=== PATIENT | male | born 1950 | race Caucasian/White ===

== ENCOUNTER → 2020-07-14 13:08 | Outpatient (BNVA) | payer MEDICARE, MEDICAID, SELFPAY | PROVIDERS: PCP Internal Medicine Medical Oncology; Referring Provider Internal Medicine Medical Oncology; Visit Provider Hospitalist | DX: J44.9 Chronic obstructive pulmonary disease, unspecified (principal); R06.00 Dyspnea, unspecified | CPT/HCPCS: 99202 ==

== ENCOUNTER → 2020-07-25 13:51 | Outpatient (BNVA) | payer MEDICARE, MEDICAID, SELFPAY | PROVIDERS: PCP Internal Medicine Medical Oncology; Referring Provider Internal Medicine Medical Oncology; Visit Provider Physician Assistant Medical | DX: Z76.89 Persons encountering health services in other specified circumstances (principal) ==

== ENCOUNTER 2020-08-04 15:15 | Outpatient (REF) | payer MEDICARE, MEDICAID, SELFPAY ==
--- NOTE | 2020-08-04 15:17 | CT_ITS ---
EXAMINATION: CT CHEST SCREENING CLINICAL INFORMATION: History of nicotine dependence. COMPARISON: Chest x-ray 04/09/2020. TECHNIQUE: Multidetector volumetric CT imaging of the chest is performed without contrast using low dose technique. Additional 2D coronal and sagittal reformatted images and axial 3D maximum intensity projection (MIP) images are generated on the CT workstation. This CT examination was performed using dose optimization techniques as appropriate, variously including the following: *Automated exposure control *Adjustment of mA and/or kV according to patient size (this includes techniques or standardized protocols for targeted exams where dose is matched to indication/reason for exam; i.e. extremities or head) *Use of iterative reconstruction technique DLP: 83 mGy-cm FINDINGS: LUNGS: There is mild centrilobular emphysema with bilateral apical cysts. There is a 7 mm nodule superior segment left major fissure likely intrafissural lymph node. No additional pulmonary nodule seen. Minimal reticular interstitial changes in left lung base lateral segment likely scarring or atelectasis. MEDIASTINUM: The mediastinum is normal. PLEURA: There is no pleural effusion. No pleural mass or thickening. AXILLA: No lymphadenopathy. UPPER ABDOMEN: Visualized liver, spleen, pancreas and bilateral adrenal glands are unremarkable. There are punctate radiopaque calculi upper poles of both kidneys. OSSEOUS STRUCTURES: No lytic or sclerotic process seen. There is a small bone island left 7th posterior rib. Mild degenerative vacuum disc phenomena and ventral spondylosis seen in mid and lower dorsal spine. CT/CT lung screening IMPRESSION: Emphysema without acute process. 7 mm nodule likely intrafissural lymph node. No pulmonary nodule or abnormal mediastinal or axillary lymphadenopathy seen. ASSESSMENT: Lung-RADS category 2: Benign. RECOMMENDATION: Low dose annual CT chest
== END 2020-08-04 15:16 | disposition home or self-care (01) ==
LOC: HO.CT 15:15
PROVIDERS: PCP Internal Medicine Medical Oncology; Visit Provider Physician Assistant Medical
DX: Z12.2 Encounter for screening for malignant neoplasm of respiratory organs (principal); Z87.891 Personal history of nicotine dependence
CPT/HCPCS: 71250

== ENCOUNTER → 2020-09-22 15:05 | Outpatient (BNVA) | payer MEDICARE, MEDICAID, SELFPAY | PROVIDERS: PCP Internal Medicine Medical Oncology; Visit Provider Hospitalist | DX: J41.8 Mixed simple and mucopurulent chronic bronchitis (principal); R06.00 Dyspnea, unspecified; R91.1 Solitary pulmonary nodule | CPT/HCPCS: 99212 ==

== ENCOUNTER 2021-01-15 10:26 | Outpatient (REF) | payer MEDICARE, MEDICAID, SELFPAY ==
[2021-01-15 11:26] LABS: MANUAL DIFF FLAG NO
[2021-01-15 11:36] LABS: Basophils Absolute Auto 0.1 X10*3/uL (0.0-0.2); Basophils Percent Auto 0.7 % (0-2); Eosinophils Absolute Auto 0.1 X10*3/uL (0.0-0.4); Eosinophils Percent Auto 0.8 % (0-4); Hematocrit 46.6 % (42-52); Hemoglobin 15.1 g/dl (14.0-18.0); Imm Gran Abs Auto 0.02 X10*3/uL (0.00-0.03); Imm Gran Pct Auto 0.2 % (0.0-0.4); Lymphocytes Absolute Auto 1.2 X10*3/uL (1.2-4.9); Mean Corpuscular HGB Conc 32.4 g/dl (31.0-36.0); Mean Corpuscular Volume 92.6 fL (80-98); Monocytes Absolute Auto 1.1 X10*3/uL (0.1-1.2); Monocytes Percent Auto 12.2 % (2-11); Neutrophils Absolute Auto 6.6 X10*3/uL (2.0-8.3); Neutrophils Percent Auto 73.1 % (45-73); Platelet Count 309 X10*3/uL (160-400); Red Blood Count 5.03 X10*6/uL (4.60-5.80); Red Cell Distribution Width 13.7 % (11.0-16.0); White Blood Count 9.1 X10*3/uL (4.8-10.8)
[2021-01-15 12:02] LABS: Alanine Aminotransferase 28 U/L (0-40); Albumin Level 4.3 g/dL (3.5-5.0); Alkaline Phosphatase 114 U/L (39-117); Anion Gap 13 (12-20); Aspartate Amino Transferase 25 U/L (5-37); Bilirubin Total 0.8 mg/dL (0.0-1.0); Blood Urea Nitrogen 17 mg/dL (9-16); Calcium 9.3 mg/dL (8.4-10.2); Carbon Dioxide 24 mmol/L (22-29); Chloride 105 mmol/L (96-108); Cholesterol 189 mg/dL; Estimated Glomerular Filt Rate > 60; Glucose Fasting 100 mg/dL (60-99); HDL Cholesterol 39 mg/dL; LDL Cholesterol Calculated 121 mg/dl; Potassium 4.9 mmol/L (3.3-5.1); Sodium 137 mmol/L (135-145); Total Protein 7.1 g/dL (6.5-8.0); Triglycerides 149 mg/dL
[2021-01-15 12:10] LABS: Prostate Specific Antigen 4.07 ng/mL (<0.05-4.0)
== END 2021-01-15 10:27 | disposition home or self-care (01) ==
LOC: HO.LAB 10:26
PROVIDERS: PCP Internal Medicine Medical Oncology; Visit Provider Internal Medicine Medical Oncology
DX: Z12.5 Encounter for screening for malignant neoplasm of prostate (principal); J44.9 Chronic obstructive pulmonary disease, unspecified; E66.9 Obesity, unspecified; N40.0 Benign prostatic hyperplasia without lower urinary tract symptoms
CPT/HCPCS: 36415; 80053; 80061; 84153; 85025

== ENCOUNTER → 2021-03-16 14:49 | Outpatient (BNVA) | payer MEDICARE, MEDICAID, SELFPAY | PROVIDERS: PCP Internal Medicine Medical Oncology; Visit Provider Hospitalist | DX: J44.9 Chronic obstructive pulmonary disease, unspecified (principal); R06.00 Dyspnea, unspecified; R91.1 Solitary pulmonary nodule; Z87.891 Personal history of nicotine dependence; Z79.899 Other long term (current) drug therapy | CPT/HCPCS: 99212 ==

== ENCOUNTER → 2021-09-21 15:02 | Outpatient (BNVA) | payer MEDICARE, MEDICAID, SELFPAY | PROVIDERS: PCP Internal Medicine Medical Oncology; Visit Provider Hospitalist | DX: J44.1 Chronic obstructive pulmonary disease with (acute) exacerbation (principal); R91.1 Solitary pulmonary nodule; R97.20 Elevated prostate specific antigen [PSA]; Z79.899 Other long term (current) drug therapy | CPT/HCPCS: 99212 ==

== ENCOUNTER 2021-10-27 14:18 | Outpatient (REF) | payer MEDICARE, MEDICAID, SELFPAY ==
--- NOTE | ~2021-10-27 | CT_ITS ---
EXAMINATION: CT CHEST SCREENING CLINICAL INFORMATION: Smoker COMPARISON: Previous chest CT July 2020 TECHNIQUE: Multidetector volumetric CT imaging of the chest is performed without contrast using low dose technique. Additional 2D coronal and sagittal reformatted images and axial 3D maximum intensity projection (MIP) images are generated on the CT workstation. This CT examination was performed using dose optimization techniques as appropriate, variously including the following: *Automated exposure control *Adjustment of mA and/or kV according to patient size (this includes techniques or standardized protocols for targeted exams where dose is matched to indication/reason for exam; i.e. extremities or head) *Use of iterative reconstruction technique DLP: 81 mGy-cm FINDINGS: LUNGS: Her is evidence of emphysema. There is a 6 mm peripheral or subpleural left lower lobe nodule adjacent to the fissure axial image 245 series 5 that is stable. The lungs are otherwise clear. No endobronchial or endotracheal lesion is seen.. MEDIASTINUM: The mediastinum is normal. PLEURA: There is no pleural effusion. No pleural mass or thickening. AXILLA: No lymphadenopathy. UPPER ABDOMEN: There are small stones in the upper pole of the left kidney. There is question of a lobulated contour to the medial segment of the left lobe of the liver for example axial image 63 that is stable. The stomach is not optimally distended. There is question of wall thickening of the proximal stomach and small posterior diverticulum. OSSEOUS STRUCTURES: There are degenerative changes of the spine. CT/CT lung screening IMPRESSION: Emphysema. Stable left lower lobe nodule probably representing a subpleural nodule. ASSESSMENT: Lung-RADS category 2: Benign S for abdominal findings of left renal stones, lobulated contour of the medial segment the left lobe of the liver and question of gastric wall thickening. There is diverticulosis. RECOMMENDATION: Annual low-dose chest CT follow-up recommended.
== END 2021-10-27 14:19 | disposition home or self-care (01) ==
LOC: HO.CT 14:18
PROVIDERS: PCP Internal Medicine Medical Oncology; Visit Provider Physician Assistant Medical
DX: Z12.2 Encounter for screening for malignant neoplasm of respiratory organs (principal); F17.200 Nicotine dependence, unspecified, uncomplicated
CPT/HCPCS: 71271

== ENCOUNTER → 2021-11-16 14:54 | Outpatient (BNVA) | payer MEDICARE, MEDICAID, SELFPAY | PROVIDERS: PCP Internal Medicine Medical Oncology; Visit Provider Hospitalist | DX: J44.1 Chronic obstructive pulmonary disease with (acute) exacerbation (principal); R91.1 Solitary pulmonary nodule; R06.00 Dyspnea, unspecified; R97.20 Elevated prostate specific antigen [PSA]; Z87.891 Personal history of nicotine dependence | CPT/HCPCS: 99212 ==

== ENCOUNTER → 2022-02-22 14:57 | Outpatient (BNVA) | payer MEDICARE, MEDICAID, SELFPAY | PROVIDERS: PCP Internal Medicine Medical Oncology; Visit Provider Hospitalist | DX: J44.1 Chronic obstructive pulmonary disease with (acute) exacerbation (principal); R91.1 Solitary pulmonary nodule; R06.00 Dyspnea, unspecified; Z79.899 Other long term (current) drug therapy | CPT/HCPCS: 99212 ==

== ENCOUNTER 2022-06-16 14:27 | Outpatient (REF) | payer MEDICARE, MEDICAID, SELFPAY ==
[2022-06-16 16:47] LABS: MANUAL DIFF FLAG NO
[2022-06-16 16:53] LABS: Basophils Absolute Auto 0.1 X10*3/uL (0.0-0.2); Basophils Percent Auto 0.7 % (0-2); Eosinophils Absolute Auto 0.1 X10*3/uL (0.0-0.4); Eosinophils Percent Auto 0.7 % (0-4); Hematocrit 46.5 % (42.0-52.0); Hemoglobin 15.7 g/dl (14.0-18.0); Imm Gran Abs Auto 0.02 X10*3/uL (0.00-0.03); Imm Gran Pct Auto 0.2 % (0.0-0.4); Lymphocytes Absolute Auto 1.5 X10*3/uL (1.2-4.9); Lymphocytes Percent Auto 16.1 % (20-40); Mean Corpuscular HGB Conc 33.8 g/dl (31.0-36.0); Mean Corpuscular Hemoglobin 30.5 pg (27.0-33.0); Mean Corpuscular Volume 90.3 fL (80.0-98.0); Mean Platelet Volume 9.1 fL (9.4-12.4); Monocytes Absolute Auto 1.1 X10*3/uL (0.1-1.2); Monocytes Percent Auto 11.7 % (2-11); Neutrophils Absolute Auto 6.6 x10*3/uL (2.0-8.3); Neutrophils Percent Auto 70.6 % (45-73); Platelet Count 343 X10*3/uL (160-400); Red Blood Count 5.15 X10*6/uL (4.60-5.80); Red Cell Distribution Width 14.2 % (11.0-16.0); White Blood Count 9.4 X10*3/uL (4.8-10.8)
[2022-06-16 17:06] LABS: Alanine Aminotransferase 29 U/L (0-40); Albumin Level 4.4 g/dL (3.5-5.0); Alkaline Phosphatase 111 U/L (39-117); Anion Gap 16 (12-20); Aspartate Amino Transferase 28 U/L (5-37); Bilirubin Total 0.7 mg/dL (0.0-1.0); Blood Urea Nitrogen 25 mg/dL (9-16); Calcium 9.6 mg/dL (8.4-10.2); Carbon Dioxide 23 mmol/L (22-29); Chloride 103 mmol/L (96-108); Cholesterol 217 mg/dL; Estimated Glomerular Filt Rate 58; Glucose Fasting 89 mg/dL (60-99); HDL Cholesterol 44 mg/dL; LDL Cholesterol Calculated 141 mg/dl; Potassium 4.9 mmol/L (3.3-5.1); Sodium 137 mmol/L (135-145); Total Protein 7.5 g/dL (6.5-8.0); Triglycerides 162 mg/dL
[2022-06-16 17:28] LABS: Prostate Specific Antigen 3.97 ng/mL (<0.05-4.0)
== END 2022-06-16 14:28 | disposition home or self-care (01) ==
LOC: HO.HMGCLDS 14:27
PROVIDERS: PCP Internal Medicine Medical Oncology; Visit Provider Internal Medicine Medical Oncology
DX: N40.0 Benign prostatic hyperplasia without lower urinary tract symptoms (principal); E66.9 Obesity, unspecified; Z12.5 Encounter for screening for malignant neoplasm of prostate
CPT/HCPCS: 36415; 80053; 80061; 84153; 85025

== ENCOUNTER → 2022-12-13 14:19 | Outpatient (BNVA) | payer MEDICARE, MEDICAID, SELFPAY | PROVIDERS: PCP Internal Medicine Medical Oncology; Visit Provider Hospitalist | DX: J44.1 Chronic obstructive pulmonary disease with (acute) exacerbation (principal); R91.1 Solitary pulmonary nodule; R06.00 Dyspnea, unspecified; Z79.899 Other long term (current) drug therapy | CPT/HCPCS: 99212 ==

== ENCOUNTER 2023-01-17 16:06 | Outpatient (REF) | payer MEDICARE, MEDICAID, SELFPAY ==
--- NOTE | ~2023-01-17 | CT_ITS ---
EXAMINATION: CT CHEST SCREENING CLINICAL INFORMATION: Former smoker. Quit 15 years ago. 59 pack year history. COMPARISON: Previous CT scans most recent October 2021 TECHNIQUE: Multidetector volumetric CT imaging of the chest is performed without contrast using low dose technique. Additional 2D coronal and sagittal reformatted images and axial 3D maximum intensity projection (MIP) images are generated on the CT workstation. This CT examination was performed using dose optimization techniques as appropriate, variously including the following: *Automated exposure control *Adjustment of mA and/or kV according to patient size (this includes techniques or standardized protocols for targeted exams where dose is matched to indication/reason for exam; i.e. extremities or head) *Use of iterative reconstruction technique DLP: 80 mGy-cm FINDINGS: LUNGS: There is evidence of emphysema. There is a peripheral or subpleural left lower lobe nodule adjacent to the fissure measuring 2 x 6 mm axial image 287 series 5 that is stable. There is mild subsegmental atelectasis in the left lower lobe. There are increased peripheral reticular markings seen question and mild traction bronchiolectasis questionable for mild interstitial lung disease. No endobronchial or endotracheal lesion MEDIASTINUM: Question right 1 cm thyroid nodule versus paratracheal mediastinal lymph node axial image 13 series 3. This is stable and no imaging follow-up recommended.. The mediastinum is otherwise normal. CORONARY ARTERY CALCIFICATION: None visualized on this study. PLEURA: There is no pleural effusion. No pleural mass or thickening. AXILLA: No lymphadenopathy. UPPER ABDOMEN: Small left renal stones. OSSEOUS STRUCTURES: Degenerative changes of the spine. CT/CT lung screening IMPRESSION: Emphysema. Stable 6 mm left lower lobe nodule. Question mild interstitial lung disease. ASSESSMENT: Lung-RADS category 2: Benign RECOMMENDATION: Annual low-dose chest CT follow-up recommended.
== END 2023-01-17 16:07 | disposition home or self-care (01) ==
LOC: HO.CT 16:06
PROVIDERS: PCP Internal Medicine Medical Oncology; Visit Provider Physician Assistant Medical
DX: Z12.2 Encounter for screening for malignant neoplasm of respiratory organs (principal); Z87.891 Personal history of nicotine dependence
CPT/HCPCS: 71271

== ENCOUNTER 2023-02-02 13:32 | Outpatient (REF) | payer MEDICARE, MEDICAID, SELFPAY ==
[2023-02-02 16:29] LABS: MANUAL DIFF FLAG NO
[2023-02-02 16:38] LABS: Basophils Absolute Auto 0.1 X10*3/uL (0.0-0.2); Basophils Percent Auto 0.8 % (0-2); Eosinophils Absolute Auto 0.1 X10*3/uL (0.0-0.4); Eosinophils Percent Auto 1.5 % (0-4); Hematocrit 47.3 % (42.0-52.0); Hemoglobin 15.6 g/dl (14.0-18.0); Imm Gran Abs Auto 0.03 X10*3/uL (0.00-0.03); Imm Gran Pct Auto 0.3 % (0.0-0.4); Lymphocytes Absolute Auto 1.6 X10*3/uL (1.2-4.9); Mean Corpuscular Hemoglobin 30.6 pg (27.0-33.0); Mean Corpuscular Volume 92.9 fL (80.0-98.0); Mean Platelet Volume 9.6 fL (9.4-12.4); Monocytes Absolute Auto 1.2 X10*3/uL (0.1-1.2); Monocytes Percent Auto 12.2 % (2-11); Neutrophils Absolute Auto 6.6 x10*3/uL (2.0-8.3); Neutrophils Percent Auto 68.2 % (45-73); Platelet Count 330 X10*3/uL (160-400); Red Blood Count 5.09 X10*6/uL (4.60-5.80); Red Cell Distribution Width 13.3 % (11.0-16.0); White Blood Count 9.7 X10*3/uL (4.8-10.8)
[2023-02-02 16:56] LABS: Alanine Aminotransferase 43 U/L (0-40); Albumin Level 4.3 g/dL (3.5-5.0); Alkaline Phosphatase 102 U/L (39-117); Anion Gap 14 (12-20); Aspartate Amino Transferase 27 U/L (5-37); Bilirubin Total 0.8 mg/dL (0.0-1.0); Blood Urea Nitrogen 20 mg/dL (9-16); Calcium 10.5 mg/dL (8.4-10.2); Carbon Dioxide 25 mmol/L (22-29); Chloride 104 mmol/L (96-108); Cholesterol 207 mg/dL; Estimated Glomerular Filt Rate 53; Glucose Fasting 96 mg/dL (60-99); HDL Cholesterol 41 mg/dL; LDL Cholesterol Calculated 131 mg/dl; Sodium 138 mmol/L (135-145); Total Protein 7.3 g/dL (6.5-8.0); Triglycerides 175 mg/dL
[2023-02-02 17:06] LABS: Prostate Specific Antigen 5.04 ng/mL (<0.05-4.0)
== END 2023-02-02 13:33 | disposition home or self-care (01) ==
LOC: HO.HMGCLDS 13:32
PROVIDERS: Visit Provider Internal Medicine Medical Oncology
DX: Z12.5 Encounter for screening for malignant neoplasm of prostate (principal); N40.0 Benign prostatic hyperplasia without lower urinary tract symptoms; K21.9 Gastro-esophageal reflux disease without esophagitis; E66.9 Obesity, unspecified
CPT/HCPCS: 36415; 80053; 80061; 84153; 85025

== ENCOUNTER 2023-07-27 14:16 | Outpatient (REF) | payer MEDICARE, MEDICAID, SELFPAY ==
[2023-07-27 15:56] LABS: MANUAL DIFF FLAG NO
[2023-07-27 15:59] LABS: Basophils Absolute Auto 0.1 X10*3/uL (0.0-0.2); Basophils Percent Auto 0.8 % (0-2); Eosinophils Absolute Auto 0.2 X10*3/uL (0.0-0.4); Hematocrit 47.2 % (42.0-52.0); Hemoglobin 15.6 g/dl (14.0-18.0); Imm Gran Abs Auto 0.03 X10*3/uL (0.00-0.03); Imm Gran Pct Auto 0.3 % (0.0-0.4); Lymphocytes Absolute Auto 1.5 X10*3/uL (1.2-4.9); Lymphocytes Percent Auto 15.2 % (20-40); Mean Corpuscular HGB Conc 33.1 g/dl (31.0-36.0); Mean Corpuscular Hemoglobin 30.4 pg (27.0-33.0); Mean Platelet Volume 9.1 fL (9.4-12.4); Monocytes Absolute Auto 1.2 X10*3/uL (0.1-1.2); Monocytes Percent Auto 12.2 % (2-11); Neutrophils Absolute Auto 6.6 x10*3/uL (2.0-8.3); Neutrophils Percent Auto 69.5 % (45-73); Platelet Count 313 X10*3/uL (160-400); Red Blood Count 5.13 X10*6/uL (4.60-5.80); Red Cell Distribution Width 13.2 % (11.0-16.0); White Blood Count 9.5 X10*3/uL (4.8-10.8)
[2023-07-27 16:13] LABS: Alanine Aminotransferase 34 U/L (0-40); Albumin Level 4.4 g/dL (3.5-5.0); Alkaline Phosphatase 98 U/L (39-117); Anion Gap 11 (12-20); Aspartate Amino Transferase 26 U/L (5-37); Bilirubin Total 0.4 mg/dL (0.0-1.0); Blood Urea Nitrogen 19 mg/dL (9-16); Calcium 9.9 mg/dL (8.4-10.2); Carbon Dioxide 26 mmol/L (22-29); Chloride 107 mmol/L (96-108); Cholesterol 212 mg/dL (<200); Estimated Glomerular Filt Rate 59; Glucose Fasting 110 mg/dL (60-99); HDL Cholesterol 42 mg/dL (>40); LDL Cholesterol Calculated 142 mg/dL (<100); Potassium 5.1 mmol/L (3.3-5.1); Sodium 139 mmol/L (135-145); Total Protein 7.8 g/dL (6.5-8.0); Triglycerides 141 mg/dL (<150)
[2023-07-29 11:18] LABS: Percent Free Prostate Spec Ag 20 % (calc) (>25); Prostate Specific Ag Total 4.9 ng/mL (< OR = 4.0)
== END 2023-07-27 14:17 | disposition home or self-care (01) ==
LOC: HO.HMGCLDS 14:16
PROVIDERS: PCP Internal Medicine Medical Oncology; Visit Provider Internal Medicine Medical Oncology
DX: Z12.5 Encounter for screening for malignant neoplasm of prostate (principal); N40.0 Benign prostatic hyperplasia without lower urinary tract symptoms; E66.3 Overweight
CPT/HCPCS: 36415; 80053; 80061; 84154; 85025

== ENCOUNTER 2023-11-14 15:07 | Outpatient (REF) | payer MEDICARE, MEDICAID, SELFPAY ==
[2023-11-14 09:06] VITALS: PULSE 92; RESP 14; O2SAT 96
--- NOTE | 2023-11-14 16:09 | PFT_ITS ---
Indication: COPD Spirometry [FEV1 to FVC 45%; FEV1 1.84 L; FVC 4.05 L. there was a significant response to bronchodilators noted. Maximum voluntary ventilation 50% predicted.] Lung Volumes Could not be measured after multiple attempts. Diffusion Capacity [DLCO 51% predicted] Comparisons [none] Interpretation [There has an obstructive ventilatory defect consistent with COPD, moderate to severe. There was a significant response to bronchodilators noted. This is a moderate decrease the maximum voluntary ventilation. Lung volumes could not be measured. The patient has a moderate diffusion impairment likely secondary to emphysematous changes and or other parenchymal lung conditions should be considered.] MTDD
== END 2023-11-14 15:08 | disposition home or self-care (01) ==
LOC: HO.RESP 15:07
PROVIDERS: PCP Internal Medicine Medical Oncology; Visit Provider Hospitalist
DX: J44.9 Chronic obstructive pulmonary disease, unspecified (principal)
CPT/HCPCS: 94010; 94640; 94727; 94729

== ENCOUNTER → 2023-11-14 16:09 | Outpatient (BNV) | payer MEDICARE, MEDICAID, SELFPAY | PROVIDERS: PCP Internal Medicine Medical Oncology; Visit Provider Hospitalist | DX: J44.9 Chronic obstructive pulmonary disease, unspecified (principal) | CPT/HCPCS: 94060; 94729 ==

== ENCOUNTER 2023-12-14 11:04 | Outpatient (AMB) | payer MEDICARE, MEDICAID, SELFPAY ==
[2023-12-14 11:12] VITALS: PULSE 89; O2SAT 93; BMI 28.9
--- NOTE | 2023-12-14 11:12 | A.OFFVIS_ITS ---
Intake Vital Signs 12/14/23 11:12 Height 6 ft 2 in Weight 225 lb BMI 28.9 Pulse 89 Pulse Source Pulse Oximeter Pulse Oximetry (%) 93 Oxygen Delivery Method Room Air Intake Visit Reasons: PFT Results/COPD Performance Reporter Required: No Allergies No Known Allergies Allergy (Verified 12/14/23 11:14) HPI HPI Comments History of Present Illness Details The patient is a 73 year-old gentleman known history of tobacco dependency complaining of worsening shortness of breath. Apparently patient was a lifelong smoker although he quit about 9 years ago. He quit back down after developing a COPD exacerbation due to a viral syndrome. He has not smoking recess. He has been complaining of worsening dyspnea on exertion moderate severity. 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 He is also having hard time going up a flight of stairs. Therefore he underwent a chest x-ray demonstrating hyperinflated lungs consistent with COPD. He also underwent pulmonary function studies demonstrating severe obstructive ventilatory defect consistent with severe COPD. Also has a moderate diffusion impairment. 09/22/2020 the patient is here for pulmonary follow-up visit. The patient overall feels little better with the medication. He has been using the Breo at nighttime in addition to using the rescue inhaler. He got a prescription for the albuterol generic in he does not feel like it works just as good as the ventilator. She rather have the ventilator HFA. I will requested if he can get it if not he knows that he will have to try the read 1. in the meantime he has been taking the Breo at nighttime he is going to change due to daytime and can make sure a rinses mouth well. He complains of chest congestion and difficulty to expectorating. This consistent with his chronic bronchitis. At this point will try to minimize prednisone. He will be a great candidate for Daliresp. Therefore he is going to started he will started 3 times a week and then increases slowly as he is tolerating the GI symptoms subside. If the symptoms do not subside he is to call and also on the lower dose. Patient is to continue using his respiratory therapy. We did review his lung cancer screening CT scan back in July 2020 which demonstrated a 7 mm pulmonary nodule that will need follow-up. He was read as a rads 2 due to the fact that appears to be trying gland shape and more consistent with a lymph node. 03/16/2021 the patient is here for pulmonary follow-up visit. Overall the patient has been doing better on scarring respiratory regimen. The Breo inhaler has been helpful although he does complaint of throat irritation he has been tolerating the Daliresp. Still complaining of getting winded specially with activity. [id number] severity. Does get better with rest. On examination he still wheezy. Therefore will go ahead and had Spiriva to his regimen hoping to maximize his respiratory therapy. In the meantime the patient has not had any additional imaging since back in July. He is scheduled to undergo a repeat CT scan in July 2021. We initially spoken about doing earlier but at this point which is wait to done. Will going to continue with the lung cancer screening program. If the patient develops in other significant symptoms he is call the office and we can always reassess the earlier time. In the meantime will follow up after his CT scan. 09/21/2021 the patient is here for pulmonary follow-up visit. He is complaining of worsening cough typically the morning. He also has shortness of breath and chest tightness. He has been using his inhalers regularly which include Breo and Spiriva. He also has a short-acting beta agonist. She was prescribed Daliresp but does not appear to using regularly. On examination today has a lot of wheezing. The patient was given a DuoNeb treatment with partial improvement of his symptoms. I will treat him for COPD exacerbation. The patient will benefit from nebulizer at home. O providing 1 through her local [employer] company. The patient has not had his low-dose CT scan his to be scheduled for the 2021. I did reach out to the lung cancer screening program in order for him to be scheduled. 11/16/2021 the patient is here for a pulmonary follow-up visit. His breathing still an issue. Still having significant wheezing. We placed him on DuoNeb but now complaining of a dry mouth. Therefore he has been able to do them as often. I will switch him over to regular albuterol in order for him to have less adverse effects. In addition to that will switch his Breo to Trelegy with hopeful maximizing her respiratory therapy. He continues to tolerate the Daliresp. He did have a CT scan of the chest that was personally by me demonstrating stable pulmonary nodules which is reassuring. It appears however that she does have some kidney stones that her basically asymptomatic at this time. The patient will follow up with his primary care provider regarding this issue. He is concerned because his grandmother had complications from kidney stones. 02/22/2022 the patient is here for pulmonary follow-up visit. Overall the patient has been doing well. He is responding well to the Trelegy. He continues on the Daliresp. Continues to have some shortness breath with activity. We also switched amount of the DuoNeb because of the dry mouth issue. he is still participating in the lung cancer screening program. His next CT scan is going to be October 2022. he continues to have some reflux symptoms. He responds well to the omeprazole. We did talk about the importance of the reflux diet. Otherwise patient is without any other complaints. 12/13/2022 the patient is here for pulmon princess follow-up visit. Overall he is doing well. Seems to have episodes of wheezing still. Seems like he is overmedicated as he is taking Breo Spiriva and Trelegy. We did talk about all the medications and the need for him to simplify his regimen and not to over medicate himself. I did give him a diagram picture of all the inhalers and the once he should be taking which should be only the Trelegy and Ventolin for rescue. He was also taking Daliresp but he decided to stop using it since he was not helpful. He was supposed to have a CT scan of the chest in October 2022 as part of the lung cancer screening program but he has not had 1 as of yet. He also was supposed to have pulmonary function studies but he did not hav e yet. Therefore, I did send a message out to the lung cancer program in order for him to be rescheduled for CT scan and then will reschedule him for PFTs next year with follow-up. If the patient has any problems prior to that he is to call for the office for an appointment. In the meantime undecided prescription for Singulair in order to have him with potential allergy related wheezing that is may be the case right now. [facility] Medical History (Updated 09/21/21 @ 19:45 by Gokul Narayanan MD) Elevated PSA measurement Pulmonary nodule Personal history of nicotine dependence Dyspnea COPD (chronic obstructive pulmonary disease) Social History (Updated 09/21/21 @ 15:13 by SARINA Sheikh) Patient Tobacco Use Status: Former Tobacco user Tobacco use type: Cigarette Years Smoked: Since 12 years old Review of Systems Const Denies night sweats ENT Denies change in voice, Denies lip swelling, Denies mouth pain, Reports nasal congestion, Reports nasal discharge and Denies tongue swelling Card Denies chest pain and Reports dyspnea on exertion Resp Reports cough, Reports dyspnea on exertion and Reports wheezing GI Denies abdominal pain Musc Denies no additional complaints Neuro Denies Neuro-related abnormal movements Psych Denies no additional complaints Anand/Lymph Denies easy bleeding and Denies lymphadenopathy Aller/Immun Denies lip swelling, Denies tongue swelling and Reports wheezing Physical Exam Vital Signs: Last Vital Signs Pulse 89 12/14/23 11:12 Pulse Ox 93 12/14/23 11:12 Oxygen Delivery Method Room Air 12/14/23 11:12 BMI result Body Mass Index 28.9 Const General: alert Neck Neck: Yes normal visual inspection, Yes full ROM and Yes no lymphadenopathy Chest Chest palpation & inspection: normal inspection of the chest Resp Effort & Inspection: prolonged expiratory phase Auscultation: wheezes and diminished lung sounds Cardio Rate: regular rate Rhythm: regular rhythm Heart sounds: S1 normal heart sound present and S2 normal heart sound present GI Palpation (GI): Soft to palpation and nontender Auscultation: normal bowel sounds Skin General skin exam: rashes and/or lesions noted Assessment & Plan Assessment & Plan (1) Pulmonary nodule: Code(s): R91.1 - Solitary pulmonary nodule (2) COPD (chronic obstructive pulmonary disease): Code(s): J44.9 - Chronic obstructive pulmonary disease, unspecified Qualifiers: COPD type: COPD with acute exacerbation Qualified Code(s): J44.1 - Chronic obstructive pulmonary disease with (acute) exacerbation (3) Dyspnea: Comment: Primarily due to airway obstruction Code(s): R06.00 - Dyspnea, unspecified Qualifiers: Dyspnea type: dyspnea on exertion Qualified Code(s): R06.00 - Dyspnea, unspecified Plan continue Trelegy short-acting beta agonist as needed continue Singulair Stopped Daliresp continue albuterol twice a day CT scan of the chest lung cancer screening program spring 2023 reflux diet PPI Azithromycin MWF x 4 weeks consider pulmonary rehab F/U 8-12 Medications: New azithromycin Take 1 tablet on Tuesday/Tuesday/Tuesday 250 mg PO 3XW 12 tabs 0RF 28 days K21.9 - Gastro-esophageal reflux disease without esophagitis Coding Level of Care Code Est Pt Level 4 (79980) Diagnoses Pulmonary nodule R91.1 Chronic obstructive pulmonary disease with acute exacerbation J44.1 COPD type: COPD with acute exacerbation Dyspnea on exertion R06.00 Dyspnea type: dyspnea on exertion Time Spent (min) 17
== END 2023-12-14 11:30 | disposition home or self-care (01) ==
PROVIDERS: PCP Internal Medicine Medical Oncology; Visit Provider Hospitalist
DX: R91.1 Solitary pulmonary nodule (principal); J44.1 Chronic obstructive pulmonary disease with (acute) exacerbation; R06.00 Dyspnea, unspecified
CPT/HCPCS: 99214

== ENCOUNTER → 2023-12-14 11:04 | Outpatient (BNVA) | payer MEDICARE, MEDICAID, SELFPAY | PROVIDERS: Visit Provider Hospitalist | DX: J44.1 Chronic obstructive pulmonary disease with (acute) exacerbation (principal); R91.1 Solitary pulmonary nodule; R06.00 Dyspnea, unspecified | CPT/HCPCS: 99212 ==

== ENCOUNTER 2024-02-01 12:49 | Outpatient (REF) | payer MEDICARE, MEDICAID, SELFPAY ==
[2024-02-01 16:36] LABS: MANUAL DIFF FLAG NO
[2024-02-01 16:53] LABS: Basophils Absolute Auto 0.1 X10*3/uL (0.0-0.2); Basophils Percent Auto 0.8 % (0-2); Eosinophils Absolute Auto 0.2 X10*3/uL (0.0-0.4); Eosinophils Percent Auto 1.8 % (0-4); Hematocrit 47.3 % (42.0-52.0); Hemoglobin 15.8 g/dl (14.0-18.0); Imm Gran Abs Auto 0.04 X10*3/uL (0.00-0.03); Imm Gran Pct Auto 0.4 % (0.0-0.4); Lymphocytes Absolute Auto 1.5 X10*3/uL (1.2-4.9); Lymphocytes Percent Auto 14.3 % (20-40); Mean Corpuscular HGB Conc 33.4 g/dl (31.0-36.0); Mean Corpuscular Hemoglobin 31.1 pg (27.0-33.0); Mean Corpuscular Volume 93.1 fL (80.0-98.0); Monocytes Absolute Auto 1.1 X10*3/uL (0.1-1.2); Neutrophils Absolute Auto 7.4 x10*3/uL (2.0-8.3); Neutrophils Percent Auto 71.7 % (45-73); Platelet Count 308 X10*3/uL (160-400); Red Blood Count 5.08 X10*6/uL (4.60-5.80); Red Cell Distribution Width 13.5 % (11.0-16.0); White Blood Count 10.4 X10*3/uL (4.8-10.8)
[2024-02-01 17:04] LABS: Alanine Aminotransferase 40 U/L (0-40); Albumin Level 4.3 g/dL (3.5-5.0); Alkaline Phosphatase 96 U/L (39-117); Anion Gap 14 (12-20); Aspartate Amino Transferase 31 U/L (5-37); Bilirubin Total 0.5 mg/dL (0.0-1.0); Blood Urea Nitrogen 23 mg/dL (9-16); Calcium 9.7 mg/dL (8.4-10.2); Carbon Dioxide 23 mmol/L (22-29); Chloride 108 mmol/L (96-108); Cholesterol 210 mg/dL (<200); Estimated Glomerular Filt Rate 59; Glucose Fasting 104 mg/dL (60-99); HDL Cholesterol 43 mg/dL (>40); LDL Cholesterol Calculated 126 mg/dL (<100); Potassium 5.5 mmol/L (3.3-5.1); Sodium 139 mmol/L (135-145); Total Protein 7.5 g/dL (6.5-8.0); Triglycerides 205 mg/dL (<150)
[2024-02-01 17:21] LABS: Prostate Specific Antigen 3.48 ng/mL (<0.05-4.0)
== END 2024-02-01 12:50 | disposition home or self-care (01) ==
LOC: HO.HMGCLDS 12:49
PROVIDERS: PCP Internal Medicine Medical Oncology; Visit Provider Internal Medicine Medical Oncology
DX: N40.0 Benign prostatic hyperplasia without lower urinary tract symptoms (principal); E66.9 Obesity, unspecified; Z12.5 Encounter for screening for malignant neoplasm of prostate
CPT/HCPCS: 36415; 80053; 80061; 84153; 85025

== ENCOUNTER → 2024-02-08 13:59 | Outpatient (BNVA) | payer MEDICARE, MEDICAID, SELFPAY | PROVIDERS: PCP Internal Medicine Medical Oncology; Referring Provider Internal Medicine Medical Oncology; Visit Provider Nurse Practitioner Family ==

== ENCOUNTER 2024-07-10 08:23 | Day surgery (SDC) | payer MEDICARE, MEDICAID, SELFPAY ==
[2024-07-06 12:29] VITALS: BMI 30.8
--- NOTE | 2024-07-09 12:08 | HO.ANESPROP2 ---
Documented by User: Sindy Cuenca NP 07/09/24 12:08 HPI - Anesthesia Eval Consult details Narrative: 73yo M for Colonoscopy PMFSH Active Problems Active Problems: All Active Problems Elevated PSA measurement (Acute) Pulmonary nodule (Acute) Personal history of nicotine dependence (Acute) Dyspnea (Acute) COPD (chronic obstructive pulmonary disease) (Acute) Past Medical History Medical History Elevated PSA measurement Pulmonary nodule Personal history of nicotine dependence Dyspnea COPD (chronic obstructive pulmonary disease) Surgical History Surgical History Hx of appendectomy Social History Social History Patient Tobacco Use Status: Former Tobacco user Tobacco use type: Cigarette Years Smoked: Since 12 years old Meds Allergies Allergy/AdvReac Type Severity Reaction Status Date / Time No Known Allergies Allergy Verified 02/08/24 14:14 Home Medications ?Medication ?Instructions ?Recorded ?Confirmed ?Last Taken ?Type omeprazole 20 mg capsule,delayed 20 mg PO DAILY 07/14/20 03/16/21 Unknown History release nebulizers 12/13/22 Unknown History Exam Height,Weight and Vital Signs: Height 6 ft 2 in Weight 108.862 kg Assessment and Plan Assessment Anesthesia Assessment: Chart Reviewed Documented by User: Asael Johnson MD 07/10/24 14:10 PMFSH Past Medical History Medical History Elevated PSA measurement Pulmonary nodule Personal history of nicotine dependence Dyspnea COPD (chronic obstructive pulmonary disease) Family History Family history of problems with anesthesia: No Surgical History Surgical History Hx of appendectomy History of Problems with Anesthesia: No Social History Social History Patient Tobacco Use Status: Former Tobacco user Tobacco use type: Cigarette Years Smoked: Since 12 years old Meds Allergies Allergy/AdvReac Type Severity Reaction Status Date / Time No Known Allergies Allergy Verified 02/08/24 14:14 Home Medications ?Medication ?Instructions ?Recorded ?Confirmed ?Last Taken ?Type omeprazole 20 mg capsule,delayed 20 mg PO DAILY 07/14/20 03/16/21 Unknown History release nebulizers 12/13/22 Unknown History Exam Airway Mallampati Class: II TM Dist: >3cm Neck ROM: Full Loose/Missing/Broken Teeth: Yes Assessment and Plan Assessment Anesthesia Assessment: Anesthesia Plan Discussed Final Anesthetic Review Family History of Problems with Anesthesia: No History of Problems with Anesthesia: No NPO: Yes ASA Class: III Final Preanesthetic Review: No Changes in Pt Med Stat, Meds/Allgs Chart Reviewed, Consent Obtained/Reviewed and Anes Risks/Benef Reviewed Patient Risk: Intermediate Procedure Risk: Low Anesthetic Plan Anesthetic Plan: MAC: Disposition: Standard PACU
[2024-07-10 08:34] VITALS: BP 126/80; PULSE 90; RESP 16; TEMP 36.7; O2SAT 91; BMI 29.8
[2024-07-10] MEDS: Lactated Ringers 1,000 ML 100 ML IVCONT (08:43)
[2024-07-10] MEDS: Albuterol Sulfate (0.083%) 2.5 MG/3 ML VIAL.NEB INHALE (08:56)
[2024-07-10 08:58] VITALS: PULSE 86; RESP 16; O2SAT 93
--- NOTE | 2024-07-10 09:02 | MHC.SHP ---
Pre-Procedural Eval Section A - 24 Hr Update-Section A only Date of Service: 07/10/24 Section B - Complete if H&P > 30 days Chief Complaint: Encounter for screening for malignant neoplasm of Relevant Family History (Specify if Yes): No Relevant Social History: None Present Medications: see Short Stay Collaborative assessment Medical History: Significant History (Elevated PSA measurement Pulmonary nodule Personal history of nicotine dependence Dyspnea COPD (chronic obstructive pulmonary disease)) History of Previous Operations: Relevant previous surgery/procedure and date(s) (Hx of appendectomy) Allergies: Allergies Allergy/AdvReac Type Severity Reaction Status Date / Time No Known Allergies Allergy Verified 02/08/24 14:14 Review of Systems Sugical H&P ROS: Negative: Constitution, Cardiovascular, Respiratory, Neurological, Psychiatric, Hem-Onc, Allergic/Immunologic, Gastrointestinal, Genitourinary, Musculoskeletal, Integumentary, Endocrine and Eyes/Ears/Nose/Throat Exam Surgical H&P Exam: Normal: HEENT, Normal: Heart, Normal: Lungs, Normal: Extremities, Normal: Abdomen, Normal: Skin and Normal: Neurological Plan Diagnosis/Plan: Unchanged I have reviewed the history and physical and performed a pertinent physical examination on my patient. No changes have occurred unless specified. Time Spent With Patient Time: Total time managing care of this patient today ____ minutes.
--- NOTE | 2024-07-10 09:46 | P.OP_ITS ---
Operative Note Operative Note Date of Service: 07/10/24 Narrative: Operative Information Procedure Description: Colonoscopy Indication: screening Anesthesia: MAC COLONOSCOPY Instrument: Olympus variable stiffness pediatric scope 190L Colonoscopy Monitoring: Vital signs and clinical assessment, continuous EKG monitoring, Pulse oximetry, Carbon Dioxide monitoring and blood pressure monitoring were done throughout the procedure. Colon withdrawal time was 17 minutes. Procedure: The patient was placed in the left lateral decubitis position and pre-procedure medications were administered. After a digital rectal examination of the ano-rectum, the video colonoscope was inserted into the rectum and advanced through the colon to the cecum/TI. The colonoscope was slowly withdrawn in a retrograde panoramic fashion and the colon mucosa was carefully examined including a retroflexed view of the rectum. Findings and interventions are described below. Procedure Difficulty: moderate Findings: Terminal Ileum-not intubated Cecum:normal Right sided retroflexion- normal Ascending Colon: normal Transverse Colon -normal Descending Colon:normal Sigmoid Colon: diverticulosis, 9-10 mm sessile polyp removed with cold snare Rectum: Retroflexion with small internal hemorrhoids seen, grade I, 4-7 mm sessile polyp removed with cold forceps, 10-12 mm sessile polyp injected and lifted with eleview and then removed with cold snare Anorectum - normal Intervention: eleview injection and EMR, cold snare, cold forceps Colon preparation: [place] Bowel Preparation Scale Right colon; 2 Transverse colon: 2 Left colon; 2 (0 = Unprepared colon segment with mucosa not seen due to solid stool that cannot be cleared. 1 = Portion of mucosa of the colon segment seen, but other areas of the colon segment not well seen due to staining, residual stool and/or opaque liquid. 2 = Minor amount of residual staining, small fragments of stool and/or opaque liquid, but mucosa of colon segment seen well. 3 = Entire mucosa of colon segment seen well with no residual staining, small fragments of stool or opaque liquid) Impression and Post Procedure Diagnosis: diverticulosis colon polyps internal hemorrhoids Plan: High fiber diet leaflet Avoid straining at stool, epsom salts and sitz bath, anusol supps or cream Repeat Colonoscopy in 3-4 years due to polyps or earlier if clinically indicated Above findings were reviewed with the patient and relevant handouts were provided if indicated.
[2024-07-10 09:56] VITALS: BP 102/47; PULSE 76; RESP 16; TEMP 36.7; O2SAT 93
[2024-07-10 10:13] VITALS: BP 102/53; PULSE 84; RESP 16; TEMP 36.6; O2SAT 93
== END 2024-07-10 10:42 | disposition home or self-care (01) ==
PROVIDERS: PCP Internal Medicine Medical Oncology; Visit Provider Internal Medicine Gastroenterology
PROC: 0DJD8ZZ Inspection of Lower Intestinal Tract, Via Natural or Artificial Opening Endoscopic (ICD-10-PCS; CPT 45378; principal; 2024-07-10 10:00)
DX: Z12.11 Encounter for screening for malignant neoplasm of colon (principal); D12.5 Benign neoplasm of sigmoid colon; D12.8 Benign neoplasm of rectum; K57.30 Diverticulosis of large intestine without perforation or abscess without bleeding; K64.8 Other hemorrhoids; J44.9 Chronic obstructive pulmonary disease, unspecified; K21.9 Gastro-esophageal reflux disease without esophagitis; Z87.891 Personal history of nicotine dependence
CPT/HCPCS: 45385; 45381; 45380; 88305; 94640; J2003; J2250; J2704

== ENCOUNTER → 2024-07-10 08:23 | Outpatient (BNV) | payer MEDICARE, MEDICAID, SELFPAY | PROVIDERS: PCP Internal Medicine Medical Oncology; Visit Provider Internal Medicine Gastroenterology | DX: Z12.11 Encounter for screening for malignant neoplasm of colon (principal); D12.5 Benign neoplasm of sigmoid colon; D12.8 Benign neoplasm of rectum; K57.30 Diverticulosis of large intestine without perforation or abscess without bleeding; K64.0 First degree hemorrhoids | CPT/HCPCS: 45380; 45381; 45385 ==

== ENCOUNTER 2024-08-10 13:02 | Outpatient (REF) | payer MEDICARE, MEDICAID, SELFPAY ==
[2024-08-10 16:02] LABS: MANUAL DIFF FLAG NO
[2024-08-10 16:08] LABS: Basophils Absolute Auto 0.1 X10*3/uL (0.0-0.2); Basophils Percent Auto 0.8 % (0-2); Eosinophils Absolute Auto 0.1 X10*3/uL (0.0-0.4); Eosinophils Percent Auto 0.6 % (0-4); Hematocrit 46.2 % (42.0-52.0); Hemoglobin 15.3 g/dl (14.0-18.0); Imm Gran Abs Auto 0.03 X10*3/uL (0.00-0.03); Imm Gran Pct Auto 0.3 % (0.0-0.4); Lymphocytes Absolute Auto 1.5 X10*3/uL (1.2-4.9); Lymphocytes Percent Auto 15.7 % (20-40); Mean Corpuscular HGB Conc 33.1 g/dl (31.0-36.0); Mean Corpuscular Hemoglobin 30.5 pg (27.0-33.0); Mean Platelet Volume 9.4 fL (9.4-12.4); Monocytes Percent Auto 10.4 % (2-11); Neutrophils Absolute Auto 6.9 x10*3/uL (2.0-8.3); Neutrophils Percent Auto 72.2 % (45-73); Platelet Count 298 X10*3/uL (160-400); Red Blood Count 5.02 X10*6/uL (4.60-5.80); Red Cell Distribution Width 13.5 % (11.0-16.0); White Blood Count 9.6 X10*3/uL (4.8-10.8)
[2024-08-10 16:32] LABS: Alanine Aminotransferase 31 U/L (0-40); Albumin Level 4.3 g/dL (3.5-5.0); Alkaline Phosphatase 92 U/L (39-117); Anion Gap 10 (12-20); Aspartate Amino Transferase 33 U/L (5-37); Bilirubin Total 0.6 mg/dL (0.0-1.0); Blood Urea Nitrogen 26 mg/dL (9-16); Carbon Dioxide 26 mmol/L (22-29); Chloride 108 mmol/L (96-108); Estimated Glomerular Filt Rate > 60; Glucose Random 104 mg/dL (60-115); Sodium 139 mmol/L (135-145); Total Protein 7.6 g/dL (6.5-8.0)
--- OUTSIDE RECORDS SUMMARY | 2024-08-15 09:26 | XMS_ITS ---
Author Organization Thaddeus Oreilly III, MD Address [address] [place] [address] [place] [address] Care Team Providers Care Traffic Court Referee Name Role Phone Thaddeus Oreilly Primary Care Provider Allergies Allergen (clinical drug ingredient) Drug/Non Drug Allergy documented on EMR Reaction Allergy Type Onset Date Status No Known Drug Allergy Unknown Drug Allergy Active REASON FOR VISIT GERD, COPD, Benign prostatic hypertrophy, Obesity Medications Medication SIG (Take, Route, Frequency, Duration) Notes Start Date End Date Status Omeprazole 20 MG 1 capsule 30 minutes before morning meal Orally Once a day Active Ventolin HFA 108 (90 Base) MCG/ACT INHALE 2 PUFFS INTO THE LUNGS EVERY 6 HOURS Active Roflumilast 500 MCG 1 tablet Orally Once a day Active Montelukast Sodium 10 MG TAKE 1 TABLET B Y MOUTH AT BEDTIME Diagnosis Unavailable Oral Active Social History Tobacco Use: Social History Observation Description Date Details (start date - stop date) Former Smoker NA - NA Sex Assigned At : Social History Observation Description Sex Assigned At Male Tobacco Use/Smoking Question Answer Notes Patient is a former smoker How long has it been since you last smoked? > 10 years Additional Findings: Tobacco Non-User Ex-cigaret te smoker Vital Signs Blood pressure systolic 139 mm Hg 02/01/20 24 Blood pressure diastolic 67 mm Hg 024 Heart Rate 99 /min 02/01/2024 Height 74 in 02/01/2024 Weight 243 lbs 02/01/2024 BMI 31.2 kg/m2 02/01/2024 Encounters Encounter Location Date Provider Diagnosis Thaddeus Oreilly III, MD [address] [place] [address] [place] [address] 02/01/2024 Thaddeus Oreilly Benign prostatic hypertrophy N40.0 ; Obesity (BMI 30.0-34.9) E66.9 ; Gastroesophageal reflux disease without esophagitis K21.9 ; Chronic obstructive pulmonary disease, unspecified COPD type J44.9 and Former smoker Z87.891 Assessments Encounter Date Diagnosis (ICD Code) Assessment Notes Treat ment Notes Treatment Clinical Notes 02/01/2024 Benign prostatic hypertrophy (ICD-10 - N40.0) He rises from sleep once a night to urinate. We discussed lifestyle modification as a way to reduce nocturia. 02/01/2024 Obesity (BMI 30.0-34.9) (ICD-10 - E66.9) His body mass index is 31 with 243 pounds. We have reviewed his weight loss strategy. We have discussed diet and nutrition. I recommended he lose weight at a rate of one half up of a pound to a diet restricted in fat calories and sodium combined with regular exercise. 02/01/2024 Gastroesophageal reflux disease without esophagitis (ICD-10 - K21.9) His symptoms are well-controlled with current regimen. No change was necessary today. 02/01/2024 Chronic obstructive pulmonary disease, unspecified COPD type (ICD-10 - J44.9) He will continue to see the shirt ironer regularly. The 6 mm pulmonary nodule will be followed carefully. He will refrain from smoking. He will exercise regularly. He will continue to use his nebulizer and his new inhaler. 02/01/2024 Former smoker (ICD-1 0 - Z87.891) He is highly motivated not to smoke. We discussed a plan to prevent relapse in times of stress and illness. Plan Of Treatment Medication Medication Name Sig Start Date Stop Date Notes Omeprazole 20 MG 1 capsule 30 minutes before morning meal Orally Once a day Ventolin HFA 108 (90 Base) MCG/ACT INHALE 2 PUFFS INTO THE LUNGS EVERY 6 HOURS Roflumilast 500 MCG 1 tablet Orally Once a day Montelukast Sodium 10 MG TAKE 1 TABLET B Y MOUTH AT BEDTIME Diagnosis Unavailable Oral Next Appt Details Follow Up: 3 Months, Reason: OV Provider Name:Thaddeus Oreilly, 11/05/2024 03:00:00 PM, [address] [place] [address] DARLIN CARVER, [place], [phone], Progress Notes * CURT WOODSDOB:1950 (73 yo M)Acc No.[id number]:02/01/2024 Progress Notes Patient:?CURT WOODS Provider:?Thaddeus Oreilly MD :1950???Age:73 Y???Sex:Male Thomas e:02/01/2024 Address:[address] [place], [place] [id number] Subjective: * Chief Complaints: * ???GERDCOPDBenign prostatic hypertrophyObesity * HPI: ???COVID-19 Screening:? He returns to the office for a scheduled visit to manage several medical issues. He is scheduled to have a colonoscopy on Tuesday, February 08, 2024 at 2 PM. His weight is stable at 243 and his blood pressure is 139O/67. His esophageal reflux as well controlled. He is not smoking. He has had no recent exacerbations of his COPD. ?Questions?Have you experienced fever, chills, cough, sore throat, shortness of breath, difficulty breathing, muscle aches, loss of taste or smell??No ?Have you been exposed to the virus within the last 10 days??No ?Have you travelled internationally in the last 10 days??No ?Have you been exposed to COVID-19 in the past??No * ROS:?General/Constitutional:?pain?only normal aches and pains.?Chills?denies.?Fatigue?admits.?Fever?denies.?ENT:?Decreased hearing?denies.?Respiratory:?Cough?denies.?Cardiovascular:?Chest pain with exertion?denies.?Dyspnea on exertion?with moderate activity.?Shortness of breath?that is mild.?Gastrointestinal:?Constipation?occasional.?Decreased appetite?denies.?Diarrhea?denies.?Heartburn?denies.?Nausea?denies.?Rectal bleeding?denies.?Vomiting?denies.?Hematology:?bruising?denies.?petechiae?denies.?Swollen glands?none have been noted.?Genitourinary:?Frequent urination?once a night.?Musculoskeletal:?Muscle aches?denies.?Painful joints?denies.?Sciatica?denies.?Weakness?denies.?Skin:?Itching?denies.?Rash?denies.?Skin lesion(s)?denies.?Neurologic:?Difficulty speaking?denies.?Dizziness?denies.?Headache?denies.?Low back pain?denies.?Psychiatric:?Depressed mood?denies.? * Medical History:? * Surgical History:?appendecto my age 7 * Hospitalization/Major Diagno stic Procedure:?Denies Past Hospitalization * Family History:?Father: dece ased 60 yrs, Head and neck cancer, diagnosed with Cancer.?Mother: 60 yrs, rheumatic heard disease, arthritis, diabetes mellitus, diagnosed with DM.?Siblings: alive, kidney problems, diagnosed with DM.?3 brother(s) , 2 sister(s) . .? His brothers all had renal disorders and have . One sister, Jane, donated a kidney to her brother. He has no children. He is not aware of any family history of addiction other than smoking. He is not aware of any family history of substance abuse or mental illness. * Social History:?Tobacco Use:?Tobacco Use/Smoking?Patient is a?former smoker ?How long has it been since you last smoked??> 10 years ?Additional Findings: Tobacco Non-User?Ex-cigarette smoker ???He was born and raised in [facility]. 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 His father was a box worker. * Medications:?TakingVentolin HFA 108 (90 Base) MCG/ACT Aerosol Solution INHALE 2 PUFFS INTO THE LUNGS EVERY 6 HOURS Roflumilast 500 MCG Tablet 1 tablet Orally Once a dayMontelukast Sodium 10 MG Tablet TAKE 1 TABLET BY MOUTH AT BEDTIME Diagnosis Unavailable Oral Omeprazole 20 MG Capsule Delayed Release 1 capsule 30 minutes before morning meal Orally Once a dayMedication List reviewed and reconciled with the patientTaking Ventolin HFA 108 (90 Base) MCG/ACT Aerosol Solution INHALE 2 PUFFS INTO THE LUNGS EVERY 6 HOURS Taking Roflumilast 500 MCG Tablet 1 tablet Orally Once a dayTaking Montelukast Sodium 10 MG Tablet TAKE 1 TABLET BY MOUTH AT BEDTIME Diagnosis Unavailable Oral Taking Omeprazole 20 MG Capsule Delayed Release 1 capsule 30 minutes before morning meal Orally Once a dayMedication List reviewed and reconciled with the patient * Allergies:?No Known Drug All ergyno[Allergies Verified] Objective: * Vitals:?Ht: 74, Wt:243, BMI: 31.2, BP:139/67, HR:99, Wt-k.22. * ???Past Orders: Lab:Complete Blood Count Aut o Diff * Order Date 02/01/2024 07/27/2023 02/02/2023 White Blood Count 10.4 (Ref Range: 4.8-10.8 X10*3/uL) 9.5 (Ref Range: 4.8-10.8 X10*3/uL) 9.7 (Ref Range: 4.8-10.8 X10*3/uL) Red Blood Count 5.08 (Ref Range: 4.60-5.80 X10*6/uL) 5.13 (Ref Range: 4.60-5.80 X10*6/uL) 5.09 (Ref Range: 4.60-5.80 X10*6/uL) Hemoglobin 15.8 (Ref Range: 14.0-18.0 g/dl) 15.6 (Ref Range: 14.0-18.0 g/dl) 15.6 (Ref Range: 14.0-18.0 g/dl) Hematocrit 47.3 (Ref Range: 42.0-52.0 %) 47.2 (Ref Range: 42.0-52.0 %) 47.3 (Ref Range: 42.0-52.0 %) Mean Corpuscular Volume 93.1 (Ref Range: 80.0-98.0 fL) 92.0 (Ref Range: 80.0-98.0 fL) 92.9 (Ref Range: 80.0-98.0 fL) Mean Corpuscular Hemoglobin 31.1 (Ref Range: 27.0-33.0 pg) 30.4 (Ref Range: 27.0-33.0 pg) 30.6 (Ref Range: 27.0-33.0 pg) Mean Corpuscular HGB Conc 33.4 (Ref Range: 31.0-36.0 g/dl) 33.1 (Ref Range: 31.0-36.0 g/dl) 33.0 (Ref Range: 31.0-36.0 g/dl) Red Cell Distribution Width 13.5 (Ref Range: 11.0-16.0 %) 13.2 (Ref Range: 11.0-16.0 %) 13.3 (Ref Range: 11.0-16.0 %) Platelet Count 308 (Ref Range: 160-400 X10*3/uL) 313 (Ref Range: 160-400 X10*3/uL) 330 (Ref Range: 160-400 X10*3/uL) Mean Platelet Volume 9.0?L (Ref Range: 9.4-12.4 fL) 9.1?L (Ref Range: 9.4-12.4 fL) 9.6 (Ref Range: 9.4-12.4 fL) Neutrophils Percent Auto 71.7 (Ref Range: 45-73 %) 69.5 (Ref Range: 45-73 %) 68.2 (Ref Range: 45-73 %) Imm Gran Pct Auto 0.4 (Ref Range: 0.0-0.4 %) 0.3 (Ref Range: 0.0-0.4 %) 0.3 (Ref Range: 0.0-0.4 %) Lymphocytes Percent Auto 14.3?L (Ref Range: 20-40 %) 15.2?L (Ref Range: 20-40 %) 17.0?L (Ref Range: 20-40 %) Monocytes Percent Auto 11.0 (Ref Range: 2-11 %) 12.2?H (Ref Range: 2-11 %) 12.2?H (Ref Range: 2-11 %) Eosinophils Percent Auto 1.8 (Ref Range: 0-4 %) 2.0 (Ref Range: 0-4 %) 1.5 (Ref Range: 0-4 %) Basophils Percent Auto 0.8 (Ref Range: 0-2 %) 0.8 (Ref Range: 0-2 %) 0.8 (Ref Range: 0-2 %) NRBC Pct Auto 0.0 (Ref Range: 0.0-0.2 /100WBC) 0.0 (Ref Range: 0.0-0.2 /100WBC) 0.0 (Ref Range: 0.0-0.2 /100WBC) Neutrophils Absolute Auto 7.4 (Ref Range: 2.0-8.3 x10*3/uL) 6.6 (Ref Range: 2.0-8.3 x10*3/uL) 6.6 (Ref Range: 2.0-8.3 x10*3/uL) Imm Gran Abs Auto 0.04?H (Ref Range: 0.00-0.03 X10*3/uL) 0.03 (Ref Range: 0.00-0.03 X10*3/uL) 0.03 (Ref Range: 0.00-0.03 X10*3/uL) Lymphocytes Absolute Auto 1.5 (Ref Range: 1.2-4.9 X10*3/uL) 1.5 (Ref Range: 1.2-4.9 X10*3/uL) 1.6 (Ref Range: 1.2-4.9 X10*3/uL) Monocytes Absolute Auto 1.1 (Ref Range: 0.1-1.2 X10*3/uL) 1.2 (Ref Range: 0.1-1.2 X10*3/uL) 1.2 (Ref Range: 0.1-1.2 X10*3/uL) Eosinophils Absolute Auto 0.2 (Ref Range: 0.0-0.4 X10*3/uL) 0.2 (Ref Range: 0.0-0.4 X10*3/uL) 0.1 (Ref Range: 0.0-0.4 X10*3/uL) Basophils Absolute Auto 0.1 (Ref Range: 0.0-0.2 X10*3/uL) 0.1 (Ref Range: 0.0-0.2 X10*3/uL) 0.1 (Ref Range: 0.0-0.2 X10*3/uL) NRBC Abs Auto 0.000 (Ref Range: 0.0-0.012 X10*3/uL) 0.000 (Ref Range: 0.0-0.012 X10*3/uL) 0.000 (Ref Range: 0.0-0.012 X10*3/uL) * Lab:Prostate Specific Antige n * Order Date 02/01/2024 02/02/2023 06/16/2022 Prostate Specific Antigen 3.48 (Ref Range: <0.05-4.0 ng/mL) 5.04?H (Ref Range: <0.05-4.0 ng/mL) 3.97 (Ref Range: <0.05-4.0 ng/mL) * Lab:Lipid Panel * Order Date 02/01/2024 07/27/2023 02/02/2023 Triglycerides 205?H (Ref Range: <150 mg/dL) 141 (Ref Range: <150 mg/dL) 175 (Ref Range: mg/dL) Cholesterol 210?H (Ref Range: <200 mg/dL) 212?H (Ref Range: <200 mg/dL) 207 (Ref Range: mg/dL) LDL Cholesterol Calculated 126?H (Ref Range: <100 mg/dL) 142?H (Ref Range: <100 mg/dL) 131 (Ref Range: mg/dl) HDL Cholesterol 43 (Ref Range: >40 mg/dL) 42 (Ref Range: >40 mg/dL) 41 (Ref Range: mg/dL) * Lab:Comprehensive Sims. Pane l Fast * Order Date 02/01/2024 07/27/2023 02/02/2023 Sodium 139 (Ref Range: 135-145 mmol/L) 139 (Ref Range: 135-145 mmol/L) 138 (Ref Range: 135-145 mmol/L) Bilirubin Total 0.5 (Ref Range: 0.0-1.0 mg/dL) 0.4 (Ref Range: 0.0-1.0 mg/dL) 0.8 (Ref Range: 0.0-1.0 mg/dL) Aspartate Amino Transferase 31 (Ref Range: 5-37 U/L) 26 (Ref Range: 5-37 U/L) 27 (Ref Range: 5-37 U/L) Alanine Aminotransferase 40 (Ref Range: 0-40 U/L) 34 (Ref Range: 0-40 U/L) 43?H (Ref Range: 0-40 U/L) Total Protein 7.5 (Ref Range: 6.5-8.0 g/dL) 7.8 (Ref Range: 6.5-8.0 g/dL) 7.3 (Ref Range: 6.5-8.0 g/dL) Albumin Level 4.3 (Ref Range: 3.5-5.0 g/dL) 4.4 (Ref Range: 3.5-5.0 g/dL) 4.3 (Ref Range: 3.5-5.0 g/dL) Alkaline Phosphatase 96 (Ref Range: 39-117 U/L) 98 (Ref Range: 39-117 U/L) 102 (Ref Range: 39-117 U/L) Potassium 5.5?H (Ref Range: 3.3-5.1 mmol/L) 5.1 (Ref Range: 3.3-5.1 mmol/L) 5.0 (Ref Range: 3.3-5.1 mmol/L) Chloride 108 (Ref Range: 96-108 mmol/L) 107 (Ref Range: 96-108 mmol/L) 104 (Ref Range: 96-108 mmol/L) Carbon Dioxide 23 (Ref Range: 22-29 mmol/L) 26 (Ref Range: 22-29 mmol/L) 25 (Ref Range: 22-29 mmol/L) Anion Gap 14 (Ref Range: 12-20) 11?L (Ref Range: 12-20) 14 (Ref Range: 12-20) Blood Urea Nitrogen 23?H (Ref Range: 9-16 mg/dL) 19?H (Ref Range: 9-16 mg/dL) 20?H (Ref Range: 9-16 mg/dL) Creatinine 1.20 (Ref Range: 0.5-1.4 mg/dL) 1.20 (Ref Range: 0.5-1.4 mg/dL) 1.31 (Ref Range: 0.5-1.4 mg/dL) Estimated Glomerular Filt Rate 59 59 53 Glucose Fasting 104?H (Ref Range: 60-99 mg/dL) 110?H (Ref Range: 60-99 mg/dL) 96 (Ref Range: 60-99 mg/dL) Calcium 9.7 (Ref Range: 8.4-10.2 mg/dL) 9.9 (Ref Range: 8.4-10.2 mg/dL) 10.5?H (Ref Range: 8.4-10.2 mg/dL) * Examination: ???General Examination: ?GENERAL APPEARANCE:?pleasant, well nourished, well developed, in no acute distress, calm and relaxed , obese , man.?HEAD:?atraumatic, normocephalic.?EYES:?eomi, perrla, anicteric, conjugate.?EARS:?normal.?NOSE:?septum intact.?ORAL CAVITY:?normal, unremarkable.?NECK/THYROID:?no jugular venous distention, no carotid bruit, thyroid normal.?LYMPH NODES:?no enlarged lymph nodes,spleen normal.?SKIN:?no suspicious lesions, anicteric.?HEART:?no clicks, gallops, murmurs, or rubs, regular rhythm, S1, S2 normal, no s3, or vascular bruits.?LUNGS:?, diminished breath sounds throughout , no wheezes, rales, rhonchi , good air movement.?BREASTS:??no masses palpable bilaterally.?ABDOMEN:?bowel sounds normal, no ascites, no organomegaly, no mass , centripital obesity.?RECTAL EXAM:?not examined.?MUSCULOSKELETAL:?extremities unremarkable, no clubbing, cyanosis or edema.?PERIPHERAL PULSES:?normal.?NEUROLOGIC:?alert and oriented, cranial nerves 2-12 grossly intact, deep tendon reflexes 2+ symmetrical, motor strength normal upper and lower extremities, sensory exam intact.?PSYCH:?alert, oriented.? Assessment: * Assessment: 1.?Benign prostatic hypertro phy - N40.0, He rises from sleep once a night to urinate. We discussed lifestyle modification as a way to reduce nocturia.?2.?Obesity (BMI 30.0-34.9) - E66.9, His body mass index is 31 with 243 pounds. We have reviewed his weight loss strategy. We have discussed diet and nutrition. I recommended he lose weight at a rate of one half up of a pound to a diet restricted in fat calories and sodium combined with regular exercise.?3.?Gastroesophageal reflux disease without esophagitis - K21.9, His symptoms are well-controlled with current regimen. No change was necessary today.?4.?Chronic obstructive pulmonary disease, unspecified COPD type - J44.9, He will continue to see the shirt ironer regularly. The 6 mm pulmonary nodule will be followed carefully. He will refrain from smoking. He will exercise regularly. He will continue to use his nebulizer and his new inhaler.?5.?Former smoker - Z87.891, He is highly motivated not to smoke. We discussed a plan to prevent relapse in times of stress and illness.? Plan: * Treatment: 2.?Obesity (BMI 30.0-34.9)?LAB: PROFILE, RANDOM (COMPREHENSIVE METABOLIC) ?LAB: PSA, TOTAL ?LAB: CBC WITH AUTO DIFF 3.?Others? Continue Ventolin HFA Aerosol Solution, 108 (90 Base) MCG/ACT, INHALE 2 PUFFS INTO THE LUNGS EVERY 6 HOURS;?Continue Roflumilast Tablet, 500 MCG, 1 tablet, Orally, Once a day;?Continue Montelukast Sodium Tablet, 10 MG, TAKE 1 TABLET BY MOUTH AT BEDTIME Diagnosis Unavailable, Oral;?Continue Omeprazole Capsule Delayed Release, 20 MG, 1 capsule 30 minutes before morning meal, Orally, Once a day.?? * Procedure Codes:? * Preventive Medicine:? ??Counseling:?Care goal follow-up plan:?Counseling for abnormal BMI given?Yes ?Above Normal BMI Follow-up?Dietary management education, guidance, and counseling, Dietary needs education, Exercise promotion: strength training, Exercise promotion: stretching, Feeding regime, Giving encouragement to exercise, Lifestyle education regarding diet, Nutrition / feeding management, Nutrition therapy, Prescribed activity/exercise education, Prescribed diet education, Prescribed dietary intake, Special diet education, Weight monitoring , Intervention, Order not done: Medical or Other reason not done ?Smoking/Tobacco Use?Patient counseled on the dangers of tobacco use and urged to quit.?02/29/2024 ??COPD Care Plan:?Patient Lifestyle Goals?Be able to be more active with friends and family, Reduce number of ED and hospitalizations, Relieve symptoms and improve quality of life.?Treatment Goals?Quit Smoking, Exercise to help whole body, including lungs, Eat a nutritious diet and increase water consumption to 6-8 glasses a day.?Barriers?no barriers.?Self-Managment Goals?Get an air purifier for the rooms you are in the most, Eat a healthy diet, Exercise at least 3xs per week for at least 30 mins.? * Follow Up:?3 Months (Reason: OV) * Images: * Sign off status: Completed true * Provider:?Thaddeus Oreilly MD Date:?01/04 Generated for Hayden wiley/Shawn/Brice on:?08/15/2024 09:26 AM EST History and Physical Notes * HPI (History of Present Illness) Category Sub-Category Detail Notes COVID-19 Screening Questions Have you expe rienced fever, chills, cough, sore throat, shortness of breath, difficulty breathing, muscle aches, loss of taste or smell?: No Have you been exposed to the virus withi n the last 10 days?: No Have you travelled internationally in [facility] last 10 days?: No Have you been exposed to COVID-19 in the past?: No Examination Category Sub-Category Detail Notes General Examination GENERAL APPEARANCE: pleasant , well nourished, well developed, in no acute distress, calm and relaxed , obese , man HEAD: atraumatic, normocep halic EYES: eomi, perrla, anicte dinorah, conjugate EARS: normal NOSE: septum intact NECK/THYROID: no jugular venous di stention, no carotid bruit, thyroid normal HEART: no clicks, gallops, murmurs, or rubs, regular rhythm, S1, S2 normal, no s3, or vascular bruits LUNGS: , diminished breath sounds throughout , no wheezes, rales, rhonchi , good air movement ABDOMEN: bowel sounds normal, no ascites, no organomegaly, no mass , centripital obesity NEUROLOGIC: alert and oriented, cranial nerves 2-12 grossly intact, deep tendon reflexes 2+ symmetrical, motor strength normal upper and lower extremities, sensory exam intact SKIN: no suspicious lesion s, anicteric PERIPHERAL PULSES: normal BREASTS: no masses palpable b ilaterally MUSCULOSKELETAL: extremities unremark able, no clubbing, cyanosis or edema LYMPH NODES: no enlarged lymph no niecy,spleen normal RECTAL EXAM: not examined PSYCH: alert, oriented ORAL CAVITY: normal, unremarkable
--- OUTSIDE RECORDS SUMMARY | 2024-08-15 09:26 | XMS_ITS ---
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 Name Role Phone Thaddeus Oreilly Primary Care Provider [phone] Allergies Allergen (clinical drug ingredient) Drug/Non Drug Allergy documented on EMR Reaction Allergy Type Onset Date Status No Known Drug Allergy Unknown Drug Allergy Active REASON FOR VISIT Gerd, COPD, Benign prostatic hypertrophy, Obesity Medications Medication SIG (Take, Route, Frequency, Duration) Notes Start Date End Date Status Roflumilast 500 MCG 1 tablet Orally Once a day Active Montelukast Sodium 10 MG TAKE 1 TABLET B Y MOUTH AT BEDTIME Diagnosis Unavailable Oral Active Omeprazole 20 MG 1 capsule 30 minutes before morning meal Orally Once a day Active Ventolin HFA 108 (90 Base) MCG/ACT INHALE 2 PUFFS INTO THE LUNGS EVERY 6 HOURS Active Social History Tobacco Use: Social History [...] Tobacco Non-User Ex-cigaret te smoker Vital Signs Temperature 97.9 degrees Fahrenheit 05/14/20 24 Blood pressure systolic 130 mm Hg 05/14/20 24 Blood pressure diastolic 64 mm Hg 024 Heart Rate 90 /min 05/14/2024 Height 74 in 05/14/2024 Weight 235 lbs 05/14/2024 BMI 30.17 kg/m2 05/14/2024 Encounters Encounter Location Date Provider Diagnosis Thaddeus Oreilly III, MD [address] [place] [address] [place] [id number] 05/14/2024 Thaddeus Oreilly Gastroesophageal ref lux disease without esophagitis K21.9 ; Chronic obstructive pulmonary disease, unspecified COPD type J44.9 ; Former smoker Z87.891 ; Pulmonary nodule less than 6 mm determined by computed tomography of lung R91.1 and Benign prostatic hypertrophy N40.0 Assessments Encounter Date Diagnosis (ICD Code) Assessment Notes Treat ment Notes Treatment Clinical Notes 05/14/2024 Gastroesophageal reflux disease without esophagitis (ICD-10 - K21.9) His symptoms are well-controlled with current regimen. No change was necessary today. 05/14/2024 Chronic obstructive pulmonary disease, unspecified COPD type (ICD-10 - J44.9) He will continue to see the exhibition organiser regularly. The 6 mm pulmonary nodule will be followed carefully. He will refrain from smoking. He will exercise regularly. He will continue to use his nebulizer and his new inhaler. 05/14/2024 Former smoker (ICD-1 0 - Z87.891) He is highly motivated not to smoke. We discussed a plan to prevent relapse in times of stress and illness. 05/14/2024 Pulmonary nodule les s than 6 mm determined by computed tomography of lung (ICD-10 - R91.1) The 6 mm left lower lobe nodule is stable on a CT scan done in January of this year. He will have an annual CT scan. 05/14/2024 Benign prostatic hypertrophy (ICD-10 - N40.0) He rises from sleep once a night to urinate. We discussed lifestyle modification as a way to reduce nocturia. Plan Of Treatment Medication Medication Name Sig Start Date Stop Date Notes Roflumilast 500 MCG 1 tablet Orally Once a day Montelukast Sodium 10 MG TAKE 1 TABLET B Y MOUTH AT BEDTIME Diagnosis Unavailable Oral Omeprazole 20 MG 1 capsule 30 minutes before morning meal Orally Once a day Ventolin HFA 108 (90 Base) MCG/ACT INHALE 2 PUFFS INTO THE LUNGS EVERY 6 HOURS Next Appt Details Follow Up: 3 Months, Reason: ov no tests Provider Name:Thaddeus Oreilly, 11/05/2024 03:00:00 PM, [address] [place] [address] DARLIN CARVER, [place], [phone], Progress Notes * REGAN WOODS:1950 (73 yo M)Acc No.[id number]:05/14/2024 Progress Notes Patient:?CURT WOODS Provider:?Thaddeus Oreilly MD :1950???Age:73 Y???Sex:Male Thomas e:05/14/2024 Address:[address] [place], [place] [id number] Subjective: * Chief Complaints: * ???GerdCOPDBenign prostatic hypertrophyObesity * HPI: ???COVID-19 Screening:? He returns to the office for medical management. He is going to have a colonoscopy next June. This will be done by GI at [facility]. He has lost 8 pounds. He admits to nocturia once a night. We have discussed lifestyle modification as a way to reduce nocturia. He is taking no new medications. ?Questions?Have you experienced fever, chills, cough, sore throat, shortness of breath, difficulty breathing, muscle aches, loss of taste or smell??No ?Have you been exposed to the virus within the last 10 days??No ?Have you travelled internationally in the last 10 days??No ?Have you been exposed to COVID-19 in the past??No * ROS:?General/Constitutional:?pain?only normal aches and pains.?Chills?denies.?Fatigue?admits.?Fever?denies.?ENT:?Decreased hearing?mild.?Respiratory:?Cough?denies.?Cardiovascular:?Chest pain with exertion?denies.?Dyspnea on exertion?denies.?Shortness of breath?denies.?Gastrointestinal:?Constipation?occasional.?Decreased appetite?denies.?Diarrhea?denies.?Heartburn?denies.?Nausea?denies.?Rectal bleeding?denies.?Vomiting?denies.?Hematology:?bruising?denies.?petechiae?denies.?Swollen glands?none have been noted.?Genitourinary:?Frequent urination?twice a night.?Musculoskeletal:?Muscle aches?denies.?Painful joints?denies.?Sciatica?denies.?Weakness?denies.?Skin:?Itching?denies.?Rash?denies.?Skin lesion(s)?denies.?Neurologic:?Difficulty speaking?denies.?Dizziness?denies.?Headache?denies.?Low back [...] smoker ???He was born and raised in [facility]. 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 His father was a motor equipment sergeant. * Medications:?TakingVentolin HFA 108 (90 Base) MCG/ACT [...] All ergyno[Allergies Verified] Objective: * Vitals:?Ht: 74, Wt:235, BMI: 30.17, BP:130/64, HR:90, Temp:97.9, Wt-k.59. * Examination: ???General Examination: ?GENERAL APPEARANCE:?pleasant, well nourished, well developed, in no acute distress, calm and relaxed , obese , man.?HEAD:?atraumatic, normocephalic.?EYES:?eomi, perrla, anicteric, conjugate.?EARS:?normal.?NOSE:?septum intact.?ORAL CAVITY:?normal, unremarkable.?NECK/THYROID:?no jugular venous distention, no carotid bruit, thyroid normal.?LYMPH NODES:?no enlarged lymph nodes,spleen normal.?SKIN:?no suspicious lesions, anicteric.?HEART:?no clicks, gallops, murmurs, or rubs, regular rhythm, S1, S2 normal, no s3, or vascular bruits.?LUNGS:?diminished breath sounds throughout , scattered inspiratory wheezes , good air movement.?BREASTS:??no masses palpable bilaterally.?ABDOMEN:?bowel sounds normal, no ascites, no organomegaly, no mass , centripital obesity.?RECTAL EXAM:?not examined.?MUSCULOSKELETAL:?extremities unremarkable, no clubbing, cyanosis or edema.?PERIPHERAL PULSES:?normal.?NEUROLOGIC:?alert and oriented, cranial nerves 2-12 grossly intact, deep tendon reflexes 2+ symmetrical, motor strength normal upper and lower extremities, sensory exam intact.?PSYCH:?alert, oriented.? Assessment: * Assessment: 1.?Gastroesophageal reflux d isease without esophagitis - K21.9 (Primary), His symptoms are well-controlled with current regimen. No change was necessary today.?2.?Chronic obstructive pulmonary disease, unspecified COPD type - J44.9, He will continue to see the exhibition organiser regularly. The 6 mm pulmonary nodule will be followed carefully. He will refrain from smoking. He will exercise regularly. He will continue to use his nebulizer and his new inhaler.?3.?Former smoker - Z87.891, He is highly motivated not to smoke. We discussed a plan to prevent relapse in times of stress and illness.?4.?Pulmonary nodule less than 6 mm determined by computed tomography of lung - R91.1, The 6 mm left lower lobe nodule is stable on a CT scan done in January of this year. He will have an annual CT scan.?5.?Benign prostatic hypertrophy - N40.0, He rises from sleep once a night to urinate. We discussed lifestyle modification as a way to reduce nocturia.? Plan: * Treatment: * Procedure Codes:? * Preventive Medicine:? ??Counseling:?Care [...] dangers of tobacco use and urged to quit.?05/14/2024 * Follow Up:?3 Months (Reason: ov no tests ) * Images: * Sign off status: Completed true * Provider:?Thaddeus Oreilly MD Date:?05/2024 Generated for Hayden wiley/Shawn/eTransmitting on:?08/15/2024 09:26 AM EST History and Physical Notes * HPI (History of Present Illness) Category Sub-Category Detail Notes COVID-19 Screening Questions Have you expe rienced fever, chills, cough, sore throat, shortness of breath, difficulty breathing, muscle aches, loss of taste or smell?: No Have you been exposed to the virus withi n the last 10 days?: No Have you travelled internationally in [facility] last 10 days?: No Have you been [...] normal, no s3, or vascular bruits LUNGS: diminished breath so unds throughout , scattered inspiratory wheezes , good air movement ABDOMEN: bowel sounds [...]
--- OUTSIDE RECORDS SUMMARY | 2024-08-15 09:26 | XMS_ITS ---
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 Name Role Phone Thaddeus Oreilly Primary Care Provider Allergies Allergen (clinical drug ingredient) Drug/Non Drug Allergy documented on EMR Reaction Allergy Type Onset Date Status No Known Drug Allergy Unknown Drug Allergy Active REASON FOR VISIT GERD, COPD, Benign prostatic hypertrophy Medications Medication SIG (Take, Route, Frequency, Duration) Notes Start Date End Date Status Ventolin HFA 108 (90 Base) MCG/ACT INHALE 2 PUFFS INTO THE LUNGS EVERY 6 HOURS Active Omeprazole 20 MG TAKE 1 CAPSULE BY [facility] EVERY DAY 30 MINUTES BEFORE BREAKFAST Active Roflumilast 500 MCG 1 tablet Orally [...] Non-User Ex-cigaret te smoker Vital Signs Temperature 97.7 degrees Fahrenheit 08/13/20 24 Blood pressure systolic 132 mm Hg 08/13/20 24 Blood pressure diastolic 84 mm Hg 024 Heart Rate 95 /min 08/13/2024 Height 74 in 08/13/2024 Weight 233 lbs 08/13/2024 BMI 29.91 kg/m2 08/13/2024 Encounters Encounter Location Date Provider Diagnosis Thaddeus Oreilly III, MD [address] [place] [address] DR RIVERA, JONATHAN [id number] 08/13/2024 Thaddeus Oreilly Benign prostatic hypertrophy N40.0 ; Chronic obstructive pulmonary disease, unspecified COPD type J44.9 ; Former smoker Z87.891 ; Gastroesophageal reflux disease without esophagitis K21.9 and Overweight (BMI 25.0-29.9) E66.3 Assessments Encounter Date Diagnosis (ICD Code) Assessment Notes Treat ment Notes Treatment Clinical Notes 08/13/2024 Benign prostatic hypertrophy (ICD-10 - N40.0) He has been rising from sleep once a night to urinate. We discussed lifestyle modifications he could make to reduce this nocturia. 08/13/2024 Chronic obstructive pulmonary disease, unspecified COPD type (ICD-10 - J44.9) He will continue to see the cloud services architect regularly. The 6 mm pulmonary nodule will be followed carefully. He will refrain from smoking. He will exercise regularly. He will continue to use his nebulizer and his new inhaler. 08/13/2024 Former smoker (ICD-1 0 - Z87.891) He is highly motivated not to smoke. We discussed a plan to prevent relapse in times of stress and illness. 08/13/2024 Gastroesophageal reflux disease without esophagitis (ICD-10 - K21.9) His symptoms are well-controlled with current regimen. No change was necessary today. 08/13/2024 Overweight (BMI 25.0-29.9) (ICD-10 - E66.3) He has lost 2 pounds and is now overweight with a body mass index of 29. We discussed his weight loss strategy and I reinforced continued weight loss through diet restricted in fat calories and sodium. Plan Of Treatment Medication Medication Name Sig Start Date Stop Date Notes Ventolin HFA 108 (90 Base) MCG/ACT INHALE 2 PUFFS INTO THE LUNGS EVERY 6 HOURS Omeprazole 20 MG TAKE 1 CAPSULE BY [facility] EVERY DAY 30 MINUTES BEFORE BREAKFAST Roflumilast 500 MCG 1 tablet Orally Once a day Montelukast Sodium 10 MG TAKE 1 TABLET B Y MOUTH AT BEDTIME Diagnosis Unavailable Oral Pending Test Test Name Order Date PROFILE, FASTING (COMPREHENSIVE METABOLI C) 08/13/2024 PSA, TOTAL 08/13/2024 CBC WITH AUTO DIFF 08/13/2024 Lipid Panel 08/13/2024 Next Appt Details Follow Up: As Scheduled, [facility] visit on November 05, Reason: OV, Annual Checkup Provider Name:Thaddeus Oreilly, 11/05/2024 03:00:00 PM, [address] [place] [address] DARLIN CARVER, [place], [id number], Progress Notes * CURT WOODSDOB:1950 (73 yo M)Acc No.[id number]:08/13/2024 Progress Notes Patient:?CURT WOODS Provider:?Thaddeus Oreilly MD :1950???Age:73 Y???Sex:Male Thomas e:08/13/2024 Address:[address] [place] [address] RAMUHelen ESTELALukas [id number] Subjective: * Chief Complaints: * ???GERDCOPDBenign prostatic hypertrophy * HPI: ???COVID-19 Screening:?Questions?Have you experienced fever, chills, cough, sore throat, shortness of breath, difficulty breathing, muscle aches, loss of taste or smell??No ?Have you been exposed to the virus within the last 10 days??No ?Have you travelled internationally in the last 10 days??No ?Have you been exposed to COVID-19 in the past??No ???:? The patient, a 73-year-old male, reported having a colonoscopy about a week ago, during which a couple of polyps were found. He also mentioned experiencing occasional wheezing. He reported having a flu shot about a month ago and still having a little sore on his shoulder. He also mentioned having a postnasal drip. The patient reported losing a few pounds recently. Blood Sugar Level is 104. * ROS:?General/Constitutional:?pain?only normal aches and pains.?Chills?denies.?Fatigue?admits.?Fever?denies.?ENT:?Decreased hearing?mild.?Respiratory:?Cough?denies.?Cardiovascular:?Chest pain with exertion?denies.?Dyspnea on exertion?with mild activity.?Shortness of breath?with exertion.?Gastrointestinal:?Constipation?occasional.?Decreased appetite?denies.?Diarrhea?denies.?Heartburn?denies.?Nausea?denies.?Rectal bleeding?denies.?Vomiting?denies.?Hematology:?bruising?denies.?petechiae?denies.?Swollen glands?none have been noted.?Genitourinary:?Frequent urination?once a night.?Musculoskeletal:?Muscle aches?denies.?Painful joints?denies.?Sciatica?denies.?Weakness?denies.?Skin:?Itching?denies.?Rash?denies.?Skin lesion(s)?denies.?Neurologic:?Difficulty speaking?denies.?Dizziness?denies.?Headache?denies.?Low back pain?denies.?Psychiatric:?Depressed mood?denies.?Cancer Self-Management:?Admits?Colonoscopy.? * Medical History:? * Surgical History:?appendecto my age 7No history * Hospitalization/Major Diagno stic Procedure:?No history * Family History:?Father: dece ased 60 yrs, [...] smoker ???He was born and raised in [facility]. 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 * Medications:?TakingVentolin HFA 108 (90 Base) MCG/ACT Aerosol Solution INHALE 2 PUFFS INTO THE LUNGS EVERY 6 HOURS Roflumilast 500 MCG Tablet 1 tablet Orally Once a day Montelukast Sodium 10 MG Tablet TAKE 1 TABLET BY MOUTH AT BEDTIME Diagnosis Unavailable Oral Omeprazole 20 MG Capsule Delayed Release TAKE 1 CAPSULE BY MOUTH EVERY DAY 30 MINUTES BEFORE BREAKFAST Medication List reviewed and reconciled with the patientTaking Ventolin HFA 108 (90 Base) MCG/ACT Aerosol Solution INHALE 2 PUFFS INTO THE LUNGS EVERY 6 HOURS Taking Roflumilast 500 MCG Tablet 1 tablet Orally Once a day Taking Montelukast Sodium 10 MG Tablet TAKE 1 TABLET BY MOUTH AT BEDTIME Diagnosis Unavailable Oral Taking Omeprazole 20 MG Capsule Delayed Release TAKE 1 CAPSULE BY MOUTH EVERY DAY 30 MINUTES BEFORE BREAKFAST Medication List reviewed and reconciled with the patient * Allergies:?No Known Drug All ergyno[Allergies Verified] Objective: * Vitals:?Ht: 74, Wt:233, BMI: 29.91, BP:132/84, HR:95, Temp:97.7, Wt-k.69. * ???Past Orders: Lab:Complete Blood Count Aut o Diff * Collection Date 08/10/2024 02/01/2024 07/27/2023 Collection Time 01:10 PM 12:57 PM 02:20 PM Order Date 08/10/2024 02/01/2024 07/27/2023 White Blood Count 9.6 (Ref Range: 4.8-10.8 X10*3/uL) 10.4 (Ref Range: 4.8-10.8 X10*3/uL) 9.5 (Ref Range: 4.8-10.8 X10*3/uL) Red Blood Count 5.02 (Ref Range: 4.60-5.80 X10*6/uL) 5.08 (Ref Range: 4.60-5.80 X10*6/uL) 5.13 (Ref Range: 4.60-5.80 X10*6/uL) Hemoglobin 15.3 (Ref Range: 14.0-18.0 g/dl) 15.8 (Ref Range: 14.0-18.0 g/dl) 15.6 (Ref Range: 14.0-18.0 g/dl) Hematocrit 46.2 (Ref Range: 42.0-52.0 %) 47.3 (Ref Range: 42.0-52.0 %) 47.2 (Ref Range: 42.0-52.0 %) Mean Corpuscular Volume 92.0 (Ref Range: 80.0-98.0 fL) 93.1 (Ref Range: 80.0-98.0 fL) 92.0 (Ref Range: 80.0-98.0 fL) Mean Corpuscular Hemoglobin 30.5 (Ref Range: 27.0-33.0 pg) 31.1 (Ref Range: 27.0-33.0 pg) 30.4 (Ref Range: 27.0-33.0 pg) Mean Corpuscular HGB Conc 33.1 (Ref Range: 31.0-36.0 g/dl) 33.4 (Ref Range: 31.0-36.0 g/dl) 33.1 (Ref Range: 31.0-36.0 g/dl) Red Cell Distribution Width 13.5 (Ref Range: 11.0-16.0 %) 13.5 (Ref Range: 11.0-16.0 %) 13.2 (Ref Range: 11.0-16.0 %) Platelet Count 298 (Ref Range: 160-400 X10*3/uL) 308 (Ref Range: 160-400 X10*3/uL) 313 (Ref Range: 160-400 X10*3/uL) Mean Platelet Volume 9.4 (Ref Range: 9.4-12.4 fL) 9.0?L (Ref Range: 9.4-12.4 fL) 9.1?L (Ref Range: 9.4-12.4 fL) Neutrophils Percent Auto 72.2 (Ref Range: 45-73 %) 71.7 (Ref Range: 45-73 %) 69.5 (Ref Range: 45-73 %) Imm Gran Pct Auto 0.3 (Ref Range: 0.0-0.4 %) 0.4 (Ref Range: 0.0-0.4 %) 0.3 (Ref Range: 0.0-0.4 %) Lymphocytes Percent Auto 15.7?L (Ref Range: 20-40 %) 14.3?L (Ref Range: 20-40 %) 15.2?L (Ref Range: 20-40 %) Monocytes Percent Auto 10.4 (Ref Range: 2-11 %) 11.0 (Ref Range: 2-11 %) 12.2?H (Ref Range: 2-11 %) Eosinophils Percent Auto 0.6 (Ref Range: 0-4 %) 1.8 (Ref Range: 0-4 %) 2.0 (Ref Range: 0-4 %) Basophils Percent Auto 0.8 (Ref Range: 0-2 %) 0.8 (Ref Range: 0-2 %) 0.8 (Ref Range: 0-2 %) NRBC Pct Auto 0.0 (Ref Range: 0.0-0.2 /100WBC) 0.0 (Ref Range: 0.0-0.2 /100WBC) 0.0 (Ref Range: 0.0-0.2 /100WBC) Neutrophils Absolute Auto 6.9 (Ref Range: 2.0-8.3 x10*3/uL) 7.4 (Ref Range: 2.0-8.3 x10*3/uL) 6.6 (Ref Range: 2.0-8.3 x10*3/uL) Imm Gran Abs Auto 0.03 (Ref Range: 0.00-0.03 X10*3/uL) 0.04?H (Ref Range: 0.00-0.03 X10*3/uL) 0.03 (Ref Range: 0.00-0.03 X10*3/uL) Lymphocytes Absolute Auto 1.5 (Ref Range: 1.2-4.9 X10*3/uL) 1.5 (Ref Range: 1.2-4.9 X10*3/uL) 1.5 (Ref Range: 1.2-4.9 X10*3/uL) Monocytes Absolute Auto 1.0 (Ref Range: 0.1-1.2 X10*3/uL) 1.1 (Ref Range: 0.1-1.2 X10*3/uL) 1.2 (Ref Range: 0.1-1.2 X10*3/uL) Eosinophils Absolute Auto 0.1 (Ref Range: 0.0-0.4 X10*3/uL) 0.2 (Ref Range: 0.0-0.4 X10*3/uL) 0.2 (Ref Range: 0.0-0.4 X10*3/uL) Basophils Absolute Auto 0.1 (Ref Range: 0.0-0.2 X10*3/uL) 0.1 (Ref Range: 0.0-0.2 X10*3/uL) 0.1 (Ref Range: 0.0-0.2 X10*3/uL) NRBC Abs Auto 0.000 (Ref Range: 0.0-0.012 X10*3/uL) 0.000 (Ref Range: 0.0-0.012 X10*3/uL) 0.000 (Ref Range: 0.0-0.012 X10*3/uL) * Lab:Prostate Specific Antige n * Collection Date 08/10/2024 02/01/2024 02/02/2023 Collection Time 01:10 PM 12:57 PM 01:40 PM Order Date 08/10/2024 02/01/2024 02/02/2023 Prostate Specific Antigen 4.00 (Ref Range: <0.05-4.0 ng/mL) 3.48 (Ref Range: <0.05-4.0 ng/mL) 5.04?H (Ref Range: <0.05-4.0 ng/mL) ???Lab:Comprehensive Met. Panel (Order Date - 08/10/2024) (Collection Date & Time - 08/10/2024 01:10 PM)?ValueReference Range?[id number] - mmol/L?Bilirubin Total0.60.0-1.0 - mg/dL?Aspartate Amino Azqylbdrqle787-98 - U/L?Alanine Pnegmyowjmtampzw219-83 - U/L?Total Protein7.66.5-8.0 - g/dL?Albumin Level4.33.5-5.0 - g/dL?Alkaline Tshazgllutq8223-541 - U/L?Potassium5.03.3-5.1 - mmol/L?Pgjjgblo150 96-108 - mmol/L?Carbon Ylutacv7292-10 - mmol/L?Anion Fkq53S88-33 - ?Blood Urea Ubtpycrv15L3-79 - mg/dL?Creatinine1.150.5-1.4 - mg/dL ?Estimated Glomerular Filt Rate> 60-?Glucose Fuzhve06891-333 - mg/dL?Gnqvewz84.08.4-10.2 - mg/dL * Examination: ???General Examination: ?GENERAL APPEARANCE:?pleasant, well nourished, well developed, in no acute distress, calm and relaxed, overweight, man.?HEAD:?atraumatic, normocephalic.?EYES:?eomi, perrla, anicteric, conjugate.?EARS:?normal.?NOSE:?septum intact.?ORAL CAVITY:?normal, unremarkable.?NECK/THYROID:?no jugular venous distention, no carotid bruit, thyroid normal.?LYMPH NODES:?no enlarged lymph nodes,spleen normal.?SKIN:?no suspicious lesions, anicteric.?HEART:?no clicks, gallops, murmurs, or rubs, regular rhythm, S1, S2 normal, no s3, or vascular bruits.?LUNGS:?diminished breath sounds throughout, no wheezes, rales, rhonchi.?BREASTS:??no masses palpable bilaterally.?ABDOMEN:?bowel sounds normal, no ascites, no organomegaly, no mass, overweight.?RECTAL EXAM:?not examined.?MUSCULOSKELETAL:?extremities unremarkable, no clubbing, cyanosis or edema.?PERIPHERAL PULSES:?normal.?NEUROLOGIC:?alert and oriented, cranial nerves 2-12 grossly intact, deep tendon reflexes 2+ symmetrical, motor strength normal upper and lower extremities, sensory exam intact.?PSYCH:?alert, oriented.? Assessment: * Assessment: 1.?Chronic obstructive pulmo nary disease, unspecified COPD type - J44.9 (Primary)???Notes :He will continue to see the cloud services architect regularly. The 6 mm pulmonary nodule will be followed carefully. He will refrain from smoking. He will exercise regularly. He will continue to use his nebulizer and his new inhaler.???2.?Benign prostatic hypertrophy - N40.0???Notes :He has been rising from sleep once a night to urinate.? We discussed lifestyle modifications he could make to reduce this nocturia.???3.?Former smoker - Z87.891???Notes :He is highly motivated not to smoke. We discussed a plan to prevent relapse in times of stress and illness.???4.?Gastroesophageal reflux disease without esophagitis - K21.9???Notes :His symptoms are well-controlled with current regimen. No change was necessary today.???5.?Overweight (BMI 25.0-29.9) - E66.3???Notes :He has lost 2 pounds and is now overweight with a body mass index of 29. We discussed his weight loss strategy and I reinforced continued weight loss through diet restricted in fat calories and sodium.??? Plan: * Treatment: 2.?Others? Continue Omeprazole Capsule Delayed Release, 20 MG, TAKE 1 CAPSULE BY MOUTH EVERY DAY 30 MINUTES BEFORE BREAKFAST;?Continue Ventolin HFA Aerosol Solution, 108 (90 Base) MCG/ACT, INHALE 2 PUFFS INTO THE LUNGS EVERY 6 HOURS;?Continue Roflumilast Tablet, 500 MCG, 1 tablet, Orally, Once a day;?Continue Montelukast Sodium Tablet, 10 MG, TAKE 1 TABLET BY MOUTH AT BEDTIME Diagnosis Unavailable, Oral.?? * Procedure Codes:? * Preventive Medicine:? ??Counseling:?Care goal follow-up plan:?Counseling for abnormal BMI given?Yes ?Above Normal BMI Follow-up?Dietary management education, guidance, and counseling ??COPD Care Plan:?Patient Lifestyle Goals?Be able to be more active with friends and family, Reduce number of ED and hospitalizations, Relieve symptoms and improve quality of life.?Treatment Goals?Exercise to help whole body, including lungs, Eat a nutritious diet and increase water consumption to 6-8 glasses a day, Eat 4-5 small meals throughout the day.?Barriers?no barriers.?Self-Managment Goals?Eat a healthy diet, Get an air purifier for the rooms you are in the most.? * Follow Up:?As Scheduled, [facility] visit on November 05 (Reason: OV, Annual Checkup) * Images: * Sign off status: Completed true * Provider:?Thaddeus Oreilly MD Date:?05/2024 Generated for Kobii saurabh/Shawn/Deshawnitting on:?08/15/2024 09:26 AM EST History and Physical Notes * HPI (History of Present Illness) Category Sub-Category Detail Notes COVID-19 Screening Questions Have you expe rienced fever, chills, cough, sore throat, shortness of breath, difficulty breathing, muscle aches, loss of taste or smell?: No Have you been exposed to the virus withi n the last 10 days?: No Have you travelled internationally in e last 10 days?: No Have you been exposed to COVID-19 in the past?: No Examination Category Sub-Category Detail Notes General Examination GENERAL APPEARANCE: pleasant , well nourished, well developed, in no acute distress, calm and relaxed, overweight, man HEAD: atraumatic, normocep halic EYES: eomi, perrla, anicte dinorah, conjugate EARS: normal NOSE: septum intact NECK/THYROID: no jugular venous di stention, no carotid bruit, thyroid normal HEART: no clicks, gallops, murmurs, or rubs, regular rhythm, S1, S2 normal, no s3, or vascular bruits LUNGS: diminished breath so unds throughout, no wheezes, rales, rhonchi ABDOMEN: bowel sounds normal, no ascites, no organomegaly, no mass, overweight NEUROLOGIC: alert and oriented, cranial nerves 2-12 [...]
--- OUTSIDE RECORDS SUMMARY | 2024-08-15 09:27 | XMS_ITS | Patient Health Record ---
Author Organization Thaddeus Oreilly III, MD Address [address] [place] [address] Care Team Providers Care Military Logistics Specialist Name Role Phone Thaddeus Oreilly Primary Care Provider [phone] Allergies Allergen (clinical drug ingredient) Drug/Non Drug Allergy documented on EMR Reaction Allergy Type Onset Date Status No Known Drug Allergy Unknown Drug Allergy Active Results Component Value Reference Range Notes URINE DIP STICK Reviewed date:11/02/2023 04:20:39 PM Interpretation: Performing Lab: Notes/Report: SG 1.020 1.005 - 1.025 pH 6.0 5.0 - 9.0 JOE Negative Negative - NIT Negative Negative - PRO 15 Negative - Trace GLU Negative Negative - KET Negative Negative - UBG 0.2 0.1 - 1.8 PITO Negative 0.2 - 1.3 BLD Negative Negative - Complete Blood Count Auto Di ff Reviewed date:02/04/2024 08:30:51 AM Interpretation: Performing Lab:[facility], [address] [place] [phone] Notes/Report: White Blood Count 10.4 4.8-10.8 X10*3/uL Red Blood Count 5.08 4.60-5.80 X10*6/uL Hemoglobin 15.8 14.0-18.0 g/dl Hematocrit 47.3 42.0-52.0 % Mean Corpuscular Volume 93.1 80.0-98.0 fL Mean Corpuscular Hemoglobin 31.1 27.0-33.0 pg Mean Corpuscular HGB Conc 33.4 31.0-36.0 g/dl Red Cell Distribution Width 13.5 11.0-16.0 % Platelet Count 308 160-400 X10*3/uL Mean Platelet Volume 9.0 9.4-12.4 fL Neutrophils Percent Auto 71.7 45-73 % Imm Gran Pct Auto 0.4 0.0-0.4 % Lymphocytes Percent Auto 14.3 20-40 % Monocytes Percent Auto 11.0 2-11 % Eosinophils Percent Auto 1.8 0-4 % Basophils Percent Auto 0.8 0-2 % NRBC Pct Auto 0.0 0.0-0.2 /100WBC Neutrophils Absolute Auto 7.4 2.0-8.3 x10*3/u L Imm Gran Abs Auto 0.04 0.00-0.03 X10*3/uL Lymphocytes Absolute Auto 1.5 1.2-4.9 X10*3/u L Monocytes Absolute Auto 1.1 0.1-1.2 X10*3/uL Eosinophils Absolute Auto 0.2 0.0-0.4 X10*3/u L Basophils Absolute Auto 0.1 0.0-0.2 X10*3/uL NRBC Abs Auto 0.000 0.0-0.012 X10*3/uL Comprehensive [place]. Panel Fa st Reviewed date:02/04/2024 08:30:51 AM Interpretation: Performing Lab:[facility], [address] [place] [phone] Notes/Report: Sodium 139 135-145 mmol/L Potassium 5.5 3.3-5.1 mmol/L Chloride 108 96-108 mmol/L Carbon Dioxide 23 22-29 mmol/L Anion Gap 14 12-20 Blood Urea Nitrogen 23 9-16 mg/dL Creatinine 1.20 0.5-1.4 mg/dL Estimated Glomerular Filt Rate 59 NOTE: For -Dominican individuals, multiply the result by 1.210. Chronic Kidney Disease: Estimated GFR < 60 mL/min/1.73m2 Severe Kidney Disease: Estimated GFR < 15 mL/min/1.73m2 Glucose Fasting 104 60-99 mg/dL A fasting glucose from 100-125 mg/dl is considered impaired (pre-diabetes). Calcium 9.7 8.4-10.2 mg/dL Bilirubin Total 0.5 0.0-1.0 mg/dL Aspartate Amino Transferase 31 5-37 U/L Alanine Aminotransferase 40 0-40 U/L Total Protein 7.5 6.5-8.0 g/dL Albumin Level 4.3 3.5-5.0 g/dL Alkaline Phosphatase 96 39-117 U/L Lipid Panel Reviewed date:02/04/2024 08:30:51 AM Interpretation: Performing Lab:[address] [phone] Notes/Report: Triglycerides 205 <150 mg/dL Desirable Triglyceride: less than 150 mg/dL Borderline High Triglyceride 150-199 mg/dL High Triglyceride: 200-499 mg/dL Very High Triglyceride: greater than or equal to 5OO mg/dL Cholesterol 210 <200 mg/dL Desirable Cholesterol: less than 200 mg/dL Borderline High Cholesterol: 200-239 mg/dL High Cholesterol: greater than 239 mg/dL LDL Cholesterol Calculated 126 <100 mg/dL Desirable LDL: less than 100 mg/dL Near Optimal/Above Optimal LDL: 110-129 mg/dL Borderline High LDL: 130-159 mg/dL High LDL: 160-189 mg/dL Very High LDL: greater than or equal to 190 mg/dL HDL Cholesterol 43 >40 mg/dL Desirable HDL: greater than 40 mg/dL Note: This HDL assay may give artificially low results in patients with liver disease. Prostate Specific Antigen Reviewed date:02/04/2024 08:30:51 AM Interpretation: Performing Lab:[facility], [address] [place] [phone] Notes/Report: Prostate Specific Antigen 3.48 <0.05-4.0 ng/mL PSA methodology: [place] Alinity i Chemiluminescent Microparticle Immunoassay (CMIA) Complete Blood Count Auto Di ff Reviewed date:08/13/2024 04:55:29 AM Interpretation: Performing Lab:[address] [phone] Notes/Report: White Blood Count 9.6 4.8-10.8 X10*3/uL Red Blood Count 5.02 4.60-5.80 X10*6/uL Hemoglobin 15.3 14.0-18.0 g/dl Hematocrit 46.2 42.0-52.0 % Mean Corpuscular Volume 92.0 80.0-98.0 fL Mean Corpuscular Hemoglobin 30.5 27.0-33.0 pg Mean Corpuscular HGB Conc 33.1 31.0-36.0 g/dl Red Cell Distribution Width 13.5 11.0-16.0 % Platelet Count 298 160-400 X10*3/uL Mean Platelet Volume 9.4 9.4-12.4 fL Neutrophils Percent Auto 72.2 45-73 % Imm Gran Pct Auto 0.3 0.0-0.4 % Lymphocytes Percent Auto 15.7 20-40 % Monocytes Percent Auto 10.4 2-11 % Eosinophils Percent Auto 0.6 0-4 % Basophils Percent Auto 0.8 0-2 % NRBC Pct Auto 0.0 0.0-0.2 /100WBC Neutrophils Absolute Auto 6.9 2.0-8.3 x10*3/u L Imm Gran Abs Auto 0.03 0.00-0.03 X10*3/uL Lymphocytes Absolute Auto 1.5 1.2-4.9 X10*3/u L Monocytes Absolute Auto 1.0 0.1-1.2 X10*3/uL Eosinophils Absolute Auto 0.1 0.0-0.4 X10*3/u L Basophils Absolute Auto 0.1 0.0-0.2 X10*3/uL NRBC Abs Auto 0.000 0.0-0.012 X10*3/uL Comprehensive Met. Panel Reviewed date:08/13/2024 04:55:29 AM Interpretation: Performing Lab:[facility], [address] [place] [phone] Notes/Report: Sodium 139 135-145 mmol/L Potassium 5.0 3.3-5.1 mmol/L Chloride 108 96-108 mmol/L Carbon Dioxide 26 22-29 mmol/L Anion Gap 10 12-20 Blood Urea Nitrogen 26 9-16 mg/dL Creatinine 1.15 0.5-1.4 mg/dL Estimated Glomerular Filt Rate > 60 Chronic Kidney Disease: Estimated GFR < 60 mL/min/1.73m2 Severe Kidney Disease: Estimated GFR < 15 mL/min/1.73m2 Glucose Random 104 60-115 mg/dL Calcium 10.0 8.4-10.2 mg/dL Bilirubin Total 0.6 0.0-1.0 mg/dL Aspartate Amino Transferase 33 5-37 U/L Alanine Aminotransferase 31 0-40 U/L Total Protein 7.6 6.5-8.0 g/dL Albumin Level 4.3 3.5-5.0 g/dL Alkaline Phosphatase 92 39-117 U/L Prostate Specific Antigen Reviewed date:08/13/2024 04:55:29 AM Interpretation: Performing Lab:[facility], [address] [place] [phone] Notes/Report: Prostate Specific Antigen 4.00 <0.05-4.0 ng/mL PSA methodology: [place] Alinity i Chemiluminescent Microparticle Immunoassay (CMIA) Reason For Referral Reason Screening Colonoscop y Diagnosis 1 Colon cancer screeni ng (Z12.11) Referral Organization Thaddeus Oreilly III, MD Referring Provider First Name Thaddeus Referring Provider Last Name Denilson Referring Provider Speciality Internal M edicine Referred Organization [employer] [facility] Referred Provider [facility] er, Gastroenterology Referred Address [address] [place] [address],[place], [place],[id number], Referred Provider Specialty Gastroentero logy General Notes Harini Rodriguez 2023 03:40:44 PM EDT > Patient is unable to go to [facility] no showed to appointments last year. Referral being sent to [facility], Harini Rodriguez 12/06/2023 03:41:33 PM EDT > Referral Sent to [facility] with progress note Referral Priority Routine Referral Appointment Date 02/08/2024 Medications Medication SIG (Take, Route, Frequency, Duration) Notes Start Date End Date Status Ventolin HFA 108 (90 Base) MCG/ACT INHALE 2 PUFFS INTO THE LUNGS EVERY 6 HOURS Active Omeprazole 20 MG TAKE 1 CAPSULE BY [facility] EVERY DAY 30 MINUTES BEFORE BREAKFAST Active Roflumilast 500 MCG 1 tablet Orally Once a day Active Montelukast Sodium 10 MG TAKE 1 TABLET B Y MOUTH AT BEDTIME Diagnosis Unavailable Oral Active Immunizations Vaccine Route Administration Date Status Comme nts Influenza Unknown 2012 Administered Influenza Unknown 06/11/2015 Administered Tdap Unknown 11/18/2014 Administered Influenza no Preserv 3 and > Unknown 07/14/2020 Adminis tered COVID- 19 Vaccine Unknown 01/05/2021 Administered 1st P zifer COVID- 19 Vaccine Unknown 01/26/2021 Administered 2nd P fizer Influenza no Preserv 3 and > Unknown 06/02/2011 Adminis tered RSV Adjuvant Unknown 08/22/2023 Administered PCV13 Unknown 05/26/2017 Administered PPV 23 Unknown 07/06/2018 Administered COVID-19 Comirnaty Pfizer-BioNTech Unknown 08/22/2023 Administered COVID Pfizer Bivalent Unknown 08/22/2023 Administered Social History Tobacco Use: Social History Observation Description Date Details (start date - stop date) Former Smoker NA - NA Sex Assigned At : Social History Observation Description Sex Assigned At Male Tobacco Use/Smoking Question Answer Notes Patient is a former smoker How long has it been since you last smoked? > 10 years Additional Findings: Tobacco Non-User Ex-cigaret te smoker Alcohol Screen Question Answer Notes Did you have a drink containing alcohol in the p ast year? No Points 0 Interpretation Negative Problems Problem Type SNOMED Code ICD Code Onset Dates Problem Status W/U Status Risk Notes Problem 4086739 Former smoker (Z87.891) Active confirmed He is highly motivated not to smoke. We discussed a plan to prevent relapse in times of stress and illness. Problem Obesity (316588270) Obesity (BMI 30.0-34.9) (E66.9) Active confirmed His body mass index is 31 with 243 pounds. We have reviewed his weight loss strategy. We have discussed diet and nutrition. I recommended he lose weight at a rate of one half up of a pound to a diet restricted in fat calories and sodium combined with regular exercise. Problem 63007706 Skin lesion (L98.9) Active confirmed He will call me in 3 weeks. If the lesion does not resolve he will be seen by a special needs tutor. Problem 40237657 Simple chronic bronchitis (J41.0) Active confirmed Problem 98750508 Chronic obstructive pulmonary disease, unspecified COPD type (J44.9) Active confirmed He will continu e to see the application software engineer regularly. The 6 mm pulmonary nodule will be followed carefully. He will refrain from smoking. He will exercise regularly. He will continue to use his nebulizer and his new inhaler. Problem Benign prostatic hypertrophy (003592022) Benign prostatic hypertrophy (N40.0) Active confirmed He has been rising from sleep once a night to urinate. We discussed lifestyle modifications he could make to reduce this nocturia. Problem 910298879 Gastroesophageal reflux disease without esophagitis (K21.9) Active confirmed His symptoms ar e well-controlled with current regimen. No change was necessary today. Problem 641714861 History of appendectomy (Z90.49) Active confirmed This was done a t the age of 7. 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 Problem 599090652 Pulmonary nodule less than 6 mm determined by computed tomography of lung (R91.1) Active confirmed The 6 mm left lower lobe nodule is stable on a CT scan done in January of this year. He will have an annual CT scan. Vital Signs Heart Rate 95 /min 08/13/2024 Temperature 97.7 degrees Fahrenheit 08/13/2024 Blood pressure diastolic 84 mm Hg 08/13/2024 Height 74 in 08/13/2024 Blood pressure systolic 132 mm Hg 08/13/2024 Weight 233 lbs 08/13/2024 BMI 29.91 kg/m2 08/13/2024 Encounters Encounter Location Date Provider Diagnosis Thaddeus Oreilly III, MD [address] [place] [address] [place] [address] 11/02/2023 Thaddeus Oreilly Benign prostatic hypertrophy N40.0 ; Obesity (BMI 30.0-34.9) E66.9 ; Former smoker Z87.891 ; Chronic obstructive pulmonary disease, unspecified COPD type J44.9 ; Gastroesophageal reflux disease without esophagitis K21.9 and Pulmonary nodule less than 6 mm determined by computed tomography of lung R91.1 Thaddeus Oreilly III, MD [address] [place] [address] [place] [address] 02/01/2024 Thaddeus Oreilly Benign prostatic hypertrophy N40.0 ; Obesity (BMI 30.0-34.9) E66.9 ; Gastroesophageal reflux disease without esophagitis K21.9 ; Chronic obstructive pulmonary disease, unspecified COPD type J44.9 and Former smoker Z87.891 Thaddeus Oreilly III, MD [address] [place] [address] [place] [address] 05/14/2024 Thaddeus Oreilly Gastroesophageal ref lux disease without esophagitis K21.9 ; Chronic obstructive pulmonary disease, unspecified COPD type J44.9 ; Former smoker Z87.891 ; Pulmonary nodule less than 6 mm determined by computed tomography of lung R91.1 and Benign prostatic hypertrophy N40.0 Thaddeus Oreilly III, MD [address] [place] [address] [place] [address] 08/13/2024 Thaddeus Oreilly Benign prostatic hypertrophy N40.0 ; Chronic obstructive pulmonary disease, unspecified COPD type J44.9 ; Former smoker Z87.891 ; Gastroesophageal reflux disease without esophagitis K21.9 and Overweight (BMI 25.0-29.9) E66.3 Assessments Encounter Date Diagnosis (ICD Code) Assessment Notes Treat ment Notes Treatment Clinical Notes 11/02/2023 Obesity (BMI 30.0-34.9) (ICD-10 - E66.9) His body mass index is 31.2 and he weighs 241 pounds. We discussed his diet and nutrition. We made a plan to lose weight A to 1/2 pound per week through a diet restricted in fat calories and sodium combined with regular physical activity. 11/02/2023 Benign prostatic hypertrophy (ICD-10 - N40.0) He rises from sleep once or twice a night depending upon fluid intake. We discussed lifestyle modification as a way [...] and sodium combined with regular exercise. 02/01/2024 Benign prostatic hypertrophy (ICD-10 - N40.0) He rises from sleep once a night to urinate. We discussed lifestyle modification as a way to reduce nocturia. 05/14/2024 Chronic obstructive pulmonary disease, unspecified COPD type (ICD-10 - J44.9) He will continue to see the application software engineer regularly. The 6 mm pulmonary nodule will be followed carefully. He will refrain from smoking. He will exercise regularly. He will continue to use his nebulizer and his new inhaler. 05/14/2024 Gastroesophageal reflux disease without esophagitis (ICD-10 - K21.9) His symptoms are well-controlled with current regimen. No change was necessary today. 08/13/2024 Chronic obstructive pulmonary disease, unspecified COPD type (ICD-10 - J44.9) He will continue to see the application software engineer regularly. The 6 mm pulmonary nodule will be followed carefully. He will refrain from smoking. He will exercise regularly. He will continue to use his nebulizer and his new inhaler. 08/13/2024 Benign prostatic hypertrophy (ICD-10 - N40.0) He has been rising from sleep once a night to urinate. We discussed lifestyle modifications he could make to reduce this nocturia. 11/02/2023 Former smoker (ICD-1 0 - Z87.891) He is highly motivated not to smoke. We discussed a plan to prevent relapse in times of stress and illness. 02/01/2024 Gastroesophageal reflux disease without esophagitis (ICD-10 - K21.9) His symptoms are well-controlled with current regimen. No change was necessary today. 05/14/2024 Former smoker (ICD-1 0 - Z87.891) He is highly motivated not to smoke. We discussed a plan to prevent relapse in times of stress and illness. 08/13/2024 Former smoker (ICD-1 0 - Z87.891) He is highly motivated not to smoke. We discussed a plan to prevent relapse in times of stress and illness. 11/02/2023 Chronic obstructive pulmonary disease, unspecified COPD type (ICD-10 - J44.9) He will continue to see the application software engineer regularly. The 6 mm pulmonary nodule will be followed carefully. He will refrain from smoking. He will exercise regularly. He will continue to use his nebulizer and his new inhaler. 02/01/2024 Chronic obstructive pulmonary disease, unspecified COPD type (ICD-10 - J44.9) He will continue to see the application software engineer regularly. The 6 mm pulmonary nodule will be followed carefully. He will refrain from smoking. He will exercise regularly. He will continue to use his nebulizer and his new inhaler. 05/14/2024 Pulmonary nodule les s than 6 mm determined by computed tomography of lung (ICD-10 - R91.1) The 6 mm left lower lobe nodule is stable on a CT scan done in January of this year. He will have an annual CT scan. 08/13/2024 Gastroesophageal reflux disease without esophagitis (ICD-10 - K21.9) His symptoms are well-controlled with current regimen. No change was necessary today. 11/02/2023 Gastroesophageal reflux disease without esophagitis (ICD-10 - K21.9) His symptoms are well-controlled with current regimen. No change was necessary today. 02/01/2024 Former smoker (ICD-1 0 - Z87.891) He is highly motivated not to smoke. We discussed a plan to prevent relapse in times of stress and illness. 05/14/2024 Benign prostatic hypertrophy (ICD-10 - N40.0) He rises from sleep once a night to urinate. We discussed lifestyle modification as a way to reduce nocturia. 08/13/2024 Overweight (BMI 25.0-29.9) (ICD-10 - E66.3) He has lost 2 pounds and is now overweight with a body mass index of 29. We discussed his weight loss strategy and I reinforced continued weight loss through diet restricted in fat calories and sodium. 11/02/2023 Pulmonary nodule les s than 6 mm determined by computed tomography of lung (ICD-10 - R91.1) The 6 mm left lower lobe nodule is stable on a CT scan done in January of this year. He will have an annual CT scan. Plan Of Treatment Pending Test Test Name Order Date PROFILE, FASTING (COMPREHENSIVE METABOLI C) 03/31/2022 PROFILE, FASTING (COMPREHENSIVE METABOLI C) 12/02/2021 PROFILE, FASTING (COMPREHENSIVE METABOLI C) 08/13/2024 PROFILE, FASTING (COMPREHENSIVE METABOLI C) 10/15/2020 PROFILE, RANDOM (COMPREHENSIVE METABOLIC ) 09/02/2021 LIPID PANEL 10/15/2020 LIPID PANEL 12/02/2021 LIPID PANEL 09/02/2021 PSA, TOTAL 09/02/2021 PSA, TOTAL 08/13/2024 PSA, TOTAL 10/15/2020 PSA, TOTAL 03/31/2022 PSA, TOTAL 12/02/2021 CBC w DIFF 12/02/2021 CBC w DIFF 09/02/2021 CBC w DIFF 10/15/2020 CBC w DIFF 03/31/2022 XR CHEST 2 VIEW PA & LAT 05/22/2018 XR CHEST 2 VIEW PA & LAT 03/12/2020 Echocardiogram 05/22/2018 PFT with DLCO 04/04/2020 CBC WITH AUTO DIFF 08/13/2024 Lipid Panel 08/13/2024 Lipid Panel 03/31/2022 Next Appt Details Provider Name:Thaddeus Oreilly, 11/05/2024 03:00:00 PM, [address] [place] [address] [address], [place], [address], Insurance Providers Payer Name Payer Address Payer Phone Subscriber Number Group Number Insured Name Patient Relationship to Insured Coverage Start Date Coverage End Date MEDICARE NGS [address] [place] [address] [id number] CURT WOODS Self - patient is the insured MEDICAID [address] JONATHAN LAWSON [id number] CURT WOODS Self - patient is the insured Medical (General) History Medical History History ICD Code COPD Emphysema Diffusion defect 6 mm pulmonary nodule November 2021 Obesity Benign prostatic hypertrophy Glaucoma Former smoker GERD Surgical History Surgery Date(Month/Year) appendectomy age 7 No history Hospitalization History Reason Date(Month/Year) No history
== END 2024-08-10 13:03 | disposition home or self-care (01) ==
LOC: HO.HMGCLDS 13:02
PROVIDERS: PCP Internal Medicine Medical Oncology; Visit Provider Internal Medicine Medical Oncology
DX: N40.0 Benign prostatic hyperplasia without lower urinary tract symptoms (principal); E66.9 Obesity, unspecified; Z12.5 Encounter for screening for malignant neoplasm of prostate
CPT/HCPCS: 36415; 80053; 84153; 85025

== ENCOUNTER 2024-10-31 11:00 | Outpatient (REF) | payer MEDICARE, MEDICAID, SELFPAY ==
[2024-10-31 13:39] LABS: MANUAL DIFF FLAG NO
--- OUTSIDE RECORDS SUMMARY | 2024-10-31 13:46 | XMS_ITS ---
Author Organization Thaddeus Oreilly III, MD Address [address] [place] [address] [place] [address] Care Team Providers Care Open Hearth Worker Name Role Phone Thaddeus Oreilly Primary Care [...] Date Provider Diagnosis Thaddeus Oreilly III, MD [address] [place] [address] [place] [address] 02/01/2024 Thaddeus Oreilly Benign prostatic hypertrophy N40.0 [...] J44.9) He will continue to see the institutional research coordinator regularly. The 6 mm pulmonary nodule will [...] OV Provider Name:Thaddeus Oreilly, 11/05/2024 03:00:00 PM, [address] [place] [address] [address], [place], [address], Progress Notes * CURT WOODSDOB:1950 (73 yo M)Acc No.[id number]:02/01/2024 Progress Notes Patient:?CURT WOODS Provider:?Thaddeus Oreilly MD :1950???Age:73 Y???Sex:Male Thomas e:02/01/2024 Address:[address] [place], [place] [id number] Subjective: * Chief Complaints: * ???GERDCOPDBenign prostatic [...] smoker ???He was born and raised in [facility]. 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 * Medications:?TakingVentolin HFA 108 (90 Base) MCG/ACT [...] mg/dL) 41 (Ref Range: mg/dL) * Lab:[facility] [place]. Pane l Fast * Order Date 02/01/2024 [...] J44.9, He will continue to see the institutional research coordinator regularly. The 6 mm pulmonary nodule will [...] Oreilly MD Date:?01/04 Generated for Hayden wiley/Shawn/Brice on:?10/31/2024 01:46 PM EST History and Physical Notes * HPI (History of Present Illness) Category Sub-Category Detail Notes COVID-19 Screening Questions Have you had any new onset fever, chills, cough, congestion, sore throat, shortness of breath, muscle aches?: No Have you been exposed to the virus withi n the last 10 days?: No Have you travelled internationally in [facility] last 10 days?: No Have you been [...]
--- OUTSIDE RECORDS SUMMARY | 2024-10-31 13:46 | XMS_ITS ---
Author Organization Thaddeus Oreilly III, MD Address [address] [place] [address] [place] [address] Care Team Providers Care Ramp Supervisor Name Role Phone Thaddeus Oreilly Primary Care [...] Omeprazole 20 MG TAKE 1 CAPSULE BY [facility] EVERY DAY 30 MINUTES BEFORE BREAKFAST Active [...] Date Provider Diagnosis Thaddeus Oreilly III, MD [address] [place] [address] DR RIVERA, JONATHAN [address] 08/13/2024 Thaddeus Oreilly Benign prostatic hypertrophy N40.0 [...] J44.9) He will continue to see the supervisor gas meter repair regularly. The 6 mm pulmonary nodule will [...] Omeprazole 20 MG TAKE 1 CAPSULE BY [facility] EVERY DAY 30 MINUTES BEFORE BREAKFAST Roflumilast 500 MCG 1 tablet Orally Once a day Montelukast Sodium 10 MG TAKE 1 TABLET B Y MOUTH AT BEDTIME Diagnosis Unavailable Oral Pending Test Test Name Order Date PROFILE, FASTING (COMPREHENSIVE METABOLI C) 08/13/2024 PSA, TOTAL 08/13/2024 CBC WITH AUTO DIFF 08/13/2024 Lipid Panel 08/13/2024 Next Appt Details Follow Up: As Scheduled, [facility] visit on November 05, Reason: OV, Annual Checkup Provider Name:Thaddeus Oreilly, 11/05/2024 03:00:00 PM, [address] [place] [address] DARLIN CARVER, [place], [phone], Progress Notes * CURT WOODSDOB:1950 (73 yo M)Acc No.[id number]:08/13/2024 Progress Notes Patient:?CURT WOODS Provider:?Thaddeus Oreilly MD :1950???Age:73 Y???Sex:Male Thomas e:08/13/2024 Address:[address] [place] [address] RAMUHelen ESTELALukas [id number] Subjective: * Chief Complaints: * ???GERDCOPDBenign prostatic [...] smoker ???He was born and raised in [facility]. 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 * Medications:?TakingVentolin HFA 108 (90 Base) MCG/ACT [...] Date & Time - 08/10/2024 01:10 PM)?ValueReference Range?Cokunb003212-340 - mmol/L?Bilirubin Total0.60.0-1.0 - mg/dL?Aspartate Amino Wcgknuxrgii725-34 - U/L?Alanine Edxsiworpusdolpd598-93 - U/L?Total Protein7.66.5-8.0 - g/dL?Albumin Level4.33.5-5.0 - g/dL?Alkaline Olhirdntrxg1804-798 - U/L?Potassium5.03.3-5.1 - mmol/L?Lsjxtrol640 96-108 - mmol/L?Carbon Lyylxiq1154-78 - mmol/L?Anion Ceu92P14-30 - ?Blood Urea Wmbnbelo00F7-38 - mg/dL?Creatinine1.150.5-1.4 - mg/dL ?Estimated Glomerular Filt Rate> 60-?Glucose Zooazh83718-663 - mg/dL?Odagpux90.08.4-10.2 - mg/dL * Examination: ???General Examination: ?GENERAL [...] (Primary)???Notes :He will continue to see the supervisor gas meter repair regularly. The 6 mm pulmonary nodule will [...] the most.? * Follow Up:?As Scheduled, [facility] visit on November 05 (Reason: OV, Annual Checkup) * Images: * Sign off status: Completed true * Provider:?Thaddeus Oreilly MD Date:?05/2024 Generated for Hayden wiley/Shawn/Deshawnitting on:?10/31/2024 01:46 PM EST History and Physical Notes * HPI (History of Present Illness) Category Sub-Category Detail Notes COVID-19 Screening Questions Have you had any new onset fever, chills, cough, congestion, sore throat, shortness of breath, muscle aches?: No Have you been exposed to the virus withi n the last 10 days?: No Have you travelled internationally in last 10 days?: No Have you been [...]
--- OUTSIDE RECORDS SUMMARY | 2024-10-31 13:46 | XMS_ITS | Patient Health Record ---
Author Organization Thaddeus Oreilly III, MD Address [address] [place] [address] Care Team Providers Care Clinic Licensed Practical Nurse Name Role Phone Thaddeus Oreilly Primary Care [...] ff Reviewed date:02/04/2024 08:30:51 AM Interpretation: Performing Lab:[facility], [address] [place] [phone] Notes/Report: White Blood Count 10.4 4.8-10.8 X10*3/uL [...] NRBC Abs Auto 0.000 0.0-0.012 X10*3/uL Comprehensive [place]. Panel Fa st Reviewed date:02/04/2024 08:30:51 AM Interpretation: Performing Lab:[facility], [address] [place] [phone] Notes/Report: Sodium 139 135-145 mmol/L Potassium 5.5 3.3-5.1 mmol/L Chloride 108 96-108 mmol/L Carbon Dioxide 23 22-29 mmol/L Anion Gap 14 12-20 Blood Urea Nitrogen 23 9-16 mg/dL Creatinine 1.20 0.5-1.4 mg/dL Estimated Glomerular Filt Rate 59 NOTE: For -[place]icarag[place] individuals, multiply the result by 1.210. Chronic [...] Panel Reviewed date:02/04/2024 08:30:51 AM Interpretation: Performing Lab:[address] [phone] Notes/Report: Triglycerides 205 <150 mg/dL Desirable Triglyceride: [...] Antigen Reviewed date:02/04/2024 08:30:51 AM Interpretation: Performing Lab:[facility], [address] [place] [phone] Notes/Report: Prostate Specific Antigen 3.48 <0.05-4.0 ng/mL PSA methodology: Whatley Alinity i Chemiluminescent Microparticle Immunoassay (CMIA) Complete Blood Count Auto Di ff Reviewed date:08/13/2024 04:55:29 AM Interpretation: Performing Lab:[address] [phone] Notes/Report: White Blood Count 9.6 4.8-10.8 X10*3/uL [...] Panel Reviewed date:08/13/2024 04:55:29 AM Interpretation: Performing Lab:[facility], [address] [place] [phone] Notes/Report: Sodium 139 135-145 mmol/L Potassium 5.0 [...] Antigen Reviewed date:08/13/2024 04:55:29 AM Interpretation: Performing Lab:[facility], [address] [place] [phone] Notes/Report: Prostate Specific Antigen 4.00 <0.05-4.0 ng/mL PSA methodology: Whatley Alinity i Chemiluminescent Microparticle Immunoassay (CMIA) Reason For Referral Reason Screening Colonoscop y Diagnosis 1 Colon cancer screeni ng (Z12.11) Referral Organization Thaddeus Oreilly III, MD Referring Provider First Name Thaddeus Referring Provider Last Name Denilson Referring Provider Speciality Internal M edicine Referred Organization [facility] nter Referred Provider [facility] er, Gastroenterology Referred Address [address] [place] [address],[place], [id number], Referred Provider Specialty Gastroentero logy General Notes Harini Rodriguez 2023 03:40:44 PM EDT > Patient is unable to go to [facility] no showed to appointments last year. Referral being sent to [facility], Harini Rodriguez 12/06/2023 03:41:33 PM EDT > Referral Sent to [facility] with progress note Referral Priority Routine Referral Appointment Date 02/08/2024 Medications Medication SIG (Take, Route, Frequency, Duration) Notes Start Date End Date Status Omeprazole 20 MG TAKE 1 CAPSULE BY [facility] EVERY DAY 30 MINUTES BEFORE BREAKFAST Active Roflumilast 500 MCG 1 tablet Orally Once a day Active Montelukast Sodium 10 MG TAKE 1 TABLET B Y MOUTH AT BEDTIME Diagnosis Unavailable Oral Active Ventolin HFA 108 (90 Base) MCG/ACT INHALE 2 PUFFS INTO THE LUNGS EVERY 6 HOURS for 25 Activ e Immunizations Vaccine Route Administration Date Status Comme [...] Problem Status W/U Status Risk Notes Problem 2204972 Former smoker (Z87.891) Active confirmed He is highly motivated not to smoke. We discussed a plan to prevent relapse in times of stress and illness. Problem Obesity (366795883) Obesity (BMI 30.0-34.9) (E66.9) Active confirmed His body mass index is 31 with 243 pounds. We have reviewed his weight loss strategy. We have discussed diet and nutrition. I recommended he lose weight at a rate of one half up of a pound to a diet restricted in fat calories and sodium combined with regular exercise. Problem 75356053 Skin lesion (L98.9) Active confirmed He will call me in 3 weeks. If the lesion does not resolve he will be seen by a hand sample maker. Problem 17828833 Simple chronic bronchitis (J41.0) Active confirmed Problem 77411935 Chronic obstructive pulmonary disease, unspecified COPD type (J44.9) Active confirmed He will continu e to see the telephone information clerk regularly. The 6 mm pulmonary nodule will be followed carefully. He will refrain from smoking. He will exercise regularly. He will continue to use his nebulizer and his new inhaler. Problem Benign prostatic hypertrophy (170222858) Benign prostatic hypertrophy (N40.0) Active confirmed He has been rising from sleep once a night to urinate. We discussed lifestyle modifications he could make to reduce this nocturia. Problem 910998698 Gastroesophageal reflux disease without esophagitis (K21.9) Active confirmed His symptoms ar e well-controlled with current regimen. No change was necessary today. Problem 655942016 History of appendectomy (Z90.49) Active confirmed This was done a t the age of 7. 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 Problem 586083976 Pulmonary nodule less than 6 mm determined [...] Date Provider Diagnosis Thaddeus Oreilly III, MD [address] [place] [address] [place] [address] 11/02/2023 Thaddeus Oreilly Benign prostatic hypertrophy N40.0 ; Obesity (BMI 30.0-34.9) E66.9 ; Former smoker Z87.891 ; Chronic obstructive pulmonary disease, unspecified COPD type J44.9 ; Gastroesophageal reflux disease without esophagitis K21.9 and Pulmonary nodule less than 6 mm determined by computed tomography of lung R91.1 Thaddeus Oreilly III, MD [address] [place] [address] [place] [address] 02/01/2024 Thaddeus Oreilly Benign prostatic hypertrophy N40.0 ; Obesity (BMI 30.0-34.9) E66.9 ; Gastroesophageal reflux disease without esophagitis K21.9 ; Chronic obstructive pulmonary disease, unspecified COPD type J44.9 and Former smoker Z87.891 Thaddeus Oreilly III, MD [address] [place] [address] [place] [address] 05/14/2024 Thaddeus Oreilly Gastroesophageal ref lux disease without esophagitis K21.9 ; Chronic obstructive pulmonary disease, unspecified COPD type J44.9 ; Former smoker Z87.891 ; Pulmonary nodule less than 6 mm determined by computed tomography of lung R91.1 and Benign prostatic hypertrophy N40.0 Thaddeus Oreilly III, MD [address] [place] [address] [place] [address] 08/13/2024 Thaddeus Oreilly Benign prostatic hypertrophy N40.0 [...] J44.9) He will continue to see the telephone information clerk regularly. The 6 mm pulmonary nodule will [...] J44.9) He will continue to see the telephone information clerk regularly. The 6 mm pulmonary nodule will [...] J44.9) He will continue to see the telephone information clerk regularly. The 6 mm pulmonary nodule will be followed carefully. He will refrain from smoking. He will exercise regularly. He will continue to use his nebulizer and his new inhaler. 02/01/2024 Chronic obstructive pulmonary disease, unspecified COPD type (ICD-10 - J44.9) He will continue to see the telephone information clerk regularly. The 6 mm pulmonary nodule will [...] Details Provider Name:Thaddeus Oreilly, 11/05/2024 03:00:00 PM, [address], [place], [phone], Insurance Providers Payer Name Payer Address Payer Phone Subscriber Number Group Number Insured Name Patient Relationship to Insured Coverage Start Date Coverage End Date MEDICARE NGS [address] [place] [address] [id number] CURT WOODS Self - patient is the insured MEDICAID [address] JONATHAN LAWSON [id number] CURT WOODS Self - patient is the insured Medical (General) History Medical History History ICD Code COPD Emphysema Diffusion defect 6 mm pulmonary nodule November 2021 Obesity Benign prostatic hypertrophy Glaucoma Former smoker GERD Surgical History Surgery Date(Month/Year) appendectomy age 7 No history Hospitalization History Reason Date(Month/Year) No history
--- OUTSIDE RECORDS SUMMARY | 2024-10-31 13:46 | XMS_ITS ---
Author Organization Thaddeus Oreilly III, MD Address [address] [place] [address] DR SAEED Yakelin [place] [address] Care Team Providers Care Strain Technician Name Role Phone Thaddeus Oreilly Primary Care [...] Date Provider Diagnosis Thaddeus Oreilly III, MD [address] [place] [address] [place] [address] 05/14/2024 Thaddeus Oreilly Gastroesophageal ref lux disease [...] J44.9) He will continue to see the planning aide regularly. The 6 mm pulmonary nodule will [...] tests Provider Name:Thaddeus Oreilly, 11/05/2024 03:00:00 PM, [address] [place] [address] DARLIN CARVER, [place], [phone], Progress Notes * REGAN WOODS:1950 (73 yo M)Acc No.[id number]:05/14/2024 Progress Notes Patient:?CURT WOODS Provider:?Thaddeus Oreilly MD :1950???Age:73 Y???Sex:Male Thomas e:05/14/2024 Address:[address] [place], [place] [phone] Subjective: * Chief Complaints: * ???GerdCOPDBenign prostatic hypertrophyObesity * HPI: ???COVID-19 Screening:? He returns to the office for medical management. He is going to have a colonoscopy next June. This will be done by GI at [facility]. He has lost 8 pounds. [...] smoker ???He was born and raised in [facility]. 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 His father was a sunday school missionary. * Medications:?TakingVentolin HFA 108 (90 Base) MCG/ACT [...] J44.9, He will continue to see the planning aide regularly. The 6 mm pulmonary nodule will [...] Oreilly MD Date:?05/2024 Generated for Hayden wiley/Shawn/eTransmitting on:?10/31/2024 01:46 PM EST History and Physical Notes * HPI (History of Present Illness) Category Sub-Category Detail Notes COVID-19 Screening Questions Have you had any new onset fever, chills, cough, congestion, sore throat, shortness of breath, muscle aches?: No Have you been exposed to the virus withi n the last 10 days?: No Have you travelled internationally in [facility] last 10 days?: No Have [...]
[2024-10-31 13:57] LABS: Basophils Absolute Auto 0.1 X10*3/uL (0.0-0.2); Basophils Percent Auto 0.8 % (0-2); Eosinophils Absolute Auto 0.1 X10*3/uL (0.0-0.4); Hematocrit 48.1 % (42.0-52.0); Imm Gran Abs Auto 0.02 X10*3/uL (0.00-0.03); Imm Gran Pct Auto 0.3 % (0.0-0.4); Lymphocytes Absolute Auto 1.1 X10*3/uL (1.2-4.9); Lymphocytes Percent Auto 14.2 % (20-40); Mean Corpuscular HGB Conc 33.3 g/dl (31.0-36.0); Mean Corpuscular Hemoglobin 30.4 pg (27.0-33.0); Mean Corpuscular Volume 91.4 fL (80.0-98.0); Monocytes Absolute Auto 0.9 X10*3/uL (0.1-1.2); Monocytes Percent Auto 11.5 % (2-11); Neutrophils Absolute Auto 5.7 x10*3/uL (2.0-8.3); Neutrophils Percent Auto 72.2 % (45-73); Platelet Count 283 X10*3/uL (160-400); Red Blood Count 5.26 X10*6/uL (4.60-5.80); Red Cell Distribution Width 13.5 % (11.0-16.0); White Blood Count 7.8 X10*3/uL (4.8-10.8)
[2024-10-31 14:26] LABS: Alanine Aminotransferase 35 U/L (0-40); Albumin Level 4.2 g/dL (3.5-5.0); Alkaline Phosphatase 96 U/L (39-117); Anion Gap 12 (12-20); Aspartate Amino Transferase 31 U/L (5-37); Bilirubin Total 0.8 mg/dL (0.0-1.0); Blood Urea Nitrogen 20 mg/dL (9-16); Calcium 9.6 mg/dL (8.4-10.2); Carbon Dioxide 25 mmol/L (22-29); Chloride 106 mmol/L (96-108); Cholesterol 197 mg/dL (<200); Estimated Glomerular Filt Rate > 60; Glucose Fasting 93 mg/dL (60-99); HDL Cholesterol 36 mg/dL (>40); LDL Cholesterol Calculated 122 mg/dL (<100); Potassium 4.4 mmol/L (3.3-5.1); Sodium 139 mmol/L (135-145); Total Protein 7.6 g/dL (6.5-8.0); Triglycerides 197 mg/dL (<150)
[2024-10-31 14:36] LABS: Prostate Specific Antigen 3.92 ng/mL (<0.05-4.0)
== END 2024-10-31 11:01 | disposition home or self-care (01) ==
LOC: HO.HMGCLDS 11:00
PROVIDERS: PCP Internal Medicine Medical Oncology; Visit Provider Internal Medicine Medical Oncology
DX: E66.9 Obesity, unspecified (principal); N40.0 Benign prostatic hyperplasia without lower urinary tract symptoms
CPT/HCPCS: 36415; 80053; 80061; 84153; 85025

== ENCOUNTER 2024-11-26 15:28 | Outpatient (AMB) | payer MEDICARE, MEDICAID, SELFPAY ==
[2024-11-26 15:38] VITALS: BP 120/62; PULSE 97; O2SAT 94; BMI 29.2
--- NOTE | 2024-11-26 15:38 | MHC.OFFVIS ---
Vital Signs 11/26/24 15:38 Height 6 ft 2 in Weight 227 lb 1.218 oz BMI 29.2 BP 120/62 Blood Pressure Location Rt brachial Position Sitting Pulse 97 Pulse Source Pulse Oximeter Pulse Oximetry (%) 94 Oxygen Delivery Method Room Air Intake Visit Reasons: COPD Allergies No Known Allergies Allergy (Verified 11/26/24 15:41) HPI Comments Details: The patient is a 74 year-old gentleman known history of tobacco dependency complaining of worsening shortness of breath. Apparently patient was a lifelong smoker although he quit about 9 years ago. He quit back down after developing a COPD exacerbation due to a viral syndrome. He has not smoking recess. He has been complaining of worsening dyspnea on exertion moderate severity. 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 He is also having hard time going up a flight of stairs. Therefore he underwent a chest x-ray demonstrating hyperinflated lungs consistent with COPD. He also underwent pulmonary function studies demonstrating severe obstructive ventilatory defect consistent with severe COPD. Also has a moderate diffusion impairment. 09/22/2020 the patient is here for pulmonary follow-up visit. The patient overall feels little better with the medication. He has been using the Breo at nighttime in addition to using the rescue inhaler. He got a prescription for the albuterol generic in he does not feel like it works just as good as the ventilator. She rather have the ventilator HFA. I will requested if he can get it if not he knows that he will have to try the read 1. in the meantime he has been taking the Breo at nighttime he is going to change due to daytime and can make sure a rinses mouth well. He complains of chest congestion and difficulty to expectorating. This consistent with his chronic bronchitis. At this point will try to minimize prednisone. He will be a great candidate for Daliresp. Therefore he is going to started he will started 3 times a week and then increases slowly as he is tolerating the GI symptoms subside. If the symptoms do not subside he is to call and also on the lower dose. Patient is to continue using his respiratory therapy. We did review his lung cancer screening CT scan back in July 2020 which demonstrated a 7 mm pulmonary nodule that will need follow-up. He was read as a rads 2 due to the fact that appears to be trying gland shape and more consistent with a lymph node. 03/16/2021 the patient is here for pulmonary follow-up visit. Overall the patient has been doing better on scarring respiratory regimen. The Breo inhaler has been helpful although he does complaint of throat irritation he has been tolerating the Daliresp. Still complaining of getting winded specially with activity. Hvvi-sv-aapnimaq severity. Does get better with rest. On examination he still wheezy. Therefore will go ahead and had Spiriva to his regimen hoping to maximize his respiratory therapy. In the meantime the patient has not had any additional imaging since back in July. He is scheduled to undergo a repeat CT scan in July 2021. We initially spoken about doing earlier but at this point which is wait to done. Will going to continue with the lung cancer screening program. If the patient develops in other significant symptoms he is call the office and we can always reassess the earlier time. In the meantime will follow up after his CT scan. 09/21/2021 the patient is here for pulmonary follow-up visit. He is complaining of worsening cough typically the morning. He also has shortness of breath and chest tightness. He has been using his inhalers regularly which include Breo and Spiriva. He also has a short-acting beta agonist. She was prescribed Daliresp but does not appear to using regularly. On examination today has a lot of wheezing. The patient was given a DuoNeb treatment with partial improvement of his symptoms. I will treat him for COPD exacerbation. The patient will benefit from nebulizer at home. O providing 1 through her local [employer] company. The patient has not had his low-dose CT scan his to be scheduled for the 2021. I did reach out to the lung cancer screening program in order for him to be scheduled. 11/16/2021 the patient is here for a pulmonary follow-up visit. His breathing still an issue. Still having significant wheezing. We placed him on DuoNeb but now complaining of a dry mouth. Therefore he has been able to do them as often. I will switch him over to regular albuterol in order for him to have less adverse effects. In addition to that will switch his Breo to Trelegy with hopeful maximizing her respiratory therapy. He continues to tolerate the Daliresp. He did have a CT scan of the chest that was personally by me demonstrating stable pulmonary nodules which is reassuring. It appears however that she does have some kidney stones that her basically asymptomatic at this time. The patient will follow up with his primary care provider regarding this issue. He is concerned because his grandmother had complications from kidney stones. 11/26/2024 the patient is here for pulmonary follow-up visit. Overall the patient has been doing well. Has been using his MICHELLE neb and HFA regularly through out the day. No longer using a maintenace inhaler. Seems to prefer the nebulizer. He continues on the Daliresp. Continues to have some shortness breath with activity. Has not had his lung cancer screening sinse 2022. But now smoking free >15 yrs so he aged out of the program. He continues to have some reflux symptoms. He responds well to the omeprazole. We did talk about the importance of the reflux diet. Otherwise patient is without any other complaints. [facility] Medical History Elevated PSA measurement Pulmonary nodule Personal history of nicotine dependence Dyspnea COPD (chronic obstructive pulmonary disease) Surgical History Hx of appendectomy Social History Patient Tobacco Use Status: Former Tobacco user Tobacco use type: Cigarette Years Smoked: Since 12 years old Review of Systems Const Denies night sweats ENT Denies change in voice, Denies lip swelling, Denies mouth pain, Reports nasal congestion, Reports nasal discharge and Denies tongue swelling Card Denies chest pain and Reports dyspnea on exertion Resp Reports cough, Reports dyspnea on exertion and Reports wheezing GI Denies abdominal pain Musc Denies no additional complaints Neuro Denies Neuro-related abnormal movements Psych Denies no additional complaints Anand/Lymph Denies easy bleeding and Denies lymphadenopathy Aller/Immun Denies lip swelling, Denies tongue swelling and Reports wheezing Physical Exam Vital Signs: Last Vital Signs Pulse 97 11/26/24 15:38 BP 120/62 11/26/24 15:38 Pulse Ox 94 11/26/24 15:38 Oxygen Delivery Method Room Air 11/26/24 15:38 BMI result Body Mass Index 29.2 Const General: alert Neck Neck: Yes normal visual inspection, Yes full ROM and Yes no lymphadenopathy Chest Chest palpation & inspection: normal inspection of the chest Resp Effort & Inspection: prolonged expiratory phase Auscultation: wheezes and diminished lung sounds Cardio Rate: regular rate Rhythm: regular rhythm Heart sounds: S1 normal heart sound present and S2 normal heart sound present GI Palpation (GI): Soft to palpation and nontender Auscultation: normal bowel sounds Skin General skin exam: rashes and/or lesions noted Assessment & Plan Assessment & Plan (1) Pulmonary nodule: Code(s): R91.1 - Solitary pulmonary nodule Category: Medical (2) COPD (chronic obstructive pulmonary disease): Code(s): J44.9 - Chronic obstructive pulmonary disease, unspecified Category: Medical Qualifiers: COPD type: COPD with acute exacerbation Qualified Code(s): J44.1 - Chronic obstructive pulmonary disease with (acute) exacerbation (3) Dyspnea: Comment: Primarily due to airway obstruction Code(s): R06.00 - Dyspnea, unspecified Category: Medical Qualifiers: Dyspnea type: dyspnea on exertion Qualified Code(s): R06.00 - Dyspnea, unspecified Plan stopped Trelegy start Budesonide BID start Duoneb BID, may need to switch back to albuterol if too much dry mouth short-acting beta agonist as needed continue Singulair Stopped Daliresp continue albuterol twice a day reflux diet PPI consider pulmonary rehab F/U 4-6 Medications: New budesonide 0.5 mg (2 mL) inhalation BID 30 days 120 mL 11RF J44.9 - Chronic obstructive pulmonary disease, unspecified ipratropium-albuterol 0.5 mg-3 mg(2.5 mg base)/3 mL 3 mL inhalation BID 30 days 180 mL 11RF J44.9 - Chronic obstructive pulmonary disease, unspecified Refilled montelukast (Singulair) 10 mg PO BEDTIME 30 days 30 tabs 11RF J45.909 - Unspecified asthma, uncomplicated Ventolin HFA 90 mcg/actuation (albuterol sulfate) 2 puffs inhalation QID 30 days 18 grams 11RF shortness of breath or wheezing NS Discontinued Trelegy Ellipta 200-62.5-25 mcg (wqvscfmeuvj-galheflej-syiquuce) Discontinued Reason: Doctor's Order 1 ea PO DAILY 60 ea 0RF NS albuterol sulfate Discontinued Reason: Doctor's Order 2.5 mg (3 mL) inhalation BID 180 mL 0RF J44.9 - Chronic obstructive pulmonary disease, unspecified Coding Level of Care Code Est Pt Level 4 (35133) Diagnoses Pulmonary nodule R91.1 Chronic obstructive pulmonary disease with acute exacerbation J44.1 COPD type: COPD with acute exacerbation Dyspnea on exertion R06.00 Dyspnea type: dyspnea on exertion Time Spent (min) 17
--- OUTSIDE RECORDS SUMMARY | 2024-11-26 18:19 | XMS_ITS ---
Author Organization Thaddeus Oreilly III, MD Address [address] [place] [address] DR SAEED [place] [address] Care Team Providers Care Fitter Mechanic Name Role Phone Thaddeus Oreilly Primary Care [...] Date Provider Diagnosis Thaddeus Oreilly III, MD [address] [place] [address] [place] [address] 05/14/2024 Thaddeus Denilson Gastroesophageal ref lux disease without esophagitis K21.9 [...] J44.9) He will continue to see the crew supervisor regularly. The 6 mm pulmonary nodule will [...] Reason: ov no tests Provider Name:Thaddeus Oreilly, 03/13/2025 03:00:00 PM, [address] [place] [address] [address], [place], [address], Provider Name:Thaddeus Oreilly, 11/06/2025 03:00:00 PM, [address] [place] [address] [address], [place], [address], Progress Notes * CURT WOODSDOB:1950 (73 yo M)Acc No.[id number]:05/14/2024 Progress Notes Patient:?CURT WOODS Provider:?Thaddeus Oreilly MD :1950???Age:73 Y???Sex:Male Thomas e:05/14/2024 Address:[address] [place], [place] [address]Helen [phone] Subjective: * Chief Complaints: * ???GerdCOPDBenign prostatic hypertrophyObesity * HPI: ???COVID-19 Screening:? He returns to the office for medical management. He is going to have a colonoscopy next June. This will be done by GI at [facility]. He has lost 8 pounds. 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 * Medications:?TakingVentolin HFA 108 (90 Base) MCG/ACT [...] J44.9, He will continue to see the crew supervisor regularly. The 6 mm pulmonary nodule will [...] * Provider:?Thaddeus Oreilly MD Date:?05/2024 Generated for Printi ng/Faedenilsong/eTransmitting on:?11/26/2024 06:19 PM EDT History and Physical Notes * HPI (History [...]
--- OUTSIDE RECORDS SUMMARY | 2024-11-26 18:20 | XMS_ITS | Patient Health Record ---
Author Organization Thaddeus Oreilly III, MD Address [address] [place] [address] [place] [address] Care Team Providers Care Net Developer With Wcf Name Role Phone Thaddeus Oreilly Primary Care Provider Allergies Allergen (clinical drug ingredient) Drug/Non Drug Allergy documented on EMR Reaction Allergy Type Onset Date Status No Known Drug Allergy Unknown Drug Allergy Active Results Component Value Reference Range Notes Complete Blood Count Auto Di ff Reviewed date:02/04/2024 08:30:51 AM Interpretation: Performing Lab:[facility], [address] [place] [phone] Notes/Report: White Blood Count 10.4 4.8-10.8 X10*3/uL [...] NRBC Abs Auto 0.000 0.0-0.012 X10*3/uL Comprehensive [place]. Panel Fa Reviewed date:02/04/2024 08:30:51 AM Interpretation: Performing Lab:[facility], [address] [place] [phone] Notes/Report: Sodium 139 135-145 mmol/L Potassium 5.5 3.3-5.1 mmol/L Chloride 108 96-108 mmol/L Carbon Dioxide 23 22-29 mmol/L Anion Gap 14 12-20 Blood Urea Nitrogen 23 9-16 mg/dL Creatinine 1.20 0.5-1.4 mg/dL Estimated Glomerular Filt Rate 59 NOTE: For -Ugand[place] individuals, multiply the result by 1.210. Chronic [...] Panel Reviewed date:02/04/2024 08:30:51 AM Interpretation: Performing Lab:[facility], [address] [place] [phone] Notes/Report: Triglycerides 205 <150 mg/dL Desirable Triglyceride: [...] Antigen Reviewed date:02/04/2024 08:30:51 AM Interpretation: Performing Lab:[facility], [address] [place] [phone] Notes/Report: Prostate Specific Antigen 3.48 <0.05-4.0 ng/mL PSA methodology: [employer] Alinity i Chemiluminescent Microparticle Immunoassay (CMIA) Complete Blood Count Auto Di ff Reviewed date:08/13/2024 04:55:29 AM Interpretation: Performing Lab:[facility], [address] [place] [phone] Notes/Report: White Blood Count 9.6 4.8-10.8 X10*3/uL [...] Panel Reviewed date:08/13/2024 04:55:29 AM Interpretation: Performing Lab:[address] [address] Notes/Report: Sodium 139 135-145 mmol/L Potassium 5.0 [...] Antigen Reviewed date:08/13/2024 04:55:29 AM Interpretation: Performing Lab:[address] [phone] Notes/Report: Prostate Specific Antigen 4.00 <0.05-4.0 ng/mL PSA methodology: [employer] Alinity i Chemiluminescent Microparticle Immunoassay (CMIA) Complete Blood Count Auto Di ff Reviewed date:11/05/2024 03:32:23 PM Interpretation: Performing Lab:[facility], [address] [place] [phone] Notes/Report: White Blood Count 7.8 4.8-10.8 X10*3/uL Red Blood Count 5.26 4.60-5.80 X10*6/uL Hemoglobin 16.0 14.0-18.0 g/dl Hematocrit 48.1 42.0-52.0 % Mean Corpuscular Volume 91.4 80.0-98.0 fL Mean Corpuscular Hemoglobin 30.4 27.0-33.0 pg Mean Corpuscular HGB Conc 33.3 31.0-36.0 g/dl Red Cell Distribution Width 13.5 11.0-16.0 % Platelet Count 283 160-400 X10*3/uL Mean Platelet Volume 9.0 9.4-12.4 fL Neutrophils Percent Auto 72.2 45-73 % Imm Gran Pct Auto 0.3 0.0-0.4 % Lymphocytes Percent Auto 14.2 20-40 % Monocytes Percent Auto 11.5 2-11 % Eosinophils Percent Auto 1.0 0-4 % Basophils Percent Auto 0.8 0-2 % NRBC Pct Auto 0.0 0.0-0.2 /100WBC Neutrophils Absolute Auto 5.7 2.0-8.3 x10*3/u L Imm Gran Abs Auto 0.02 0.00-0.03 X10*3/uL Lymphocytes Absolute Auto 1.1 1.2-4.9 X10*3/u L Monocytes Absolute Auto 0.9 0.1-1.2 X10*3/uL Eosinophils Absolute Auto 0.1 0.0-0.4 X10*3/u L Basophils Absolute Auto 0.1 0.0-0.2 X10*3/uL NRBC Abs Auto 0.000 0.0-0.012 X10*3/uL Comprehensive [place]. Panel Fa st Reviewed date:11/05/2024 03:32:23 PM Interpretation: Performing Lab:[facility], [address] [place] [phone] Notes/Report: Sodium 139 135-145 mmol/L Potassium 4.4 3.3-5.1 mmol/L Chloride 106 96-108 mmol/L Carbon Dioxide 25 22-29 mmol/L Anion Gap 12 12-20 Blood Urea Nitrogen 20 9-16 mg/dL Creatinine 0.97 0.5-1.4 mg/dL Estimated Glomerular Filt Rate > 60 Chronic Kidney Disease: Estimated GFR < 60 mL/min/1.73m2 Severe Kidney Disease: Estimated GFR < 15 mL/min/1.73m2 Glucose Fasting 93 60-99 mg/dL Calcium 9.6 8.4-10.2 mg/dL Bilirubin Total 0.8 0.0-1.0 mg/dL Aspartate Amino Transferase 31 5-37 U/L Alanine Aminotransferase 35 0-40 U/L Total Protein 7.6 6.5-8.0 g/dL Albumin Level 4.2 3.5-5.0 g/dL Alkaline Phosphatase 96 39-117 U/L Lipid Panel Reviewed date:11/05/2024 03:32:23 PM Interpretation: Performing Lab:[facility], [address] [place] [phone] Notes/Report: Triglycerides 197 <150 mg/dL Desirable Triglyceride: less than 150 mg/dL Borderline High Triglyceride 150-199 mg/dL High Triglyceride: 200-499 mg/dL Very High Triglyceride: greater than or equal to 5OO mg/dL Cholesterol 197 <200 mg/dL Desirable Cholesterol: less than 200 mg/dL Borderline High Cholesterol: 200-239 mg/dL High Cholesterol: greater than 239 mg/dL LDL Cholesterol Calculated 122 <100 mg/dL Desirable LDL: less than 100 mg/dL Near Optimal/Above Optimal LDL: 110-129 mg/dL Borderline High LDL: 130-159 mg/dL High LDL: 160-189 mg/dL Very High LDL: greater than or equal to 190 mg/dL HDL Cholesterol 36 >40 mg/dL Desirable HDL: greater than 40 mg/dL Note: This HDL assay may give artificially low results in patients with liver disease. Prostate Specific Antigen Reviewed date:11/05/2024 03:32:23 PM Interpretation: Performing Lab:[facility], [address] [place] [phone] Notes/Report: Prostate Specific Antigen 3.92 <0.05-4.0 ng/mL PSA methodology: [employer] Alinity i Chemiluminescent Microparticle Immunoassay (CMIA) Reason For Referral No Information Medications Medication SIG (Take, Route, Frequency, Duration) Notes Start Date End Date Status Roflumilast 500 MCG 1 tablet Orally Once a day Active Omeprazole 20 MG TAKE 1 CAPSULE BY [facility] EVERY DAY 30 MINUTES BEFORE BREAKFAST Active Montelukast Sodium 10 MG TAKE 1 TABLET B Y MOUTH AT BEDTIME Diagnosis Unavailable Oral Active Albuterol Sulfate (2.5 MG/3ML) 0.083% INHALE 3 ML TWICE DAILY WITH NEBULIZER Inhalation Active Ventolin HFA 108 (90 Base) MCG/ACT INHALE 2 PUFFS INTO THE LUNGS EVERY 6 HOURS Active Immunizations Vaccine Route Administration Date Status [...] Administered COVID Pfizer Bivalent Unknown 08/22/2023 Administered Flu-IIv3 Unknown 07/07/2016 Administered Comirnaty Pfizer COVID-19 12+ Unknown 08/22/2023 Admini stered Fluzone High-Dose (HD-IIV3) Unknown 07/13/2024 Administ ered Fluzone High-Dose (HD-IIV3) Unknown 06/11/2015 Administ ered Flu-IIv3 Unknown 05/26/2017 Administered Influenza-iiv4 p-free high dose Unknown 06/29/2022 Admi nistered Flu-IIv3 Unknown 07/06/2018 Administered COVID PFIZER Unknown 08/06/2021 Administered Influenza-iiv4 p-free high dose Unknown 07/14/2020 Admi nistered Fluzone High-Dose (HD-IIV3) Unknown 06/14/2019 Administ ered COVID Pfizer Bivalent Unknown 06/29/2022 Administered Social History Tobacco Use: Social History Observation Description Date Details (start date - stop date) Former Smoker NA - NA Sex Assigned At : Social History Observation Description Sex Assigned At Male Tobacco Control (Standard) Question Answer Notes Tobacco use: Former smoker How long has it been since you last smoked? Grea ter than 10 years Additional Findings: Tobacco non-user Ex-cigaret te smoker AUDIT-C (Standard) Question Answer Notes Did you have a drink containing alcohol in the p ast year? No Points 0 Interpretation Negative Problems Problem Type SNOMED Code ICD Code Onset Dates Problem Status W/U Status Risk Notes Problem 5551537 Former smoker (Z87.891) Active confirmed He is highly motivated not to smoke. We discussed a plan to prevent relapse in times of stress and illness. Problem 700370146 Overweight (BMI 25.0-29.9) (E66.3) Active confirmed He has lo st 5 pounds and is now overweight with a body mass index of 29. We discussed his weight loss strategy and I reinforced continued weight loss through diet restricted in fat calories and sodium. Problem Obesity (887181600) Obesity (BMI 30.0-34.9) (E66.9) Active confirmed His body mass index is 31 with 243 pounds. We have reviewed his weight loss strategy. We have discussed diet and nutrition. I recommended he lose weight at a rate of one half up of a pound to a diet restricted in fat calories and sodium combined with regular exercise. Problem 29998430 Skin lesion (L98.9) Active confirmed He will call me in 3 weeks. If the lesion does not resolve he will be seen by a grinder set up operator centerless. Problem 59026397 Simple chronic bronchitis (J41.0) Active confirmed Problem 95118878 Chronic obstructive pulmonary disease, unspecified COPD type (J44.9) Active confirmed He will continu e to see the armored vehicle officer regularly. The 6 mm pulmonary nodule will be followed carefully. He will refrain from smoking. He will exercise regularly. He will continue to use his nebulizer and his new inhaler. Problem Benign prostatic hypertrophy (068215488) Benign prostatic hypertrophy (N40.0) Active confirmed He has been rising from sleep once a night to urinate. We discussed lifestyle modifications he could make to reduce this nocturia. Problem 048042997 Gastroesophageal reflux disease without esophagitis (K21.9) Active confirmed His symptoms ar e well-controlled with current regimen. No change was necessary today. Problem 032815470 History of appendectomy (Z90.49) Active confirmed This was done a t the age of 7. 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 Problem 349166037 Pulmonary nodule less than 6 mm determined by computed tomography of lung (R91.1) Active confirmed The 6 mm left lower lobe nodule is stable on a CT scan done in January of this year. He will have an annual CT scan. Vital Signs Heart Rate 51 /min 11/05/2024 Temperature 98.4 degrees Fahrenheit 11/05/2024 Blood pressure diastolic 73 mm Hg 11/05/2024 Height 74 in 11/05/2024 Blood pressure systolic 135 mm Hg 11/05/2024 Weight 228 lbs 11/05/2024 BMI 29.27 kg/m2 11/05/2024 Encounters Encounter Location Date Provider Diagnosis Thaddeus Oreilly III, MD [address] [place] [address] [place] [address] 02/01/2024 Thaddeus Oreilly Benign prostatic hypertrophy N40.0 ; Obesity (BMI 30.0-34.9) E66.9 ; Gastroesophageal reflux disease without esophagitis K21.9 ; Chronic obstructive pulmonary disease, unspecified COPD type J44.9 and Former smoker Z87.891 Thaddeus Oreilly III, MD [address] [place] [address] [place] [address] 05/14/2024 Thaddeus Oreilly Gastroesophageal ref lux disease without esophagitis K21.9 ; Chronic obstructive pulmonary disease, unspecified COPD type J44.9 ; Former smoker Z87.891 ; Pulmonary nodule less than 6 mm determined by computed tomography of lung R91.1 and Benign prostatic hypertrophy N40.0 Thaddeus Oreilly III, MD [address] [place] [address] [place] [address] 08/13/2024 Thaddeus Oreilly Benign prostatic hypertrophy N40.0 ; Chronic obstructive pulmonary disease, unspecified COPD type J44.9 ; Former smoker Z87.891 ; Gastroesophageal reflux disease without esophagitis K21.9 and Overweight (BMI 25.0-29.9) E66.3 Thaddeus Oreilly III, MD [address] [place] [address] DR RIVERA, [place]ONATHAN [address] 11/05/2024 Thaddeus Oreilly History of appendect lyndsey Z90.49 ; Chronic obstructive pulmonary disease, unspecified COPD type J44.9 ; Former smoker Z87.891 ; Gastroesophageal reflux disease without esophagitis K21.9 ; Benign prostatic hypertrophy N40.0 and Overweight (BMI 25.0-29.9) E66.3 Assessments Encounter Date Diagnosis (ICD Code) Assessment Notes Treat ment Notes Treatment Clinical Notes 02/01/2024 Obesity (BMI 30.0-34.9) (ICD-10 - E66.9) [...] J44.9) He will continue to see the armored vehicle officer regularly. The 6 mm pulmonary nodule will [...] J44.9) He will continue to see the armored vehicle officer regularly. The 6 mm pulmonary nodule will be followed carefully. He will refrain from smoking. He will exercise regularly. He will continue to use his nebulizer and his new inhaler. 08/13/2024 Benign prostatic hypertrophy (ICD-10 - N40.0) He has been rising from sleep once a night to urinate. We discussed lifestyle modifications he could make to reduce this nocturia. 11/05/2024 Chronic obstructive pulmonary disease, unspecified COPD type (ICD-10 - J44.9) He will continue to see the armored vehicle officer regularly. The 6 mm pulmonary nodule will be followed carefully. He will refrain from smoking. He will exercise regularly. He will continue to use his nebulizer and his new inhaler. 11/05/2024 History of appendectomy (ICD-10 - Z90.49) This was done at the age of 7. 02/01/2024 Gastroesophageal reflux disease without esophagitis (ICD-10 [...] relapse in times of stress and illness. 11/05/2024 Former smoker (ICD-1 0 - Z87.891) He is highly motivated not to smoke. We discussed a plan to prevent relapse in times of stress and illness. 02/01/2024 Chronic obstructive pulmonary disease, unspecified COPD type (ICD-10 - J44.9) He will continue to see the armored vehicle officer regularly. The 6 mm pulmonary nodule will [...] current regimen. No change was necessary today. 11/05/2024 Gastroesophageal reflux disease without esophagitis (ICD-10 - [...] diet restricted in fat calories and sodium. 11/05/2024 Benign prostatic hypertrophy (ICD-10 - N40.0) He has been rising from sleep once a night to urinate. We discussed lifestyle modifications he could make to reduce this nocturia. 11/05/2024 Overweight (BMI 25.0-29.9) (ICD-10 - E66.3) He has lost 5 pounds and is now overweight with a body mass index of 29. We discussed his weight loss strategy and I reinforced continued weight loss through diet restricted in fat calories and sodium. Plan Of Treatment Pending Test Test Name Order Date PROFILE, FASTING (COMPREHENSIVE METABOLI C) 03/31/2022 PROFILE, FASTING (COMPREHENSIVE METABOLI C) 12/02/2021 PROFILE, FASTING (COMPREHENSIVE METABOLI C) 11/05/2024 PROFILE, FASTING (COMPREHENSIVE METABOLI C) 10/15/2020 PROFILE, FASTING (COMPREHENSIVE METABOLI C) 08/13/2024 PROFILE, RANDOM (COMPREHENSIVE METABOLIC ) 09/02/2021 LIPID PANEL 12/02/2021 LIPID PANEL 09/02/2021 LIPID PANEL 10/15/2020 PSA, TOTAL 10/15/2020 PSA, TOTAL 03/31/2022 PSA, TOTAL 12/02/2021 PSA, TOTAL 11/05/2024 PSA, TOTAL 09/02/2021 PSA, TOTAL 08/13/2024 CBC w DIFF 09/02/2021 CBC w DIFF 10/15/2020 CBC w DIFF 03/31/2022 CBC w DIFF 12/02/2021 CBC w DIFF 11/05/2024 XR CHEST 2 VIEW PA & LAT 05/22/2018 XR CHEST 2 VIEW PA & LAT 03/12/2020 Echocardiogram 05/22/2018 PFT with DLCO 04/04/2020 CBC WITH AUTO DIFF 08/13/2024 Lipid Panel 11/05/2024 Lipid Panel 08/13/2024 Lipid Panel 03/31/2022 Next Appt Details Provider Name:Thaddeus Oreilly, 03/13/2025 03:00:00 PM, [address] [facility] [address], [place], [address], Provider Name:Thaddeus Oreilly, 11/06/2025 03:00:00 PM, [address] [facility] [address], [place], [address], Insurance Providers Payer Name Payer Address Payer Phone Subscriber Number Group Number Insured Name Patient Relationship to Insured Coverage Start Date Coverage End Date MEDICARE NGS [address] [place] [address] [id number] CURT WOODS Self - patient is the insured MEDICA[place] [address] [facility] [id number] [phone] [id number] CURT WOODS Self - patient is the insured Medical (General) History Medical History History ICD Code COPD Emphysema Diffusion defect 6 mm pulmonary nodule November 2021 Obesity Benign prostatic hypertrophy Glaucoma Former smoker GERD Surgical History Surgery Date(Month/Year) appendectomy age 7 No history Hospitalization History Reason Date(Month/Year) No history
--- OUTSIDE RECORDS SUMMARY | 2024-11-26 18:20 | XMS_ITS ---
Author Organization Thaddeus Oreilly III, MD Address [address] [place] [address] [place] [address] Care Team Providers Care Medicine Aide Name Role Phone Thaddeus Oreilly Primary Care Provider [phone] Allergies Allergen (clinical drug ingredient) Drug/Non Drug [...] Omeprazole 20 MG TAKE 1 CAPSULE [facility] DAY 30 MINUTES BEFORE BREAKFAST Active [...] Date Provider Diagnosis Thaddeus Oreilly III, MD [address] [place] [address] DR RIVERA, [place]ON[place] [address] 08/13/2024 Thaddeus Oreilly Benign prostatic hypertrophy N40.0 [...] J44.9) He will continue to see the hand upper and bottom lacer regularly. The 6 mm pulmonary nodule will [...] Omeprazole 20 MG TAKE 1 CAPSULE BY [facility] EVERY DAY 30 MINUTES BEFORE BREAKFAST Roflumilast 500 MCG 1 tablet Orally Once a day Montelukast Sodium 10 MG TAKE 1 TABLET B Y MOUTH AT BEDTIME Diagnosis Unavailable Oral Pending Test Test Name Order Date PROFILE, FASTING (COMPREHENSIVE METABOLI C) 08/13/2024 PSA, TOTAL 08/13/2024 CBC WITH AUTO DIFF 08/13/2024 Lipid Panel 08/13/2024 Next Appt Details Follow Up: As Scheduled, [facility] visit on November 05, Reason: OV, Annual Checkup Provider Name:Thaddeus Oreilly, 03/13/2025 03:00:00 PM, [address] [place] [address] [address], [place], [address], Provider Name:Thaddeus Langstonrne, 11/06/2025 03:00:00 PM, [address] [place] [address] [address], [place], [address], Progress Notes * WOODSCURTDOB:1950 (73 yo M)Acc No.[id number]:08/13/2024 Progress Notes Patient:?WOODSCURT Provider:?Thaddeus Oreilly MD :1950???Age:73 Y???Sex:Male Thomas e:08/13/2024 Address:[address] [place], [place] [phone] Subjective: * Chief Complaints: * ???GERDCOPDBenign prostatic [...] smoker ???He was born and raised in [facility]. 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 His father was a digital account manager. * Medications:?TakingVentolin HFA 108 (90 Base) [...] Date & Time - 08/10/2024 01:10 PM)?ValueReference Range?Eskqsl118015-604 - mmol/L?Bilirubin Total0.60.0-1.0 - mg/dL?Aspartate Amino Ctaaoauqbnf088-61 - U/L?Alanine Usewhapkzfekjcxy323-59 - U/L?Total Protein7.66.5-8.0 - g/dL?Albumin Level4.33.5-5.0 - g/dL?Alkaline Ejmqzlrfhoj0053-751 - U/L?Potassium5.03.3-5.1 - mmol/L?Xbgahmue235 96-108 - mmol/L?Carbon Uhxhggd3866-27 - mmol/L?Anion Oas33W85-38 - ?Blood Urea Fjlexvjc67U0-32 - mg/dL?Creatinine1.150.5-1.4 - mg/dL ?Estimated Glomerular Filt Rate> 60-?Glucose Wnyjcj07503-452 - mg/dL?Gxplimc17.08.4-10.2 - mg/dL * Examination: ???General Examination: ?GENERAL [...] (Primary)???Notes :He will continue to see the hand upper and bottom lacer regularly. The 6 mm pulmonary nodule will [...] the most.? * Follow Up:?As Scheduled, [facility] visit on November 05 (Reason: OV, Annual Checkup) * Images: * Sign off status: Completed true * Provider:?Thaddeus Oreilly MD Date:?05/2024 Generated for Hayden wiley/Shawn/Deshawnitting on:?11/26/2024 06:19 PM EDT History and Physical Notes * HPI (History of Present Illness) Category Sub-Category Detail Notes COVID-19 Screening Questions Have you had any new onset fever, chills, cough, congestion, sore throat, shortness of breath, muscle aches?: No Have you been exposed to the virus withi n the last 10 days?: No Have you travelled internationally in [facility] last 10 days?: No Have you [...]
--- OUTSIDE RECORDS SUMMARY | 2024-11-26 18:20 | XMS_ITS ---
Author Organization Thaddeus Oreilly III, MD Address [address] [place] [id number] Care Team Providers Care Patient Accounts Clerk Name Role Phone Thaddeus Oreilly Primary Care Provider Allergies Allergen (clinical drug ingredient) Drug/Non Drug Allergy documented on EMR Reaction Allergy Type Onset Date Status No Known Drug Allergy Unknown Drug Allergy Active REASON FOR VISIT annual exam Medications Medication SIG (Take, Route, Frequency, Duration) Notes Start Date End Date Status Roflumilast 500 MCG 1 tablet Orally Once a day Active Omeprazole 20 MG TAKE 1 CAPSULE BY [facility] EVERY DAY 30 MINUTES BEFORE BREAKFAST Active Montelukast Sodium 10 MG TAKE 1 TABLET B Y MOUTH AT BEDTIME Diagnosis Unavailable Oral Active Ventolin HFA 108 (90 Base) MCG/ACT INHALE 2 PUFFS INTO THE LUNGS EVERY 6 HOURS Active Albuterol Sulfate (2.5 MG/3ML) 0.083% INHALE 3 ML TWICE DAILY WITH NEBULIZER Inhalation Active Social History Tobacco Use: Social History [...] Problem Status W/U Status Risk Notes Problem [id number] Overweight (BMI 25.0-29.9) (E66.3) Active confirmed He has lost 5 pounds and is now overweight with a body mass index of 29. We discussed his weight loss strategy and I reinforced continued weight loss through diet restricted in fat calories and sodium. Vital Signs Temperature 98.4 degrees Fahrenheit 11/06/19 25 Blood pressure systolic 135 mm Hg 11/06/19 25 Blood pressure diastolic 73 mm Hg 025 Heart Rate 51 /min 11/05/2024 Height 74 in 11/05/2024 Weight 228 lbs 11/05/2024 BMI 29.27 kg/m2 11/05/2024 Encounters Encounter Location Date Provider Diagnosis Thaddeus Oreilly III, MD [address] [place] [address] [address] [place], [place] [id number] 11/05/2024 Thaddeus Oreilly History of appendect lyndsey Z90.49 ; Chronic obstructive pulmonary disease, unspecified COPD type J44.9 ; Former smoker Z87.891 ; Gastroesophageal reflux disease without esophagitis K21.9 ; Benign prostatic hypertrophy N40.0 and Overweight (BMI 25.0-29.9) E66.3 Assessments Encounter Date Diagnosis (ICD Code) Assessment Notes Treat ment Notes Treatment Clinical Notes 11/05/2024 History of appendectomy (ICD-10 - Z90.49) This was done at the age of 7. 11/05/2024 Chronic obstructive pulmonary disease, unspecified COPD type (ICD-10 - J44.9) He will continue to see the medical appointment scheduler regularly. The 6 mm pulmonary nodule will be followed carefully. He will refrain from smoking. He will exercise regularly. He will continue to use his nebulizer and his new inhaler. 11/05/2024 Former smoker (ICD-1 0 - Z87.891) He is highly motivated not to smoke. We discussed a plan to prevent relapse in times of stress and illness. 11/05/2024 Gastroesophageal reflux disease without esophagitis (ICD-10 - K21.9) His symptoms are well-controlled with current regimen. No change was necessary today. 11/05/2024 Benign prostatic hypertrophy (ICD-10 - N40.0) [...] MCG 1 tablet Orally Once a day Omeprazole 20 MG TAKE 1 CAPSULE BY [facility] EVERY DAY 30 MINUTES BEFORE BREAKFAST Montelukast Sodium 10 MG TAKE 1 TABLET B Y MOUTH AT BEDTIME Diagnosis Unavailable Oral Ventolin HFA 108 (90 Base) MCG/ACT INHALE 2 PUFFS INTO THE LUNGS EVERY 6 HOURS Albuterol Sulfate (2.5 MG/3ML) 0.083% INHALE 3 ML TWICE DAILY WITH NEBULIZER Inhalation Pending Test Test Name Order Date PROFILE, FASTING (COMPREHENSIVE METABOLI C) 11/05/2024 PSA, TOTAL 11/05/2024 CBC w DIFF 11/05/2024 Lipid Panel 11/05/2024 Next Appt Details Follow Up: 4 Months, Not spe cified, Reason: OV, Provider Name:Thaddeus Oreilly, 03/13/2025 03:00:00 PM, [address] [place] [address] [address], [place], [phone], Provider Name:Thaddeus Oreilly, 11/06/2025 03:00:00 PM, [address] [place] [address] [address], [place], [phone], Progress Notes * CURT WOODSDOB:1950 (74 yo M)Acc No.[id number]:11/05/2024 Progress Notes Patient:?CURT WOODS Provider:?Thaddeus Oreilly MD :1950???Age:74 Y???Sex:Male Thomas e:11/05/2024 Address:[address] [place] [address] RAMUHelen EST[place]as [id number] Subjective: * Chief Complaints: * ???Annual exam * HPI: ???Depression Screening:?copd good some days, gerd cpntrp;;[place] 2[place] [facility] [place] ?PHQ-9?Little interest or pleasure in doing things?Not at all ?Feeling down, depressed, or hopeless?Several days ?Trouble falling or staying asleep, or sleeping too much?More than half the days ?Feeling tired or having little energy?Several days ?Poor appetite or overeating?Not at all ?Feeling bad about yourself or that you are a failure, or have let yourself or your family down?Not at all ?Trouble concentrating on things, such as reading the newspaper or watching television?Several days ?Moving or speaking so slowly that other people could have noticed; or the opposite, being so fidgety or restless that you have been moving around a lot more than usual?Several days ?Thoughts that you would be better off or of hurting yourself in some way?Not at all ?Total Score?6 ?Interpretation?Mild Depression ???COVID-19 Screening:?Questions?Have you had any new onset fever, chills, cough, congestion, sore throat, shortness of breath, muscle aches??No ???Fall Risk Screening:?Fall History?Have you had any falls with injury in the past year??No ?Have you had two or more falls in the past year??No ?Fall Risk Assessment:?No falls in the past year ???SDOH Questions:?SDOH Questions?In the past year have you been worried about losing your housing??No ?In the past year have you or any family members you live with been unable to get any of the following when it was really needed? Check all that apply:?None ???:? The 74-year-old male patient reports that he is generally doing well, taking each day as it comes. He has a history of COPD, for which he uses an inhaler and occasionally a nebulizer. He also experiences heartburn, which he manages with daily medication. He has been taken off a salt pill recently. The patient reports waking up two to three times a night to urinate, which is consistent with his usual pattern. He has not noticed any worsening of his symptoms. The patient also mentions a weight loss of 5 lbs since his last visit in August. He had some blood work done recently, the results of which were discussed during the visit. * ROS:?General/Constitutional:?pain?only normal aches and pains.?Chills?denies.?Fatigue?admits.?Fever?denies.?ENT:?Decreased hearing?mild.?Respiratory:?Cough?denies.?Cardiovascular:?Chest pain with exertion?denies.?Dyspnea on exertion?denies.?Shortness of breath?denies.?Gastrointestinal:?Constipation?occasional.?Decreased appetite?denies.?Diarrhea?denies.?Heartburn?occasional.?Nausea?denies.?Rectal bleeding?denies.?Vomiting?denies.?Hematology:?bruising?denies.?petechiae?denies.?Swollen glands?none have been noted.?Genitourinary:?Frequent urination?once a [...] or mental illness. * Social History:?Tobacco Use:?Tobacco Control (Standard)?Tobacco use:?Former smoker ?How long has it been since you last smoked??Greater than 10 years ?Additional Findings: Tobacco non-user?Ex-cigarette smoker ???Drugs/Alcohol:?Drugs?Have you used drugs other than those for medical reasons in the past 12 months??No ???Drug/Alcohol:?AUDIT-C (Standard)?Did you have a drink containing alcohol in the past year??No ?Points?0 ?Interpretation?Negative ???He was born and raised in [place]. 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 His father was a aerosol line operator. * Medications:?TakingOmeprazol e 20 MG Capsule Delayed Release TAKE 1 CAPSULE BY MOUTH EVERY DAY 30 MINUTES BEFORE BREAKFAST Montelukast Sodium 10 MG Tablet TAKE 1 TABLET BY MOUTH AT BEDTIME Diagnosis Unavailable Oral Ventolin HFA 108 (90 Base) MCG/ACT Aerosol Solution INHALE 2 PUFFS INTO THE LUNGS EVERY 6 HOURS Albuterol Sulfate (2.5 MG/3ML) 0.083% Nebulization Solution INHALE 3 ML TWICE DAILY WITH NEBULIZER Inhalation Taking Omeprazole 20 MG Capsule Delayed Release TAKE 1 CAPSULE BY MOUTH EVERY DAY 30 MINUTES BEFORE BREAKFAST Taking Montelukast Sodium 10 MG Tablet TAKE 1 TABLET BY MOUTH AT BEDTIME Diagnosis Unavailable Oral Taking Ventolin HFA 108 (90 Base) MCG/ACT Aerosol Solution INHALE 2 PUFFS INTO THE LUNGS EVERY 6 HOURS Taking Albuterol Sulfate (2.5 MG/3ML) 0.083% Nebulization Solution INHALE 3 ML TWICE DAILY WITH NEBULIZER Inhalation DiscontinuedRoflumilast 500 MCG Tablet 1 tablet Orally Once a day Medication List reviewed and reconciled with the patientDiscontinued Roflumilast 500 MCG Tablet 1 tablet Orally Once a day Medication List reviewed and reconciled with the patient * Allergies:?No Known Drug All ergyno[Allergies Verified] Objective: * Vitals:?Ht: 74, Wt:228, BMI: 29.27, BP:135/73, HR:51, Temp:98.4, Wt-k.42. * ???Past Orders: Lab:Prostate Specific Antige n * Collection Date 10/31/2024 08/10/2024 02/01/2024 Collection Time 11:34 AM 01:10 PM 12:57 PM 01:40 PM Order Date 10/31/2024 08/10/2024 02/01/2024 02/02/2023 Prostate Specific Antigen 3.92 (Ref Range: <0.05-4.0 ng/mL) 4.00 (Ref Range: <0.05-4.0 ng/mL) 3.48 (Ref Range: <0.05-4.0 ng/mL) 5.04?H (Ref Range: <0.05-4.0 ng/mL) ???Lab:Comprehensive Met. Panel (Order Date - 08/10/2024) (Collection Date & Time - 08/10/2024 01:10 PM)?ValueReference Range?Zvuvgs684589-202 - mmol/L?Bilirubin Total0.60.0-1.0 - mg/dL?Aspartate Amino Tucxfjzrjaz396-83 - U/L?Alanine Jqmprmuqrxxedfwg647-19 - U/L?Total Protein7.66.5-8.0 - g/dL?Albumin Level4.33.5-5.0 - g/dL?Alkaline Havimqizsgx0929-130 - U/L?Potassium5.03.3-5.1 - mmol/L?Fwnrungf572 96-108 - mmol/L?Carbon Esxipgm1533-73 - mmol/L?Anion Nsk49V10-69 - ?Blood Urea Giroflse95N2-66 - mg/dL?Creatinine1.150.5-1.4 - mg/dL ?Estimated Glomerular Filt Rate> 60-?Glucose Xdffwt47397-832 - mg/dL?Qumochm57.08.4-10.2 - mg/dL * Lab:Complete Blood Count Aut o Diff * Collection Date 10/31/2024 08/10/2024 02/01/2024 Collection Time 11:34 AM 01:10 PM 12:57 PM 02:20 PM Order Date 10/31/2024 08/10/2024 02/01/2024 07/27/2023 White Blood Count 7.8 (Ref Range: 4.8-10.8 X10*3/uL) 9.6 (Ref Range: 4.8-10.8 X10*3/uL) 10.4 (Ref Range: 4.8-10.8 X10*3/uL) 9.5 (Ref Range: 4.8-10.8 X10*3/uL) Red Blood Count 5.26 (Ref Range: 4.60-5.80 X10*6/uL) 5.02 (Ref Range: 4.60-5.80 X10*6/uL) 5.08 (Ref Range: 4.60-5.80 X10*6/uL) 5.13 (Ref Range: 4.60-5.80 X10*6/uL) Hemoglobin 16.0 (Ref Range: 14.0-18.0 g/dl) 15.3 (Ref Range: 14.0-18.0 g/dl) 15.8 (Ref Range: 14.0-18.0 g/dl) 15.6 (Ref Range: 14.0-18.0 g/dl) Hematocrit 48.1 (Ref Range: 42.0-52.0 %) 46.2 (Ref Range: 42.0-52.0 %) 47.3 (Ref Range: 42.0-52.0 %) 47.2 (Ref Range: 42.0-52.0 %) Mean Corpuscular Volume 91.4 (Ref Range: 80.0-98.0 fL) 92.0 (Ref Range: 80.0-98.0 fL) 93.1 (Ref Range: 80.0-98.0 fL) 92.0 (Ref Range: 80.0-98.0 fL) Mean Corpuscular Hemoglobin 30.4 (Ref Range: 27.0-33.0 pg) 30.5 (Ref Range: 27.0-33.0 pg) 31.1 (Ref Range: 27.0-33.0 pg) 30.4 (Ref Range: 27.0-33.0 pg) Mean Corpuscular HGB Conc 33.3 (Ref Range: 31.0-36.0 g/dl) 33.1 (Ref Range: 31.0-36.0 g/dl) 33.4 (Ref Range: 31.0-36.0 g/dl) 33.1 (Ref Range: 31.0-36.0 g/dl) Red Cell Distribution Width 13.5 (Ref Range: 11.0-16.0 %) 13.5 (Ref Range: 11.0-16.0 %) 13.5 (Ref Range: 11.0-16.0 %) 13.2 (Ref Range: 11.0-16.0 %) Platelet Count 283 (Ref Range: 160-400 X10*3/uL) 298 (Ref Range: 160-400 X10*3/uL) 308 (Ref Range: 160-400 X10*3/uL) 313 (Ref Range: 160-400 X10*3/uL) Mean Platelet Volume 9.0?L (Ref Range: 9.4-12.4 fL) 9.4 (Ref Range: 9.4-12.4 fL) 9.0?L (Ref Range: 9.4-12.4 fL) 9.1?L (Ref Range: 9.4-12.4 fL) Neutrophils Percent Auto 72.2 (Ref Range: 45-73 %) 72.2 (Ref Range: 45-73 %) 71.7 (Ref Range: 45-73 %) 69.5 (Ref Range: 45-73 %) Imm Gran Pct Auto 0.3 (Ref Range: 0.0-0.4 %) 0.3 (Ref Range: 0.0-0.4 %) 0.4 (Ref Range: 0.0-0.4 %) 0.3 (Ref Range: 0.0-0.4 %) Lymphocytes Percent Auto 14.2?L (Ref Range: 20-40 %) 15.7?L (Ref Range: 20-40 %) 14.3?L (Ref Range: 20-40 %) 15.2?L (Ref Range: 20-40 %) Monocytes Percent Auto 11.5?H (Ref Range: 2-11 %) 10.4 (Ref Range: 2-11 %) 11.0 (Ref Range: 2-11 %) 12.2?H (Ref Range: 2-11 %) Eosinophils Percent Auto 1.0 (Ref Range: 0-4 %) 0.6 (Ref Range: 0-4 %) 1.8 (Ref [...] (Ref Range: 0.0-0.2 /100WBC) Neutrophils Absolute Auto 5.7 (Ref Range: 2.0-8.3 x10*3/uL) 6.9 (Ref Range: 2.0-8.3 x10*3/uL) 7.4 (Ref Range: 2.0-8.3 x10*3/uL) 6.6 (Ref Range: 2.0-8.3 x10*3/uL) Imm Gran Abs Auto 0.02 (Ref Range: 0.00-0.03 X10*3/uL) 0.03 (Ref Range: 0.00-0.03 X10*3/uL) 0.04?H (Ref Range: 0.00-0.03 X10*3/uL) 0.03 (Ref Range: 0.00-0.03 X10*3/uL) Lymphocytes Absolute Auto 1.1?L (Ref Range: 1.2-4.9 X10*3/uL) 1.5 (Ref Range: 1.2-4.9 X10*3/uL) 1.5 (Ref Range: 1.2-4.9 X10*3/uL) 1.5 (Ref Range: 1.2-4.9 X10*3/uL) Monocytes Absolute Auto 0.9 (Ref Range: 0.1-1.2 X10*3/uL) 1.0 (Ref Range: 0.1-1.2 X10*3/uL) 1.1 (Ref Range: 0.1-1.2 X10*3/uL) 1.2 (Ref Range: 0.1-1.2 X10*3/uL) Eosinophils Absolute Auto 0.1 (Ref Range: 0.0-0.4 X10*3/uL) 0.1 (Ref Range: 0.0-0.4 X10*3/uL) 0.2 (Ref Range: 0.0-0.4 X10*3/uL) 0.2 (Ref Range: 0.0-0.4 X10*3/uL) Basophils Absolute Auto 0.1 (Ref Range: 0.0-0.2 X10*3/uL) 0.1 (Ref Range: 0.0-0.2 X10*3/uL) 0.1 (Ref Range: 0.0-0.2 X10*3/uL) 0.1 (Ref Range: 0.0-0.2 X10*3/uL) NRBC Abs Auto 0.000 (Ref Range: 0.0-0.012 X10*3/uL) 0.000 (Ref Range: 0.0-0.012 X10*3/uL) 0.000 (Ref Range: 0.0-0.012 X10*3/uL) 0.000 (Ref Range: 0.0-0.012 X10*3/uL) * Lab:Yen sousa Fast * Collection Date 10/31/2024 02/01/2024 07/27/2023 Collection Time 11:34 AM 12:59 PM 02:20 PM Order Date 10/31/2024 02/01/2024 07/27/2023 Sodium 139 (Ref Range: 135-145 mmol/L) 139 (Ref Range: 135-145 mmol/L) 139 (Ref Range: 135-145 mmol/L) Bilirubin Total 0.8 (Ref Range: 0.0-1.0 mg/dL) 0.5 (Ref Range: 0.0-1.0 mg/dL) 0.4 (Ref Range: 0.0-1.0 mg/dL) Aspartate Amino Transferase 31 (Ref Range: 5-37 U/L) 31 (Ref Range: 5-37 U/L) 26 (Ref Range: 5-37 U/L) Alanine Aminotransferase 35 (Ref Range: 0-40 U/L) 40 (Ref Range: 0-40 U/L) 34 (Ref Range: 0-40 U/L) Total Protein 7.6 (Ref Range: 6.5-8.0 g/dL) 7.5 (Ref Range: 6.5-8.0 g/dL) 7.8 (Ref Range: 6.5-8.0 g/dL) Albumin Level 4.2 (Ref Range: 3.5-5.0 g/dL) 4.3 (Ref Range: 3.5-5.0 g/dL) 4.4 (Ref Range: 3.5-5.0 g/dL) Alkaline Phosphatase 96 (Ref Range: 39-117 U/L) 96 (Ref Range: 39-117 U/L) 98 (Ref Range: 39-117 U/L) Potassium 4.4 (Ref Range: 3.3-5.1 mmol/L) 5.5?H (Ref Range: 3.3-5.1 mmol/L) 5.1 (Ref Range: 3.3-5.1 mmol/L) Chloride 106 (Ref Range: 96-108 mmol/L) 108 (Ref Range: 96-108 mmol/L) 107 (Ref Range: 96-108 mmol/L) Carbon Dioxide 25 (Ref Range: 22-29 mmol/L) 23 (Ref Range: 22-29 mmol/L) 26 (Ref Range: 22-29 mmol/L) Anion Gap 12 (Ref Range: 12-20) 14 (Ref Range: 12-20) 11?L (Ref Range: 12-20) Blood Urea Nitrogen 20?H (Ref Range: 9-16 mg/dL) 23?H (Ref Range: 9-16 mg/dL) 19?H (Ref Range: 9-16 mg/dL) Creatinine 0.97 (Ref Range: 0.5-1.4 mg/dL) 1.20 (Ref Range: 0.5-1.4 mg/dL) 1.20 (Ref Range: 0.5-1.4 mg/dL) Estimated Glomerular Filt Rate > 60 59 59 Glucose Fasting 93 (Ref Range: 60-99 mg/dL) 104?H (Ref Range: 60-99 mg/dL) 110?H (Ref Range: 60-99 mg/dL) Calcium 9.6 (Ref Range: 8.4-10.2 mg/dL) 9.7 (Ref Range: 8.4-10.2 mg/dL) 9.9 (Ref Range: 8.4-10.2 mg/dL) * Lab:Lipid Panel * Collection Date 10/31/2024 02/01/2024 07/27/2023 Collection Time 11:34 AM 12:59 PM 02:20 PM Order Date 10/31/2024 02/01/2024 07/27/2023 Triglycerides 197?H (Ref Range: <150 mg/dL) 205?H (Ref Range: <150 mg/dL) 141 (Ref Range: <150 mg/dL) Cholesterol 197 (Ref Range: <200 mg/dL) 210?H (Ref Range: <200 mg/dL) 212?H (Ref Range: <200 mg/dL) LDL Cholesterol Calculated 122?H (Ref Range: <100 mg/dL) 126?H (Ref Range: <100 mg/dL) 142?H (Ref Range: <100 mg/dL) HDL Cholesterol 36?L (Ref Range: >40 mg/dL) 43 (Ref Range: >40 mg/dL) 42 (Ref Range: >40 mg/dL) * Examination: ???General Examination: ?GENERAL APPEARANCE:?pleasant, well nourished, well developed, in no acute distress, calm and relaxed, overweight, man.?HEAD:?atraumatic, normocephalic.?EYES:?eomi, perrla, anicteric, conjugate.?EARS:?normal.?NOSE:?septum intact.?ORAL CAVITY:?normal, unremarkable.?NECK/THYROID:?no jugular venous distention, no carotid bruit, thyroid normal.?LYMPH NODES:?no enlarged lymph nodes,spleen normal.?SKIN:?no suspicious lesions, anicteric.?HEART:?no clicks, gallops, murmurs, or rubs, regular rhythm, S1, S2 normal, no s3, or vascular bruits.?LUNGS:?, diminished breath sounds throughout, no wheezes, rales, rhonchi, good air movement.?BREASTS:??no masses palpable bilaterally.?ABDOMEN:?bowel sounds [...] (Primary)???Notes :He will continue to see the medical appointment scheduler regularly. The 6 mm pulmonary nodule will be followed carefully. He will refrain from smoking. He will exercise regularly. He will continue to use his nebulizer and his new inhaler.???2.?History of appendectomy - Z90.49???Notes :This was done at the age of 7.???3.?Former smoker - Z87.891???Notes :He is highly motivated not to smoke. We discussed a plan to prevent relapse in times of stress and illness.???4.?Gastroesophageal reflux disease without esophagitis - K21.9???Notes :His symptoms are well-controlled with current regimen. No change was necessary today.???5.?Benign prostatic hypertrophy - N40.0???Notes :He has been rising from sleep once a night to urinate. We discussed lifestyle modifications he could make to reduce this nocturia.???6.?Overweight (BMI 25.0-29.9) - E66.3???Notes :He has lost 5 pounds and is now overweight with a body mass index of 29. We discussed his weight loss strategy and I reinforced continued weight loss through diet restricted in fat calories and sodium.??? Plan: * Treatment: 2.?Benign prostatic hypertro phy?LAB: PROFILE, FASTING (COMPREHENSIVE METABOLIC) ?LAB: PSA, TOTAL ?LAB: CBC w DIFF ?LAB: Lipid Panel 3.?Others? Continue Ventolin HFA Aerosol Solution, 108 (90 Base) MCG/ACT, INHALE 2 PUFFS INTO THE LUNGS EVERY 6 HOURS;?Continue Omeprazole Capsule Delayed Release, 20 MG, TAKE 1 CAPSULE BY MOUTH EVERY DAY 30 MINUTES BEFORE BREAKFAST;?Continue Roflumilast Tablet, 500 MCG, 1 tablet, Orally, Once a day;?Continue Montelukast Sodium Tablet, 10 MG, TAKE 1 TABLET BY MOUTH AT BEDTIME Diagnosis Unavailable, Oral.?? * Procedure Codes:? * Preventive Medicine:? ??Counseling:?Care goal follow-up plan:?Counseling for abnormal BMI given?Yes ?Above Normal BMI Follow-up?Dietary management education, guidance, and counseling, Dietary needs education ?Smoking/Tobacco Use?Patient counseled on the dangers of tobacco use and urged to quit.?11/05/2024 ??COPD Care Plan:?Patient Lifestyle Goals?Relieve symptoms and improve quality of life, Reduce number of ED and hospitalizations, Be able to be more active with friends and family.?Treatment Goals?Eat a nutritious diet and increase water consumption to 6-8 glasses a day, Exercise to help whole body, including lungs.?Barriers?no barriers.?Self-Managment Goals?Get an air purifier for the rooms you are in the most, Eat a healthy diet, Exercise at least 3xs per week for at least 30 mins.? * Follow Up:?4 Months, Not spe cified (Reason: OV, ) * Images: * Sign off status: Completed true * Provider:?Thaddeus Oreilly MD Date:?11/2024 Generated for Hayden wiley/Shawn/Deshawnitting on:?11/26/2024 06:19 PM EDT History and Physical Notes * HPI (History of Present Illness) Category Sub-Category Detail Notes Depression Screening PHQ-9 Little inte rest or pleasure in doing things: Not at all Feeling down, depressed, or hopeless: Se veral days Trouble falling or staying a sleep, or sleeping too much: More than half the days Feeling tired or having little energy: S everal days Poor appetite or overeating: Not at all Feeling bad about yourself o r that you are a failure, or have let yourself or your family down: Not at all Trouble concentrating on thi ngs, such as reading the newspaper or watching television: Several days Moving or speaking so slowly that other people could have noticed; or the opposite, being so fidgety or restless that you have been moving around a lot more than usual: Several days Thoughts that you would be b artie off or of hurting yourself in some way: Not at all Total Score: 6 Interpretation: Mild Depression Fall Risk Screening Fall History Have you had any falls with injury in the past year?: No Have you had two or more falls in the year?: No Fall Risk Assessment:: No falls in the year COVID-19 Screening Questions Have you had any new onset fever, chills, cough, congestion, sore throat, shortness of breath, muscle aches?: No SDOH Questions SDOH Questions In the past year have you been worried about losing your housing?: No In the past year have you or any family members you live with been unable to get any of the following when it was really needed? Check all that apply:: None Examination Category Sub-Category Detail Notes General Examination [...] vascular bruits LUNGS: , diminished breath sounds throughout, no wheezes, rales, rhonchi, good air movement ABDOMEN: bowel sounds normal, [...]
== END 2024-11-26 16:08 | disposition home or self-care (01) ==
LOC: HO.HPS 15:29
PROVIDERS: PCP Internal Medicine Medical Oncology; Visit Provider Hospitalist
DX: R91.1 Solitary pulmonary nodule (principal); J44.1 Chronic obstructive pulmonary disease with (acute) exacerbation; R06.00 Dyspnea, unspecified
CPT/HCPCS: 99214

== ENCOUNTER → 2024-11-26 15:28 | Outpatient (BNVA) | payer MEDICARE, MEDICAID, SELFPAY | PROVIDERS: PCP Internal Medicine Medical Oncology; Visit Provider Hospitalist | DX: J44.1 Chronic obstructive pulmonary disease with (acute) exacerbation (principal); R91.1 Solitary pulmonary nodule; R06.00 Dyspnea, unspecified; Z87.891 Personal history of nicotine dependence | CPT/HCPCS: 99212 ==

== ENCOUNTER 2025-02-22 17:02 | Inpatient (IN) | payer MEDICARE, MEDICAID, SELFPAY ==
--- NOTE | ~2025-02-22 | CT_ITS ---
CLINICAL HISTORY: Urinary retention, elevated BUN Cr --- Additional Notes or Special Instructions: R O ureteral obstruction, enlarged prostate, hydronephrosis CT abdomen and pelvis without contrast Comparison: None provided Findings: Atelectasis. Thickening of the bilateral adrenal glands. 1.9 cm right adrenal gland nodule measuring 11 Hounsfield unit. Although this may reflect an adrenal adenoma, this may be further evaluated with biochemical assay and adrenal protocol imaging. Bilateral perinephric stranding, nonspecific. Mild bilateral hydroureteronephrosis with subcentimeter renal calculi, left more than right measuring no more than 5 mm. Fluid-filled colon with diffuse mural thickening, colitis not excluded. No bowel obstruction. Fat containing inguinal hernias. Scattered colonic diverticulosis without diverticulitis. Mojica catheter in the bladder, decompressed with scattered air anteriorly. Osteopenia with diffuse multilevel spondylosis. Diffuse atheromatous plaque disease throughout the aorta and branch vessels, without aneurysmal dilatation. IMPRESSION: 1. Mild bilateral hydroureteronephrosis with subcentimeter renal calculi, left more than right measuring no more than 5 mm. 2. Possible mildly diffuse colitis. This document has been electronically signed by: Cedric Taylor MD on 02/22/2025 22:32:33
--- NOTE | 2025-02-22 17:18 | ED_ITS ---
HPI - Male Genitourinary General Chief complaint: Urogenital-Male Stated complaint: Dr Quinonez sent over for cathater Time Seen by Provider: 02/22/25 17:45 Source: patient and other (Patient's PCP, Dr. Oreilly) Mode of arrival: ambulatory Limitations: no limitations History of Present Illness ED Provider: Dr. Francisco Blanton HPI Narrative: 74-year-old male with a history of COPD, obesity, benign prostatic hypertrophy, glaucoma, GERD who presents emergency department for evaluation of difficulty urinating for proximally 1 week. The patient states that he has been urinating frequently in small amounts. He states that he became incontinent of urine and was having lower abdominal pain therefore he contacted his PCP. Dr. Oreilly evaluated the patient in his office and felt that the patient had an enlarged bladder consistent with urinary retention so he brought the patient over to the emergency department for evaluation. Bedside ultrasound done by me revealed a large, distended bladder with estimated volume of 2.15 L of urine in his bladder. The patient denied fever, chills, nausea, vomiting. He states that he was feeling weak and fatigued. Related Data Home Medications ?Medication ?Instructions ?Recorded ?Confirmed omeprazole 20 mg capsule,delayed 20 mg PO DAILY@0630 1 09/13/19 02/22/25 release nebulizers 12/13/22 acetaminophen 325 mg tablet 650 mg PO Q6H PRN Pain 02/22/25 albuterol sulfate 90 mcg/actuation 2 puff inhalation Q ID PRN 02/22/25 02/22/25 aerosol inhaler (Ventolin HFA) shortness of breath or wheezing Previous Rx's ?Medication ?Instructions ?Recorded budesonide 0.5 mg/2 mL suspension 0.5 mg (2 mL) inhala tion BID 30 11/26/24 for nebulization days #120 mL ipratropium 0.5 mg-albuterol 3 mg 3 ml inhalation BID 30 days #180 mL 11/26/24 (2.5 mg base)/3 mL nebulization soln montelukast 10 mg tablet 10 mg PO BEDTIME 30 days #30 tabs 11/26/24 (Singulair) Allergies Allergy/AdvReac Type Severity Reaction Status Date / Time No Known Allergies Allergy Verified 02/22/25 17:23 Review of Systems 2 Review of Systems: Yes all other systems are reviewed and are negative [facility] Past Medical History Medical History Elevated PSA measurement Pulmonary nodule Personal history of nicotine dependence Dyspnea COPD (chronic obstructive pulmonary disease) Surgical History Hx of appendectomy Social History Social History Household Members: None Housing: House Patient Tobacco Use Status: Former Tobacco user Tobacco use type: Cigarette and Cigar Years Smoked: Since 12 years old Smoked in Last 30 Days: No Patient Interested in Nicotine Replacement: No Patient Given Instructions on How to Stop Smoking: No Second Hand Smoke Exposure: No Use of substances other than those prescribed or required for medical reasons: No Currently Displaying Signs/Symptoms of Drug Intoxication Withdrawal: No Have you been hit, kicked, punched, or otherwise hurt by someone within the past year? If so, by whom?: No Do you feel safe in your current relationship?: No Current Relationship Is there a partner from a previous relationship who is making you feel unsafe now?: No Are you made to feel afraid or neglected: No Advance Directives: No Advance Directives Information Provided: Yes (Info re:HCP) Advance Directives on File: No Do you have a plan to hurt others: No Plan Recently lost weight without trying: No Eating poorly because of decreased appetite: No Nutrition Risks: No Nutritional Risk Poor oral hygiene: No service: No Physical Exam 2 Vital Signs: Vital Signs: Last Vital Signs Temp 97.6 F 02/24/25 07:11 Pulse 89 02/24/25 08:13 Resp 18 02/24/25 08:13 BP 136/62 02/24/25 07:11 Pulse Ox 93 02/24/25 07:11 O2 Del Method Room Air 02/24/25 07:11 BMI result Body Mass Index 27.7 Vital signs revealed an elevated blood pressure of 143/45 otherwise unremarkable Exam: General: Awake, alert in no distress Head: Normocephalic, atraumatic EENT: PERRL, Lids normal, sclera normal, conjunctiva normal, nose normal , ears normal, throat without erythema or exudates Neck: Supple, no adenopathy Lung: breath sounds symmetric, no wheezing, rales or rhonchi Chest: symmetric movement, nontender Heart: regular rate and rhythm, normal S1, S2 no murmurs or rubs Abdomen: soft, markedly distended bladder with suprapubic tenderness, no rebound, no voluntary or involuntary guarding, normoactive bowel sounds Back: no vertebral tenderness, no CVAT Extremities: no deformities, moves all extremities symmetrically Neuro: Awake, alert, oriented, normal speech, cranial nerves intact, moves all extremities symmetrically Psych: Pleasant, cooperative Medications Administered Generic Name Dose Route Start Last Admin Trade Name Freq PRN Reason Stop Dose Admin Albuterol/Ipratropium 3 ml 02/23/25 20:00 02/24/25 08:11 Albuterol/Iprat 2.5/0.5mg 3 Ml Ampul.Neb INHALE 3 ml RBID LAWSON Administration Budesonide 0.5 mg 02/23/25 20:00 02/24/25 08:12 Budesonide 0.5 Mg/2 Ml Ampul.Neb INHALE 0.5 mg RBID LAWSON Administration Ceftriaxone Sodium 1 gm 02/23/25 21:00 02/23/25 21:05 Ceftriaxone Sodium 1 Gm Vial IVPUSH 1 gm Q24H LAWSON Administration Melatonin 6 mg 02/22/25 20:10 02/23/25 21:07 Melatonin 3 Mg Tablet PO 6 mg BEDTIME PRN Administration Insomnia Montelukast Sodium 10 mg 02/23/25 21:00 02/23/25 21:05 Montelukast Sodium 10 Mg Tablet PO 10 mg BEDTIME LAWSON Administration Omeprazole 20 mg 02/23/25 08:35 02/24/25 06:32 Omeprazole 20 Mg Capsule.Dr PO 20 mg DAILY@0630 LAWSON Administration Sodium Chloride 3 ml 02/23/25 00:00 02/23/25 21:05 0.9 % Sodium Chloride Flush 3 Ml Syringe IVFLUSH 3 ml QSHIFT LAWSON Administration Tamsulosin HCl 0.4 mg 02/23/25 09:00 02/23/25 08:58 Tamsulosin Hcl 0.4 Mg Capsule PO 0.4 mg DAILY LAWSON Administration Discontinued Medications Generic Name Dose Route Start Last Admin Trade Name Freq PRN Reason Stop Dose Admin Ceftriaxone Sodium 1 gm 02/22/25 19:39 02/22/25 20:11 Ceftriaxone Sodium 1 Gm Vial IVPUSH 02/22/25 19:40 1 gm ONCE ONE Administration Sodium Chloride 1,000 mls @ 999 mls/hr 02/22/25 19:40 02/22/25 21:20 Ns IV 02/22/25 20:40 Infused .Q1H1M STA Infusion Lactated Ringer's 1,000 mls @ 100 mls/hr 02/23/25 08:30 02/23/25 19:30 Lr IVCONT 02/23/25 18:29 Infused .Q10H LAWSON Infusion Ondansetron HCl 4 mg 02/23/25 22:58 02/24/25 04:53 Ondansetron Hcl 4 Mg/2 Ml Vial IVPUSH 02/23/25 22:59 Not Given ONCE ONE Tamsulosin HCl 0.4 mg 02/22/25 19:39 02/22/25 20:11 Tamsulosin Hcl 0.4 Mg Capsule PO 02/22/25 19:40 0.4 mg ONCE ONE Administration Medical Decision Making Medical Decision Making MDM Narrative: 74-year-old male with a history of COPD, obesity, benign prostatic hypertrophy, glaucoma, GERD who presents emergency department for evaluation of difficulty urinating for proximally 1 week. The patient states that he has been urinating frequently in small amounts. He states that he became incontinent of urine and was having lower abdominal pain therefore he contacted his PCP. Dr. Oreilly evaluated the patient in his office and felt that the patient had an enlarged bladder consistent with urinary retention so he brought the patient over to the emergency department for evaluation. Bedside ultrasound done by me revealed a large, distended bladder with estimated volume of 2.15 L of urine in his bladder. The patient denied fever, chills, nausea, vomiting. He states that he was feeling weak and fatigued. Vital signs revealed an elevated blood pressure otherwise unremarkable. Physical examination did reveal a distended bladder with suprapubic tenderness. Bedside ultrasound revealed an extended bladder with an estimated volume of 2.15 L of urine. Differential diagnosis: ?Includes but is not limited to urinary retention, prostatitis, urinary tract infection, obstructive process, acute kidney injury, anemia, electrolyte abnormalities Course: 20:00 My independent interpretation patient's laboratory evaluation is as follows: WBC elevated 15,300. Chloride elevated 109. Bicarb low 20. BUN and creatinine elevated 73 and 2.89. This has a significant change compared to a baseline on 10/31/2024 of BUN was 20 in creatinine and creatinine 0.97 suggested the patient has had acute injury. LFTs were normal. Lactic acid was normal 1.0. Urinalysis positive blood, positive leukocyte esterase. Microscopic revealed 6- 10 RBCs, 11-20 WBCs, 0 2 squamous cells, no bacteria. A 16 [place] Mojica catheter was placed by the patient's nurse and the patient drained a proximally 2.5 L of urine from his bladder. On my bedside ultrasound, the patient did have a markedly distended bladder with over 2 L of fluid as well as mild to moderate bilateral hydronephrosis, therefore I ordered a CT scan of the abdomen pelvis without IV contrast to further evaluate the patient's kidneys. Patient's urine did reveal a significant number of red blood cells and white blood cells but no bacteria. It is possible the patient may have a urinary tract infection or prostatitis. I did order ceftriaxone 1 g IV, normal saline IV x1 L and tamsulosin 0.4 mg orally. given the patient's elevated BUN and creatinine (most likely caused by urinary obstruction and volume depletion secondary to poor oral intake), I did discuss admission with the covering hospitalist and the patient will be admitted for further treatment. 23:45 CT scan of the abdomen pelvis revealed mild bilateral hydronephrosis and mild colitis. Admission/Observation Consideration of admission/observation: Escalation of care including admission/observation considered (Yes) Consult Healthcare Provider Management of the patient was discussed with: Primary Care Provider (Dr. Oreilly) Lab Data MDM Lab Attestation statement: I reviewed the patient's lab results. 02/23/25 06:25 02/24/25 08:23 Labs: Lab Results 02/22/25 02/22/25 Range/Units 18:32 18:33 WBC 15.3 H (4.8-10.8) X10*3/uL RBC 4.91 (4.60-5.80) X10*6/uL Hgb 15.1 (14.0-18.0) g/dl Hct 43.8 (42.0-52.0) % MCV 89.2 (80.0-98.0) fL MCH 30.8 (27.0-33.0) pg MCHC 34.5 (31.0-36.0) g/dl RDW 13.7 (11.0-16.0) % Plt Count 226 (160-400) X10*3/uL MPV 9.0 L (9.4-12.4) fL Immature Gran % (Auto) 0.5 H (0.0-0.4) % Neut % (Auto) 84.7 H (45-73) % Lymph % (Auto) 5.2 L (20-40) % [place] % (Auto) 8.8 (2-11) % Eos % (Auto) 0.3 (0-4) % Baso % (Auto) 0.5 (0-2) % Lymph # (Auto) 0.8 L (1.2-4.9) X10*3/uL [place] # (Auto) 1.4 H (0.1-1.2) X10*3/uL Eos # (Auto) 0.0 (0.0-0.4) X10*3/uL Baso # (Auto) 0.1 (0.0-0.2) X10*3/uL Abs Immat Gran (auto) 0.07 H (0.00-0.03) X10*3/uL Absolute Neuts (auto) 13.0 H (2.0-8.3) x10*3/uL Absolute Nucleated RBC 0.000 (0.0-0.012) X10*3/uL Nucleated RBC % (auto) 0.0 (0.0-0.2) /100WBC Sodium 142 (135-145) mmol/L Potassium 4.5 (3.3-5.1) mmol/L Chloride 109 H (96-108) mmol/L Carbon Dioxide 20 L (22-29) mmol/L Anion Gap 18 (12-20) BUN 73 H (9-16) mg/dL Creatinine 2.89 H (0.5-1.4) mg/dL Estim Creat Clear Calc 25.2 Estimated GFR 21 Random Glucose 91 (60-115) mg/dL Lactic Acid 1.0 (0.5-2.0) mmol/L Calcium 9.9 (8.4-10.2) mg/dL Magnesium 2.3 (1.6-2.6) mg/dL Total Bilirubin 0.6 (0.0-1.0) mg/dL Direct Bilirubin 0.3 (0.0-0.5) mg/dL AST 22 (5-37) U/L ALT 21 (0-40) U/L Alkaline Phosphatase 91 (39-117) U/L Total Protein 7.4 (6.5-8.0) g/dL Albumin 4.3 (3.5-5.0) g/dL Urine Color Yellow Urine Appearance Clear Urine pH 5.0 (5.0-9.0) Ur Specific [place] 1.020 (1.005-1.025) Urine Protein Negative (Neg-Trace) mg/dL Urine Glucose (UA) Negative (Negative) mg/dL Urine Ketones Trace (Negative) mg/dL Urine Blood Small (1+) H (Negative) Urine Nitrite Negative (Negative) Ur Leukocyte Esterase Moderate (2+) H (Negative) Urine RBC 6-10 H (0-2) /HPF Urine WBC 11-20 H (0-5) /HPF Ur Squamous Epith Cells 0-2 (0-2) /HPF Urine Bacteria None Seen (None Seen) Hyaline Casts 0-2 (0-2) /LPF Radiology Impression Discussion of test interpretation with radiology: I have reviewed the radiologist's reading. Radiologist Impression: CT abdomen and pelvis without contrast Comparison: None provided Findings: Atelectasis. Thickening of the bilateral adrenal glands. 1.9 cm right adrenal gland nodule measuring 11 Hounsfield unit. Although this may reflect an adrenal adenoma, this may be further evaluated with biochemical assay and adrenal protocol imaging. Bilateral perinephric stranding, nonspecific. Mild bilateral hydroureteronephrosis with subcentimeter renal calculi, left more than right measuring no more than 5 mm. Fluid-filled colon with diffuse mural thickening, colitis not excluded. No bowel obstruction. Fat containing inguinal hernias. Scattered colonic diverticulosis without diverticulitis. Mojica catheter in the bladder, decompressed with scattered air anteriorly. Osteopenia with diffuse multilevel spondylosis. Diffuse atheromatous plaque disease throughout the aorta and branch vessels, without aneurysmal dilatation. IMPRESSION: 1. Mild bilateral hydroureteronephrosis with subcentimeter renal calculi, left more than right measuring no more than 5 mm. 2. Possible mildly diffuse colitis. This document has been electronically signed by: Cedric Taylor MD on 02/22/2025 22:32:33 External Record Review External record reviewed: Office record Chronic Conditions Patient?s care impacted by: Other (COPD) Discharge Plan Discharge Clinical Impression: Acute urinary retention, Acute kidney injury, Urinary tract infection Patient Disposition: Admitted As Inpatient Interventions: Admission Worksheet (ED) Last Done: 02/22/25 21:41 Discharge Date/Time: 02/22/25 22:40
[2025-02-22 17:21] VITALS: BP 100/68; PULSE 113; RESP 20; TEMP 36.1; O2SAT 93; BMI 27.7
[2025-02-22 18:39] LABS: MANUAL DIFF FLAG NO
[2025-02-22 18:43] LABS: Appearance Urine Clear; Color Urine Yellow; Glucose Urine UA Negative (Negative); Leukocyte Esterase Urine Moderate (2+) (Negative); Nitrite Urine Negative (Negative); UMIC TRIGGER UACC YES; Urine Blood Small (1+) (Negative); Urine Ketones Trace mg/dL (Negative); Urine Protein Negative (Neg-Trace)
[2025-02-22 18:45] LABS: Basophils Absolute Auto 0.1 X10*3/uL (0.0-0.2); Basophils Percent Auto 0.5 % (0-2); Eosinophils Percent Auto 0.3 % (0-4); Hematocrit 43.8 % (42.0-52.0); Hemoglobin 15.1 g/dl (14.0-18.0); Imm Gran Abs Auto 0.07 X10*3/uL (0.00-0.03); Imm Gran Pct Auto 0.5 % (0.0-0.4); Lymphocytes Absolute Auto 0.8 X10*3/uL (1.2-4.9); Lymphocytes Percent Auto 5.2 % (20-40); Mean Corpuscular HGB Conc 34.5 g/dl (31.0-36.0); Mean Corpuscular Hemoglobin 30.8 pg (27.0-33.0); Mean Corpuscular Volume 89.2 fL (80.0-98.0); Monocytes Absolute Auto 1.4 X10*3/uL (0.1-1.2); Monocytes Percent Auto 8.8 % (2-11); Neutrophils Percent Auto 84.7 % (45-73); Platelet Count 226 X10*3/uL (160-400); Red Blood Count 4.91 X10*6/uL (4.60-5.80); Red Cell Distribution Width 13.7 % (11.0-16.0); White Blood Count 15.3 X10*3/uL (4.8-10.8)
[2025-02-22 18:47] LABS: Bacteria Urine None Seen (None Seen); Hyaline Casts Urine 0-2 /LPF (0-2); Squamous Epithelial Cell Urine 0-2 /HPF (0-2); UACC Culture Trigger YES
[2025-02-22 18:55] LABS: Alanine Aminotransferase 21 U/L (0-40); Albumin Level 4.3 g/dL (3.5-5.0); Alkaline Phosphatase 91 U/L (39-117); Anion Gap 18 (12-20); Aspartate Amino Transferase 22 U/L (5-37); Bilirubin Direct 0.3 mg/dL (0.0-0.5); Bilirubin Total 0.6 mg/dL (0.0-1.0); Blood Urea Nitrogen 73 mg/dL (9-16); Calcium 9.9 mg/dL (8.4-10.2); Carbon Dioxide 20 mmol/L (22-29); Chloride 109 mmol/L (96-108); Creatinine Clr Calc Pharmacy 25.2; Estimated Glomerular Filt Rate 21; Glucose Random 91 mg/dL (60-115); Magnesium 2.3 mg/dL (1.6-2.6); Potassium 4.5 mmol/L (3.3-5.1); Sodium 142 mmol/L (135-145); Total Protein 7.4 g/dL (6.5-8.0)
--- NOTE | 2025-02-22 19:00 | PC.NURSE ---
assumed care of pt at this time, ennis has >2500mL urine and bag had burst leaking to the floor. urine cleaned up bag changed. awaiting further orders by .
[2025-02-22 19:22] VITALS: BP 143/45; PULSE 88; RESP 18; TEMP 36.8; O2SAT 95
[2025-02-22] MEDS: cefTRIAXone sodium 1 GM VIAL IVPUSH (20:11)
[2025-02-22] MEDS: Tamsulosin HCL 0.4 MG CAPSULE PO (20:11)
[2025-02-22] MEDS: 0.9 % Sodium Chloride 1,000 ML 999 ML IV (20:11)
--- NOTE | 2025-02-22 20:12 | P.HPHOSP_ITS ---
History of Present Illness Date of Service: 02/22/25 Chief Complaint: abd pain 74-year-old male with a past medical history of COPD, BPH, pulmonary nodule presented to the hospital with a chief complaint of abdominal pain for about a week. Patient mentions that he has been having difficulty urinating for about a week intermittently and has been having gradual swelling in his abdomen. Pain is located more so in the lower abdomen. Went to see his PCP this morning and asked him to go to the ER for further evaluation. Patient denies any chest pain or palpitations. Denies any fevers. Denies any nausea vomiting or diarrhea. Review of all other systems is negative except mentioned above ER course: Per ER physician, patient noted to have lower abdominal distension; tender on palpation; bladder scan showed 2.1 L of urine; Mojica catheter was placed. Urinalysis abnormal consistent with UTI. Given antibiotics. Also noted to have NAGELA. [facility] Medical History Elevated PSA measurement Pulmonary nodule Personal history of nicotine dependence Dyspnea COPD (chronic obstructive pulmonary disease) Surgical History Hx of appendectomy Social History Patient Tobacco Use Status: Former Tobacco user Tobacco use type: Cigarette Years Smoked: Since 12 years old Smoked in Last 30 Days: No Use of substances other than those prescribed or required for medical reasons: No Advance Directives: No Advance Directives Information Provided: No Meds Allergies Allergy/AdvReac Type Severity Reaction Status Date / Time No Known Allergies Allergy Verified 02/22/25 17:23 Active Medications: Current Medications Sodium Chloride (Ns) 1,000 mls @ 999 mls/hr IV .Q1H1M STA Stop: 02/22/25 20:40 Last Admin: 02/22/25 20:11 Dose: 999 mls/hr Home Medications ?Medication ?Instructions ?Recorded ?Confirmed ?Last Taken ?Type omeprazole 20 mg capsule,delayed 20 mg PO DAILY 03/16/21 Unknown History release nebulizers 12/13/22 Unknown History Physical Exam 2 Vital Signs and Narrative: Vital Signs: Last Vital Signs Temp 98.2 F 02/22/25 19:22 Pulse 88 06/20/25 19:22 Resp 18 02/22/25 19:22 BP 143/45 H 02/22/25 19:22 Pulse Ox 95 02/22/25 19:22 O2 Del Method Room Air 02/22/25 19:22 BMI result Body Mass Index 27.7 Gen: Appears be in no acute distress HEENT: NCAT, Moist mucosa. Pulmonary: Vesicular breath sounds, fair air entry CVS: Normal S1-S2 Abdomen: BS+, Soft, Nontender Extremities: Warm well perfused Neuro: Alert and awake. Results Labs 02/22/25 18:32 02/22/25 18:32 Labs: Laboratory Results - last 24 hr 02/22/25 02/22/25 18:32 18:33 MCV 89.2 MCH 30.8 MCHC 34.5 RDW 13.7 Plt Count 226 MPV 9.0 L Immature Gran % (Auto) 0.5 H Neut % (Auto) 84.7 H Lymph % (Auto) 5.2 L [place] % (Auto) 8.8 Eos % (Auto) 0.3 Baso % (Auto) 0.5 Lymph # (Auto) 0.8 L [place] # (Auto) 1.4 H Eos # (Auto) 0.0 Baso # (Auto) 0.1 Abs Immat Gran (auto) 0.07 H Absolute Neuts (auto) 13.0 H Absolute Nucleated RBC 0.000 Nucleated RBC % (auto) 0.0 Anion Gap 18 Estim Creat Clear Calc 25.2 Estimated GFR 21 Random Glucose 91 Lactic Acid 1.0 Calcium 9.9 Magnesium 2.3 Total Bilirubin 0.6 Direct Bilirubin 0.3 AST 22 ALT 21 Alkaline Phosphatase 91 Total Protein 7.4 Albumin 4.3 Urine Color Yellow Urine Appearance Clear Urine pH 5.0 Ur Specific [place] 1.020 Urine Protein Negative Urine Glucose (UA) Negative Urine Ketones Trace Urine Blood Small (1+) H Urine Nitrite Negative Ur Leukocyte Esterase Moderate (2+) H Urine RBC 6-10 H Urine WBC 11-20 H Ur Squamous Epith Cells 0-2 Urine Bacteria None Seen Hyaline Casts 0-2 Assessment and Plan (1) Acute kidney injury: Status: Acute Plan 74-year-old male with a past medical history of COPD, BPH, pulmonary nodule presented to the hospital with a chief complaint of abdominal pain for about a week. Admitted for following UTI: Urinary retention: Patient was retaining up to 2.15 L. Status post Mojica catheter placement in the ER. Continue ceftriaxone Follow-up cultures Urology consult CT abdomen pelvis-pending ANGELA: Postrenal. Urine retention nose relieved. Currently has Mojica Avoid nephrotoxins Follow-up repeat creatinine in a.m., if not improving to consider nephrology consult. COPD: Stable. BPH: Continue Flomax. DVT prophylaxis: SubQ heparin Code status: Full code Quality Stroke Does the patient have a stroke diagnosis?: No VTE Prior VTE?: No VTE Risk Level:: Medical - moderate - high VTE Device Contraindication: Treatment Not Indicated VTE Drug Contraindication: N/A - Med Ordered
--- NOTE | 2025-02-22 20:58 | PHA.MEDREC ---
Pharmacy Consult ? Medication Reconciliation Pharmacy has completed the medication reconciliation, spoke to patient at bedside who confirmed medications - said he sometimes misses nebulizer doses.
[2025-02-22 21:53] VITALS: BP 105/49; PULSE 95; RESP 20; TEMP 36.7; O2SAT 97
[2025-02-22 22:33] VITALS: BMI 26.4
[2025-02-22 22:42] VITALS: BP 140/61; PULSE 94; RESP 18; TEMP 36.2; O2SAT 95
[2025-02-22 23:48] VITALS: BP 120/63; PULSE 88; RESP 16; TEMP 36.5; O2SAT 93
[2025-02-23] VITALS (7 sets, daily range): BP systolic 98–131; BP diastolic 47–65; PULSE 85–98; RESP 16–20; TEMP 36.4–37; O2SAT 90–95
[2025-02-23] MEDS: 0.9 % Sodium Chloride Flush 3 ML SYRINGE IVFLUSH ×3 (01:00→21:05)
[2025-02-23 07:21] LABS: MANUAL DIFF FLAG NO
[2025-02-23 07:24] LABS: Basophils Absolute Auto 0.1 X10*3/uL (0.0-0.2); Basophils Percent Auto 0.6 % (0-2); Eosinophils Absolute Auto 0.3 X10*3/uL (0.0-0.4); Eosinophils Percent Auto 2.3 % (0-4); Hematocrit 38.6 % (42.0-52.0); Hemoglobin 13.1 g/dl (14.0-18.0); Imm Gran Abs Auto 0.04 X10*3/uL (0.00-0.03); Imm Gran Pct Auto 0.3 % (0.0-0.4); Lymphocytes Absolute Auto 0.9 X10*3/uL (1.2-4.9); Mean Corpuscular HGB Conc 33.9 g/dl (31.0-36.0); Mean Corpuscular Hemoglobin 30.5 pg (27.0-33.0); Mean Platelet Volume 9.4 fL (9.4-12.4); Monocytes Absolute Auto 1.3 X10*3/uL (0.1-1.2); Monocytes Percent Auto 11.2 % (2-11); Neutrophils Absolute Auto 9.1 x10*3/uL (2.0-8.3); Neutrophils Percent Auto 77.6 % (45-73); Platelet Count 203 X10*3/uL (160-400); Red Blood Count 4.29 X10*6/uL (4.60-5.80); Red Cell Distribution Width 13.7 % (11.0-16.0); White Blood Count 11.8 X10*3/uL (4.8-10.8)
[2025-02-23 07:40] LABS: Alanine Aminotransferase 18 U/L (0-40); Albumin Level 3.5 g/dL (3.5-5.0); Alkaline Phosphatase 70 U/L (39-117); Anion Gap 11 (12-20); Aspartate Amino Transferase 19 U/L (5-37); Bilirubin Total 0.6 mg/dL (0.0-1.0); Blood Urea Nitrogen 50 mg/dL (9-16); Calcium 8.5 mg/dL (8.4-10.2); Carbon Dioxide 23 mmol/L (22-29); Chloride 113 mmol/L (96-108); Estimated Glomerular Filt Rate 47; Glucose Random 87 mg/dL (60-115); Sodium 143 mmol/L (135-145); Total Protein 6.2 g/dL (6.5-8.0)
[2025-02-23] MEDS: Omeprazole 20 MG CAPSULE.DR PO (08:58)
[2025-02-23] MEDS: Tamsulosin HCL 0.4 MG CAPSULE PO (08:58)
[2025-02-23] MEDS: Lactated Ringers 1,000 ML 100 ML IVCONT (08:59)
--- NOTE | 2025-02-23 10:21 | MHC.CM.PN ---
IMM 02/23/25, Pt lives alone, he does not have home health services, PCP confirmed: Thaddeus Oreilly. He said that his HCP is his sisters. For DME: nebulizer. Transport home at [place] is his sister, DCP: home, self care, CM to follow for DC needs.
--- NOTE | 2025-02-23 16:08 | HO.PM.IMPN ---
Subjective Subjective Date of Service: 02/23/25 Interval History: Pt reports feels much better than at time of presentation Resolution of abdominal pain Denies nausea or vomiting Able to tolerate p.o. intake Review of Systems Review of Systems: Yes all other systems are reviewed and are negative Physical Exam Vital Signs: Vital Signs: Last Vital Signs Temp 97.7 F 02/23/25 15:25 Pulse 93 02/23/25 15:25 Resp 20 02/23/25 15:25 BP 101/50 L 02/23/25 15:25 Pulse Ox 93 02/23/25 15:25 O2 Del Method Room Air 02/23/25 15:25 BMI result Body Mass Index 26.4 General: AOx3, no acute distress Resp: CTA bilaterally CVS: S1, S2, RRR GI: +BS, NT, no distention Skin: Warm, dry Neuro: Cranial nerves II-XII grossly intact bilaterally. Motor grossly intact bilaterally : Mojica in place draining clear urine Extremities: No edema Psych: Appropriate affect Objective Data Active Medications Acetaminophen (Acetaminophen 325 Mg Tablet) 650 mg PO Q6H PRN PRN Reason: Pain, Mild 1-3,fever,headache Albuterol Sulfate (Albuterol Sulfate 90 Mcg 8 Gm Inhaler) 2 puff INHALE QID PRN PRN Reason: shortness of breath or wheezing Albuterol/Ipratropium (Albuterol/Iprat 2.5/0.5mg 3 Ml Ampul.Neb) 3 ml INHALE RBID [facility] Budesonide (Budesonide 0.5 Mg/2 Ml Ampul.Neb) 0.5 mg INHALE RBID [facility] Calcium Carbonate (Calcium Carbonate 750 Mg Tab.Chew) 750 mg PO Q4H PRN PRN Reason: Heartburn Ceftriaxone Sodium (Ceftriaxone Sodium 1 Gm Vial) 1 gm IVPUSH Q24H [facility] Hydromorphone HCl (Hydromorphone Hcl 0.5 Mg/0.5 Ml Syringe) 0.5 mg IVPUSH Q4H PRN; Protocol PRN Reason: Pain, Severe (Pain Scale 7-10) Lactated Ringer's (Lr) 1,000 mls @ 100 mls/hr IVCONT .Q10H [facility] Stop: 02/23/25 18:29 Last Admin: 02/23/25 08:59 Dose: 100 mls/hr Documented By: RUFUS Magnesium Hydroxide (Milk Of Magnesia 30 Ml Oral.Susp) 30 ml PO DAILY PRN PRN Reason: Constipation Melatonin (Melatonin 3 Mg Tablet) 6 mg PO BEDTIME PRN PRN Reason: Insomnia Montelukast Sodium (Montelukast Sodium 10 Mg Tablet) 10 mg PO BEDTIME [facility] Omeprazole (Omeprazole 20 Mg Capsule.Dr) 20 mg PO DAILY@0630 [facility] Last Admin: 02/23/25 08:58 Dose: 20 mg Documented By: RUFUS Sodium Chloride (0.9 % Sodium Chloride Flush 3 Ml Syringe) 3 ml IVFLUSH QSHIFT [facility] Last Admin: 02/23/25 09:01 Dose: 3 ml Documented By: RUFUS Tamsulosin HCl (Tamsulosin Hcl 0.4 Mg Capsule) 0.4 mg PO DAILY [facility] Last Admin: 02/23/25 08:58 Dose: 0.4 mg Documented By: RUFUS Labs 02/23/25 06:25 02/23/25 06:25 Labs: Laboratory Results - last 24 hr 02/22/25 02/22/25 02/23/25 18:32 18:33 06:25 MCV 89.2 90.0 MCH 30.8 30.5 MCHC 34.5 33.9 RDW 13.7 13.7 Plt Count 226 203 MPV 9.0 L 9.4 Immature Gran % (Auto) 0.5 H 0.3 Neut % (Auto) 84.7 H 77.6 H Lymph % (Auto) 5.2 L 8.0 L Gillespie % (Auto) 8.8 11.2 H Eos % (Auto) 0.3 2.3 Baso % (Auto) 0.5 0.6 Lymph # (Auto) 0.8 L 0.9 L [place] # (Auto) 1.4 H 1.3 H Eos # (Auto) 0.0 0.3 Baso # (Auto) 0.1 0.1 Abs Immat Gran (auto) 0.07 H 0.04 H Absolute Neuts (auto) 13.0 H 9.1 H Absolute Nucleated RBC 0.000 0.000 Nucleated RBC % (auto) 0.0 0.0 Anion Gap 18 11 L Estim Creat Clear Calc 25.2 50.0 Estimated GFR 21 47 Random Glucose 91 87 Lactic Acid 1.0 Calcium 9.9 8.5 D Magnesium 2.3 Total Bilirubin 0.6 0.6 Direct Bilirubin 0.3 AST 22 19 ALT 21 18 Alkaline Phosphatase 91 70 Total Protein 7.4 6.2 L Albumin 4.3 3.5 Urine Color Yellow Urine Appearance Clear Urine pH 5.0 Ur Specific [place] 1.020 Urine Protein Negative Urine Glucose (UA) Negative Urine Ketones Trace Urine Blood Small (1+) H Urine Nitrite Negative Ur Leukocyte Esterase Moderate (2+) H Urine RBC 6-10 H Urine WBC 11-20 H Ur Squamous Epith Cells 0-2 Urine Bacteria None Seen Hyaline Casts 0-2 Microbiology Microbiology Results: Microbiology 02/22/25 19:52 Urine Culture - Preliminary Urine clean catch - Clean Catch Midstream No growth to date. Assessment and Plan (1) Acute kidney injury: Status: Acute (2) Acute urinary retention: Status: Acute Plan 74-year-old male with a past medical history of COPD, BPH, pulmonary nodule presented to the hospital with a chief complaint of abdominal pain for about a week. Admitted for following UTI w/ urinary retention and meeting sepsis criteria Patient was retaining up to 2.15 L. Status post Mojica catheter placement in the ER Has not been urinating much x2 weeks CT showing mild bilateral hydroureteronephrosis Met sepsis criteria with tachycardia and leukocytosis; lactic acid WNL Pt given IVF and started on broad-spectrum antibiotics in the ED Will treat with ceftriaxone, day 2 Follow-up cultures Urology consult Will start Flomax Post renal ANGELA Creatinine 2.89 at time of presentation, elevated from previous of 0.97 Secondary to urinary retention and reduced p.o. intake Currently improving at 1.46 Pt received IVF bolus and fluids Avoid nephrotoxins Follow creatinine COPD Not in acute exacerbation Continue home inhalers GERD Continue PPI DVT prophylaxis: SubQ heparin Code status: Full code Pt will require continued hospitalization due to continued ANGELA and need to monitor renal function. Quality Stroke Does the patient have a stroke diagnosis?: No VTE Prior VTE?: No VTE Risk Level:: Medical - moderate - high VTE Device Contraindication: Treatment Not Indicated VTE Drug Contraindication: N/A - Med Ordered
[2025-02-23] MEDS: Budesonide 0.5 MG/2 ML AMPUL.NEB INHALE (19:04)
[2025-02-23] MEDS: Albuterol/Iprat 2.5/0.5MG 3 ML AMPUL.NEB INHALE (19:04)
[2025-02-23] MEDS: cefTRIAXone sodium 1 GM VIAL IVPUSH (21:05)
[2025-02-23] MEDS: Montelukast Sodium 10 MG TABLET PO (21:05)
[2025-02-23] MEDS: Melatonin 3 MG TABLET 6 MG PO (21:07)
[2025-02-24] VITALS (9 sets, daily range): BP systolic 90–156; BP diastolic 46–74; PULSE 78–98; RESP 16–18; TEMP 36.4–37.7; O2SAT 90–98
[2025-02-24] MEDS: Omeprazole 20 MG CAPSULE.DR PO (06:32)
[2025-02-24] MEDS: Albuterol/Iprat 2.5/0.5MG 3 ML AMPUL.NEB INHALE ×2 (08:11→19:05)
[2025-02-24] MEDS: Budesonide 0.5 MG/2 ML AMPUL.NEB INHALE ×2 (08:12→19:05)
[2025-02-24 08:51] LABS: Anion Gap 14 (12-20); Blood Urea Nitrogen 21 mg/dL (9-16); Calcium 7.7 mg/dL (8.4-10.2); Carbon Dioxide 25 mmol/L (22-29); Chloride 107 mmol/L (96-108); Estimated Glomerular Filt Rate > 60; Glucose Random 137 mg/dL (60-115); Potassium 3.4 mmol/L (3.3-5.1); Sodium 143 mmol/L (135-145)
[2025-02-24] MEDS: 0.9 % Sodium Chloride Flush 3 ML SYRINGE IVFLUSH ×3 (09:27→20:21)
[2025-02-24] MEDS: Tamsulosin HCL 0.4 MG CAPSULE PO (09:27)
--- NOTE | 2025-02-24 10:30 | PM.UROCN ---
History of Present Illness Consult details Consult date: 02/24/25 Narrative: CC: urinary retention 74-year-old male Significant past medical history COPD with BPH Present through emergency room with persistent abdominal pain for approximately one-week Described difficulty with urinating and small frequent void and gradual swelling of abdomen PCP referred to emergency room Bladder scan showed greater than 2 L of urine Mojica catheter placed UTI detected on UA, culture negative Noted acute on chronic renal insult Creatinine 2.9 on admission currently 1.0 Recommend Mojica catheter remain for 4 weeks Outpatient voiding trial with Urology Should be placed on alpha-jorge and finasteride Catheter should have blue catheter cap and patient taught how to empty bag every 4-6 hours Sent home with 2 L Mojica catheter bag to use overnight Review of Systems Constitutional: Constitutional: Reports as per HPI and Reports no additional constitutional complaints Cardiovascular: Cardiovascular: Reports as per HPI and Reports no additional cardiovascular complaints Respiratory: Respiratory: Reports as per HPI and Reports no additional respiratory complaints Gastrointestinal: Gastrointestinal: Reports as per HPI and Reports no additional gastrointestinal complaints Genitourinary: Genitourinary: Reports as per HPI Musculoskeletal: Musculoskeletal: Reports no additional musculoskeletal complaints and Reports as per HPI Neurologic: Reports system reviewed and no additional complaints, except as documented and Reports as per HPI PMFSH Past Medical History Medical History Elevated PSA measurement Pulmonary nodule Personal history of nicotine dependence Dyspnea COPD (chronic obstructive pulmonary disease) Surgical History Surgical History Hx of appendectomy Social History Social History Household Members: None Housing: House Patient Tobacco Use Status: Former Tobacco user Tobacco use type: Cigarette and Cigar Years Smoked: Since 12 years old Smoked in Last 30 Days: No Patient Interested in Nicotine Replacement: No Patient Given Instructions on How to Stop Smoking: No Second Hand Smoke Exposure: No Use of substances other than those prescribed or required for medical reasons: No Currently Displaying Signs/Symptoms of Drug Intoxication Withdrawal: No Have you been hit, kicked, punched, or otherwise hurt by someone within the past year? If so, by whom?: No Do you feel safe in your current relationship?: No Current Relationship Is there a partner from a previous relationship who is making you feel unsafe now?: No Are you made to feel afraid or neglected: No Advance Directives: No Advance Directives Information Provided: Yes (Info re:HCP) Advance Directives on File: No Do you have a plan to hurt others: No Plan Recently lost weight without trying: No Eating poorly because of decreased appetite: No Nutrition Risks: No Nutritional Risk Poor oral hygiene: No service: No Meds Allergies Allergy/AdvReac Type Severity Reaction Status Date / Time No Known Allergies Allergy Verified 02/22/25 17:23 Active Medications: Current Medications Acetaminophen (Acetaminophen 325 Mg Tablet) 650 mg PO Q6H PRN PRN Reason: Pain, Mild 1-3,fever,headache Albuterol Sulfate (Albuterol Sulfate 90 Mcg 8 Gm Inhaler) 2 puff INHALE QID PRN PRN Reason: shortness of breath or wheezing Albuterol/Ipratropium (Albuterol/Iprat 2.5/0.5mg 3 Ml Ampul.Neb) 3 ml INHALE RBID [facility] Last Admin: 02/24/25 08:11 Dose: 3 ml Budesonide (Budesonide 0.5 Mg/2 Ml Ampul.Neb) 0.5 mg INHALE RBID [facility] Last Admin: 02/24/25 08:12 Dose: 0.5 mg Calcium Carbonate (Calcium Carbonate 750 Mg Tab.Chew) 750 mg PO Q4H PRN PRN Reason: Heartburn Ceftriaxone Sodium (Ceftriaxone Sodium 1 Gm Vial) 1 gm IVPUSH Q24H [facility] Last Admin: 02/23/25 21:05 Dose: 1 gm Hydromorphone HCl (Hydromorphone Hcl 0.5 Mg/0.5 Ml Syringe) 0.5 mg IVPUSH Q4H PRN; Protocol PRN Reason: Pain, Severe (Pain Scale 7-10) Magnesium Hydroxide (Milk Of Magnesia 30 Ml Oral.Susp) 30 ml PO DAILY PRN PRN Reason: Constipation Melatonin (Melatonin 3 Mg Tablet) 6 mg PO BEDTIME PRN PRN Reason: Insomnia Last Admin: 02/23/25 21:07 Dose: 6 mg Montelukast Sodium (Montelukast Sodium 10 Mg Tablet) 10 mg PO BEDTIME [facility] Last Admin: 02/23/25 21:05 Dose: 10 mg Omeprazole (Omeprazole 20 Mg Capsule.Dr) 20 mg PO DAILY@0630 [facility] Last Admin: 02/24/25 06:32 Dose: 20 mg Sodium Chloride (0.9 % Sodium Chloride Flush 3 Ml Syringe) 3 ml IVFLUSH QSHIFT [facility] Last Admin: 02/24/25 09:27 Dose: 3 ml Tamsulosin HCl (Tamsulosin Hcl 0.4 Mg Capsule) 0.4 mg PO DAILY [facility] Last Admin: 02/24/25 09:27 Dose: 0.4 mg Home Medications ?Medication ?Instructions ?Recorded ?Confirmed ?Last Taken ?Type omeprazole 20 mg capsule,delayed 20 mg PO DAILY@0630 07/14/20 02/22/25 02/22/25 History release nebulizers 12/13/22 Unknown History acetaminophen 325 mg tablet 650 mg PO Q6H PRN Pain 02/22/25 02/22/25 Unknown History albuterol sulfate 90 mcg/actuation 2 puff inhalation QID PRN 02/22/25 02/22/25 Unknown History aerosol inhaler (Ventolin HFA) shortness of breath or wheezing Physical Exam Vital Signs: Vital Signs: Last Vital Signs Temp 97.6 F 02/24/25 07:11 Pulse 89 02/24/25 08:13 Resp 18 02/24/25 08:13 BP 136/62 02/24/25 07:11 Pulse Ox 93 02/24/25 07:11 O2 Del Method Room Air 02/24/25 07:11 BMI result Body Mass Index 26.4 Const: General: cooperative, healthy appearing, comfortable and no acute distress Orientation/consciousness: patient oriented x3 HEENT: Face and sinus: Yes normal facial exam Mouth: moist mucous membranes Neck: Neck: Yes normal visual inspection, Yes full ROM and Yes trachea midline Chest: Chest palpation & inspection: normal inspection of the chest Resp: Effort & Inspection: normal respiratory effort, able to speak in complete sentences and no respiratory distress GI: Inspection: Yes normal to inspection Back/Spine/Pelvis: Cervical Spine: normal cervical lordosis Thoracic/Lumbar Spine: thoracic and lumbar spine normal to inspection Skin: General skin exam: no rashes or lesions noted Neuro: General: patient oriented x3, tone normal and moves all extremities Extrem: General: Yes normal to inspection and Yes capillary refill normal Results Labs 02/23/25 06:25 02/24/25 08:23 Labs: Abnormal lab results 02/24/25 Range/Units 08:23 BUN 21 H (9-16) mg/dL Random Glucose 137 H (60-115) mg/dL Calcium 7.7 L D (8.4-10.2) mg/dL BMP 02/24/25 08:23 Sodium 143 Potassium 3.4 Chloride 107 Carbon Dioxide 25 BUN 21 H Creatinine 1.00 Calcium 7.7 L D Urine 02/22/25 Range/Units 18:33 Urine Color Yellow Urine Appearance Clear Urine pH 5.0 (5.0-9.0) Ur Specific [place] 1.020 (1.005-1.025) Urine Protein Negative (Neg-Trace) mg/dL Urine Glucose (UA) Negative (Negative) mg/dL All other labs normal. Assessment and Plan (1) Acute urinary retention: Status: Acute (2) Acute kidney injury: Status: Acute Plan Mojica to remain 4 weeks Outpatient voiding trial Alpha jorge and finasteride on discharge Procedures Date of Service Date of Service: 02/24/25
[2025-02-24 11:40] LABS: Phosphorus 2.2 mg/dL (2.7-4.5)
[2025-02-24] MEDS: Lactated Ringers 500 ML 999 ML IV (11:47)
[2025-02-24 11:55] LABS: Magnesium 1.2 mg/dL (1.6-2.6)
[2025-02-24] MEDS: Magnesium Sulfate/H2O 2 GM/50 ML PIGGYBACK IV ×2 (12:35→14:29)
[2025-02-24] MEDS: Potassium Phosphate/NS 15 MMOL/250 ML PLAST..BAG 62.5 MMOL IV (12:39)
--- NOTE | 2025-02-24 16:05 | HO.PM.IMPN ---
Subjective Subjective Date of Service: 02/24/25 Interval History: Reports some right sided abdominal pain that reminds him of acid reflux Denies any nausea, vomiting, or diarrhea Reports had normal bowel movement yesterday Denies chest pain/pressure, palpitations No fever or chills Notified by nursing that pt was experiencing frequent PVCs Lab work was significant for hypokalemia of 1.2 and hypophosphatemia of 2.2 Review of Systems Review of Systems: Yes all other systems are reviewed and are negative Physical Exam Vital Signs: Vital Signs: Last Vital Signs Temp 97.6 F 02/24/25 14:59 Pulse 88 02/24/25 14:59 Resp 16 02/24/25 14:59 BP 117/67 02/24/25 14:59 Pulse Ox 96 02/24/25 14:59 O2 Del Method Room Air 02/24/25 14:59 BMI result Body Mass Index 26.4 General: AOx3, no acute distress Resp: CTA bilaterally CVS: S1, S2, RRR GI: +BS, NT, no distention Skin: Warm, dry Neuro: Cranial nerves II-XII grossly intact bilaterally. Motor grossly intact bilaterally : Mojica in place draining clear urine Extremities: No edema Psych: Appropriate affect Objective Data Active Medications Acetaminophen (Acetaminophen 325 Mg Tablet) 650 mg PO Q6H PRN PRN Reason: Pain, Mild 1-3,fever,headache Albuterol Sulfate (Albuterol Sulfate 90 Mcg 8 Gm Inhaler) 2 puff INHALE QID PRN PRN Reason: shortness of breath or wheezing Albuterol/Ipratropium (Albuterol/Iprat 2.5/0.5mg 3 Ml Ampul.Neb) 3 ml INHALE RBID COUNTS INCLUDE 234 BEDS AT THE [facility] Last Admin: 02/24/25 08:11 Dose: 3 ml Documented By: JORY Budesonide (Budesonide 0.5 Mg/2 Ml Ampul.Neb) 0.5 mg INHALE RBID COUNTS INCLUDE 234 BEDS AT THE [facility] Last Admin: 02/24/25 08:12 Dose: 0.5 mg Documented By: JORY Calcium Carbonate (Calcium Carbonate 750 Mg Tab.Chew) 750 mg PO Q4H PRN PRN Reason: Heartburn Ceftriaxone Sodium (Ceftriaxone Sodium 1 Gm Vial) 1 gm IVPUSH Q24H COUNTS INCLUDE 234 BEDS AT THE [facility] Last Admin: 02/23/25 21:05 Dose: 1 gm Documented By: VASILE Hydromorphone HCl (Hydromorphone Hcl 0.5 Mg/0.5 Ml Syringe) 0.5 mg IVPUSH Q4H PRN; Protocol PRN Reason: Pain, Severe (Pain Scale 7-10) Magnesium Hydroxide (Milk Of Magnesia 30 Ml Oral.Susp) 30 ml PO DAILY PRN PRN Reason: Constipation Melatonin (Melatonin 3 Mg Tablet) 6 mg PO BEDTIME PRN PRN Reason: Insomnia Last Admin: 02/23/25 21:07 Dose: 6 mg Documented By: VASILE Comments: requested for sleep Montelukast Sodium (Montelukast Sodium 10 Mg Tablet) 10 mg PO BEDTIME COUNTS [facility]CLUDE 234 BEDS AT [facility] Last Admin: 02/23/25 21:05 Dose: 10 mg Documented By: VASILE Omeprazole (Omeprazole 20 Mg Capsule.Dr) 20 mg PO DAILY@0630 [facility]S [facility] 234 BEDS AT [facility] Last Admin: 02/24/25 06:32 Dose: 20 mg Documented By: SAURAV Sodium Chloride (0.9 % Sodium Chloride Flush 3 Ml Syringe) 3 ml IVFLUSH QSHIFT COUNTS INCLUDE 234 BEDS AT [facility] Last Admin: 02/24/25 14:31 Dose: 3 ml Documented By: RUFUS Tamsulosin HCl (Tamsulosin Hcl 0.4 Mg Capsule) 0.4 mg PO DAILY COUNTS [facility]CLUDE 234 BEDS AT [facility] Last Admin: 02/24/25 09:27 Dose: 0.4 mg Documented By: RUFUS Labs 02/23/25 06:25 02/24/25 08:23 Labs: Laboratory Results - last 24 hr 02/24/25 08:23 Anion Gap 14 Estim Creat Clear Calc 73.0 Estimated GFR > 60 Random Glucose 137 H Calcium 7.7 L D Phosphorus 2.2 L Magnesium 1.2 L* Microbiology Microbiology Results: Microbiology 02/22/25 19:52 Urine Culture - Final Urine clean catch - Clean Catch Midstream No growth. 02/22/25 18:32 Blood Culture - Preliminary Blood - Venous No growth after 24 hours. 02/22/25 18:32 Blood Culture - Preliminary Blood - Venous No growth after 24 hours. Assessment and Plan (1) Acute kidney injury: Status: Acute (2) Acute urinary retention: Status: Acute Plan 74-year-old male with a past medical history of COPD, BPH, pulmonary nodule presented to the hospital with a chief complaint of abdominal pain for about a week. Admitted for following UTI w/ urinary retention and meeting sepsis criteria Patient was retaining up to 2.15 L. Status post Mojica catheter placement in the ER Has not been urinating much x2 weeks CT showing mild bilateral hydroureteronephrosis Met sepsis criteria with tachycardia and leukocytosis; lactic acid WNL Pt given IVF and started on broad-spectrum antibiotics in the ED Urine cultures negative for growth Was treated with ceftriaxione x4 doses, will stop after 5 days Urology consulted, recommend keeping Mojica in place for 4 weeks Continue Flomax, finasteride Outpatient follow up with urology in 4 weeks for voiding trial Hypomagnesmia, hypophostotemia Likely secondary to ANGELA in the setting of urinary retention Pt's mag 1.2, phosphorus 2.2 Replenished with Mag 2g IV x2, KPhos Follow labs Post renal ANGELA Creatinine 2.89 at time of presentation, elevated from previous of 0.97 Secondary to urinary retention and reduced p.o. intake Currently resovled at 1.00 after IVF and catheter placement COPD Not in acute exacerbation Continue home inhalers GERD Continue PPI DVT prophylaxis: SubQ heparin Code status: Full code Pt will require continued hospitalization due to continued ANGELA and need to monitor renal function. Quality Stroke Does the patient have a stroke diagnosis?: No VTE Prior VTE?: No VTE Risk Level:: Medical - moderate - high VTE Device Contraindication: Treatment Not Indicated VTE Drug Contraindication: N/A - Med Ordered
[2025-02-24] MEDS: cefTRIAXone sodium 1 GM VIAL IVPUSH (20:21)
[2025-02-24] MEDS: Montelukast Sodium 10 MG TABLET PO (20:21)
[2025-02-25] VITALS (11 sets, daily range): BP systolic 84–137; BP diastolic 52–75; PULSE 82–98; RESP 16–17; TEMP 36.8–37.5; O2SAT 92–98
[2025-02-25] MEDS: Omeprazole 20 MG CAPSULE.DR PO (04:38)
[2025-02-25] MEDS: Albuterol/Iprat 2.5/0.5MG 3 ML AMPUL.NEB INHALE ×2 (07:28→19:56)
[2025-02-25] MEDS: Budesonide 0.5 MG/2 ML AMPUL.NEB INHALE ×2 (07:31→19:56)
[2025-02-25] MEDS: Tamsulosin HCL 0.4 MG CAPSULE PO (07:59)
[2025-02-25] MEDS: Finasteride 5 MG TABLET PO (07:59)
[2025-02-25] MEDS: 0.9 % Sodium Chloride Flush 3 ML SYRINGE IVFLUSH ×2 (08:00→20:38)
[2025-02-25] MEDS: Milk of Magnesia 30 ML ORAL.SUSP PO (08:02)
--- NOTE | 2025-02-25 09:43 | CA_ITS ---
Transthoracic Echocardiogram Patient (Last, First, Middle): Sergo Woods, Gender: Male Date of : 1950 Age: 74 Procedure Date: 02/25/2025 Procedure Type: Transthoracic Echocardiogram Location: [facility] [place] Height: 187.96 cm Weight: 99.79 kg BSA: 2.26 m2 Heart Rate: 90 bpm BP: 129 / 69 mmHg Installer Inspector Final: Referring MD: Lena AGUIRRE Symptoms: Freqent PVCs on cardiac monitoring Study Quality: Technically Difficult ECG Rhythm: Sinus Conclusions: - The left ventricular systolic function is normal. The visually estimated ejection fraction is between 55-60%. - No obvious valvular pathology seen on this study. Findings Left Ventricle Normal left ventricular cavity size. There is mildly increased left ventricular wall thickness. The left ventricular systolic function is normal. The visually estimated ejection fraction is between 55-60%. There is no evidence of regional wall motion abnormalities. Diastolic function is normal for age. Right Ventricle Mildly increased right ventricular cavity size. There is normal right ventricular systolic function. Aortic Valve There is a normal trileaflet aortic valve. There is no aortic valve stenosis. There is no aortic valve regurgitation. Mitral Valve The mitral valve appears normal. There is no mitral valve regurgitation. There is no mitral valve stenosis. Pulmonic Valve The pulmonic valve is likely normal. Tricuspid Valve There is trace tricuspid valve regurgitation. There is no evidence of pulmonary hypertension. Great Vessels The asc aorta is normal in size. Venous The inferior vena cava is normal in size and collapses greater than 50% with inspiration. Pericardium/Pleural There is no evidence of pericardial effusion. Prior Study Comparison No significant change compared to prior study dated: 07/24/2018. Recommendations, Care & Conclusions No obvious valvular pathology seen on this study. Measurements 2D Linear Measurements IVSd: 1.12 0.6-0.9/0.6-1.0 cm LVIDd: 5.00 3.9-5.3/4.2-5.9 cm LVIDd Index: 2.21 2.4-3.2/2.2-3.1 cm/m2 LVIDs: 3.44 2.0-3.6 cm LVPWd: 1.09 0.7-1.1 cm LA Diam: 3.40 2.7-3.8/3.0-4.0 cm LAIDs Index: 1.50 1.5-2.3 cm/m2 LV Mass: 259.80 67-162/88-224 g LV Mass Index: 114.95 43-95/49-115 g/m2 LVOT Diam: 2.10 3.0+(-)1.3 cm 2D Systolic Function EF 4C: 59.30 >55% Mitral Valve MV Pk E: 0.65 MV PK A: 0.81 MV Decel Time: 166.00 E/A: 0.80 E'Lateral: 14.90 E'Medial: 9.68 E/E' Med: 6.70 E/E' Lat: 4.40 PHT: 49.00 MVA PHT: 4.49 Decel [place]: 3.91 Aortic Valve AoV Pk Dc: 1.18 AoV Mn Dc: 0.77 AoV VTI: 0.22 AoV Pk Grad: 6.00 Aov Mn Grad: 3.00 SETH Cont.VTI: 2.54 LVOT LVOT Pk Dc: 0.69 LVOT Mn Cd: 0.44 LVOT VTI: 0.16 LVOT Pk Grad: 2.00 LVOT Mn Grad: 1.00 LVOT Diam: 2.10 LVOT Area: 3.46 Diastolic Function MV Pk E: 0.65 MV Pk A: 0.81 E/A: 0.80 E'Medial: 9.68 E/E' Med: 6.70 E' Laterial: 14.90 E/E' Lat: 4.40 Right Ventricle TAPSE (mm): 31.30 Tricuspid Valve TR Pk Dc: 2.54 TR Pk Grad: 26.00 RA Press: 8.00 RVSP: 34.00 Great Vessels Aorta Sinus of Valsalva: 3.40 2.0-3.5 cm Ao Asc: 3.40 2.1-3.4 cm Pulmonary Valve PV Pk Dc: 1.05 Peak PV Grad: 4.00 Updated in Other Vendor System with Status of Final Brannon Alvarez MD electronically signed on 02/25/2025 3:51:15 PM with status of Final
[2025-02-25 09:56] LABS: Anion Gap 14 (12-20); Blood Urea Nitrogen 9 mg/dL (9-16); Calcium 7.8 mg/dL (8.4-10.2); Carbon Dioxide 23 mmol/L (22-29); Chloride 105 mmol/L (96-108); Creatinine Clr Calc Pharmacy 70.9; Estimated Glomerular Filt Rate > 60; Glucose Random 151 mg/dL (60-115); Magnesium 1.4 mg/dL (1.6-2.6); Phosphorus 1.4 mg/dL (2.7-4.5); Sodium 139 mmol/L (135-145)
[2025-02-25] MEDS: Magnesium Sulfate/H2O 2 GM/50 ML PIGGYBACK IV (10:35)
[2025-02-25] MEDS: Lactated Ringers 1,000 ML 100 ML IVCONT ×2 (11:33→22:25)
[2025-02-25] MEDS: Lactated Ringers 1,000 ML 999 ML IV (11:50)
[2025-02-25] MEDS: Potassium Phosphate/NS 15 MMOL/250 ML PLAST..BAG 62.5 MMOL IV ×3 (13:02→20:34)
[2025-02-25 16:09] LABS: Blood Urea Nitrogen 13 mg/dL (9-16); Calcium 7.9 mg/dL (8.4-10.2); Creatinine Clr Calc Pharmacy 68.9; Estimated Glomerular Filt Rate > 60; Glucose Random 122 mg/dL (60-115); Magnesium 1.7 mg/dL (1.6-2.6); Phosphorus 2.4 mg/dL (2.7-4.5)
[2025-02-25 16:26] LABS: Anion Gap 14 (12-20); Carbon Dioxide 25 mmol/L (22-29); Chloride 104 mmol/L (96-108); Potassium 4.1 mmol/L (3.3-5.1); Sodium 139 mmol/L (135-145)
--- NOTE | 2025-02-25 18:40 | HO.PM.IMPN ---
Subjective Subjective Date of Service: 02/25/25 Interval History: Labs continue to show electrolyte abnormalities: Potassium 3.0 phosphorus 1.4, Mag 1.4 Likely secondary to hypovolemia in the setting of significant and prolonged urinary retention Cardiac monitoring continues to show occasional to frequent PVCs Pt continues to be asymptomatic without acute complaint No lightheadedness or dizziness Denies chest pain/pressure, or palpitations No SOB or difficulty breathing Denies abdominal pain, nausea, or vomiting Review of Systems Review of Systems: Yes all other systems are reviewed and are negative Physical Exam Vital Signs: Vital Signs: Last Vital Signs Temp 98.4 F 02/25/25 15:23 Pulse 90 02/25/25 15:23 Resp 16 02/25/25 15:23 BP 102/58 L 02/25/25 15:23 Pulse Ox 92 02/25/25 15:23 O2 Del Method Room Air 02/25/25 15:23 BMI result Body Mass Index 26.4 General: AOx3, no acute distress Resp: CTA bilaterally CVS: S1, S2, RRR GI: +BS, NT, no distention Skin: Warm, dry Neuro: Cranial nerves II-XII grossly intact bilaterally. Motor grossly intact bilaterally : Mojica in place draining clear urine Extremities: No edema Psych: Appropriate affect Objective Data Active Medications Acetaminophen (Acetaminophen 325 Mg Tablet) 650 mg PO Q6H PRN PRN Reason: Pain, Mild 1-3,fever,headache Albuterol Sulfate (Albuterol Sulfate 90 Mcg 8 Gm Inhaler) 2 puff INHALE QID PRN PRN Reason: shortness of breath or wheezing Albuterol/Ipratropium (Albuterol/Iprat 2.5/0.5mg 3 Ml Ampul.Neb) 3 ml INHALE RBID [facility] Last Admin: 02/25/25 07:28 Dose: 3 ml Documented By: MEEK Budesonide (Budesonide 0.5 Mg/2 Ml Ampul.Neb) 0.5 mg INHALE ID [facility] Last Admin: 02/25/25 07:31 Dose: 0.5 mg Documented By: MEEK Calcium Carbonate (Calcium Carbonate 750 Mg Tab.Chew) 750 mg PO Q4H PRN PRN Reason: Heartburn Ceftriaxone Sodium (Ceftriaxone Sodium 1 Gm Vial) 1 gm IVPUSH Q24H [facility] Last Admin: 02/24/25 20:21 Dose: 1 gm Documented By: HAVEN Finasteride (Finasteride 5 Mg Tablet) 5 mg PO DAILY [facility] Last Admin: 02/25/25 07:59 Dose: 5 mg Documented By: RUFUS Hydromorphone HCl (Hydromorphone Hcl 0.5 Mg/0.5 Ml Syringe) 0.5 mg IVPUSH Q4H PRN; Protocol PRN Reason: Pain, Severe (Pain Scale 7-10) Lactated Ringer's (Lr) 1,000 mls @ 100 mls/hr IVCONT .Q10H [facility] Last Infusion: 02/25/25 13:09 Dose: 100 mls/hr Documented By: SOCO Magnesium Hydroxide (Milk Of Magnesia 30 Ml Oral.Susp) 30 ml PO DAILY PRN PRN Reason: Constipation Last Admin: 02/25/25 08:02 Dose: 30 ml Documented By: RUFUS Melatonin (Melatonin 3 Mg Tablet) 6 mg PO BEDTIME PRN PRN Reason: Insomnia Last Admin: 02/23/25 21:07 Dose: 6 mg Documented By: VASILE Comments: requested for sleep Montelukast Sodium (Montelukast Sodium 10 Mg Tablet) 10 mg PO BEDTIME [facility] Last Admin: 02/24/25 20:21 Dose: 10 mg Documented By: HAVEN Omeprazole (Omeprazole 20 Mg Capsule.) 20 mg PO DAILY@0630 [facility] Last Admin: 02/25/25 04:38 Dose: 20 mg Documented By: HAVEN Sodium Chloride (0.9 % Sodium Chloride Flush 3 Ml Syringe) 3 ml IVFLUSH QSHIFT [facility] Last Admin: 02/25/25 16:08 Dose: Not Given Documented By: SOCO Non-Admin Reason: IV Running Tamsulosin HCl (Tamsulosin Hcl 0.4 Mg Capsule) 0.4 mg PO DAILY [facility] Last Admin: 02/25/25 07:59 Dose: 0.4 mg Documented By: RUFUS Labs 02/23/25 06:25 02/25/25 15:47 Labs: Laboratory Results - last 24 hr 02/25/25 02/25/25 08:44 15:47 Anion Gap 14 14 Estim Creat Clear Calc 70.9 68.9 Estimated GFR > 60 > 60 Random Glucose 151 H 122 H Calcium 7.8 L 7.9 L Phosphorus 1.4 L 2.4 L Magnesium 1.4 L* 1.7 Microbiology Microbiology Results: Microbiology 02/22/25 18:32 Blood Culture - Preliminary Blood - Venous No growth after 48 hours. 02/22/25 18:32 Blood Culture - Preliminary Blood - Venous No growth after 48 hours. Assessment and Plan (1) Acute kidney injury: Status: Acute (2) Acute urinary retention: Status: Acute Plan 74-year-old male with a past medical history of COPD, BPH, pulmonary nodule presented to the hospital with a chief complaint of abdominal pain for about a week. Admitted for following UTI w/ urinary retention and meeting sepsis criteria Patient was retaining up to 2.15 L. Status post Mojica catheter placement in the ER Has not been urinating much x2 weeks CT showing mild bilateral hydroureteronephrosis Met sepsis criteria with tachycardia and leukocytosis; lactic acid WNL Pt given IVF and started on broad-spectrum antibiotics in the ED Urine cultures negative for growth Was treated with ceftriaxione x4 doses, will stop after 5 days Urology consulted, recommend keeping Mojica in place for 4 weeks Continue Flomax, finasteride Outpatient follow up with urology in 4 weeks for voiding trial Hypomagnesmia, hypophostotemia, hypokalemia Likely secondary to ANGELA in the setting of urinary retention Pt's mag 1.4, phosphorus 1.4, potassium 3.0 Replenished with Mag 2g IV, KPhos x2 Repeat labs in the evening, replenish as necessary Consider nephrology consult if abnormalities persist Post renal ANGELA Creatinine 2.89 at time of presentation, elevated from previous of 0.97 Secondary to urinary retention and reduced p.o. intake Currently resolved after IVF and catheter placement Generalized weakness PT consult for services for catheter care COPD Not in acute exacerbation Continue home inhalers GERD Continue PPI DVT prophylaxis: SubQ heparin Code status: Full code Pt will require continued hospitalization due to continued ANGELA and need to monitor renal function. Quality Stroke Does the patient have a stroke diagnosis?: No VTE Prior VTE?: No VTE Risk Level:: Medical - moderate - high VTE Device Contraindication: Treatment Not Indicated VTE Drug Contraindication: N/A - Med Ordered
[2025-02-25] MEDS: Melatonin 3 MG TABLET 6 MG PO (20:30)
[2025-02-25] MEDS: Montelukast Sodium 10 MG TABLET PO (20:30)
[2025-02-25] MEDS: cefTRIAXone sodium 1 GM VIAL IVPUSH (20:38)
[2025-02-26] VITALS (8 sets, daily range): BP systolic 88–141; BP diastolic 50–76; PULSE 72–91; RESP 15–18; TEMP 36.6–37.1; O2SAT 92–96
[2025-02-26] MEDS: Omeprazole 20 MG CAPSULE.DR PO (05:40)
[2025-02-26 06:34] LABS: Anion Gap 13 (12-20); Blood Urea Nitrogen 10 mg/dL (9-16); Calcium 8.1 mg/dL (8.4-10.2); Carbon Dioxide 26 mmol/L (22-29); Chloride 107 mmol/L (96-108); Creatinine Clr Calc Pharmacy 84.9; Estimated Glomerular Filt Rate > 60; Glucose Random 145 mg/dL (60-115); Magnesium 1.4 mg/dL (1.6-2.6); Potassium 3.6 mmol/L (3.3-5.1); Sodium 142 mmol/L (135-145)
[2025-02-26] MEDS: Magnesium Sulfate/H2O 2 GM/50 ML PIGGYBACK IV ×2 (06:52→08:50)
[2025-02-26] MEDS: Albuterol/Iprat 2.5/0.5MG 3 ML AMPUL.NEB INHALE ×2 (08:04→20:13)
[2025-02-26] MEDS: Budesonide 0.5 MG/2 ML AMPUL.NEB INHALE ×2 (08:04→20:13)
[2025-02-26] MEDS: Finasteride 5 MG TABLET PO (08:15)
[2025-02-26] MEDS: Tamsulosin HCL 0.4 MG CAPSULE PO (08:16)
[2025-02-26] MEDS: Lactated Ringers 1,000 ML 100 ML IVCONT ×2 (08:23→19:45)
--- NOTE | 2025-02-26 08:25 | P.PNIM_ITS ---
Subjective Subjective Date of Service: 02/26/25 Interval History: uti,electrolytic abnormalities Review of Systems no new c/o no fevers Review of Systems: Yes all other systems are reviewed and are negative Physical Exam 2 Vital Signs: Vital Signs: Last Vital Signs Temp 98.5 F 02/26/25 07:16 Pulse 72 02/26/25 08:06 Resp 18 02/26/25 08:06 BP 121/61 02/26/25 07:16 Pulse Ox 93 02/26/25 07:16 O2 Del Method Room Air 02/26/25 07:16 BMI result Body Mass Index 26.4 General: AOx3, no acute distress Resp: CTA bilaterally CVS: S1, S2, RRR GI: +BS, NT, no distention Skin: Warm, dry Neuro: moves all ext. : Mojica in place draining clear urine Extremities: No edema Psych: Appropriate affect Objective Data Active Medications Acetaminophen (Acetaminophen 325 Mg Tablet) 650 mg PO Q6H PRN PRN Reason: Pain, Mild 1-3,fever,headache Albuterol Sulfate (Albuterol Sulfate 90 Mcg 8 Gm Inhaler) 2 puff INHALE QID PRN PRN Reason: shortness of breath or wheezing Albuterol/Ipratropium (Albuterol/Iprat 2.5/0.5mg 3 Ml Ampul.Neb) 3 ml INHALE RBID REPLACED [facility] Last Admin: 02/26/25 08:04 Dose: 3 ml Documented By: JORY Budesonide (Budesonide 0.5 Mg/2 Ml Ampul.Neb) 0.5 mg INHALE RBID REPLACED [facility] Last Admin: 02/26/25 08:04 Dose: 0.5 mg Documented By: JORY Calcium Carbonate (Calcium Carbonate 750 Mg Tab.Chew) 750 mg PO Q4H PRN PRN Reason: Heartburn Ceftriaxone Sodium (Ceftriaxone Sodium 1 Gm Vial) 1 gm IVPUSH Q24H [facility]PLACED [facility] Stop: 02/26/25 21:01 Last Admin: 02/25/25 20:38 Dose: 1 gm Documented By: NGOZI Finasteride (Finasteride 5 Mg Tablet) 5 mg PO DAILY [facility]PLAC[facility] Last Admin: 02/26/25 08:15 Dose: 5 mg Documented By: RUDOLPH Hydromorphone HCl (Hydromorphone Hcl 0.5 Mg/0.5 Ml Syringe) 0.5 mg IVPUSH Q4H PRN; Protocol PRN Reason: Pain, Severe (Pain Scale 7-10) Lactated Ringer's (Lr) 1,000 mls @ 100 mls/hr IVCONT .Q10H [facility]PLACED [facility] Last Admin: 02/26/25 08:23 Dose: 100 mls/hr Documented By: RUDOLPH Magnesium Sulfate (Magnesium Sulfate/H2o) 2 gm in 50 mls @ 25 mls/hr IV ONCE ONE Stop: 02/26/25 08:31 Last Admin: 02/26/25 06:52 Dose: 25 mls/hr Documented By: NGOZI Magnesium Hydroxide (Milk Of Magnesia 30 Ml Oral.Susp) 30 ml PO DAILY PRN PRN Reason: Constipation Last Admin: 02/25/25 08:02 Dose: 30 ml Documented By: RUFUS Melatonin (Melatonin 3 Mg Tablet) 6 mg PO BEDTIME PRN PRN Reason: Insomnia Last Admin: 02/25/25 20:30 Dose: 6 mg Documented By: NGOZI Montelukast Sodium (Montelukast Sodium 10 Mg Tablet) 10 mg PO BEDTIME REPLACED BY [facility] Last Admin: 02/25/25 20:30 Dose: 10 mg Documented By: NGOZI Omeprazole (Omeprazole 20 Mg Capsule.) 20 mg PO DAILY@0630 REPLACED [facility] Last Admin: 02/26/25 05:40 Dose: 20 mg Documented By: NGOZI Sodium Chloride (0.9 % Sodium Chloride Flush 3 Ml Syringe) 3 ml IVFLUSH QSHIFT REPLACED BY [facility] Last Admin: 02/26/25 08:16 Dose: Not Given Documented By: RUDOLPH Non-Admin Reason: IV Running Tamsulosin HCl (Tamsulosin Hcl 0.4 Mg Capsule) 0.4 mg PO DAILY REPLACED [facility] Last Admin: 02/26/25 08:16 Dose: 0.4 mg Documented By: RUDOLPH Labs 02/23/25 06:25 02/26/25 05:56 Labs: Laboratory Results - last 24 hr 02/25/25 02/25/25 02/26/25 08:44 15:47 05:56 Anion Gap 14 14 13 Estim Creat Clear Calc 70.9 68.9 84.9 Estimated GFR > 60 > 60 > 60 Random Glucose 151 H 122 H 145 H Calcium 7.8 L 7.9 L 8.1 L Phosphorus 1.4 L 2.4 L 2.0 L Magnesium 1.4 L* 1.7 1.4 L* Assessment and Plan (1) Acute kidney injury: Status: Acute (2) Acute urinary retention: Status: Acute Plan 74-year-old male with a past medical history of COPD, BPH, pulmonary nodule presented to the hospital with a chief complaint of abdominal pain for about a week. Admitted for following UTI w/ urinary retention and meeting sepsis criteria Patient was retaining up to 2.15 L. Status post Mojica catheter placement in the ER Has not been urinating much x2 weeks CT showing mild bilateral hydroureteronephrosis Met sepsis criteria with tachycardia and leukocytosis; lactic acid WNL Pt given IVF and started on broad-spectrum antibiotics in the ED Urine cultures negative for growth Was treated with ceftriaxione x4 doses, will stop after 5 days Urology consulted, recommend keeping Mojica in place for 4 weeks Continue Flomax, finasteride Outpatient follow up with urology in 4 weeks for voiding trial Hypomagnesmia, hypophostotemia, hypokalemia Likely secondary to ANGELA in the setting of urinary retention Pt's mag 1.4, phosphorus 2.0, potassium 3.6. Replenished with Mag 2g IV, KPhos x2 Repeat labs in the evening, replenish as necessary Consider nephrology consult if abnormalities persist Post renal ANGELA Creatinine 2.89 at time of presentation, elevated from previous of 0.97 Secondary to urinary retention and reduced p.o. intake Currently resolved after IVF and catheter placement Generalized weakness PT consult for services for catheter care COPD Not in acute exacerbation Continue home inhalers GERD Continue PPI DVT prophylaxis: SubQ heparin Code status: Full code Pt will require continued hospitalization due to continued ANGELA and need to monitor renal function. Quality Stroke Does the patient have a stroke diagnosis?: No VTE Prior VTE?: No VTE Risk Level:: Medical - moderate - high VTE Device Contraindication: Treatment Not Indicated VTE Drug Contraindication: N/A - Med Ordered
[2025-02-26] MEDS: Magnesium Oxide 400 MG TABLET PO ×2 (08:50→17:57)
[2025-02-26] MEDS: Sodium,Potassium Phosphates POWD.PACK 1 PACKET PO ×4 (08:51→19:48)
[2025-02-26] MEDS: Montelukast Sodium 10 MG TABLET PO (19:48)
[2025-02-26] MEDS: cefTRIAXone sodium 1 GM VIAL IVPUSH (19:48)
[2025-02-26] MEDS: 0.9 % Sodium Chloride Flush 3 ML SYRINGE IVFLUSH (19:50)
[2025-02-26] MEDS: Milk of Magnesia 30 ML ORAL.SUSP PO (19:56)
[2025-02-27] VITALS (8 sets, daily range): BP systolic 130–147; BP diastolic 60–80; PULSE 77–100; RESP 16–20; TEMP 36.3–37; O2SAT 92–96
[2025-02-27] MEDS: Lactated Ringers 1,000 ML 100 ML IVCONT (05:29)
[2025-02-27] MEDS: Omeprazole 20 MG CAPSULE.DR PO (05:32)
[2025-02-27 07:39] LABS: Anion Gap 13 (12-20); Blood Urea Nitrogen 10 mg/dL (9-16); Calcium 8.5 mg/dL (8.4-10.2); Carbon Dioxide 27 mmol/L (22-29); Chloride 106 mmol/L (96-108); Estimated Glomerular Filt Rate > 60; Glucose Random 105 mg/dL (60-115); Magnesium 1.9 mg/dL (1.6-2.6); Potassium 4.1 mmol/L (3.3-5.1); Sodium 142 mmol/L (135-145)
[2025-02-27] MEDS: Albuterol/Iprat 2.5/0.5MG 3 ML AMPUL.NEB INHALE ×2 (08:04→19:53)
[2025-02-27] MEDS: Budesonide 0.5 MG/2 ML AMPUL.NEB INHALE ×2 (08:04→19:53)
[2025-02-27] MEDS: Tamsulosin HCL 0.4 MG CAPSULE PO (08:11)
[2025-02-27] MEDS: Sodium,Potassium Phosphates POWD.PACK 1 PACKET PO ×4 (08:11→19:46)
[2025-02-27] MEDS: Finasteride 5 MG TABLET PO (08:11)
[2025-02-27] MEDS: Magnesium Oxide 400 MG TABLET PO ×2 (08:11→16:07)
[2025-02-27] MEDS: 0.9 % Sodium Chloride Flush 3 ML SYRINGE IVFLUSH (08:14)
--- NOTE | 2025-02-27 12:04 | MHC.CM.PN ---
Addendum entered by Kenna Otto RN 02/27/25 16:25: CM MET W/PT'S SISTER ABHI AND PITO AT BEDSIDE, ABHI IS IN WC AND HAS DIFFICULTY WALKING/GETTING AROUND AND UNABLE TO ASSIST PT AT HOME. PITO ALSO REPORTS HE IS UNABLE TO ASSIST AT LEAST TWICE A DAY THAT WOULD BE NEEDED. Addendum entered by Kenna Otto RN 02/27/25 15:52: PT DC CANCELLED, PT UNABLE TO MANAGE WALLACE CATH INDEPENDENTLY, WILL NEED STR/DETENTION STAY AT SNF, REF PLACED, CM ATTEMPTED TO CONTACT PT'S SISTER AT NUMBER ON FILE TO SEE IF PT'S SISTER/PITO WOULD BE ABLE TO AND WILLING TO ASSIST W/CATHETER, NO ANSWER AND DETAILED MESSAGE LEFT.CM AWAITING CALL BACK. Original Note: IMM 02/27/25 DELIVERED TO BEDSIDE, PT TO BE MEDICALLY CLEARED FOR DC HOME W/NEW COMFORT PLUS FOR SN/PT, PT WILL CONTACT FAMILY FOR TRANSPORT
--- NOTE | 2025-02-27 14:53 | P.DS_ITS ---
DS: Providers Provider Date of Service: 02/28/25 Date of admission: 02/22/25 20:10 Date of discharge: 02/28/25 Primary care physician: Thaddeus Oreilly MD Consults: 02/22/25 20:10 Consult to Urology Routine Consulting Provider: [facility] Reason for consultation: urine retention Attending physician on discharge: Arthur Chris Discharging clinician: Arthur Chris DS: Diagnosis Discharge Diagnosis (1) Acute kidney injury: Status: Acute (2) Acute urinary retention: Status: Acute DS: Summary Hospital Course Hospital Course: hpi:74-year-old male with a past medical history of COPD, BPH, pulmonary nodule presented to the hospital with a chief complaint of abdominal pain for about a week. Patient mentions that he has been having difficulty urinating for about a week intermittently and has been having gradual swelling in his abdomen. Pain is located more so in the lower abdomen. Went to see his PCP this morning and asked him to go to the ER for further evaluation. Patient denies any chest pain or palpitations. Denies any fevers. Denies any nausea vomiting or diarrhea. Review of all other systems is negative except mentioned above ER course: Per ER physician, patient noted to have lower abdominal distension; tender on palpation; bladder scan showed 2.1 L of urine; Mojica catheter was placed. Urinalysis abnormal consistent with UTI. Given antibiotics. Also noted to have ANGELA. Hospital course: Patient was admitted for ANGELA, urinary retention,suspected UTI -patient had tachycardia and leucocytosis( sepsis less likely -tachycardia likely due discomfort due to urinary retention ):patient was given Mojica, started on Flomax, Proscar, urine and blood cultures sent as well as received IV antibiotic in addition seen by Urology, ct abd:Mild bilateral hydroureteronephrosis with subcentimeter renal calculi, left more than right measuring no more than 5 mm.: Recommended to continue Flomax and Proscar, completed antibiotics, patient is to follow up with Urology out patiently in 3-4 weeks for voiding trial. Multiple electrolytic abnormalities in the setting of ANGELA and urinary retention: Patient electrolyte was repleted improved significantly. We will give limited phosphorus supplements as well as magnesium for home, monitor electrolytes outpatient with PCP. Discussed with the Urology no further need of antibiotics- since blood culture negative, urine culture negative as well as UA shows no bacteriuria.patient received 5 days of iv antibiotics. ANGELA resolved. Encouraged for hydration and p.o. intake. patient going rehab-unable to manage Mojica as well as his sister is also not able to help currently. plan: Continue Flomax, Proscar Voiding trial in 4 weeks, follow up with Urology Monitor BMP outpatient as well as electrolytes If any new symptoms patient was told to go to nearest emergency room for further evaluation. Above management discussed with the patient detail length he understand and in agreement with the above plan, time spent 40 minute, all question answered, staff was present during conversation. Time Attestation Total time managing care of this patient today: 40 mintues. Discharge Coordination Time (in mins): 40 min Quality: Safe Use of Opioids Does Pt have an Active Cancer Diagnosis on the Problem List?: No Quality: Stroke Does the patient have a stroke diagnosis?: No Physical Exam Vital Signs: Vital Signs: Last Vital Signs Temp 97.4 F 02/27/25 11:04 Pulse 77 02/27/25 11:04 Resp 18 02/27/25 11:04 BP 131/60 02/27/25 11:04 Pulse Ox 92 02/27/25 11:04 O2 Del Method Room Air 02/27/25 11:04 BMI result Body Mass Index 26.4 General: AOx3, no acute distress Resp: CTA bilaterally CVS: S1, S2, RRR GI: +BS, NT, no distention Skin: Warm, dry Neuro: moves all ext. : Mojica in place draining clear urine Extremities: No edema Psych: Appropriate affect DS: Data Data Completed and Pending Labs on day of discharge: Laboratory Results - last 24 hr 02/27/25 07:00 Hold Purple Top SEE NOTE Sodium 142 Potassium 4.1 Chloride 106 Carbon Dioxide 27 Anion Gap 13 BUN 10 Creatinine 0.83 Estim Creat Clear Calc 88.0 Estimated GFR > 60 Random Glucose 105 Calcium 8.5 Phosphorus 2.0 L Magnesium 1.9 Preliminary micro results at discharge 02/22/25 18:32 Blood Culture - Preliminary Blood - Venous No growth after 48 hours. 02/22/25 18:32 Blood Culture - Preliminary Blood - Venous No growth after 48 hours. Imaging Chest x-ray: My impression: ct abd: 1. Mild bilateral hydroureteronephrosis with subcentimeter renal calculi, left more than right measuring no more than 5 mm. 2. Possible mildly diffuse colitis. Discharge Plan Discharge Anticipated Discharge Date/Time: 02/27/25 11:54 Patient Disposition: Xfer SNF Discharge Diagnosis: uti ,angela, urinary retention Referrals: [facility] [Outside] - 1 Day Referral Note: [facility] TER[facility] [Outside] - 1 Month Referral Note: FOLLOWING FOR HOME SERVICES Rui Lindsey MD [Physician, Urology] - 1 Week Thaddeus Oreilly MD [Primary Care Provider, Internal Medicine] - 1 Week Discharge Medications: New tamsulosin 0.4 mg Capsule 0.4 mg PO BEDTIME 90 Days Qty: 90 0RF finasteride 5 mg tablet 5 mg PO DAILY 90 Days Qty: 90 0RF Rx Instructions: Daily tablet magnesium oxide 400 mg (241.3 mg magnesium) Tablet 400 mg PO BIDPC Qty: 14 0RF potassium, sodium phosphates [Phos-NaK] 280-160-250 mg Powder In Packet 1 packet PO QID Qty: 12 0RF Continued albuterol sulfate [Ventolin HFA] 90 mcg/actuation HFA aerosol inhaler 2 puff inhalation QID PRN (Reason: shortness of breath or wheezing) acetaminophen 325 mg Tablet 650 mg PO Q6H PRN (Reason: Pain) omeprazole 20 mg capsule,delayed release(DR/EC) 20 mg PO DAILY@0630 (DME) nebulizers Misc See Rx Instructions .ROUTE Rx Instructions: As directed montelukast [Singulair] 10 mg tablet 10 mg PO BEDTIME 30 Days Qty: 30 11RF budesonide 0.5 mg/2 mL suspension for nebulization 0.5 mg inhalation BID 30 Days Qty: 120 11RF ipratropium-albuterol 0.5 mg-3 mg(2.5 mg base)/3 mL solution for nebulization 3 ml inhalation BID 30 Days Qty: 180 11RF Discharge Orders: Discharge Order (Routine); Ordered 02/28/25 Ordered By: Arthur Chris Diet: Advance to usual diet Activity on Discharge: As tolerated Stand Alone Forms: Patient Portal Discharge page Print Language: Telugu Other Ambulatory Orders: Basic Metabolic Panel (Routine) Timeframe: 1 Week Facility: [facility] - Location: Laboratory Ordered By: Arthur Chris Magnesium (Routine) Timeframe: 1 Week Facility: [facility] - Location: Laboratory Ordered By: Arthur Chris Phosphorus (Routine) Timeframe: 1 Week Facility: [facility] - Location: Laboratory Ordered By: Arthur Chris Care Plan Goals: As below Health Concerns: As below Plan of Treatment: Continue Flomax 0.4 mg daily Proscar 5 mg daily Added limited supply for magnesium and Neutra-Phos. Monitor BMP and magnesium level as well as phosphorus outpatient with PCP. Continue Mojica-voiding trial outpatient with Urology. Follow-up with PCP outpatient Assessment: As above . Patient Instructions: Mojica Catheter Care, Acute Kidney Injury (DC), Urinary Retention in Men (ED), Urinary Tract Infection in Men (DC), Mojica Catheter Placement and Care (DC), Mojica Catheter Placement and Care (GEN), Urinary Leg Bag (GEN)
--- NOTE | 2025-02-27 15:20 | P.CDIM_ITS ---
PROVIDER RESPONSE TEXT: To clarify, the appropriate diagnosis supported by the clinical indicators: Other (explain): no sepsis ,tachycardia likely due discomfort due to urinary retention QUERY TEXT: PHYSICIAN'S DOCUMENTATION REQUEST Date of Query: 02/26/2025 11:59 AM EDT Patient Name: Sergo Woods Admit Date: 02/23/2025 Dear Arthur Chris MD, A review of the medical record indicates additional documentation may be needed. Please review below and update the documentation accordingly. Clinical indicators: Progress note 02/26/25 - UTI w/retention and meeting sepsis criteria. Met Sepsis criteria with tachycardia and leukocytosis; lactic acid WNL. Pt given IVF and started on broad spectrum antibiotics in the Ed. WBC 15.3 Temp 97 HR 113 RR 20 Sepsis Systemic manifestations of infection, with 2 or more SIRS criteria which include: Fever > 100.4?F or hypothermia < 96.8?F Leukocytosis - WBC > 12,000 or leukopenia, WBC < 4,000, or > 10% bands Tachycardia- > 90 beats/minute Tachypnea- RR > 20 breaths/minute or PaCO2 < 32mmHg Based on the above information and the recognized standard for sepsis, could you please clarify if this diagnoses is still accurate and reflective of the patient's condition to ensure quality of the medical record Sepsis confirmed, resolved, suspected, possible, probable, cannot rule out etc. Other specified Other (explain) Clinically unable to determine (explain) Thank you, Neva Cifuentes, CCS, CDIS Use of terms such as suspected, likely, concern for, or probable (associated with a specific diagnosis that is being evaluated, monitored, or treated as if it exists) are acceptable and can be coded in the inpatient setting, when documented at the time of discharge. Please use your independent medical judgment in providing your response. THIS QUERY IS PART OF THE PERMANENT MEDICAL RECORD
--- NOTE | 2025-02-27 15:24 | W.MHC.F2F ---
Service Date Service Date: 02/27/25 Encounter Date of encounter: 02/27/25 Encounter: urinary retention Reasons for Services Signs and symptoms assessed: Any new abdominal pain or fever or urinary complaints Reason for custodial: medication management, medication treatment and teach disease management Reason for physical therapy: home safety and mobility, therapeutic exercises, restore joint function, gait/transfer training, assess need for DME, ADL training, energy conservation and other MD Overseeing Care: Thaddeus Oreilly Homebound: Leaving the home is medically contraindicated at this time without the asist of a device and/or another person due th the listed conditions above and below. Reason homebound: weakness related to hospital stay Homebound supporting statement: Patient is generalised weak post hospitlisation and need help with going to appointments and labs draws as well as PT. Certification: Based on the above findings, I certify that this patient is confined to the home and needs intermittent custodial care, physical therapy and/or speech therapy, or continues to need occupational therapy. The patient is under my care, and I have initiated the establishment of the plan of care. The patient will be followed by a physician who will periodically review the plan of care. Time Spent With Patient Time: Total time managing care of this patient today ____ minutes.
--- NOTE | 2025-02-27 17:00 | HO.PM.IMPN ---
Subjective Subjective Date of Service: 02/28/25 Interval History: urinary retention Review of Systems Denies any new complaint No abdominal pain nausea vomiting Physical Exam Vital Signs: Vital Signs: Last Vital Signs Temp 98.1 F 02/27/25 16:00 Pulse 89 02/27/25 16:00 Resp 18 02/27/25 16:00 BP 130/67 02/27/25 16:00 Pulse Ox 94 02/27/25 16:00 O2 Del Method Room Air 02/27/25 16:00 BMI result Body Mass Index 26.4 General: AOx3, no acute distress Resp: CTA bilaterally CVS: S1, S2, RRR GI: +BS, NT, no distention Skin: Warm, dry Neuro: moves all ext. : Ennis in place draining clear urine Extremities: No edema Psych: Appropriate affect Objective Data Active Medications Acetaminophen (Acetaminophen 325 Mg Tablet) 650 mg PO Q6H PRN PRN Reason: Pain, Mild 1-3,fever,headache Albuterol Sulfate (Albuterol Sulfate 90 Mcg 8 Gm Inhaler) 2 puff INHALE QID PRN PRN Reason: shortness of breath or wheezing Albuterol/Ipratropium (Albuterol/Iprat 2.5/0.5mg 3 Ml Ampul.Neb) 3 ml INHALE RBID [facility] Last Admin: 02/27/25 08:04 Dose: 3 ml Documented By: RISHI Budesonide (Budesonide 0.5 Mg/2 Ml Ampul.Neb) 0.5 mg INHALE RBID [facility] Last Admin: 02/27/25 08:04 Dose: 0.5 mg Documented By: RISHI Calcium Carbonate (Calcium Carbonate 750 Mg Tab.Chew) 750 mg PO Q4H PRN PRN Reason: Heartburn Finasteride (Finasteride 5 Mg Tablet) 5 mg PO DAILY [facility] Last Admin: 02/27/25 08:11 Dose: 5 mg Documented By: YIN Magnesium Hydroxide (Milk Of Magnesia 30 Ml Oral.Susp) 30 ml PO DAILY PRN PRN Reason: Constipation Last Admin: 02/26/25 19:56 Dose: 30 ml Documented By: ADINA Magnesium Oxide (Magnesium Oxide 400 Mg Tablet) 400 mg PO BIDPC [facility] Last Admin: 02/27/25 16:07 Dose: 400 mg Documented By: YIN Melatonin (Melatonin 3 Mg Tablet) 6 mg PO BEDTIME PRN PRN Reason: Insomnia Last Admin: 02/25/25 20:30 Dose: 6 mg Documented By: NGOZI Montelukast Sodium (Montelukast Sodium 10 Mg Tablet) 10 mg PO BEDTIME [facility] Last Admin: 02/26/25 19:48 Dose: 10 mg Documented By: ADINA Omeprazole (Omeprazole 20 Mg Capsule.Dr) 20 mg PO DAILY@0630 [facility] Last Admin: 02/27/25 05:32 Dose: 20 mg Documented By: ADINA Potassium Phos/Sodium Phos (Sodium,Potassium Phosphates Powd.Pack) 1 packet PO QID [facility] Last Admin: 02/27/25 16:06 Dose: 1 packet Documented By: YIN Sodium Chloride (0.9 % Sodium Chloride Flush 3 Ml Syringe) 3 ml IVFLUSH QSHIFT [facility] Last Admin: 02/27/25 08:14 Dose: 3 ml Documented By: YIN Tamsulosin HCl (Tamsulosin Hcl 0.4 Mg Capsule) 0.4 mg PO DAILY [facility] Last Admin: 02/27/25 08:11 Dose: 0.4 mg Documented By: YIN Labs 02/23/25 06:25 02/27/25 07:00 Labs: Laboratory Results - last 24 hr 02/27/25 07:00 Hold Purple Top SEE NOTE Anion Gap 13 Estim Creat Clear Calc 88.0 Estimated GFR > 60 Random Glucose 105 Calcium 8.5 Phosphorus 2.0 L Magnesium 1.9 Assessment and Plan (1) Acute kidney injury: Status: Acute (2) Acute urinary retention: Status: Acute Plan 74-year-old male with a past medical history of COPD, BPH, pulmonary nodule presented to the hospital with a chief complaint of abdominal pain for about a week. Admitted for following UTI w/ urinary retention not septic Patient was retaining up to 2.15 L. Status post Ennis catheter placement in the ER Has not been urinating much x2 weeks CT showing mild bilateral hydroureteronephrosis Met sepsis criteria with tachycardia and leukocytosis; lactic acid WNL Pt given IVF and started on broad-spectrum antibiotics in the ED Urine cultures negative for growth Was treated with ceftriaxione x4 doses, will stop after 5 days Urology consulted, recommend keeping Ennis in place for 4 weeks Continue Flomax, finasteride Outpatient follow up with urology in 4 weeks for voiding trial Hypomagnesmia, hypophostotemia, hypokalemia Likely secondary to ANGELA in the setting of urinary retention Pt's mag 1.4, phosphorus 2.0, potassium 3.6. Replenished with Mag 2g IV, KPhos x2 Repeat labs in the evening, replenish as necessary Consider nephrology consult if abnormalities persist Post renal ANGELA Creatinine 2.89 at time of presentation, elevated from previous of 0.97 Secondary to urinary retention and reduced p.o. intake Currently resolved after IVF and catheter placement Generalized weakness PT consult for services for catheter care COPD Not in acute exacerbation Continue home inhalers GERD Continue PPI DVT prophylaxis: SubQ heparin Code status: Full code Pt will require continued hospitalization -patient unable to learn ennis use /sister is unavailable. Quality Stroke Does the patient have a stroke diagnosis?: No VTE Prior VTE?: No VTE Risk Level:: Medical - moderate - high VTE Device Contraindication: Treatment Not Indicated VTE Drug Contraindication: N/A - Med Ordered
[2025-02-27] MEDS: Montelukast Sodium 10 MG TABLET PO (19:46)
[2025-02-28 03:15] VITALS: BP 149/71; PULSE 87; RESP 18; TEMP 37.7; O2SAT 93
[2025-02-28] MEDS: Omeprazole 20 MG CAPSULE.DR PO (05:56)
[2025-02-28 07:34] VITALS: BP 147/65; PULSE 85; RESP 20; TEMP 36.4; O2SAT 93
[2025-02-28] MEDS: Budesonide 0.5 MG/2 ML AMPUL.NEB INHALE (07:56)
[2025-02-28] MEDS: Albuterol/Iprat 2.5/0.5MG 3 ML AMPUL.NEB INHALE (07:56)
[2025-02-28 07:58] VITALS: PULSE 85; RESP 20
[2025-02-28] MEDS: Finasteride 5 MG TABLET PO (08:35)
[2025-02-28] MEDS: Sodium,Potassium Phosphates POWD.PACK 1 PACKET PO ×2 (08:35→14:01)
[2025-02-28] MEDS: Magnesium Oxide 400 MG TABLET PO (08:36)
[2025-02-28] MEDS: Tamsulosin HCL 0.4 MG CAPSULE PO (08:36)
[2025-02-28] MEDS: 0.9 % Sodium Chloride Flush 3 ML SYRINGE IVFLUSH (08:36)
--- NOTE | 2025-02-28 10:56 | MHC.CM.PN ---
[facility] OFFERING A BED, PT'S SISTER ABHI UPDATED AT [phone] FOR S TRANSPORT.
[2025-02-28 12:00] VITALS: BP 111/56; PULSE 84; RESP 20; TEMP 36.4; O2SAT 93
[2025-02-28 15:51] VITALS: BP 123/57; PULSE 89; RESP 18; TEMP 36.7; O2SAT 94
== END 2025-02-28 16:45 | disposition skilled nursing facility (03) | DRG 690 ==
LOC: HO.ED 20:09 → HO.EDOVER 20:29 → HO.IMC 21:12
PROVIDERS: Physician Assistant; Student in an Organized Health Care Education/Training Program; Admitting Provider Hospitalist; Emergency Provider Emergency Medicine Emergency Medical Services; PCP Internal Medicine Medical Oncology; Visit Provider Internal Medicine
DX: N13.6 Pyonephrosis (principal); N17.9 Acute kidney failure, unspecified; N40.1 Benign prostatic hyperplasia with lower urinary tract symptoms; E83.39 Other disorders of phosphorus metabolism; E83.42 Hypomagnesemia; I49.3 Ventricular premature depolarization; K21.9 Gastro-esophageal reflux disease without esophagitis; J44.9 Chronic obstructive pulmonary disease, unspecified; R33.8 Other retention of urine; Z87.891 Personal history of nicotine dependence; Z79.899 Other long term (current) drug therapy
CPT/HCPCS: 36415; 74176; 80048; 80053; 80076; 81001; 83605; 83735; 84100; 85025; 87040; 87086; 93306; 94640; 97161; 99285; J0696; J3475; J7120; Q9957

== ENCOUNTER → 2025-02-22 19:48 | Outpatient (BNV) | payer MEDICARE, MEDICAID, SELFPAY | PROVIDERS: Admitting Provider Hospitalist; Emergency Provider Emergency Medicine Emergency Medical Services; PCP Internal Medicine Medical Oncology; Visit Provider Radiology Diagnostic Radiology | DX: N13.2 Hydronephrosis with renal and ureteral calculous obstruction (principal) | CPT/HCPCS: 74176 ==

== ENCOUNTER 2025-02-22 20:10 | Outpatient (BNV) | payer MEDICARE, MEDICAID, SELFPAY | END 2025-02-25 09:43 | PROVIDERS: Admitting Provider Hospitalist; Emergency Provider Emergency Medicine Emergency Medical Services; PCP Internal Medicine Medical Oncology; Visit Provider Internal Medicine | DX: R94.31 Abnormal electrocardiogram [ECG] [EKG] (principal) | CPT/HCPCS: 93306 ==

== ENCOUNTER → 2025-02-22 20:10 | Outpatient (BNV) | payer MEDICARE, MEDICAID, SELFPAY | PROVIDERS: Admitting Provider Hospitalist; Emergency Provider Emergency Medicine Emergency Medical Services; PCP Internal Medicine Medical Oncology; Visit Provider Urology | DX: R33.8 Other retention of urine (principal); N17.9 Acute kidney failure, unspecified | CPT/HCPCS: 99222 ==

== ENCOUNTER → 2025-02-22 20:10 | Outpatient (BNV) | payer MEDICARE, MEDICAID, SELFPAY | PROVIDERS: Admitting Provider Hospitalist; Emergency Provider Emergency Medicine Emergency Medical Services; PCP Internal Medicine Medical Oncology; Visit Provider Student in an Organized Health Care Education/Training Program | DX: N17.9 Acute kidney failure, unspecified (principal); R33.8 Other retention of urine | CPT/HCPCS: 99223; 99232; 99233 ==

== ENCOUNTER 2025-05-23 09:38 | Outpatient (AMB) | payer MEDICARE, MEDICAID, SELFPAY ==
--- OUTSIDE RECORDS SUMMARY | 2025-04-26 10:30 | XMS_ITS ---
Author Organization Thaddeus Oreilly III, MD Address [address] [place] [address] [address] [place] [address] Care Team Providers Care Rebeamer Name Role Phone Thaddeus Oreilly Primary Care [...] Omeprazole 20 MG TAKE 1 CAPSULE BY [facility] EVERY DAY 30 MINUTES BEFORE BREAKFAST Active Social History Tobacco Use: Social History Observation Description Date Details (start date - stop date) Former Smoker NA - NA Sex Assigned At : Social History Observation Description Sex Assigned At Male Tobacco Control (Standard) Question Answer Notes Tobacco use: Former smoker How long has it been since you last smoked? Manjit ter than 10 years Additional Findings: Tobacco non-user Ex-cigaret te smoker Vital Signs Temperature 97.2 degrees Fahrenheit 04/26/20 25 Blood pressure systolic 107 mm Hg 04/26/20 25 Blood pressure diastolic 63 mm Hg 025 Heart Rate 99 /min 04/26/2025 Height 74 in 04/26/2025 Weight 200 lbs 04/26/2025 BMI 25.68 kg/m2 04/26/2025 Encounters Encounter Location Date Provider Diagnosis Thaddeus Oreilly III, MD [address] [place] [address] [place] [address] 04/26/2025 Thaddeus Oreilly Chronic obstructive pulmonary disease, unspecified COPD type J44.9 ; Urine retention R33.9 ; Former smoker Z87.891 ; Overweight (BMI 25.0-29.9) E66.3 and Benign prostatic hypertrophy N40.0 Assessments Encounter Date Diagnosis (ICD Code) Assessment Notes Treatment Notes Treatment Clinical Notes 04/26/2025 Chronic obstructive pulmonary disease, unspecified COPD type (ICD-10 - J44.9) He will continue to see the cellar supervisor regularly. The 6 mm pulmonary nodule will be followed carefully. He is no longer smoking. He will exercise regularly. He will continue to use his nebulizer and his new inhaler. 04/26/2025 Urine retention (ICD-10 - R33.9) He was acutely ill and was taken to the emergency room at [facility] across the street from my office [...] Omeprazole 20 MG TAKE 1 CAPSULE BY [facility] EVERY DAY 30 MINUTES BEFORE BREAKFAST Next Appt Details Follow Up: 3 Weeks, Reason: ov Provider Name:Thaddeus Langstonrne, 06/10/2025 03:15:00 PM, [address] [place] [address] [address], [place], [address], Provider Name:Thaddeus Denilson, 11/06/2025 03:00:00 PM, [address] [place] [address] [address], [place], [address], Progress Notes * CURT WOODSDOB:1950 (74 yo M)Acc No.[id number]:04/26/2025 Patient: CURT BERRY Provider: Roddy Oreilly MD :1950 A ge:74 Y S ex:Male Date:04/26/2025 Address:[address] [place] [phone] Subjective: * Chief Complaints: * B enign prostatic hypertrophyHospitalization February 22, 2025 for urine retentionGERDCOPD * HPI: C OVID-19 Screening: Taina zaavla was admitted to [facility] from February 22 [place] February 28, 2025 [...] dditional Findings: Tobacco non-user E x-cigarette smoker H lucas was born and raised in [facility]. 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 * Medications: T akingVentolin HFA 108 (90 [...] Blood Small (1+) A Negative - Specific [place] - Urine 1.020 1.005-1.025 - Urine Protein [...] 1.0 - mg/dL?Bilirubin Direct0.30.0-0.5 - mg/dL?Aspartate Amino Gyrbdopobvx943-32 - U/L?Alanine Uippbwwmqtcdbxqc184-51 - U/L?Total Protein7.46.5-8.0 - g/dL?Albumin Level4.33.5-5.0 - g/dL?Alkaline Hsherdtkeya5911-135 - U/L ???Lab:Blood Culture (First) (Order Date [...] was taken to the emergency room at [facility] across the street from my office [...] otes :He will continue to see the cellar supervisor regularly. The 6 mm pulmonary nodule [...] 0 04/26/2025 Generated for Hayden wiley/Shawn/Deshawnitting on: 0 05/23/2025 11:17 AM EDT History and Physical Notes * HPI [...]
--- OUTSIDE RECORDS SUMMARY | 2025-04-30 11:40 | XMS_ITS ---
Author Organization Thaddeus Oreilly III, MD Address [address] [place] [address] [address] [place] [address] Care Team Providers Care News Agent Name Role Phone Thaddeus Oreilly Primary Care Provider REASON FOR VISIT Refills [...] Omeprazole 20 MG TAKE 1 CAPSULE BY [facility] EVERY DAY 30 MINUTES BEFORE BREAKFAST [...] Provider Diagnosis Thaddeus Oreilly III, MD [address] [place] [address] [address] [place] [phone] 04/30/2025 Thaddeus Oreilly Plan Of Treatment Next Appt Details Provider Name:Thaddeus Oreilly, 06/10/2025 03:15:00 PM, [address] [place] [address] [address], [place], [address], Provider Name:Thaddeus Oreilly, 11/06/2025 03:00:00 PM, [address] [place] [address] [address], [place], [address], Progress Notes * CURT WOODSDOB:1950 (74 yo M)Acc No.[id number]:04/30/2025 Patient: CURT BERRY :1950 A ge:74 Y S ex:Male Address:[address] [place] [address] [place], [address] Subjective: * Chief Complaints: * R efills [...] * true * Date: Generated for Hayden wiley/Shawn/Brice on: 0 05/23/2025 11:17 AM EDT
--- OUTSIDE RECORDS SUMMARY | 2025-05-01 12:48 | XMS_ITS ---
Author Organization Thaddeus Oreilly III, MD Address [address] [place] [address] [place] [address] Care Team Providers Care Instructor Dancing Name Role Phone Tahddeus Oreilly Primary Care Provider [phone] Medications Medication SIG (Take, Route, Frequency, Duration) [...] Date Provider Diagnosis Thaddeus Oreilly III, MD [address] [place] [address] [place] [address] 05/01/2025 Thaddeus Oreilly Plan Of Treatment Medication Medication Name Sig Start Date Stop Date Notes Alfuzosin HCl ER 10 MG 1 tablet Orally O nce a day for 30 days 05/01/2025 04/26/2026 Finasteride 5 MG 1 tablet Orally Once a day for 30 days 05/01/2025 04/26/2026 Next Appt Details Provider Name:Thaddeus Oreilly, 06/10/2025 03:15:00 PM, [address] [place] [address] [place], [address], Provider Name:Thaddeus Oreilly, 11/06/2025 03:00:00 PM, [address] [place] [address] [place], [address], Progress Notes * CURT WOODSDOB:1950 (74 yo M)Acc No.[id number]:05/01/2025 Patient: CURT BERRY :1950 A ge:74 Y S ex:Male Address:[address] [place] [address], [address] * Refills Start Finasteride Tablet, 5 MG, Orally, 30 Tablet, 1 tablet, Once a day, 30 days, Refills=11 Start Alfuzosin HCl ER Tablet Extended Release 24 Hour, 10 MG, Orally, 30 Tablet, 1 tablet, Once a day, 30 days, Refills=11 * true * Date: Generated for Hayden wiley/Shawn/Deshawnitting on: 0 05/23/2025 11:16 AM EDT
--- OUTSIDE RECORDS SUMMARY | 2025-05-13 13:00 | XMS_ITS ---
Author Organization Thaddeus Oreilly III, MD Address [address] [place] [address] [address] Yakelin [place] [phone] Care Team Providers Care Research Editor Name Role Phone Thaddeus Oreilly Primary Care [...] Omeprazole 20 MG TAKE 1 CAPSULE BY [facility] EVERY DAY 30 MINUTES BEFORE BREAKFAST Active [...] Date Provider Diagnosis Thaddeus Oreilly III, MD [address] [place] [address] [place] [phone] 05/13/2025 Thaddeus Oreilly Chronic obstructive pulmonary disease, [...] Omeprazole 20 MG TAKE 1 CAPSULE BY [facility] EVERY DAY 30 MINUTES BEFORE BREAKFAST Roflumilast [...] DAYS Inhalation Next Appt Details Provider Name:Thaddeus Oreilly, 06/10/2025 03:15:00 PM, [address] [place] [address] [address], [place], [phone], Provider Name:Thaddeus Oreilly, 11/06/2025 03:00:00 PM, [address] [place] [address] [address], [place], [phone], Progress Notes * REGAN WOODS:1950 (74 yo M)Acc No.[id number]:05/13/2025 Progress Notes Patient: CURT BERRY Provider: Roddy Oreilly MD :1950 A ge:74 Y S ex:Male Date:05/13/2025 Address:[address] [place] [address], [id number] Subjective: * Chief Complaints: * 1 . [...] H e was born and raised in [facility]. 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 * Medications: T aking Tylenol 325 MG [...] MD Date: 0 05/13/2025 Generated for Hayden wiley/Shawn/Deshawnitting on: 05/23/2025 11:17 AM EDT History and Physical [...]
--- OUTSIDE RECORDS SUMMARY | 2025-05-21 11:00 | XMS_ITS ---
Author Organization Thaddeus Oreilly III, MD Address [address] [place] [address] [address] [place] [address] Care Team Providers Care Technical Education Teacher Name Role Phone Thaddeus Oreilly Primary Care [...] Omeprazole 20 MG TAKE 1 CAPSULE BY [facility] EVERY DAY 30 MINUTES BEFORE BREAKFAST Active [...] Date Provider Diagnosis Thaddeus Oreilly III, MD [address] [place] [address] [place] [address] 05/21/2025 Thaddeus Oreilly Benign prostatic hypertrophy N40.0 [...] was taken to the emergency room at [facility] across the street from my office [...] J44.9) He will continue to see the potato sorter regularly. The 6 mm pulmonary nodule will [...] Omeprazole 20 MG TAKE 1 CAPSULE BY [facility] EVERY DAY 30 MINUTES BEFORE BREAKFAST Ventolin [...] Up: 3 Weeks, Reason: OV Provider Name:Thaddeus Oreilly, 06/10/2025 03:15:00 PM, [address] [place] [address] [address], [place], [address], Provider Name:Thaddeus Oreilly, 11/06/2025 03:00:00 PM, [address] [place] [address] [address], [place], [address], Progress Notes * CURT WOODSDOB:1950 (74 yo M)Acc No.[id number]:05/21/2025 Progress Notes Patient: CURT BERRY Provider: Roddy Oreilly MD :1950 A ge:74 Y S ex:Male Date:05/21/2025 Address:[address] [place] [id number] Subjective: * Chief Complaints: * G erdCopdBenign prostatic hypertrophyOverweightUrine retention, Mojica catheter in place * HPI: C OVID-19 Screening: He returns to the office for medical management.In February of 2025 he presented to the office with severe urinary retention and was admitted to the hospital. He was discharged at the end of February of this matter and has been in rrehabilitation in [place]. He has been home for 2 weeks. He is receiving home services from [facility]. He continues to have an indwelling Mojica [...] Taina zavala was born and raised in [place]. 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 * Medications: T akingFinasteride 5 MG Tablet [...] 1.0 - mg/dL?Bilirubin Direct0.30.0-0.5 - mg/dL?Aspartate Amino Shhfjipnxuq805-78 - U/L?Alanine Parqxfhffsxghnux310-71 - U/L?Total Protein7.46.5-8.0 - g/dL?Albumin Level4.33.5-5.0 - g/dL?Alkaline Ttqwhcxpgyq5070-189 - U/L ???Lab:Blood Culture (Second) (Order Date [...] UANegativeNegative - mg/dL?Urine BloodSmall (1+)ANegative - ?Specific [place] - Urine1.0201.005-1.025 -?Urine ProteinNegative Neg-Trace - mg/dL?Urine KetonesTraceNegative - mg/dL?Nitrite Urine NegativeNegative -?Leukocyte Esterase UrineModerate (2+)ANegative - ?RBC Pjbqa3-38G3-7 - /HPF?WBC Hmwpa61-83S6-5 - /HPF ?Squamous Epithelial Cell Urine0-20-2 - [...] was taken to the emergency room at [facility] across the street from my office [...] otes :He will continue to see the potato sorter regularly. The 6 mm pulmonary nodule will [...] true * Provider: Roddy Oreilly MD Date: 05/21/2025 Generated for Hayden wiley/Shawn/Deshawnitting on: 05/23/2025 11:16 AM EDT History and Physical Notes * [...]
--- NOTE | 2025-05-23 09:56 | A.OFFVIS_ITS ---
Intake Visit Reasons: Voiding Trial Intake Note: New patient presents today for initial visit for a voiding trial Urology Medication:Finasteride,Potassium,Tamsulosin Blood Thinner:None Antibiotic Allergies:None PVR: Allergies No Known Allergies Allergy (Verified 05/23/25 09:57) Medication List - Last Reconciled 05/23/25 by Sachin Joyce MD acetaminophen 650 mg PO Q6H PRN albuterol sulfate 90 mcg/actuation (Ventolin HFA) 2 puffs inhalation QID PRN budesonide 0.5 mg (2 mL) inhalation BID 30 days finasteride 5 mg PO DAILY 90 days finasteride (Proscar) 5 mg PO DAILY ipratropium-albuterol 0.5 mg-3 mg(2.5 mg base)/3 mL 3 mL inhalation BID 30 days magnesium oxide 400 mg PO BIDPC montelukast (Singulair) 10 mg PO BEDTIME 30 days nebulizers As directed omeprazole 20 mg PO DAILY@0630 potassium, sodium phosphates 280-160-250 mg (Phos-NaK) 1 packet PO QID tamsulosin 0.4 mg PO BEDTIME 90 days HPI Comments Details: 05/23/25-- Cystoscopy findings: prostatic urethra trilobar enlargement, bulbous urethra WNL, no suspicious bladder lesions visualized History of Present Illness The patient is a 74-year-old male presenting with urinary retention and prostate issues. In February, the patient was hospitalized for urinary retention, leading to the placement of a Mojica catheter. He experienced multiple catheter insertions and was in a nursing facility for about two and a half months. Medication adherence was poor due to insufficient caregiver support. Attempts to remove the catheter were unsuccessful, as the patient was unable to urinate independently, resulting in prolonged catheter use. He is currently not on any prostate medications. Cystoscopic findings included bladder thickening and an enlarged prostate, contributing to the urinary retention. Plan 1. Urinary Retention - failed voiding trial 16 Honduran catheter placed 2. Enlarged Prostate - Examination revealed an enlarged prostate contributing to urinary retention. - Consideration for prostate management and medication adherence discussed, - schedule GreenLight with suprapubic tube, resume Proscar 5 mg daily and tamsulosin. [facility] Medical History Elevated PSA measurement Pulmonary nodule Personal history of nicotine dependence Dyspnea COPD (chronic obstructive pulmonary disease) Surgical History Hx of appendectomy Social History Household Members: None Housing: House Patient Tobacco Use Status: Former Tobacco user Tobacco use type: Cigarette and Cigar Years Smoked: Since 12 years old Second Hand Smoke Exposure: No service: No Review of Systems Const All systems reviewed & are unremarkable except as noted in HPI and below Reports no additional complaints Eyes Reports no additional complaints ENT Reports no additional complaints Card Reports no additional complaints Resp Reports no additional complaints GI Reports no additional complaints Reports as per HPI Musc Reports no additional complaints Skin/Breast Reports system reviewed and no additional complaints, except as documented Neuro Reports no additional complaints Psych Reports no additional complaints Endo Reports no additional complaints Anand/Lymph Reports no additional complaints Aller/Immun Reports no additional complaints Office Procedures Bladder/Catheter Procedure Details: Patient unable to void. Per Dr. Gonzalez insert 16Fr coude catheter with flip valve and night bag and patient o return in 4 weeks for catheter change. Plan for Greenlight procedure in the future. New 16Fr coude catheter with 10mls and flip valve inserted. Educated patient on using the valve and emptying bladder every 3-4 hours. Patient able to demonstrate proper technique. Educated patient to attach night bag only at night time for drainage. Provided patient with new night bag. Wrote down instructions for patient on emptying the bladder and when to use the night bag. Patient did have some swelling at the tip of penis. Dr. Gonzalez aware. Patient denies any pain. Advised him to monitor and if it worsens to let us know. Patient to scheduled 4 week cath change with nursing. [id number] Temporary Bladder Catheter Procedure code (CPT) selection complete Cystoscopy Consent Discussed risk and benefit or proposed procedure with the patient. Information consent for procedure given to the patient. Discussed technical aspects, risks, benefits and alternatives in full. Addressed all of the patient's questions and concerns regarding the procedure. The patient demonstrated knowledge and understanding. They wish to proceed with this procedure. Preparation The patient was prepped in the usual manner. A pointing machine operator was present and in the room. Genitalia was prepped with betadine solution in a sterile manner. Lidocaine Jelly 2% was placed into the urethra and 16Fr flexible Olympus cystoscope was inserted into the meatus after adequate lubrication. Procedure Time out per protocol performed. The flexible cystoscope is passed transurethrally: The bladder was inspected in its entirety with utilization retroflexion displaying: Tumor(s): no suspicious bladder lesions visualized Trabeculation: Moderate with cellule changes, and diverticuli Mucosal Erthema: Mild Orifices: normal shape and position Urethra: normal Cystoscopy findings: prostatic urethra trilobar enlargement, bulbous urethraWNL, no suspicious bladder lesions visualized [id number] DISPOSABLE SCOPE URO-G FLEXIBLE SCOPE Procedure code (CPT) selection complete Office Meds lidocaine HCl 2 % mucosal jelly in applicator Performing Provider: Sachin Joyce MD Performing Location: [facility] Administered by: Angélica Ugalde RN on 05/23/25 10:44 Dose Route Admin Location Dispensed Lot Number Expiration Date NDC Glass Lined Tank Repairer 10 mL intra-urethral 20 mL ciprofloxacin HCl 500 mg tablet Performing Provider: Sachin Joyce MD Performing Location: [facility] Administered by: Angélica Ugalde RN on 05/23/25 10:44 Dose Route Admin Location Dispensed Lot Number Expiration Date NDC Glass Lined Tank Repairer 500 mg PO 1 tab phenazopyridine 200 mg tablet Performing Provider: Sachin Joyce MD Performing Location: [facility] Administered by: Angélica Ugalde RN on 05/23/25 10:44 Dose Route Admin Location Dispensed Lot Number Expiration Date NDC Glass Lined Tank Repairer 200 mg PO 1 tab Results AMB Urinalysis, Automated UA Leukoctes 70 Morgan/uL Last Edit by Liz Felder on 05/23/25 15:22 UA Nitrite Negative Last Edit by Liz Felder on 05/23/25 15:22 UA Urobilinogen 3.5 mg/dL Last Edit by Liz Felder on 05/23/25 15:22 UA Protein 15 mg/dL Last Edit by Liz Felder on 05/23/25 15:22 UA pH 6.0 Last Edit by Liz Felder on 05/23/25 15:22 UA Blood 200 Jose/uL Last Edit by Liz Felder on 05/23/25 15:22 UA Specific [place] 1.015 Last Edit by Liz Felder on 05/23/25 15:22 UA Ketone Negative Last Edit by Liz Felder on 05/23/25 15:22 UA Bilirubin 0 mg/dL Last Edit by Liz Felder on 05/23/25 15:22 UA Glucose 0 mg/dL Last Edit by Liz Felder on 05/23/25 15:22 Results Reviewed Results Reviewed: Laboratory Last Values Urine pH (Auto) 6.0 05/23/25 14:32 Specific [place] (Auto) 1.015 05/23/25 14:32 Urine Protein (Auto) 15 mg/dL 05/23/25 14:32 Glucose (UA)(Auto) 0 mg/dL 05/23/25 14:32 Urine Ketones (Auto) Negative 05/23/25 14:32 Urine Blood (Auto) 200 Jose/uL 05/23/25 14:32 Urine Nitrite (Auto) Negative 05/23/25 14:32 Urine Bilirubin (Auto) 0 mg/dL 05/23/25 14:32 Urine Urobilinogen (Auto) 3.5 mg/dL 05/23/25 14:32 Leukocyte Esterase (Auto) 70 Morgan/uL 05/23/25 14:32 Assessment & Plan Assessment & Plan (1) BPH loc w urin obs/LUTS: Code(s): N40.1 - Benign prostatic hyperplasia with lower urinary tract symptoms Category: Medical Plan Plan 1. Urinary Retention - failed voiding trial 16 Honduran catheter placed 2. Enlarged Prostate - Examination revealed an enlarged prostate contributing to urinary retention. - Consideration for prostate management and medication adherence discussed, - schedule GreenLight with suprapubic tube, resume Proscar 5 mg daily and tamsulosin. Needs pulmonary clearance Orders: Orders AMB Cystoscopy Today N39.0 - Urinary tract infection, site not specified, R33.8 - Other retention of urine AMB Bladder/Catheter Procedure Today R33.8 - Other retention of urine AMB Urinalysis Automated Today N39.0 - Urinary tract infection, site not specified, N40.1 - Benign prostatic hyperplasia with lower urinary tract symptoms Urine Culture Today N39.0 - Urinary tract infection, site not specified, N40.1 - Benign prostatic hyperplasia with lower urinary tract symptoms Medications: New finasteride (Proscar) 5 mg PO DAILY 90 tabs 3RF N40.1 - Benign prostatic hyperplasia with lower urinary tract symptoms Refilled tamsulosin 0.4 mg PO BEDTIME 90 caps 3RF Help with urinary flow 90 days Patient Instructions: The patient had an opportunity to ask questions regarding treatment plan. The patient expressed understanding and agreement with the above treatment plan. The patient is aware they should contact our office by phone for worsening of their current condition or the appearance of new symptoms. Compliance is encouraged with any medications and followup testing that is ordered. It is a privilege to be allowed the opportunity to participate in the urologic care of your patient. If you have any questions or concerns regarding treatment for the above conditions please do not hesitate to contact me. The office telephone contact is [phone]. This note is constructed in part using voice recognition software. While every effort has been made to ensure accuracy microsoft net developer errors may have been included. Yours sincerely, Sachin Joyce MD Scribe Plan - Not visible on output: Patient was informed and verbally consented to the use of an ambient scribe for clinic note documentation during this visit. Coding Level of Care Code Est Pt Level 4 (23307) Complex EM visit Add On G2211 Diagnoses BPH loc w urin obs/LUTS N40.1 CPT Codes Bladder/Catheter Procedure - CPT: 06648-Iwvtop Temporary Bladder Catheter ([id number]) Cystoscopy - CPT: 13756-Haqeofvkzz ([id number])
--- OUTSIDE RECORDS SUMMARY | 2025-05-23 11:17 | XMS_ITS | Encounter Summary ---
Author Organization [facility] Address [address] [place] [address] Care Team Providers Care Nutritionalist Name Role Phone Tyler Castillo MD Primary Care Provider [phone] Encounter Details Date Type Department Care Team (Late st Contact Info) Description 04/07/2025 Lab Requisition [facility] - Main Lab [address] [facility] [place] [address] Scott Starr MD [address] [place], [place] [phone] Painful micturition, unspecified; Frequency of micturition; Hematuria, unspecified Social History Tobacco Use Types Packs/Day Years Used Date Smoking Tobacco: Former Cigarettes Q uit: 02/03/2016 Smokeless Tobacco: Never Alcohol Use Standard Drinks/Week Comments No 0 (1 standard drink = 0.6 oz pur e alcohol) Sex and Gender Information Value Date Recorded Sex Assigned at Not on file Legal Sex Male 4:07 PM EST Gender Identity Not on file Sexual Orientation Not on file documented as of this encounter Plan of Treatment Not on file documented as of this encounter Procedures Procedure Name Priority Date/Time Associated Diagnosis Comments URINALYSIS WITH REFLEX MICROSCOPIC AND CULTURE Routine 04/07/2025 12:00 AM EDT Painful micturition, unspecified Frequency of micturition Hematuria, unspecified MONTALVO URINE CULTURE TUBE Routine 04/07/2025 12:00 AM EDT Painful micturition, unspecified Frequency of micturition Hematuria, unspecified URINALYSIS WITH REFLEX MICROSCOPIC AND CULTURE Routine 04/07/2025 12:00 AM EDT Painful micturition, unspecified Frequency of micturition Hematuria, unspecified CULTURE URINE Routine 04/07/2025 12:00 AM EDT Painful micturition, unspecified Frequency of micturition Hematuria, unspecified documented in this encounter Results * (ABNORMAL) Culture urine (04/07/2025 12:00 AM EDT) Culture, Urine >=100,000 CFU/mL Pseudomonas aeruginosa(A) MIRIAM 04/10/2025 7:34 AM EDT [facility] Comment: This is an edited result. Previous organism was Gram negative bacilli on 04/08/2025 at 0830 EDT. Culture, Urine 10,000-49,000 CFU/mL Citrobacter freundii(A) MIRIAM 04/10/2025 7:34 AM EDT [facility] Comment: The organism value for this result has been updated. These results have been appended to the previously preliminary verified report. This is an edited result. Previous organism was Gram negative bacilli on 04/09/2025 at 0938 EDT. Culture, Urine 10,000-49,000 CFU/mL Enterococcus faecalis(A) MIRIAM 04/10/2025 7:34 AM EDT [facility] Comment: The organism value for this result has been updated. These results have been appended to the previously preliminary verified report. Edited result: Previously reported as Enterococcus species on 04/09/2025 at 1014 EDT. Urine Urine specimen obtained by clean catch procedure / Unknown 04/07/2025 04/07/2025 10:07 AM EDT Narrative Organism Antibiotic Method Susceptibility Pseudomonas aeruginosa Piperacillin/Tazobactam MIRIAM 8 ug/ml: Susceptible Pseudomonas aeruginosa Ceftazidime MIRIAM 2 ug/ml: Susceptible Pseudomonas aeruginosa Cefepime MIRIAM 2 ug/ml: Susceptible Pseudomonas aeruginosa Meropenem MIRIAM 0.5 ug/ml: Susceptible Pseudomonas aeruginosa Amikacin MIRIAM 4 ug/ml: Susceptible Pseudomonas aeruginosa Ciprofloxacin MIRIAM 0.5 ug/ml: Susceptible Pseudomonas aeruginosa Levofloxacin MIRIAM 1 ug/ml: Susceptible Citrobacter freundii Amoxicillin/Clavulanate MIRIAM >=32 ug/ml: Resistant Citrobacter freundii Cefoxitin MIRIAM >=64 ug/ml: Resistant Citrobacter freundii Ceftazidime MIRIAM >=32 ug/ml: Resistant Citrobacter freundii Ceftriaxone MIRIAM >=64 ug/ml: Resistant Citrobacter freundii Cefepime MIRIAM 0.5 ug/ml: Susceptible Citrobacter freundii Meropenem MIRIAM <=0.25 ug/ml: Susceptible Citrobacter freundii Amikacin MIRIAM <=1 ug/ml: Susceptible Citrobacter freundii Gentamicin MIRIAM <=1 ug/ml: Susceptible Citrobacter freundii Ciprofloxacin MIRIAM <=0.06 ug/ml: Susceptible Citrobacter freundii Levofloxacin MIRIAM <=0.12 ug/ml: Susceptible Citrobacter freundii Nitrofurantoin MIRIAM 32 ug/ml: Susceptible Citrobacter freundii Trimethoprim/Sulfamethoxazole MIRIAM <=20 ug/ml: Susceptible Enterococcus faecalis Benzylpenicillin MIRIAM 2 ug/ml: Susceptible Enterococcus faecalis Ampicillin MIRIAM <=2 ug/ml: Susceptible Enterococcus faecalis Ciprofloxacin MIRIAM <=0.5 ug/ml: Susceptible Enterococcus faecalis Levofloxacin MIRIAM 1 ug/ml: Susceptible Enterococcus faecalis Linezolid MIRIAM 2 ug/ml: Susceptible Enterococcus faecalis Vancomycin MIRIAM 1 ug/ml: Susceptible Enterococcus faecalis Tetracycline MIRIAM >=16 ug/ml: Resistant Enterococcus faecalis Nitrofurantoin MIRIAM <=16 ug/ml: Susceptible us Scott Starr MD LAB MICROBIOLOGY - GENERAL ORDERABLES Final Result [facility] [address] [place] [address], * (ABNORMAL) Urinalysis with reflex microscopic and culture (04/07/2025 12:00 AM EDT) Specific [place] Urine 1.015 1.003 - 1.030 LAB URINALYSIS - AUTOMATED METHOD 04/07/2025 10:07 AM EDT [facility] pH, Urine 6.0 5.0 - 8.0 pH LAB URINALYSIS - AUTOMATED METHOD 04/07/2025 10:07 AM EDT [facility] Leukocytes, Urine Large(A) Negative LAB URINALYSIS - AUTOMATED METHOD 04/07/2025 10:07 AM EDT [facility] Nitrite, Urine Negative Negative LAB URINALYSIS - AUTOMATED METHOD 04/07/2025 10:07 AM [facility] Protein, Urine 300(A) <=Trace mg/dL LAB URINALYSIS - AUTOMATED METHOD 04/07/2025 10:07 AM [facility] Glucose, Urine Negative Negative mg/dL LAB URINALYSIS - AUTOMATED METHOD 04/07/2025 10:07 AM [facility] Ketones, Urine Negative Negative mg/dL LAB URINALYSIS - AUTOMATED METHOD 04/07/2025 10:07 AM [facility] Urobilinogen , Urine 0.2 0.2 - 1.0 mg/dL LAB URINALYSIS - AUTOMATED METHOD 04/07/2025 10:07 AM [facility] Bilirubin, Urine Negative Negative LAB URINALYSIS - AUTOMATED METHOD 04/07/2025 10:07 AM [facility] Blood, Urine Large(A) Negative LAB URINALYSIS - AUTOMATED METHOD 04/07/2025 10:07 AM [facility] RBC, Urine 508.8(H) 0 - 4 /HPF LAB URINALYSIS - AUTOMATED METHOD 04/07/2025 10:07 AM [facility] WBC, Urine >4,000(H) 0 - 4 /HPF LAB URINALYSIS - AUTOMATED METHOD 04/07/2025 10:07 AM [facility] Squamous Epithelial, Urine 20 0 - 60 /LPF LAB URINALYSIS - AUTOMATED METHOD 04/07/2025 10:07 AM [facility] Bacteria, Urine Many(A) Negative /HPF LAB URINALYSIS - AUTOMATED METHOD 04/07/2025 10:07 AM [facility] Hyaline Casts, Urine 0.2 0 - 3 /LPF LAB URINALYSIS - AUTOMATED METHOD 04/07/2025 10:07 AM [facility] Urine Urine specimen obtained by clean catch procedure / Unknown 04/07/2025 04/07/2025 9:02 AM EDT us Scott Starr MD LAB URINE ORDERABLES Final Result Performing Organization Address [facility]/ZIP Co de Phone Number [facility] [address] [place] [address], [place] [phone] * [place]vo urine culture tube (04/07/2025 12:00 AM EDT) Extra Tube Hold for add-ons. 04/07/2025 11:01 AM EDT [facility] Comment:Auto resulted. Urine Urine specimen obtained by clean catch procedure / Unknown 04/07/2025 04/07/2025 9:02 AM EDT us Scott Starr MD LAB URINE ORDERABLES Final Result Performing Organization Address [facility] de Phone Number [facility] [address] [place] [address], [place] [phone] documented in this encounter Visit Diagnoses Diagnosis Painful micturition, unspecified Frequency of micturition Urinary frequency Hematuria, unspecified documented in this encounter Care Teams Nutritionalist Relationship Specialty Start Date End Date Tyler Castillo MD [address] [place] [address] PCP - General Internal Medicine 10/20/15 documented as of this encounter
--- OUTSIDE RECORDS SUMMARY | 2025-05-23 11:17 | XMS_ITS | Encounter Summary ---
Author Organization [facility] Address [address] [place] [address] Care Team Providers Care Parimutuel Clerk Name Role Phone Tyler Castillo MD Primary Care Provider [phone] Encounter Details Date Type Department Care Team (Late st Contact Info) Description 04/23/2025 Lab Requisition [facility] - Main Lab [address] [facility] [place] [address] Scott Starr MD [address] [place], [place] [phone] Anemia, unspecified; Acute kidney failure, unspecified (CMS/HCC V24) Social History Tobacco Use Types Packs/Day Years [...] Procedure Name Priority Date/Time Associated Diagnosis Comments COMPLETE BLOOD COUNT Routine 04/23/2025 7:12 AM EDT Anemia, unspecified Acute kidney failure, unspecified (CMS/HCC V24) BASIC METABOLIC PANEL Routine 04/23/2025 7:12 AM EDT Anemia, unspecified Acute kidney failure, unspecified (CMS/HCC V24) documented in this encounter Results * Basic metabolic panel (04/23/2025 7:12 AM EDT) Sodium 139 133 - 145 mmol/L LAB CHEMISTRY METHOD 04/23/2025 10:03 AM [facility] Potassium 4.4 3.5 - 5.5 mmol/L LAB CHEMISTRY METHOD 04/23/2025 10:03 AM [facility] Chloride 107 96 - 110 mmol/L LAB CHEMISTRY METHOD 04/23/2025 10:03 AM [facility] CO2 28 21 - 32 mmol/L LAB CHEMISTRY METHOD 04/23/2025 10:03 AM [facility] Anion Gap 4 3 - 11 LAB CHEMISTRY METHOD 04/23/2025 10:03 AM [facility] Glucose 74 70 - 100 mg/dL LAB CHEMISTRY METHOD 04/23/2025 10:03 AM [facility] BUN 18 5 - 25 mg/dL LAB CHEMISTRY METHOD 04/23/2025 10:03 AM [facility] Creatinine 1.09 0.70 - 1.30 mg/dL LAB CHEMISTRY METHOD 04/23/2025 10:03 AM [facility] eGFR 70 >=60 mL/min/1. 73m2 LAB CHEMISTRY METHOD 04/23/2025 10:03 AM [facility] Comment:Calculation based on the Chronic Kidney Disease Epidemiology Collaboration (CKD-EPI) equation refit without adjustment for race. BUN/Creatinine Ratio 16.5 LAB CHEMISTRY METHOD 04/23/2025 10:03 AM [facility] Calcium 9.1 8.5 - 10.5 mg/dL LAB CHEMISTRY METHOD 04/23/2025 10:03 AM [facility] Blood Venous blood specimen / Unknown Venipuncture / Unknown 04/23/2025 7:12 AM EDT 04/23/2025 9:11 AM EDT us Scott Starr MD LAB BLOOD ORDERABLES Final Result [facility] [address] [place] [address], [place] [phone] * (ABNORMAL) Complete blood count (04/23/2025 7:12 AM EDT) [facility] WBC 8.9 4.8 - 10.8 K/mcL LAB HEMETOLOGY [facility] RBC 4.10(L) 4.50 - 5.50 M/mcL LAB HEMETOLOGY METHOD 04/23/2025 9:[address] [facility] Hemoglobin 12.0(L) 13.5 - 17.5 g/dL LAB HEMETOLOGY METHOD 04/23/2025 9:[address] [facility] Hematocrit 37.6(L) 42.0 - 54.0 % LAB HEMETOLOGY METHOD 04/23/2025 9:48 AM [facility] MCV 91.0 79.0 - 98.0 FL LAB HEMETOLOGY METHOD 04/23[facility]2025 9[facility] MCH 29.1 27.0 - 32.0 pcg LAB HEMETOLOGY METHOD 04/23/2025 9:48 AM [facility] MCHC 31.9(L) 32.0 - 37.0 g/dL LAB HEMETOLOGY METHOD 04/23/2025 9:48 AM [facility] RDW 14.4 11.0 - 15.0 % LAB HEMETOLOGY METHOD 04/23/2025 9[facility] Platelets 437(H) 130 - 400 K/mcL LAB HEMETOLOGY METHOD 04/23/2025 9:[address] [facility] MPV 8.8 7.0 - 11.0 FL LAB HEMETOLOGY METHOD 04/23/2025 9[facility] NRBC 0.0 <1.0 % LAB HEMETOLOGY METHOD 04/23/2025 9:[address] [facility] NRBC Absolute 0.00 <0.10 K/mcL LAB HEMETOLOGY METHOD 04/23/2025 9:[address] [facility] Blood Venous blood specimen / Unknown Venipuncture / Unknown 04/23/2025 7:12 AM EDT 04/23/2025 9:11 AM EDT us Scott Starr MD LAB BLOOD ORDERABLES Final Result [facility] [address] [place] [address], documented in this encounter Visit Diagnoses Diagnosis Anemia, unspecified Acute kidney failure, unspecified (CMS/HCC V24) Acute kidney failure, unspecified documented in this encounter Care Teams Parimutuel Clerk Relationship Specialty Start Date End Date Tyler Castillo MD [address] [place] [address] PCP - General Internal Medicine 10/20/15 documented as of this encounter
--- OUTSIDE RECORDS SUMMARY | 2025-05-23 11:17 | XMS_ITS | Encounter Summary ---
Author Organization [facility] Address [address] [place] [address] Care Team Providers Care Shirt Hemmer Name Role Phone Tyler Castillo MD Primary Care Provider [phone] Encounter Details Date Type Department Care Team (Late st Contact Info) Description 04/04/2025 Lab Requisition [facility] - Main Lab [address] [facility] [place] [address] Scott Starr MD [address] [place] [phone] Diarrhea, unspecified Social History Tobacco Use Types Packs/Day [...] on file documented as of this encounter Visit Diagnoses Diagnosis Diarrhea, unspecified documented in this encounter Additional Health Concerns Infection Onset Date Last Indicated Resolved Time C. difficile Rule-Out 04/04/2025 04/04/20252024 12:46 PM EDT documented as of this encounter Care Teams Shirt Hemmer Relationship Specialty Start Date End Date Tyler Castillo MD [address] [place] [id number] PCP - General Internal Medicine 10/20/15 documented as of this encounter
--- OUTSIDE RECORDS SUMMARY | 2025-05-23 11:17 | XMS_ITS | Patient Health Record ---
Author Organization Thaddeus Oreilly III, MD Address [address] [place] [address] [place] [address] Care Team Providers Care [employer] Process Worker Name Role Phone Thaddeus Oreilly Primary Care Provider Allergies Allergen (clinical drug ingredient) Drug/Non Drug Allergy documented on EMR Reaction Allergy Type Onset Date Status No Known Drug Allergy Unknown Drug Allergy Active Results Component Value Reference Range Notes Complete Blood Count Auto Di ff Reviewed date:08/13/2024 04:55:29 AM Interpretation: Performing Lab:[facility], [address] [place] [phone] Notes/Report: White Blood Count 9.6 4.8-10.8 X10*3/uL [...] 0.0 0.0-0.2 /100WBC Neutrophils Absolute Auto 6.9 2.0-8. 3 x10*3/uL Imm Gran Abs Auto 0.03 0.00-0.03 X10*3/uL Lymphocytes Absolute Auto 1.5 1.2-4. 9 X10*3/uL Monocytes Absolute Auto 1.0 0.1-1.2 X10*3/uL Eosinophils Absolute Auto 0.1 0.0-0. 4 X10*3/uL Basophils Absolute Auto 0.1 0.0-0.2 X10*3/uL NRBC Abs Auto 0.000 0.0-0.012 X10*3/uL Comprehensive Met. Panel Reviewed date:08/13/2024 04:55:29 AM Interpretation: Performing Lab:[address] [address] Notes/Report: Sodium 139 135-145 mmol/L Potassium 5.0 [...] Antigen Reviewed date:08/13/2024 04:55:29 AM Interpretation: Performing Lab:[address] [address] Notes/Report: Prostate Specific Antigen 4.00 <0.05- 4.0 ng/mL PSA methodology: Whatley Alinity i Chemiluminescent Microparticle Immunoassay (CMIA) Complete Blood Count Auto Di ff Reviewed date:11/05/2024 03:32:23 PM Interpretation: Performing Lab:[facility], [address] [place] [phone] Notes/Report: White Blood Count 7.8 4.8-10.8 X10*3/uL [...] 0.0 0.0-0.2 /100WBC Neutrophils Absolute Auto 5.7 2.0-8. 3 x10*3/uL Imm Gran Abs Auto 0.02 0.00-0.03 X10*3/uL Lymphocytes Absolute Auto 1.1 1.2-4. 9 X10*3/uL Monocytes Absolute Auto 0.9 0.1-1.2 X10*3/uL Eosinophils Absolute Auto 0.1 0.0-0. 4 X10*3/uL Basophils Absolute Auto 0.1 0.0-0.2 X10*3/uL NRBC Abs Auto 0.000 0.0-0.012 X10*3/uL Comprehensive Independence. Panel Fa st Reviewed date:11/05/2024 03:32:23 PM Interpretation: Performing Lab:[facility], [address] [place] [address] Notes/Report: Sodium 139 135-145 mmol/L Potassium 4.4 [...] Panel Reviewed date:11/05/2024 03:32:23 PM Interpretation: Performing Lab:[facility], [address] [place] [phone] Notes/Report: Triglycerides 197 <150 mg/dL Desirable Triglyceride: [...] Antigen Reviewed date:11/05/2024 03:32:23 PM Interpretation: Performing Lab:[facility], [address] [place] [address] Notes/Report: Prostate Specific Antigen 3.92 <0.05- 4.0 ng/mL PSA methodology: Whatley Alinity i Chemiluminescent Microparticle Immunoassay (CMIA) Complete Blood Count Auto Di ff Reviewed date:02/24/2025 01:37:52 PM Interpretation: Performing Lab:[facility], [address] [place] [phone] Notes/Report: White Blood Count 15.3 4.8-10.8 X10*3/uL Red Blood Count 4.91 4.60-5.80 X10*6/uL Hemoglobin 15.1 14.0-18.0 g/dl Hematocrit 43.8 42.0-52.0 % Mean Corpuscular Volume 89.2 80.0-98.0 fL Mean Corpuscular Hemoglobin 30.8 27.0-33.0 pg Mean Corpuscular HGB Conc 34.5 31.0-36.0 g/dl Red Cell Distribution Width 13.7 11.0-16.0 % Platelet Count 226 160-400 X10*3/uL Mean Platelet Volume 9.0 9.4-12.4 fL Neutrophils Percent Auto 84.7 45-73 % Imm Gran Pct Auto 0.5 0.0-0.4 % Lymphocytes Percent Auto 5.2 20-40 % Monocytes Percent Auto 8.8 2-11 % Eosinophils Percent Auto 0.3 0-4 % Basophils Percent Auto 0.5 0-2 % NRBC Pct Auto 0.0 0.0-0.2 /100WBC Neutrophils Absolute Auto 13.0 2.0-8. 3 x10*3/uL Imm Gran Abs Auto 0.07 0.00-0.03 X10*3/uL Lymphocytes Absolute Auto 0.8 1.2-4. 9 X10*3/uL Monocytes Absolute Auto 1.4 0.1-1.2 X10*3/uL Eosinophils Absolute Auto 0.0 0.0-0. 4 X10*3/uL Basophils Absolute Auto 0.1 0.0-0.2 X10*3/uL NRBC Abs Auto 0.000 0.0-0.012 X10*3/uL Liver Panel Reviewed date:02/24/2025 01:37:52 PM Interpretation: Performing Lab:[facility], [address] [place] [phone] Notes/Report: Bilirubin Total 0.6 0.0-1.0 mg/dL Bilirubin Direct 0.3 0.0-0.5 mg/dL Aspartate Amino Transferase 22 5-37 U/L Alanine Aminotransferase 21 0-40 U/L Total Protein 7.4 6.5-8.0 g/dL Albumin Level 4.3 3.5-5.0 g/dL Alkaline Phosphatase 91 39-117 U/L Basic Metabolic Panel Reviewed date:02/24/2025 01:37:52 PM Interpretation: Performing Lab:[facility], [address] [place] [phone] Notes/Report: Sodium 142 135-145 mmol/L Potassium 4.5 3.3-5.1 mmol/L Chloride 109 96-108 mmol/L Carbon Dioxide 20 22-29 mmol/L Anion Gap 18 12-20 Blood Urea Nitrogen 73 9-16 mg/dL Creatinine 2.89 0.5-1.4 mg/dL Creatinine Clr Calc Pharmacy 25.2 eGFR (calculated from the MDRD study equation) and eCrCl (calculated from the Cockcroft-Gault equation) are based on different parameters and may not yield comparable results. If eCrCl result is absurd, please check patient's height/weight. Estimated Glomerular Filt Rate 21 Chronic Kidney Disease: Estimated GFR < 60 mL/min/1.73m2 Severe Kidney Disease: Estimated GFR < 15 mL/min/1.73m2 Glucose Random 91 60-115 mg/dL Calcium 9.9 8.4-10.2 mg/dL Lactic Acid Reviewed date:02/24/2025 01:37:52 PM Interpretation: Performing Lab:[facility], [address] [place] [phone] Notes/Report: Lactic Acid 1.0 0.5-2.0 mmol/L Magnesium Reviewed date:02/24/2025 01:37:52 PM Interpretation: Performing Lab:[facility], [address] [place] [phone] Notes/Report: Magnesium 2.3 1.6-2.6 mg/dL Urine Culture Reviewed date:02/24/2025 01:37:52 PM Interpretation: Performing Lab:[address] [address] Notes/Report: Urine Culture No growth. Blood Culture (First) Reviewed date:02/28/2025 04:32:50 AM Interpretation: Performing Lab:[address] [address] Notes/Report: Blood Culture (First) No growth after 5 days. Blood Culture (Second) Reviewed date:02/28/2025 04:32:50 AM Interpretation: Performing Lab:[address] [address] Notes/Report: Blood Culture (Second) No growth after 5 days. UA ClnCatch+Micro w/rflx Cul t Reviewed date:02/24/2025 01:37:52 PM Interpretation: Performing Lab:[address] [address] Notes/Report: [id number] Urine, Catheterized Color Urine Yellow Appearance Urine Clear PH 5.0 5.0-9.0 Glucose Urine UA Negative Negative mg/dL Urine Blood Small (1+) Negative Specific Elk - Urine 1.020 1.005-1.025 Urine Protein Negative Neg-Trace mg/dL Urine Ketones Trace Negative mg/dL Nitrite Urine Negative Negative Leukocyte Esterase Urine Moderate (2+) Negative RBC Urine 6-10 0-2 /HPF WBC Urine 11-20 0-5 /HPF Squamous Epithelial Cell Urine 0-2 0-2 /HPF Bacteria Urine None Seen None Seen Hyaline Casts Urine 0-2 0-2 /LPF CT abdomen pelvis wo con Reviewed date:02/24/2025 01:37:52 PM Interpretation: Performing Lab: Notes/Report: [address] [address] [address] Scan Report Signed Patient: Curt Woods MR#: [id number] : 1950 Acct:[id number] Age/Sex: 74 / M ADM Date: 02/22/25 Loc: [facility] 468-[address]: Anupam Tate MD Ordering Physician: Francisco Blanton MD Date of Service: 02/22/25 Procedure(s): CT abdomen pelvis wo IV con Accession Number(s): [id number] cc: Thaddeus Oreilly MD; Francisco Blanton MD Report Number: [id number]: Total DLP = 711.00 mGy-cm CLINICAL HISTORY: Urinary retention, elevated BUN Cr --- Additional Notes or Special Instructions: R O ureteral obstruction, enlarged prostate, hydronephrosis CT abdomen and pelvis without contrast Comparison: None provided Findings: Atelectasis. Thickening of the bilateral adrenal glands. 1.9 cm right adrenal gland nodule measuring 11 Hounsfield unit. Although this may reflect an adrenal adenoma, this may be further evaluated with biochemical assay and adrenal protocol imaging. Bilateral perinephric stranding, nonspecific. Mild bilateral hydroureteronephrosis with subcentimeter renal calculi, left more than right measuring no more than 5 mm. Fluid-filled colon with diffuse mural thickening, colitis not excluded. No bowel obstruction. Fat containing inguinal hernias. Scattered colonic diverticulosis without diverticulitis. Mojica catheter in the bladder, decompressed with scattered air anteriorly. Osteopenia with diffuse multilevel spondylosis. Diffuse atheromatous plaque disease throughout the aorta and branch vessels, without aneurysmal dilatation. IMPRESSION: 1. Mild bilateral hydroureteronephrosis with subcentimeter renal calculi, left more than right measuring no more than 5 mm. 2. Possible mildly diffuse colitis. 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: [place] [address] CT Scan Report Signed Patient: Mikhail Woods MR#: [id number] : 1950 Acct:[id number] Age/Sex: 74 / M ADM Date: 02/22/25 Loc: [facility] 468-[address]: Rich Tate MD Ordering Physician: Francisco Blanton MD Date of Service: 02/22/25 Procedure(s): CT abd omen pelvis wo IV con Accession Number(s): [id number] cc: Thaddeus Oreilly MD; Francisco Blanton MD Report Number: [id number]: Total DLP = 711.00 mGy-cm CLINICAL HISTORY: Ur inary retention, elevated BUN Cr --- Additional Notes or Special Instructions: R O ureteral obstructi on, enlarged prostate, hydronephrosis CT abdomen and pelvi s without contrast Comparison: None provided Findings: Atelectasis. Thickening of the bi lateral adrenal glands. 1.9 cm right adrenal gland nodule measuring 11 Hounsfield unit. Although this may reflect an adrenal adenoma, this may be further evaluated with biochemical assay and adrenal protocol imaging. Bilateral perinephri c stranding, nonspecific. Mild bilateral hydroureteronephrosis with subcentimeter renal calculi, left more than right measuring no more than 5 mm. Fluid-filled colon w ith diffuse mural thickening, colitis not excluded. No bowel obstruction. Fat containing ingui nal hernias. Scattered colonic diverticulosis without diverticulitis. Mojica catheter in th e bladder, decompressed with scattered air anteriorly. Osteopenia with diff use multilevel spondylosis. Diffuse atheromatous plaque disease throughout the aorta and branch vessels, without ane urysmal dilatation. IMPRESSION: 1. Mild bilateral hydroureteronephrosis with subcentimeter renal calculi, left more than right measuring no more than 5 mm. 2. Possible mildly d iffuse colitis. This document has be en electronically signed by: Cedric Taylor MD on 02/22/2025 22:32:33 Dictated By: Cedric Valdivia MD Signed By: <Electron ically signed by Cedric Taylor MD in [place]> 02/22/252233 DD/ 31 TD/TT: 02/22/252231 Rail Car Welder: Complete Blood Count Auto Di ff Reviewed date:02/24/2025 01:37:52 PM Interpretation: Performing Lab:[facility], [address] [place] [phone] Notes/Report: White Blood Count 11.8 4.8-10.8 X10*3/uL Red Blood Count 4.29 4.60-5.80 X10*6/uL Hemoglobin 13.1 14.0-18.0 g/dl Hematocrit 38.6 42.0-52.0 % Mean Corpuscular Volume 90.0 80.0-98.0 fL Mean Corpuscular Hemoglobin 30.5 27.0-33.0 pg Mean Corpuscular HGB Conc 33.9 31.0-36.0 g/dl Red Cell Distribution Width 13.7 11.0-16.0 % Platelet Count 203 160-400 X10*3/uL Mean Platelet Volume 9.4 9.4-12.4 fL Neutrophils Percent Auto 77.6 45-73 % Imm Gran Pct Auto 0.3 0.0-0.4 % Lymphocytes Percent Auto 8.0 20-40 % Monocytes Percent Auto 11.2 2-11 % Eosinophils Percent Auto 2.3 0-4 % Basophils Percent Auto 0.6 0-2 % NRBC Pct Auto 0.0 0.0-0.2 /100WBC Neutrophils Absolute Auto 9.1 2.0-8. 3 x10*3/uL Imm Gran Abs Auto 0.04 0.00-0.03 X10*3/uL Lymphocytes Absolute Auto 0.9 1.2-4. 9 X10*3/uL Monocytes Absolute Auto 1.3 0.1-1.2 X10*3/uL Eosinophils Absolute Auto 0.3 0.0-0. 4 X10*3/uL Basophils Absolute Auto 0.1 0.0-0.2 X10*3/uL NRBC Abs Auto 0.000 0.0-0.012 X10*3/uL Comprehensive Met. Panel Reviewed date:02/24/2025 01:37:52 PM Interpretation: Performing Lab:[facility], [address] [place] [phone] Notes/Report: Sodium 143 135-145 mmol/L Potassium 4.0 3.3-5.1 mmol/L Chloride 113 96-108 mmol/L Carbon Dioxide 23 22-29 mmol/L Anion Gap 11 12-20 Blood Urea Nitrogen 50 9-16 mg/dL Creatinine 1.46 0.5-1.4 mg/dL Creatinine Clr Calc Pharmacy 50.0 eGFR (calculated from the MDRD study equation) and eCrCl (calculated from the Cockcroft-Gault equation) are based on different parameters and may not yield comparable results. If eCrCl result is absurd, please check patient's height/weight. Estimated Glomerular Filt Rate 47 Chronic Kidney Disease: Estimated GFR < 60 mL/min/1.73m2 Severe Kidney Disease: Estimated GFR < 15 mL/min/1.73m2 Glucose Random 87 60-115 mg/dL Calcium 8.5 8.4-10.2 mg/dL Bilirubin Total 0.6 0.0-1.0 mg/dL Aspartate Amino Transferase 19 5-37 U/L Alanine Aminotransferase 18 0-40 U/L Total Protein 6.2 6.5-8.0 g/dL Albumin Level 3.5 3.5-5.0 g/dL Alkaline Phosphatase 70 39-117 U/L Basic Metabolic Panel Reviewed date:02/24/2025 01:37:52 PM Interpretation: Performing Lab:[address] [address] Notes/Report: Sodium 143 135-145 mmol/L Potassium 3.4 3.3-5.1 mmol/L Chloride 107 96-108 mmol/L Carbon Dioxide 25 22-29 mmol/L Anion Gap 14 12-20 Blood Urea Nitrogen 21 9-16 mg/dL Creatinine 1.00 0.5-1.4 mg/dL Creatinine Clr Calc Pharmacy 73.0 eGFR (calculated from the MDRD study equation) and eCrCl (calculated from the Cockcroft-Gault equation) are based on different parameters and may not yield comparable results. If eCrCl result is absurd, please check patient's height/weight. Estimated Glomerular Filt Rate > 60 Chronic Kidney Disease: Estimated GFR < 60 mL/min/1.73m2 Severe Kidney Disease: Estimated GFR < 15 mL/min/1.73m2 Glucose Random 137 60-115 mg/dL Calcium 7.7 8.4-10.2 mg/dL Phosphorus Reviewed date:02/24/2025 01:37:52 PM Interpretation: Performing Lab:[address] [address] Notes/Report: Phosphorus 2.2 2.7-4.5 mg/dL Magnesium Reviewed date:02/24/2025 01:37:52 PM Interpretation: Performing Lab:[address] [address] Notes/Report: Magnesium 1.2 1.6-2.6 mg/dL Critical [Magnesium] sent by a secure message and confirmed by (SHONA, 02/24/25 1154) Tech: ROSEMARY Basic Metabolic Panel Reviewed date:02/27/2025 05:39:52 AM Interpretation: Performing Lab:[address] [address] Notes/Report: Sodium 139 135-145 mmol/L Potassium 3.0 3.3-5.1 mmol/L Chloride 105 96-108 mmol/L Carbon Dioxide 23 22-29 mmol/L Anion Gap 14 12-20 Blood Urea Nitrogen 9 9-16 mg/dL Creatinine 1.03 0.5-1.4 mg/dL Creatinine Clr Calc Pharmacy 70.9 eGFR (calculated from the MDRD study equation) and eCrCl (calculated from the Cockcroft-Gault equation) are based on different parameters and may not yield comparable results. If eCrCl result is absurd, please check patient's height/weight. Estimated Glomerular Filt Rate > 60 Chronic Kidney Disease: Estimated GFR < 60 mL/min/1.73m2 Severe Kidney Disease: Estimated GFR < 15 mL/min/1.73m2 Glucose Random 151 60-115 mg/dL Calcium 7.8 8.4-10.2 mg/dL Phosphorus Reviewed date:02/27/2025 05:39:52 AM Interpretation: Performing Lab:[facility], [address] [place] [phone] Notes/Report: Phosphorus 1.4 2.7-4.5 mg/dL Magnesium Reviewed date:02/27/2025 05:39:52 AM Interpretation: Performing Lab:[facility], [address] [place] [phone] Notes/Report: Magnesium 1.4 1.6-2.6 mg/dL Critical mags sent by a secure message and confirmed by katelin Smart 02/25/25 0956 Tech: [email or web address] Basic Metabolic Panel Reviewed date:02/27/2025 05:39:52 AM Interpretation: Performing Lab:[address] [address] Notes/Report: Sodium 139 135-145 mmol/L Test was veri fied by repeat analysis. Potassium 4.1 3.3-5.1 mmol/L Test was veri fied by repeat analysis. Chloride 104 96-108 mmol/L Test was verif ied by repeat analysis. Carbon Dioxide 25 22-29 mmol/L Test was veri fied by repeat analysis. Anion Gap 14 12-20 Test was verifi ed by repeat analysis. Blood Urea Nitrogen 13 9-16 mg/dL Creatinine 1.06 0.5-1.4 mg/dL Creatinine Clr Calc Pharmacy 68.9 eGFR (calculated from the MDRD study equation) and eCrCl (calculated from the Cockcroft-Gault equation) are based on different parameters and may not yield comparable results. If eCrCl result is absurd, please check patient's height/weight. Estimated Glomerular Filt Rate > 60 Chronic Kidney Disease: Estimated GFR < 60 mL/min/1.73m2 Severe Kidney Disease: Estimated GFR < 15 mL/min/1.73m2 Glucose Random 122 60-115 mg/dL Calcium 7.9 8.4-10.2 mg/dL Phosphorus Reviewed date:02/27/2025 05:39:52 AM Interpretation: Performing Lab:[facility], [address] [place] [phone] Notes/Report: Phosphorus 2.4 2.7-4.5 mg/dL Magnesium Reviewed date:02/27/2025 05:39:52 AM Interpretation: Performing Lab:[facility], [address] [place] [phone] Notes/Report: Magnesium 1.7 1.6-2.6 mg/dL Basic Metabolic Panel Reviewed date:02/27/2025 05:39:52 AM Interpretation: Performing Lab:[facility], [address] [place] [phone] Notes/Report: Sodium 142 135-145 mmol/L Potassium 3.6 3.3-5.1 mmol/L Chloride 107 96-108 mmol/L Carbon Dioxide 26 22-29 mmol/L Anion Gap 13 12-20 Blood Urea Nitrogen 10 9-16 mg/dL Creatinine 0.86 0.5-1.4 mg/dL Creatinine Clr Calc Pharmacy 84.9 eGFR (calculated from the MDRD study equation) and eCrCl (calculated from the Cockcroft-Gault equation) are based on different parameters and may not yield comparable results. If eCrCl result is absurd, please check patient's height/weight. Estimated Glomerular Filt Rate > 60 Chronic Kidney Disease: Estimated GFR < 60 mL/min/1.73m2 Severe Kidney Disease: Estimated GFR < 15 mL/min/1.73m2 Glucose Random 145 60-115 mg/dL Calcium 8.1 8.4-10.2 mg/dL Phosphorus Reviewed date:02/27/2025 05:39:52 AM Interpretation: Performing Lab:[facility], [address] [place] [phone] Notes/Report: Phosphorus 2.0 2.7-4.5 mg/dL Magnesium Reviewed date:02/27/2025 05:39:52 AM Interpretation: Performing Lab:[facility], [address] [place] [phone] Notes/Report: Magnesium 1.4 1.6-2.6 mg/dL Critical [MAGS] sent by a secure message and confirmed by ( [place] [id number] @0631) Tech:TIFF Hold Lav - Possible Hematolo gy Reviewed date:02/27/2025 03:19:41 PM Interpretation: Performing Lab:[facility], [address] [place] [phone] Notes/Report: Hold Lav - Possible Hematology SEE NOTE Specimen will be held untested for 8 hours. Call Hematology if testing is desired. Basic Metabolic Panel Reviewed date:02/27/2025 03:19:41 PM Interpretation: Performing Lab:[facility], [address] [place] [phone] Notes/Report: Sodium 142 135-145 mmol/L Potassium 4.1 3.3-5.1 mmol/L Chloride 106 96-108 mmol/L Carbon Dioxide 27 22-29 mmol/L Anion Gap 13 12-20 Blood Urea Nitrogen 10 9-16 mg/dL Creatinine 0.83 0.5-1.4 mg/dL Creatinine Clr Calc Pharmacy 88.0 eGFR (calculated from the MDRD study equation) and eCrCl (calculated from the Cockcroft-Gault equation) are based on different parameters and may not yield comparable results. If eCrCl result is absurd, please check patient's height/weight. Estimated Glomerular Filt Rate > 60 Chronic Kidney Disease: Estimated GFR < 60 mL/min/1.73m2 Severe Kidney Disease: Estimated GFR < 15 mL/min/1.73m2 Glucose Random 105 60-115 mg/dL Calcium 8.5 8.4-10.2 mg/dL Phosphorus Reviewed date:02/27/2025 03:19:41 PM Interpretation: Performing Lab:[facility], [address] [place] [address] Notes/Report: Phosphorus 2.0 2.7-4.5 mg/dL Magnesium Reviewed date:02/27/2025 03:19:41 PM Interpretation: Performing Lab:[facility], [address] [place] [address] Notes/Report: Magnesium 1.9 1.6-2.6 mg/dL Reason For Referral No Information Medications Medication SIG (Take, Route, Frequency, Duration) Notes Start Date End Date Status Budesonide 0.5 MG/2ML INHALE 2 ML BY NEBULIZATION TWICE DAILY FOR 30 DAYS Inhalation Active Alfuzosin HCl ER 10 MG 1 tablet after me al Orally at bed time Active Montelukast Sodium 10 MG TAKE 1 TABLET B Y MOUTH AT BEDTIME Diagnosis Unavailable Oral Active Roflumilast 500 MCG 1 tablet Orally Once a day Active Omeprazole 20 MG TAKE 1 CAPSULE BY [facility] EVERY DAY 30 MINUTES BEFORE BREAKFAST Active Ventolin HFA 108 (90 Base) MCG/ACT INHALE 2 PUFFS INTO THE LUNGS EVERY 6 HOURS Active DuoNeb 0.5-2.5 (3) MG/3ML 3 mL as needed Inhalation twice a day Active Tylenol 325 MG 1 tablet as needed Orally every 6 hrs As needed Active Alfuzosin HCl ER 10 MG 1 tablet Orally Once a day 05/01/2025 Active Finasteride 5 MG 1 tablet Orally Once a day 2024 Active Albuterol Sulfate (2.5 MG/3ML) 0.083% INHALE 3 ML TWICE DAILY WITH NEBULIZER Inhalation Active Finasteride 5 MG 1 tablet Orally at b ed time Active Immunizations Vaccine Route Administration Date Status [...] Problem Status W/U Status Risk Notes Problem 3865819 Former smoker (Z87.891) Active confirmed He is highly motivated not to smoke. We discussed a plan to prevent relapse in times of stress and illness. Problem 488380075 Overweight (BMI 25.0-29.9) (E66.3) Active confirmed He is now overweight with a body mass index of 25.68. We discussed his weight loss strategy and I reinforced continued weight loss through diet restricted in fat calories and sodium. Problem Obese class I (finding) (934823740923 107) Obesity (BMI 30.0-34.9) (E66.9) Active confirmed His body mass index is 31 with 243 pounds. We have reviewed his weight loss strategy. We have discussed diet and nutrition. I recommended he lose weight at a rate of one half up of a pound to a diet restricted in fat calories and sodium combined with regular exercise. Problem 87186066 Skin lesion (L98.9) Active confirmed He will call me in 3 weeks. If the lesion does not resolve he will be seen by a housing counselor. Problem 10247992 Simple chronic bronchitis (J41.0) Active confirmed Problem 88415810 Chronic obstructive pulmonary disease, unspecified COPD type (J44.9) Active confirmed He will continu e to see the geography faculty member regularly. The 6 mm pulmonary nodule will be followed carefully. He is no longer smoking. He will exercise regularly. He will continue to use his nebulizer and his new inhaler. Problem Benign prostatic hypertrophy (513120541) Benign prostatic hypertrophy (N40.0) Active confirmed He recently became unable to sleep and has overflow incontinence with a massively distended bladder. He has been hospitalized. Problem [id number] Gastroesophageal reflux disease without esophagitis (K21.9) Active confirmed His symptoms ar e well-controlled with current regimen. No change was necessary today. Problem 709732620 Urine retention (R33.9) Active confirmed He was acutely ill and was taken [...] next week for an outpatient voiding trial. Problem 270524966 History of appendectomy (Z90.49) Active confirmed This was done a t the age of 7. 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 Problem 930159751 Pulmonary nodule less than 6 mm determined by computed tomography of lung (R91.1) Active confirmed The 6 mm left lower lobe nodule is stable on a CT scan done in January of this year. He will have an annual CT scan. Vital Signs Heart Rate 90 /min 05/21/2025 Temperature 97.9 degrees Fahrenheit 05/21/2025 Blood pressure diastolic 43 mm Hg 05/21/2025 Height 74 in 05/21/2025 Blood pressure systolic 99 mm Hg 05/21/2025 Weight 197 lbs 05/21/2025 BMI 25.29 kg/m2 05/21/2025 Encounters Encounter Location Date Provider Diagnosis Thaddeus Oreilly III, MD [address] [place] [address] [place] [address] 08/13/2024 Thaddeus Oreilly Benign prostatic hypertrophy N40.0 ; Chronic obstructive pulmonary disease, unspecified COPD type J44.9 ; Former smoker Z87.891 ; Gastroesophageal reflux disease without esophagitis K21.9 and Overweight (BMI 25.0-29.9) E66.3 Thaddeus Oreilly III, MD [address] [place] [address] [place] [address] 11/05/2024 Thaddeus Oreilly History of appendect lyndsey Z90.49 ; Chronic obstructive pulmonary disease, unspecified COPD type J44.9 ; Former smoker Z87.891 ; Gastroesophageal reflux disease without esophagitis K21.9 ; Benign prostatic hypertrophy N40.0 and Overweight (BMI 25.0-29.9) E66.3 Thaddeus Oreilly III, MD [address] [place] [address] [place] [address] 02/22/2025 Thaddeus Oreilly Urine retention R33. 9 ; Chronic obstructive pulmonary disease, unspecified COPD type J44.9 ; Gastroesophageal reflux disease without esophagitis K21.9 ; Former smoker Z87.891 ; Overweight (BMI 25.0-29.9) E66.3 and Benign prostatic hypertrophy N40.0 Thaddeus Oreilly III, MD [address] [place] [address] [place] [address] 04/26/2025 Thaddeus Oreilly Chronic obstructive pulmonary disease, unspecified COPD type J44.9 ; Urine retention R33.9 ; Former smoker Z87.891 ; Overweight (BMI 25.0-29.9) E66.3 and Benign prostatic hypertrophy N40.0 Thaddeus Oreilly III, MD [address] [place] [address] [place] [address] 05/21/2025 Thaddeus Oreilly Benign prostatic hypertrophy N40.0 ; Urine retention R33.9 ; Overweight (BMI 25.0-29.9) E66.3 ; Former smoker Z87.891 ; Gastroesophageal reflux disease without esophagitis K21.9 ; Pulmonary nodule less than 6 mm determined by computed tomography of lung R91.1 and Chronic obstructive pulmonary disease, unspecified COPD type J44.9 Thaddeus Oreilly III, MD [address] [place] [address] [place] [address] 03/13/2025 Thaddeus Oreilly III, MD [address] [place] [address] [place] [address] 04/22/2025 Thaddeus Oreilly III, MD [address] [place] [address] [place] [address] 04/24/2025 Thaddeus Oreilly III, MD [address] [place] [address] [place] [address] 04/30/2025 Thaddeus Oreilly III, MD [address] [place] [address] [place] [address] 05/01/2025 Thaddeus Oreilly Assessments Encounter Date Diagnosis (ICD Code) Assessment Notes T reatment Notes Treatment Clinical Notes 08/13/2024 Chronic obstructive pulmonary disease, unspecified COPD type (ICD-10 - J44.9) He will continue to see the geography faculty member regularly. The 6 mm pulmonary nodule will [...] J44.9) He will continue to see the geography faculty member regularly. The 6 mm pulmonary nodule will be followed carefully. He will refrain from smoking. He will exercise regularly. He will continue to use his nebulizer and his new inhaler. 11/05/2024 History of appendectomy (ICD-10 - Z90.49) This was done at the age of 7. 02/22/2025 Urine retention (ICD-10 - R33.9) He was acutely ill and was taken to the emergency room at [facility] across the street from my office he was evaluated and subsequently admitted to the hospital. 04/26/2025 Chronic obstructive pulmonary disease, unspecified COPD type (ICD-10 - J44.9) He will continue to see the geography faculty member regularly. The 6 mm pulmonary nodule will [...] week for an outpatient voiding trial. 05/21/2025 Benign prostatic hypertrophy (ICD-10 - N40.0) 05/21/2025 Urine retention (ICD-10 - R33.9) He was acutely ill and was taken to the emergency room at [facility] [place] the [place] my office he was evaluated and subsequently admitted to the hospital.He was discharged after 6 days and spent 2 months in rehabilitation and is now living at home alone with nursing support. He has an indwelling Mojica catheter in place. He will see urology next week for an outpatient voiding trial. 08/13/2024 Former smoker (ICD-1 0 - Z87.891) He is highly motivated not to smoke. We discussed a plan to prevent relapse in times of stress and illness. 11/05/2024 Former smoker (ICD-1 0 - Z87.891) He is highly motivated not to smoke. We discussed a plan to prevent relapse in times of stress and illness. 02/22/2025 Chronic obstructive pulmonary disease, unspecified COPD type (ICD-10 - J44.9) He will continue to see the geography faculty member regularly. The 6 mm pulmonary nodule will be followed carefully. He will refrain from smoking. He will exercise regularly. He will continue to use his nebulizer and his new inhaler. 02/22/2025 Gastroesophageal reflux disease without esophagitis (ICD-10 - K21.9) His symptoms are well-controlled with current regimen. No change was necessary today. 04/26/2025 Former smoker (ICD-1 0 - Z87.891) He is highly motivated not to smoke. We discussed a plan to prevent relapse in times of stress and illness. 05/21/2025 Overweight (BMI 25.0-29.9) (ICD-10 - E66.3) He is now overweight with a body mass index of 25.68. We discussed his weight loss strategy and I reinforced continued weight loss through diet restricted in fat calories and sodium. 08/13/2024 Gastroesophageal reflux disease without esophagitis (ICD-10 - K21.9) His symptoms are well-controlled with current regimen. No change was necessary today. 11/05/2024 Gastroesophageal reflux disease without esophagitis (ICD-10 - K21.9) His symptoms are well-controlled with current regimen. No change was necessary today. 02/22/2025 Former smoker (ICD-1 0 - Z87.891) He [...] in times of stress and illness. 08/13/2024 Overweight (BMI 25.0-29.9) (ICD-10 - E66.3) [...] he could make to reduce this nocturia. 02/22/2025 Overweight (BMI 25.0-29.9) (ICD-10 - E66.3) He [...] massively distended bladder. He has been hospitalized. 05/21/2025 Gastroesophageal reflux disease without esophagitis (ICD-10 - K21.9) His symptoms are well-controlled with current regimen. No change was necessary today. 11/05/2024 Overweight (BMI 25.0-29.9) (ICD-10 - E66.3) He has lost 5 pounds and is now overweight with a body mass index of 29. We discussed his weight loss strategy and I reinforced continued weight loss through diet restricted in fat calories and sodium. 02/22/2025 Benign prostatic hypertrophy (ICD-10 - N40.0) He recently became unable to sleep and has overflow incontinence with a massively distended bladder. He has been hospitalized. 05/21/2025 Pulmonary nodule les s than 6 mm determined by computed tomography of lung (ICD-10 - R91.1) The 6 mm left lower lobe nodule is stable on a CT scan done in January of this year. He will have an annual CT scan. 05/21/2025 Chronic obstructive pulmonary disease, unspecified COPD type (ICD-10 - J44.9) He will continue to see the geography faculty member regularly. The 6 mm pulmonary nodule will be followed carefully. He is no longer smoking. He will exercise regularly. He will continue to use his nebulizer and his new inhaler. Plan Of Treatment Pending Test Test Name Order Date PROFILE, FASTING (COMPREHENSIVE METABOLI C) 03/31/2022 PROFILE, FASTING (COMPREHENSIVE METABOLI C) 12/02/2021 PROFILE, FASTING (COMPREHENSIVE METABOLI C) 05/21/2025 PROFILE, FASTING (COMPREHENSIVE METABOLI C) 11/05/2024 PROFILE, FASTING (COMPREHENSIVE METABOLI C) 10/15/2020 PROFILE, FASTING (COMPREHENSIVE METABOLI C) 08/13/2024 PROFILE, RANDOM (COMPREHENSIVE METABOLIC ) 09/02/2021 LIPID PANEL 10/15/2020 LIPID PANEL 12/02/2021 LIPID PANEL 09/02/2021 PSA, TOTAL 09/02/2021 PSA, TOTAL 08/13/2024 PSA, TOTAL 10/15/2020 PSA, TOTAL 03/31/2022 PSA, TOTAL 05/21/2025 PSA, TOTAL 12/02/2021 PSA, TOTAL 11/05/2024 CBC w DIFF 11/05/2024 CBC w DIFF 09/02/2021 CBC w DIFF 10/15/2020 CBC w DIFF 03/31/2022 CBC w DIFF 05/21/2025 CBC w DIFF 12/02/2021 XR CHEST 2 VIEW PA & LAT 05/22/2018 XR CHEST 2 VIEW PA & LAT 03/12/2020 Echocardiogram 05/22/2018 PFT with DLCO 04/04/2020 CBC WITH AUTO DIFF 08/13/2024 Lipid Panel 11/05/2024 Lipid Panel 08/13/2024 Lipid Panel 03/31/2022 Lipid Panel 05/21/2025 Next Appt Details Provider Name:Thaddeus Oreilly, 06/10/2025 03:15:00 PM, [address] [place] [address] [address], [place], [address], Provider Name:Thaddeus Oreilly, 11/06/2025 03:00:00 PM, [address] [place] [address] [address], [place], [address], Insurance Providers Payer Name Payer Address Payer Phone Subscriber Number Group Number Insured Name Patient Relationship to Insured Coverage Start Date Coverage End Date MEDICARE NGS [address] [place] [address] [id number] CURT WOODS Self - patient is the insured MEDICAID [place] [address] [place] [id number] CURT WOODS Self - patient is the insured Medical (General) History Medical History History ICD Code COPD Emphysema Diffusion defect 6 mm pulmonary nodule November 2021 Obesity Benign prostatic hypertrophy Glaucoma Former smoker GERD Surgical History Surgery Date(Month/Year) No history appendectomy age 7 Hospitalization History Reason Date(Month/Year) No history
--- OUTSIDE RECORDS SUMMARY | 2025-05-23 11:17 | XMS_ITS | Encounter Summary ---
Author Organization [facility] Address [address] [place] [address] Care Team Providers Care Global Recruiter Name Role Phone Tyler Castillo MD Primary Care Provider [phone] Encounter Details Date Type Department Care Team (Late st Contact Info) Description 03/05/2025 Lab Requisition [facility] - Main Lab [address] [facility] [place] [address] Scott Starr MD [address] [place], [place] [phone] Anemia, unspecified Social History Tobacco Use Types Packs/Day [...] Associated Diagnosis Comments COMPLETE BLOOD COUNT Routine 03/05/2025 7:35 AM EDT Anemia, unspecified PHOSPHORUS Routine 03/05/2025 7:35 AM EDT Anemia, unspecified MAGNESIUM Routine 03/05/2025 7:35 AM EDT Anemia, unspecified COMPREHENSIVE METABOLIC PANEL Routine 03/05/2025 7:35 AM EDT Anemia, unspecified documented in this encounter Results * Phosphorus (03/05/2025 7:35 AM EDT) Phosphorus 3.0 2.5 - 4.5 mg/dL LAB CHEMISTRY METHOD 03/05/2025 11:44 AM EDT [facility] Blood Venous blood specimen / Unknown Venipuncture / Unknown 03/05/2025 7:35 AM EDT 03/05/2025 9:55 AM EDT us Scott Starr MD LAB BLOOD ORDERABLES Final Result [facility] [address] [place] [address], [place] [phone] * Magnesium (03/05/2025 7:35 AM EDT) Pathologist [facility] Magnesium 2.3 1.9 - 2.6 mg/dL LAB CHEMISTRY METHOD 03/05/2025 11:44 AM EDT [facility] Blood Venous blood specimen / Unknown Venipuncture / Unknown 03/05/2025 7:35 AM EDT 03/05/2025 9:55 AM EDT us Scott Starr MD LAB BLOOD ORDERABLES Final Result [facility] [address] [place] [address], [place] [phone] * (ABNORMAL) Comprehensive metabolic panel (03/05/2025 7:35 AM EDT) Sodium 139 133 - 145 mmol/L LAB CHEMISTRY METHOD 03/05/2025 12:05 PM EDT [facility] Potassium 4.1 3.5 - 5.5 mmol/L LAB CHEMISTRY METHOD 03/05/2025 12:05 PM EDT [facility] Chloride 105 96 - 110 mmol/L LAB CHEMISTRY METHOD 03/05/2025 12:05 PM EDT [facility] CO2 24 21 - 32 mmol/L LAB CHEMISTRY METHOD 03/05/2025 12:05 PM EDT [facility] Anion Gap 10 3 - 11 LAB CHEMISTRY METHOD 03/05/2025 12:05 PM [facility] Glucose 77 70 - 100 mg/dL LAB CHEMISTRY METHOD 03/05/2025 12:05 PM [facility] BUN 21 5 - 25 mg/dL LAB CHEMISTRY METHOD 03/05/2025 12:05 PM [facility] Creatinine 1.04 0.70 - 1.30 mg/dL LAB CHEMISTRY METHOD 03/05/2025 12:05 PM [facility] eGFR 74 >=60 mL/min/1. 73m2 LAB CHEMISTRY METHOD 03/05/2025 12:05 PM [facility] Comment:Calculation based on the Chronic Kidney Disease Epidemiology Collaboration (CKD-EPI) equation refit without adjustment for race. BUN/Creatinine Ratio 20.2 LAB CHEMISTRY METHOD 03/05/2025 12:05 PM [facility] Calcium 9.0 8.5 - 10.5 mg/dL LAB CHEMISTRY METHOD 03/05/2025 12:05 PM [facility] AST (SGOT) 15 10 - 42 unit/L LAB CHEMISTRY METHOD 03/05/2025 12:05 PM [facility] ALT (SGPT) 27 10 - 60 unit/L LAB CHEMISTRY METHOD 03/05/2025 12:05 PM [facility] Alkaline Phosphatase 89 42 - 121 unit/L LAB CHEMISTRY METHOD 03/05/2025 12:05 PM [facility] Total Protein 6.6 6.0 - 8.0 g/dL LAB CHEMISTRY METHOD 03/05/2025 12:05 PM [facility] Albumin 3.1(L) 3.2 - 5.0 g/dL LAB CHEMISTRY METHOD 03/05/2025 12:05 PM [facility] Total Bilirubin 0.4 0.0 - 1.4 mg/dL LAB CHEMISTRY METHOD 03/05/2025 12:05 PM EDT [facility] Blood Venous blood specimen / Unknown Venipuncture / Unknown 03/05/2025 7:35 AM EDT 03/05/2025 9:55 AM EDT Scott Starr MD LAB BLOOD ORDERABLES Final Result [facility] [address] [place] [address], * Complete blood count (03/05/2025 7:35 AM EDT) WBC 8.7 4.8 - 10.8 K/mcL LAB HEMETOLOGY METHOD 03/05/2025 11:06 AM [facility] RBC 4.70 4.50 - 5.50 M/mcL LAB HEMETOLOGY METHOD 03/05/2025 11:06 AM [facility] Hemoglobin 14.0 13.5 - 17.5 g/dL LAB HEMETOLOGY METHOD 03/05/2025 11:06 AM [facility] Hematocrit 42.8 42.0 - 54.0 % LAB HEMETOLOGY METHOD 03/05/2025 11:06 AM [facility] MCV 90.7 79.0 - 98.0 FL LAB HEMETOLOGY METHOD 03/05/2025 11:06 AM [facility] MCH 29.7 27.0 - 32.0 pcg LAB HEMETOLOGY METHOD 03/05/2025 11:06 AM [facility] MCHC 32.7 32.0 - 37.0 g/dL LAB HEMETOLOGY METHOD 03/05/2025 11:06 AM [facility] RDW 12.9 11.0 - 15.0 % LAB HEMETOLOGY METHOD 03/05/2025 11:06 AM [facility] Platelets 383 130 - 400 K/mcL LAB HEMETOLOGY METHOD 03/05/2025 11:06 AM EDT [facility] MPV 9.0 7.0 - 11.0 FL LAB HEMETOLOGY METHOD 03/05/2025 11:06 AM EDT [facility] NRBC 0.0 <1.0 % LAB HEMETOLOGY METHOD 03/05/2025 11:06 AM EDT [facility] NRBC Absolute 0.00 <0.10 K/mcL LAB HEMETOLOGY METHOD 03/05/2025 11:06 AM EDT [facility] Blood Venous blood specimen / Unknown Venipuncture / Unknown 03/05/2025 7:35 AM EDT 03/05/2025 9:55 AM EDT Scott Starr MD LAB BLOOD ORDERABLES Final Result [facility] [address] [place] [address], documented in this encounter Visit Diagnoses Diagnosis Anemia, unspecified documented in this encounter Additional Health Concerns Infection Onset Date Last Indicated Resolved Time C. difficile Rule-Out 04/04/2025 04/04/20252024 12:46 PM EDT documented as of this encounter Care Teams Global Recruiter Relationship Specialty Start Date End Date Tyler Castillo MD [address] [place] [address] PCP - General Internal Medicine 10/20/15 documented as of this encounter
--- OUTSIDE RECORDS SUMMARY | 2025-05-23 11:17 | XMS_ITS | Encounter Summary ---
Author Organization [facility] Address [address] [place] [address] Care Team Providers Care Lab Director Name Role Phone Tyler Castillo MD Primary Care Provider [phone] Encounter Details Date Type Department Care Team (Late st Contact Info) Description 03/18/[address] [facility] - Main Lab [address] [facility] [place] [address] Scott Starr MD [address] [place], [place] [phone] Anemia, unspecified Social History Tobacco Use Types [...] Procedure Name Priority Date/Time Associated Diagnosis Comments SST - GOLD Routine 03/19/2025 8:12 AM EDT Anemia, unspecified RED - PLAIN Routine 03/19/2025 8:12 AM EDT Anemia, unspecified COMPLETE BLOOD COUNT Routine 03/19/2025 8:12 AM EDT Anemia, unspecified THYROID STIMULATING HORMONE Routine 03/19/2025 8:12 AM EDT Anemia, unspecified CORTISOL Routine 03/19/2025 8:12 AM EDT Anemia, unspecified BASIC METABOLIC PANEL Routine 03/19/2025 8:12 AM EDT Anemia, unspecified documented in this encounter Results * Red tube (03/19/2025 8:12 AM EDT) Extra Tube Hold for add-ons. 03/19/2025 11:01 AM EDT [facility] Comment:Auto resulted. Blood Venous blood specimen / Unknown Venipuncture / Unknown 03/19/2025 8:12 AM EDT 03/19/2025 9:04 AM EDT us Scott Starr MD LAB BLOOD ORDERABLES Final Result [facility] [address] [place] [address], [place] [phone] * SST tube (03/19/2025 8:12 AM EDT) Extra Tube Hold for add-ons. 03/19/2025 11:01 AM EDT [facility] Comment:Auto resulted. Blood Venous blood specimen / Unknown Venipuncture / Unknown 03/19/2025 8:12 AM EDT 03/19/2025 9:04 AM EDT us Scott Starr MD LAB BLOOD ORDERABLES Final Result [facility] [address] [place] [address], [place] [phone] * Cortisol (03/19/2025 8:12 AM EDT) Cortisol 35.1 mcg/dL LAB CHEMISTRY METHOD 03/19/2025 11:51 AM EDT [facility] Blood Venous blood specimen / Unknown Venipuncture / Unknown 03/19/2025 8:12 AM EDT 03/19/2025 9:04 AM EDT Narrative [facility] - 03/19/2025 11:51 AM EDT CORTISOL REFERENCE RANGE 8 AM SPEC: 5.0-23.0 mcg/dL 4 PM SPEC: 3.0-16.0 mcg/dL 8 PM SPEC: <5.0 mcg/dL us Scott Starr MD LAB BLOOD ORDERABLES Final Result Performing Organization Address [facility]/ZIP Co de Phone Number [facility] [address] [place] [address], [place] [phone] * Thyroid stimulating hormone (03/19/2025 8:12 AM EDT) Pathologist [facility] TSH 0.86 0.40 - 4.00 mcIU/mL LAB CHEMISTRY METHOD 03/19/2025 11:51 AM EDT [facility] Blood Venous blood specimen / Unknown Venipuncture / Unknown 03/19/2025 8:12 AM EDT 03/19/2025 9:04 AM EDT us Scott Starr MD LAB BLOOD ORDERABLES Final Result Performing Organization Address [facility] Co de Phone Number [facility] [address] [place] [address], [place] [phone] * Basic metabolic panel (03/19/2025 8:12 AM EDT) Pathologist [facility] Sodium 137 133 - 145 mmol/L LAB CHEMISTRY METHOD 03/19/2025 10:43 AM EDT [facility] Potassium 4.5 3.5 - 5.5 mmol/L LAB CHEMISTRY METHOD 03/19/2025 10:43 AM EDT [facility] Chloride 105 96 - 110 mmol/L LAB CHEMISTRY METHOD 03/19/2025 10:43 AM EDT [facility] CO2 23 21 - 32 mmol/L LAB CHEMISTRY METHOD 03/19/2025 10:43 AM EDT [facility] Anion Gap 9 3 - 11 LAB CHEMISTRY METHOD 03/19/2025 10:43 AM T [facility] Glucose 94 70 - 100 mg/dL LAB CHEMISTRY METHOD 03/19/2025 10:43 AM [facility] BUN 18 5 - 25 mg/dL LAB CHEMISTRY METHOD 03/19/2025 10:43 AM [facility] Creatinine 1.10 0.70 - 1.30 mg/dL LAB CHEMISTRY METHOD 03/19/2025 10:43 AM T [facility] eGFR 70 >=60 mL/min/1. 73m2 LAB CHEMISTRY METHOD 03/19/2025 10:43 AM [facility] Comment:Calculation based on the Chronic Kidney Disease Epidemiology Collaboration (CKD-EPI) equation refit without adjustment for race. BUN/Creatinine Ratio 16.4 LAB CHEMISTRY METHOD 03/19/2025 10:43 AM [facility] Calcium 9.5 8.5 - 10.5 mg/dL LAB CHEMISTRY METHOD 03/19/2025 10:43 AM [facility] Blood Venous blood specimen / Unknown Venipuncture / Unknown 03/19/2025 8:12 AM EDT 03/19/2025 9:04 AM EDT Scott Starr MD LAB BLOOD ORDERABLES Final Result [facility] [address] [place] [address], * Complete blood count (03/19/2025 8:12 AM EDT) WBC 10.7 4.8 - 10.8 K/mcL LAB HEMETOLOGY METHOD 03/19/2025 9:33 AM EDT [facility] RBC 5.10 4.50 - 5.50 M/mcL LAB HEMETOLOGY METHOD 03/19/2025 9:33 AM EDT [facility] Hemoglobin 15.1 13.5 - 17.5 g/dL LAB HEMETOLOGY METHOD 03/19/2025 9:33 AM EDT [facility] Hematocrit 46.1 42.0 - 54.0 % LAB HEMETOLOGY METHOD 03/19/2025 9:33 AM EDT [facility] MCV 91.3 79.0 - 98.0 FL LAB HEMETOLOGY METHOD 03/19/2025 9:33 AM EDT [facility] MCH 29.9 27.0 - 32.0 pcg LAB HEMETOLOGY METHOD 03/19/2025 9:33 AM EDT [facility] MCHC 32.8 32.0 - 37.0 g/dL LAB HEMETOLOGY METHOD 03/19/2025 9:33 AM EDT [facility] RDW 13.4 11.0 - 15.0 % LAB HEMETOLOGY METHOD 03/19/2025 9:33 AM EDT [facility] Platelets 400 130 - 400 K/mcL LAB HEMETOLOGY METHOD 03/19/2025 9:33 AM EDT [facility] MPV 9.1 7.0 - 11.0 FL LAB HEMETOLOGY [facility] NRBC 0.0 <1.0 % LAB HEMETOLOGY METHOD 03/19/2025 9:33 AM EDT [facility] NRBC Absolute 0.00 <0.10 K/mcL LAB HEMETOLOGY METHOD 03/19/2025 9:33 AM EDT [facility] Blood Venous blood specimen / Unknown Venipuncture / Unknown 03/19/2025 8:12 AM EDT 03/19/2025 9:04 AM EDT us Scott Starr MD LAB BLOOD ORDERABLES Final Result [facility] [address] [place] [address], documented in this encounter Visit Diagnoses Diagnosis Anemia, unspecified documented in this encounter Additional Health Concerns Infection Onset Date Last Indicated Resolved Time C. difficile Rule-Out 04/04/2025 04/04/20252024 12:46 PM EDT documented as of this encounter Care Teams Lab Director Relationship Specialty Start Date End Date Tyler Castillo MD [address] [place] [address] PCP - General Internal Medicine 10/20/15 documented as of this encounter
--- OUTSIDE RECORDS SUMMARY | 2025-05-23 11:17 | XMS_ITS | Encounter Summary ---
Author Organization [facility] Address [address] [place] [address] Care Team Providers Care Backwinder Name Role Phone Tyler Castillo MD Primary Care Provider [phone] Encounter Details Date Type Department Care Team (Late st Contact Info) Description 04/11/2025 Lab Requisition [facility] - Main Lab [address] [place] [address] Scott Starr MD [address] [place], [place] [id number] Anemia, unspecified; Other malaise Social History Tobacco Use Types Packs/Day Years [...] Associated Diagnosis Comments COMPLETE BLOOD COUNT Routine 04/11/2025 4:58 AM EDT Anemia, unspecified Other malaise BASIC METABOLIC PANEL Routine 04/11/2025 4:58 AM EDT Anemia, unspecified Other malaise documented in this encounter Results * (ABNORMAL) Basic metabolic panel (04/11/2025 4:58 AM EDT) Sodium 136 133 - 145 mmol/L LAB CHEMISTRY METHOD 04/11/2025 10:12 AM EDT [facility] ([facility] Potassium 3.8 3.5 - 5.5 mmol/L LAB CHEMISTRY METHOD 04/11/2025 10:12 AM [facility] LAB Chloride 103 96 - 110 mmol/L LAB CHEMISTRY METHOD 04/11/2025 10:12 AM [facility] LAB CO2 25 21 - 32 mmol/L LAB CHEMISTRY METHOD 04/11/2025 10:12 AM [facility] LAB Anion Gap 8 3 - 11 LAB CHEMISTRY METHOD 04/11/2025 10:12 AM [facility] LAB Glucose 78 70 - 100 mg/dL LAB CHEMISTRY METHOD 04/11/2025 10:12 AM [facility] BUN 33(H) 5 - 25 mg/dL LAB CHEMISTRY METHOD 04/11/2025 10:12 AM [facility] LAB Creatinine 1.35(H) 0.70 - 1.30 mg/dL LAB CHEMISTRY METHOD 04/11/2025 10:12 AM [facility] LAB eGFR 54(L) >=60 mL/min/1. 73m2 LAB CHEMISTRY METHOD 04/11/2025 10:12 AM [facility] LAB Comment:Calculation based on the Chronic Kidney Disease Epidemiology Collaboration (CKD-EPI) equation refit without adjustment for race. BUN/Creatinine Ratio 24.4 LAB CHEMISTRY METHOD 04/11/2025 10:12 AM [facility] LAB Calcium 8.3(L) 8.5 - 10.5 mg/dL LAB CHEMISTRY METHOD 04/11/2025 10:12 AM [facility] LAB Blood Venous blood specimen / Unknown Venipuncture / Unknown 04/11/2025 4:58 AM EDT 04/11/2025 9:25 AM EDT us Scott Starr MD LAB BLOOD ORDERABLES Final Result [facility] [address] [place] [address], * (ABNORMAL) Complete blood count (04/11/2025 4:58 AM EDT) [facility] Signature WBC 18.4(H) 4.8 - 10.8 K/mcL LAB HEMETOLOGY METHOD 04/11/2025 9:41 AM [facility] RBC 3.90(L) 4.50 - 5.50 M/mcL LAB HEMETOLOGY METHOD 04/11/2025 9:41 AM [facility] Hemoglobin 11.5(L) 13.5 - 17.5 g/dL LAB HEMETOLOGY METHOD 04/11/2025 9:41 AM [facility] LAB Hematocrit 34.7(L) 42.0 - 54.0 % LAB HEMETOLOGY METHOD 04/11/2025 9:41 AM [facility] LAB MCV 89.9 79.0 - 98.0 FL LAB HEMETOLOGY METHOD 04/11/2025 9:41 AM [facility] LAB MCH 29.8 27.0 - 32.0 pcg LAB HEMETOLOGY METHOD 04/11/2025 9:41 AM [facility] LAB MCHC 33.1 32.0 - 37.0 g/dL LAB HEMETOLOGY METHOD 04/11/2025 9:41 AM [facility] RDW 13.9 11.0 - 15.0 % LAB HEMETOLOGY METHOD 04/11/2025 9:41 AM [facility] LAB Platelets 326 130 - 400 K/mcL LAB HEMETOLOGY METHOD 04/11/2025 9:41 AM [facility] LAB MPV 9.1 7.0 - 11.0 FL LAB HEMETOLOGY METHOD 04/11/2025 9:41 AM [facility] NRBC 0.0 <1.0 % LAB HEMETOLOGY METHOD 04/11/2025 9:41 AM EDT [facility] NRBC Absolute 0.00 <0.10 K/mcL LAB HEMETOLOGY METHOD 04/11/2025 9:41 AM EDT [facility] ([facility]) [facility] Blood Venous blood specimen / Unknown Venipuncture / Unknown 04/11/2025 4:58 AM EDT 04/11/2025 9:25 AM EDT us Scott Starr MD LAB BLOOD ORDERABLES Final Result [facility] [address] [place] [address], documented in this encounter Visit Diagnoses Diagnosis Anemia, unspecified Other malaise documented in this encounter Care Teams Backwinder Relationship Specialty Start Date End Date Tyler Castillo MD [address] [place] [address] PCP - General Internal Medicine 10/20/15 documented as of this encounter
--- OUTSIDE RECORDS SUMMARY | 2025-05-23 11:17 | XMS_ITS | Encounter Summary ---
Author Organization [facility] Address [address] [place] [address] Care Team Providers Care Family Law Attorney Name Role Phone Tyler Castillo MD Primary Care Provider [phone] Encounter Details Date Type Department Care Team (Late st Contact Info) Description 03/25/2025 Lab Requisition [facility] - Main Lab [address] [place] [address] Scott Starr MD [address] [place], [place] [id number] Anemia, unspecified Social History Tobacco Use Types [...] Associated Diagnosis Comments COMPLETE BLOOD COUNT Routine 03/26/2025 8:08 AM EDT Anemia, unspecified BASIC METABOLIC PANEL Routine 03/26/2025 8:08 AM EDT Anemia, unspecified documented in this encounter Results * Basic metabolic panel (03/26/2025 8:08 AM EDT) Sodium 138 133 - 145 mmol/L LAB CHEMISTRY METHOD 03/26/2025 11:14 AM EDT [facility]) [facility] LAB Potassium 5.0 3.5 - 5.5 mmol/L LAB CHEMISTRY METHOD 03/26/2025 11:14 AM [facility] LAB Chloride 105 96 - 110 mmol/L LAB CHEMISTRY METHOD 03/26/2025 11:14 AM [facility] LAB CO2 26 21 - 32 mmol/L LAB CHEMISTRY METHOD 03/26/2025 11:14 AM [facility] LAB Anion Gap 7 3 - 11 LAB CHEMISTRY METHOD 03/26/2025 11:14 AM [facility] LAB Glucose 85 70 - 100 mg/dL LAB CHEMISTRY METHOD 03/26/2025 11:14 AM [facility] LAB BUN 18 5 - 25 mg/dL LAB CHEMISTRY METHOD 03/26/2025 11:14 AM [facility] LAB Creatinine 1.06 0.70 - 1.30 mg/dL LAB CHEMISTRY METHOD 03/26/2025 11:14 AM [facility] LAB eGFR 73 >=60 mL/min/1. 73m2 LAB CHEMISTRY METHOD 03/26/2025 11:14 AM [facility] LAB Comment:Calculation based on the Chronic Kidney Disease Epidemiology Collaboration (CKD-EPI) equation refit without adjustment for race. BUN/Creatinine Ratio 17.0 LAB CHEMISTRY METHOD 03/26/2025 11:14 AM [facility] LAB Calcium 9.5 8.5 - 10.5 mg/dL LAB CHEMISTRY METHOD 03/26/2025 11:14 AM [facility] LAB Blood Venous blood specimen / Unknown Venipuncture / Unknown 03/26/2025 8:08 AM EDT 03/26/2025 10:22 AM EDT us Scott Starr MD LAB BLOOD ORDERABLES Final Result [facility] [address] [place] [address], * Complete blood count (03/26/2025 8:08 AM EDT) WBC 9.5 4.8 - 10.8 K/[facility] LAB HEMETOLOGY METHOD 03/26/2025 10:51 AM [facility] LAB RBC 4.70 4.50 - 5.50 M/[facility] LAB HEMETOLOGY METHOD 03/26/2025 10:51 AM [facility] LAB Hemoglobin 13.9 13.5 - 17.5 g/dL LAB HEMETOLOGY METHOD 03/26/2025 10:51 AM [facility] LAB Hematocrit 43.4 42.0 - 54.0 % LAB HEMETOLOGY METHOD 03/26/2025 10:51 AM [facility] LAB MCV 91.6 79.0 - 98.0 FL LAB HEMETOLOGY METHOD 03/26/2025 10:51 AM [facility] LAB MCH 29.3 27.0 - 32.0 pcg LAB HEMETOLOGY METHOD 03/26/2025 10:51 AM [facility] LAB MCHC 32.0 32.0 - 37.0 g/dL LAB HEMETOLOGY METHOD 03/26/2025 10:51 AM [facility] LAB RDW 14.1 11.0 - 15.0 % LAB HEMETOLOGY METHOD 03/26/2025 10:51 AM [facility] LAB Platelets 378 130 - 400 K/[facility] LAB HEMETOLOGY METHOD 03/26/2025 10:51 AM [facility] LAB MPV 9.5 7.0 - 11.0 FL LAB HEMETOLOGY METHOD 03/26/2025 10:51 AM [facility] LAB NRBC 0.0 <1.0 % LAB HEMETOLOGY METHOD 03/26/2025 10:51 AM [facility] LAB NRBC Absolute 0.00 <0.10 K/[facility] LAB HEMETOLOGY METHOD 03/26/2025 10:51 AM [facility] LAB Blood Venous blood specimen / Unknown Venipuncture / Unknown 03/26/2025 8:08 AM EDT 03/26/2025 10:22 AM EDT Scott Starr MD LAB BLOOD ORDERABLES Final Result [facility] ([facility]) [facility] [address] [place] [address], documented in this encounter Visit Diagnoses Diagnosis Anemia, unspecified documented in this encounter Additional Health Concerns Infection Onset Date Last Indicated Resolved Time C. difficile Rule-Out 04/04/2025 04/04/20252024 12:46 PM EDT documented as of this encounter Care Teams Family Law Attorney Relationship Specialty Start Date End Date Tyler Castillo MD [address] [place] [address] PCP - General Internal Medicine 10/20/15 documented as of this encounter
--- OUTSIDE RECORDS SUMMARY | 2025-05-23 11:17 | XMS_ITS | Clinical Summary ---
Author Organization [address] Address [address] [place] [address] Phone Care Team Providers Care Supervisor [employer] Name Role Phone Tyler Castillo MD Primary Care Provider Allergies No known active allergies Medications polyethylene glycol (COLYTE) 240-22.72-6.72 -5.84 gram solution Drink 8 oz every 15 mins over 2 sittings as directed. Finish the entire jug. 04/20/2016 Active Active Problems Problem Noted Date Diagnosed Date GERD (gastroesophageal reflux disease) 5 Glaucoma 2012 Encounters Date Type Department Care Team Description 04/23/2025 Lab Requisition [facility] Lab [address] [place] [phone] Scott Starr MD Anemia, unspecified; Acute kidney failure, unspecified (CMS/FORMERLY [facility] V24) 04/15/2025 Lab Requisition [facility] Lab [address] [place] [phone] Scott Starr MD Benign prostatic hyperplasia without lower urinary tract symptoms; Urinary tract infection, site not specified 04/11/2025 Lab Requisition [facility] Lab [address] [place] [phone] Scott Starr MD Anemia, unspecified; Other malaise 04/07/2025 Lab Requisition [facility] Lab [address] [place] [phone] Scott Starr MD Painful micturition, unspecified; Frequency of micturition; Hematuria, unspecified 04/04/2025 Lab Requisition [facility] Lab [address] [place] [phone] Scott Starr MD Diarrhea, unspecified 03/25/2025 Lab Requisition [facility] Lab [address] [place] [phone] Scott Starr MD Anemia, unspecified 03/18/2025 Lab Requisition [facility] Lab [address] [place] [phone] Scott Starr MD Anemia, unspecified 03/11/2025 Lab Requisition [facility] [address] [place] [phone] Scott Starr MD Anemia, unspecified 03/05/2025 Lab Requisition [facility] [address] [place] [phone] Scott Starr MD Anemia, unspecified from Last 3 Months Immunizations Name Administration Dates Next Due Influenza trivalent, with preservative (Fluzone; Afluria) 6mo and older 2012 Influenza, Unspecified 07/06/2018,2016,07/07/2016,2014 Pneumococcal conjugate 13 va lent (Prevnar 13, PCV13) 2mo and older 05/26/2017 Pneumococcal, Unspecified 07/06/2018 Tdap Tetanus diptheria acell ular pertussis (Boostrix; Adacel) 7yo and older 11/18/2014 Surgical History Surgery Date Site/Laterality Comments APPENDECTOMY PROCEDURE: HISTORICAL APPENDECTOMY Medical History Medical History Date Comments Glaucoma 2012 DX:Glaucoma Family History Medical History Relation Name Comments Other: dialysis Brother 1 Other: liver cancer Brother 2 Throat cancer Father's side 1 Other: rheumatic heart disease Mother diabetes Relation Name Status Comments Brother 1 Brother 2 Brother 3 Father's side 1 Father's side 2 Mother Social History Tobacco Use Types Packs/Day Years [...] on file Sexual Orientation Not on file Obstetrics History Plan of Treatment Health Maintenance Due Date Last Done Comments Zoster Vaccines (1 of 2) 1998 Pneumococcal Vaccine: 50+ Years (2 of 2 - PPSV23) 05/26/2018 07/06/2018, 05/26/2017 RSV Immunization Adult Patients (1 - 1-dose 75+ series) 2023 Cholesterol Screening (Lipid Panel) 08/24/2024 03/05/2016 Falls Risk Assessment 08/24/2024 Hepatitis C Screening 08/24/2024 Medicare Annual Wellness Visit 08/24/2024 Social Influencers of Health Screening 08/24/2024 Depression Screening 09/05/2024 DTaP,Tdap,and Td Vaccines (2 - Td or Tdap) 11/18/2024 11/18/2014 COVID-19 Vaccine ( season) 2025 Influenza Vaccine (#1) 2025 8, 05/26/2017, 07/07/2016, Additional history exists HIB Vaccines Aged Out No longer eligi ble based on patient's age to complete this topic HPV Vaccines Aged Out No longer eligi ble based on patient's age to complete this topic Hepatitis A Vaccines Aged Out No long er eligible based on patient's age to complete this topic Hepatitis B Vaccines Aged Out No long er eligible based on patient's age to complete this topic IPV Vaccines Aged Out No longer eligi ble based on patient's age to complete this topic MMR Vaccines Aged Out No longer eligi ble based on patient's age to complete this topic Meningococcal ACWY Vaccine Aged Out N o longer eligible based on patient's age to complete this topic Meningococcal B Vaccine Aged Out No l onger eligible based on patient's age to complete this topic RSV Immunization Patients Under 20 months Aged Out No longer eligible based on patient's age to complete this topic Varicella Vaccines Aged Out No longer eligible based on patient's age to complete this topic Procedures Procedure Name Priority Date/Time Associated Diagnosis Comments BASIC METABOLIC PANEL Routine 04/23/2025 7:12 AM EDT Anemia, unspecified Acute kidney failure, unspecified (CMS/HCC V24) COMPLETE BLOOD COUNT Routine 04/23/2025 7:12 AM EDT Anemia, unspecified Acute kidney failure, unspecified (CMS/[facility] V24) COMPREHENSIVE METABOLIC PANEL Routine 04/16/2025 7:09 AM EDT Benign prostatic hyperplasia without lower urinary tract symptoms Urinary tract infection, site not specified COMPLETE BLOOD COUNT Routine 04/16/2025 7:09 AM EDT Benign prostatic hyperplasia without lower urinary tract symptoms Urinary tract infection, site not specified BASIC METABOLIC PANEL Routine 04/11/2025 4:58 AM EDT Anemia, unspecified Other malaise COMPLETE BLOOD COUNT Routine 04/11/2025 4:58 AM EDT Anemia, unspecified Other malaise URINALYSIS WITH REFLEX MICROSCOPIC AND CULTURE Routine [...] micturition, unspecified Frequency of micturition Hematuria, unspecified BASIC METABOLIC PANEL Routine 03/26/2025 8:08 AM EDT Anemia, unspecified COMPLETE BLOOD COUNT Routine 03/26/2025 8:08 AM EDT Anemia, unspecified RED - PLAIN Routine 03/19/2025 8:12 AM EDT Anemia, unspecified SST - GOLD Routine 03/19/2025 8:12 AM EDT Anemia, unspecified CORTISOL Routine 03/19/2025 8:12 AM EDT Anemia, unspecified THYROID STIMULATING HORMONE Routine 03/19/2025 8:12 AM EDT Anemia, unspecified BASIC METABOLIC PANEL Routine 03/19/2025 8:12 AM EDT Anemia, unspecified COMPLETE BLOOD COUNT Routine 03/19/2025 8:12 AM EDT Anemia, unspecified PHOSPHORUS Routine 03/12/2025 7:13 AM EDT Anemia, unspecified MAGNESIUM Routine 03/12/2025 7:13 AM EDT Anemia, unspecified BASIC METABOLIC PANEL Routine 03/12/2025 7:13 AM EDT Anemia, unspecified COMPLETE BLOOD COUNT Routine 03/12/2025 7:13 AM EDT Anemia, unspecified PHOSPHORUS Routine 03/05/2025 7:35 AM EDT Anemia, unspecified MAGNESIUM Routine 03/05/2025 7:35 AM EDT Anemia, unspecified COMPREHENSIVE METABOLIC PANEL Routine 03/05/2025 7:35 AM EDT Anemia, unspecified COMPLETE BLOOD COUNT Routine 03/05/2025 7:35 AM EDT Anemia, unspecified LIPID PANEL Routine 03/05/2016 from Last 3 Months or Most Recently Relevant to Health Maintenance Results * (ABNORMAL) Complete blood count (04/23/2025 7:12 AM EDT) Only the most recent of7 resultswithin the time period is included. WBC 8.9 4.8 - 10.8 K/[facility] LAB HEMETOLOGY METHOD 04/23/2025 9:[address] [facility] RBC 4.10(L) 4.50 - 5.50 M/mcL LAB HEMETOLOGY METHOD 04/23/2025 9:[address] [facility] Hemoglobin 12.0(L) 13.5 - 17.5 g/dL LAB HEMETOLOGY METHOD 04/23/2025 9:[address] [facility] Hematocrit 37.6(L) 42.0 - 54.0 % LAB HEMETOLOGY METHOD 04/23/2025 9:[address] [facility] MCV 91.0 79.0 - 98.0 FL LAB HEMETOLOGY METHOD 04/23/2025 9:[address] [facility] MCH 29.1 27.0 - 32.0 pcg LAB HEMETOLOGY METHOD 04/23/2025 9:[address] [facility] MCHC 31.9(L) 32.0 - 37.0 g/dL LAB HEMETOLOGY METHOD 04/23/2025 9:[address] [facility] RDW 14.4 11.0 - 15.0 % LAB HEMETOLOGY METHOD 04/23/2025 9:[address] [facility] Platelets 437(H) 130 - 400 K/mcL LAB HEMETOLOGY METHOD 04/23/2025 9:[address] [facility] MPV 8.8 7.0 - 11.0 FL LAB HEMETOLOGY METHOD 04/23/2025 9:[address] [facility] NRBC 0.0 <1.0 % LAB HEMETOLOGY METHOD 04/23/2025 9:[address] [facility] NRBC Absolute 0.00 <0.10 K/mcL LAB HEMETOLOGY METHOD 04/23/2025 9:[address] [facility] Blood Venous blood specimen / Unknown Venipuncture / Unknown 04/23/2025 7:12 AM EDT 04/23/2025 9:11 AM EDT us Scott Starr MD LAB BLOOD ORDERABLES Final Result [facility] [address] [place] [address], [place] [phone] * Basic metabolic panel (04/23/2025 7:12 AM EDT) Only the most recent of5 resultswithin the time period is included. Sodium 139 133 - 145 mmol/L LAB CHEMISTRY METHOD 04/23/2025 10:[address] [facility] Potassium 4.4 3.5 - 5.5 mmol/L LAB CHEMISTRY METHOD 04/23/2025 10:[address] [facility] Chloride 107 96 - 110 mmol/L LAB CHEMISTRY METHOD 04/23/2025 10:[address] [facility] CO2 28 21 - 32 mmol/L LAB CHEMISTRY METHOD 04/23/2025 10:[address] [facility] Anion Gap 4 3 - 11 LAB CHEMISTRY METHOD 04/23/2025 10:[address] [facility] Glucose 74 70 - 100 mg/dL LAB CHEMISTRY METHOD 04/23/2025 10:[address] [facility] BUN 18 5 - 25 mg/dL LAB CHEMISTRY METHOD 04/23/2025 10:[address] [facility] Creatinine 1.09 0.70 - 1.30 mg/dL LAB CHEMISTRY METHOD 04/23/2025 10:[address] [facility] eGFR 70 >=60 mL/min/1. 73m2 LAB CHEMISTRY METHOD 04/23/2025 10:[address] [facility] Comment:Calculation based on the Chronic Kidney Disease Epidemiology Collaboration (CKD-EPI) equation refit without adjustment for race. BUN/Creatinine Ratio 16.5 LAB CHEMISTRY METHOD 04/23/2025 10:[address] [facility] Calcium 9.1 8.5 - 10.5 mg/dL LAB CHEMISTRY METHOD 04/23/2025 10:[address] [facility] Blood Venous blood specimen / Unknown Venipuncture / Unknown 04/23/2025 7:12 AM EDT 04/23/2025 9:11 AM EDT Scott Starr MD LAB BLOOD ORDERABLES Final Result [facility] [address] [place] [address], * (ABNORMAL) Comprehensive metabolic panel (04/16/2025 7:09 AM EDT) Only the most recent of2 resultswithin the time period is included. Sodium 139 133 - 145 mmol/L LAB CHEMISTRY METHOD 04/16/2025 12:[address] [facility] Potassium 4.4 3.5 - 5.5 mmol/L LAB CHEMISTRY METHOD 04/16/2025 12:[address] [facility] Chloride 105 96 - 110 mmol/L LAB CHEMISTRY METHOD 04/16/2025 12:[address] [facility] CO2 29 21 - 32 mmol/L LAB CHEMISTRY METHOD 04/16/2025 12:[address] [facility] Anion Gap 5 3 - 11 LAB CHEMISTRY METHOD 04/16/2025 12:[address] [facility] Glucose 85 70 - 100 mg/dL LAB CHEMISTRY METHOD 04/16/2025 12:[address] [facility] BUN 21 5 - 25 mg/dL LAB CHEMISTRY METHOD 04/16/2025 12:[address] [facility] Creatinine 1.10 0.70 - 1.30 mg/dL LAB CHEMISTRY METHOD 04/16/2025 12:[address] [facility] eGFR 70 >=60 mL/min/1. 73m2 LAB CHEMISTRY METHOD 04/16/2025 12:[address] [facility] Comment:Calculation based on the Chronic Kidney Disease Epidemiology Collaboration (CKD-EPI) equation refit without adjustment for race. BUN/Creatinine Ratio 19.1 LAB CHEMISTRY METHOD 04/16/2025 12:[address] [facility] Calcium 8.5 8.5 - 10.5 mg/dL LAB CHEMISTRY METHOD 04/16/2025 12:[address] [facility] AST (SGOT) 19 10 - 42 unit/L LAB CHEMISTRY METHOD 04/16/2025 12:[address] [facility] ALT (SGPT) 29 10 - 60 unit/L LAB CHEMISTRY METHOD 04/16/2025 12:[address] [facility] Alkaline Phosphatase 78 42 - 121 unit/L LAB CHEMISTRY METHOD 04/16/2025 12:[address] [facility] Total Protein 6.6 6.0 - 8.0 g/dL LAB CHEMISTRY METHOD 04/16/2025 12:[address] [facility] Albumin 2.5(L) 3.2 - 5.0 g/dL LAB CHEMISTRY METHOD 04/16/2025 12:[address] [facility] Total Bilirubin 0.3 0.0 - 1.4 mg/dL LAB CHEMISTRY METHOD 04/16/2025 12:[address] [facility] Blood Venous blood specimen / Unknown Venipuncture / Unknown 04/16/2025 7:09 AM EDT 04/16/2025 8:53 AM EDT us Scott Starr MD LAB BLOOD ORDERABLES Final Result [facility] [address] [place] [address], * (ABNORMAL) Urinalysis with reflex microscopic and culture (04/07/2025 12:00 AM ED) Specific [place] Urine 1.015 1.003 - 1.030 LAB URINALYSIS - AUTOMATED METHOD 04/07/2025 10:[address] [facility] pH, Urine 6.0 5.0 - 8.0 pH LAB URINALYSIS - AUTOMATED METHOD 04/07/2025 10:[address] [facility] Leukocytes, Urine Large(A) Negative LAB URINALYSIS - AUTOMATED METHOD 04/07/2025 10:[address] [facility] Nitrite, Urine Negative Negative LAB URINALYSIS - AUTOMATED METHOD 04/07/2025 10:[address] [facility] Protein, Urine 300(A) <=Trace mg/dL LAB URINALYSIS - AUTOMATED METHOD 04/07/2025 10:[address] [facility] Glucose, Urine Negative Negative mg/dL LAB URINALYSIS - AUTOMATED METHOD 04/07/2025 10:[address] [facility] Ketones, Urine Negative Negative mg/dL LAB URINALYSIS - AUTOMATED METHOD 04/07/2025 10:[address] [facility] Urobilinogen , Urine 0.2 0.2 - 1.0 mg/dL LAB URINALYSIS - AUTOMATED METHOD 04/07/2025 10:[address] [facility] Bilirubin, Urine Negative Negative LAB URINALYSIS - AUTOMATED METHOD 04/07/2025 10:[address] [facility] Blood, Urine Large(A) Negative LAB URINALYSIS - AUTOMATED METHOD 04/07/2025 10:[address] [facility] RBC, Urine 508.8(H) 0 - 4 /HPF LAB URINALYSIS - AUTOMATED METHOD 04/07/2025 10:[address] [facility] WBC, Urine >4,000(H) 0 - 4 /HPF LAB URINALYSIS - AUTOMATED METHOD 04/07/2025 10:07 AM EDT [facility] Squamous Epithelial, Urine 20 0 - 60 /LPF LAB URINALYSIS - AUTOMATED METHOD 04/07/2025 10:07 AM EDT [facility] Bacteria, Urine Many(A) Negative /HPF LAB URINALYSIS - AUTOMATED METHOD 04/07/2025 10:07 AM EDT [facility] Hyaline Casts, Urine 0.2 0 - 3 /LPF LAB URINALYSIS - AUTOMATED METHOD 04/07/2025 10:07 AM EDT [facility] Urine Urine specimen obtained by clean catch procedure / Unknown 04/07/2025 04/07/2025 9:02 AM EDT us Scott Starr MD LAB URINE ORDERABLES Final Result Performing Organization Address [facility]/ZIP Co de Phone Number [facility] [address] [place] [address], [place] [phone] * [place] urine culture tube (04/07/2025 12:00 AM EDT) Extra Tube Hold for add-ons. 04/07/2025 11:01 AM EDT [facility] Comment:Auto resulted. Urine Urine specimen obtained by clean catch procedure / Unknown 04/07/2025 04/07/2025 9:02 AM EDT us Scott Starr MD LAB URINE ORDERABLES Final Result Performing Organization Address [facility]/ZIP Co de Phone Number [facility] [address] [place] [address], [place] [phone] * (ABNORMAL) Culture urine (04/07/2025 12:00 AM EDT) Culture, Urine >=100,000 CFU/mL Pseudomonas aeruginosa(A) MIRIAM 04/10/2025 7:34 AM EDT [facility] Comment: This is an edited result. Previous organism was Gram negative bacilli on 04/08/2025 at 0830 EDT. Culture, Urine 10,000-49,000 CFU/mL Citrobacter freundii(A) MIRIAM 04/10/2025 7:34 AM EDT [facility] Comment: The organism value for this result has been updated. These results have been appended to the previously preliminary verified report. This is an edited result. Previous organism was Gram negative bacilli on 04/09/2025 at 0938 EDT. Culture, Urine 10,000-49,000 CFU/mL Enterococcus faecalis(A) MIRIAM 04/10/2025 7:34 AM EDT [facility] Comment: The organism value for this [...] LAB MICROBIOLOGY - GENERAL ORDERABLES Final Result [facility] [address] [place] [address], [place] [phone] * SST tube (03/19/2025 8:12 AM EDT) Extra Tube Hold for add-ons. 03/19/2025 11:01 AM EDT [facility] Comment:Auto resulted. Blood Venous blood specimen / Unknown Venipuncture / Unknown 03/19/2025 8:12 AM EDT 03/19/2025 9:04 AM EDT us Scott Starr MD LAB BLOOD ORDERABLES Final Result [facility] [address] [place] [address], [place] [phone] * Red tube (03/19/2025 8:12 AM EDT) Extra Tube Hold for add-ons. 03/19/2025 11:01 AM EDT [facility] Comment:Auto resulted. Blood Venous blood specimen / Unknown Venipuncture / Unknown 03/19/2025 8:12 AM EDT 03/19/2025 9:04 AM EDT us Scott Starr MD LAB BLOOD ORDERABLES Final Result Performing Organization Address City/[facility]/ZIP Co de Phone Number [facility] [address] [place] [address], [place] [phone] * Thyroid stimulating hormone (03/19/2025 8:12 AM EDT) TSH 0.86 0.40 - 4.00 mcIU/mL LAB CHEMISTRY METHOD 03/19/2025 11:51 AM EDT [facility] Blood Venous blood specimen / Unknown Venipuncture / Unknown 03/19/2025 8:12 AM EDT 03/19/2025 9:04 AM EDT us Scott Starr MD LAB BLOOD ORDERABLES Final Result Performing Organization Address [facility]/ZIP Co de Phone Number [facility] [address] [place] [address], [place] [phone] * Cortisol (03/19/2025 8:12 AM EDT) Cortisol 35.1 mcg/dL LAB CHEMISTRY METHOD 03/19/2025 11:51 AM EDT [facility] Blood Venous blood specimen / Unknown Venipuncture / Unknown 03/19/2025 8:12 AM EDT 03/19/2025 9:04 AM EDT Narrative [facility] - 03/19/2025 11:51 AM EDT CORTISOL REFERENCE RANGE 8 AM SPEC: 5.0-23.0 mcg/dL 4 PM SPEC: 3.0-16.0 mcg/dL 8 PM SPEC: <5.0 mcg/dL us Scott Starr MD LAB BLOOD ORDERABLES Final Result Performing Organization Address City/[facility]/ZIP Co de Phone Number [facility] [address] [place] [address], [place] [phone] * Phosphorus (03/12/2025 7:13 AM EDT) Only the most recent of2 resultswithin the time period is included. Phosphorus 3.4 2.5 - 4.5 mg/dL LAB CHEMISTRY METHOD 03/12/2025 11:29 AM EDT [facility] Blood Venous blood specimen / Unknown Venipuncture / Unknown 03/12/2025 7:13 AM EDT 03/12/2025 10:31 AM EDT us Scott Starr MD LAB BLOOD ORDERABLES Final Result Performing Organization Address City/[facility]/ZIP Co de Phone Number [facility] [address] [place] [address], * Magnesium (03/12/2025 7:13 AM EDT) Only the most recent of2 resultswithin the time period is included. [facility] Magnesium 2.3 1.9 - 2.6 mg/dL LAB CHEMISTRY METHOD 03/12/2025 11:29 AM EDT [facility] Comment:Hemolysis present Blood Venous blood specimen / Unknown Venipuncture / Unknown 03/12/2025 7:13 AM EDT 03/12/2025 10:31 AM EDT us Scott Starr MD LAB BLOOD ORDERABLES Final Result [facility] [address] [place] [address], [place] [phone] * (ABNORMAL) Lipid panel (03/05/2016) [facility] LDL/HDL Ratio 4 0 - 4 Triglycerides 140 0 - 150 mg/dL Cholesterol 188 0 - 200 mg/dL HDL 43 >=40 mg/dL LDL Cholesterol 117(A) 0 - 100 mg/dL Blood Venous blood specimen / Unknown us Usha Nicole MD LAB BLOOD ORDERABLES Marilou l Result from Last 3 Months or Most Recently Relevant to Health Maintenance Insurance MEDICAID - [place] MEDICARE Care Teams Supervisor [employer] Relationship Specialty Start Date End Date Tyler Castillo MD [address] [place] [phone] PCP - General Internal Medicine 10/20/15
--- OUTSIDE RECORDS SUMMARY | 2025-05-23 11:18 | XMS_ITS | Encounter Summary ---
Author Organization [facility] Address [address] [place] [address] Care Team Providers Care Barge Pilot Name Role Phone Tyler Castillo MD Primary Care Provider [phone] Encounter Details Date Type Department Care Team (Late st Contact Info) Description 04/15/2025 Lab Requisition [facility] - Main Lab [address] [facility] [place] [address] Scott Starr MD [address], [place] [phone] Benign prostatic hyperplasia without lower urinary tract symptoms; Urinary tract infection, site not specified Social History Tobacco Use Types Packs/Day Years [...] Associated Diagnosis Comments COMPLETE BLOOD COUNT Routine 04/16/2025 7:09 AM EDT Benign prostatic hyperplasia without lower urinary tract symptoms Urinary tract infection, site not specified COMPREHENSIVE METABOLIC PANEL Routine 04/16/2025 7:09 AM EDT Benign prostatic hyperplasia without lower urinary tract symptoms Urinary tract infection, site not specified documented in this encounter Results * (ABNORMAL) Comprehensive metabolic panel (04/16/2025 7:09 AM EDT) Sodium 139 133 - 145 mmol/L LAB CHEMISTRY METHOD 04/16/2025 12:49 PM EDT [facility] Potassium 4.4 3.5 - 5.5 mmol/L LAB CHEMISTRY METHOD 04/16/2025 12:49 PM [facility] Chloride 105 96 - 110 mmol/L LAB CHEMISTRY METHOD 04/16/2025 12:49 PM [facility] CO2 29 21 - 32 mmol/L LAB CHEMISTRY METHOD 04/16/2025 12:49 PM [facility] Anion Gap 5 3 - 11 LAB CHEMISTRY METHOD 04/16/2025 12:49 PM [facility] Glucose 85 70 - 100 mg/dL LAB CHEMISTRY METHOD 04/16/2025 12:49 PM [facility] BUN 21 5 - 25 mg/dL LAB CHEMISTRY METHOD 04/16/2025 12:49 PM [facility] Creatinine 1.10 0.70 - 1.30 mg/dL LAB CHEMISTRY METHOD 04/16/2025 12:49 PM [facility] eGFR 70 >=60 mL/min/1. 73m2 LAB CHEMISTRY METHOD 04/16/2025 12:49 PM [facility] Comment:Calculation based on the Chronic Kidney Disease Epidemiology Collaboration (CKD-EPI) equation refit without adjustment for race. BUN/Creatinine Ratio 19.1 LAB CHEMISTRY METHOD 04/16/2025 12:49 PM [facility] Calcium 8.5 8.5 - 10.5 mg/dL LAB CHEMISTRY METHOD 04/16/2025 12:49 PM [facility] AST (SGOT) 19 10 - 42 unit/L LAB CHEMISTRY METHOD 04/16/2025 12:49 PM [facility] ALT (SGPT) 29 10 - 60 unit/L LAB CHEMISTRY METHOD 04/16/2025 12:49 PM [facility] Alkaline Phosphatase 78 42 - 121 unit/L LAB CHEMISTRY METHOD 04/16/2025 12:49 PM [facility] Total Protein 6.6 6.0 - 8.0 g/dL LAB CHEMISTRY METHOD 04/16/2025 12:49 PM EDT [facility] Albumin 2.5(L) 3.2 - 5.0 g/dL LAB CHEMISTRY METHOD 04/16/2025 12:49 PM EDT [facility] Total Bilirubin 0.3 0.0 - 1.4 mg/dL LAB CHEMISTRY METHOD 04/16/2025 12:49 PM EDT [facility] Blood Venous blood specimen / Unknown Venipuncture / Unknown 04/16/2025 7:09 AM EDT 04/16/2025 8:53 AM EDT Scott Starr MD LAB BLOOD ORDERABLES Final Result [facility] [address] [place] [address], * (ABNORMAL) Complete blood count (04/16/2025 7:09 AM EDT) WBC 13.3(H) 4.8 - 10.8 K/mcL LAB HEMETOLOGY METHOD 04/16/2025 9:35 AM [facility] RBC 4.10(L) 4.50 - 5.50 M/mcL LAB HEMETOLOGY METHOD 04/16/2025 9:35 AM EDT [facility] Hemoglobin 12.0(L) 13.5 - 17.5 g/dL LAB HEMETOLOGY METHOD 04/16/2025 9:35 AM T [facility] Hematocrit 38.2(L) 42.0 - 54.0 % LAB HEMETOLOGY METHOD 04/16/2025 9:35 AM [facility] MCV 92.5 79.0 - 98.0 FL LAB HEMETOLOGY METHOD 04/16/2025 9:35 AM EDT [facility] MCH 29.1 27.0 - 32.0 pcg LAB HEMETOLOGY METHOD 04/16/2025 9:35 AM EDT [facility] MCHC 31.4(L) 32.0 - 37.0 g/dL LAB HEMETOLOGY METHOD 04/16/2025 9:35 AM EDT [facility] RDW 14.0 11.0 - 15.0 % LAB HEMETOLOGY METHOD 04/16/2025 9:35 AM EDT [facility] Platelets 488(H) 130 - 400 K/mcL LAB HEMETOLOGY METHOD 04/16/2025 9:35 AM EDT [facility] MPV 8.7 7.0 - 11.0 FL LAB HEMETOLOGY METHOD 04/16/2025 9:35 AM EDT [facility] NRBC 0.0 <1.0 % LAB HEMETOLOGY METHOD 04/16/2025 9:35 AM EDT [facility] NRBC Absolute 0.00 <0.10 K/mcL LAB HEMETOLOGY METHOD 04/16/2025 9:35 AM EDT [facility] Blood Venous blood specimen / Unknown Venipuncture / Unknown 04/16/2025 7:09 AM EDT 04/16/2025 8:53 AM EDT Scott Starr MD LAB BLOOD ORDERABLES Final Result [facility] [address] [place] [address], documented in this encounter Visit Diagnoses Diagnosis Benign prostatic hyperplasia without lower urinary tract symptoms Urinary tract infection, site not specified documented in this encounter Care Teams Barge Pilot Relationship Specialty Start Date End Date Tyler Castillo MD [address] [place] [id number] PCP - General Internal Medicine 10/20/15 documented as of this encounter
--- OUTSIDE RECORDS SUMMARY | 2025-05-23 11:18 | XMS_ITS | Encounter Summary ---
Author Organization [facility] Address [address] [place] [address] Care Team Providers Care [employer] Open Stack Administrator Name Role Phone Tyler Castillo MD Primary Care Provider [phone] Encounter Details Date Type Department Care Team (Late st Contact Info) Description 03/11/2025 Lab Requisition [facility] - Main Lab [address] [facility] [place] [address] Scott Starr MD [address] [place], [place] [phone] Anemia, unspecified Social History Tobacco Use Types [...] Associated Diagnosis Comments COMPLETE BLOOD COUNT Routine 03/12/2025 7:13 AM EDT Anemia, unspecified PHOSPHORUS Routine 03/12/2025 7:13 AM EDT Anemia, unspecified MAGNESIUM Routine 03/12/2025 7:13 AM EDT Anemia, unspecified BASIC METABOLIC PANEL Routine 03/12/2025 7:13 AM EDT Anemia, unspecified documented in this encounter Results * Phosphorus (03/12/2025 7:13 AM EDT) Phosphorus 3.4 2.5 - 4.5 mg/dL LAB CHEMISTRY METHOD 03/12/2025 11:29 AM EDT [facility] Blood Venous blood specimen / Unknown Venipuncture / Unknown 03/12/2025 7:13 AM EDT 03/12/2025 10:31 AM EDT us Scott Starr MD LAB BLOOD ORDERABLES Final Result Performing Organization Address [facility]/ZIP Co de Phone Number [facility] [address] [place] [address], [place] [phone] * Magnesium (03/12/2025 7:13 AM EDT) Pathologist [facility] Magnesium 2.3 1.9 - 2.6 mg/dL LAB CHEMISTRY METHOD 03/12/2025 11:29 AM EDT [facility] Comment:Hemolysis present Blood Venous blood specimen / Unknown Venipuncture / Unknown 03/12/2025 7:13 AM EDT 03/12/2025 10:31 AM EDT us Scott Starr MD LAB BLOOD ORDERABLES Final Result Performing Organization Address [facility] de Phone Number [facility] [address] [place] [address], [place] [phone] * Basic metabolic panel (03/12/2025 7:13 AM EDT) Sodium 136 133 - 145 mmol/L LAB CHEMISTRY METHOD 03/12/2025 11:29 AM EDT [facility] Potassium 4.7 3.5 - 5.5 mmol/L LAB CHEMISTRY METHOD 03/12/2025 11:29 AM EDT [facility] Comment:Hemolysis present Chloride 104 96 - 110 mmol/L LAB CHEMISTRY METHOD 03/12/2025 11:29 AM EDT [facility] CO2 26 21 - 32 mmol/L LAB CHEMISTRY METHOD 03/12/2025 11:29 AM EDT [facility] Anion Gap 6 3 - 11 LAB CHEMISTRY METHOD 03/12/2025 11:29 AM [facility] Glucose 72 70 - 100 mg/dL LAB CHEMISTRY METHOD 03/12/2025 11:29 AM [facility] BUN 19 5 - 25 mg/dL LAB CHEMISTRY METHOD 03/12/2025 11:29 AM [facility] Creatinine 1.02 0.70 - 1.30 mg/dL LAB CHEMISTRY METHOD 03/12/2025 11:29 AM [facility] eGFR 76 >=60 mL/min/1. 73m2 LAB CHEMISTRY METHOD 03/12/2025 11:29 AM [facility] Comment:Calculation based on the Chronic Kidney Disease Epidemiology Collaboration (CKD-EPI) equation refit without adjustment for race. BUN/Creatinine Ratio 18.6 LAB CHEMISTRY METHOD 03/12/2025 11:29 AM [facility] Calcium 8.9 8.5 - 10.5 mg/dL LAB CHEMISTRY METHOD 03/12/2025 11:29 AM [facility] Blood Venous blood specimen / Unknown Venipuncture / Unknown 03/12/2025 7:13 AM EDT 03/12/2025 10:31 AM EDT Scott Starr MD LAB BLOOD ORDERABLES Final Result [facility] [address] [place] [address], * Complete blood count (03/12/2025 7:13 AM EDT) WBC 9.0 4.8 - 10.8 K/mcL LAB HEMETOLOGY METHOD 03/12/2025 11:08 AM EDT [facility] RBC 4.70 4.50 - 5.50 M/mcL LAB HEMETOLOGY METHOD 03/12/2025 11:08 AM [facility] Hemoglobin 14.1 13.5 - 17.5 g/dL LAB HEMETOLOGY METHOD 03/12/2025 11:08 AM [facility] Hematocrit 43.1 42.0 - 54.0 % LAB HEMETOLOGY METHOD 03/12/2025 11:08 AM [facility] MCV 92.3 79.0 - 98.0 FL LAB HEMETOLOGY METHOD 03/12/2025 11:08 AM [facility] MCH 30.2 27.0 - 32.0 pcg LAB HEMETOLOGY METHOD 03/12/2025 11:08 AM [facility] MCHC 32.7 32.0 - 37.0 g/dL LAB HEMETOLOGY METHOD 03/12/2025 11:08 AM [facility] RDW 13.4 11.0 - 15.0 % LAB HEMETOLOGY METHOD 03/12/2025 11:08 AM [facility] Platelets 339 130 - 400 K/mcL LAB HEMETOLOGY METHOD 03/12/2025 11:08 AM [facility] MPV 9.2 7.0 - 11.0 FL LAB HEMETOLOGY METHOD 03/12/2025 11:08 AM [facility] NRBC 0.0 <1.0 % LAB HEMETOLOGY METHOD 03/12/2025 11:08 AM [facility] NRBC Absolute 0.00 <0.10 K/mcL LAB HEMETOLOGY METHOD 03/12/2025 11:08 AM [facility] Blood Venous blood specimen / Unknown Venipuncture / Unknown 03/12/2025 7:13 AM EDT 03/12/2025 10:31 AM EDT Scott Starr MD LAB BLOOD ORDERABLES Final Result [facility] [address] [place] [address], documented in this encounter Visit Diagnoses Diagnosis Anemia, unspecified documented in this encounter Additional Health Concerns Infection Onset Date Last Indicated Resolved Time C. difficile Rule-Out 04/04/2025 04/04/20252024 12:46 PM EDT documented as of this encounter Care Teams [employer] Open [employer] Administrator Relationship Specialty Start Date End Date Tyler Castillo MD [address] [place] [address] PCP - General Internal Medicine 10/20/15 documented as of this encounter
== END 2025-05-23 11:40 | disposition home or self-care (01) ==
LOC: HO.HUSH 09:39
PROVIDERS: PCP Internal Medicine Medical Oncology; Visit Provider Urology
DX: N40.1 Benign prostatic hyperplasia with lower urinary tract symptoms (principal); R33.8 Other retention of urine; N39.0 Urinary tract infection, site not specified
CPT/HCPCS: 52000; 99214

== ENCOUNTER 2025-05-23 09:38 | Outpatient (REF) | payer MEDICARE, MEDICAID, SELFPAY | END 2025-05-23 09:39 | disposition home or self-care (01) | LOC: HO.LNP 09:38 | PROVIDERS: PCP Internal Medicine Medical Oncology; Visit Provider Urology | DX: N40.1 Benign prostatic hyperplasia with lower urinary tract symptoms (principal); N39.0 Urinary tract infection, site not specified; R33.8 Other retention of urine | CPT/HCPCS: 52000; 81003; 87086; 87088; 87186; 99212 ==

== ENCOUNTER 2025-06-03 15:37 | Outpatient (AMB) | payer MEDICARE, MEDICAID, SELFPAY ==
--- OUTSIDE RECORDS SUMMARY | 2025-04-26 10:30 | XMS_ITS ---
Author Organization Thaddeus Oreilly III, MD Address [address] [place] [address] [place] [address] Care Team Providers Care Wood Pole Treater Name Role Phone Dr. Thaddeus Oreilly III Primary Care Provider [phone] Allergies Allergen (clinical drug ingredient) Drug/Non Drug [...] Date Provider Diagnosis Thaddeus Oreilly III, MD [address] [place] [address] [place] [address] 04/26/2025 Thaddeus Oreilly Chronic obstructive pulmonary disease, unspecified COPD type J44.9 ; Urine retention R33.9 ; Former smoker Z87.891 ; Overweight (BMI 25.0-29.9) E66.3 and Benign prostatic hypertrophy N40.0 Assessments Encounter Date Diagnosis (ICD Code) Assessment Notes Treatment Notes Treatment Clinical Notes 04/26/2025 Chronic obstructive pulmonary disease, unspecified COPD type (ICD-10 - J44.9) He will continue to see the transplant coordinator regularly. The 6 mm pulmonary nodule will be followed carefully. He is no longer smoking. He will exercise regularly. He will continue to use his nebulizer and his new inhaler. 04/26/2025 Urine retention (ICD-10 - R33.9) He was acutely ill and was taken to the emergency room at [facility] across the street from my office [...] CENTER EVERY DAY 30 MINUTES BEFORE BREAKFAST Next Appt Details Follow Up: 3 Weeks, Reason: ov Provider Name:Thaddeus Ortizne , 06/10/2025 03:15:00 PM, [address] [place] [address] [address], [place], [address], Provider Name:Thaddeus Zavala Denilson , 11/06/2025 03:00:00 PM, [address] [place] [address] [address], [place], [address], Progress Notes * CURT WOODSDOB:1950 (74 yo M)Acc No.[id number]:04/26/2025 Patient: Asa BÁRBARACURT Provider: Roddy Oreilly MD :1950 A ge:74 Y S ex:Male Date:04/26/2025 Address:[address] [place] [phone] Subjective: * Chief Complaints: * B enign prostatic hypertrophyHospitalization February 22, 2025 for urine retentionGERDCOPD * HPI: C OVID-19 Screening: Taina zavala was admitted to [facility] from February 22 [place] February 28, 2025 [...] Findings: Tobacco non-user E x-cigarette smoker H e was born and raised in [facility]. 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 * Medications: T akingVentolin HFA 108 (90 [...] Blood Small (1+) A Negative - Specific [place] - Urine 1.020 1.005-1.025 - Urine Protein [...] 1.0 - mg/dL?Bilirubin Direct0.30.0-0.5 - mg/dL?Aspartate Amino Sbtlbxinnjc660-97 - U/L?Alanine Khirpspqukjkxyxs676-11 - U/L?Total Protein7.46.5-8.0 - g/dL?Albumin Level4.33.5-5.0 - g/dL?Alkaline Lmudulfnszy9690-331 - U/L ???Lab:Blood Culture (First) (Order Date [...] was taken to the emergency room at [facility] across the street from my office [...] otes :He will continue to see the transplant coordinator regularly. The 6 mm pulmonary nodule [...] true * Provider: Roddy Oreilly MD Date: 04/26/2025 Generated for Hayden wiley/Shawn/Deshawnitting on: 0 06/03/2025 05:41 PM EDT History and Physical Notes * [...]
--- OUTSIDE RECORDS SUMMARY | 2025-04-30 11:40 | XMS_ITS ---
Author Organization Thaddeus Oreilly III, MD Address [address] [place] [address] [address] [place] [address] Care Team Providers Care Electric Organ Checker Name Role Phone Dr. Thaddeus Oreilly III [...] Omeprazole 20 MG TAKE 1 CAPSULE BY [facility] EVERY DAY 30 MINUTES [...] Date Provider Diagnosis Thaddeus Oreilly III, MD [address] [place] [address] [address] [place] [address] 04/30/2025 Thaddeus Oreilly Plan Of Treatment Next Appt Details Provider Name:Thaddeus Oreilly , 06/10/2025 03:15:00 PM, [address] [place] [address] [address], [place], [address], Provider Name:Thaddeus Oreilly , 11/06/2025 03:00:00 PM, [address] [place] [address] [address], [place], [address], Progress Notes * CURT WOODSDOB:1950 (74 yo M)Acc No.[id number]:04/30/2025 Patient: CURT BERRY :1950 A ge:74 Y S ex:Male Address:[address] [place] [address] [place], [address] Subjective: * Chief Complaints: * R efills [...] Date: Generated for Hayden wiley/Shawn/Brice on: 0 06/03/2025 05:40 PM EDT
--- OUTSIDE RECORDS SUMMARY | 2025-05-01 12:48 | XMS_ITS ---
Author Organization Thaddeus Oreilly III, MD Address [address] [place] [address] [place] [address] Care Team Providers Care Street Light Servicer Helper Name Role Phone Dr. Thaddeus Oreilly III Primary Care Provider [phone] Medications Medication SIG (Take, Route, Frequency, Duration) [...] Provider Diagnosis Thaddeus Oreilly III, MD [address] [place] [address] [place] [address] 05/01/2025 Thaddeus Oreilly Plan Of Treatment Medication Medication Name Sig Start Date Stop Date Notes Alfuzosin HCl ER 10 MG 1 tablet Orally O nce a day for 30 days 05/01/2025 04/26/2026 Finasteride 5 MG 1 tablet Orally Once a day for 30 days 05/01/2025 04/26/2026 Next Appt Details Provider Name:Thaddeus Oreilly , 06/10/2025 03:15:00 PM, [address] [place] [address] [place], [address], Provider Name:Thaddeus Oreilly , 11/06/2025 03:00:00 PM, [address] [place] [address] [place], [address], Progress Notes * CURT WOODSDOB:1950 (74 yo M)Acc No.[id number]:05/01/2025 Patient: CURT BERRY :1950 A ge:74 Y S ex:Male Address:[address] [place] [address], [phone] * Refills Start Finasteride Tablet, 5 MG, Orally, 30 Tablet, 1 tablet, Once a day, 30 days, Refills=11 Start Alfuzosin HCl ER Tablet Extended Release 24 Hour, 10 MG, Orally, 30 Tablet, 1 tablet, Once a day, 30 days, Refills=11 * true * Date: Generated for Hayden wiley/Shawn/Deshawnitting on: 0 06/03/2025 05:40 PM EDT
--- OUTSIDE RECORDS SUMMARY | 2025-05-13 13:00 | XMS_ITS ---
Author Organization Thaddeus Oreilly III, MD Address [address] [place] [address] [address] Yakelin [place] [phone] Care Team Providers Care Vice President Of Procurement Name Role Phone Dr. Thaddeus Oreilly III Primary Care Provider [phone] Allergies Allergen (clinical drug ingredient) Drug/Non Drug [...] Omeprazole 20 MG TAKE 1 CAPSULE BY [facility] EVERY DAY 30 MINUTES BEFORE BREAKFAST Active [...] Date Provider Diagnosis Thaddeus Oreilly III, MD [address] [place] [address] [place] [phone] 05/13/2025 Thaddeus Oreilly Chronic obstructive pulmonary disease, [...] Omeprazole 20 MG TAKE 1 CAPSULE BY [facility] EVERY DAY 30 MINUTES BEFORE BREAKFAST Roflumilast [...] Provider Name:Thaddeus Oreilly , 06/10/2025 03:15:00 PM, [address] [place] [address] [address], [place], [phone], Provider Name:Thaddeus Oreilly , 11/06/2025 03:00:00 PM, [address] [place] [address] [address], [place], [phone], Progress Notes * CURT WOODSDOB:1950 (74 yo M)Acc No.[id number]:05/13/2025 Progress Notes Patient: CURT BERRY Provider: Roddy Oreilly MD :1950 A ge:74 Y S ex:Male Date:05/13/2025 Address:[address] [place], [place] [phone] Subjective: * Chief Complaints: * 1 . [...] H e was born and raised in [facility]. 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 * Medications: T aking Tylenol 325 MG [...] Examination: G eneral Examination: GENERAL APPEARANCE: p arlene, well nourished, well developed, in no acute [...] Pending * Provider: Roddy Oreilly MD Date: 05/13/2025 Generated for Hayden wiley/Shawn/Deshawnitting on: 06/03/2025 05:41 PM EDT History and Physical [...]
--- OUTSIDE RECORDS SUMMARY | 2025-05-21 11:00 | XMS_ITS ---
Author Organization Thaddeus Oreilly III, MD Address [address] [place] [address] [place] [address] Care Team Providers Care Driveway Attendant Name Role Phone Dr. Thaddeus Oreilly III [...] 20 MG TAKE 1 CAPSULE BY [facility] EVERY DAY 30 MINUTES BEFORE BREAKFAST [...] Date Provider Diagnosis Thaddeus Oreilly III, MD [address] [place] [address] [place] [address] 05/21/2025 Thaddeus Oreilly Benign prostatic hypertrophy N40.0 [...] was taken to the emergency room at [facility] across the street from my office [...] J44.9) He will continue to see the auto mechanic regularly. The 6 mm pulmonary nodule will [...] 20 MG TAKE 1 CAPSULE BY [facility] EVERY DAY 30 MINUTES BEFORE BREAKFAST Ventolin [...] Weeks, Reason: OV Provider Name:Thaddeus Oreilly , 06/10/2025 03:15:00 PM, [address] [place] [address] [address], [place], [address], Provider Name:Thaddeus Oreilly , 11/06/2025 03:00:00 PM, [address] [place] [address] [address], [place], [address], Progress Notes * CURT WOODSDOB:1950 (74 yo M)Acc No.[id number]:05/21/2025 Progress Notes Patient: CURT BERRY Provider: Roddy Oreilly MD :1950 A ge:74 Y S ex:Male Date:05/21/2025 Address:[address] [place], [place] [id number] Subjective: * Chief Complaints: * G erdCopdBenign prostatic hypertrophyOverweightUrine retention, Mojica catheter in place * HPI: C OVID-19 Screening: He returns to the office for medical management.In February of 2025 he presented to the office with severe urinary retention and was admitted to the hospital. He was discharged at the end of February of this matter and has been in rrehabilitation in [place]. He has been home for 2 weeks. He is receiving home services from [facility]. He continues to have an indwelling [...] Taina zavala was born and raised in [facility]. 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 * Medications: T akingFinasteride 5 MG Tablet [...] 1.0 - mg/dL?Bilirubin Direct0.30.0-0.5 - mg/dL?Aspartate Amino Wdecfkirjtz316-88 - U/L?Alanine Gckifgkfnyxxqlar843-30 - U/L?Total Protein7.46.5-8.0 - g/dL?Albumin Level4.33.5-5.0 - g/dL?Alkaline Jceccjrchxt5856-320 - U/L ???Lab:Blood Culture (Second) (Order Date [...] UANegativeNegative - mg/dL?Urine BloodSmall (1+)ANegative - ?Specific [place] - Urine1.0201.005-1.025 -?Urine ProteinNegative Neg-Trace - mg/dL?Urine KetonesTraceNegative - mg/dL?Nitrite Urine NegativeNegative -?Leukocyte Esterase UrineModerate (2+)ANegative - ?RBC [place]1-39H4-9 - /HPF?WBC Mczhc05-47E9-6 - /HPF ?Squamous Epithelial Cell Urine0-20-2 - [...] was taken to the emergency room at [facility] across the street from my office [...] otes :He will continue to see the auto mechanic regularly. The 6 mm pulmonary nodule will [...] Date: 05/21/2025 Generated for Hayden wiley/Shawn/Deshawnitting on: 06/03/2025 05:40 PM EDT History and Physical Notes * [...]
[2025-06-03 15:40] VITALS: BP 128/74; PULSE 96; O2SAT 96; BMI 25.2
--- NOTE | 2025-06-03 15:40 | A.OFFVIS_ITS ---
Vital Signs 06/03/25 15:40 Height 6 ft 2 in Weight 196 lb 3.382 oz BMI 25.2 BP 128/74 Blood Pressure Location Lt brachial Position Sitting Pulse 96 Pulse Source Pulse Oximeter Pulse Oximetry (%) 96 Oxygen Delivery Method Room Air Intake Visit Reasons: copd Smoking Pipes Cleaner Required: No Accompanied by: Self / Same As Patient Allergies No Known Allergies Allergy (Verified 06/03/25 15:42) HPI Comments Details: The patient is a 74 year-old gentleman known history of tobacco dependency complaining of worsening shortness of breath. Apparently patient was a lifelong smoker although he quit about 9 years ago. He quit back down after developing a COPD exacerbation due to a viral syndrome. He has not smoking recess. He has been complaining of worsening dyspnea on exertion moderate severity. 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 He is also having hard time going up a flight of stairs. Therefore he underwent a chest x-ray demonstrating hyperinflated lungs consistent with COPD. He also underwent pulmonary function studies demonstrating severe obstructive ventilatory defect consistent with severe COPD. Also has a moderate diffusion impairment. 09/22/2020 the patient is here for pulmonary follow-up visit. The patient overall feels little better with the medication. He has been using the Breo at nighttime in addition to using the rescue inhaler. He got a prescription for the albuterol generic in he does not feel like it works just as good as the ventilator. She rather have the ventilator HFA. I will requested if he can get it if not he knows that he will have to try the read 1. in the meantime he has been taking the Breo at nighttime he is going to change due to daytime and can make sure a rinses mouth well. He complains of chest congestion and difficulty to expectorating. This consistent with his chronic bronchitis. At this point will try to minimize prednisone. He will be a great candidate for Daliresp. Therefore he is going to started he will started 3 times a week and then increases slowly as he is tolerating the GI symptoms subside. If the symptoms do not subside he is to call and also on the lower dose. Patient is to continue using his respiratory therapy. We did review his lung cancer screening CT scan back in July 2020 which demonstrated a 7 mm pulmonary nodule that will need follow-up. He was read as a rads 2 due to the fact that appears to be trying gland shape and more consistent with a lymph node. 03/16/2021 the patient is here for pulmonary follow-up visit. Overall the patient has been doing better on scarring respiratory regimen. The Breo inhaler has been helpful although he does complaint of throat irritation he has been tolerating the Daliresp. Still complaining of getting winded specially with activity. [id number] severity. Does get better with rest. On examination he still wheezy. Therefore will go ahead and had Spiriva to his regimen hoping to maximize his respiratory therapy. In the meantime the patient has not had any additional imaging since back in July. He is scheduled to undergo a repeat CT scan in July 2021. We initially spoken about doing earlier but at this point which is wait to done. Will going to continue with the lung cancer screening program. If the patient develops in other significant symptoms he is call the office and we can always reassess the earlier time. In the meantime will follow up after his CT scan. 09/21/2021 the patient is here for pulmonary follow-up visit. He is complaining of worsening cough typically the morning. He also has shortness of breath and chest tightness. He has been using his inhalers regularly which include Breo and Spiriva. He also has a short-acting beta agonist. She was prescribed Daliresp but does not appear to using regularly. On examination today has a lot of wheezing. The patient was given a DuoNeb treatment with partial improvement of his symptoms. I will treat him for COPD exacerbation. The patient will benefit from nebulizer at home. O providing 1 through her local [employer] company. The patient has not had his low-dose CT scan his to be scheduled for the 2021. I did reach out to the lung cancer screening program in order for him to be scheduled. 11/16/2021 the patient is here for a pulmonary follow-up visit. His breathing still an issue. Still having significant wheezing. We placed him on DuoNeb but now complaining of a dry mouth. Therefore he has been able to do them as often. I will switch him over to regular albuterol in order for him to have less adverse effects. In addition to that will switch his Breo to Trelegy with hopeful maximizing her respiratory therapy. He continues to tolerate the Daliresp. He did have a CT scan of the chest that was personally by me demonstrating stable pulmonary nodules which is reassuring. It appears however that she does have some kidney stones that her basically asymptomatic at this time. The patient will follow up with his primary care provider regarding this issue. He is concerned because his grandmother had complications from kidney stones. 11/26/2024 the patient is here for pulmonary follow-up visit. Overall the patient has been doing well. Has been using his MICHELLE neb and HFA regularly through out the day. No longer using a maintenace inhaler. Seems to prefer the nebulizer. He continues on the Daliresp. Continues to have some shortness breath with activity. Has not had his lung cancer screening sinse 2022. But now smoking free >15 yrs so he aged out of the program. He continues to have some reflux symptoms. He responds well to the omeprazole. We did talk about the importance of the reflux diet. Otherwise patient is without any other complaints. 06/03/2025 the patient is here for pulmonary follow-up visit. Overall he is doing better. He was hospitalized and subsequently went to rehab for about 2 months. She finally recovered he is still performing physical therapy at home. He is getting stronger and back on his feet. He had issues with his prostate. Respiratory ny the patient has been doing okay. He has been using the nebulizer. But it seems like the problem is mainly urinary retention and he has a Mojica catheter in place. Therefore explained to him that we have to stop the ipratropium and his nebulizers that potentially could be contributing to the urinary retention in addition to his other issues. Therefore, will go ahead and stop the nebulizer treatments and start him on inhalers. He can always use albuterol via the nebulizer if needed as long as it does not have any long- acting or short-acting muscarinic antagonist. While in the hospital he did have a CT scan of the abdomen demonstrating some minimal atelectasis at the lung bases. [facility] Medical History Elevated PSA measurement Pulmonary nodule Personal history of nicotine dependence Dyspnea COPD (chronic obstructive pulmonary disease) Surgical History Hx of appendectomy Social History Household Members: None Housing: House Patient Tobacco Use Status: Former Tobacco user Tobacco use type: Cigarette and Cigar Years Smoked: Since 12 years old Second Hand Smoke Exposure: No service: No Review of Systems Const Denies night sweats ENT Denies change in voice, Denies lip swelling, Denies mouth pain, Reports nasal congestion, Reports nasal discharge and Denies tongue swelling Card Denies chest pain and Reports dyspnea on exertion Resp Reports cough, Reports dyspnea on exertion and Reports wheezing GI Denies abdominal pain Reports as per HPI, Reports oliguria and Reports difficulty urinating Musc Denies no additional complaints Neuro Denies Neuro-related abnormal movements Psych Denies no additional complaints Anand/Lymph Denies easy bleeding and Denies lymphadenopathy Aller/Immun Denies lip swelling, Denies tongue swelling and Reports wheezing Physical Exam Vital Signs: Last Vital Signs Pulse 96 06/03/25 15:40 BP 128/74 06/03/25 15:40 Pulse Ox 96 06/03/25 15:40 Oxygen Delivery Method Room Air 06/03/25 15:40 BMI result Body Mass Index 25.2 Const General: alert Neck Neck: Yes normal visual inspection, Yes full ROM and Yes no lymphadenopathy Chest Chest palpation & inspection: normal inspection of the chest Resp Effort & Inspection: prolonged expiratory phase Auscultation: wheezes and diminished lung sounds Cardio Rate: regular rate Rhythm: regular rhythm Heart sounds: S1 normal heart sound present and S2 normal heart sound present GI Palpation (GI): Soft to palpation and nontender Auscultation: normal bowel sounds Skin General skin exam: rashes and/or lesions noted Assessment & Plan Assessment & Plan (1) Pulmonary nodule: Code(s): R91.1 - Solitary pulmonary nodule Category: Medical (2) COPD (chronic obstructive pulmonary disease): Code(s): J44.9 - Chronic obstructive pulmonary disease, unspecified Category: Medical Qualifiers: COPD type: COPD with acute exacerbation Qualified Code(s): J44.1 - Chronic obstructive pulmonary disease with (acute) exacerbation (3) Dyspnea: Comment: Primarily due to airway obstruction Code(s): R06.00 - Dyspnea, unspecified Category: Medical Qualifiers: Dyspnea type: dyspnea on exertion Qualified Code(s): R06.00 - Dyspnea, unspecified Plan stop Budesonide BID stop Duoneb BID start Wixela short-acting beta agonist as needed via nebulizer continue Singulair Stopped Daliresp continue albuterol twice a day reflux diet PPI consider pulmonary rehab once better F/U 4-6 Medications: New fluticasone propion-salmeterol 250-50 mcg/dose (Wixela Inhub) 1 inh inhalation Q12H 60 ea 11RF 30 days albuterol sulfate 2.5 mg (3 mL) inhalation Q4H PRN 360 mL 11RF shortness of breath or wheezing 30 days Discontinued budesonide Discontinued Reason: Duplicate 0.5 mg (2 mL) inhalation BID 30 days 120 mL 11RF J44.9 - Chronic obstructive pulmonary disease, unspecified ipratropium-albuterol 0.5 mg-3 mg(2.5 mg base)/3 mL Discontinued Reason: Doctor's Order 3 mL inhalation BID 30 days 180 mL 11RF J44.9 - Chronic obstructive pulmonary disease, unspecified Coding Level of Care Code Est Pt Level 4 (37355) Complex EM visit Add On G2211 Diagnoses Pulmonary nodule R91.1 Chronic obstructive pulmonary disease with acute exacerbation J44.1 COPD type: COPD with acute exacerbation Dyspnea on exertion R06.00 Dyspnea type: dyspnea on exertion
--- OUTSIDE RECORDS SUMMARY | 2025-06-03 17:40 | XMS_ITS | Encounter Summary ---
Author Organization [facility] Address [address] [place] [address] Care Team Providers Care Water Use Inspector Name Role Phone Tyler Castillo MD Primary Care Provider [phone] Encounter Details Date Type Department Care Team (Late st Contact Info) Description 03/18/2025 Lab Requisition [facility] - Main Lab [address] [facility] [place] [address] Scott Starr MD [address] [employer], [place] [id number] Anemia, unspecified Social History Tobacco Use Types [...] Hold for add-ons. 03/19/2025 11:01 AM EDT [facility] Comment:Auto resulted. Blood Venous blood specimen / Unknown Venipuncture / Unknown 03/19/2025 8:12 AM EDT 03/19/2025 9:04 AM EDT us Scott Starr MD LAB BLOOD ORDERABLES Final Result [facility] [address] [place] [address], [place] [phone] * SST tube (03/19/2025 8:12 AM EDT) Extra Tube Hold for add-ons. 03/19/2025 11:01 AM EDT [facility] Comment:Auto resulted. Blood Venous blood specimen / Unknown Venipuncture / Unknown 03/19/2025 8:12 AM EDT 03/19/2025 9:04 AM EDT us Scott Starr MD LAB BLOOD ORDERABLES Final Result [facility] [address] [place] [address], [place] [phone] * Cortisol (03/19/2025 8:12 AM EDT) Cortisol 35.1 mcg/dL LAB CHEMISTRY METHOD 03/19/2025 11:51 AM EDT [facility] Blood Venous blood specimen / Unknown Venipuncture / Unknown 03/19/2025 8:12 AM EDT 03/19/2025 9:04 AM EDT Narrative [facility] - 03/19/2025 11:51 AM EDT CORTISOL REFERENCE RANGE 8 AM SPEC: 5.0-23.0 mcg/dL 4 PM SPEC: 3.0-16.0 mcg/dL 8 PM SPEC: <5.0 mcg/dL us Scott Starr MD LAB BLOOD ORDERABLES Final Result Performing Organization Address [facility]/ZIP Co de Phone Number [facility] [address] [place] [address], [place] [phone] * Thyroid stimulating hormone (03/19/2025 8:12 AM EDT) Pathologist [facility] TSH 0.86 0.40 - 4.00 mcIU/mL LAB CHEMISTRY METHOD 03/19/2025 11:51 AM EDT [facility] Blood Venous blood specimen / Unknown Venipuncture / Unknown 03/19/2025 8:12 AM EDT 03/19/2025 9:04 AM EDT us Scott Starr MD LAB BLOOD ORDERABLES Final Result Performing Organization Address [facility] Co de Phone Number [facility] [address] [place] [address], [place] [phone] * Basic metabolic panel (03/19/2025 8:12 AM EDT) Pathologist [facility] Sodium 137 133 - 145 mmol/L LAB CHEMISTRY METHOD 03/19/2025 10:43 AM EDT [facility] Potassium 4.5 3.5 - 5.5 mmol/L LAB CHEMISTRY METHOD 03/19/2025 10:43 AM EDT [facility] Chloride 105 96 - 110 mmol/L LAB CHEMISTRY METHOD 03/19/2025 10:43 AM EDT [facility] CO2 23 21 - 32 mmol/L LAB CHEMISTRY METHOD 03/19/2025 10:43 AM EDT [facility] Anion Gap 9 3 - 11 LAB CHEMISTRY METHOD 03/19/2025 10:43 AM T [facility] Glucose 94 70 - 100 mg/dL LAB CHEMISTRY METHOD 03/19/2025 10:43 AM [facility] BUN 18 5 - 25 mg/dL LAB CHEMISTRY METHOD 03/19/2025 10:43 AM [facility] Creatinine 1.10 0.70 - 1.30 mg/dL LAB CHEMISTRY METHOD 03/19/2025 10:43 AM T [facility] eGFR 70 >=60 mL/min/1. 73m2 [...] Starr MD LAB BLOOD ORDERABLES Final Result [facility] [address] [place] [address], * Complete blood count (03/19/2025 8:12 AM EDT) WBC 10.7 4.8 - 10.8 K/mcL LAB HEMETOLOGY METHOD 03/19/2025 9:33 AM EDT [facility] RBC 5.10 4.50 - 5.50 M/mcL LAB HEMETOLOGY METHOD 03/19/2025 9:33 AM EDT [facility] Hemoglobin 15.1 13.5 - 17.5 g/dL LAB HEMETOLOGY METHOD 03/19/2025 9:33 AM EDT [facility] Hematocrit 46.1 42.0 - 54.0 % LAB HEMETOLOGY METHOD 03/19/2025 9:33 AM EDT [facility] MCV 91.3 79.0 - 98.0 FL LAB HEMETOLOGY METHOD 03/19/2025 9:33 AM EDT [facility] MCH 29.9 27.0 - 32.0 pcg LAB HEMETOLOGY METHOD 03/19/2025 9:33 AM EDT [facility] MCHC 32.8 32.0 - 37.0 g/dL LAB HEMETOLOGY METHOD 03/19/2025 9:33 AM EDT [facility] RDW 13.4 11.0 - 15.0 % LAB HEMETOLOGY METHOD 03/19/2025 9:33 AM EDT [facility] Platelets 400 130 - 400 K/mcL LAB HEMETOLOGY METHOD 03/19/2025 9:33 AM EDT [facility] MPV 9.1 7.0 - 11.0 FL LAB HEMETOLOGY METHOD 03/19/2025 9:[facility] NRBC 0.0 <1.0 % LAB HEMETOLOGY METHOD 03/19/2025 9:33 AM EDT [facility] NRBC Absolute 0.00 <0.10 K/mcL LAB HEMETOLOGY METHOD 03/19/2025 9:33 AM EDT [facility] Blood Venous blood specimen / Unknown Venipuncture / Unknown 03/19/2025 8:12 AM EDT 03/19/2025 9:04 AM EDT us Scott Starr MD LAB BLOOD ORDERABLES Final Result [facility] [address] [place] [address], documented in this encounter Visit Diagnoses Diagnosis Anemia, unspecified documented in this encounter Additional Health Concerns Infection Onset Date Last Indicated Resolved Time C. difficile Rule-Out 04/04/2025 04/04/20252024 12:46 PM EDT documented as of this encounter Care Teams Water Use Inspector Relationship Specialty Start Date End Date Tyler Castillo MD [address] [place] [address] PCP - General Internal Medicine 10/20/15 documented as of this encounter
--- OUTSIDE RECORDS SUMMARY | 2025-06-03 17:40 | XMS_ITS | Clinical Summary ---
Author Organization [address] Address [address] [place] [address] Phone Care Team Providers Care Curriculum Coordinator Name Role Phone Tyler Castillo MD Primary Care Provider [phone] Allergies No known active allergies Medications polyethylene glycol (COLYTE) 240-22.72-6.72 -5.84 gram solution Drink 8 oz every 15 mins over 2 sittings as directed. Finish the entire jug. 04/20/2016 Active Active Problems Problem Noted Date Diagnosed Date GERD (gastroesophageal reflux disease) 5 Glaucoma 2012 Encounters Date Type Department Care Team Description 04/23/2025 Lab Requisition [facility] [address] [place] [phone] Scott Starr MD Anemia, unspecified; Acute kidney failure, unspecified (CMS/[facility] V24) 04/15/2025 Lab Requisition [facility] [address] [place] [phone] Scott Starr MD Benign prostatic hyperplasia without lower urinary tract symptoms; Urinary tract infection, site not specified 04/11/2025 Lab Requisition [facility] [address] [place] [phone] Scott Starr MD Anemia, unspecified; Other malaise 04/07/2025 Lab Requisition [facility] [address] [place] [phone] Scott Starr MD Painful micturition, unspecified; Frequency of micturition; Hematuria, unspecified 04/04/2025 Lab Requisition [facility] [address] [place] [phone] Scott Starr MD Diarrhea, unspecified 03/25/2025 Lab Requisition [facility] [address] [place] [phone] Scott Starr MD Anemia, unspecified 03/18/2025 Lab Requisition [facility] [address] [place] [phone] Scott Starr MD Anemia, unspecified 03/11/2025 Lab Requisition [facility] [address] [place] [phone] Scott Starr MD Anemia, unspecified 03/05/2025 Lab Requisition [facility] [address] [place] [phone] Scott Starr MD Anemia, unspecified from Last 3 Months Immunizations Immunization Administration Dates Next Due Influenza trivalent, with [...] EDT Anemia, unspecified Acute kidney failure, unspecified (CMS/[facility] V24) COMPREHENSIVE METABOLIC PANEL Routine 04/16/2025 7:09 [...] is included. WBC 8.9 4.8 - 10.8 K/[facility] LAB HEMETOLOGY METHOD 04/23/2025 9:48 AM [facility] RBC 4.10(L) 4.50 - 5.50 M/mcL LAB HEMETOLOGY METHOD 04/23/2025 9:48 AM [facility] Hemoglobin 12.0(L) 13.5 - 17.5 g/dL LAB HEMETOLOGY METHOD 04/23/2025 9:48 AM [facility] Hematocrit 37.6(L) 42.0 - 54.0 % LAB HEMETOLOGY METHOD 04/23/2025 9:48 AM [facility] MCV 91.0 79.0 - 98.0 FL LAB HEMETOLOGY METHOD 04/23/2025 9:48 AM [facility] MCH 29.1 27.0 - 32.0 pcg LAB HEMETOLOGY METHOD 04/23/2025 9:48 AM [facility] MCHC 31.9(L) 32.0 - 37.0 g/dL LAB HEMETOLOGY METHOD 04/23/2025 9:48 AM [facility] RDW 14.4 11.0 - 15.0 % LAB HEMETOLOGY METHOD 04/23/2025 9:48 AM [facility] Platelets 437(H) 130 - 400 K/mcL LAB HEMETOLOGY METHOD 04/23/2025 9:48 AM [facility] MPV 8.8 7.0 - 11.0 FL LAB HEMETOLOGY METHOD 04/23/2025 9:48 AM [facility] NRBC 0.0 <1.0 % LAB HEMETOLOGY METHOD 04/23/2025 9:48 AM [facility] NRBC Absolute 0.00 <0.10 K/mcL LAB HEMETOLOGY METHOD 04/23/2025 9:48 AM [facility] Blood Venous blood specimen / Unknown Venipuncture / Unknown 04/23/2025 7:12 AM EDT 04/23/2025 9:11 AM EDT us Scott Starr MD LAB BLOOD ORDERABLES Final Result [facility] [address] [place] [address], [place] [phone] * Basic metabolic panel (04/23/2025 7:12 AM EDT) Only the most recent of5 resultswithin the time period is included. Sodium 139 133 - 145 mmol/L LAB CHEMISTRY METHOD 04/23/2025 10:03 AM [facility] Potassium 4.4 3.5 - 5.5 mmol/L LAB CHEMISTRY METHOD 04/23/2025 10:03 AM [facility] Chloride 107 96 - 110 mmol/L LAB CHEMISTRY METHOD 04/23/2025 10:03 AM [facility] CO2 28 21 - 32 mmol/L LAB CHEMISTRY METHOD 04/23/2025 10:03 AM [facility] Anion Gap 4 3 - 11 LAB CHEMISTRY METHOD 04/23/2025 10:03 AM [facility] Glucose 74 70 - 100 mg/dL LAB CHEMISTRY METHOD 04/23/2025 10:03 AM [facility] BUN 18 5 - 25 mg/dL LAB CHEMISTRY METHOD 04/23/2025 10:03 AM [facility] Creatinine 1.09 0.70 - 1.30 mg/dL LAB CHEMISTRY METHOD 04/23/2025 10:03 AM [facility] eGFR 70 >=60 mL/min/1. 73m2 LAB CHEMISTRY METHOD 04/23/2025 10:03 AM [facility] Comment:Calculation based on the Chronic Kidney Disease Epidemiology Collaboration (CKD-EPI) equation refit without adjustment for race. BUN/Creatinine Ratio 16.5 LAB CHEMISTRY METHOD 04/23/2025 10:03 AM [facility] Calcium 9.1 8.5 - 10.5 mg/dL LAB CHEMISTRY METHOD 04/23/2025 10:03 AM [facility] Blood Venous blood specimen / Unknown Venipuncture / Unknown 04/23/2025 7:12 AM EDT 04/23/2025 9:11 AM EDT Scott Starr MD LAB BLOOD ORDERABLES Final Result [facility] [address] [place] [address], * (ABNORMAL) Comprehensive metabolic panel (04/16/2025 7:09 AM EDT) Only the most recent of2 resultswithin the time period is included. Sodium 139 133 - 145 mmol/L LAB CHEMISTRY METHOD 04/16/2025 12:49 PM [facility] Potassium 4.4 3.5 - 5.5 mmol/L LAB CHEMISTRY METHOD 04/16/2025 12:49 PM [facility] Chloride 105 96 - 110 mmol/L LAB CHEMISTRY METHOD 04/16/2025 12:49 PM [facility] CO2 29 21 - 32 mmol/L LAB CHEMISTRY METHOD 04/16/2025 12:49 PM [facility] Anion Gap 5 3 - 11 LAB CHEMISTRY METHOD 04/16/2025 12:49 PM [facility] Glucose 85 70 - 100 mg/dL LAB CHEMISTRY METHOD 04/16/2025 12:49 PM [facility] BUN 21 5 - 25 mg/dL LAB CHEMISTRY METHOD 04/16/2025 12:49 PM [facility] Creatinine 1.10 0.70 - 1.30 mg/dL LAB CHEMISTRY METHOD 04/16/2025 12:49 PM [facility] eGFR 70 >=60 mL/min/1. 73m2 LAB CHEMISTRY METHOD 04/16/2025 12:49 PM [facility] Comment:Calculation based on the Chronic Kidney Disease Epidemiology Collaboration (CKD-EPI) equation refit without adjustment for race. BUN/Creatinine Ratio 19.1 LAB CHEMISTRY METHOD 04/16/2025 12:49 PM [facility] Calcium 8.5 8.5 - 10.5 mg/dL LAB CHEMISTRY METHOD 04/16/2025 12:49 PM [facility] AST (SGOT) 19 10 - 42 unit/L LAB CHEMISTRY METHOD 04/16/2025 12:49 PM [facility] ALT (SGPT) 29 10 - 60 unit/L LAB CHEMISTRY METHOD 04/16/2025 12:49 PM [facility] Alkaline Phosphatase 78 42 - 121 unit/L LAB CHEMISTRY METHOD 04/16/2025 12:49 PM [facility] Total Protein 6.6 6.0 - 8.0 g/dL LAB CHEMISTRY METHOD 04/16/2025 12:49 PM [facility] Albumin 2.5(L) 3.2 - 5.0 g/dL LAB CHEMISTRY METHOD 04/16/2025 12:49 PM [facility] Total Bilirubin 0.3 0.0 - 1.4 mg/dL LAB CHEMISTRY METHOD 04/16/2025 12:49 PM [facility] Blood Venous blood specimen / Unknown Venipuncture / Unknown 04/16/2025 7:09 AM EDT 04/16/2025 8:53 AM EDT us Scott Starr MD LAB BLOOD ORDERABLES Final Result [facility] [address] [place] [address], * (ABNORMAL) Urinalysis with reflex microscopic and culture (04/07/2025 12:00 AM ED) Specific [place] Urine 1.015 1.003 - 1.030 LAB URINALYSIS - AUTOMATED METHOD 04/07/2025 10:07 AM [facility] pH, Urine 6.0 5.0 - 8.0 pH LAB URINALYSIS - AUTOMATED METHOD 04/07/2025 10:07 AM [facility] Leukocytes, Urine Large(A) Negative LAB URINALYSIS - AUTOMATED METHOD 04/07/2025 10:07 AM [facility] Nitrite, Urine Negative Negative LAB URINALYSIS - AUTOMATED METHOD 04/07/2025 10:07 AM [facility] Protein, Urine 300(A) <=Trace mg/dL LAB URINALYSIS - AUTOMATED METHOD 04/07/2025 10:07 AM [facility] Glucose, Urine Negative Negative mg/dL LAB URINALYSIS - AUTOMATED METHOD 04/07/2025 10:07 AM [facility] Ketones, Urine Negative Negative mg/dL LAB URINALYSIS - AUTOMATED METHOD 04/07/2025 10:07 AM [facility] Urobilinogen , Urine 0.2 0.2 - 1.0 mg/dL LAB URINALYSIS - AUTOMATED METHOD 04/07/2025 10:07 AM [facility] Bilirubin, Urine Negative Negative LAB URINALYSIS - AUTOMATED METHOD 04/07/2025 10:07 AM [facility] Blood, Urine Large(A) Negative LAB URINALYSIS - AUTOMATED METHOD 04/07/2025 10:07 AM [facility] RBC, Urine 508.8(H) 0 - 4 /HPF LAB URINALYSIS - AUTOMATED METHOD 04/07/2025 10:07 AM [facility] WBC, Urine >4,000(H) 0 - 4 /HPF LAB URINALYSIS - AUTOMATED METHOD 04/07/2025 10:07 AM EDT [facility] Squamous Epithelial, Urine 20 0 - 60 /LPF LAB URINALYSIS - AUTOMATED METHOD 04/07/2025 10:07 AM EDT [facility] Bacteria, Urine Many(A) Negative /HPF LAB URINALYSIS - AUTOMATED METHOD 04/07/2025 10:07 AM EDT [facility] Hyaline Casts, Urine 0.2 0 - 3 /LPF LAB URINALYSIS - AUTOMATED METHOD 04/07/2025 10:07 AM EDT [facility] Urine Urine specimen obtained by clean catch procedure / Unknown 04/07/2025 04/07/2025 9:02 AM EDT us Scott Starr MD LAB URINE ORDERABLES Final Result Performing Organization Address [facility]/ZIP Co de Phone Number [facility] [address] [place] [address], [place] [phone] * [place] urine culture tube (04/07/2025 12:00 AM EDT) Extra Tube Hold for add-ons. 04/07/2025 11:01 AM EDT [facility] Comment:Auto resulted. Urine Urine specimen obtained by clean catch procedure / Unknown 04/07/2025 04/07/2025 9:02 AM EDT us Scott Starr MD LAB URINE ORDERABLES Final Result Performing Organization Address [facility]/ZIP Co de Phone Number [facility] [address] [place] [address], [place] [phone] * (ABNORMAL) Culture urine (04/07/2025 12:00 AM EDT) Culture, Urine >=100,000 CFU/mL Pseudomonas aeruginosa(A) MIRIAM 04/10/2025 7:34 AM EDT [facility] Comment: This is an edited result. Previous organism was Gram negative bacilli on 04/08/2025 at 0830 EDT. Culture, Urine 10,000-49,000 CFU/mL Citrobacter freundii(A) MIRIAM 04/10/2025 7:34 AM EDT [facility] Comment: The organism value for this result has been updated. These results have been appended to the previously preliminary verified report. This is an edited result. Previous organism was Gram negative bacilli on 04/09/2025 at 0938 EDT. Culture, Urine 10,000-49,000 CFU/mL Enterococcus faecalis(A) MIRIAM 04/10/2025 7:34 AM EDT [facility] Comment: The organism value for [...] LAB MICROBIOLOGY - GENERAL ORDERABLES Final Result [facility] [address] [place] [address], [place] [phone] * SST tube (03/19/2025 8:12 AM EDT) Extra Tube Hold for add-ons. 03/19/2025 11:01 AM EDT [facility] Comment:Auto resulted. Blood Venous blood specimen / Unknown Venipuncture / Unknown 03/19/2025 8:12 AM EDT 03/19/2025 9:04 AM EDT us Scott Starr MD LAB BLOOD ORDERABLES Final Result [facility] [address] [place] [address], [place] [phone] * Red tube (03/19/2025 8:12 AM EDT) Extra Tube Hold for add-ons. 03/19/2025 11:01 AM EDT [facility] Comment:Auto resulted. Blood Venous blood specimen / Unknown Venipuncture / Unknown 03/19/2025 8:12 AM EDT 03/19/2025 9:04 AM EDT us Scott Starr MD LAB BLOOD ORDERABLES Final Result Performing Organization Address City/[facility]/ZIP Co de Phone Number [facility] [address] [place] [address], [place] [phone] * Thyroid stimulating hormone (03/19/2025 8:12 AM EDT) TSH 0.86 0.40 - 4.00 mcIU/mL LAB CHEMISTRY METHOD 03/19/2025 11:51 AM EDT [facility] Blood Venous blood specimen / Unknown Venipuncture / Unknown 03/19/2025 8:12 AM EDT 03/19/2025 9:04 AM EDT us Scott Starr MD LAB BLOOD ORDERABLES Final Result Performing Organization Address [facility]/ZIP Co de Phone Number [facility] [address] [place] [address], [place] [phone] * Cortisol (03/19/2025 8:12 AM EDT) Cortisol 35.1 mcg/dL LAB CHEMISTRY METHOD 03/19/2025 11:51 AM EDT [facility] Blood Venous blood specimen / Unknown Venipuncture / Unknown 03/19/2025 8:12 AM EDT 03/19/2025 9:04 AM EDT Narrative [facility] - 03/19/2025 11:51 AM EDT CORTISOL REFERENCE RANGE 8 AM SPEC: 5.0-23.0 mcg/dL 4 PM SPEC: 3.0-16.0 mcg/dL 8 PM SPEC: <5.0 mcg/dL us Scott Starr MD LAB BLOOD ORDERABLES Final Result Performing Organization Address City/[facility]/ZIP Co de Phone Number [facility] [address] [place] [address], [place] [phone] * Phosphorus (03/12/2025 7:13 AM EDT) Only the most recent of2 resultswithin the time period is included. Phosphorus 3.4 2.5 - 4.5 mg/dL LAB CHEMISTRY METHOD 03/12/2025 11:29 AM EDT [facility] Blood Venous blood specimen / Unknown Venipuncture / Unknown 03/12/2025 7:13 AM EDT 03/12/2025 10:31 AM EDT us Scott Starr MD LAB BLOOD ORDERABLES Final Result Performing Organization Address City/[facility]/ZIP Co de Phone Number [facility] [address] [place] [address], * Magnesium (03/12/2025 7:13 AM EDT) Only the most recent of2 resultswithin the time period is included. [facility] Magnesium 2.3 1.9 - 2.6 mg/dL LAB CHEMISTRY METHOD 03/12/2025 11:29 AM EDT [facility] Comment:Hemolysis present Blood Venous blood specimen / Unknown Venipuncture / Unknown 03/12/2025 7:13 AM EDT 03/12/2025 10:31 AM EDT us Scott Starr MD LAB BLOOD ORDERABLES Final Result [facility] [address] [place] [address], [place] [phone] * (ABNORMAL) Lipid panel (03/05/2016) [facility] LDL/HDL Ratio 4 0 - 4 Triglycerides 140 0 - 150 mg/dL Cholesterol 188 0 - 200 mg/dL HDL 43 >=40 mg/dL LDL Cholesterol 117(A) 0 - 100 mg/dL Blood Venous blood specimen / Unknown us Usha Nicole MD LAB BLOOD ORDERABLES Marilou l Result from Last 3 Months or Most Recently Relevant to Health Maintenance Insurance MEDICAID - [place] MEDICARE Care Teams Curriculum Coordinator Relationship Specialty Start Date End Date Tyler Castillo MD [address] [place] [id number] PCP - General Internal Medicine 10/20/15
--- OUTSIDE RECORDS SUMMARY | 2025-06-03 17:40 | XMS_ITS | Encounter Summary ---
Author Organization [facility] Address [address] [place] [address] Care Team Providers Care Webbing Supervisor Name Role Phone Tyler Castillo MD Primary Care Provider [phone] Encounter Details Date Type Department Care Team (Late st Contact Info) Description 04/04/2025 Lab Requisition [facility] - Main Lab [address] [facility] [place] [address] Scott Starr MD [address] [place] [phone] Diarrhea, unspecified Social History Tobacco Use Types [...] documented as of this encounter Care Teams Webbing Supervisor Relationship Specialty Start Date End Date Tyler Castillo MD [address] [place] [phone] PCP - General Internal Medicine 10/20/15 documented as of this encounter
--- OUTSIDE RECORDS SUMMARY | 2025-06-03 17:41 | XMS_ITS | Encounter Summary ---
Author Organization [facility] Address [address] [place] [address] Care Team Providers Care Logistics Coordinator Name Role Phone Tyler Castillo MD Primary Care Provider [phone] Encounter Details Date Type Department Care Team (Late st Contact Info) Description 04/07/2025 Lab Requisition [facility] - Main Lab [address] [facility] [place] [address] Scott Starr MD [address] [place], [place] [phone] Painful micturition, unspecified; Frequency of micturition; Hematuria, [...] Pseudomonas aeruginosa(A) MIRIAM 04/10/2025 7:34 AM EDT [facility] Comment: This is an edited result. Previous organism was Gram negative bacilli on 04/08/2025 at 0830 EDT. Culture, Urine 10,000-49,000 CFU/mL Citrobacter freundii(A) MIRIAM 04/10/2025 7:34 AM EDT [facility] Comment: The organism value for this result has been updated. These results have been appended to the previously preliminary verified report. This is an edited result. Previous organism was Gram negative bacilli on 04/09/2025 at 0938 EDT. Culture, Urine 10,000-49,000 CFU/mL Enterococcus faecalis(A) MIRIAM 04/10/2025 7:34 AM EDT [facility] Comment: The organism value for [...] LAB MICROBIOLOGY - GENERAL ORDERABLES Final Result [facility] [address] [place] [address], * (ABNORMAL) Urinalysis with reflex microscopic and culture (04/07/2025 12:00 AM EDT) Specific [place] Urine 1.015 1.003 - 1.030 LAB URINALYSIS - AUTOMATED METHOD 04/07/2025 10:07 AM EDT [facility] pH, Urine 6.0 5.0 - 8.0 pH LAB URINALYSIS - AUTOMATED METHOD 04/07/2025 10:07 AM EDT [facility] Leukocytes, Urine Large(A) Negative LAB URINALYSIS - AUTOMATED METHOD 04/07/2025 10:07 AM EDT [facility] Nitrite, Urine Negative Negative LAB URINALYSIS - AUTOMATED METHOD 04/07/2025 10:07 AM [facility] Protein, Urine 300(A) <=Trace mg/dL LAB URINALYSIS - AUTOMATED METHOD 04/07/2025 10:07 AM [facility] Glucose, Urine Negative Negative mg/dL LAB URINALYSIS - AUTOMATED METHOD 04/07/2025 10:07 AM [facility] Ketones, Urine Negative Negative mg/dL LAB URINALYSIS - AUTOMATED METHOD 04/07/2025 10:07 AM [facility] Urobilinogen , Urine 0.2 0.2 - 1.0 mg/dL LAB URINALYSIS - AUTOMATED METHOD 04/07/2025 10:07 AM [facility] Bilirubin, Urine Negative Negative LAB URINALYSIS - AUTOMATED METHOD 04/07/2025 10:07 AM [facility] Blood, Urine Large(A) Negative LAB URINALYSIS - AUTOMATED METHOD 04/07/2025 10:07 AM [facility] RBC, Urine 508.8(H) 0 - 4 /HPF LAB URINALYSIS - AUTOMATED METHOD 04/07/2025 10:07 AM [facility] WBC, Urine >4,000(H) 0 - 4 /HPF LAB URINALYSIS - AUTOMATED METHOD 04/07/2025 10:07 AM [facility] Squamous Epithelial, Urine 20 0 - 60 /LPF LAB URINALYSIS - AUTOMATED METHOD 04/07/2025 10:07 AM [facility] Bacteria, Urine Many(A) Negative /HPF LAB URINALYSIS - AUTOMATED METHOD 04/07/2025 10:07 AM [facility] Hyaline Casts, Urine 0.2 0 - 3 /LPF LAB URINALYSIS - AUTOMATED METHOD 04/07/2025 10:07 AM [facility] Urine Urine specimen obtained by clean catch procedure / Unknown 04/07/2025 04/07/2025 9:02 AM EDT us Scott Starr MD LAB URINE ORDERABLES Final Result Performing Organization Address [facility]/ZIP Co de Phone Number [facility] [address] [place] [address], [place] [phone] * [place] urine culture tube (04/07/2025 12:00 AM EDT) Extra Tube Hold for add-ons. 04/07/2025 11:01 AM EDT [facility] Comment:Auto resulted. Urine Urine specimen obtained by clean catch procedure / Unknown 04/07/2025 04/07/2025 9:02 AM EDT us Scott Starr MD LAB URINE ORDERABLES Final Result Performing Organization Address [facility] de Phone Number [facility] [address] [place] [address], [place] [phone] documented in this encounter Visit Diagnoses Diagnosis Painful micturition, unspecified Frequency of micturition Urinary frequency Hematuria, unspecified documented in this encounter Care Teams Logistics Coordinator Relationship Specialty Start Date End Date Tyler Castillo MD [address] [place] [address] PCP - General Internal Medicine 10/20/15 documented as of this encounter
--- OUTSIDE RECORDS SUMMARY | 2025-06-03 17:41 | XMS_ITS | Encounter Summary ---
Author Organization [facility] Address [address] [place] [address] Care Team Providers Care Sheet Metal Production Worker Name Role Phone Tyler Castillo MD Primary Care Provider [phone] Encounter Details Date Type Department Care Team (Late st Contact Info) Description 03/25/2025 Lab Requisition [facility] - Main Lab [address] [place] [address] Scott Starr MD [address] [place], [place] [phone] Anemia, unspecified Social History Tobacco Use Types [...] LAB CHEMISTRY METHOD 03/26/2025 11:14 AM EDT [facility] Potassium 5.0 3.5 - 5.5 mmol/L LAB CHEMISTRY METHOD 03/26/2025 11:14 AM [facility] Chloride 105 96 - 110 mmol/L LAB CHEMISTRY METHOD 03/26/2025 11:14 AM [facility] CO2 26 21 - 32 mmol/L LAB CHEMISTRY METHOD 03/26/2025 11:14 AM [facility] Anion Gap 7 3 - 11 LAB CHEMISTRY METHOD 03/26/2025 11:14 AM [facility] Glucose 85 70 - 100 mg/dL LAB CHEMISTRY METHOD 03/26/2025 11:14 AM [facility] BUN 18 5 - 25 mg/dL LAB CHEMISTRY METHOD 03/26/2025 11:14 AM [facility] Creatinine 1.06 0.70 - 1.30 mg/dL LAB CHEMISTRY METHOD 03/26/2025 11:14 AM [facility] eGFR 73 >=60 mL/min/1. 73m2 LAB CHEMISTRY METHOD 03/26/2025 11:14 AM [facility] Comment:Calculation based on the Chronic Kidney Disease Epidemiology Collaboration (CKD-EPI) equation refit without adjustment for race. BUN/Creatinine Ratio 17.0 LAB CHEMISTRY METHOD 03/26/2025 11:14 AM [facility] Calcium 9.5 8.5 - 10.5 mg/dL LAB CHEMISTRY METHOD 03/26/2025 11:14 AM [facility] Blood Venous blood specimen / Unknown Venipuncture / Unknown 03/26/2025 8:08 AM EDT 03/26/2025 10:22 AM EDT us Scott Starr MD LAB BLOOD ORDERABLES Final Result [facility] [address] [place] [address], * Complete blood count (03/26/2025 8:08 AM EDT) WBC 9.5 4.8 - 10.8 K/[facility] HEMETOLOGY METHOD 03/26/2025 10:51 AM [facility] RBC 4.70 4.50 - 5.50 M/[facility] LAB HEMETOLOGY METHOD 03/26/2025 10:51 AM [facility] Hemoglobin 13.9 13.5 - 17.5 g/dL LAB HEMETOLOGY METHOD 03/26/2025 10:51 AM [facility] Hematocrit 43.4 42.0 - 54.0 % LAB HEMETOLOGY METHOD 03/26/2025 10:51 AM [facility] MCV 91.6 79.0 - 98.0 FL LAB HEMETOLOGY METHOD 03/26/2025 10:51 AM [facility] MCH 29.3 27.0 - 32.0 pcg LAB HEMETOLOGY METHOD 03/26/2025 10:51 AM [facility] MCHC 32.0 32.0 - 37.0 g/dL LAB HEMETOLOGY METHOD 03/26/2025 10:51 AM [facility] RDW 14.1 11.0 - 15.0 % LAB HEMETOLOGY METHOD 03/26/2025 10:51 AM [facility] Platelets 378 130 - 400 K/[facility] HEMETOLOGY METHOD 03/26/2025 10:51 AM [facility] MPV 9.5 7.0 - 11.0 FL LAB HEMETOLOGY METHOD 03/26/2025 10:51 AM [facility] NRBC 0.0 <1.0 % LAB HEMETOLOGY METHOD 03/26/2025 10:51 AM [facility] NRBC Absolute 0.00 <0.10 K/[facility] HEMETOLOGY METHOD 03/26/2025 10:51 AM [facility] Blood Venous blood specimen / Unknown Venipuncture / Unknown 03/26/2025 8:08 AM EDT 03/26/2025 10:22 AM EDT Scott Starr MD LAB BLOOD ORDERABLES Final Result [facility] [address] [place] [address], documented in this encounter Visit Diagnoses Diagnosis Anemia, unspecified documented in this encounter Additional Health Concerns Infection Onset Date Last Indicated Resolved Time C. difficile Rule-Out 04/04/2025 04/04/20252024 12:46 PM EDT documented as of this encounter Care Teams Sheet Metal Production Worker Relationship Specialty Start Date End Date Tyler Castillo MD [address] [place] [address] PCP - General Internal Medicine 10/20/15 documented as of this encounter
--- OUTSIDE RECORDS SUMMARY | 2025-06-03 17:41 | XMS_ITS | Patient Health Record ---
Author Organization Thaddeus Oreilly III, MD Address [address] [place] [address] [place] [address] Care Team Providers Care Dedicated Driver Name Role Phone Dr. Thaddeus Oreilly III Primary Care Provider [phone] Allergies Allergen (clinical drug ingredient) Drug/Non Drug Allergy documented on EMR Reaction Allergy Type Onset Date Status No Known Drug Allergy Unknown Drug Allergy Active Results Component Value Reference Range Notes Complete Blood Count Auto Di ff Reviewed date:08/13/2024 04:55:29 AM Interpretation: Performing Lab:[facility], [address] [place] [phone] Notes/Report: White Blood Count 9.6 4.8-10.8 X10*3/uL [...] Panel Reviewed date:08/13/2024 04:55:29 AM Interpretation: Performing Lab:[address] [address] Notes/Report: Sodium 139 135-145 mmol/L Potassium 5.0 [...] Antigen Reviewed date:08/13/2024 04:55:29 AM Interpretation: Performing Lab:[address] [address] Notes/Report: Prostate Specific Antigen 4.00 <0.05- 4.0 ng/mL PSA methodology: Whatley Alinity i Chemiluminescent Microparticle Immunoassay (CMIA) Complete Blood Count Auto Di ff Reviewed date:11/05/2024 03:32:23 PM Interpretation: Performing Lab:[facility], [address] [place] [phone] Notes/Report: White Blood Count 7.8 4.8-10.8 X10*3/uL [...] NRBC Abs Auto 0.000 0.0-0.012 X10*3/uL Comprehensive Swisher. Panel Fa st Reviewed date:11/05/2024 03:32:23 PM Interpretation: Performing Lab:[facility], [address] [place] [address] Notes/Report: Sodium 139 135-145 mmol/L Potassium 4.4 [...] Panel Reviewed date:11/05/2024 03:32:23 PM Interpretation: Performing Lab:[address] [address] Notes/Report: Triglycerides 197 <150 mg/dL Desirable Triglyceride: [...] Antigen Reviewed date:11/05/2024 03:32:23 PM Interpretation: Performing Lab:[facility], [address] [place] [phone] Notes/Report: Prostate Specific Antigen 3.92 <0.05- 4.0 ng/mL PSA methodology: Whatley Alinity i Chemiluminescent Microparticle Immunoassay (CMIA) Complete Blood Count Auto Di ff Reviewed date:02/24/2025 01:37:52 PM Interpretation: Performing Lab:[facility], [address] [place] [phone] Notes/Report: White Blood Count 15.3 4.8-10.8 X10*3/uL [...] Panel Reviewed date:02/24/2025 01:37:52 PM Interpretation: Performing Lab:[facility], [address] [place] [phone] Notes/Report: Bilirubin Total 0.6 0.0-1.0 mg/dL Bilirubin Direct 0.3 0.0-0.5 mg/dL Aspartate Amino Transferase 22 5-37 U/L Alanine Aminotransferase 21 0-40 U/L Total Protein 7.4 6.5-8.0 g/dL Albumin Level 4.3 3.5-5.0 g/dL Alkaline Phosphatase 91 39-117 U/L Basic Metabolic Panel Reviewed date:02/24/2025 01:37:52 PM Interpretation: Performing Lab:[facility], [address] [place] [phone] Notes/Report: Sodium 142 135-145 mmol/L Potassium 4.5 [...] Acid Reviewed date:02/24/2025 01:37:52 PM Interpretation: Performing Lab:[facility], [address] [place] [phone] Notes/Report: Lactic Acid 1.0 0.5-2.0 mmol/L Magnesium Reviewed date:02/24/2025 01:37:52 PM Interpretation: Performing Lab:[facility], [address] [place] [phone] Notes/Report: Magnesium 2.3 1.6-2.6 mg/dL Urine Culture Reviewed date:02/24/2025 01:37:52 PM Interpretation: Performing Lab:[address] [address] Notes/Report: Urine Culture No growth. Blood Culture (First) Reviewed date:02/28/2025 04:32:50 AM Interpretation: Performing Lab:[facility], [address] [place] [phone] Notes/Report: Blood Culture (First) No growth after 5 days. Blood Culture (Second) Reviewed date:02/28/2025 04:32:50 AM Interpretation: Performing Lab:[address] [address] Notes/Report: Blood Culture (Second) No growth after 5 days. UA ClnCatch+Micro w/rflx Cul t Reviewed date:02/24/2025 01:37:52 PM Interpretation: Performing Lab:[facility], [address] [place] [phone] Notes/Report: [id number] Urine, Catheterized Color Urine Yellow Appearance Urine Clear PH 5.0 5.0-9.0 Glucose Urine UA Negative Negative mg/dL Urine Blood Small (1+) Negative Specific Stuart - Urine 1.020 1.005-1.025 Urine Protein Negative [...] date:02/24/2025 01:37:52 PM Interpretation: Performing Lab: Notes/Report: [address] [address] [address] Scan Report Signed Patient: Curt Woods MR#: [id number] : 1950 Acct:[id number] Age/Sex: 74 / M ADM Date: 02/22/25 Loc: [facility] 468-[address]: Anupam Tate MD Ordering Physician: Francisco Blanton MD Date of Service: 02/22/25 Procedure(s): CT abdomen pelvis wo IV con Accession Number(s): [id number] cc: Thaddeus Oreilly MD; Francisco Blanton MD Report Number: [id number]: Total DLP = 711.00 mGy-cm CLINICAL HISTORY: [...] in OV> 02/22/252233 DD/ 31 TD/TT: 02/22/252231 Police Detention Attendant: [place] [address] CT Scan Report Signed Patient: Mikhail Woods MR#: [id number] : 1950 Acct:[id number] Age/Sex: 74 / M ADM Date: 02/22/25 Loc: [facility] 468-[address]: Rich Tate MD Ordering Physician: Francisco Blanton MD Date of Service: 02/22/25 Procedure(s): CT abd omen pelvis wo IV con Accession Number(s): [id number] cc: Thaddeus Oreilly MD; Francisco Blanton MD [...] in OV> 02/22/252233 DD/ 31 TD/TT: 02/22/252231 Police Detention Attendant: Complete Blood Count Auto Di ff Reviewed date:02/24/2025 01:37:52 PM Interpretation: Performing Lab:[facility], [address] [place] [phone] Notes/Report: White Blood Count 11.8 4.8-10.8 X10*3/uL [...] Panel Reviewed date:02/24/2025 01:37:52 PM Interpretation: Performing Lab:[facility], [address] [place] [phone] Notes/Report: Sodium 143 135-145 mmol/L Potassium 4.0 [...] Panel Reviewed date:02/24/2025 01:37:52 PM Interpretation: Performing Lab:[address] [address] Notes/Report: Sodium 143 135-145 mmol/L Potassium 3.4 [...] Phosphorus Reviewed date:02/24/2025 01:37:52 PM Interpretation: Performing Lab:[facility], [address] [place] [phone] Notes/Report: Phosphorus 2.2 2.7-4.5 mg/dL Magnesium Reviewed date:02/24/2025 01:37:52 PM Interpretation: Performing Lab:[address] [address] Notes/Report: Magnesium 1.2 1.6-2.6 mg/dL Critical [Magnesium] sent by a secure message and confirmed by (SHONA, 02/24/25 1154) Tech: ROSEMARY Basic Metabolic Panel Reviewed date:02/27/2025 05:39:52 AM Interpretation: Performing Lab:[facility], [address] [place] [phone] Notes/Report: Sodium 139 135-145 mmol/L Potassium 3.0 [...] Phosphorus Reviewed date:02/27/2025 05:39:52 AM Interpretation: Performing Lab:[facility], [address] [place] [phone] Notes/Report: Phosphorus 1.4 2.7-4.5 mg/dL Magnesium Reviewed date:02/27/2025 05:39:52 AM Interpretation: Performing Lab:[facility], [address] [place] [phone] Notes/Report: Magnesium 1.4 1.6-2.6 mg/dL Critical mags sent by a secure message and confirmed by katelin Smart 02/25/25 0956 Tech: [email or web address] Basic Metabolic Panel Reviewed date:02/27/2025 05:39:52 AM Interpretation: Performing Lab:[facility], [address] [place] [phone] Notes/Report: Sodium 139 135-145 mmol/L Test was [...] Phosphorus Reviewed date:02/27/2025 05:39:52 AM Interpretation: Performing Lab:[facility], [address] [place] [phone] Notes/Report: Phosphorus 2.4 2.7-4.5 mg/dL Magnesium Reviewed date:02/27/2025 05:39:52 AM Interpretation: Performing Lab:[facility], [address] [place] [phone] Notes/Report: Magnesium 1.7 1.6-2.6 mg/dL Basic Metabolic Panel Reviewed date:02/27/2025 05:39:52 AM Interpretation: Performing Lab:[facility], [address] [place] [phone] Notes/Report: Sodium 142 135-145 mmol/L Potassium 3.6 [...] Phosphorus Reviewed date:02/27/2025 05:39:52 AM Interpretation: Performing Lab:[facility], [address] [place] [phone] Notes/Report: Phosphorus 2.0 2.7-4.5 mg/dL Magnesium Reviewed date:02/27/2025 05:39:52 AM Interpretation: Performing Lab:[facility], [address] [place] [phone] Notes/Report: Magnesium 1.4 1.6-2.6 mg/dL Critical [MAGS] sent by a secure message and confirmed by ( [place] [id number] @0631) Tech:TIFF Hold Lav - Possible Hematolo gy Reviewed date:02/27/2025 03:19:41 PM Interpretation: Performing Lab:[facility], [address] [place] [phone] Notes/Report: Hold Lav - Possible Hematology SEE NOTE Specimen will be held untested for 8 hours. Call Hematology if testing is desired. Basic Metabolic Panel Reviewed date:02/27/2025 03:19:41 PM Interpretation: Performing Lab:[facility], [address] [place] [phone] Notes/Report: Sodium 142 135-145 mmol/L Potassium 4.1 [...] Phosphorus Reviewed date:02/27/2025 03:19:41 PM Interpretation: Performing Lab:[facility], [address] [place] [phone] Notes/Report: Phosphorus 2.0 2.7-4.5 mg/dL Magnesium Reviewed date:02/27/2025 03:19:41 PM Interpretation: Performing Lab:[address] [address] Notes/Report: Magnesium 1.9 1.6-2.6 mg/dL Urine Culture (Not yet revie wed by provider) Interpretation: Performing Lab:[address] [address] Notes/Report: O:ENTFAC Enterococcus faecalis Urine Culture Quant Urine Culture > 100,000 cfu/mL Ampicillin <=2 Levofloxacin 0.5 Nitrofurantoin <=16 Tetracycline >=16 Vancomycin 1 Complete Blood Count Auto Di ff (Not yet reviewed by provider) Interpretation: Performing Lab:[facility], [address] [place] [phone] Notes/Report: White Blood Count 13.1 4.8-10.8 X10*3/uL Red Blood Count 4.44 4.60-5.80 X10*6/uL Hemoglobin 13.2 14.0-18.0 g/dl Hematocrit 40.3 42.0-52.0 % Mean Corpuscular Volume 90.8 80.0-98.0 fL Mean Corpuscular Hemoglobin 29.7 27.0-33.0 pg Mean Corpuscular HGB Conc 32.8 31.0-36.0 g/dl Red Cell Distribution Width 15.0 11.0-16.0 % Platelet Count 366 160-400 X10*3/uL Mean Platelet Volume 8.6 9.4-12.4 fL Neutrophils Percent Auto 79.0 45-73 % Imm Gran Pct Auto 0.4 0.0-0.4 % Lymphocytes Percent Auto 11.2 20-40 % Monocytes Percent Auto 7.2 2-11 % Eosinophils Percent Auto 1.3 0-4 % Basophils Percent Auto 0.9 0-2 % NRBC Pct Auto 0.0 0.0-0.2 /100WBC Neutrophils Absolute Auto 10.3 2.0-8. 3 x10*3/uL Imm Gran Abs Auto 0.05 0.00-0.03 X10*3/uL Lymphocytes Absolute Auto 1.5 1.2-4. 9 X10*3/uL Monocytes Absolute Auto 0.9 0.1-1.2 X10*3/uL Eosinophils Absolute Auto 0.2 0.0-0. 4 X10*3/uL Basophils Absolute Auto 0.1 0.0-0.2 X10*3/uL NRBC Abs Auto 0.000 0.0-0.012 X10*3/uL Reason For Referral No Information Medications Medication [...] TAKE 1 CAPSULE BY [facility] EVERY DAY 30 MINUTES BEFORE BREAKFAST Active [...] Problem Status W/U Status Risk Notes Problem 5526900 Former smoker (Z87.891) Active confirmed He is highly motivated not to smoke. We discussed a plan to prevent relapse in times of stress and illness. Problem 350382209 Overweight (BMI 25.0-29.9) (E66.3) Active confirmed He is now overweight with a body mass index of 25.68. We discussed his weight loss strategy and I reinforced continued weight loss through diet restricted in fat calories and sodium. Problem Obese class I (finding) (504591715480 107) Obesity (BMI 30.0-34.9) (E66.9) Active confirmed His body mass index is 31 with 243 pounds. We have reviewed his weight loss strategy. We have discussed diet and nutrition. I recommended he lose weight at a rate of one half up of a pound to a diet restricted in fat calories and sodium combined with regular exercise. Problem 80242549 Skin lesion (L98.9) Active confirmed He will call me in 3 weeks. If the lesion does not resolve he will be seen by a hoop machine operator. Problem 43810192 Simple chronic bronchitis (J41.0) Active confirmed Problem 50985777 Chronic obstructive pulmonary disease, unspecified COPD type (J44.9) Active confirmed He will continu e to see the hide house supervisor regularly. The 6 mm pulmonary nodule will be followed carefully. He is no longer smoking. He will exercise regularly. He will continue to use his nebulizer and his new inhaler. Problem Benign prostatic hypertrophy (068408741) Benign prostatic hypertrophy (N40.0) Active confirmed He recently became unable to sleep and has overflow incontinence with a massively distended bladder. He has been hospitalized. Problem 760107253 Gastroesophageal reflux disease without esophagitis (K21.9) Active confirmed His symptoms ar e well-controlled with current regimen. No change was necessary today. Problem 850602595 Urine retention (R33.9) Active confirmed He was acutely ill and was taken to the emergency room at [facility] across the street from my office he was evaluated and subsequently admitted to the hospital.He was discharged after 6 days and spent 2 months in rehabilitation and is now living at home alone with nursing support. He has an indwelling Mojica catheter in place. He will see urology next week for an outpatient voiding trial. Problem 598121272 History of appendectomy (Z90.49) Active confirmed This was done a t the age of 7. 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 Problem 048656560 Pulmonary nodule less than 6 mm determined [...] Date Provider Diagnosis Thaddeus Oreilly III, MD [address] [place] [address] [place] [phone] 08/13/2024 Thaddeus Oreilly Benign prostatic hypertrophy N40.0 ; Chronic obstructive pulmonary disease, unspecified COPD type J44.9 ; Former smoker Z87.891 ; Gastroesophageal reflux disease without esophagitis K21.9 and Overweight (BMI 25.0-29.9) E66.3 Thaddeus Oreilly III, MD [address] [place] [address] [place] [phone] 11/05/2024 Thaddeus Oreilly History of appendect lyndsey Z90.49 ; Chronic obstructive pulmonary disease, unspecified COPD type J44.9 ; Former smoker Z87.891 ; Gastroesophageal reflux disease without esophagitis K21.9 ; Benign prostatic hypertrophy N40.0 and Overweight (BMI 25.0-29.9) E66.3 Thaddeus Oreilly III, MD [address] [place] [address] [place] [phone] 02/22/2025 Thaddeus Oreilly Urine retention R33. 9 ; Chronic obstructive pulmonary disease, unspecified COPD type J44.9 ; Gastroesophageal reflux disease without esophagitis K21.9 ; Former smoker Z87.891 ; Overweight (BMI 25.0-29.9) E66.3 and Benign prostatic hypertrophy N40.0 Thaddeus Oreilly III, MD [address] [place] [address] [place] [phone] 04/26/2025 Thaddeus Oreilly Chronic obstructive pulmonary disease, unspecified COPD type J44.9 ; Urine retention R33.9 ; Former smoker Z87.891 ; Overweight (BMI 25.0-29.9) E66.3 and Benign prostatic hypertrophy N40.0 Thaddeus Oreilly III, MD [address] [place] [address] [place] [address] 05/21/2025 Thaddeus Oreilly Benign prostatic hypertrophy N40.0 ; Urine retention R33.9 ; Overweight (BMI 25.0-29.9) E66.3 ; Former smoker Z87.891 ; Gastroesophageal reflux disease without esophagitis K21.9 ; Pulmonary nodule less than 6 mm determined by computed tomography of lung R91.1 and Chronic obstructive pulmonary disease, unspecified COPD type J44.9 Thaddeus Oreilly III, MD [address] [place] [address] [place] [address] 03/13/2025 Thaddeus Oreilly III, MD [address] [place] [address] [place] [phone] 04/22/2025 Thaddeus Oreilly III, MD [address] [place] [address] [place] [address] 04/24/2025 Thaddeus Oreilly III, MD [address] [place] [address] [place] [address] 04/30/2025 Thaddeus Oreilly III, MD [address] [place] [address] [place] [address] 05/01/2025 Thaddeus Oreilly Assessments Encounter Date Diagnosis (ICD Code) Assessment Notes T reatment Notes Treatment Clinical Notes 08/13/2024 Chronic obstructive pulmonary disease, unspecified COPD type (ICD-10 - J44.9) He will continue to see the hide house supervisor regularly. The 6 mm pulmonary nodule [...] J44.9) He will continue to see the hide house supervisor regularly. The 6 mm pulmonary nodule [...] to the emergency room at [facility] across the street from my office he was evaluated and subsequently admitted to the hospital. 04/26/2025 Chronic obstructive pulmonary disease, unspecified COPD type (ICD-10 - J44.9) He will continue to see the hide house supervisor regularly. The 6 mm pulmonary nodule will be followed carefully. He is no longer smoking. He will exercise regularly. He will continue to use his nebulizer and his new inhaler. 04/26/2025 Urine retention (ICD-10 - R33.9) He was acutely ill and was taken to the emergency room at [facility] [place] office he was evaluated and [...] was taken to the emergency room at [facility] [place] office he was evaluated and [...] J44.9) He will continue to see the hide house supervisor regularly. The 6 mm pulmonary nodule [...] J44.9) He will continue to see the hide house supervisor regularly. The 6 mm pulmonary nodule will be followed carefully. He is no longer smoking. He will exercise regularly. He will continue to use his nebulizer and his new inhaler. Plan Of Treatment Pending Test Test Name Order Date PROFILE, FASTING (COMPREHENSIVE METABOLI C) 03/31/2022 PROFILE, FASTING (COMPREHENSIVE METABOLI C) 05/21/2025 PROFILE, FASTING (COMPREHENSIVE METABOLI C) 12/02/2021 PROFILE, FASTING (COMPREHENSIVE METABOLI C) 11/05/2024 PROFILE, FASTING (COMPREHENSIVE METABOLI C) 10/15/2020 PROFILE, FASTING (COMPREHENSIVE METABOLI C) 08/13/2024 PROFILE, RANDOM (COMPREHENSIVE METABOLIC ) 09/02/2021 LIPID PANEL 10/15/2020 LIPID PANEL 12/02/2021 LIPID PANEL 09/02/2021 PSA, TOTAL 08/13/2024 PSA, TOTAL 10/15/2020 PSA, TOTAL 03/31/2022 PSA, TOTAL 05/21/2025 PSA, TOTAL 12/02/2021 PSA, TOTAL 11/05/2024 PSA, TOTAL 09/02/2021 CBC w DIFF 09/02/2021 CBC w DIFF 10/15/2020 CBC w DIFF 03/31/2022 CBC w DIFF 05/21/2025 CBC w DIFF 12/02/2021 CBC w DIFF 11/05/2024 XR CHEST 2 VIEW PA & LAT 05/22/2018 XR CHEST 2 VIEW PA & LAT 03/12/2020 Echocardiogram 05/22/2018 PFT with DLCO 04/04/2020 CBC WITH AUTO DIFF 08/13/2024 Complete Blood Count Auto Diff Lipid Panel 11/05/2024 Lipid Panel 08/13/2024 Lipid Panel 03/31/2022 Lipid Panel 05/21/2025 Urine Culture 05/23/2025 Next Appt Details Provider Name:Thaddeus Oreilly , 06/10/2025 03:15:00 PM, [address] [place] [address] [address], [place], [address], Provider Name:Thaddeus Oreilly , 11/06/2025 03:00:00 PM, [address] [place] [address] [address], [place], [phone], Insurance Providers Payer Name Payer Address Payer Phone Subscriber Number Group Number Insured Name Patient Relationship to Insured Coverage Start Date Coverage End Date MEDICARE NGS [address] [place] [address] [id number] CURT WOODS Self - patient is the insured MEDICA[place] [address] [place] [id number] CURT WOODS Self - patient is the insured Medical (General) History Medical History History ICD Code COPD Emphysema Diffusion defect 6 mm pulmonary nodule November 2021 Obesity Benign prostatic hypertrophy Glaucoma Former smoker GERD Surgical History Surgery Date(Month/Year) No history appendectomy age 7 Hospitalization History Reason Date(Month/Year) No history
--- OUTSIDE RECORDS SUMMARY | 2025-06-03 17:41 | XMS_ITS | Encounter Summary ---
Author Organization [facility] [place] [facility] Address [address] [place] [address] Care Team Providers Care Income Tax Analyst Name Role Phone Tyler Castillo MD Primary Care Provider [phone] Encounter Details Date Type Department Care Team (Late st Contact Info) Description 04/15/2025 Lab Requisition [facility] - Main Lab [address] [place] [address] Scott Starr MD [address] [place], [place] [id number] Benign prostatic hyperplasia without lower urinary tract [...] LAB CHEMISTRY METHOD 04/16/2025 12:49 PM EDT [facility] Potassium 4.4 3.5 - 5.5 mmol/L LAB CHEMISTRY METHOD 04/16/2025 12:49 PM [facility] Chloride 105 96 - 110 mmol/L LAB CHEMISTRY METHOD 04/16/2025 12:49 PM [facility] CO2 29 21 - 32 mmol/L LAB CHEMISTRY METHOD 04/16/2025 12:49 PM [facility] Anion Gap 5 3 - 11 LAB CHEMISTRY METHOD 04/16/2025 12:49 PM [facility] Glucose 85 70 - 100 mg/dL LAB CHEMISTRY METHOD 04/16/2025 12:49 PM [facility] BUN 21 5 - 25 mg/dL LAB CHEMISTRY METHOD 04/16/2025 12:49 PM [facility] Creatinine 1.10 0.70 - 1.30 mg/dL LAB CHEMISTRY METHOD 04/16/2025 12:49 PM [facility] eGFR 70 >=60 mL/min/1. 73m2 LAB CHEMISTRY METHOD 04/16/2025 12:49 PM [facility] Comment:Calculation based on the Chronic Kidney Disease Epidemiology Collaboration (CKD-EPI) equation refit without adjustment for race. BUN/Creatinine Ratio 19.1 LAB CHEMISTRY METHOD 04/16/2025 12:49 PM [facility] Calcium 8.5 8.5 - 10.5 mg/dL LAB CHEMISTRY METHOD 04/16/2025 12:49 PM [facility] AST (SGOT) 19 10 - 42 unit/L LAB CHEMISTRY METHOD 04/16/2025 12:49 PM [facility] ALT (SGPT) 29 10 - 60 unit/L LAB CHEMISTRY METHOD 04/16/2025 12:49 PM [facility] Alkaline Phosphatase 78 42 - 121 unit/L LAB CHEMISTRY METHOD 04/16/2025 12:49 PM [facility] Total Protein 6.6 6.0 - 8.0 g/dL LAB CHEMISTRY METHOD 04/16/2025 12:49 PM EDT [facility] Albumin 2.5(L) 3.2 - 5.0 g/dL LAB CHEMISTRY METHOD 04/16/2025 12:49 PM EDT [facility] Total Bilirubin 0.3 0.0 - 1.4 mg/dL LAB CHEMISTRY METHOD 04/16/2025 12:49 PM EDT [facility] Blood Venous blood specimen / Unknown Venipuncture / Unknown 04/16/2025 7:09 AM EDT 04/16/2025 8:53 AM EDT Scott Starr MD LAB BLOOD ORDERABLES Final Result [facility] [address] [place] [address], * (ABNORMAL) Complete blood count (04/16/2025 7:09 AM EDT) WBC 13.3(H) 4.8 - 10.8 K/mcL LAB HEMETOLOGY METHOD 04/16/2025 9:35 AM [facility] RBC 4.10(L) 4.50 - 5.50 M/mcL LAB HEMETOLOGY METHOD 04/16/2025 9:35 AM EDT [facility] Hemoglobin 12.0(L) 13.5 - 17.5 g/dL LAB HEMETOLOGY METHOD 04/16/2025 9:35 AM T [facility] Hematocrit 38.2(L) 42.0 - 54.0 % LAB HEMETOLOGY METHOD 04/16/2025 9:35 AM [facility] MCV 92.5 79.0 - 98.0 FL LAB HEMETOLOGY METHOD 04/16/2025 9:35 AM EDT [facility] MCH 29.1 27.0 - 32.0 pcg LAB HEMETOLOGY METHOD 04/16/2025 9:35 AM EDT [facility] MCHC 31.4(L) 32.0 - 37.0 g/dL LAB HEMETOLOGY METHOD 04/16/2025 9:35 AM EDT [facility] RDW 14.0 11.0 - 15.0 % LAB HEMETOLOGY METHOD 04/16/2025 9:35 AM EDT [facility] Platelets 488(H) 130 - 400 K/mcL LAB HEMETOLOGY METHOD 04/16/2025 9:35 AM EDT [facility] MPV 8.7 7.0 - 11.0 FL LAB HEMETOLOGY METHOD 04/16/2025 9:35 AM EDT [facility] NRBC 0.0 <1.0 % LAB HEMETOLOGY METHOD 04/16/2025 9:35 AM EDT [facility] NRBC Absolute 0.00 <0.10 K/mcL LAB HEMETOLOGY METHOD 04/16/2025 9:35 AM EDT [facility] Blood Venous blood specimen / Unknown Venipuncture / Unknown 04/16/2025 7:09 AM EDT 04/16/2025 8:53 AM EDT Scott Starr MD LAB BLOOD ORDERABLES Final Result [facility] [address] [place] [address], documented in this encounter Visit Diagnoses Diagnosis Benign prostatic hyperplasia without lower urinary tract symptoms Urinary tract infection, site not specified documented in this encounter Care Teams Income Tax Analyst Relationship Specialty Start Date End Date Tyler Castillo MD [address] [place] [id number] PCP - General Internal Medicine 10/20/15 documented as of this encounter
--- OUTSIDE RECORDS SUMMARY | 2025-06-03 17:41 | XMS_ITS | Encounter Summary ---
Author Organization [facility] Address [address] [place] [address] Care Team Providers Care Plant Security Guard Name Role Phone Tyler Castillo MD Primary Care Provider [phone] Encounter Details Date Type Department Care Team (Late st Contact Info) Description 03/05/2025 Lab Requisition [facility] - Main Lab [address] [facility] [place] [address] Scott Starr MD 9 [place], [place] [phone] Anemia, unspecified Social History Tobacco Use Types [...] LAB CHEMISTRY METHOD 03/05/2025 11:44 AM EDT [facility] Blood Venous blood specimen / Unknown Venipuncture / Unknown 03/05/2025 7:35 AM EDT 03/05/2025 9:55 AM EDT us Scott Starr MD LAB BLOOD ORDERABLES Final Result [facility] [address] [place] [address], [place] [phone] * Magnesium (03/05/2025 7:35 AM EDT) Pathologist [facility] Magnesium 2.3 1.9 - 2.6 mg/dL LAB CHEMISTRY METHOD 03/05/2025 11:44 AM EDT [facility] Blood Venous blood specimen / Unknown Venipuncture / Unknown 03/05/2025 7:35 AM EDT 03/05/2025 9:55 AM EDT us Scott Starr MD LAB BLOOD ORDERABLES Final Result [facility] [address] [place] [address], [place] [phone] * (ABNORMAL) Comprehensive metabolic panel (03/05/2025 7:35 AM EDT) Sodium 139 133 - 145 mmol/L LAB CHEMISTRY METHOD 03/05/2025 12:05 PM EDT [facility] Potassium 4.1 3.5 - 5.5 mmol/L LAB CHEMISTRY METHOD 03/05/2025 12:05 PM EDT [facility] Chloride 105 96 - 110 mmol/L LAB CHEMISTRY METHOD 03/05/2025 12:05 PM EDT [facility] CO2 24 21 - 32 mmol/L LAB CHEMISTRY METHOD 03/05/2025 12:05 PM EDT [facility] Anion Gap 10 3 - 11 LAB CHEMISTRY METHOD 03/05/2025 12:05 PM [facility] Glucose 77 70 - 100 mg/dL LAB CHEMISTRY METHOD 03/05/2025 12:05 PM [facility] BUN 21 5 - 25 mg/dL LAB CHEMISTRY METHOD 03/05/2025 12:05 PM [facility] Creatinine 1.04 0.70 - 1.30 mg/dL LAB CHEMISTRY METHOD 03/05/2025 12:05 PM [facility] eGFR 74 >=60 mL/min/1. 73m2 LAB CHEMISTRY METHOD 03/05/2025 12:05 PM [facility] Comment:Calculation based on the Chronic Kidney Disease Epidemiology Collaboration (CKD-EPI) equation refit without adjustment for race. BUN/Creatinine Ratio 20.2 LAB CHEMISTRY METHOD 03/05/2025 12:05 PM [facility] Calcium 9.0 8.5 - 10.5 mg/dL LAB CHEMISTRY METHOD 03/05/2025 12:05 PM [facility] AST (SGOT) 15 10 - 42 unit/L LAB CHEMISTRY METHOD 03/05/2025 12:05 PM [facility] ALT (SGPT) 27 10 - 60 unit/L LAB CHEMISTRY METHOD 03/05/2025 12:05 PM [facility] Alkaline Phosphatase 89 42 - 121 unit/L LAB CHEMISTRY METHOD 03/05/2025 12:05 PM [facility] Total Protein 6.6 6.0 - 8.0 g/dL LAB CHEMISTRY METHOD 03/05/2025 12:05 PM [facility] Albumin 3.1(L) 3.2 - 5.0 g/dL LAB CHEMISTRY METHOD 03/05/2025 12:05 PM [facility] Total Bilirubin 0.4 0.0 - 1.4 mg/dL LAB CHEMISTRY METHOD 03/05/2025 12:05 PM EDT [facility] Blood Venous blood specimen / Unknown Venipuncture / Unknown 03/05/2025 7:35 AM EDT 03/05/2025 9:55 AM EDT Scott Starr MD LAB BLOOD ORDERABLES Final Result [facility] [address] [place] [address], * Complete blood count (03/05/2025 7:35 AM EDT) WBC 8.7 4.8 - 10.8 K/mcL LAB HEMETOLOGY METHOD 03/05/2025 11:06 AM [facility] RBC 4.70 4.50 - 5.50 M/mcL LAB HEMETOLOGY METHOD 03/05/2025 11:06 AM [facility] Hemoglobin 14.0 13.5 - 17.5 g/dL LAB HEMETOLOGY METHOD 03/05/2025 11:06 AM [facility] Hematocrit 42.8 42.0 - 54.0 % LAB HEMETOLOGY METHOD 03/05/2025 11:06 AM [facility] MCV 90.7 79.0 - 98.0 FL LAB HEMETOLOGY METHOD 03/05/2025 11:06 AM [facility] MCH 29.7 27.0 - 32.0 pcg LAB HEMETOLOGY METHOD 03/05/2025 11:06 AM [facility] MCHC 32.7 32.0 - 37.0 g/dL LAB HEMETOLOGY METHOD 03/05/2025 11:06 AM [facility] RDW 12.9 11.0 - 15.0 % LAB HEMETOLOGY METHOD 03/05/2025 11:06 AM [facility] Platelets 383 130 - 400 K/mcL LAB HEMETOLOGY METHOD 03/05/2025 11:06 AM EDT [facility] MPV 9.0 7.0 - 11.0 FL LAB HEMETOLOGY METHOD 03/05/2025 11:06 AM EDT [facility] NRBC 0.0 <1.0 % LAB HEMETOLOGY METHOD 03/05/2025 11:06 AM EDT [facility] NRBC Absolute 0.00 <0.10 K/mcL LAB HEMETOLOGY METHOD 03/05/2025 11:06 AM EDT [facility] Blood Venous blood specimen / Unknown Venipuncture / Unknown 03/05/2025 7:35 AM EDT 03/05/2025 9:55 AM EDT Scott Starr MD LAB BLOOD ORDERABLES Final Result [facility] [address] [place] [address], documented in this encounter Visit Diagnoses Diagnosis Anemia, unspecified documented in this encounter Additional Health Concerns Infection Onset Date Last Indicated Resolved Time C. difficile Rule-Out 04/04/2025 04/04/20252024 12:46 PM EDT documented as of this encounter Care Teams Plant Security Guard Relationship Specialty Start Date End Date Tyler Castillo MD [address] [place] [address] PCP - General Internal Medicine 10/20/15 documented as of this encounter
--- OUTSIDE RECORDS SUMMARY | 2025-06-03 17:41 | XMS_ITS | Encounter Summary ---
Author Organization [facility] Address [address] [place] [address] Care Team Providers Care Senior Manufacturing Test Engineer Name Role Phone Tyler Castillo MD Primary Care Provider [phone] Encounter Details Date Type Department Care Team (Late st Contact Info) Description 04/23/2025 Lab Requisition [facility] - Main Lab [address] [facility] [email or web address] [address] Scott Starr MD 9 [place], [place] [phone] Anemia, unspecified; Acute kidney failure, unspecified (CMS/HCC [...] mmol/L LAB CHEMISTRY METHOD 04/23/2025 10:03 AM [facility] Potassium 4.4 3.5 - 5.5 mmol/L LAB CHEMISTRY METHOD 04/23/2025 10:03 AM [facility] Chloride 107 96 - 110 mmol/L LAB CHEMISTRY METHOD 04/23/2025 10:03 AM [facility] CO2 28 21 - 32 mmol/L LAB CHEMISTRY METHOD 04/23/2025 10:03 AM [facility] Anion Gap 4 3 - 11 LAB CHEMISTRY METHOD 04/23/2025 10:03 AM [facility] Glucose 74 70 - 100 mg/dL LAB CHEMISTRY METHOD 04/23/2025 10:03 AM [facility] BUN 18 5 - 25 mg/dL LAB CHEMISTRY METHOD 04/23/2025 10:03 AM [facility] Creatinine 1.09 0.70 - 1.30 mg/dL LAB CHEMISTRY METHOD 04/23/2025 10:03 AM [facility] eGFR 70 >=60 mL/min/1. 73m2 LAB CHEMISTRY METHOD 04/23/2025 10:03 AM [facility] Comment:Calculation based on the Chronic Kidney Disease Epidemiology Collaboration (CKD-EPI) equation refit without adjustment for race. BUN/Creatinine Ratio 16.5 LAB CHEMISTRY METHOD 04/23/2025 10:03 AM [facility] Calcium 9.1 8.5 - 10.5 mg/dL LAB CHEMISTRY METHOD 04/23/2025 10:03 AM [facility] Blood Venous blood specimen / Unknown Venipuncture / Unknown 04/23/2025 7:12 AM EDT 04/23/2025 9:11 AM EDT us Scott Starr MD LAB BLOOD ORDERABLES Final Result [facility] [address] [place] [address], [place] [phone] * (ABNORMAL) Complete blood count (04/23/2025 7:12 AM EDT) [facility] WBC 8.9 4.8 - 10.8 K/mcL LAB HEMETOLOGY METHOD [facility]/23[facility]25 [facility] RBC 4.10(L) 4.50 - 5.50 M/mcL LAB HEMETOLOGY METHOD 04/23/2025 9:48 AM EDT [facility] Hemoglobin 12.0(L) 13.5 - 17.5 g/dL LAB HEMETOLOGY METHOD 04/23/2025 9:48 AM T [facility] Hematocrit 37.6(L) 42.0 - 54.0 % LAB HEMETOLOGY METHOD 04/23/2025 9:48 AM [facility] MCV 91.0 79.0 - 98.0 FL LAB HEMETOLOGY METHOD 04/23/2025 9:[facility] MCH 29.1 27.0 - 32.0 pcg LAB HEMETOLOGY METHOD 04/23/2025 9:48 AM [facility] MCHC 31.9(L) 32.0 - 37.0 g/dL LAB HEMETOLOGY METHOD 04/23/2025 9:48 AM [facility] RDW 14.4 11.0 - 15.0 % LAB HEMETOLOGY METHOD 04/23/2025 9:48 [facility] Platelets 437(H) 130 - 400 K/mcL LAB HEMETOLOGY METHOD 04/23/2025 9:48 AM EDT [facility] MPV 8.8 7.0 - 11.0 FL LAB HEMETOLOGY METHOD 04/23/2025 9:48 [facility] NRBC 0.0 <1.0 % LAB HEMETOLOGY METHOD 04/23/2025 9:48 AM EDT [facility] NRBC Absolute 0.00 <0.10 K/mcL LAB HEMETOLOGY METHOD 04/23/2025 9:48 AM EDT [facility] Blood Venous blood specimen / Unknown Venipuncture / Unknown 04/23/2025 7:12 AM EDT 04/23/2025 9:11 AM EDT us Scott Starr MD LAB BLOOD ORDERABLES Final Result [facility] [address] [place] [address], documented in this encounter Visit Diagnoses Diagnosis Anemia, unspecified Acute kidney failure, unspecified (CMS/HCC V24) Acute kidney failure, unspecified documented in this encounter Care Teams Senior Manufacturing Test Engineer Relationship Specialty Start Date End Date Tyler Castillo MD [address] [place] [address] PCP - General Internal Medicine 10/20/15 documented as of this encounter
--- OUTSIDE RECORDS SUMMARY | 2025-06-03 17:41 | XMS_ITS | Encounter Summary ---
Author Organization [facility] Address [address] [place] [address] Care Team Providers Care Intermediate Accountant Name Role Phone Tyler Castillo MD Primary Care Provider Encounter Details Date Type Department Care Team (Late st Contact Info) Description 04/11/2025 Lab Requisition [facility] - Main Lab [address] [place] [address] Scott Starr MD [address] [place], [place] [phone] Anemia, unspecified; Other malaise Social History Tobacco [...] LAB CHEMISTRY METHOD 04/11/2025 10:12 AM EDT [facility] Potassium 3.8 3.5 - 5.5 mmol/L [...] Starr MD LAB BLOOD ORDERABLES Final Result [facility] [address] [place] [address], * (ABNORMAL) Complete blood count (04/11/2025 4:58 AM EDT) [facility] Signature WBC 18.4(H) 4.8 - 10.8 K/mcL [...] LAB HEMETOLOGY METHOD 04/11/2025 9:41 AM EDT [facility] ([facility] Blood Venous blood specimen / Unknown Venipuncture / Unknown 04/11/2025 4:58 AM EDT 04/11/2025 9:25 AM EDT us Scott Starr MD LAB BLOOD ORDERABLES Final Result [facility] [address] [place] [address], documented in this encounter Visit Diagnoses Diagnosis Anemia, unspecified Other malaise documented in this encounter Care Teams Intermediate Accountant Relationship Specialty Start Date End Date Tyler Castillo MD [address] [place] [address] PCP - General Internal Medicine 10/20/15 documented as of this encounter
--- OUTSIDE RECORDS SUMMARY | 2025-06-03 17:41 | XMS_ITS | Encounter Summary ---
Author Organization [facility] Address [address] [place] [address] Care Team Providers Care Fine Artist Name Role Phone Tyler Castillo MD Primary Care Provider [phone] Encounter Details Date Type Department Care Team (Late st Contact Info) Description 03/11/[address] [facility] - Main Lab [address] [facility] [place] [address] Scott Starr MD [address] [place], [place] [phone] Anemia, unspecified Social History Tobacco Use Types [...] LAB CHEMISTRY METHOD 03/12/2025 11:29 AM EDT [facility] Blood Venous blood specimen / Unknown Venipuncture / Unknown 03/12/2025 7:13 AM EDT 03/12/2025 10:31 AM EDT us Scott Starr MD LAB BLOOD ORDERABLES Final Result Performing Organization Address [facility]/ZIP Co de Phone Number [facility] [address] [place] [address], [place] [phone] * Magnesium (03/12/2025 7:13 AM EDT) Pathologist [facility] Magnesium 2.3 1.9 - 2.6 mg/dL LAB CHEMISTRY METHOD 03/12/2025 11:29 AM EDT [facility] Comment:Hemolysis present Blood Venous blood specimen / Unknown Venipuncture / Unknown 03/12/2025 7:13 AM EDT 03/12/2025 10:31 AM EDT us Scott Starr MD LAB BLOOD ORDERABLES Final Result Performing Organization Address [facility] de Phone Number [facility] [address] [place] [address], [place] [phone] * Basic metabolic panel (03/12/2025 7:13 AM EDT) Sodium 136 133 - 145 mmol/L LAB CHEMISTRY METHOD 03/12/2025 11:29 AM EDT [facility] Potassium 4.7 3.5 - 5.5 mmol/L LAB CHEMISTRY METHOD 03/12/2025 11:29 AM EDT [facility] Comment:Hemolysis present Chloride 104 96 - 110 mmol/L LAB CHEMISTRY METHOD 03/12/2025 11:29 AM EDT [facility] CO2 26 21 - 32 mmol/L LAB CHEMISTRY METHOD 03/12/2025 11:29 AM EDT [facility] Anion Gap 6 3 - 11 LAB CHEMISTRY METHOD 03/12/2025 11:29 AM [facility] Glucose 72 70 - 100 mg/dL LAB CHEMISTRY METHOD 03/12/2025 11:29 AM [facility] BUN 19 5 - 25 mg/dL LAB CHEMISTRY METHOD 03/12/2025 11:29 AM [facility] Creatinine 1.02 0.70 - 1.30 mg/dL LAB CHEMISTRY METHOD 03/12/2025 11:29 AM [facility] eGFR 76 >=60 mL/min/1. 73m2 LAB CHEMISTRY METHOD 03/12/2025 11:29 AM [facility] Comment:Calculation based on the Chronic Kidney Disease Epidemiology Collaboration (CKD-EPI) equation refit without adjustment for race. BUN/Creatinine Ratio 18.6 LAB CHEMISTRY METHOD 03/12/2025 11:29 AM [facility] Calcium 8.9 8.5 - 10.5 mg/dL LAB CHEMISTRY METHOD 03/12/2025 11:29 AM [facility] Blood Venous blood specimen / Unknown Venipuncture / Unknown 03/12/2025 7:13 AM EDT 03/12/2025 10:31 AM EDT Scott Starr MD LAB BLOOD ORDERABLES Final Result [facility] [address] [place] [address], * Complete blood count (03/12/2025 7:13 AM EDT) WBC 9.0 4.8 - 10.8 K/mcL LAB HEMETOLOGY METHOD 03/12/2025 11:08 AM EDT [facility] RBC 4.70 4.50 - 5.50 M/mcL LAB HEMETOLOGY METHOD 03/12/2025 11:08 AM [facility] Hemoglobin 14.1 13.5 - 17.5 g/dL LAB HEMETOLOGY METHOD 03/12/2025 11:08 AM [facility] Hematocrit 43.1 42.0 - 54.0 % LAB HEMETOLOGY METHOD 03/12/2025 11:08 AM [facility] MCV 92.3 79.0 - 98.0 FL LAB HEMETOLOGY METHOD 03/12/2025 11:08 AM [facility] MCH 30.2 27.0 - 32.0 pcg LAB HEMETOLOGY METHOD 03/12/2025 11:08 AM [facility] MCHC 32.7 32.0 - 37.0 g/dL LAB HEMETOLOGY METHOD 03/12/2025 11:08 AM [facility] RDW 13.4 11.0 - 15.0 % LAB HEMETOLOGY METHOD 03/12/2025 11:08 AM [facility] Platelets 339 130 - 400 K/mcL LAB HEMETOLOGY METHOD 03/12/2025 11:08 AM [facility] MPV 9.2 7.0 - 11.0 FL LAB HEMETOLOGY METHOD 03/12/2025 11:08 AM [facility] NRBC 0.0 <1.0 % LAB HEMETOLOGY METHOD 03/12/2025 11:08 AM [facility] NRBC Absolute 0.00 <0.10 K/mcL LAB HEMETOLOGY METHOD 03/12/2025 11:08 AM [facility] Blood Venous blood specimen / Unknown Venipuncture / Unknown 03/12/2025 7:13 AM EDT 03/12/2025 10:31 AM EDT Scott Starr MD LAB BLOOD ORDERABLES Final Result [facility] [address] [place] [address], documented in this encounter Visit Diagnoses Diagnosis Anemia, unspecified documented in this encounter Additional Health Concerns Infection Onset Date Last Indicated Resolved Time C. difficile Rule-Out 04/04/2025 04/04/20252024 12:46 PM EDT documented as of this encounter Care Teams Fine Artist Relationship Specialty Start Date End Date Tyler Castillo MD [address] [place] [address] PCP - General Internal Medicine 10/20/15 documented as of this encounter
== END 2025-06-03 16:08 | disposition home or self-care (01) ==
LOC: HO.HPS 15:38
PROVIDERS: PCP Internal Medicine Medical Oncology; Visit Provider Hospitalist
DX: R91.1 Solitary pulmonary nodule (principal); J44.1 Chronic obstructive pulmonary disease with (acute) exacerbation; R06.00 Dyspnea, unspecified
CPT/HCPCS: 99214; G2211

== ENCOUNTER 2025-06-03 15:37 | Outpatient (REF) | payer MEDICARE, MEDICAID, SELFPAY ==
[2025-06-03 16:37] LABS: MANUAL DIFF FLAG NO
[2025-06-03 17:17] LABS: Hematocrit 40.3 % (42.0-52.0); Hemoglobin 13.2 g/dl (14.0-18.0); Imm Gran Abs Auto 0.05 X10*3/uL (0.00-0.03); Imm Gran Pct Auto 0.4 % (0.0-0.4); Lymphocytes Absolute Auto 1.5 X10*3/uL (1.2-4.9); Mean Corpuscular HGB Conc 32.8 g/dl (31.0-36.0); Mean Corpuscular Hemoglobin 29.7 pg (27.0-33.0); Mean Corpuscular Volume 90.8 fL (80.0-98.0); NRBC Abs Auto 0.000 X10*3/uL (0.0-0.012); NRBC Pct Auto 0.0 /100WBC (0.0-0.2); Platelet Count 366 X10*3/uL (160-400); Red Blood Count 4.44 X10*6/uL (4.60-5.80); White Blood Count 13.1 X10*3/uL (4.8-10.8)
[2025-06-03 18:19] LABS: Alanine Aminotransferase 17 U/L (0-40); Albumin Level 4.1 g/dL (3.5-5.0); Alkaline Phosphatase 86 U/L (39-117); Anion Gap 13 (12-20); Aspartate Amino Transferase 20 U/L (5-37); Blood Urea Nitrogen 32 mg/dL (9-16); Calcium 10.0 mg/dL (8.4-10.2); Carbon Dioxide 26 mmol/L (22-29); Chloride 109 mmol/L (96-108); Cholesterol 190 mg/dL (<200); Estimated Glomerular Filt Rate > 60; HDL Cholesterol 40 mg/dL (>40); Potassium 4.6 mmol/L (3.3-5.1); Sodium 143 mmol/L (135-145); Total Protein 7.6 g/dL (6.5-8.0); Triglycerides 104 mg/dL (<150)
[2025-06-04 12:08] LABS: Free Prostate Spec Ag 0.3 ng/mL; Percent Free Prostate Spec Ag 6 % (calc) (>25)
== END 2025-06-03 15:38 | disposition home or self-care (01) ==
LOC: HO.LAB 15:37
PROVIDERS: Absent Provider Internal Medicine Medical Oncology; PCP Internal Medicine Medical Oncology; Visit Provider Hospitalist
DX: J44.1 Chronic obstructive pulmonary disease with (acute) exacerbation (principal); R91.1 Solitary pulmonary nodule; R06.00 Dyspnea, unspecified; Z79.899 Other long term (current) drug therapy; Z87.891 Personal history of nicotine dependence
CPT/HCPCS: 36415; 80053; 80061; 84154; 85025; 99212

== ENCOUNTER → 2025-06-19 12:39 | Outpatient (BNVA) | payer MEDICARE, SELFPAY | PROVIDERS: PCP Internal Medicine Medical Oncology; Visit Provider Urology | DX: Z46.6 Encounter for fitting and adjustment of urinary device (principal); N40.1 Benign prostatic hyperplasia with lower urinary tract symptoms; R33.8 Other retention of urine | CPT/HCPCS: 51702 ==

== ENCOUNTER 2025-07-10 17:19 | Inpatient (IN) | payer MEDICARE, SELFPAY ==
--- OUTSIDE RECORDS SUMMARY | 2025-04-26 09:30 | XMS_ITS ---
Author Organization Thaddeus Oreilly III, MD Address [address] [place] [address] DR SAEED Yakelin [place] [id number] Care Team Providers Care Manager Adult Name Role Phone Dr. Thaddeus Oreilly III Primary Care Provider Allergies Allergen (clinical drug ingredient) Drug/Non Drug Allergy documented on EMR Reaction Allergy Type Onset Date Status No Known Drug Allergy Unknown Drug Allergy Active REASON FOR VISIT Benign prostatic hypertrophy, Hospitalization February 22, 2025 for urine retention, GERD, COPD Medications Medication SIG (Take, Route, Frequency, Duration) Notes Start Date End Date Status Albuterol Sulfate (2.5 MG/3ML) 0.083% INHALE 3 ML TWICE DAILY WITH NEBULIZER Inhalation Active Roflumilast 500 MCG 1 tablet Orally Once a day Active Montelukast Sodium 10 MG TAKE 1 TABLET B Y MOUTH AT BEDTIME Diagnosis Unavailable Oral Active Ventolin HFA 108 (90 Base) MCG/ACT INHALE 2 PUFFS INTO THE LUNGS EVERY 6 HOURS Active Omeprazole 20 MG TAKE 1 CAPSULE BY [facility] EVERY DAY 30 MINUTES BEFORE BREAKFAST Active Social History Tobacco Use: Social History Observation Description Date Details (start date - stop date) Former Smoker NA - NA Sex Assigned At : Social History Observation Description Sex Assigned At Male Tobacco Control (Standard) Question Answer Notes Tobacco use: Former smoker How long has it been since you last smoked? Francia ter than 10 years Additional Findings: Tobacco non-user Ex-cigaret te smoker Vital Signs Temperature 97.2 degrees Fahrenheit 04/26/20 25 Blood pressure systolic 107 mm Hg 04/26/20 25 Blood pressure diastolic 63 mm Hg 08/22/2 025 Heart Rate 99 /min 04/26/2025 Height 74 in 04/26/2025 Weight 200 lbs 04/26/2025 BMI 25.68 kg/m2 04/26/2025 Encounters Encounter Location Date Provider Diagnosis Thaddeus Oreilly III, MD [address] [place] [address] [place] [address] 04/26/2025 Thaddeus Oreilly Chronic obstructive pulmonary disease, unspecified COPD type J44.9 ; Urine retention R33.9 ; Former smoker Z87.891 ; Overweight (BMI 25.0-29.9) E66.3 and Benign prostatic hypertrophy N40.0 Assessments Encounter Date Diagnosis (ICD Code) Assessment Notes Treatment Notes Treatment Clinical Notes 04/26/2025 Chronic obstructive pulmonary disease, unspecified COPD type (ICD-10 - J44.9) He will continue to see the accounting system expert regularly. The 6 mm pulmonary nodule will be followed carefully. He is no longer smoking. He will exercise regularly. He will continue to use his nebulizer and his new inhaler. 04/26/2025 Urine retention (ICD-10 - R33.9) He was acutely ill and was taken to the emergency room at [facility] across the street from my office he was evaluated and subsequently admitted to the hospital.He was discharged after 6 days and spent 2 months in rehabilitation and is now living at home alone with nursing support. He has an indwelling Mojica catheter in place. He will see urology next week for an outpatient voiding trial. 04/26/2025 Former smoker (ICD-10 - Z87.891) He is highly motivated not to smoke. We discussed a plan to prevent relapse in times of stress and illness. 04/26/2025 Overweight (BMI 25.0-29.9) (ICD-10 - E66.3) He is now overweight with a body mass index of 25.68. We discussed his weight loss strategy and I reinforced continued weight loss through diet restricted in fat calories and sodium. 04/26/2025 Benign prostatic hypertrophy (ICD-10 - N40.0) He recently became unable to sleep and has overflow incontinence with a massively distended bladder. He has been hospitalized. Plan Of Treatment Medication Medication Name Sig Start Date Stop Date Notes Albuterol Sulfate (2.5 MG/3ML) 0.083% INHALE 3 ML TWICE DAILY WITH NEBULIZER Inhalation Roflumilast 500 MCG 1 tablet Orally Once a day Montelukast Sodium 10 MG TAKE 1 TABLET B Y MOUTH AT BEDTIME Diagnosis Unavailable Oral Ventolin HFA 108 (90 Base) MCG/ACT INHALE 2 PUFFS INTO THE LUNGS EVERY 6 HOURS Omeprazole 20 MG TAKE 1 CAPSULE BY [facility] EVERY DAY 30 MINUTES BEFORE BREAKFAST Next Appt Details Follow Up: 3 Weeks, Reason: ov Provider Name:Thaddeus Gaytan Denilson , 07/24/2025 03:15:00 PM, [address] [place] [address] [address], [place], [phone], Provider Name:Thaddeus Gaytan Denilson , 11/06/2025 03:00:00 PM, [address] [place] [address] [address], [place], [phone], Progress Notes * CURT WOODSDOB:1950 (74 yo M)Acc No.[id number]:04/26/2025 Patient: Asa BÁRBARACURT Provider: Roddy Oreilly MD :1950 A ge:74 Y S ex:Male Date:04/26/2025 Address:[address] [place] [id number] Subjective: * Chief Complaints: * B enign prostatic hypertrophyHospitalization February 22, 2025 for urine retentionGERDCOPD * HPI: C OVID-19 Screening: Taina gaytan was admitted to [facility] from February 22 [place] February 28, 2025 and then spent several months in rehabilitation. He is now at home and comes in for follow-up. He was seen in the hospital by Dr. Lindsey of urology who recommended a Mojica catheter for 4 weeks followed by an outpatient voiding trial, on alpha-jorge and finasteride. He has been compliant with these medications. He has an appointment next week to see urology. He has a nurse coming once a week. He lives alone at home with her cat. He has lost 28 pounds since his last visit here. Questions H ave you had any new onset fever, chills, cough, congestion, sore throat, shortness of breath, muscle aches? N o * ROS: G eneral/Constitutional: pain o nly normal aches and pains. C hills d enies.?Fatigue a dmits. F ever d enies. E NT: Decreased hearing d enies. R espiratory: Cough d enies. C ardiovascular: Chest pain with exertion d enies. D yspnea on exertion?denies. S hortness of breath d enies. G astrointestinal: Constipation o ccasional. D ecreased appetite t hat is associated with weight loss. D iarrhea d enies. H eartburn d enies. N ausea?denies. R ectal bleeding d enies. V omiting d enies. H ematology: bruising d enies. p etechiae d enies. S wollen glands n one have been noted. G enitourinary: Frequent urination H as a Mojica catheter in place. ? M usculoskeletal: Muscle aches d enies. P ainful joints d enies. S ciatica d enies. W eakness d enies. S kin: Itching d enies. R dago d enies. S kin lesion(s)?denies. N eurologic: Difficulty speaking d enies. D izziness d enies.?Headache d enies. L ow back pain d enies. P sychiatric: Depressed mood d enies. * Medical History: * Surgical History: a ppendectomy age 7No history * Hospitalization/Major Diagno stic Procedure: N o history * Family History: F ather: 60 yrs, Head and neck cancer, diagnosed with Cancer. M other: 60 yrs, rheumatic heard disease, arthritis, diabetes mellitus, diagnosed with DM. S iblings: alive, kidney problems, diagnosed with DM. 3 brother(s) , 2 sister(s) . . His brothers all had renal disorders and have . One sister, Jane, donated a kidney to her brother. He has no children. He is not aware of any family history of addiction other than smoking. He is not aware of any family history of substance abuse or mental illness. * Social History: T obacco Use: T obacco Control (Standard) T obacco use: F ormer smoker H ow long has it been since you last smoked??Greater than 10 years A dditional Findings: Tobacco non-user E x-cigarette smoker Taina gaytan was born and raised in [facility]. 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 His father was a environmental professional. * Medications: T akingVentolin HFA 108 (90 Base) MCG/ACT Aerosol Solution INHALE 2 PUFFS INTO THE LUNGS EVERY 6 HOURS Omeprazole 20 MG Capsule Delayed Release TAKE 1 CAPSULE BY MOUTH EVERY DAY 30 MINUTES BEFORE BREAKFAST Roflumilast 500 MCG Tablet 1 tablet Orally Once a day Montelukast Sodium 10 MG Tablet TAKE 1 TABLET BY MOUTH AT BEDTIME Diagnosis Unavailable Oral Albuterol Sulfate (2.5 MG/3ML) 0.083% Nebulization Solution INHALE 3 ML TWICE DAILY WITH NEBULIZER Inhalation Medication List reviewed and reconciled with the patientTaking Ventolin HFA 108 (90 Base) MCG/ACT Aerosol Solution INHALE 2 PUFFS INTO THE LUNGS EVERY 6 HOURS Taking Omeprazole 20 MG Capsule Delayed Release TAKE 1 CAPSULE BY MOUTH EVERY DAY 30 MINUTES BEFORE BREAKFAST Taking Roflumilast 500 MCG Tablet 1 tablet Orally Once a day Taking Montelukast Sodium 10 MG Tablet TAKE 1 TABLET BY MOUTH AT BEDTIME Diagnosis Unavailable Oral Taking Albuterol Sulfate (2.5 MG/3ML) 0.083% Nebulization Solution INHALE 3 ML TWICE DAILY WITH NEBULIZER Inhalation Medication List reviewed and reconciled with the patient * Allergies: N o Known Drug Allergyno[Allergies Verified] Objective: * Vitals: H t: 74, Wt:200, BMI:25.68, BP:107/63, HR:99, Temp:97.2, Wt-k.72. * P ast Orders: L ab:Lactic Acid (Order Date - 02/22/2025) (Collection Date & Time - 02/22/2025 06:32 PM) Value Reference Range Lactic Acid 1.0 0.5-2.0 - mmol/L L ab:UA ClnCatch+Micro w/rflx Cult (Order Date - 02/22/2025) (Collection Date & Time - 02/22/2025 06:33 PM) Value Reference Range Color Urine Yellow - Appearance Urine Clear - PH 5.0 5.0-9.0 - Glucose Urine UA Negative Negative - mg/dL Urine Blood Small (1+) A Negative - Specific [place] - Urine 1.020 1.005-1.025 - Urine Protein Negative Neg-Trace - mg/dL Urine Ketones Trace Negative - mg/dL Nitrite Urine Negative Negative - Leukocyte Esterase Urine Moderate (2+) A Negative - RBC Urine 6-10 A 0-2 - /HPF WBC Urine 11-20 A 0-5 - /HPF Squamous Epithelial Cell Urine 0-2 0-2 - /HP F Bacteria Urine None Seen None Seen - Hyaline Casts Urine 0-2 0-2 - /LPF Lab:Basic Metabolic Panel * Collection Date 02/27/2025 02/26/2025 02/25/2025 02/25/2025 02/24/2025 02/22/2025 Collection Time 07:00 AM 05:56 AM 03:47 PM 08:44 AM 08:23 AM 06:32 PM Order Date 02/27/2025 02/26/2025 02/25/2025 02/25/2025 02/22/2025 Sodium 142 (Ref Range: 135-145 mmol/L) 142 (Ref Range: 135-145 mmol/L) 139 (Ref Range: 135-145 mmol/L) 139 (Ref Range: 135-145 mmol/L) 143 (Ref Range: 135-145 mmol/L) 142 (Ref Range: 135-145 mmol/L) Blood Urea Nitrogen 10 (Ref Range: 9-16 mg/dL) 10 (Ref Range: 9-16 mg/dL) 13 (Ref Range: 9-16 mg/dL) 9 (Ref Range: 9-16 mg/dL) 21 H (Ref Range: 9-16 mg/dL) 73 H (Ref Range: 9-16 mg/dL) Creatinine 0.83 (Ref Range: 0.5-1.4 mg/dL) 0.86 (Ref Range: 0.5-1.4 mg/dL) 1.06 (Ref Range: 0.5-1.4 mg/dL) 1.03 (Ref Range: 0.5-1.4 mg/dL) 1.00 (Ref Range: 0.5-1.4 mg/dL) 2.89 H (Ref Range: 0.5-1.4 mg/dL) Glucose Random 105 (Ref Range: 60-115 mg/dL) 145 H (Ref Range: 60-115 mg/dL) 122 H (Ref Range: 60-115 mg/dL) 151 H (Ref Range: 60-115 mg/dL) 137 H (Ref Range: 60-115 mg/dL) 91 (Ref Range: 60-115 mg/dL) Calcium 8.5 (Ref Range: 8.4-10.2 mg/dL) 8.1 L (Ref Range: 8.4-10.2 mg/dL) 7.9 L (Ref Range: 8.4-10.2 mg/dL) 7.8 L (Ref Range: 8.4-10.2 mg/dL) 7.7 L (Ref Range: 8.4-10.2 mg/dL) 9.9 (Ref Range: 8.4-10.2 mg/dL) Potassium 4.1 (Ref Range: 3.3-5.1 mmol/L) 3.6 (Ref Range: 3.3-5.1 mmol/L) 4.1 (Ref Range: 3.3-5.1 mmol/L) 3.0 L (Ref Range: 3.3-5.1 mmol/L) 3.4 (Ref Range: 3.3-5.1 mmol/L) 4.5 (Ref Range: 3.3-5.1 mmol/L) Chloride 106 (Ref Range: 96-108 mmol/L) 107 (Ref Range: 96-108 mmol/L) 104 (Ref Range: 96-108 mmol/L) 105 (Ref Range: 96-108 mmol/L) 107 (Ref Range: 96-108 mmol/L) 109 H (Ref Range: 96-108 mmol/L) Carbon Dioxide 27 (Ref Range: 22-29 mmol/L) 26 (Ref Range: 22-29 mmol/L) 25 (Ref Range: 22-29 mmol/L) 23 (Ref Range: 22-29 mmol/L) 25 (Ref Range: 22-29 mmol/L) 20 L (Ref Range: 22-29 mmol/L) Anion Gap 13 (Ref Range: 12-20) 13 (Ref Range: 12-20) 14 (Ref Range: 12-20) 14 (Ref Range: 12-20) 14 (Ref Range: 12-20) 18 (Ref Range: 12-20) Estimated Glomerular Filt Rate > 60 > 60 > 60 > 60 > 60 21 Creatinine Clr Calc Pharmacy 88.0 84.9 68.9 70.9 73.0 25.2 ???Lab:Blood Culture (Second) (Order Date - 02/22/2025) (Collection Date & Time - 02/22/2025 06:32PM)?ValueReference Range?Blood Culture (Second) No growth after 5 days.- ???Lab:Liver Panel (Order Date - 02/22/2025) (Collection Date & Time - 02/22/2025 06:32 PM)?ValueReference Range?Bilirubin Total0.60.0- 1.0 - mg/dL?Bilirubin Direct0.30.0-0.5 - mg/dL?Aspartate Amino Njjtkmxqbzd061-01 - U/L?Alanine Zabqkdcdwcqcadam153-43 - U/L?Total Protein7.46.5-8.0 - g/dL?Albumin Level4.33.5-5.0 - g/dL?Alkaline [id number] - U/L ???Lab:Blood Culture (First) (Order Date - 02/22/2025) (Collection Date & Time - 02/22/2025 06:32 PM)?ValueReference Range?Blood Culture (First)No growth after 5 days.- * Lab:Complete Blood Count Aut o Diff * Collection Date 02/23/2025 02/22/2025 10/31/2024 Collection Time 06:25 AM 06:32 PM 11:34 AM Order Date 02/23/2025 02/22/2025 10/31/2024 White Blood Count 11.8 H (Ref Range: 4.8-10.8 X10*3/uL) 15.3 H (Ref Range: 4.8-10.8 X10*3/uL) 7.8 (Ref Range: 4.8-10.8 X10*3/uL) Red Blood Count 4.29 L (Ref Range: 4.60-5.80 X10*6/uL) 4.91 (Ref Range: 4.60-5.80 X10*6/uL) 5.26 (Ref Range: 4.60-5.80 X10*6/uL) Hemoglobin 13.1 L (Ref Range: 14.0-18.0 g/dl) 15.1 (Ref Range: 14.0-18.0 g/dl) 16.0 (Ref Range: 14.0-18.0 g/dl) Hematocrit 38.6 L (Ref Range: 42.0-52.0 %) 43.8 (Ref Range: 42.0-52.0 %) 48.1 (Ref Range: 42.0-52.0 %) Mean Corpuscular Volume 90.0 (Ref Range: 80.0-98.0 fL) 89.2 (Ref Range: 80.0-98.0 fL) 91.4 (Ref Range: 80.0-98.0 fL) Mean Corpuscular Hemoglobin 30.5 (Ref Range: 27.0-33.0 pg) 30.8 (Ref Range: 27.0-33.0 pg) 30.4 (Ref Range: 27.0-33.0 pg) Mean Corpuscular HGB Conc 33.9 (Ref Range: 31.0-36.0 g/dl) 34.5 (Ref Range: 31.0-36.0 g/dl) 33.3 (Ref Range: 31.0-36.0 g/dl) Red Cell Distribution Width 13.7 (Ref Range: 11.0-16.0 %) 13.7 (Ref Range: 11.0-16.0 %) 13.5 (Ref Range: 11.0-16.0 %) Platelet Count 203 (Ref Range: 160-400 X10*3/uL) 226 (Ref Range: 160-400 X10*3/uL) 283 (Ref Range: 160-400 X10*3/uL) Mean Platelet Volume 9.4 (Ref Range: 9.4-12.4 fL) 9.0 L (Ref Range: 9.4-12.4 fL) 9.0 L (Ref Range: 9.4-12.4 fL) Neutrophils Percent Auto 77.6 H (Ref Range: 45-73 %) 84.7 H (Ref Range: 45-73 %) 72.2 (Ref Range: 45-73 %) Imm Gran Pct Auto 0.3 (Ref Range: 0.0-0.4 %) 0.5 H (Ref Range: 0.0-0.4 %) 0.3 (Ref Range: 0.0-0.4 %) Lymphocytes Percent Auto 8.0 L (Ref Range: 20-40 %) 5.2 L (Ref Range: 20-40 %) 14.2 L (Ref Range: 20-40 %) Monocytes Percent Auto 11.2 H (Ref Range: 2-11 %) 8.8 (Ref Range: 2-11 %) 11.5 H (Ref Range: 2-11 %) Eosinophils Percent Auto 2.3 (Ref Range: 0-4 %) 0.3 (Ref Range: 0-4 %) 1.0 (Ref Range: 0-4 %) Basophils Percent Auto 0.6 (Ref Range: 0-2 %) 0.5 (Ref Range: 0-2 %) 0.8 (Ref Range: 0-2 %) NRBC Pct Auto 0.0 (Ref Range: 0.0-0.2 /100WBC) 0.0 (Ref Range: 0.0-0.2 /100WBC) 0.0 (Ref Range: 0.0-0.2 /100WBC) Neutrophils Absolute Auto 9.1 H (Ref Range: 2.0-8.3 x10*3/uL) 13.0 H (Ref Range: 2.0-8.3 x10*3/uL) 5.7 (Ref Range: 2.0-8.3 x10*3/uL) Imm Gran Abs Auto 0.04 H (Ref Range: 0.00-0.03 X10*3/uL) 0.07 H (Ref Range: 0.00-0.03 X10*3/uL) 0.02 (Ref Range: 0.00-0.03 X10*3/uL) Lymphocytes Absolute Auto 0.9 L (Ref Range: 1.2-4.9 X10*3/uL) 0.8 L (Ref Range: 1.2-4.9 X10*3/uL) 1.1 L (Ref Range: 1.2-4.9 X10*3/uL) Monocytes Absolute Auto 1.3 H (Ref Range: 0.1-1.2 X10*3/uL) 1.4 H (Ref Range: 0.1-1.2 X10*3/uL) 0.9 (Ref Range: 0.1-1.2 X10*3/uL) Eosinophils Absolute Auto 0.3 (Ref Range: 0.0-0.4 X10*3/uL) 0.0 (Ref Range: 0.0-0.4 X10*3/uL) 0.1 (Ref Range: 0.0-0.4 X10*3/uL) Basophils Absolute Auto 0.1 (Ref Range: 0.0-0.2 X10*3/uL) 0.1 (Ref Range: 0.0-0.2 X10*3/uL) 0.1 (Ref Range: 0.0-0.2 X10*3/uL) NRBC Abs Auto 0.000 (Ref Range: 0.0-0.012 X10*3/uL) 0.000 (Ref Range: 0.0-0.012 X10*3/uL) 0.000 (Ref Range: 0.0-0.012 X10*3/uL) ???Lab:Urine Culture (Order Date - 02/22/2025) (Collection Date & Time - 02/22/2025 07:52 PM)?ValueReference Range?Urine CultureNo growth.- * Lab:Magnesium * Collection Date 02/27/2025 02/26/2025 02/25/2025 02/25/2025 02/24/2025 02/22/2025 Collection Time 07:00 AM 05:56 AM 03:47 PM 08:44 AM 08:23 AM 06:32 PM Order Date 02/27/2025 02/26/2025 02/25/2025 02/25/2025 02/22/2025 Magnesium 1.9 (Ref Range: 1.6-2.6 mg/dL) 1.4 LL (Ref Range: 1.6-2.6 mg/dL) 1.7 (Ref Range: 1.6-2.6 mg/dL) 1.4 LL (Ref Range: 1.6-2.6 mg/dL) 1.2 LL (Ref Range: 1.6-2.6 mg/dL) 2.3 (Ref Range: 1.6-2.6 mg/dL) * Lab:Comprehensive Met. Panel * Collection Date 02/23/2025 08/10/2024 Collection Time 06:25 AM 01:10 PM Order Date 02/23/2025 08/10/2024 Sodium 143 (Ref Range: 135-145 mmol/L) 139 (Ref Range: 135-145 mmol/L) Bilirubin Total 0.6 (Ref Range: 0.0-1.0 mg/dL) 0.6 (Ref Range: 0.0-1.0 mg/dL) Aspartate Amino Transferase 19 (Ref Range: 5-37 U/L) 33 (Ref Range: 5-37 U/L) Alanine Aminotransferase 18 (Ref Range: 0-40 U/L) 31 (Ref Range: 0-40 U/L) Total Protein 6.2 L (Ref Range: 6.5-8.0 g/dL) 7.6 (Ref Range: 6.5-8.0 g/dL) Albumin Level 3.5 (Ref Range: 3.5-5.0 g/dL) 4.3 (Ref Range: 3.5-5.0 g/dL) Alkaline Phosphatase 70 (Ref Range: 39-117 U/L) 92 (Ref Range: 39-117 U/L) Potassium 4.0 (Ref Range: 3.3-5.1 mmol/L) 5.0 (Ref Range: 3.3-5.1 mmol/L) Chloride 113 H (Ref Range: 96-108 mmol/L) 108 (Ref Range: 96-108 mmol/L) Carbon Dioxide 23 (Ref Range: 22-29 mmol/L) 26 (Ref Range: 22-29 mmol/L) Anion Gap 11 L (Ref Range: 12-20) 10 L (Ref Range: 12-20) Blood Urea Nitrogen 50 H (Ref Range: 9-16 mg/dL) 26 H (Ref Range: 9-16 mg/dL) Creatinine 1.46 H (Ref Range: 0.5-1.4 mg/dL) 1.15 (Ref Range: 0.5-1.4 mg/dL) Estimated Glomerular Filt Rate 47 > 60 Glucose Random 87 (Ref Range: 60-115 mg/dL) 104 (Ref Range: 60-115 mg/dL) Calcium 8.5 (Ref Range: 8.4-10.2 mg/dL) 10.0 (Ref Range: 8.4-10.2 mg/dL) Creatinine Clr Calc Pharmacy 50.0 NR ???Lab:Hold Lav - Possible Hematology (Order Date - 02/27/2025) (Collection Date & Time - 02/27/2025 07:00 AM)?ValueReference Range?Hold Lav - Possible HematologySEE NOTE- * Lab:Phosphorus * Collection Date 02/27/2025 02/26/2025 02/25/2025 02/25/2025 02/24/2025 Collection Time 07:00 AM 05:56 AM 03:47 PM 08:44 AM 08:2 3 AM Order Date 02/27/2025 02/26/2025 02/25/2025 02/25/202502/24 Phosphorus 2.0 L (Ref Range: 2.7-4.5 mg/dL) 2.0 L (Ref Range: 2.7-4.5 mg/dL) 2.4 L (Ref Range: 2.7-4.5 mg/dL) 1.4 L (Ref Range: 2.7-4.5 mg/dL) 2.2 L (Ref Range: 2.7-4.5 mg/dL) ???Imaging:CT abdomen pelvis wo con (Order Date - 02/22/2025) (Performed Date - 02/22/2025) * Examination: G eneral Examination: GENERAL APPEARANCE: p leasant, well nourished, well developed, in no acute distress, calm and relaxed: overweight: man. HEAD: a traumatic, normocephalic. EYES: e loco, perrla, anicteric, conjugate. EARS: n ormal. NOSE: s eptum intact. ORAL CAVITY: n ormal, unremarkable. NECK/THYROID: n o jugular venous distention, no carotid bruit, thyroid normal. LYMPH NODES: n o enlarged lymph nodes,spleen normal. SKIN: n o suspicious lesions, anicteric. HEART: n o clicks, gallops, murmurs, or rubs, regular rhythm, S1, S2 normal, no s3, or vascular bruits. LUNGS: : diminished breath sounds throughout: no wheezes, rales, rhonchi. BREASTS: no masses palpable bilaterally. ABDOMEN: b owel sounds normal, no ascites, no organomegaly, no mass: overweight. RECTAL EXAM: n ot examined. MUSCULOSKELETAL: e xtremities unremarkable, no clubbing, cyanosis or edema. PERIPHERAL PULSES: n ormal. NEUROLOGIC: a lert and oriented, cranial nerves 2-12 grossly intact, deep tendon reflexes 2+ symmetrical, motor strength normal upper and lower extremities, sensory exam intact. PSYCH: a lert, oriented. G enitourinary - Male: PENIS: A Mojica catheter is inserted. ? Assessment: * Assessment: 1. U rine retention - R33.9 (Primary) N otes :He was acutely ill and was taken to the emergency room at [facility] across the street from my office he was evaluated and subsequently admitted to the hospital.He was discharged after 6 days and spent 2 months in rehabilitation and is now living at home alone with nursing support. He has an indwelling Mojica catheter in place. He will see urology next week for an outpatient voiding trial. 2 . C hronic obstructive pulmonary disease, unspecified COPD type - J44.9 N otes :He will continue to see the accounting system expert regularly. The 6 mm pulmonary nodule will be followed carefully. He is no longer smoking. He will exercise regularly. He will continue to use his nebulizer and his new inhaler. 3 . F ormer smoker - Z87.891 N otes :He is highly motivated not to smoke. We discussed a plan to prevent relapse in times of stress and illness. 4 . O verweight (BMI 25.0-29.9) - E66.3 N otes :He is now overweight with a body mass index of 25.68. We discussed his weight loss strategy and I reinforced continued weight loss through diet restricted in fat calories and sodium. 5 . B enign prostatic hypertrophy - N40.0 N otes :He recently became unable to sleep and has overflow incontinence with a massively distended bladder. He has been hospitalized. Plan: * Treatment: 2. O thers Continue Ventolin HFA Aerosol Solution, 108 (90 Base) MCG/ACT, INHALE 2 PUFFS INTO THE LUNGS EVERY 6 HOURS; C ontinue Omeprazole Capsule Delayed Release, 20 MG, TAKE 1 CAPSULE BY MOUTH EVERY DAY 30 MINUTES BEFORE BREAKFAST; C ontinue Roflumilast Tablet, 500 MCG, 1 tablet, Orally, Once a day; C ontinue Montelukast Sodium Tablet, 10 MG, TAKE 1 TABLET BY MOUTH AT BEDTIME Diagnosis Unavailable, Oral. * Procedure Codes: * Preventive Medicine: Counseling: C are goal follow-up plan: Counseling for abnormal BMI given Y es Above Normal BMI Follow-up D ietary management education, guidance, and counseling, Dietary needs education, Exercise promotion: strength training, Exercise promotion: stretching, Feeding regime, Giving encouragement to exercise, Lifestyle education regarding diet, Nutrition / feeding management, Nutrition therapy, Prescribed activity/exercise education, Prescribed diet education, Prescribed dietary intake, Special diet education, Weight monitoring , Intervention, Order not done: Medical or Other reason not done S moking/Tobacco Use Patient counseled on the dangers of tobacco use and urged to quit. 0 04/26/2025 COPD Care Plan: P atient Lifestyle Goals B e able to be more active with friends and family, Reduce number of ED and hospitalizations, Relieve symptoms and improve quality of life. T reatment Goals E xercise to help whole body, including lungs, Eat a nutritious diet and increase water consumption to 6-8 glasses a day, Eat 4-5 small meals throughout the day. B arriers n o barriers. S elf-Managment Goals G et an air purifier for the rooms you are in the most, Eat a healthy diet. * Follow Up: 3 Weeks (Reason: ov) * Images: * Sign off status: Completed true * Provider: Roddy Oreilly MD Date: 0 04/26/2025 Generated for Hayden wiley/Shawn/Deshawnitting on: 09/09/2024 07:40 PM EST History and Physical Notes * HPI (History of Present Illness) Category Sub-Category Detail Notes COVID-19 Screening Questions Have you had any new onset fever, chills, cough, congestion, sore throat, shortness of breath, muscle aches?: No Examination Category Sub-Category Detail Notes Genitourinary - Male PENIS: A Mojica cat heter is inserted General Examination GENERAL APPEARANCE: pleasant , well nourished, well developed, in no acute distress, calm and relaxed: overweight: man HEAD: atraumatic, normocep halic EYES: eomi, perrla, anicte dinorah, conjugate EARS: normal NOSE: septum intact NECK/THYROID: no jugular venous di stention, no carotid bruit, thyroid normal HEART: no clicks, gallops, murmurs, or rubs, regular rhythm, S1, S2 normal, no s3, or vascular bruits LUNGS: : diminished breath sounds throughout: no wheezes, rales, rhonchi ABDOMEN: bowel sounds normal, no ascites, no organomegaly, no mass: overweight NEUROLOGIC: alert and oriented, cranial nerves [...]
--- OUTSIDE RECORDS SUMMARY | 2025-04-30 10:40 | XMS_ITS ---
Author Organization Thaddeus Oreilly III, MD Address [address] [place] [address] [address] [place] [address] Care Team Providers Care Visual Stylist Name Role Phone Dr. Thaddeus Oreilly III Primary Care Provider REASON FOR VISIT Refills Medications Medication SIG (Take, Route, Frequency, Duration) Notes Start Date End Date Status Albuterol Sulfate (2.5 MG/3ML) 0.083% INHALE 3 ML TWICE DAILY WITH NEBULIZER Inhalation Active Montelukast Sodium 10 MG TAKE 1 TABLET B Y MOUTH AT BEDTIME Diagnosis Unavailable Oral Active Roflumilast 500 MCG 1 tablet Orally Once a day Active Omeprazole 20 MG TAKE 1 CAPSULE BY [facility] EVERY DAY 30 MINUTES BEFORE BREAKFAST Active Ventolin HFA 108 (90 Base) MCG/ACT INHALE 2 PUFFS INTO THE LUNGS EVERY 6 HOURS Active Tylenol 325 MG 1 tablet as needed Orally every 6 hrs As needed Active Budesonide 0.5 MG/2ML INHALE 2 ML BY NEBULIZATION TWICE DAILY FOR 30 DAYS Inhalation for 90 Days Active Alfuzosin HCl ER 10 MG 1 tablet after me al Orally at bed time Active Finasteride 5 MG 1 tablet Orally at b ed time Active DuoNeb 0.5-2.5 (3) MG/3ML 3 mL as needed Inhalation twice a day Active Social History Sex Assigned At : Social History Observation Description Sex Assigned At Male Encounters Encounter Location Date Provider Diagnosis Thaddeus Oreilly III, MD [address] [place] [address] [address] [place] [phone] 04/30/2025 Thaddeus Oreilly Plan Of Treatment Next Appt Details Provider Name:Thaddeus Oreilly , 07/24/2025 03:15:00 PM, [address] [facility] [address], [place], [address], Provider Name:Thaddeus Oreilly , 11/06/2025 03:00:00 PM, [address] [place] [address] [address], [place], [address], Progress Notes * CURT WOODSDOB:1950 (74 yo M)Acc No.[id number]:04/30/2025 Patient: CURT BERRY :1950 A ge:74 Y S ex:Male Address:[address] [place] [address] [place], [address] Subjective: * Chief Complaints: * R efills * Medical History: * Surgical History: * Hospitalization/Major Diagno stic Procedure: * Medications: T akingTylenol 325 MG Tablet 1 tablet as needed Orally every 6 hrs As neededDuoNeb 0.5-2.5 (3) MG/3ML Solution 3 mL as needed Inhalation twice a day Finasteride 5 MG Tablet 1 tablet Orally at bed time Alfuzosin HCl ER 10 MG Tablet Extended Release 24 Hour 1 tablet after meal Orally at bed time Budesonide 0.5 MG/2ML Suspension INHALE 2 ML BY NEBULIZATION TWICE DAILY FOR 30 DAYS Inhalation Ventolin HFA 108 (90 Base) MCG/ACT Aerosol [...] List reviewed and reconciled with the patientTaking Tylenol 325 MG Tablet 1 tablet as needed Orally every 6 hrs As neededTaking DuoNeb 0.5-2.5 (3) MG/3ML Solution 3 mL as needed Inhalation twice a day Taking Finasteride 5 MG Tablet 1 tablet Orally at bed time Taking Alfuzosin HCl ER 10 MG Tablet Extended Release 24 Hour 1 tablet after meal Orally at bed time Taking Budesonide 0.5 MG/2ML Suspension INHALE 2 ML BY NEBULIZATION TWICE DAILY FOR 30 DAYS Inhalation Taking Ventolin HFA 108 (90 Base) MCG/ACT [...] List reviewed and reconciled with the patient Objective: * Vitals: * Physical Examination: Assessment: Plan: * Treatment: * Procedure Codes: * true * Date: Generated for Hayden Escamilla/Brice on: 09/09/2024 07:37 PM EST
--- OUTSIDE RECORDS SUMMARY | 2025-05-01 11:48 | XMS_ITS ---
Author Organization Thaddeus Oreilly III, MD Address [address] [place] [address] [place] [address] Care Team Providers Care Training Consultant Name Role Phone Dr. Thaddeus Oreilly III Primary Care Provider Medications Medication SIG (Take, Route, Frequency, Duration) Notes Start Date End Date Status Alfuzosin HCl ER 10 MG 1 tablet Orally O nce a day for 30 days 05/01/2025 04/26/2026 Active Finasteride 5 MG 1 tablet Orally Once a day for 30 days 05/01/2025 04/26/2026 Active Social History Sex Assigned At : Social History Observation Description Sex Assigned At Male Encounters Encounter Location Date Provider Diagnosis Thaddeus Oreilly III, MD [address] [place] [address] [place] [address] 05/01/2025 Thaddeus Oreilly Plan Of Treatment Medication Medication Name Sig Start Date Stop Date Notes Alfuzosin HCl ER 10 MG 1 tablet Orally O nce a day for 30 days 05/01/2025 04/26/2026 Finasteride 5 MG 1 tablet Orally Once a day for 30 days 05/01/2025 04/26/2026 Next Appt Details Provider Name:Thaddeus Oreilly , 07/24/2025 03:15:00 PM, [address] [place] [address] [place], [address], Provider Name:Thaddeus Oreilly , 11/06/2025 03:00:00 PM, [address] [place] [address] [place], [address], Progress Notes * CURT WOODSDOB:1950 (74 yo M)Acc No.[id number]:05/01/2025 Patient: CURT BERRY :1950 A ge:74 Y S ex:Male Address:[address] [place] [address], [address] * Refills Start Finasteride Tablet, 5 MG, Orally, 30 Tablet, 1 tablet, Once a day, 30 days, Refills=11 Start Alfuzosin HCl ER Tablet Extended Release 24 Hour, 10 MG, Orally, 30 Tablet, 1 tablet, Once a day, 30 days, Refills=11 * true * Date: Generated for Hayden wiley/Shawn/Brice on: 09/09/2024 07:37 PM EST
--- OUTSIDE RECORDS SUMMARY | 2025-05-13 12:00 | XMS_ITS ---
Author Organization Thaddeus Oreilly III, MD Address [address] [place] [address] [address] Yakelin [place] [phone] Care Team Providers Care Hot Top Liner Helper Name Role Phone Dr. Thaddeus Oreilly III Primary Care Provider Allergies Allergen (clinical drug ingredient) Drug/Non Drug Allergy documented on EMR Reaction Allergy Type Onset Date Status No Known Drug Allergy Unknown Drug Allergy Active REASON FOR VISIT Follow up Medications Medication SIG (Take, Route, Frequency, Duration) Notes Start Date End Date Status Alfuzosin HCl ER 10 MG 1 tablet Orally Once a day 05/01/2025 Active Tylenol 325 MG 1 tablet as needed Orally every 6 hrs As needed Active DuoNeb 0.5-2.5 (3) MG/3ML 3 mL as needed Inhalation twice a day Active Finasteride 5 MG 1 tablet Orally at b ed time Active Finasteride 5 MG 1 tablet Orally Once a day 2024 Active Ventolin HFA 108 (90 Base) MCG/ACT INHALE 2 PUFFS INTO THE LUNGS EVERY 6 HOURS Active Omeprazole 20 MG TAKE 1 CAPSULE BY [facility] EVERY DAY 30 MINUTES BEFORE BREAKFAST Active Roflumilast 500 MCG 1 tablet Orally Once a day Active Montelukast Sodium 10 MG TAKE 1 TABLET B Y MOUTH AT BEDTIME Diagnosis Unavailable Oral Active Albuterol Sulfate (2.5 MG/3ML) 0.083% INHALE 3 ML TWICE DAILY WITH NEBULIZER Inhalation Active Alfuzosin HCl ER 10 MG 1 tablet after me al Orally at bed time Active Budesonide 0.5 MG/2ML INHALE 2 ML BY NEBULIZATION TWICE DAILY FOR 30 DAYS Inhalation Active Social History Tobacco Use: Social [...] Additional Findings: Tobacco non-user Ex-cigaret te smoker Encounters Encounter Location Date Provider Diagnosis Thaddeus Oreilly III, MD [address] [facility] [address] [address] [place] [phone] 05/13/2025 Thaddeus Oreilly Chronic obstructive pulmonary disease, unspecified COPD type J44.9 Assessments Encounter Date Diagnosis (ICD Code) Assessment Notes Treat ment Notes Treatment Clinical Notes 05/13/2025 Chronic obstructive pulmonary disease, unspecified COPD type (ICD-10 - J44.9) Plan Of Treatment Medication Medication Name Sig Start Date Stop Date Notes Alfuzosin HCl ER 10 MG 1 tablet Orally Once a day 05/01/20 25 Tylenol 325 MG 1 tablet as needed O rally every 6 hrs DuoNeb 0.5-2.5 (3) MG/3ML 3 mL as needed Inhalation twice a day Finasteride 5 MG 1 tablet Orally at bed time Finasteride 5 MG 1 tablet Orally Once a day 05/01/2025 Ventolin HFA 108 (90 Base) MCG/ACT INHALE 2 PUFFS INTO THE LUNGS EVERY 6 HOURS Omeprazole 20 MG TAKE 1 CAPSULE BY [facility] EVERY DAY 30 MINUTES BEFORE BREAKFAST Roflumilast 500 MCG 1 tablet Orally Once a day Montelukast Sodium 10 MG TAKE 1 TABLET B Y MOUTH AT BEDTIME Diagnosis Unavailable Oral Albuterol Sulfate (2.5 MG/3ML) 0.083% INHALE 3 ML TWICE DAILY WITH NEBULIZER Inhalation Alfuzosin HCl ER 10 MG 1 tablet after me al Orally at bed time Budesonide 0.5 MG/2ML INHALE 2 ML BY NEB ULIZATION TWICE DAILY FOR 30 DAYS Inhalation Next Appt Details Provider Name:Thaddeus Oreilly , 07/24/2025 03:15:00 PM, [address] [facility] [address], [place], [address], Provider Name:Thaddeus Oreilly , 11/06/2025 03:00:00 PM, [address] [facility] [address], [place], [phone], Progress Notes * CURT WOODSDOB:1950 (74 yo M)Acc No.[id number]:05/13/2025 Progress Notes Patient: CURT BERRY Provider: Roddy Oreilly MD :1950 A ge:74 Y S ex:Male Date:05/13/2025 Address:[address] [place], [place] [id number] Subjective: * Chief Complaints: * 1 . Follow up. * HPI: C OVID-19 Screening: Questions H ave you had any new [...] of breath d enies. G astrointestinal: Constipation d enies. D ecreased appetite d enies.?Diarrhea d enies. H eartburn d enies. N ausea d enies. R ectal bleeding?denies. V omiting d enies. H ematology: bruising d enies. p etechiae d enies. S wollen glands n one have been noted. G enitourinary: Frequent urination d enies. M usculoskeletal: Muscle aches d enies. P ainful joints d enies. S ciatica d enies. W eakness d enies. S kin: Itching d enies. R dago d enies. S kin lesion(s)?denies. N eurologic: Difficulty speaking d enies. D izziness d enies.?Headache d enies. L ow back pain d enies. P sychiatric: Depressed mood d enies. * Medical History: C OPD, Emphysema, Diffusion defect, 6 mm pulmonary nodule November 2021, Obesity, Benign prostatic hypertrophy, Glaucoma, Former smoker, GERD. * Surgical History: a ppendectomy age 7, No history . * Hospitalization/Major Diagno stic Procedure: N o history . * Family History: F ather: 60 yrs, [...] H e was born and raised in [facility]. 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 * Medications: T aking Tylenol 325 MG Tablet 1 tablet as needed Orally every 6 hrs As needed, Taking DuoNeb 0.5-2.5 (3) MG/3ML Solution 3 mL as needed Inhalation twice a day , Taking Finasteride 5 MG Tablet 1 tablet Orally at bed time , Taking Alfuzosin HCl ER 10 MG Tablet Extended Release 24 Hour 1 tablet after meal Orally at bed time , Taking Budesonide 0.5 MG/2ML Suspension INHALE 2 ML BY NEBULIZATION TWICE DAILY FOR 30 DAYS Inhalation , Taking Ventolin HFA 108 (90 Base) MCG/ACT Aerosol Solution INHALE 2 PUFFS INTO THE LUNGS EVERY 6 HOURS , Taking Omeprazole 20 MG Capsule Delayed Release TAKE 1 CAPSULE BY MOUTH EVERY DAY 30 MINUTES BEFORE BREAKFAST , Taking Roflumilast 500 MCG Tablet 1 tablet Orally Once a day , Taking Montelukast Sodium 10 MG Tablet TAKE 1 TABLET BY MOUTH AT BEDTIME Diagnosis Unavailable Oral , Taking Albuterol Sulfate (2.5 MG/3ML) 0.083% Nebulization Solution INHALE 3 ML TWICE DAILY WITH NEBULIZER Inhalation , Taking Finasteride 5 MG Tablet 1 tablet Orally Once a day , stop date 04/26/2026, Taking Alfuzosin HCl ER 10 MG Tablet Extended Release 24 Hour 1 tablet Orally Once a day , stop date 04/26/2026, Medication List reviewed and reconciled with the patient * Allergies: N o Known Drug Allergy. Objective: * Vitals: * Examination: G eneral Examination: GENERAL APPEARANCE: p leasant, well nourished, well developed, in no acute distress, calm and relaxed. HEAD: a traumatic, normocephalic. EYES: e loco, [...] normal, no s3, or vascular bruits. LUNGS: c lear to auscultation . BREASTS: no masses palpable bilaterally. ABDOMEN: b owel sounds normal, no ascites, no organomegaly, no mass. RECTAL EXAM: n ot examined. MUSCULOSKELETAL: e xtremities unremarkable, no clubbing, cyanosis or edema. PERIPHERAL PULSES: n ormal. NEUROLOGIC: a lert and oriented, cranial nerves 2-12 grossly intact, deep tendon reflexes 2+ symmetrical, motor strength normal upper and lower extremities, sensory exam intact. PSYCH: a lert, oriented. Assessment: * Assessment: 1. C hronic obstructive pulmonary disease, unspecified COPD type - J44.9 Plan: * Treatment: 2. O thers Continue Finasteride Tablet, 5 MG, 1 tablet, Orally, Once a day; C ontinue Alfuzosin HCl ER Tablet Extended Release 24 Hour, 10 MG, 1 tablet, Orally, Once a day; C ontinue Tylenol Tablet, 325 MG, 1 tablet as needed, Orally, every 6 hrs As needed; C ontinue DuoNeb Solution, 0.5-2.5 (3) MG/3ML, 3 mL as needed, Inhalation, twice a day; C ontinue Finasteride Tablet, 5 MG, 1 tablet, Orally, at bed time; C ontinue Alfuzosin HCl ER Tablet Extended Release 24 Hour, 10 MG, 1 tablet after meal, Orally, at bed time; C ontinue Budesonide Suspension, 0.5 MG/2ML, INHALE 2 ML BY NEBULIZATION TWICE DAILY FOR 30 DAYS, Inhalation; C ontinue Ventolin HFA Aerosol Solution, 108 (90 Base) [...] MOUTH AT BEDTIME Diagnosis Unavailable, Oral. * Images: * The named appointment provid er may or may not be the originator of this progress note, and it is not deemed complete until electronically signed by the appointment provider. Sign off status: Pending * Provider: Roddy Oreilly MD Date: 0 05/13/2025 Generated for Hayden wiley/Shawn/Brice on: 09/09/2024 07:39 PM EST History and Physical Notes * HPI (History of Present Illness) Category Sub-Category Detail Notes COVID-19 Screening Questions Have you had any new onset fever, chills, cough, congestion, sore throat, shortness of breath, muscle aches?: No Examination Category Sub-Category Detail Notes General Examination GENERAL APPEARANCE: pleasant , well nourished, well developed, in no acute distress, calm and relaxed HEAD: atraumatic, normocep halic EYES: eomi, perrla, anicte dinorah, conjugate EARS: normal NOSE: septum intact NECK/THYROID: no jugular venous di stention, no carotid bruit, thyroid normal HEART: no clicks, gallops, murmurs, or rubs, regular rhythm, S1, S2 normal, no s3, or vascular bruits LUNGS: clear to auscultatio n ABDOMEN: bowel sounds normal, no ascites, no organomegaly, no mass NEUROLOGIC: alert and oriented, cranial nerves 2-12 [...]
--- OUTSIDE RECORDS SUMMARY | 2025-05-21 10:00 | XMS_ITS ---
Author Organization Thaddeus Oreilly III, MD Address [address] [place] [address] [place] [address] Care Team Providers Care Segmental Wall Installer Name Role Phone Dr. Thaddeus Oreilly III [...] Provider Diagnosis Thaddeus Oreilly III, MD [address] [place] [address] [address] [facility] [place] [address] 05/21/2025 Thaddeus Oreilly Benign prostatic hypertrophy N40.0 [...] was taken to the emergency room at [facility] across the street from my office [...] J44.9) He will continue to see the grinder chipper regularly. The 6 mm pulmonary nodule will [...] INSTITUTE EVERY DAY 30 MINUTES BEFORE BREAKFAST Ventolin [...] Weeks, Reason: OV Provider Name:Thaddeus Oreilly , 07/24/2025 03:15:00 PM, [address] [place] [address] [address], [place], [address], Provider Name:Thaddeus Oreilly , 11/06/2025 03:00:00 PM, [address] [place] [address] [address], [place], [address], Progress Notes * CURT WOODSDOB:1950 (74 yo M)Acc No.[id number]:05/21/2025 Progress Notes Patient: CURT BERRY Provider: Roddy Oreilly MD :1950 A ge:74 Y S ex:Male Date:05/21/2025 Address:[address] [place], [place] [id number] Subjective: * Chief Complaints: * G erdCopdBenign prostatic hypertrophyOverweightUrine retention, Mojica catheter in place * HPI: C OVID-19 Screening: He returns to the office for medical management.In February of 2025 he presented to the office with severe urinary retention and was admitted to the hospital. He was discharged at the end of February of this matter and has been in rrehabilitation in [place]. He has been home for 2 weeks. [facility]. He continues to have an indwelling Mojica catheter and is scheduled to see his urologist, Dr. iLndsey, May 23, 2025@9 AM. His understanding is [...] Taina zavala was born and raised in [facility]. 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 * Medications: T akingFinasteride 5 MG Tablet [...] 1.0 - mg/dL?Bilirubin Direct0.30.0-0.5 - mg/dL?Aspartate Amino Wendvpmvkph921-05 - U/L?Alanine Iayteehtnuyrxupr214-85 - U/L?Total Protein7.46.5-8.0 - g/dL?Albumin Level4.33.5-5.0 - g/dL?Alkaline Dxvanhyhxhz9044-259 - U/L ???Lab:Blood Culture (Second) (Order Date [...] UANegativeNegative - mg/dL?Urine BloodSmall (1+)ANegative - ?Specific [place] - Urine1.0201.005-1.025 -?Urine ProteinNegative Neg-Trace - mg/dL?Urine KetonesTraceNegative - mg/dL?Nitrite Urine NegativeNegative -?Leukocyte Esterase UrineModerate (2+)ANegative - ?RBC Itarr5-80D4-1 - /HPF?WBC Wsjnt88-12V2-2 - /HPF ?Squamous Epithelial Cell Urine0-20-2 - [...] was taken to the emergency room at [facility] across the street from my office [...] otes :He will continue to see the grinder chipper regularly. The 6 mm pulmonary nodule will [...] 05/21/2025 Generated for Hayden wiley/Shawn/Joseransmitting on: 1 09/09/2024 07:37 PM EST History and Physical Notes * [...]
--- OUTSIDE RECORDS SUMMARY | 2025-06-07 08:56 | XMS_ITS ---
Author Organization Thaddeus Oreilly III, MD Address [address] [place] [address] [place] [address] Care Team Providers Care Usability Strategist Name Role Phone Dr. Thaddeus Oreilly III Primary Care Provider [phone] Reason For Referral Reason Evaluate and Treat Medication Management and Teaching Residential Diagnosis 1 Need for assistance at home [...] Shanika stated it would still be considered snf. Would like referral to be refaxed with to [phone]. Referral was refaxed. Referral Priority Routine REASON FOR VISIT Patient Concerns Social History Sex Assigned At : Social History Observation Description Sex Assigned At Male Encounters Encounter Location Date Provider Diagnosis Thaddeus Oreilly III, MD [address] [place] [address] DR GONZALEZ Yakelin [place] [address] 06/07/2025 Thaddeus Oreilly Plan Of Treatment Referrals Referral Date Details 06/07/2025 06/07/2025, Evaluate and Treat Medication Management and Teaching Residential, [facility] Next Appt Details Provider Name:Thaddeus Oreilly , 07/24/2025 03:15:00 PM, [address] [place] [address] [address], [place], [address], Provider Name:Thaddeus Lukas Denilson , 11/06/2025 03:00:00 PM, [address] [place] [address] [address], [place], [address], Progress Notes * CURT WOODSDOB:1950 (74 yo M)Acc No.[id number]:06/07/2025 Patient: Asa BÁRBARACURT :1950 A ge:74 Y S ex:Male Address:[address] [place] [address] [place], [address] Subjective: * Chief Complaints: * P atient Concerns * Medical History: * Surgical History: * Hospitalization/Major Diagno stic Procedure: * Medications: Objective: * Vitals: * Physical Examination: Assessment: Plan: * Treatment: * Procedure Codes: * true * Date: Generated for Hayden wiley/Shawn/eTamrcussmitting on: 09/09/2024 07:36 PM EST Consultation Request Notes Referral Date Referring Provider Referred Provider Not kaylee 06/07/2025 Thaddeus Oreilly [facility]aring Evaluate and Treat Medication Management and Teaching Residential
--- OUTSIDE RECORDS SUMMARY | 2025-06-10 10:15 | XMS_ITS ---
Author Organization Thaddeus Oreilly III, MD Address [address] [place] [address] DR SAEED Yakelin [place] [phone] Care Team Providers Care Stoneworking Belt Sander Name Role Phone Dr. Thaddeus Oreilly III Primary Care Provider Allergies Allergen (clinical drug ingredient) Drug/Non Drug Allergy documented on EMR Reaction Allergy Type Onset Date Status No Known Drug Allergy Unknown Drug Allergy Active REASON FOR VISIT Balance issue, GERD, COPD, Benign prostatic hypertrophy Medications Medication SIG (Take, Route, Frequency, Duration) Notes Start Date End Date Status Albuterol Sulfate (2.5 MG/3ML) 0.083% INHALE 3 ML TWICE DAILY WITH NEBULIZER Inhalation Active Montelukast Sodium 10 MG TAKE 1 TABLET B Y MOUTH AT BEDTIME Diagnosis Unavailable Oral Active Roflumilast 500 MCG 1 tablet Orally Once a day Active Tylenol 325 MG 1 tablet as needed Orally every 6 hrs As needed Active Budesonide 0.5 MG/2ML INHALE 2 ML BY NEBULIZATION TWICE DAILY FOR 30 DAYS Inhalation Active DuoNeb 0.5-2.5 (3) MG/3ML 3 mL as needed Inhalation twice a day Active Omeprazole 20 MG TAKE 1 CAPSULE BY [facility] EVERY DAY 30 MINUTES BEFORE BREAKFAST Active Ventolin HFA 108 (90 Base) MCG/ACT INHALE 2 PUFFS INTO THE LUNGS EVERY 6 HOURS Active Finasteride 5 MG 1 tablet Orally Once a day 2024 Active Alfuzosin HCl ER 10 MG 1 tablet Orally Once a day 05/01/2025 Active Social History Tobacco Use: Social History [...] non-user Ex-cigaret te smoker Vital Signs Temperature 98.0 degrees Fahrenheit 06/10/20 25 Blood pressure systolic 95 mm Hg 06/10/20 25 Blood pressure diastolic 64 mm Hg 025 Heart Rate 96 /min 06/10/2025 Height 74 in 06/10/2025 Weight 198 lbs 06/10/2025 BMI 25.42 kg/m2 06/10/2025 Encounters Encounter Location Date Provider Diagnosis Thaddeus Oreilly III, MD [address] [place] [address] DR [place]A, [place] [phone] 06/10/2025 Thaddeus Oreilly Chronic obstructive pulmonary disease, unspecified COPD type J44.9 ; Former smoker Z87.891 ; Gastroesophageal reflux disease without esophagitis K21.9 ; Benign prostatic hypertrophy N40.0 ; Overweight (BMI 25.0-29.9) E66.3 ; Pulmonary nodule less than 6 mm determined by computed tomography of lung R91.1 and Urine retention R33.9 Assessments Encounter Date Diagnosis (ICD Code) Assessment Notes T reatment Notes Treatment Clinical Notes 06/10/2025 Chronic obstructive pulmonary disease, unspecified COPD type (ICD-10 - J44.9) He will continue to see the entry level manager regularly. The 6 mm pulmonary nodule will be followed carefully. He is no longer smoking. He will exercise regularly. He will continue to use his nebulizer and his new inhaler. 06/10/2025 Former smoker (ICD-1 0 - Z87.891) He is highly motivated not to smoke. We discussed a plan to prevent relapse in times of stress and illness. 06/10/2025 Gastroesophageal reflux disease without esophagitis (ICD-10 - K21.9) His symptoms are well-controlled with current regimen. No change was necessary today. 06/10/2025 Benign prostatic hypertrophy (ICD-10 - N40.0) He recently became unable to sleep and has overflow incontinence with a massively distended bladder. He has been hospitalized. 06/10/2025 Overweight (BMI 25.0-29.9) (ICD-10 - E66.3) He is now overweight with a body mass index of 25.68. We discussed his weight loss strategy and I reinforced continued weight loss through diet restricted in fat calories and sodium. 06/10/2025 Pulmonary nodule les s than 6 mm determined by computed tomography of lung (ICD-10 - R91.1) The 6 mm left lower lobe nodule is stable on a CT scan done in January of this year. He will have an annual CT scan. 06/10/2025 Urine retention (ICD-10 - R33.9) He was acutely ill and was taken to the emergency room at [facility] across the street from my office he was evaluated and subsequently admitted to the hospital.He was discharged after 6 days and spent 2 months in rehabilitation and is now living at home alone with nursing support. He has an indwelling Mojica catheter in place. He will see urology next week for an outpatient voiding trial. Plan Of Treatment Medication Medication Name Sig Start Date Stop Date Notes Albuterol Sulfate (2.5 MG/3ML) 0.083% INHALE 3 ML TWICE DAILY WITH NEBULIZER Inhalation Montelukast Sodium 10 MG TAKE 1 TABLET B Y MOUTH AT BEDTIME Diagnosis Unavailable Oral Roflumilast 500 MCG 1 tablet Orally Once a day Tylenol 325 MG 1 tablet as needed O rally every 6 hrs Budesonide 0.5 MG/2ML INHALE 2 ML BY NEB ULIZATION TWICE DAILY FOR 30 DAYS Inhalation DuoNeb 0.5-2.5 (3) MG/3ML 3 mL as needed Inhalation twice a day Omeprazole 20 MG TAKE 1 CAPSULE BY [facility] EVERY DAY 30 MINUTES BEFORE BREAKFAST Ventolin HFA 108 (90 Base) MCG/ACT INHALE 2 PUFFS INTO THE LUNGS EVERY 6 HOURS Finasteride 5 MG 1 tablet Orally Once a day 05/01/2025 Alfuzosin HCl ER 10 MG 1 tablet Orally Once a day 05/01/20 25 Next Appt Details Follow Up: 6 Weeks, Reason: ov Provider Name:Thaddeus Oreilly , 07/24/2025 03:15:00 PM, [address] [place] [address] [address], [place], [address], Provider Name:Thaddeus Oreilly , 11/06/2025 03:00:00 PM, [address] [place] [address] [address], [place], [address], Progress Notes * CURT WOODSDOB:1950 (74 yo M)Acc No.[id number]:06/10/2025 Progress Notes Patient: CURT BERRY Provider: Roddy Oreilly MD :1950 A ge:74 Y S ex:Male Date:06/10/2025 Address:[address] [place], [place] [phone] Subjective: * Chief Complaints: * B alance issueGERDCOPDBenign prostatic hypertrophy * HPI: C OVID-19 Screening: Taina zavala returns for ongoing medical management. He has been active with urology after a recent hospitalization for urine retention. He has noted some dizziness lately which he describes as noted problem balancing and also lightheaded. His blood pressure is slightly low. However, his symptoms were reproduced by motion of the head and change of position which suggest labyrinthitis. He is going to liberalize his sodium intake and stay well hydrated and report back in a week. He has an appointment with urology next week and with pulmonary medicine in September of next year. He is being followed for pulmonary nodules. He has recovered from his recent illness. Questions H ave you had any new [...] with exertion d enies. D yspnea on exertion?with prolonged activity. S hortness of breath w ith exertion. G astrointestinal: Constipation o ccasional. D ecreased appetite d enies. D iarrhea d enies. H eartburn d enies. N ausea d enies. R ectal bleeding d enies. V omiting d enies. H ematology: bruising d enies. p etechiae d enies. S wollen glands n one have been noted. G enitourinary: Frequent urination t wice a night. M usculoskeletal: Muscle aches d enies. P [...] Taina zavala was born and raised in [facility]. 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 * Medications: T akingFinasteride 5 MG Tablet 1 tablet Orally Once a day Alfuzosin HCl ER 10 MG Tablet Extended Release 24 Hour 1 tablet Orally Once a day Tylenol 325 MG Tablet 1 tablet as needed Orally every 6 hrs As neededDuoNeb 0.5-2.5 (3) MG/3ML Solution 3 mL as needed Inhalation twice a day Budesonide 0.5 MG/2ML Suspension INHALE 2 ML [...] ML TWICE DAILY WITH NEBULIZER Inhalation Taking Finasteride 5 MG Tablet 1 tablet Orally Once a day Taking Alfuzosin HCl ER 10 MG Tablet Extended Release 24 Hour 1 tablet Orally Once a day Taking Tylenol 325 MG Tablet 1 tablet as needed Orally every 6 hrs As neededTaking DuoNeb 0.5-2.5 (3) MG/3ML Solution 3 mL as needed Inhalation twice a day Taking Budesonide 0.5 MG/2ML Suspension INHALE 2 [...] 3 ML TWICE DAILY WITH NEBULIZER Inhalation DiscontinuedAlfuzosin HCl ER 10 MG Tablet Extended Release 24 Hour 1 tablet after meal Orally at bed time Finasteride 5 MG Tablet 1 tablet Orally at bed time Albuterol Sulfate (2.5 MG/3ML) 0.083% Nebulization Solution Inhalation Montelukast Sodium 10 MG Tablet Oral Medication List reviewed and reconciled with the patientDiscontinued Alfuzosin HCl ER 10 MG Tablet Extended Release 24 Hour 1 tablet after meal Orally at bed time Discontinued Finasteride 5 MG Tablet 1 tablet Orally at bed time Discontinued Albuterol Sulfate (2.5 MG/3ML) 0.083% Nebulization Solution Inhalation Discontinued Montelukast Sodium 10 MG Tablet Oral Medication List reviewed and reconciled with the patient * Allergies: N o Known Drug Allergyno[Allergies Verified] Objective: * Vitals: H t: 74, Wt:198, BMI:25.42, BP:95/64, HR:96, Temp:98.0, Wt-k.81. * P ast Orders: Lab:PSA Free and Total * Collection Date 06/03/2025 07/27/2023 Collection Time 04:34 PM 02:20 PM Order Date 06/03/2025 07/27/2023 Prostate Specific Ag Total 5.0 A (Ref Range: < OR = 4.0 ng/mL) 4.9 A (Ref Range: < OR = 4.0 ng/mL) Percent Free Prostate Spec Ag 6 A (Ref Range: >25 % (calc)) 20 A (Ref Range: >25 % (calc)) Free Prostate Spec Ag 0.3 (Ref Range: ng/mL) 1.0 (Ref Range: ng/mL) * Lab:Lipid Panel * Collection Date 06/03/2025 10/31/2024 02/01/2024 Collection Time 04:34 PM 11:34 AM 12:59 PM Order Date 06/03/2025 10/31/2024 02/01/2024 Triglycerides 104 (Ref Range: <150 mg/dL) 197 H (Ref Range: <150 mg/dL) 205 H (Ref Range: <150 mg/dL) Cholesterol 190 (Ref Range: <200 mg/dL) 197 (Ref Range: <200 mg/dL) 210 H (Ref Range: <200 mg/dL) LDL Cholesterol Calculated 130 H (Ref Range: <100 mg/dL) 122 H (Ref Range: <100 mg/dL) 126 H (Ref Range: <100 mg/dL) HDL Cholesterol 40 L (Ref Range: >40 mg/dL) 36 L (Ref Range: >40 mg/dL) 43 (Ref Range: >40 mg/dL) * Lab:Comprehensive Met. Panel * Collection Date 06/03/2025 02/23/2025 08/10/2024 Collection Time 04:34 PM 06:25 AM 01:10 PM Order Date 06/03/2025 02/23/2025 08/10/2024 Sodium 143 (Ref Range: 135-145 mmol/L) 143 (Ref Range: 135-145 mmol/L) 139 (Ref Range: 135-145 mmol/L) Bilirubin Total 0.4 (Ref Range: 0.0-1.0 mg/dL) 0.6 (Ref Range: 0.0-1.0 mg/dL) 0.6 (Ref Range: 0.0-1.0 mg/dL) Aspartate Amino Transferase 20 (Ref Range: 5-37 U/L) 19 (Ref Range: 5-37 U/L) 33 (Ref Range: 5-37 U/L) Alanine Aminotransferase 17 (Ref Range: 0-40 U/L) 18 (Ref Range: 0-40 U/L) 31 (Ref Range: 0-40 U/L) Total Protein 7.6 (Ref Range: 6.5-8.0 g/dL) 6.2 L (Ref Range: 6.5-8.0 g/dL) 7.6 (Ref Range: 6.5-8.0 g/dL) Albumin Level 4.1 (Ref Range: 3.5-5.0 g/dL) 3.5 (Ref Range: 3.5-5.0 g/dL) 4.3 (Ref Range: 3.5-5.0 g/dL) Alkaline Phosphatase 86 (Ref Range: 39-117 U/L) 70 (Ref Range: 39-117 U/L) 92 (Ref Range: 39-117 U/L) Potassium 4.6 (Ref Range: 3.3-5.1 mmol/L) 4.0 (Ref Range: 3.3-5.1 mmol/L) 5.0 (Ref Range: 3.3-5.1 mmol/L) Chloride 109 H (Ref Range: 96-108 mmol/L) 113 H (Ref Range: 96-108 mmol/L) 108 (Ref Range: 96-108 mmol/L) Carbon Dioxide 26 (Ref Range: 22-29 mmol/L) 23 (Ref Range: 22-29 mmol/L) 26 (Ref Range: 22-29 mmol/L) Anion Gap 13 (Ref Range: 12-20) 11 L (Ref Range: 12-20) 10 L (Ref Range: 12-20) Blood Urea Nitrogen 32 H (Ref Range: 9-16 mg/dL) 50 H (Ref Range: 9-16 mg/dL) 26 H (Ref Range: 9-16 mg/dL) Creatinine 1.08 (Ref Range: 0.5-1.4 mg/dL) 1.46 H (Ref Range: 0.5-1.4 mg/dL) 1.15 (Ref Range: 0.5-1.4 mg/dL) Estimated Glomerular Filt Rate > 60 47 > 60 Glucose Random 95 (Ref Range: 60-115 mg/dL) 87 (Ref Range: 60-115 mg/dL) 104 (Ref Range: 60-115 mg/dL) Calcium 10.0 (Ref Range: 8.4-10.2 mg/dL) 8.5 (Ref Range: 8.4-10.2 mg/dL) 10.0 (Ref Range: 8.4-10.2 mg/dL) Creatinine Clr Calc Pharmacy NR 50.0 NR * Lab:Complete Blood Count Aut o Diff * Collection Date 06/03/2025 02/23/2025 02/22/2025 Collection Time 04:34 PM 06:25 AM 06:32 PM Order Date 06/03/2025 02/23/2025 02/22/2025 White Blood Count 13.1 H (Ref Range: 4.8-10.8 X10*3/uL) 11.8 H (Ref Range: 4.8-10.8 X10*3/uL) 15.3 H (Ref Range: 4.8-10.8 X10*3/uL) Red Blood Count 4.44 L (Ref Range: 4.60-5.80 X10*6/uL) 4.29 L (Ref Range: 4.60-5.80 X10*6/uL) 4.91 (Ref Range: 4.60-5.80 X10*6/uL) Hemoglobin 13.2 L (Ref Range: 14.0-18.0 g/dl) 13.1 L (Ref Range: 14.0-18.0 g/dl) 15.1 (Ref Range: 14.0-18.0 g/dl) Hematocrit 40.3 L (Ref Range: 42.0-52.0 %) 38.6 L (Ref Range: 42.0-52.0 %) 43.8 (Ref Range: 42.0-52.0 %) Mean Corpuscular Volume 90.8 (Ref Range: 80.0-98.0 fL) 90.0 (Ref Range: 80.0-98.0 fL) 89.2 (Ref Range: 80.0-98.0 fL) Mean Corpuscular Hemoglobin 29.7 (Ref Range: 27.0-33.0 pg) 30.5 (Ref Range: 27.0-33.0 pg) 30.8 (Ref Range: 27.0-33.0 pg) Mean Corpuscular HGB Conc 32.8 (Ref Range: 31.0-36.0 g/dl) 33.9 (Ref Range: 31.0-36.0 g/dl) 34.5 (Ref Range: 31.0-36.0 g/dl) Red Cell Distribution Width 15.0 (Ref Range: 11.0-16.0 %) 13.7 (Ref Range: 11.0-16.0 %) 13.7 (Ref Range: 11.0-16.0 %) Platelet Count 366 (Ref Range: 160-400 X10*3/uL) 203 (Ref Range: 160-400 X10*3/uL) 226 (Ref Range: 160-400 X10*3/uL) Mean Platelet Volume 8.6 L (Ref Range: 9.4-12.4 fL) 9.4 (Ref Range: 9.4-12.4 fL) 9.0 L (Ref Range: 9.4-12.4 fL) Neutrophils Percent Auto 79.0 H (Ref Range: 45-73 %) 77.6 H (Ref Range: 45-73 %) 84.7 H (Ref Range: 45-73 %) Imm Gran Pct Auto 0.4 (Ref Range: 0.0-0.4 %) 0.3 (Ref Range: 0.0-0.4 %) 0.5 H (Ref Range: 0.0-0.4 %) Lymphocytes Percent Auto 11.2 L (Ref Range: 20-40 %) 8.0 L (Ref Range: 20-40 %) 5.2 L (Ref Range: 20-40 %) Monocytes Percent Auto 7.2 (Ref Range: 2-11 %) 11.2 H (Ref Range: 2-11 %) 8.8 (Ref Range: 2-11 %) Eosinophils Percent Auto 1.3 (Ref Range: 0-4 %) 2.3 (Ref Range: 0-4 %) 0.3 (Ref Range: 0-4 %) Basophils Percent Auto 0.9 (Ref Range: 0-2 %) 0.6 (Ref Range: 0-2 %) 0.5 (Ref Range: 0-2 %) NRBC Pct Auto 0.0 (Ref Range: 0.0-0.2 /100WBC) 0.0 (Ref Range: 0.0-0.2 /100WBC) 0.0 (Ref Range: 0.0-0.2 /100WBC) Neutrophils Absolute Auto 10.3 H (Ref Range: 2.0-8.3 x10*3/uL) 9.1 H (Ref Range: 2.0-8.3 x10*3/uL) 13.0 H (Ref Range: 2.0-8.3 x10*3/uL) Imm Gran Abs Auto 0.05 H (Ref Range: 0.00-0.03 X10*3/uL) 0.04 H (Ref Range: 0.00-0.03 X10*3/uL) 0.07 H (Ref Range: 0.00-0.03 X10*3/uL) Lymphocytes Absolute Auto 1.5 (Ref Range: 1.2-4.9 X10*3/uL) 0.9 L (Ref Range: 1.2-4.9 X10*3/uL) 0.8 L (Ref Range: 1.2-4.9 X10*3/uL) Monocytes Absolute Auto 0.9 (Ref Range: 0.1-1.2 X10*3/uL) 1.3 H (Ref Range: 0.1-1.2 X10*3/uL) 1.4 H (Ref Range: 0.1-1.2 X10*3/uL) Eosinophils Absolute Auto 0.2 (Ref Range: 0.0-0.4 X10*3/uL) 0.3 (Ref Range: 0.0-0.4 X10*3/uL) 0.0 (Ref Range: 0.0-0.4 X10*3/uL) Basophils Absolute Auto 0.1 (Ref Range: 0.0-0.2 X10*3/uL) 0.1 (Ref Range: 0.0-0.2 X10*3/uL) 0.1 (Ref Range: 0.0-0.2 X10*3/uL) NRBC Abs Auto 0.000 (Ref Range: 0.0-0.012 X10*3/uL) 0.000 (Ref Range: 0.0-0.012 X10*3/uL) 0.000 (Ref Range: 0.0-0.012 X10*3/uL) * Lab:Urine Culture * Collection Date 05/23/2025 02/22/2025 Collection Time 09:38 AM 07:52 PM Order Date 05/23/2025 02/22/2025 Urine Culture > 100,000 cfu/mL No growth. Ampicillin <=2 S NR Levofloxacin 0.5 S NR Nitrofurantoin <=16 S NR O:ENTFAC Enterococcus faecali s NR Tetracycline >=16 R NR Vancomycin 1 S NR * Examination: G eneral Examination: GENERAL APPEARANCE: p leasant, well nourished, well developed, in no acute distress, calm and relaxed: overweight: man: overweight: man. HEAD: a traumatic, normocephalic. EYES: [...] pulmonary disease, unspecified COPD type - J44.9 (Primary) ?Notes :He will continue to see the entry level manager regularly. The 6 mm pulmonary nodule will be followed carefully. He is no longer smoking. He will exercise regularly. He will continue to use his nebulizer and his new inhaler. 2 . F ormer smoker - Z87.891 N otes :He is highly motivated not to smoke. We discussed a plan to prevent relapse in times of stress and illness. 3 . G astroesophageal reflux disease without esophagitis - K21.9 ?Notes :His symptoms are well-controlled with current regimen. No change was necessary today. 4 . B enign prostatic hypertrophy - N40.0 N otes :He recently became unable to sleep and has overflow incontinence with a massively distended bladder. He has been hospitalized. 5 . O verweight (BMI 25.0-29.9) - E66.3 N otes :He is now overweight with a body mass index of 25.68. We discussed his weight loss strategy and I reinforced continued weight loss through diet restricted in fat calories and sodium. 6 . P ulmonary nodule less than 6 mm determined by computed tomography of lung - R91.1 N otes :The 6 mm left lower lobe nodule is stable on a CT scan done in January of this year. He will have an annual CT scan. 7 . U rine retention - R33.9 N otes :He was acutely ill and was taken to the emergency room at [facility] across the street from my office he was evaluated and subsequently admitted to the hospital.He was discharged after 6 days and spent 2 months in rehabilitation and is now living at home alone with nursing support. He has an indwelling Mojica catheter in place. He will see urology next week for an outpatient voiding trial. Plan: * Treatment: * Procedure Codes: * Preventive Medicine: Counseling: C are goal follow-up plan: Counseling for abnormal BMI given Y es Above Normal BMI Follow-up D ietary management education, guidance, and counseling S moking/Tobacco Use Patient counseled on the dangers of tobacco use and urged to quit. 1 COPD Care Plan: P atient Lifestyle Goals [...] Eat a healthy diet. * Follow Up: 6 Weeks (Reason: ov) * Images: * Sign off status: Completed true * Provider: Roddy Oreilly MD Date: Generated for Kobii saurabh/Luisag/eTransmitting on: 09/09/2024 07:39 PM EST History and Physical Notes * HPI (History of Present Illness) Category Sub-Category Detail Notes COVID-19 Screening Questions Have you had any new onset fever, chills, cough, congestion, sore throat, shortness of breath, muscle aches?: No Examination Category Sub-Category Detail Notes General Examination GENERAL APPEARANCE: pleasant , well nourished, well developed, in no acute distress, calm and relaxed: overweight: man: overweight: man HEAD: atraumatic, normocep halic EYES: [...]
--- OUTSIDE RECORDS SUMMARY | 2025-06-12 09:40 | XMS_ITS ---
Author Organization Thaddeus Oreilly III, MD Address [address] [place] [address] [place] [address] Care Team Providers Care Accreditation Specialist Name Role Phone Dr. Thaddeus Oreilly III Primary Care Provider REASON FOR VISIT Message Social History Sex Assigned At : Social History Observation Description Sex Assigned At Male Encounters Encounter Location Date Provider Diagnosis Thaddeus Oreilly III, MD [address] [place] [address] [place] [address] 06/12/2025 Thaddeus Oreilly Plan Of Treatment Next Appt Details Provider Name:Thaddeus Oreilly , 07/24/2025 03:15:00 PM, [address] [place] [address] [place], [address], Provider Name:Thaddeus Oreilly , 11/06/2025 03:00:00 PM, [address] [place] [address] [place], [address], Progress Notes * CURT WOODSDOB:1950 (74 yo M)Acc No.[id number]:06/12/2025 Patient: Asa BÁRBARACURT :1950 A ge:74 Y S ex:Male Address:[address] [place] [address], [phone] * true * Date: Generated for Printi ng/Faxing/eTransmitting on: 09/09/2024 07:38 PM EST
--- OUTSIDE RECORDS SUMMARY | 2025-06-12 10:41 | XMS_ITS ---
Author Organization Thaddeus Oreilly III, MD Address [address] [place] [address] [place] [address] Care Team Providers Care Rawhide Trimmer Name Role Phone Dr. Thaddeus Oreilly III Primary Care Provider [phone] REASON FOR VISIT Safety Concern Social History Sex Assigned At : Social History Observation Description Sex Assigned At Male Encounters Encounter Location Date Provider Diagnosis Thaddeus Oreilly III, MD [address] [place] [address] [place] [address] 06/12/2025 Thaddeus Oreilly Plan Of Treatment Next Appt Details Provider Name:Thaddeus Oreilly , 07/24/2025 03:15:00 PM, [address] [place] [address] [place], [address], Provider Name:Thaddeus Oreilly , 11/06/2025 03:00:00 PM, [address] [place] [address] [place], [address], Progress Notes * CURT WOODSDOB:1950 (74 yo M)Acc No.[id number]:06/12/2025 Patient: Asa GRANGERCURT :1950 A ge:74 Y S ex:Male Address:[address] [place] [address], [phone] * true * Date: Generated for Printi ng/Faxing/eTransmitting on: 09/09/2024 07:39 PM EST
[2025-07-10] VITALS (16 sets, daily range): BP systolic 98–147; BP diastolic 37–100; PULSE 96–116; RESP 16–30; TEMP 36.5–37.8; O2SAT 95–100; BMI 25.4
--- NOTE | ~2025-07-10 | CT_ITS ---
CLINICAL HISTORY: urinary retention, ANGELA CT abdomen and pelvis without contrast Comparison: US/SR - US RENAL BI - 07/10/25 22:[address]/SR - CT ABDOMEN PELVIS WO IV CON - 02/22/25 20:02 EDT Findings: The lung bases are clear without effusion or consolidation. Liver, gallbladder, spleen, pancreas, and bilateral adrenal glands are within normal limits. Multiple punctate left intrarenal stones are present measuring up to 3 mm in the left lower pole. Mild hydroureteronephrosis is present without focal obstructions are radiopaque stones identified. Bladder is collapsed around a Mojica catheter with mild intraluminal air penetration to stranding around the bladder phipps, Nonspecific. Aorta is nonaneurysmal and contains moderate atherosclerotic calcification throughout. No abdominal or pelvic free fluid. No bowel obstruction, pneumoperitoneum, or pneumatosis. Appendix not visualized. Prostate unremarkable. Degenerative changes of the lower lumbar spine without acute osseous abnormality. No acute soft tissue abnormality. IMPRESSION: 1. Mild persistent right hydronephrosis with new right ureteral dilation and no left hydronephrosis. Stable punctate left intrarenal stones. 2. Mild bladder nonspecific bladder wall stranding could reflect cystitis in the appropriate clinical setting. This document has been electronically signed by: Marbin Genao MD on 07/11/2025 07:03:21
--- NOTE | ~2025-07-10 | XR_ITS ---
CLINICAL HISTORY: sepsis 1 view chest x-ray Comparison: CT/REG/SR - CT LUNG SCREENING - 01/17/23 16:16 EDT Findings: The lungs are clear. Heart size is normal. No acute fracture. IMPRESSION: 1. No acute findings. This document has been electronically signed by: Gaurav Spangler MD on 07/10/2025 19:31:24
--- NOTE | ~2025-07-10 | US_ITS ---
EXAMINATION: US RETROPERITONEAL LIMITED (RENAL ONLY) CLINICAL INFORMATION: Elevated creatinine, either.. COMPARISON: None available. TECHNIQUE: Retroperitoneal ultrasound of kidneys was performed. FINDINGS: RIGHT KIDNEY: 11.1 x 6.9 x 5.7 cm (SAG x AP x TRV). The kidney is normal in size, contour, and echogenicity. Renal cortical thickness is normal. Prominent renal pyramids are seen with punctate tiny calcification seen throughout. There is mild hydronephrosis LEFT KIDNEY: 12.5 x 6.9 x 6.5 cm (SAG x AP x TRV). The kidney is normal in size, contour, and echogenicity. Renal cortical thickness is normal. There are prominent renal pyramids with calcification seen. There is mild hydronephrosis US/US renal BI IMPRESSION: Bilateral prominent renal pyramids with punctate tiny calcifications. There is mild bilateral hydronephrosis.. Electronically signed by: Pj Ewing MD 07/11/2025 07:17 AM CHARLY
--- OUTSIDE RECORDS SUMMARY | 2025-07-10 08:56 | XMS_ITS ---
Author Organization Thaddeus Oreilly III, MD Address [address] [place] [address] [place] [address] Care Team Providers Care Cosmetic Account Coordinator Name Role Phone Dr. Thaddeus Oreilly III Primary Care Provider REASON FOR VISIT Needs call back from Social History Sex Assigned At : Social History Observation Description Sex Assigned At Male Encounters Encounter Location Date Provider Diagnosis Thaddeus Oreilly III, MD [address] [place] [address] [place] [address] 07/10/2025 Thaddeus Oreilly Plan Of Treatment Next Appt Details Provider Name:Thaddeus Oreilly , 07/24/2025 03:15:00 PM, [address] [place] [address] [place], [address], Provider Name:Thaddeus Oreilly , 11/06/2025 03:00:00 PM, [address] [place] [address] [place], [address], Progress Notes * CURT WOODSDOB:1950 (74 yo M)Acc No.[id number]:07/10/2025 Patient: Asa BÁRBARACURT :1950 A ge:74 Y S ex:Male Address:[address] [place] [address], [phone] * * Date:
[2025-07-10 18:01] LABS: MANUAL DIFF FLAG NO
[2025-07-10 18:02] LABS: Hematocrit 38.2 % (42.0-52.0); Hemoglobin 12.8 g/dl (14.0-18.0); Imm Gran Abs Auto 0.08 X10*3/uL (0.00-0.03); Imm Gran Pct Auto 0.4 % (0.0-0.4); Lymphocytes Absolute Auto 0.3 X10*3/uL (1.2-4.9); Mean Corpuscular HGB Conc 33.5 g/dl (31.0-36.0); Mean Corpuscular Hemoglobin 29.8 pg (27.0-33.0); Mean Corpuscular Volume 89.0 fL (80.0-98.0); NRBC Abs Auto 0.000 X10*3/uL (0.0-0.012); NRBC Pct Auto 0.0 /100WBC (0.0-0.2); Platelet Count 232 X10*3/uL (160-400); Red Blood Count 4.29 X10*6/uL (4.60-5.80); SCAN SMEAR FLAG 1; White Blood Count 21.7 X10*3/uL (4.8-10.8)
[2025-07-10 18:10] LABS: INTERNATIONAL NORM RATIO 1.3 (0.9-1.1); Prothrombin Time 15.4 SEC (11.2-13.5)
[2025-07-10 18:13] LABS: Partial Thromboplastin Time 26.0 SEC (26.7-34.1)
[2025-07-10 18:18] LABS: Anion Gap 19 (12-20); Calcium 10.3 mg/dL (8.4-10.2); Carbon Dioxide 18 mmol/L (22-29); Chloride 105 mmol/L (96-108); Creatinine Clr Calc Pharmacy 9.3; Estimated Glomerular Filt Rate 7; Potassium 5.7 mmol/L (3.3-5.1); Sodium 136 mmol/L (135-145)
[2025-07-10] MEDS: SODIUM CHLORIDE 2688 ML IV (18:23)
[2025-07-10] MEDS: vancomycin/NS 2,000 MG/500 ML PLAST..BAG 250 MG IV (18:23)
--- NOTE | 2025-07-10 18:27 | PC.NURSE ---
Pt presented to ED via EMS as sepsis alert. C.C: Pt lives at home alone, takes care of himself. Has had chronic ennis X4 months, the outer part broke off 4 days ago per pt. Pt has no been able to urinate x4 days, says he procrastinated and did not want to get seen. ABD distended. On arrival, while deflating old ennis to removed, a large amount of urine drained from pts bladder, foul smelling, cloudy. New ennis placed per MD orders, 16 fr, immediate drainage of over 300 mL, bloody and cloudy urine. Bladder scan showed approx 500 mL remained, MD at bedside doing ultrasound. Pt meets sepsis criteria, tachy, tachypneic, mild fever rectally, infection source. Orders placed and orders followed. Delay in second set due to tech looking for spot to draw blood. Pt is alert and oriented, breathing rapid. Skin pale and clammy. Wound noted to sacral area, redness, no open area, pink foam placed. Pt cleaned and changed. IVs placed, meds per NOV. Vitals monitored frequently.
[2025-07-10 18:30] LABS: Blood Urea Nitrogen 123 mg/dL (9-16)
--- NOTE | 2025-07-10 18:34 | ED.MALEGU ---
HPI - Male Genitourinary General Chief complaint: Urogenital-Male Stated complaint: weakness, chills, warm to touch,hazy urine Time Seen by Provider: 07/10/25 17:30 History of Present Illness ED Provider: murali HPI Narrative: [age] male with indwelling Mojica for months presents for generalized weakness weight loss inability urinate out of the Mojica for a few days. Patient is otherwise poor historian does feel some lower abdominal fullness. No fever reported. Some weight loss and generalized malaise. No cough difficulty breathing flank pain Related Data Home Medications ?Medication ?Instructions ?Recorded ?Confirmed omeprazole 20 mg capsule,delayed 20 mg PO DAILY@0630 07/14/20 07/10/25 release nebulizers 12/13/22 05/23/25 acetaminophen 325 mg tablet 650 mg PO Q6H PRN Pain 02/22/25 07/10/25 alfuzosin 10 mg tablet,extended 10 mg PO DAILY 07/10/25 07/10/25 release 24 hr fluticasone furoate 200 1 ea inhalation DAILY 07/10/25 07/10/25 mcg-vilanterol 25 mcg/dose inhalation powder (Breo Ellipta) budesonide 0.5 mg/2 mL suspension 0.5 mg inhalation BID 07/11/25 07/11/25 for nebulization multivit,Ca,min-iron 8 mg-folic 1 tab PO DAILY 07/11/25 07/11/25 acid 200 mcg-lycopene 600 mcg tablet (Centrum Men) Previous Rx's ?Medication ?Instructions ?Recorded montelukast 10 mg tablet 10 mg PO BEDTIME 30 days #30 tabs 11/26/24 (Singulair) finasteride 5 mg tablet 5 mg PO DAILY BPH 90 days #90 tabs 02/24/25 tamsulosin 0.4 mg capsule 0.4 mg PO BEDTIME Help with 05/23/25 urinary flow 90 days #90 caps albuterol sulfate 2.5 mg/3 mL 2.5 mg (3 mL) inhalation Q4H PRN 06/03/25 (0.083 %) solution for nebulization shortness of breath or wheezing 30 days #360 mL albuterol sulfate 90 mcg/actuation 2 puff inhalation QID PRN 06/11/25 aerosol inhaler (Ventolin HFA) shortness of breath or wheezing #18 grams Allergies Allergy/AdvReac Type Severity Reaction Status Date / Time No Known Allergies Allergy Verified 07/10/25 17:37 FOR[facility]LY [facility] Past Medical History Medical History BPH (benign prostatic hyperplasia) Chronic indwelling Mojica catheter Elevated PSA measurement Pulmonary nodule Personal history of nicotine dependence Dyspnea COPD (chronic obstructive pulmonary disease) Surgical History Hx of appendectomy Social History Social History Household Members: Other Household Members Other:: lives by himself Housing: House Do you presently have visiting nurse or other home services: Yes Patient Tobacco Use Status: Former Tobacco user Tobacco use type: Cigarette and Cigar Years Smoked: Since 12 years old Second Hand Smoke Exposure: No service: No Physical Exam Exam: Exam: EXAM: Gen: Alert, dry appearing but comfortable not distressed Head: Atraumatic Eyes: Anicteric, Normal conjunctiva. ENT: Moist mucosa, no pallor. ? Bilateral Skin: ?No observable rash or bruising on exposed or examined skin Respiratory: Breathing comfortably, No distress.Clear to auscultation bilaterally, symmetric chest expansion, No wheeze, rales, ronchi. Cardiovascular: Regular rate and rhythm. No murmurs or rub. Well perfused periphery, warm extremities. No edema. ? Abdominal: Mild fullness in the suprapubic region with minimal tenderness otherwise No focal tenderness. Soft, no objective distension. No palpable masses or obvious organomegaly. ?No guarding, no rebound tenderness or other peritoneal findings. : Mild flank tenderness Neuro: Alert. Gross movement of all extremities intact. ? Psych: Calm. Cooperative. MSK: No grossly visible deformity. Vital signs: See flowsheet Vital Signs: Vital Signs: Last Vital Signs Temp 98 F 07/13/25 07:11 Pulse 75 07/13/25 07:55 Resp 16 07/13/25 07:55 BP 138/73 07/13/25 07:11 Pulse Ox 95 07/13/25 07:11 O2 Del Method Room Air 07/13/25 07:11 BMI result Body Mass Index 25.4 Course Reevaluation(s) Reevaluation #1: 9:14 PM [facility] Focused sepsis reexamination. Initial lactic acid 1.9. No hypotension or elevated lactate however sepsis/severe sepsis met due to creatinine Medications Administered Generic Name Dose Route Start Last Admin Trade Name Dipika PRN Reason Stop Dose Admin Budesonide 0.5 mg 07/12/25 09:00 07/13/25 07:54 Budesonide 0.5 Mg/2 Ml Ampul.Neb INHALE 0.5 mg BID LAWSON Administration Finasteride 5 mg 07/12/25 09:00 07/13/25 09:14 Finasteride 5 Mg Tablet PO 5 mg DAILY LAWSON Administration Fluticasone/Vilanterol 1 puff 07/12/25 08:00 07/13/25 07:54 Fluticasone/Vilanterol /25 Blst.W.Dev INHALE 1 puff RDAILY LAWSON Administration Heparin Sodium (Porcine) 5,000 unit 07/10/25 22:00 07/13/25 09:14 Heparin Sodium,Porcine 5,000 Unit/Ml Vial SUBCUT 5,000 unit Q12H LAWSON Administration Ceftriaxone Sodium 2 gm/ 50 mls @ 100 mls/hr 07/11/25 18:00 07/12/25 18:00 Sodium Chloride IV Infused Q24H LAWSON Infusion Montelukast Sodium 10 mg 07/12/25 08:00 07/12/25 22:01 Montelukast Sodium 10 Mg Tablet PO 10 mg BEDTIME LAWSON Administration Multivitamins/Vitamin C 1 tab 07/12/25 09:00 07/13/25 09:14 Multivitamin Tablet PO 1 tab DAILY LAWSON Administration Omeprazole 20 mg 07/12/25 08:00 07/13/25 06:16 Omeprazole 20 Mg Capsule. PO 20 mg DAILY@0630 LAWSON Administration Sodium Chloride 3 ml 07/11/25 00:00 07/13/25 09:15 0.9 % Sodium Chloride Flush 3 Ml Syringe IVFLUSH 3 ml QSHIFT LAWSON Administration Tamsulosin HCl 0.4 mg 07/12/25 09:00 07/13/25 09:14 Tamsulosin Hcl 0.4 Mg Capsule PO 0.4 mg DAILY LAWSON Administration Tamsulosin HCl 0.4 mg 07/12/25 21:00 07/12/25 22:01 Tamsulosin Hcl 0.4 Mg Capsule PO 0.4 mg BEDTIME LAWSON Administration Discontinued Medications Generic Name Dose Route Start Last Admin Trade Name Freq PRN Reason Stop Dose Admin Furosemide 40 mg 07/10/25 18:49 07/10/25 19:06 Furosemide 40 Mg/4 Ml Vial IVPUSH 07/10/25 18:50 40 mg STAT STA Administration Protocol Ceftriaxone Sodium 2 gm/ 100 mls @ 200 mls/hr 07/10/25 17:36 07/10/25 18:37 Sodium Chloride IV 07/10/25 18:05 Infused ONCE ONE Infusion Vancomycin HCl 2,000 mg in 500 mls @ 250 mls/hr 07/10/25 18:16 07/10/25 20:28 Vancomycin/Ns IV 07/10/25 20:15 Infused ONCE ONE Infusion Sodium Chloride 2,688 mls @ 2,688 mls/hr 07/10/25 18:17 07/10/25 19:20 Ns 30 ml/kg infuse over 1 hr (2688 ml) 07/10/25 19:16 Infused IV Infusion .Q1H STA Calcium Gluconate 1 gm in 50 mls @ 50 mls/hr 07/10/25 18:49 07/10/25 20:28 Calcium Gluconate IV 07/10/25 19:48 Infused ONCE ONE Infusion Influenza Virus Vaccine 0.5 ml 07/11/25 16:00 07/11/25 17:18 Flu Vacc [id number](6mo Up)/Pf 0.5 Ml Syringe IM 07/11/25 16:01 0.5 ml .ONCE ONE Administration Lidocaine HCl 10 ml 07/10/25 19:55 07/10/25 20:40 Lidocaine Hcl 2 % Urojet 10 Ml Jel.Pf.Sherry TOPICAL 07/10/25 19:56 10 ml ONCE ONE Administration Lidocaine HCl 10 ml 07/10/25 19:56 07/10/25 20:40 Lidocaine Hcl 2 % Urojet 10 Ml Jel.Pf.Sherry TOPICAL 07/10/25 19:57 10 ml ONCE ONE Administration Lidocaine HCl 60 ml 07/10/25 20:14 07/10/25 20:40 Lidocaine Hcl 2 % Urojet 10 Ml Jel.Pf.Sherry TOPICAL 07/10/25 20:15 Not Given ONCE ONE Sodium Zirconium Cyclosilicate 10 gm 07/10/25 18:49 07/10/25 19:06 Sodium Zirconium Cyclosilicate 10 Gm Powd.Pack PO 07/10/25 18:50 10 gm ONCE ONE Administration Medical Decision Making Medical Decision Making [facility] Narrative: Medical Decision Makin-year-old male with decreased urine output from Mojica. BPH. Febrile tachycardic borderline low blood pressure. Sepsis activated on arrival. 30 cc/kg. Labs came back showing severe acute kidney injury with hyperkalemia. Patient was given calcium Lokelma and Lasix while we worked on bladder drainage. Patient arrived with what looked like a damaged Mojica. This was removed and he was dribbling small amount of urine but the bladder was not emptying. I made multiple attempts including 14 Armenian, [address], and 20 Armenian coude catheter. These were unsuccessful I reached out to urology for guidance. He advised a 60 cc sterile lubrication injection into the urethra to prop up in the prostatic urethra. This was successful and I introduced a 20 Armenian coude catheter successfully 30 cc inflated in the Mojica balloon. This was confirmed on ultrasound with active drainage of the bladder. The patient has presumed ANGELA, severe with hyperkalemia secondary to urinary retention/prostatic urethra obstruction. We are obviously beginning to drain this and he was given temporizing hyperkalemic treatment until we can adequately hydrate and diurese. Repeat chemistry was performed. Patient was covered broadly and treated for sepsis Preliminary Favored Differential Diagnosis: [ ] among additional considered etiologies Testing Interpreted Independently: ?See below for details Radiology or Lab testing Results Reviewed: ?See below for details Consults: ?See below for details Independent Historians/External Chart Reviews: ?See below for details Social Determinants of Health Impacting MDM/Planning: ?See below for details Lab Data 07/12/25 05:51 07/13/25 09:50 Labs: Lab Results 07/10/25 07/10/25 07/10/25 Range/Units 17:57 18:10 20:57 WBC 21.7 H (4.8-10.8) X10*3/uL RBC 4.29 L (4.60-5.80) X10*6/uL Hgb 12.8 L (14.0-18.0) g/dl Hct 38.2 L (42.0-52.0) % MCV 89.0 (80.0-98.0) fL MCH 29.8 (27.0-33.0) pg MCHC 33.5 (31.0-36.0) g/dl RDW 15.5 (11.0-16.0) % Plt Count 232 D (160-400) X10*3/uL MPV 9.1 L (9.4-12.4) fL Immature Gran % (Auto) 0.4 (0.0-0.4) % Neut % (Auto) 89.7 H (45-73) % Lymph % (Auto) 1.3 L (20-40) % Shawnee % (Auto) 8.0 (2-11) % Eos % (Auto) 0.4 (0-4) % Baso % (Auto) 0.2 (0-2) % Lymph # (Auto) 0.3 L (1.2-4.9) X10*3/uL Shawnee # (Auto) 1.7 H (0.1-1.2) X10*3/uL Eos # (Auto) 0.1 (0.0-0.4) X10*3/uL Baso # (Auto) 0.0 (0.0-0.2) X10*3/uL Abs Immat Gran (auto) 0.08 H (0.00-0.03) X10*3/uL Absolute Neuts (auto) 19.5 H (2.0-8.3) x10*3/uL Absolute Nucleated RBC 0.000 (0.0-0.012) X10*3/uL Nucleated RBC % (auto) 0.0 (0.0-0.2) /100WBC PT 15.4 H (11.2-13.5) SEC INR 1.3 H (0.9-1.1) APTT 26.0 L (26.7-34.1) SEC Sodium 136 139 (135-145) mmol/L Potassium 5.7 H D 4.8 (3.3-5.1) mmol/L Chloride 105 109 H (96-108) mmol/L Carbon Dioxide 18 L 17 L (22-29) mmol/L Anion Gap 19 18 (12-20) BUN 123 H 124 H (9-16) mg/dL Creatinine 7.79 H* 6.79 H* (0.5-1.4) mg/dL Estim Creat Clear Calc 9.3 10.7 Estimated GFR 7 8 Random Glucose 99 80 (60-115) mg/dL Lactic Acid 1.9 (0.5-2.0) mmol/L Calcium 10.3 H 9.4 D (8.4-10.2) mg/dL Total Bilirubin 0.4 (0.0-1.0) mg/dL Urine Color Yellow Urine Appearance Turbid Urine pH 7.0 (5.0-9.0) Ur Specific Firth 1.015 (1.005-1.025) Urine Protein 300 (3+) H (Neg-Trace) mg/dL Urine Glucose (UA) Negative (Negative) mg/dL Urine Ketones Negative (Negative) mg/dL Urine Blood Large (3+) H (Negative) Urine Nitrite Negative (Negative) Ur Leukocyte Esterase Large (3+) H (Negative) Urine RBC >20 H (0-2) /HPF Urine WBC >50 H (0-5) /HPF Ur Squamous Epith Cells 3-5 (0-2) /HPF Urine Bacteria 4+ (None Seen) Hyaline Casts 11-20 (0-2) /LPF Procedures Procedure Narrative Procedure Narrative: Arrival: EMERGENCY ULTRASOUND INTERPRETATION-Limited Retroperitoneal (Renal) [This study was ordered, performed, and interpreted by myself. The study reveals: Impression: Distended bladder greater than 500 cc with sediment and echogenic urine. Prostatic enlargement seen. No Mojica balloon on arrival bilateral hydronephrosis [Indication: FLANK PAIN Bladder: Distended bladder greater than 500 cc with sediment an echogenic urine Right Kidney: Mild to moderate hydronephrosis Left Kidney: Mild hydronephrosis Performed by: Vic Wolfe MD Images were stored CPT: 39168] __ Repeat shows Mojica balloon in appropriate place after multiple attempts. Critical Care Time Critical Care Time Critical Care Time: Yes Total Critical Care Time: 130 Attestation: ED Critical Care: Severe sepsis, acute renal failure from obstructive uropathy Frequent bedside reassessments, discussion with consultants [facility] at length Authorized and Performed by: Vic Wolfe MD Total critical care time: Approximately 130 min Due to a high probability of clinically significant, life threatening deterioration, the patient required my highest level of preparedness to intervene emergently and I personally spent this critical care time directly and personally managing the patient. This critical care time included obtaining a history; examining the patient; pulse oximetry; ordering and review of studies; arranging urgent treatment with development of a management plan; evaluation of patient's response to treatment; frequent reassessment; and, discussions with other providers. This critical care time was performed to assess and manage the high probability of imminent, life-threatening deterioration that could result in multi-organ failure. It was exclusive of separately billable procedures and treating other patients and teaching time. Discharge Plan Discharge Clinical Impression: Sepsis Patient Disposition: Admitted As Inpatient Interventions: Admission Worksheet (ED) Last Done: 07/11/25 11:01 Discharge Date/Time: 07/11/25 11:32
[2025-07-10 18:36] LABS: Appearance Urine Turbid; Glucose Urine UA Negative (Negative); PH 7.0 (5.0-9.0); Specific Gravity - Urine 1.015 (1.005-1.025); UMIC TRIGGER UACC YES
--- NOTE | 2025-07-10 18:37 | PC.NURSE ---
Delay in orders due to sepsis alert called when pt on EMS stretcher. Emergent issue with pts ennis causing it to come out and be emergently replaced, at bedside doing ultrasound during this, aware.
[2025-07-10] MEDS: Calcium Gluconate/NaCl,Iso-Osm 1 GM/50 ML PLAST..BAG IV (19:06)
[2025-07-10] MEDS: Furosemide 40 MG/4 ML VIAL IVPUSH (19:06)
--- NOTE | 2025-07-10 19:10 | PC.NURSE ---
this rn assumed care of pt, pt resting in stretcher, a&ox4, respirations even and unlabored. pt offers no complaints at this time. pt sinus tach on tele 100-105 and tachypnic at 25rr. 20g placed in right hand and pt medicated per mar. sepsis fluids remain administering at this time
[2025-07-10 19:27] LABS: UACC Culture Trigger YES
--- OUTSIDE RECORDS SUMMARY | 2025-07-10 19:36 | XMS_ITS | Encounter Summary ---
Author Organization [facility] Address [address] [place] [address] Care Team Providers Care Switchman Supervisor Name Role Phone Tyler Castillo MD Primary Care Provider Encounter Details Date Type Department Care Team (Late st Contact Info) Description 04/04/2025 Lab Requisition [facility] Lab [address] [facility] [place] [address] Scott Starr MD [address] [place] [id number] Diarrhea, unspecified Social History Tobacco Use Types [...] documented as of this encounter Care Teams Switchman Supervisor Relationship Specialty Start Date End Date Tyler Castillo MD [address] [place] [id number] PCP - General Internal Medicine 10/20/15 documented as of this encounter
--- OUTSIDE RECORDS SUMMARY | 2025-07-10 19:36 | XMS_ITS | Encounter Summary ---
Author Organization [facility] Address [address] [place] [address] Care Team Providers Care Locker Plant Attendant Name Role Phone Tyler Castillo MD Primary Care Provider [phone] Encounter Details Date Type Department Care Team (Late st Contact Info) Description 03/18/2025 Lab Requisition [facility] - Main Lab [address] [facility] [place] [address] Scott Starr MD [address] [place], [place] [id number] Anemia, unspecified Social History Tobacco Use Types [...] Hold for add-ons. 03/19/2025 11:01 AM EDT [facility] Comment:Auto resulted. Blood Venous blood specimen / Unknown Venipuncture / Unknown 03/19/2025 8:12 AM EDT 03/19/2025 9:04 AM EDT us Scott Starr MD LAB BLOOD ORDERABLES Final Result [facility] [address] [place] [address], [place] [phone] * SST tube (03/19/2025 8:12 AM EDT) Extra Tube Hold for add-ons. 03/19/2025 11:01 AM EDT [facility] Comment:Auto resulted. Blood Venous blood specimen / Unknown Venipuncture / Unknown 03/19/2025 8:12 AM EDT 03/19/2025 9:04 AM EDT us Scott Starr MD LAB BLOOD ORDERABLES Final Result [facility] [address] [place] [address], [place] [phone] * Cortisol (03/19/2025 8:12 AM EDT) Cortisol 35.1 mcg/dL LAB CHEMISTRY METHOD 03/19/2025 11:51 AM EDT [facility] Blood Venous blood specimen / Unknown Venipuncture / Unknown 03/19/2025 8:12 AM EDT 03/19/2025 9:04 AM EDT Narrative [facility] - 03/19/2025 11:51 AM EDT CORTISOL REFERENCE RANGE 8 AM SPEC: 5.0-23.0 mcg/dL 4 PM SPEC: 3.0-16.0 mcg/dL 8 PM SPEC: <5.0 mcg/dL us Scott Starr MD LAB BLOOD ORDERABLES Final Result Performing Organization Address [facility]/ZIP Co de Phone Number [facility] [address] [place] [address], [place] [phone] * Thyroid stimulating hormone (03/19/2025 8:12 AM EDT) Pathologist [facility] TSH 0.86 0.40 - 4.00 mcIU/mL LAB CHEMISTRY METHOD 03/19/2025 11:51 AM EDT [facility] Blood Venous blood specimen / Unknown Venipuncture / Unknown 03/19/2025 8:12 AM EDT 03/19/2025 9:04 AM EDT us Scott Starr MD LAB BLOOD ORDERABLES Final Result Performing Organization Address [facility] Co de Phone Number [facility] [address] [place] [address], [place] [phone] * Basic metabolic panel (03/19/2025 8:12 AM EDT) Pathologist [facility] Sodium 137 133 - 145 mmol/L LAB CHEMISTRY METHOD 03/19/2025 10:43 AM EDT [facility] Potassium 4.5 3.5 - 5.5 mmol/L LAB CHEMISTRY METHOD 03/19/2025 10:43 AM EDT [facility] Chloride 105 96 - 110 mmol/L LAB CHEMISTRY METHOD 03/19/2025 10:43 AM EDT [facility] CO2 23 21 - 32 mmol/L LAB CHEMISTRY METHOD 03/19/2025 10:43 AM EDT [facility] Anion Gap 9 3 - 11 LAB CHEMISTRY METHOD 03/19/2025 10:43 AM T [facility] Glucose 94 70 - 100 mg/dL LAB CHEMISTRY METHOD 03/19/2025 10:43 AM [facility] BUN 18 5 - 25 mg/dL LAB CHEMISTRY METHOD 03/19/2025 10:43 AM [facility] Creatinine 1.10 0.70 - 1.30 mg/dL LAB CHEMISTRY METHOD 03/19/2025 10:43 AM T [facility] eGFR 70 >=60 mL/min/1. 73m2 LAB CHEMISTRY METHOD 03/19/2025 10:43 AM [facility] Comment:Calculation based on the Chronic Kidney Disease Epidemiology Collaboration (CKD-EPI) equation refit without adjustment for race. BUN/Creatinine Ratio 16.4 LAB CHEMISTRY METHOD 03/19/2025 10:43 AM [facility] Calcium 9.5 8.5 - 10.5 mg/dL LAB CHEMISTRY METHOD 03/19/2025 10:43 AM [facility] Blood Venous blood specimen / Unknown Venipuncture / Unknown 03/19/2025 8:12 AM EDT 03/19/2025 9:04 AM EDT Scott Starr MD LAB BLOOD ORDERABLES Final Result [facility] [address] [place] [address], * Complete blood count (03/19/2025 8:12 AM EDT) WBC 10.7 4.8 - 10.8 K/mcL LAB HEMETOLOGY METHOD 03/19/2025 9:33 AM EDT [facility] RBC 5.10 4.50 - 5.50 M/mcL LAB HEMETOLOGY METHOD 03/19/2025 9:33 AM EDT [facility] Hemoglobin 15.1 13.5 - 17.5 g/dL LAB HEMETOLOGY METHOD 03/19/2025 9:33 AM EDT [facility] Hematocrit 46.1 42.0 - 54.0 % LAB HEMETOLOGY METHOD 03/19/2025 9:33 AM EDT [facility] MCV 91.3 79.0 - 98.0 FL LAB HEMETOLOGY METHOD 03/19/2025 9:33 AM EDT [facility] MCH 29.9 27.0 - 32.0 pcg LAB HEMETOLOGY METHOD 03/19/2025 9:33 AM EDT [facility] MCHC 32.8 32.0 - 37.0 g/dL LAB HEMETOLOGY METHOD 03/19/2025 9:33 AM EDT [facility] RDW 13.4 11.0 - 15.0 % LAB HEMETOLOGY METHOD 03/19/2025 9:33 AM EDT [facility] Platelets 400 130 - 400 K/mcL LAB HEMETOLOGY METHOD 03/19/2025 9:33 AM EDT [facility] MPV 9.1 7.0 - 11.0 FL LAB HEMETOLOGY METHOD 03/19/2025 9:[facility] NRBC 0.0 <1.0 % LAB HEMETOLOGY METHOD 03/19/2025 9:33 AM EDT [facility] NRBC Absolute 0.00 <0.10 K/mcL LAB HEMETOLOGY METHOD 03/19/2025 9:33 AM EDT [facility] Blood Venous blood specimen / Unknown Venipuncture / Unknown 03/19/2025 8:12 AM EDT 03/19/2025 9:04 AM EDT us Scott Starr MD LAB BLOOD ORDERABLES Final Result [facility] [address] [place] [address], documented in this encounter Visit Diagnoses Diagnosis Anemia, unspecified documented in this encounter Additional Health Concerns Infection Onset Date Last Indicated Resolved Time C. difficile Rule-Out 04/04/2025 04/04/20252024 12:46 PM EDT documented as of this encounter Care Teams Locker Plant Attendant Relationship Specialty Start Date End Date Tyler Castillo MD [address] [place] [address] PCP - General Internal Medicine 10/20/15 documented as of this encounter
--- OUTSIDE RECORDS SUMMARY | 2025-07-10 19:36 | XMS_ITS | Encounter Summary ---
Author Organization [facility] Address [address] [place] [address] Care Team Providers Care Riffler Tender Name Role Phone Tyler Castillo MD Primary Care Provider [phone] Encounter Details Date Type Department Care Team (Late st Contact Info) Description 03/25/2025 Lab Requisition [facility] - Main Lab [address] [place] [address] Scott Starr MD [address] [place], [place] [phone] Anemia, unspecified Social History Tobacco Use Types [...] LAB CHEMISTRY METHOD 03/26/2025 11:14 AM EDT [facility] Potassium 5.0 3.5 - 5.5 mmol/L LAB CHEMISTRY METHOD 03/26/2025 11:14 AM [facility] Chloride 105 96 - 110 mmol/L LAB CHEMISTRY METHOD 03/26/2025 11:14 AM [facility] CO2 26 21 - 32 mmol/L LAB CHEMISTRY METHOD 03/26/2025 11:14 AM [facility] Anion Gap 7 3 - 11 LAB CHEMISTRY METHOD 03/26/2025 11:14 AM [facility] Glucose 85 70 - 100 mg/dL LAB CHEMISTRY METHOD 03/26/2025 11:14 AM [facility] BUN 18 5 - 25 mg/dL LAB CHEMISTRY METHOD 03/26/2025 11:14 AM [facility] Creatinine 1.06 0.70 - 1.30 mg/dL LAB CHEMISTRY METHOD 03/26/2025 11:14 AM [facility] eGFR 73 >=60 mL/min/1. 73m2 LAB CHEMISTRY METHOD 03/26/2025 11:14 AM [facility] Comment:Calculation based on the Chronic Kidney Disease Epidemiology Collaboration (CKD-EPI) equation refit without adjustment for race. BUN/Creatinine Ratio 17.0 LAB CHEMISTRY METHOD 03/26/2025 11:14 AM [facility] Calcium 9.5 8.5 - 10.5 mg/dL LAB CHEMISTRY METHOD 03/26/2025 11:14 AM [facility] Blood Venous blood specimen / Unknown Venipuncture / Unknown 03/26/2025 8:08 AM EDT 03/26/2025 10:22 AM EDT us Scott Starr MD LAB BLOOD ORDERABLES Final Result [facility] [address] [place] [address], * Complete blood count (03/26/2025 8:08 AM EDT) WBC 9.5 4.8 - 10.8 K/[facility] LAB HEMETOLOGY METHOD 03/26/2025 10:51 AM [facility] RBC 4.70 4.50 - 5.50 M/[facility] LAB HEMETOLOGY METHOD 03/26/2025 10:51 AM [facility] Hemoglobin 13.9 13.5 - 17.5 g/dL LAB HEMETOLOGY METHOD 03/26/2025 10:51 AM [facility] Hematocrit 43.4 42.0 - 54.0 % LAB HEMETOLOGY METHOD 03/26/2025 10:51 AM [facility] MCV 91.6 79.0 - 98.0 FL LAB HEMETOLOGY METHOD 03/26/2025 10:51 AM [facility] MCH 29.3 27.0 - 32.0 pcg LAB HEMETOLOGY METHOD 03/26/2025 10:51 AM [facility] MCHC 32.0 32.0 - 37.0 g/dL LAB HEMETOLOGY METHOD 03/26/2025 10:51 AM [facility] RDW 14.1 11.0 - 15.0 % LAB HEMETOLOGY METHOD 03/26/2025 10:51 AM [facility] Platelets 378 130 - 400 K/[facility] LAB HEMETOLOGY METHOD 03/26/2025 10:51 AM [facility] MPV 9.5 7.0 - 11.0 FL LAB HEMETOLOGY METHOD 03/26/2025 10:51 AM [facility] NRBC 0.0 <1.0 % LAB HEMETOLOGY METHOD 03/26/2025 10:51 AM [facility] NRBC Absolute 0.00 <0.10 K/[facility] LAB HEMETOLOGY METHOD 03/26/2025 10:51 AM [facility] Blood Venous blood specimen / Unknown Venipuncture / Unknown 03/26/2025 8:08 AM EDT 03/26/2025 10:22 AM EDT Scott Starr MD LAB BLOOD ORDERABLES Final Result [facility] [address] [place] [address], documented in this encounter Visit Diagnoses Diagnosis Anemia, unspecified documented in this encounter Additional Health Concerns Infection Onset Date Last Indicated Resolved Time C. difficile Rule-Out 04/04/2025 04/04/20252024 12:46 PM EDT documented as of this encounter Care Teams Riffler Tender Relationship Specialty Start Date End Date Tyler Castillo MD [address] [place] [address] PCP - General Internal Medicine 10/20/15 documented as of this encounter
--- OUTSIDE RECORDS SUMMARY | 2025-07-10 19:36 | XMS_ITS | Encounter Summary ---
Author Organization [facility] Address [address] [place] [address] Care Team Providers Care Stockroom Clerk Name Role Phone Tyler Castillo MD Primary Care Provider [phone] Encounter Details Date Type Department Care Team (Late st Contact Info) Description 04/11/2025 Lab Requisition [facility] - Main Lab [address] [place] [address] Scott Starr MD [address] [place], [place] [phone] Anemia, unspecified; Other malaise Social History Tobacco [...] LAB CHEMISTRY METHOD 04/11/2025 10:12 AM EDT [facility] Potassium 3.8 3.5 - 5.5 mmol/L LAB CHEMISTRY METHOD 04/11/2025 10:12 AM [facility] Chloride 103 96 - 110 mmol/L LAB CHEMISTRY METHOD 04/11/2025 10:12 AM [facility] CO2 25 21 - 32 mmol/L LAB CHEMISTRY METHOD 04/11/2025 10:12 AM [facility] Anion Gap 8 3 - 11 LAB CHEMISTRY METHOD 04/11/2025 10:12 AM [facility] Glucose 78 70 - 100 mg/dL LAB CHEMISTRY METHOD 04/11/2025 10:12 AM [facility] BUN 33(H) 5 - 25 mg/dL LAB CHEMISTRY METHOD 04/11/2025 10:12 AM [facility] Creatinine 1.35(H) 0.70 - 1.30 mg/dL LAB CHEMISTRY METHOD 04/11/2025 10:12 AM [facility] eGFR 54(L) >=60 mL/min/1. 73m2 LAB CHEMISTRY METHOD 04/11/2025 10:12 AM [facility] Comment:Calculation based on the Chronic Kidney Disease Epidemiology Collaboration (CKD-EPI) equation refit without adjustment for race. BUN/Creatinine Ratio 24.4 LAB CHEMISTRY METHOD 04/11/2025 10:12 AM [facility] Calcium 8.3(L) 8.5 - 10.5 mg/dL LAB CHEMISTRY METHOD 04/11/2025 10:12 AM [facility] Blood Venous blood specimen / Unknown Venipuncture / Unknown 04/11/2025 4:58 AM EDT 04/11/2025 9:25 AM EDT us Scott Starr MD LAB BLOOD ORDERABLES Final Result [facility] [address] [place] [address], * (ABNORMAL) Complete blood count (04/11/2025 4:58 AM EDT) [facility] Signature WBC 18.4(H) 4.8 - 10.8 K/mcL LAB HEMETOLOGY METHOD 04/11/2025 9:41 AM [facility] RBC 3.90(L) 4.50 - 5.50 M/mcL LAB HEMETOLOGY METHOD 04/11/2025 9:41 AM [facility] Hemoglobin 11.5(L) 13.5 - 17.5 g/dL LAB HEMETOLOGY METHOD 04/11/2025 9:41 AM [facility] Hematocrit 34.7(L) 42.0 - 54.0 % LAB HEMETOLOGY METHOD 04/11/2025 9:41 AM [facility] MCV 89.9 79.0 - 98.0 FL LAB HEMETOLOGY METHOD 04/11/2025 9:41 AM [facility] MCH 29.8 27.0 - 32.0 pcg LAB HEMETOLOGY METHOD 04/11/2025 9:41 AM [facility] MCHC 33.1 32.0 - 37.0 g/dL LAB HEMETOLOGY METHOD 04/11/2025 9:41 AM [facility] RDW 13.9 11.0 - 15.0 % LAB HEMETOLOGY METHOD 04/11/2025 9:41 AM [facility] Platelets 326 130 - 400 K/mcL LAB HEMETOLOGY METHOD 04/11/2025 9:41 AM [facility] MPV 9.1 7.0 - 11.0 FL LAB HEMETOLOGY METHOD 04/11/2025 9:41 AM [facility] NRBC 0.0 <1.0 % LAB HEMETOLOGY METHOD 04/11/2025 9:41 AM EDT [facility] NRBC Absolute 0.00 <0.10 K/mcL LAB HEMETOLOGY METHOD 04/11/2025 9:41 AM EDT [facility] Blood Venous blood specimen / Unknown Venipuncture / Unknown 04/11/2025 4:58 AM EDT 04/11/2025 9:25 AM EDT us Scott Starr MD LAB BLOOD ORDERABLES Final Result [facility] [address] [place] [address], documented in this encounter Visit Diagnoses Diagnosis Anemia, unspecified Other malaise documented in this encounter Care Teams Stockroom Clerk Relationship Specialty Start Date End Date Tyler Castillo MD [address] [place] [address] PCP - General Internal Medicine 10/20/15 documented as of this encounter
--- OUTSIDE RECORDS SUMMARY | 2025-07-10 19:36 | XMS_ITS | Clinical Summary ---
Author Organization [address] Address [address] [place] [address] Phone Care Team Providers Care Insurance Agents Supervisor Name Role Phone Tyler Castillo MD Primary Care Provider [phone] Allergies No known active allergies Medications polyethylene glycol (COLYTE) 240-22.72-6.72 -5.84 gram solution Drink 8 oz every 15 mins over 2 sittings as directed. Finish the entire jug. 04/20/2016 Active Active Problems Problem Noted Date Diagnosed Date GERD (gastroesophageal reflux disease) 5 Glaucoma 2012 Encounters Date Type Department Care Team Description 04/23/2025 Lab Requisition [facility] [address] [place] [id number] Scott Starr MD Anemia, unspecified; Acute kidney failure, unspecified (CMS/[facility]ER[facility] V24) 04/15/2025 Lab Requisition [facility] [address] [place] [phone] Scott Starr MD Benign prostatic hyperplasia without lower urinary tract symptoms; Urinary tract infection, site not specified 04/11/2025 Lab Requisition [facility] [address] [place] [phone] Scott Starr MD Anemia, unspecified; Other malaise from Last 3 Months Immunizations Immunization Administration [...] Vaccine: 50+ Years (2 of 2 - PCV20 or PCV21) 05/26/2018 07/06/2018, 05/26/2017 RSV Immunization Adult Patients (1 - 1-dose 75+ series) 2023 Cholesterol Screening (Lipid Panel) 08/24/2024 03/05/2016 Falls Risk Assessment 08/24/2024 Hepatitis C Screening 08/24/2024 Medicare Annual Wellness Visit 08/24/2024 Social Influencers of Health Screening 08/24/2024 Depression Screening 09/05/2024 DTaP,Tdap,and Td Vaccines (2 - Td or Tdap) 11/18/2024 11/18/2014 COVID-19 Vaccine ( - season) 2025 Influenza Vaccine (#1) 2025 8, 05/26/2017, 07/07/2016, Additional history exists Abdominal Aortic Aneurysm (AAA) Screen Discontinued 12/06/2014 HIB Vaccines Aged Out No longer eligi [...] Anemia, unspecified Acute kidney failure, unspecified (CMS/[facility] V24) COMPLETE BLOOD COUNT Routine 04/23/2025 7:12 AM EDT Anemia, unspecified Acute kidney failure, unspecified (CMS/[facility]ER[facility] V24) COMPREHENSIVE METABOLIC PANEL Routine 04/16/2025 7:09 [...] 4:58 AM EDT Anemia, unspecified Other malaise LIPID PANEL Routine 03/05/2016 HM ABDOMINAL AORTIC ANEURYSM SCRREN Routine 12/06/2014 from Last 3 Months or Most Recently Relevant to Health Maintenance Results * (ABNORMAL) Complete blood count (04/23/2025 7:12 AM EDT) Only the most recent of3 resultswithin the time period is included. [facility] WBC 8.9 4.8 - 10.8 K/mcL LAB HEMETOLOGY METHOD 04/23/2025 9:48 AM [facility] RBC 4.10(L) 4.50 - 5.50 M/mcL LAB HEMETOLOGY METHOD 04/23/2025 9:48 AM [facility] Hemoglobin 12.0(L) 13.5 - 17.5 g/dL LAB HEMETOLOGY METHOD 04/23/2025 9:48 AM [facility] Hematocrit 37.6(L) 42.0 - 54.0 % LAB HEMETOLOGY METHOD 04/23/2025 9:48 AM [facility] MCV 91.0 79.0 - 98.0 FL LAB HEMETOLOGY METHOD 04/23/2025 9:48 AM [facility] MCH 29.1 27.0 - 32.0 pcg LAB HEMETOLOGY METHOD 04/23/2025 9:48 AM [facility] MCHC 31.9(L) 32.0 - 37.0 g/dL LAB HEMETOLOGY METHOD 04/23/2025 9:48 AM [facility] RDW 14.4 11.0 - 15.0 % LAB HEMETOLOGY METHOD 04/23/2025 9:48 AM [facility] Platelets 437(H) 130 - 400 K/mcL LAB HEMETOLOGY METHOD 04/23/2025 9:48 AM [facility] MPV 8.8 7.0 - 11.0 FL LAB HEMETOLOGY METHOD 04/23/2025 9:48 AM [facility] NRBC 0.0 <1.0 % LAB HEMETOLOGY METHOD 04/23/2025 9:48 AM [facility] NRBC Absolute 0.00 <0.10 K/mcL LAB HEMETOLOGY METHOD 04/23/2025 9:48 AM [facility] Blood Venous blood specimen / Unknown Venipuncture / Unknown 04/23/2025 7:12 AM EDT 04/23/2025 9:11 AM EDT us Scott Starr MD LAB BLOOD ORDERABLES Final Result [facility] [address] [place] [address], * Basic metabolic panel (04/23/2025 7:12 AM EDT) Only the most recent of2 resultswithin the time period is included. Sodium 139 133 - 145 mmol/L LAB CHEMISTRY METHOD 04/23/2025 10:03 AM [facility] Potassium 4.4 3.5 - 5.5 mmol/L LAB CHEMISTRY METHOD 04/23/2025 10:03 AM [facility] Chloride 107 96 - 110 mmol/L LAB CHEMISTRY METHOD 04/23/2025 10:03 AM [facility] CO2 28 21 - 32 mmol/L LAB CHEMISTRY METHOD 04/23/2025 10:03 AM [facility] Anion Gap 4 3 - 11 LAB CHEMISTRY METHOD 04/23/2025 10:03 AM [facility] Glucose 74 70 - 100 mg/dL LAB CHEMISTRY METHOD 04/23/2025 10:03 AM [facility] BUN 18 5 - 25 mg/dL LAB CHEMISTRY METHOD 04/23/2025 10:03 AM [facility] Creatinine 1.09 0.70 - 1.30 mg/dL LAB CHEMISTRY METHOD 04/23/2025 10:03 AM [facility] eGFR 70 >=60 mL/min/1. 73m2 LAB CHEMISTRY METHOD 04/23/2025 10:03 AM [facility] Comment:Calculation based on the Chronic Kidney Disease Epidemiology Collaboration (CKD-EPI) equation refit without adjustment for race. BUN/Creatinine Ratio 16.5 LAB CHEMISTRY METHOD 04/23/2025 10:03 AM [facility] Calcium 9.1 8.5 - 10.5 mg/dL LAB CHEMISTRY METHOD 04/23/2025 10:03 AM [facility] Blood Venous blood specimen / Unknown Venipuncture / Unknown 04/23/2025 7:12 AM EDT 04/23/2025 9:11 AM EDT us Scott Starr MD LAB BLOOD ORDERABLES Final Result [facility] [address] [place] [address], [place] [phone] * (ABNORMAL) Comprehensive metabolic panel (04/16/2025 7:09 AM EDT) Sodium 139 133 - 145 mmol/L LAB CHEMISTRY METHOD 04/16/2025 12:49 PM [facility] Potassium 4.4 3.5 - 5.5 mmol/L LAB CHEMISTRY METHOD 04/16/2025 12:49 PM [facility] Chloride 105 96 - 110 mmol/L LAB CHEMISTRY METHOD 04/16/2025 12:49 PM [facility] CO2 29 21 - 32 mmol/L LAB CHEMISTRY METHOD 04/16/2025 12:49 PM [facility] Anion Gap 5 3 - 11 LAB CHEMISTRY METHOD 04/16/2025 12:49 PM [facility] Glucose 85 70 - 100 mg/dL LAB CHEMISTRY METHOD 04/16/2025 12:49 PM [facility] BUN 21 5 - 25 mg/dL LAB CHEMISTRY METHOD 04/16/2025 12:49 PM [facility] Creatinine 1.10 0.70 - 1.30 mg/dL LAB CHEMISTRY METHOD 04/16/2025 12:49 PM [facility] eGFR 70 >=60 mL/min/1. 73m2 LAB CHEMISTRY METHOD 04/16/2025 12:49 PM [facility] Comment:Calculation based on the Chronic Kidney Disease Epidemiology Collaboration (CKD-EPI) equation refit without adjustment for race. BUN/Creatinine Ratio 19.1 LAB CHEMISTRY METHOD 04/16/2025 12:49 PM [facility] Calcium 8.5 8.5 - 10.5 mg/dL LAB CHEMISTRY METHOD 04/16/2025 12:49 PM [facility] AST (SGOT) 19 10 - 42 unit/L LAB CHEMISTRY METHOD 04/16/2025 12:49 PM [facility] ALT (SGPT) 29 10 - 60 unit/L LAB CHEMISTRY METHOD 04/16/2025 12:49 PM [facility] Alkaline Phosphatase 78 42 - 121 unit/L LAB CHEMISTRY METHOD 04/16/2025 12:49 PM [facility] Total Protein 6.6 6.0 - 8.0 g/dL LAB CHEMISTRY METHOD 04/16/2025 12:49 PM [facility] Albumin 2.5(L) 3.2 - 5.0 g/dL LAB CHEMISTRY METHOD 04/16/2025 12:49 PM [facility] Total Bilirubin 0.3 0.0 - 1.4 mg/dL LAB CHEMISTRY METHOD 04/16/2025 12:49 PM [facility] Blood Venous blood specimen / Unknown Venipuncture / Unknown 04/16/2025 7:09 AM EDT 04/16/2025 8:53 AM EDT us Scott Starr MD LAB BLOOD ORDERABLES Final Result [facility] [address] [place] [address], * (ABNORMAL) Lipid panel (03/05/2016) LDL/HDL Ratio 4 0 - 4 Triglycerides 140 0 - 150 mg/dL Cholesterol 188 0 - 200 mg/dL HDL 43 >=40 mg/dL LDL Cholesterol 117(A) 0 - 100 mg/dL Blood Venous blood specimen / Unknown us Historical Provider MD LAB BLOOD ORDERABLES Marilou l Result * Abdominal Aortic Aneurysm Screen (12/06/2014) Abdominal Aortic Aneurysm (AAA) Screening Abstracted Anatomical Region Laterality Modality Other Historical Provider HEALTH MAINTENANCE Final Result from Last 3 Months or Most Recently Relevant to Health Maintenance Insurance MEDICAID - [place] MEDICARE Care Teams Insurance Agents Supervisor Relationship Specialty Start Date End Date Tyler Castillo MD [address] [place] [address] PCP - General Internal Medicine 10/20/15
--- OUTSIDE RECORDS SUMMARY | 2025-07-10 19:37 | XMS_ITS | Encounter Summary ---
Author Organization [facility] Address [address] [place] [address] Care Team Providers Care Heater Installer Name Role Phone Tyler Castillo MD Primary Care Provider [phone] Encounter Details Date Type Department Care Team (Late st Contact Info) Description 04/07/2025 Lab Requisition [facility] Main Lab [address] [facility] [place] [address] Scott Starr MD [address] [place], [place] [id number] Painful micturition, unspecified; Frequency of micturition; Hematuria, [...] Pseudomonas aeruginosa(A) MIRIAM 04/10/2025 7:34 AM EDT [facility] Comment: This is an edited result. Previous organism was Gram negative bacilli on 04/08/2025 at 0830 EDT. Culture, Urine 10,000-49,000 CFU/mL Citrobacter freundii(A) MIRIAM 04/10/2025 7:34 AM EDT [facility] Comment: The organism value for this result has been updated. These results have been appended to the previously preliminary verified report. This is an edited result. Previous organism was Gram negative bacilli on 04/09/2025 at 0938 EDT. Culture, Urine 10,000-49,000 CFU/mL Enterococcus faecalis(A) MIRIAM 04/10/2025 7:34 AM EDT [facility] Comment: The organism [...] MIRIAM >=32 ug/ml: Resistant Citrobacter freundii Cefoxitin MIRAIM >=64 ug/ml: Resistant Citrobacter freundii Ceftazidime MIRIAM [...] LAB MICROBIOLOGY - GENERAL ORDERABLES Final Result [facility] [address] [place] [address], * (ABNORMAL) Urinalysis with reflex microscopic and culture (04/07/2025 12:00 AM EDT) Specific [place] Urine 1.015 1.003 - 1.030 LAB URINALYSIS - AUTOMATED METHOD 04/07/2025 10:07 AM EDT [facility] pH, Urine 6.0 5.0 - 8.0 pH LAB URINALYSIS - AUTOMATED METHOD 04/07/2025 10:07 AM EDT [facility] Leukocytes, Urine Large(A) Negative LAB URINALYSIS - AUTOMATED METHOD 04/07/2025 10:07 AM EDT [facility] Nitrite, Urine Negative Negative LAB URINALYSIS - AUTOMATED METHOD 04/07/2025 10:07 AM [facility] Protein, Urine 300(A) <=Trace mg/dL LAB URINALYSIS - AUTOMATED METHOD 04/07/2025 10:07 AM [facility] Glucose, Urine Negative Negative mg/dL LAB URINALYSIS - AUTOMATED METHOD 04/07/2025 10:07 AM [facility] Ketones, Urine Negative Negative mg/dL LAB URINALYSIS - AUTOMATED METHOD 04/07/2025 10:07 AM [facility] Urobilinogen , Urine 0.2 0.2 - 1.0 mg/dL LAB URINALYSIS - AUTOMATED METHOD 04/07/2025 10:07 AM [facility] Bilirubin, Urine Negative Negative LAB URINALYSIS - AUTOMATED METHOD 04/07/2025 10:07 AM [facility] Blood, Urine Large(A) Negative LAB URINALYSIS - AUTOMATED METHOD 04/07/2025 10:07 AM [facility] RBC, Urine 508.8(H) 0 - 4 /HPF LAB URINALYSIS - AUTOMATED METHOD 04/07/2025 10:07 AM [facility] WBC, Urine >4,000(H) 0 - 4 /HPF LAB URINALYSIS - AUTOMATED METHOD 04/07/2025 10:07 AM [facility] Squamous Epithelial, Urine 20 0 - 60 /LPF LAB URINALYSIS - AUTOMATED METHOD 04/07/2025 10:07 AM [facility] Bacteria, Urine Many(A) Negative /HPF LAB URINALYSIS - AUTOMATED METHOD 04/07/2025 10:07 AM [facility] Hyaline Casts, Urine 0.2 0 - 3 /LPF LAB URINALYSIS - AUTOMATED METHOD 04/07/2025 10:07 AM [facility] Urine Urine specimen obtained by clean catch procedure / Unknown 04/07/2025 04/07/2025 9:02 AM EDT us Scott Starr MD LAB URINE ORDERABLES Final Result Performing Organization Address [facility]/ZIP Co de Phone Number [facility] [address] [place] [address], [place] [phone] * [place] urine culture tube (04/07/2025 12:00 AM EDT) Extra Tube Hold for add-ons. 04/07/2025 11:01 AM EDT [facility] Comment:Auto resulted. Urine Urine specimen obtained by clean catch procedure / Unknown 04/07/2025 04/07/2025 9:02 AM EDT us Scott Starr MD LAB URINE ORDERABLES Final Result Performing Organization Address [facility] de Phone Number [facility] [address] [place] [address], [place] [phone] documented in this encounter Visit Diagnoses Diagnosis Painful micturition, unspecified Frequency of micturition Urinary frequency Hematuria, unspecified documented in this encounter Care Teams Heater Installer Relationship Specialty Start Date End Date Tyler Castillo MD [address] [place] [address] PCP - General Internal Medicine 10/20/15 documented as of this encounter
--- OUTSIDE RECORDS SUMMARY | 2025-07-10 19:38 | XMS_ITS | Patient Health Record ---
Author Organization Thaddeus Oreilly III, MD Address [address] [place] [address] [place] [address] Care Team Providers Care Magnet Placer Name Role Phone Dr. Thaddeus Oreilly III Primary Care Provider [phone] Allergies Allergen (clinical drug ingredient) Drug/Non Drug Allergy documented on EMR Reaction Allergy Type Onset Date Status No Known Drug Allergy Unknown Drug Allergy Active Results Component Value Reference Range Notes Complete Blood Count Auto Di ff Reviewed date:08/13/2024 04:55:29 AM Interpretation: Performing Lab:[facility], [address] [place] [phone] Notes/Report: White Blood Count 9.6 4.8-10.8 X10*3/uL [...] Panel Reviewed date:08/13/2024 04:55:29 AM Interpretation: Performing Lab:[address] [address] Notes/Report: Sodium 139 135-145 mmol/L Potassium 5.0 [...] Antigen Reviewed date:08/13/2024 04:55:29 AM Interpretation: Performing Lab:[address] [address] Notes/Report: Prostate Specific Antigen 4.00 <0.05- 4.0 ng/mL PSA methodology: VideoBurstnity i Chemiluminescent Microparticle Immunoassay (CMIA) Complete Blood Count Auto Di ff Reviewed date:11/05/2024 03:32:23 PM Interpretation: Performing Lab:[facility], [address] [place] [phone] Notes/Report: White Blood Count 7.8 4.8-10.8 X10*3/uL [...] NRBC Abs Auto 0.000 0.0-0.012 X10*3/uL Comprehensive [place]. Panel Fa st Reviewed date:11/05/2024 03:32:23 PM Interpretation: Performing Lab:[facility], [address] [place] [phone] Notes/Report: Sodium 139 135-145 mmol/L Potassium 4.4 [...] Panel Reviewed date:11/05/2024 03:32:23 PM Interpretation: Performing Lab:[facility], [address] [place] [phone] Notes/Report: Triglycerides 197 <150 mg/dL Desirable Triglyceride: [...] Antigen Reviewed date:11/05/2024 03:32:23 PM Interpretation: Performing Lab:[address] [address] Notes/Report: Prostate Specific Antigen 3.92 <0.05- 4.0 ng/mL PSA methodology: Whatley Alinity i Chemiluminescent Microparticle Immunoassay (CMIA) Complete Blood Count Auto Di ff Reviewed date:02/24/2025 01:37:52 PM Interpretation: Performing Lab:[facility], [address] [place] [phone] Notes/Report: White Blood Count 15.3 4.8-10.8 X10*3/uL [...] Panel Reviewed date:02/24/2025 01:37:52 PM Interpretation: Performing Lab:[facility], [address] [place] [phone] Notes/Report: Bilirubin Total 0.6 0.0-1.0 mg/dL Bilirubin Direct 0.3 0.0-0.5 mg/dL Aspartate Amino Transferase 22 5-37 U/L Alanine Aminotransferase 21 0-40 U/L Total Protein 7.4 6.5-8.0 g/dL Albumin Level 4.3 3.5-5.0 g/dL Alkaline Phosphatase 91 39-117 U/L Basic Metabolic Panel Reviewed date:02/24/2025 01:37:52 PM Interpretation: Performing Lab:[facility], [address] [place] [phone] Notes/Report: Sodium 142 135-145 mmol/L Potassium 4.5 [...] Acid Reviewed date:02/24/2025 01:37:52 PM Interpretation: Performing Lab:[facility], [address] [place] [phone] Notes/Report: Lactic Acid 1.0 0.5-2.0 mmol/L Magnesium Reviewed date:02/24/2025 01:37:52 PM Interpretation: Performing Lab:[facility], [address] [place] [phone] Notes/Report: Magnesium 2.3 1.6-2.6 mg/dL Urine Culture Reviewed date:02/24/2025 01:37:52 PM Interpretation: Performing Lab:[facility], [address] [place] [phone] Notes/Report: Urine Culture No growth. Blood Culture (First) Reviewed date:02/28/2025 04:32:50 AM Interpretation: Performing Lab:[facility], [address] [place] [phone] Notes/Report: Blood Culture (First) No growth after 5 days. Blood Culture (Second) Reviewed date:02/28/2025 04:32:50 AM Interpretation: Performing Lab:[facility], [address] [place] [phone] Notes/Report: Blood Culture (Second) No growth after 5 days. UA ClnCatch+Micro w/rflx Cul t Reviewed date:02/24/2025 01:37:52 PM Interpretation: Performing Lab:[facility], [address] [place] [phone] Notes/Report: [id number] Urine, Catheterized Color Urine Yellow Appearance Urine Clear PH 5.0 5.0-9.0 Glucose Urine UA Negative Negative mg/dL Urine Blood Small (1+) Negative Specific [place] - Urine 1.020 1.005-1.025 Urine Protein Negative [...] date:02/24/2025 01:37:52 PM Interpretation: Performing Lab: Notes/Report: [address] [address] [address] Scan Report Signed Patient: Curt Woods MR#: [id number] : 1950 Acct:[id number] Age/Sex: 74 / M ADM Date: 02/22/25 Loc: [facility] 468-[address]: Anupam Tate MD Ordering Physician: Francisco Blanton MD Date of Service: 02/22/25 Procedure(s): CT abdomen pelvis wo IV con Accession Number(s): [id number] cc: Thaddeus Oreilly MD; Francisco Blanton MD Report Number: [id number]: Total DLP = 711.00 mGy-cm CLINICAL HISTORY: [...] in OV> 02/22/252233 DD/ 31 TD/TT: 02/22/252231 Health And Wellness Director: [place] [address] CT Scan Report Signed Patient: Mikhail Woods MR#: [id number] : 1950 Acct:[id number] Age/Sex: 74 / M ADM Date: 02/22/25 Loc: [facility] 468-[address]: Rich Tate MD Ordering Physician: Francisco Blanton MD Date of Service: 02/22/25 Procedure(s): CT abd omen pelvis wo IV con Accession Number(s): [id number] cc: Thaddeus Oreilly MD; Francisco Blanton MD [...] in OV> 02/22/252233 DD/ 31 TD/TT: 02/22/252231 Health And Wellness Director: Complete Blood Count Auto Di ff Reviewed date:02/24/2025 01:37:52 PM Interpretation: Performing Lab:[facility], [address] [place] [phone] Notes/Report: White Blood Count 11.8 4.8-10.8 X10*3/uL [...] Panel Reviewed date:02/24/2025 01:37:52 PM Interpretation: Performing Lab:[facility], [address] [place] [phone] Notes/Report: Sodium 143 135-145 mmol/L Potassium 4.0 [...] Panel Reviewed date:02/24/2025 01:37:52 PM Interpretation: Performing Lab:[address] [address] Notes/Report: Sodium 143 135-145 mmol/L Potassium 3.4 [...] Phosphorus Reviewed date:02/24/2025 01:37:52 PM Interpretation: Performing Lab:[address] [address] Notes/Report: Phosphorus 2.2 2.7-4.5 mg/dL Magnesium Reviewed date:02/24/2025 01:37:52 PM Interpretation: Performing Lab:[address] [address] Notes/Report: Magnesium 1.2 1.6-2.6 mg/dL Critical [Magnesium] sent by a secure message and confirmed by (SHONA, 02/24/25 1154) Tech: ROSEMARY Basic Metabolic Panel Reviewed date:02/27/2025 05:39:52 AM Interpretation: Performing Lab:[facility], [address] [place] [phone] Notes/Report: Sodium 139 135-145 mmol/L Potassium 3.0 [...] Phosphorus Reviewed date:02/27/2025 05:39:52 AM Interpretation: Performing Lab:[facility], [address] [place] [phone] Notes/Report: Phosphorus 1.4 2.7-4.5 mg/dL Magnesium Reviewed date:02/27/2025 05:39:52 AM Interpretation: Performing Lab:[facility], [address] [place] [phone] Notes/Report: Magnesium 1.4 1.6-2.6 mg/dL Critical mags sent by a secure message and confirmed by katelin Smart 02/25/25 0956 Tech: [email or web address] Basic Metabolic Panel Reviewed date:02/27/2025 05:39:52 AM Interpretation: Performing Lab:[facility], [address] [place] [phone] Notes/Report: Sodium 139 135-145 mmol/L Test was [...] Phosphorus Reviewed date:02/27/2025 05:39:52 AM Interpretation: Performing Lab:[facility], [address] [place] [phone] Notes/Report: Phosphorus 2.4 2.7-4.5 mg/dL Magnesium Reviewed date:02/27/2025 05:39:52 AM Interpretation: Performing Lab:[facility], [address] [place] [phone] Notes/Report: Magnesium 1.7 1.6-2.6 mg/dL Basic Metabolic Panel Reviewed date:02/27/2025 05:39:52 AM Interpretation: Performing Lab:[facility], [address] [place] [phone] Notes/Report: Sodium 142 135-145 mmol/L Potassium 3.6 [...] Phosphorus Reviewed date:02/27/2025 05:39:52 AM Interpretation: Performing Lab:[facility], [address] [place] [phone] Notes/Report: Phosphorus 2.0 2.7-4.5 mg/dL Magnesium Reviewed date:02/27/2025 05:39:52 AM Interpretation: Performing Lab:[facility], [address] [place] [phone] Notes/Report: Magnesium 1.4 1.6-2.6 mg/dL Critical [MAGS] sent by a secure message and confirmed by ( [place] [id number] @0653) Tech:TIFF Hold Lav - Possible Hematolo gy Reviewed date:02/27/2025 03:19:41 PM Interpretation: Performing Lab:[facility], [address] [place] [phone] Notes/Report: Hold Lav - Possible Hematology SEE NOTE Specimen will be held untested for 8 hours. Call Hematology if testing is desired. Basic Metabolic Panel Reviewed date:02/27/2025 03:19:41 PM Interpretation: Performing Lab:[facility], [address] [place] [phone] Notes/Report: Sodium 142 135-145 mmol/L Potassium 4.1 [...] Phosphorus Reviewed date:02/27/2025 03:19:41 PM Interpretation: Performing Lab:[facility], [address] [place] [phone] Notes/Report: Phosphorus 2.0 2.7-4.5 mg/dL Magnesium Reviewed date:02/27/2025 03:19:41 PM Interpretation: Performing Lab:[address] [phone] Notes/Report: Magnesium 1.9 1.6-2.6 mg/dL Urine Culture Reviewed date:06/10/2025 03:18:52 PM Interpretation: Performing Lab:[address] [address] Notes/Report: O:ENTFAC Enterococcus faecalis Urine Culture Quant Urine Culture > 100,000 cfu/mL Ampicillin <=2 Levofloxacin 0.5 Nitrofurantoin <=16 Tetracycline >=16 Vancomycin 1 Complete Blood Count Auto Di ff Reviewed date:06/10/2025 03:18:52 PM Interpretation: Performing Lab:[facility], [address] [place] [phone] Notes/Report: White Blood Count 13.1 4.8-10.8 X10*3/uL [...] 0.000 0.0-0.012 X10*3/uL Comprehensive Met. Panel Reviewed date:06/10/2025 03:18:52 PM Interpretation: Performing Lab:[address] [address] Notes/Report: Sodium 143 135-145 mmol/L Potassium 4.6 3.3-5.1 mmol/L Chloride 109 96-108 mmol/L Carbon Dioxide 26 22-29 mmol/L Anion Gap 13 12-20 Blood Urea Nitrogen 32 9-16 mg/dL Creatinine 1.08 0.5-1.4 mg/dL Estimated Glomerular Filt Rate > 60 Chronic Kidney Disease: Estimated GFR < 60 mL/min/1.73m2 Severe Kidney Disease: Estimated GFR < 15 mL/min/1.73m2 Glucose Random 95 60-115 mg/dL Calcium 10.0 8.4-10.2 mg/dL Bilirubin Total 0.4 0.0-1.0 mg/dL Aspartate Amino Transferase 20 5-37 U/L Alanine Aminotransferase 17 0-40 U/L Total Protein 7.6 6.5-8.0 g/dL Albumin Level 4.1 3.5-5.0 g/dL Alkaline Phosphatase 86 39-117 U/L Lipid Panel Reviewed date:06/10/2025 03:18:52 PM Interpretation: Performing Lab:[address] [address] Notes/Report: Triglycerides 104 <150 mg/dL Desirable Triglyceride: less than 150 mg/dL Borderline High Triglyceride 150-199 mg/dL High Triglyceride: 200-499 mg/dL Very High Triglyceride: greater than or equal to 5OO mg/dL Cholesterol 190 <200 mg/dL Desirable Cholesterol: less than 200 mg/dL Borderline High Cholesterol: 200-239 mg/dL High Cholesterol: greater than 239 mg/dL LDL Cholesterol Calculated 130 <100 mg/dL Desirable LDL: less than 100 mg/dL Near Optimal/Above Optimal LDL: 110-129 mg/dL Borderline High LDL: 130-159 mg/dL High LDL: 160-189 mg/dL Very High LDL: greater than or equal to 190 mg/dL HDL Cholesterol 40 >40 mg/dL Desirable HDL: greater than 40 mg/dL Note: This HDL assay may give artificially low results in patients with liver disease. PSA Free and Total Reviewed date:06/10/2025 03:18:52 PM Interpretation: Performing Lab:[facility], [address] [place] [phone] Notes/Report: Prostate Specific Ag Total 5.0 < OR = 4.0 ng/mL Percent Free Prostate Spec Ag 6 >25 % (calc) PSA(ng/mL) Free PSA(%) Estimated(x) Probability of Cancer(as%) 0-2.5 (*) Approx. 1 2.6-4.0(1) 0-27(2) 24(3) 4.1-10(4) 0-10 56 11-15 28 16-20 20 21-25 16 >or =26 8 >10(+) N/A >50 References:(1)Evelyn jorgensen et al.:Urology 60: 469-474 (2001) (2)Wil et al.:J.Urol 168: 922-925 (2001) Free PSA(%) Sensitivity(%) Specificity(%) < or = 25 85 19 < or = 30 93 9 (3)Catalona et al.:LEROY 277: 2009-7375 (1996) (4)Catalona et al.:LEROY 279: 9345-3238 (1997) (x)These estimates vary with age, ethnicity, family history and ZACH results. (*)The diagnostic usefulness of % Free PSA has not been established in patients with total PSA below 2.6 ng/mL (+)In men with PSA above 10 ng/mL, prostate cancer risk is determined by total PSA alone. The Total PSA value from this assay system is standardized against the equimolar PSA standard. The test result will be approximately 20% higher when compared to the WHO-standardized Total PSA (Siemens assay). Comparison of serial PSA results should be interpreted with this fact in mind. PSA was performed using the Zulma Maxim Immunoassay method. Values obtained from different assay methods cannot be used interchangeably. PSA levels, regardless of value, should not be interpreted as absolute evidence of the presence or absence of disease. THIS TEST WAS PERFORMED AT: [facility] [address] [place] [phone] JOHN PAUL BELCHER MD Free Prostate Spec Ag 0.3 Reason For Referral Reason Evaluate and Treat Medication Management and Teaching Fpc Diagnosis 1 Need for assistance at home [...] Shanika stated it would still be considered residential. Would like referral to be refaxed with to [phone]. Referral was refaxed. Referral Priority Routine Medications Medication SIG (Take, Route, Frequency, Duration) Notes Start Date End Date Status Finasteride 5 MG 1 tablet Orally Once a day 2024 Active Tylenol 325 MG 1 tablet as needed Orally every 6 hrs As needed Active Alfuzosin HCl ER 10 MG 1 tablet Orally Once a day 05/01/2025 Active Albuterol Sulfate (2.5 MG/3ML) 0.083% INHALE 3 ML TWICE DAILY WITH NEBULIZER Inhalation Active Montelukast Sodium 10 MG TAKE 1 TABLET B Y MOUTH AT BEDTIME Diagnosis Unavailable Oral Active Roflumilast 500 MCG 1 tablet Orally Once a day Active Budesonide 0.5 MG/2ML INHALE 2 ML BY NEBULIZATION TWICE DAILY FOR 30 DAYS Inhalation Active DuoNeb 0.5-2.5 (3) MG/3ML 3 mL as needed Inhalation twice a day Active Omeprazole 20 MG TAKE 1 CAPSULE BY [facility] EVERY DAY 30 MINUTES BEFORE [...] Problem Status W/U Status Risk Notes Problem 3051810 Former smoker (Z87.891) Active confirmed He is highly motivated not to smoke. We discussed a plan to prevent relapse in times of stress and illness. Problem 773786189 Overweight (BMI 25.0-29.9) (E66.3) Active confirmed He is now overweight with a body mass index of 25.68. We discussed his weight loss strategy and I reinforced continued weight loss through diet restricted in fat calories and sodium. Problem Obese class I (finding) (031017439980 107) Obesity (BMI 30.0-34.9) (E66.9) Active confirmed His body mass index is 31 with 243 pounds. We have reviewed his weight loss strategy. We have discussed diet and nutrition. I recommended he lose weight at a rate of one half up of a pound to a diet restricted in fat calories and sodium combined with regular exercise. Problem 86924906 Skin lesion (L98.9) Active confirmed He will call me in 3 weeks. If the lesion does not resolve he will be seen by a polymer materials consultant. Problem 75321688 Simple chronic bronchitis (J41.0) Active confirmed Problem 04263569 Chronic obstructive pulmonary disease, unspecified COPD type (J44.9) Active confirmed He will continu e to see the renewable energy trader regularly. The 6 mm pulmonary nodule will be followed carefully. He is no longer smoking. He will exercise regularly. He will continue to use his nebulizer and his new inhaler. Problem Benign prostatic hypertrophy (654754578) Benign prostatic hypertrophy (N40.0) Active confirmed He recently became unable to sleep and has overflow incontinence with a massively distended bladder. He has been hospitalized. Problem 724486254 Gastroesophageal reflux disease without esophagitis (K21.9) Active confirmed His symptoms ar e well-controlled with current regimen. No change was necessary today. Problem 430033440 Urine retention (R33.9) Active confirmed He was acutely ill and was taken to the emergency room at [facility] across the street from my office he was evaluated and subsequently admitted to the hospital.He was discharged after 6 days and spent 2 months in rehabilitation and is now living at home alone with nursing support. He has an indwelling Mojica catheter in place. He will see urology next week for an outpatient voiding trial. Problem 431451353 History of appendectomy (Z90.49) Active confirmed This was done a t the age of 7. 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 Problem 757149969 Pulmonary nodule less than 6 mm determined by computed tomography of lung (R91.1) Active confirmed The 6 mm left lower lobe nodule is stable on a CT scan done in January of this year. He will have an annual CT scan. Vital Signs Heart Rate 96 /min 06/10/2025 Temperature 98.0 degrees Fahrenheit 06/10/2025 Blood pressure diastolic 64 mm Hg 06/10/2025 Height 74 in 06/10/2025 Blood pressure systolic 95 mm Hg 06/10/2025 Weight 198 lbs 06/10/2025 BMI 25.42 kg/m2 06/10/2025 Encounters Encounter Location Date Provider Diagnosis Thaddeus Oreilly III, MD [address] [place] [address] [place] [address] 08/13/2024 Thaddeus Oreilly Benign prostatic hypertrophy N40.0 ; Chronic obstructive pulmonary disease, unspecified COPD type J44.9 ; Former smoker Z87.891 ; Gastroesophageal reflux disease without esophagitis K21.9 and Overweight (BMI 25.0-29.9) E66.3 Thaddeus Oreilly III, MD [address] [place] [address] [place] [address] 11/05/2024 Thaddeus Oreilly History of appendect lyndsey Z90.49 ; Chronic obstructive pulmonary disease, unspecified COPD type J44.9 ; Former smoker Z87.891 ; Gastroesophageal reflux disease without esophagitis K21.9 ; Benign prostatic hypertrophy N40.0 and Overweight (BMI 25.0-29.9) E66.3 Thaddeus Oreilly III, MD [address] [place] [address] [place] [address] 02/22/2025 Thaddeus Oreilly Urine retention R33. 9 ; Chronic obstructive pulmonary disease, unspecified COPD type J44.9 ; Gastroesophageal reflux disease without esophagitis K21.9 ; Former smoker Z87.891 ; Overweight (BMI 25.0-29.9) E66.3 and Benign prostatic hypertrophy N40.0 Thaddeus Oreilly III, MD [address] [place] [address] [place] [address] 04/26/2025 Thaddeus Oreilly Chronic obstructive pulmonary disease, unspecified COPD type J44.9 ; Urine retention R33.9 ; Former smoker Z87.891 ; Overweight (BMI 25.0-29.9) E66.3 and Benign prostatic hypertrophy N40.0 Thaddeus Oreilly III, MD [address] [place] [address] [place] [address] 05/21/2025 Thaddeus Oreilly Benign prostatic hypertrophy N40.0 ; Urine retention R33.9 ; Overweight (BMI 25.0-29.9) E66.3 ; Former smoker Z87.891 ; Gastroesophageal reflux disease without esophagitis K21.9 ; Pulmonary nodule less than 6 mm determined by computed tomography of lung R91.1 and Chronic obstructive pulmonary disease, unspecified COPD type J44.9 Thaddeus Oreilly III, MD [address] [place] [address] [place] [address] 06/10/2025 Thaddeus Oreilly Chronic obstructive pulmonary disease, unspecified COPD type J44.9 ; Former smoker Z87.891 ; Gastroesophageal reflux disease without esophagitis K21.9 ; Benign prostatic hypertrophy N40.0 ; Overweight (BMI 25.0-29.9) E66.3 ; Pulmonary nodule less than 6 mm determined by computed tomography of lung R91.1 and Urine retention R33.9 Thaddeus Oreilly III, MD [address] [place] [address] [place] [address] 07/10/2025 Thaddeus Oreilly III, MD [address] [place] [address] [place] [address] 03/13/2025 Thaddeus Oreilly III, MD [address] [place] [address] [place] [address] 04/22/2025 Thaddeus Oreilly III, MD [address] [place] [address] [place] [address] 04/24/2025 Thaddeus Oreilly III, MD [address] [place] [address] [place] [address] 04/30/2025 Thaddeus Oreilly III, MD [address] [place] [address] [place] [address] 05/01/2025 Thaddeus Oreilly III, MD [address] [place] [address] [address] [place] [address] 06/07/2025 Thaddeus Oreilly III, MD [address] [place] [address] [place] [address] 06/12/2025 Thaddeus Oreilly III, MD [address] [place] [address] [address] [place] [address] 06/12/2025 Thaddeus Oreilly Assessments Encounter Date Diagnosis (ICD Code) Assessment Notes T reatment Notes Treatment Clinical Notes 08/13/2024 Chronic obstructive pulmonary disease, unspecified COPD type (ICD-10 - J44.9) He will continue to see the renewable energy trader regularly. The 6 mm pulmonary nodule will [...] J44.9) He will continue to see the renewable energy trader regularly. The 6 mm pulmonary nodule will be followed carefully. He will refrain from smoking. He will exercise regularly. He will continue to use his nebulizer and his new inhaler. 11/05/2024 History of appendectomy (ICD-10 - Z90.49) This was done at the age of 7. 02/22/2025 Urine retention (ICD-10 - R33.9) He was acutely ill and was taken to the emergency room at [facility] from my office he was evaluated and subsequently admitted to the hospital. 04/26/2025 Chronic obstructive pulmonary disease, unspecified COPD type (ICD-10 - J44.9) He will continue to see the renewable energy trader regularly. The 6 mm pulmonary nodule will be followed carefully. He is no longer smoking. He will exercise regularly. He will continue to use his nebulizer and his new inhaler. 04/26/2025 Urine retention (ICD-10 - R33.9) He was acutely ill and was taken to the emergency room at [facility] [place] my office he was evaluated and [...] was taken to the emergency room at [facility] across the street from my office he was evaluated and subsequently admitted to the hospital.He was discharged after 6 days and spent 2 months in rehabilitation and is now living at home alone with nursing support. He has an indwelling Mojica catheter in place. He will see urology next week for an outpatient voiding trial. 06/10/2025 Former smoker (ICD-1 0 - Z87.891) He is highly motivated not to smoke. We discussed a plan to prevent relapse in times of stress and illness. 06/10/2025 Chronic obstructive pulmonary disease, unspecified COPD type (ICD-10 - J44.9) He will continue to see the renewable energy trader regularly. The 6 mm pulmonary nodule will [...] J44.9) He will continue to see the renewable energy trader regularly. The 6 mm pulmonary nodule will [...] restricted in fat calories and sodium. 06/10/2025 Gastroesophageal reflux disease without esophagitis (ICD-10 - K21.9) His symptoms are well-controlled with current regimen. No change was necessary today. 08/13/2024 Gastroesophageal reflux disease without esophagitis (ICD-10 [...] in times of stress and illness. 06/10/2025 Benign prostatic hypertrophy (ICD-10 - N40.0) He recently became unable to sleep and has overflow incontinence with a massively distended bladder. He has been hospitalized. 08/13/2024 Overweight (BMI 25.0-29.9) (ICD-10 - E66.3) [...] regimen. No change was necessary today. 06/10/2025 Overweight (BMI 25.0-29.9) (ICD-10 - E66.3) He is now overweight with a body mass index of 25.68. We discussed his weight loss strategy and I reinforced continued weight loss through diet restricted in fat calories and sodium. 11/05/2024 Overweight (BMI 25.0-29.9) (ICD-10 - E66.3) [...] will have an annual CT scan. 06/10/2025 Pulmonary nodule les s than 6 mm determined by computed tomography of lung (ICD-10 - R91.1) The 6 mm left lower lobe nodule is stable on a CT scan done in January of this year. He will have an annual CT scan. 05/21/2025 Chronic obstructive pulmonary disease, unspecified COPD type (ICD-10 - J44.9) He will continue to see the renewable energy trader regularly. The 6 mm pulmonary nodule will be followed carefully. He is no longer smoking. He will exercise regularly. He will continue to use his nebulizer and his new inhaler. 06/10/2025 Urine retention (ICD-10 - R33.9) He was acutely ill and was taken to the emergency room at [facility] across the street from my office he was evaluated and subsequently admitted to the hospital.He was discharged after 6 days and spent 2 months in rehabilitation and is now living at home alone with nursing support. He has an indwelling Mojica catheter in place. He will see urology next week for an outpatient voiding trial. Plan Of Treatment Pending Test Test Name [...] Panel 05/21/2025 Next Appt Details Provider Name:Thaddeus Oreilly , 07/24/2025 03:15:00 PM, [address] [place] [address] [place], [address], Provider Name:Thaddeus Oreilly , 11/06/2025 03:00:00 PM, [address] [place] [address] DR, [address], [place], [phone], Insurance Providers Payer Name Payer Address Payer Phone Subscriber Number Group Number Insured Name Patient Relationship to Insured Coverage Start Date Coverage End Date MEDICARE NGS [address] [place] [address] [id number] [employer] Self - patient is the insured MEDICA[place] [address] [place] [id number] [employer] Self - patient is the insured Medical (General) History Medical History History ICD Code COPD Emphysema Diffusion defect 6 mm pulmonary nodule November 2021 Obesity Benign prostatic hypertrophy Glaucoma Former smoker GERD Surgical History Surgery Date(Month/Year) No history appendectomy age 7 Hospitalization History Reason Date(Month/Year) No history
--- OUTSIDE RECORDS SUMMARY | 2025-07-10 19:40 | XMS_ITS | Encounter Summary ---
Author Organization [facility] Address [address] [place] [address] Care Team Providers Care Director Vaccine Name Role Phone Tyler Castillo MD Primary Care Provider [phone] Encounter Details Date Type Department Care Team (Late st Contact Info) Description 03/05/2025 Lab Requisition [facility] - Main Lab 299 [facility] [place] [address] Scott Starr MD [address] [place], [place] [phone] Anemia, unspecified Social History Tobacco Use Types [...] CHEMISTRY METHOD 03/05/2025 11:44 AM EDT [facility] Blood Venous blood specimen / Unknown Venipuncture / Unknown 03/05/2025 7:35 AM EDT 03/05/2025 9:55 AM EDT us Scott Starr MD LAB BLOOD ORDERABLES Final Result [facility] [address] [place] [address], [place] [phone] * Magnesium (03/05/2025 7:35 AM EDT) Pathologist [facility] Magnesium 2.3 1.9 - 2.6 mg/dL LAB CHEMISTRY METHOD 03/05/2025 11:44 AM EDT [facility] Blood Venous blood specimen / Unknown Venipuncture / Unknown 03/05/2025 7:35 AM EDT 03/05/2025 9:55 AM EDT us Scott Starr MD LAB BLOOD ORDERABLES Final Result [facility] [address] [place] [address], [place] [phone] * (ABNORMAL) Comprehensive metabolic panel (03/05/2025 7:35 AM EDT) Sodium 139 133 - 145 mmol/L LAB CHEMISTRY METHOD 03/05/2025 12:05 PM EDT [facility] Potassium 4.1 3.5 - 5.5 mmol/L LAB CHEMISTRY METHOD 03/05/2025 12:05 PM EDT [facility] Chloride 105 96 - 110 mmol/L LAB CHEMISTRY METHOD 03/05/2025 12:05 PM EDT [facility] CO2 24 21 - 32 mmol/L LAB CHEMISTRY METHOD 03/05/2025 12:05 PM EDT [facility] Anion Gap 10 3 - 11 LAB CHEMISTRY METHOD 03/05/2025 12:05 PM [facility] Glucose 77 70 - 100 mg/dL LAB CHEMISTRY METHOD 03/05/2025 12:05 PM [facility] BUN 21 5 - 25 mg/dL LAB CHEMISTRY METHOD 03/05/2025 12:05 PM [facility] Creatinine 1.04 0.70 - 1.30 mg/dL LAB CHEMISTRY METHOD 03/05/2025 12:05 PM [facility] eGFR 74 >=60 mL/min/1. 73m2 LAB CHEMISTRY METHOD 03/05/2025 12:05 PM [facility] Comment:Calculation based on the Chronic Kidney Disease Epidemiology Collaboration (CKD-EPI) equation refit without adjustment for race. BUN/Creatinine Ratio 20.2 LAB CHEMISTRY METHOD 03/05/2025 12:05 PM [facility] Calcium 9.0 8.5 - 10.5 mg/dL LAB CHEMISTRY METHOD 03/05/2025 12:05 PM [facility] AST (SGOT) 15 10 - 42 unit/L LAB CHEMISTRY METHOD 03/05/2025 12:05 PM [facility] ALT (SGPT) 27 10 - 60 unit/L LAB CHEMISTRY METHOD 03/05/2025 12:05 PM [facility] Alkaline Phosphatase 89 42 - 121 unit/L LAB CHEMISTRY METHOD 03/05/2025 12:05 PM [facility] Total Protein 6.6 6.0 - 8.0 g/dL LAB CHEMISTRY METHOD 03/05/2025 12:05 PM [facility] Albumin 3.1(L) 3.2 - 5.0 g/dL LAB CHEMISTRY METHOD 03/05/2025 12:05 PM [facility] Total Bilirubin 0.4 0.0 - 1.4 mg/dL LAB CHEMISTRY METHOD 03/05/2025 12:05 PM EDT [facility] Blood Venous blood specimen / Unknown Venipuncture / Unknown 03/05/2025 7:35 AM EDT 03/05/2025 9:55 AM EDT Scott Starr MD LAB BLOOD ORDERABLES Final Result [facility] [address] [place] [address], * Complete blood count (03/05/2025 7:35 AM EDT) WBC 8.7 4.8 - 10.8 K/mcL LAB HEMETOLOGY METHOD 03/05/2025 11:06 AM [facility] RBC 4.70 4.50 - 5.50 M/mcL LAB HEMETOLOGY METHOD 03/05/2025 11:06 AM [facility] Hemoglobin 14.0 13.5 - 17.5 g/dL LAB HEMETOLOGY METHOD 03/05/2025 11:06 AM [facility] Hematocrit 42.8 42.0 - 54.0 % LAB HEMETOLOGY METHOD 03/05/2025 11:06 AM [facility] MCV 90.7 79.0 - 98.0 FL LAB HEMETOLOGY METHOD 03/05/2025 11:06 AM [facility] MCH 29.7 27.0 - 32.0 pcg LAB HEMETOLOGY METHOD 03/05/2025 11:06 AM [facility] MCHC 32.7 32.0 - 37.0 g/dL LAB HEMETOLOGY METHOD 03/05/2025 11:06 AM [facility] RDW 12.9 11.0 - 15.0 % LAB HEMETOLOGY METHOD 03/05/2025 11:06 AM [facility] Platelets 383 130 - 400 K/mcL LAB HEMETOLOGY METHOD 03/05/2025 11:06 AM EDT [facility] MPV 9.0 7.0 - 11.0 FL LAB HEMETOLOGY METHOD 03/05/2025 11:06 AM EDT [facility] NRBC 0.0 <1.0 % LAB HEMETOLOGY METHOD 03/05/2025 11:06 AM EDT [facility] NRBC Absolute 0.00 <0.10 K/mcL LAB HEMETOLOGY METHOD 03/05/2025 11:06 AM EDT [facility] Blood Venous blood specimen / Unknown Venipuncture / Unknown 03/05/2025 7:35 AM EDT 03/05/2025 9:55 AM EDT Scott Starr MD LAB BLOOD ORDERABLES Final Result [facility] [address] [place] [address], documented in this encounter Visit Diagnoses Diagnosis Anemia, unspecified documented in this encounter Additional Health Concerns Infection Onset Date Last Indicated Resolved Time C. difficile Rule-Out 04/04/2025 04/04/20252024 12:46 PM EDT documented as of this encounter Care Teams Director Vaccine Relationship Specialty Start Date End Date Tyler Castillo MD [address] [place] [address] PCP - General Internal Medicine 10/20/15 documented as of this encounter
--- OUTSIDE RECORDS SUMMARY | 2025-07-10 19:40 | XMS_ITS | Encounter Summary ---
Author Organization [facility] Address [address] [place] [address] Care Team Providers Care Supervisor Customer Complaint Service Name Role Phone Tyler Castillo MD Primary Care Provider [phone] Encounter Details Date Type Department Care Team (Late st Contact Info) Description 04/15/2025 Lab Requisition [facility] - Main Lab 299 [facility] [place] [address] Scott Starr MD [address] [place], [place] [phone] Benign prostatic hyperplasia without lower urinary tract [...] LAB CHEMISTRY METHOD 04/16/2025 12:49 PM EDT [facility] Potassium 4.4 3.5 - 5.5 [...] LAB CHEMISTRY METHOD 04/16/2025 12:49 PM EDT [facility] Albumin 2.5(L) 3.2 - 5.0 g/dL LAB CHEMISTRY METHOD 04/16/2025 12:49 PM EDT [facility] Total Bilirubin 0.3 0.0 - 1.4 mg/dL LAB CHEMISTRY METHOD 04/16/2025 12:49 PM EDT [facility] Blood Venous blood specimen / Unknown Venipuncture / Unknown 04/16/2025 7:09 AM EDT 04/16/2025 8:53 AM EDT Scott Starr MD LAB BLOOD ORDERABLES Final Result [facility] [address] [place] [address], * (ABNORMAL) Complete blood count (04/16/2025 7:09 AM EDT) WBC 13.3(H) 4.8 - 10.8 K/mcL LAB HEMETOLOGY METHOD 04/16/2025 9:35 AM [facility] RBC 4.10(L) 4.50 - 5.50 M/mcL LAB HEMETOLOGY METHOD 04/16/2025 9:35 AM EDT [facility] Hemoglobin 12.0(L) 13.5 - 17.5 g/dL LAB HEMETOLOGY METHOD 04/16/2025 9:35 AM T [facility] Hematocrit 38.2(L) 42.0 - 54.0 % LAB HEMETOLOGY METHOD 04/16/2025 9:35 AM [facility] MCV 92.5 79.0 - 98.0 FL LAB HEMETOLOGY METHOD 04/16/2025 9:35 AM EDT [facility] MCH 29.1 27.0 - 32.0 pcg LAB HEMETOLOGY METHOD 04/16/2025 9:35 AM EDT [facility] MCHC 31.4(L) 32.0 - 37.0 g/dL LAB HEMETOLOGY METHOD 04/16/2025 9:35 AM EDT [facility] RDW 14.0 11.0 - 15.0 % LAB HEMETOLOGY METHOD 04/16/2025 9:35 AM EDT [facility] Platelets 488(H) 130 - 400 K/mcL LAB HEMETOLOGY METHOD 04/16/2025 9:35 AM EDT [facility] MPV 8.7 7.0 - 11.0 FL LAB HEMETOLOGY METHOD 04/16/2025 9:35 AM EDT [facility] NRBC 0.0 <1.0 % LAB HEMETOLOGY METHOD 04/16/2025 9:35 AM EDT [facility] NRBC Absolute 0.00 <0.10 K/mcL LAB HEMETOLOGY METHOD 04/16/2025 9:35 AM EDT [facility] Blood Venous blood specimen / Unknown Venipuncture / Unknown 04/16/2025 7:09 AM EDT 04/16/2025 8:53 AM EDT Scott Starr MD LAB BLOOD ORDERABLES Final Result [facility] [address] [place] [address], documented in this encounter Visit Diagnoses Diagnosis Benign prostatic hyperplasia without lower urinary tract symptoms Urinary tract infection, site not specified documented in this encounter Care Teams Supervisor Customer Complaint Service Relationship Specialty Start Date End Date Tyler Castillo MD [address] [place] [id number] PCP - General Internal Medicine 10/20/15 documented as of this encounter
--- OUTSIDE RECORDS SUMMARY | 2025-07-10 19:40 | XMS_ITS | Encounter Summary ---
Author Organization [facility] Address [address] [place] [address] Care Team Providers Care Die Storage Clerk Name Role Phone Tyler Castillo MD Primary Care Provider [phone] Encounter Details Date Type Department Care Team (Late st Contact Info) Description 03/11/2025 Lab Requisition [facility] - Main Lab 299 [facility] [place] [address] Scott Starr MD [address] [place], [place] [phone] Anemia, unspecified Social History Tobacco Use Types [...] LAB CHEMISTRY METHOD 03/12/2025 11:29 AM EDT [facility] Blood Venous blood specimen / Unknown Venipuncture / Unknown 03/12/2025 7:13 AM EDT 03/12/2025 10:31 AM EDT us Scott Starr MD LAB BLOOD ORDERABLES Final Result Performing Organization Address [facility]/ZIP Co de Phone Number [facility] [address] [place] [address], [place] [phone] * Magnesium (03/12/2025 7:13 AM EDT) Pathologist [facility] Magnesium 2.3 1.9 - 2.6 mg/dL LAB CHEMISTRY METHOD 03/12/2025 11:29 AM EDT [facility] Comment:Hemolysis present Blood Venous blood specimen / Unknown Venipuncture / Unknown 03/12/2025 7:13 AM EDT 03/12/2025 10:31 AM EDT us Scott Starr MD LAB BLOOD ORDERABLES Final Result Performing Organization Address [facility] de Phone Number [facility] [address] [place] [address], [place] [phone] * Basic metabolic panel (03/12/2025 7:13 AM EDT) Sodium 136 133 - 145 mmol/L LAB CHEMISTRY METHOD 03/12/2025 11:29 AM EDT [facility] Potassium 4.7 3.5 - 5.5 mmol/L LAB CHEMISTRY METHOD 03/12/2025 11:29 AM EDT [facility] Comment:Hemolysis present Chloride 104 96 - 110 mmol/L LAB CHEMISTRY METHOD 03/12/2025 11:29 AM EDT [facility] CO2 26 21 - 32 mmol/L LAB CHEMISTRY METHOD 03/12/2025 11:29 AM EDT [facility] Anion Gap 6 3 - 11 LAB CHEMISTRY METHOD 03/12/2025 11:29 AM [facility] Glucose 72 70 - 100 mg/dL LAB CHEMISTRY METHOD 03/12/2025 11:29 AM [facility] BUN 19 5 - 25 mg/dL LAB CHEMISTRY METHOD 03/12/2025 11:29 AM [facility] Creatinine 1.02 0.70 - 1.30 mg/dL LAB CHEMISTRY METHOD 03/12/2025 11:29 AM [facility] eGFR 76 >=60 mL/min/1. 73m2 LAB CHEMISTRY METHOD 03/12/2025 11:29 AM [facility] Comment:Calculation based on the Chronic Kidney Disease Epidemiology Collaboration (CKD-EPI) equation refit without adjustment for race. BUN/Creatinine Ratio 18.6 LAB CHEMISTRY METHOD 03/12/2025 11:29 AM [facility] Calcium 8.9 8.5 - 10.5 mg/dL LAB CHEMISTRY METHOD 03/12/2025 11:29 AM [facility] Blood Venous blood specimen / Unknown Venipuncture / Unknown 03/12/2025 7:13 AM EDT 03/12/2025 10:31 AM EDT Scott Starr MD LAB BLOOD ORDERABLES Final Result [facility] [address] [place] [address], * Complete blood count (03/12/2025 7:13 AM EDT) WBC 9.0 4.8 - 10.8 K/mcL LAB HEMETOLOGY METHOD 03/12/2025 11:08 AM EDT [facility] RBC 4.70 4.50 - 5.50 M/mcL LAB HEMETOLOGY METHOD 03/12/2025 11:08 AM [facility] Hemoglobin 14.1 13.5 - 17.5 g/dL LAB HEMETOLOGY METHOD 03/12/2025 11:08 AM [facility] Hematocrit 43.1 42.0 - 54.0 % LAB HEMETOLOGY METHOD 03/12/2025 11:08 AM [facility] MCV 92.3 79.0 - 98.0 FL LAB HEMETOLOGY METHOD 03/12/2025 11:08 AM [facility] MCH 30.2 27.0 - 32.0 pcg LAB HEMETOLOGY METHOD 03/12/2025 11:08 AM [facility] MCHC 32.7 32.0 - 37.0 g/dL LAB HEMETOLOGY METHOD 03/12/2025 11:08 AM [facility] RDW 13.4 11.0 - 15.0 % LAB HEMETOLOGY METHOD 03/12/2025 11:08 AM [facility] Platelets 339 130 - 400 K/mcL LAB HEMETOLOGY METHOD 03/12/2025 11:08 AM [facility] MPV 9.2 7.0 - 11.0 FL LAB HEMETOLOGY METHOD 03/12/2025 11:08 AM [facility] NRBC 0.0 <1.0 % LAB HEMETOLOGY METHOD 03/12/2025 11:08 AM [facility] NRBC Absolute 0.00 <0.10 K/mcL LAB HEMETOLOGY METHOD 03/12/2025 11:08 AM [facility] Blood Venous blood specimen / Unknown Venipuncture / Unknown 03/12/2025 7:13 AM EDT 03/12/2025 10:31 AM EDT Scott Starr MD LAB BLOOD ORDERABLES Final Result [facility] [address] [place] [address], documented in this encounter Visit Diagnoses Diagnosis Anemia, unspecified documented in this encounter Additional Health Concerns Infection Onset Date Last Indicated Resolved Time C. difficile Rule-Out 04/04/2025 04/04/20252024 12:46 PM EDT documented as of this encounter Care Teams Die Storage Clerk Relationship Specialty Start Date End Date Tyler Castillo MD [address] [place] [address] PCP - General Internal Medicine 10/20/15 documented as of this encounter
--- OUTSIDE RECORDS SUMMARY | 2025-07-10 19:40 | XMS_ITS | Encounter Summary ---
Author Organization [facility] Address [address] [place] [address] Care Team Providers Care Wood Drill Operator Name Role Phone Tyler Castillo MD Primary Care Provider [phone] Encounter Details Date Type Department Care Team (Late st Contact Info) Description 04/23/2025 Lab Requisition [facility] - Main Lab 299 [facility] [employer] [place] [address] Scott Starr MD [address] [place], [place] [phone] Anemia, unspecified; Acute kidney failure, unspecified (CMS/HCC [...] mmol/L LAB CHEMISTRY METHOD 04/23/2025 10:03 AM [facility] Potassium 4.4 3.5 - 5.5 mmol/L LAB CHEMISTRY METHOD 04/23/2025 10:03 AM [facility] Chloride 107 96 - 110 mmol/L LAB CHEMISTRY METHOD 04/23/2025 10:03 AM [facility] CO2 28 21 - 32 mmol/L LAB CHEMISTRY METHOD 04/23/2025 10:03 AM [facility] Anion Gap 4 3 - 11 LAB CHEMISTRY METHOD 04/23/2025 10:03 AM [facility] Glucose 74 70 - 100 mg/dL LAB CHEMISTRY METHOD 04/23/2025 10:03 AM [facility] BUN 18 5 - 25 mg/dL LAB CHEMISTRY METHOD 04/23/2025 10:03 AM [facility] Creatinine 1.09 0.70 - 1.30 mg/dL LAB CHEMISTRY METHOD 04/23/2025 10:03 AM [facility] eGFR 70 >=60 mL/min/1. 73m2 LAB CHEMISTRY METHOD 04/23/2025 10:03 AM [facility] Comment:Calculation based on the Chronic Kidney Disease Epidemiology Collaboration (CKD-EPI) equation refit without adjustment for race. BUN/Creatinine Ratio 16.5 LAB CHEMISTRY METHOD 04/23/2025 10:03 AM [facility] Calcium 9.1 8.5 - 10.5 mg/dL LAB CHEMISTRY METHOD 04/23/2025 10:03 AM [facility] Blood Venous blood specimen / Unknown Venipuncture / Unknown 04/23/2025 7:12 AM EDT 04/23/2025 9:11 AM EDT us Scott Starr MD LAB BLOOD ORDERABLES Final Result [facility] [address] [place] [address], [place] [phone] * (ABNORMAL) Complete blood count (04/23/2025 7:12 AM EDT) [facility] WBC 8.9 4.8 - 10.8 K/mcL LAB HEMETOLOGY METHOD [facility]/23[facility]25 9[facility] RBC 4.10(L) 4.50 - 5.50 M/mcL LAB HEMETOLOGY METHOD 04/23/2025 9:48 AM EDT [facility] Hemoglobin 12.0(L) 13.5 - 17.5 g/dL LAB HEMETOLOGY METHOD 04/23/2025 9:48 AM T [facility] Hematocrit 37.6(L) 42.0 - 54.0 % LAB HEMETOLOGY METHOD 04/23/2025 9:48 AM [facility] MCV 91.0 79.0 - 98.0 FL LAB HEMETOLOGY METHOD 04/23/2025 9:48 [facility] MCH 29.1 27.0 - 32.0 pcg LAB HEMETOLOGY METHOD 04/23/2025 9:48 AM [facility] MCHC 31.9(L) 32.0 - 37.0 g/dL LAB HEMETOLOGY METHOD 04/23/2025 9:48 AM [facility] RDW 14.4 11.0 - 15.0 % LAB HEMETOLOGY METHOD 04/23/2025 9:48 [facility] Platelets 437(H) 130 - 400 K/mcL LAB HEMETOLOGY METHOD 04/23/2025 9:48 AM EDT [facility] MPV 8.8 7.0 - 11.0 FL LAB HEMETOLOGY METHOD 04/23/2025 9:48 [facility] NRBC 0.0 <1.0 % LAB HEMETOLOGY METHOD 04/23/2025 9:48 AM EDT [facility] NRBC Absolute 0.00 <0.10 K/mcL LAB HEMETOLOGY METHOD 04/23/2025 9:48 AM EDT [facility] Blood Venous blood specimen / Unknown Venipuncture / Unknown 04/23/2025 7:12 AM EDT 04/23/2025 9:11 AM EDT us Scott Starr MD LAB BLOOD ORDERABLES Final Result [facility] [address] [place] [address], documented in this encounter Visit Diagnoses Diagnosis Anemia, unspecified Acute kidney failure, unspecified (CMS/HCC V24) Acute kidney failure, unspecified documented in this encounter Care Teams Wood Drill Operator Relationship Specialty Start Date End Date Tyler Castillo MD [address] [place] [address] PCP - General Internal Medicine 10/20/15 documented as of this encounter
--- NOTE | 2025-07-10 19:58 | PC.NURSE ---
md angeles at bedside, ennis removed as ennis was not draining. MD Angeles attempted x2 with no success. awaiting urology, sophie care completed
[2025-07-10] MEDS: Lidocaine HCl 2 % Urojet 10 ML JEL.PF.APP TOPICAL ×2 (20:40)
--- NOTE | 2025-07-10 21:08 | PC.NURSE ---
MD Angeles placed 24F coude, draining dark yellow urine with sediment
[2025-07-10 21:20] LABS: Anion Gap 18 (12-20); Blood Urea Nitrogen 124 mg/dL (9-16); Calcium 9.4 mg/dL (8.4-10.2); Carbon Dioxide 17 mmol/L (22-29); Chloride 109 mmol/L (96-108); Creatinine Clr Calc Pharmacy 10.7; Estimated Glomerular Filt Rate 8; Potassium 4.8 mmol/L (3.3-5.1); Sodium 139 mmol/L (135-145)
--- NOTE | 2025-07-10 21:51 | PM.IMHP ---
History of Present Illness Date of Service: 07/10/25 Attending physician on admission: Anupam Tate Chief Complaint: Weakness, ennis malfunctioning Patient is a 74-year-old male with past medical history significant for chronic Ennis secondary to BPH, COPD, history of smoking and GERD, who presented to the ED due to weakness, lower abdominal fullness and no urine output x4 days in Ennis catheter. The patient reports that he damaged his Ennis catheter 4 days, and it has not been draining since. He denies any fever, chills, nausea or vomiting. No upper respiratory symptoms including shortness of breath, cough or congestion. He has had some weight loss and generalized malaise. Review of Systems Constitutional: Constitutional: Denies chills, Reports fatigue, Denies fever(s) and Denies headache(s) Eyes: Eyes: Denies change in vision ENT: Denies headache(s), Denies nasal congestion and Denies sore throat Cardiovascular: Cardiovascular: Denies chest pain, Denies rapid heart rate, Denies lightheadedness and Denies dyspnea Respiratory: Respiratory: Denies chest congestion, Denies cough, Denies dyspnea and Denies wheezing Gastrointestinal: Gastrointestinal: Denies nausea and Denies vomiting Genitourinary: Genitourinary: Reports as per HPI Musculoskeletal: Musculoskeletal: Denies myalgias Integumentary/Breasts: Skin/Breast: Denies rash Neurologic: Denies confusion and Denies headache(s) Psychiatric: Psychiatric: Denies confusion Endocrine: Endocrine: Reports fatigue Hematologic/Lymphatic: Hematologic/Lymphatic: Denies easy bleeding Allergic/Immunologic: Allergic/Immunologic: Denies wheezing [facility] Medical History BPH (benign prostatic hyperplasia) Chronic indwelling Ennis catheter Elevated PSA measurement Pulmonary nodule Personal history of nicotine dependence Dyspnea COPD (chronic obstructive pulmonary disease) Surgical History Hx of appendectomy Social History Household Members: None Housing: House Patient Tobacco Use Status: Former Tobacco user Tobacco use type: Cigarette and Cigar Years Smoked: Since 12 years old Smoked in Last 30 Days: No Second Hand Smoke Exposure: No Use of substances other than those prescribed or required for medical reasons: No Advance Directives: No Advance Directives Information Provided: Yes Nutrition Risks: No Nutritional Risk service: No Meds Allergies Allergy/AdvReac Type Severity Reaction Status Date / Time No Known Allergies Allergy Verified 07/10/25 17:37 Active Medications: Current Medications Acetaminophen (Acetaminophen 325 Mg Tablet) 975 mg PO Q6H PRN PRN Reason: Pain, Mild 1-3,fever,headache Calcium Carbonate (Calcium Carbonate 750 Mg Tab.Chew) 750 mg PO Q4H PRN PRN Reason: Heartburn Heparin Sodium (Porcine) (Heparin Sodium,Porcine 5,000 Unit/Ml Vial) 5,000 unit SUBCUT Q12H [facility] Ceftriaxone Sodium 2 gm/ (Sodium Chloride) 50 mls @ 100 mls/hr IV Q24H [facility] Magnesium Hydroxide (Milk Of Magnesia 30 Ml Oral.Susp) 30 ml PO DAILY PRN PRN Reason: Constipation Melatonin (Melatonin 3 Mg Tablet) 6 mg PO BEDTIME PRN PRN Reason: Insomnia Ondansetron HCl (Ondansetron Hcl 4 Mg/2 Ml Vial) 4 mg IVPUSH Q8H PRN PRN Reason: Nausea and Vomiting Oxycodone HCl (Oxycodone Hcl Immed Release 5 Mg Tablet) 5 mg PO Q6H PRN PRN Reason: Pain, Severe (Pain Scale 7-10) Sodium Chloride (0.9 % Sodium Chloride Flush 3 Ml Syringe) 3 ml IVFLUSH QSHIFT [facility] Tramadol HCl (Tramadol Hcl 50 Mg Tablet) 50 mg PO Q6H PRN PRN Reason: Pain, Moderate(Pain Scale 4-6) Home Medications ?Medication ?Instructions ?Recorded ?Confirmed ?Last Taken ?Type omeprazole 20 mg capsule,delayed 20 mg PO DAILY@0630 07/14/20 07/10/25 07/10/25 History release nebulizers 12/13/22 05/23/25 Unknown History acetaminophen 325 mg tablet 650 mg PO Q6H PRN Pain 02/22/25 07/10/25 Unknown History alfuzosin 10 mg tablet,extended 10 mg PO DAILY 07/10/25 07/10/25 07/10/25 History release 24 hr fluticasone furoate 200 1 ea inhalation DAILY 07/10/25 07/10/25 07/10/25 History mcg-vilanterol 25 mcg/dose inhalation powder (Breo Ellipta) Physical Exam Vital Signs and Narrative: Vital Signs: Last Vital Signs Temp 98.1 F 07/10/25 20:49 Pulse 106 H 07/10/25 21:41 Resp 28 H 07/10/25 21:41 BP 126/58 L 07/10/25 21:41 Pulse Ox 95 07/10/25 21:14 O2 Del Method Room Air 07/10/25 21:41 BMI result Body Mass Index 25.4 General: AOx3, no acute distress Resp: CTA bilaterally CVS: S1, S2, RRR GI/: +BS, NT, no distention. ennis draining Skin: Warm, dry Neuro: Cranial nerves II-XII grossly intact bilaterally. Motor grossly intact bilaterally Extremities: No pitting edema Psych: Appropriate affect Const: General: No confusion Orientation/consciousness: No confusion Neuro: General: No confusion Results Labs 07/11/25 03:56 07/11/25 03:56 Labs: Laboratory Results - last 24 hr 07/10/25 07/10/25 07/10/25 17:57 18:10 20:57 MCV 89.0 MCH 29.8 MCHC 33.5 RDW 15.5 Plt Count 232 D MPV 9.1 L Immature Gran % (Auto) 0.4 Neut % (Auto) 89.7 H Lymph % (Auto) 1.3 L [place] % (Auto) 8.0 Eos % (Auto) 0.4 Baso % (Auto) 0.2 Lymph # (Auto) 0.3 L [place] # (Auto) 1.7 H Eos # (Auto) 0.1 Baso # (Auto) 0.0 Abs Immat Gran (auto) 0.08 H Absolute Neuts (auto) 19.5 H Absolute Nucleated RBC 0.000 Nucleated RBC % (auto) 0.0 PT 15.4 H INR 1.3 H APTT 26.0 L Anion Gap 19 18 Estim Creat Clear Calc 9.3 10.7 Estimated GFR 7 8 Random Glucose 99 80 Lactic Acid 1.9 Calcium 10.3 H 9.4 D Total Bilirubin 0.4 Urine Color Yellow Urine Appearance Turbid Urine pH 7.0 Ur Specific [place] 1.015 Urine Protein 300 (3+) H Urine Glucose (UA) Negative Urine Ketones Negative Urine Blood Large (3+) H Urine Nitrite Negative Ur Leukocyte Esterase Large (3+) H Urine RBC >20 H Urine WBC >50 H Ur Squamous Epith Cells 3-5 Urine Bacteria 4+ Hyaline Casts 11-20 Assessment and Plan (1) Sepsis: Status: Acute (2) Urinary tract infection: Status: Acute (3) Acute urinary retention: Status: Acute (4) Acute kidney injury: Status: Acute (5) Acute hyperkalemia: Status: Acute (6) Personal history of nicotine dependence: Status: Acute Plan Patient is a 74-year-old male with past medical history significant for chronic Ennis secondary to BPH, COPD, history of smoking and GERD, who presented to the ED due to weakness, lower abdominal fullness and no urine output x4 days in Ennis catheter. Ennis catheter was malfunctioning, once replaced bladder drained greater than 700 cc. Sepsis secondary to UTI due to acute urinary retention from malfunctioning Ennis catheter - Ennis replaced, now draining - ceftriaxone pending culture - monitor CBC and BMP ANGELA, likely postrenal secondary to malfunctioning Ennis catheter - cr 7.79 --> 6.79 - nephrology consult - monitor BMP - bilateral renal US acute hyperkalemia - monitor BMP - tele Moderate COPD, no acute exacerbation - continue home medications GERD - continue home medications Med rec pending Full code VTE prophylaxis: Heparin Patient with sepsis secondary to UTI from malfunctioning Ennis catheter complicated by ANGELA and acute hyperkalemia, requiring admission for at least 2 midnight stay for IV antibiotics and monitoring. Quality Stroke Does the patient have a stroke diagnosis?: No VTE Prior VTE?: No VTE Risk Level:: Medical - moderate - high VTE Device Contraindication: Treatment Not Indicated VTE Drug Contraindication: N/A - Med Ordered
[2025-07-10 21:52] LABS: VBG HCO3 14 mmol/L (22-26); VBG O2 % Saturation 93.0 %
--- NOTE | 2025-07-10 21:55 | PHA.MEDREC ---
Pharmacy Consult ? Medication Reconciliation Pharmacy has completed the medication reconciliation. Patient and family are poor historians. Patient states he has a visiting nurse, however he doesn't have any contact information. Family at bedside thinks it's through [facility]. utilized claims to confirm med list. will have morning med rec team follow up with list from [facility] [phone].
[2025-07-10 21:56] LABS: Venous Blood Gas Refer to POC result
--- NOTE | 2025-07-11 | ECG_ITS ---
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 Rate : 85 BPM Atrial Rate : 85 BPM P-R Int : 156 ms QRS Dur : 94 ms QT Int : 364 ms P-R-T Axes : 72 -40 57 degrees QTcB Int : 433 ms Sinus rhythm with occasional Premature ventricular complexes Left axis deviation Abnormal ECG No previous ECGs available Referred By: [facility] Electronically Signed By: Walter Cortez
[2025-07-11 00:08] VITALS: BP 121/77; PULSE 98; RESP 20; TEMP 37.1; O2SAT 95
[2025-07-11 01:46] LABS: Anion Gap 18 (12-20); Blood Urea Nitrogen 121 mg/dL (9-16); Calcium 9.0 mg/dL (8.4-10.2); Carbon Dioxide 15 mmol/L (22-29); Chloride 108 mmol/L (96-108); Creatinine Clr Calc Pharmacy 11.1; Estimated Glomerular Filt Rate 8; Potassium 4.4 mmol/L (3.3-5.1); Sodium 137 mmol/L (135-145)
[2025-07-11 03:47] VITALS: BP 118/62; PULSE 91; RESP 20; TEMP 36.4; O2SAT 93
[2025-07-11 04:12] LABS: Hematocrit 34.6 % (42.0-52.0); Hemoglobin 11.5 g/dl (14.0-18.0); Imm Gran Abs Auto 0.07 X10*3/uL (0.00-0.03); Imm Gran Pct Auto 0.4 % (0.0-0.4); Lymphocytes Absolute Auto 0.8 X10*3/uL (1.2-4.9); MANUAL DIFF FLAG SCAN; Mean Corpuscular HGB Conc 33.2 g/dl (31.0-36.0); Mean Corpuscular Hemoglobin 29.9 pg (27.0-33.0); Mean Corpuscular Volume 89.9 fL (80.0-98.0); NRBC Abs Auto 0.000 X10*3/uL (0.0-0.012); NRBC Pct Auto 0.0 /100WBC (0.0-0.2); Platelet Count 213 X10*3/uL (160-400); Red Blood Count 3.85 X10*6/uL (4.60-5.80); SCAN SMEAR FLAG 1; White Blood Count 17.5 X10*3/uL (4.8-10.8)
[2025-07-11 04:32] LABS: Anion Gap 17 (12-20); Blood Urea Nitrogen 120 mg/dL (9-16); Calcium 9.3 mg/dL (8.4-10.2); Carbon Dioxide 16 mmol/L (22-29); Chloride 108 mmol/L (96-108); Creatinine Clr Calc Pharmacy 11.1; Estimated Glomerular Filt Rate 8; Magnesium 2.3 mg/dL (1.6-2.6); Potassium 4.3 mmol/L (3.3-5.1); Sodium 137 mmol/L (135-145)
[2025-07-11 05:33] LABS: NT Pro B Type Natriuretic Pept 5260.4 pg/mL (<300)
--- NOTE | 2025-07-11 07:09 | HO.NURTONUR ---
Addendum entered by Shea Holman RN 07/11/25 09:08: Noted changes on cardiac monitoring this AM. Attending made aware via [employer] and orders EKG. EKG completed and sent to attending via [employer] for review. Awaiting reply. Original Note: Care of Pt assumed at change of shift (0700.) 74 yr male admitted for acute sepsis, UTI, ANGELA, and urinary retention. Pt comes to ED d/t no urine output from ennis cath x3-4 days. Sepsis workup completed. Pt found to have significant urinary retention. Ennis catheter replaced (24 coude) with good result. Elevated WBC, BNP, and Creatinine noted, as well as hyperkalemic. Hyperkalemia treated in ED. A&Ox3 VSS, afebrile at this time. 20g to R and L hand as well as RAC Regular diet Pt is currently resting quietly with breakfast tray at bedside.
[2025-07-11 07:55] VITALS: BP 107/47; PULSE 88; RESP 20; O2SAT 94
--- NOTE | 2025-07-11 09:21 | HO.PM.IMPN ---
Subjective Subjective Date of Service: 07/11/25 Interval History: f/u on uti, hyperkalemia, ennis malfunction clinically better, high K resolved Physical Exam Vital Signs: Vital Signs: Last Vital Signs Temp 97.6 F 07/11/25 03:47 Pulse 88 07/11/25 07:55 Resp 20 07/11/25 07:55 BP 107/47 L 07/11/25 07:55 Pulse Ox 94 07/11/25 07:55 O2 Del Method Room Air 07/11/25 07:55 BMI result Body Mass Index 25.4 Const: Other: General: AO X 3, no acute distress Resp: CTA bilateral CVS: S1,S2,RRR GI: +BS, NT, no distention Skin: No rash Neuro: motor grossly intact Psych: appropriate affect Objective Data Active Medications Acetaminophen (Acetaminophen 325 Mg Tablet) 975 mg PO Q6H PRN PRN Reason: Pain, Mild 1-3,fever,headache Calcium Carbonate (Calcium Carbonate 750 Mg Tab.Chew) 750 mg PO Q4H PRN PRN Reason: Heartburn Heparin Sodium (Porcine) (Heparin Sodium,Porcine 5,000 Unit/Ml Vial) 5,000 unit SUBCUT Q12H [facility] Last Admin: 07/10/25 23:14 Dose: 5,000 unit Documented By: MIRANDA Ceftriaxone Sodium 2 gm/ (Sodium Chloride) 50 mls @ 100 mls/hr IV Q24H [facility] Magnesium Hydroxide (Milk Of Magnesia 30 Ml Oral.Susp) 30 ml PO DAILY PRN PRN Reason: Constipation Melatonin (Melatonin 3 Mg Tablet) 6 mg PO BEDTIME PRN PRN Reason: Insomnia Ondansetron HCl (Ondansetron Hcl 4 Mg/2 Ml Vial) 4 mg IVPUSH Q8H PRN PRN Reason: Nausea and Vomiting Oxycodone HCl (Oxycodone Hcl Immed Release 5 Mg Tablet) 5 mg PO Q6H PRN PRN Reason: Pain, Severe (Pain Scale 7-10) Sodium Chloride (0.9 % Sodium Chloride Flush 3 Ml Syringe) 3 ml IVFLUSH QSHIFT [facility] Last Admin: 07/11/25 00:08 Dose: Not Given Documented By: MIRANDA Non-Admin Reason: Patient Asleep Tramadol HCl (Tramadol Hcl 50 Mg Tablet) 50 mg PO Q6H PRN PRN Reason: Pain, Moderate(Pain Scale 4-6) Labs 07/11/25 03:56 07/11/25 03:56 Labs: Laboratory Results - last 24 hr 07/10/25 07/10/25 07/10/25 17:57 18:10 20:57 MCV 89.0 MCH 29.8 MCHC 33.5 RDW 15.5 Plt Count 232 D MPV 9.1 L Immature Gran % (Auto) 0.4 Neut % (Auto) 89.7 H Lymph % (Auto) 1.3 L [place] % (Auto) 8.0 Eos % (Auto) 0.4 Baso % (Auto) 0.2 Lymph # (Auto) 0.3 L [place] # (Auto) 1.7 H Eos # (Auto) 0.1 Baso # (Auto) 0.0 Abs Immat Gran (auto) 0.08 H Absolute Neuts (auto) 19.5 H Absolute Nucleated RBC 0.000 Nucleated RBC % (auto) 0.0 Smear Tech's Comments PT 15.4 H INR 1.3 H APTT 26.0 L VBG pH VBG pCO2 VBG pO2 VBG HCO3 VBG O2 Saturation VBG Base Excess Anion Gap 19 18 Estim Creat Clear Calc 9.3 10.7 Estimated GFR 7 8 Random Glucose 99 80 Lactic Acid 1.9 Calcium 10.3 H 9.4 D Magnesium Total Bilirubin 0.4 NT-Pro-B Natriuret Pep Urine Color Yellow Urine Appearance Turbid Urine pH 7.0 Ur Specific [place] 1.015 Urine Protein 300 (3+) H Urine Glucose (UA) Negative Urine Ketones Negative Urine Blood Large (3+) H Urine Nitrite Negative Ur Leukocyte Esterase Large (3+) H Urine RBC >20 H Urine WBC >50 H Ur Squamous Epith Cells 3-5 Urine Bacteria 4+ Hyaline Casts -07/10/25 07/11/25 07/11/25 21:47 01:24 03:56 MCV 89.9 MCH 29.9 MCHC 33.2 RDW 15.5 Plt Count 213 MPV 9.4 Immature Gran % (Auto) 0.4 Neut % (Auto) 85.6 H Lymph % (Auto) 4.5 L [place] % (Auto) 9.2 Eos % (Auto) 0.1 Baso % (Auto) 0.2 Lymph # (Auto) 0.8 L [place] # (Auto) 1.6 H Eos # (Auto) 0.0 Baso # (Auto) 0.0 Abs Immat Gran (auto) 0.07 H Absolute Neuts (auto) 15.0 H Absolute Nucleated RBC 0.000 Nucleated RBC % (auto) 0.0 Smear Tech's Comments VERIFIED PT INR APTT VBG pH 7.36 VBG pCO2 24 VBG pO2 72 VBG HCO3 14 L VBG O2 Saturation 93.0 VBG Base Excess -9.3 Anion Gap 18 17 Estim Creat Clear Calc 11.1 11.1 Estimated GFR 8 8 Random Glucose 88 81 Lactic Acid Calcium 9.0 9.3 Magnesium 2.3 Total Bilirubin NT-Pro-B Natriuret Pep 5260.4 H Urine Color Urine Appearance Urine pH Ur Specific [place] Urine Protein Urine Glucose (UA) Urine Ketones Urine Blood Urine Nitrite Ur Leukocyte Esterase Urine RBC Urine WBC Ur Squamous Epith Cells Urine Bacteria Hyaline Casts Assessment and Plan (1) Urinary tract infection: Status: Acute Plan Patient is a 74-year-old male with past medical history significant for chronic Ennis secondary to BPH, COPD, history of smoking and GERD, who presented to the ED due to weakness, lower abdominal fullness and no urine output x4 days in Ennis catheter. Ennis catheter was malfunctioning, once replaced bladder drained greater than 700 cc. Sepsis secondary to UTI due to acute urinary retention from malfunctioning Ennis catheter Ennis replaced, now draining ceftriaxone pending culture monitor CBC and BMP ANGELA, likely postrenal secondary to malfunctioning Ennis catheter and obstruction cr 7.79 --> 6.79 nephrology consult monitor BMP bilateral renal US acute hyperkalemia, resolved monitor BMP no longer needs tele Moderate COPD, no acute exacerbation continue home medications GERD continue home medications Med rec pending Full code VTE prophylaxis: Heparin Patient with sepsis secondary to UTI from malfunctioning Ennis catheter complicated by ANGELA and acute hyperkalemia, requiring admission for at least 2 midnight stay for IV antibiotics and monitoring. Quality Stroke Does the patient have a stroke diagnosis?: No VTE Prior VTE?: No VTE Risk Level:: Medical - moderate - high VTE Device Contraindication: Treatment Not Indicated VTE Drug Contraindication: N/A - Med Ordered
[2025-07-11] MEDS: 0.9 % Sodium Chloride Flush 3 ML SYRINGE IVFLUSH ×3 (09:31→21:41)
--- NOTE | 2025-07-11 10:20 | PC.NURSE ---
Case management at the bedside.
--- NOTE | 2025-07-11 10:53 | MHC.CM.PN ---
CM met with Patient at bedside, in the ED, and addressed IMM with him, providing Patient with the original and a copy has been placed on the chart. Patient lives alone in an apartment, required no DME, and was active with [facility]. Home/resume said services is the goal and CM has initiated and will follow for dc planning. PCP is Dr. Thaddeus Oreilly and Niece/Chichi may be able to transport home. Sisters, Danielle & Jane are the HCP.
[2025-07-11 11:42] VITALS: BMI 22.8
[2025-07-11 11:51] VITALS: BP 105/57; PULSE 81; RESP 16; TEMP 36; O2SAT 97
--- NOTE | 2025-07-11 12:32 | PM.CNNEP ---
History of Present Illness Reason for Consult Consult date: 07/11/25 Reason for consult: ANGELA Chief Complaint Chief complaint: sepsis, uti History of Present Illness Narrative: 74-year-old male with past medical history significant for chronic Mojica secondary to BPH, COPD, history of smoking and GERD, who presented to the ED due to weakness, lower abdominal fullness and no urine output x4 days in Mojica catheter. The patient reports that he damaged his Mojica catheter 4 days, and it has not been draining since. He denies any fever, chills, nausea or vomiting. No upper respiratory symptoms including shortness of breath, cough or congestion. He has had some weight loss and generalized malaise. Has a history of bilateral hydronephrosis. He had abdominal discomfort for almost a week. Mojica has been changed and currently he is nonoliguric. He was on potassium phosphate 4 times a day. No follow up phosphorus levels are available however he was hyperkalemic at the time admission with a potassium 5.7 this was treated medically Serum creatinine is trending down Review of Systems Constitutional: Denies fever(s) and Denies weight loss Cardiovascular: Denies chest pain Respiratory: Denies cough and Denies hemoptysis Gastrointestinal: Denies diarrhea and Denies nausea Musculoskeletal: Denies back pain Denies focal weakness PMFSH Past Medical History Medical History BPH (benign prostatic hyperplasia) Chronic indwelling Mojica catheter Elevated PSA measurement Pulmonary nodule Personal history of nicotine dependence Dyspnea COPD (chronic obstructive pulmonary disease) Surgical History Surgical History Hx of appendectomy Social History Social History Household Members: None Housing: House Patient Tobacco Use Status: Former Tobacco user Tobacco use type: Cigarette and Cigar Years Smoked: Since 12 years old Second Hand Smoke Exposure: No service: No Meds Allergies Allergy/AdvReac Type Severity Reaction Status Date / Time No Known Allergies Allergy Verified 07/10/25 17:37 Active Medications: Current Medications Acetaminophen (Acetaminophen 325 Mg Tablet) 975 mg PO Q6H PRN PRN Reason: Pain, Mild 1-3,fever,headache Calcium Carbonate (Calcium Carbonate 750 Mg Tab.Chew) 750 mg PO Q4H PRN PRN Reason: Heartburn Heparin Sodium (Porcine) (Heparin Sodium,Porcine 5,000 Unit/Ml Vial) 5,000 unit SUBCUT Q12H [facility] Last Admin: 07/11/25 09:31 Dose: 5,000 unit Ceftriaxone Sodium 2 gm/ (Sodium Chloride) 50 mls @ 100 mls/hr IV Q24H [facility] Magnesium Hydroxide (Milk Of Magnesia 30 Ml Oral.Susp) 30 ml PO DAILY PRN PRN Reason: Constipation Melatonin (Melatonin 3 Mg Tablet) 6 mg PO BEDTIME PRN PRN Reason: Insomnia Ondansetron HCl (Ondansetron Hcl 4 Mg/2 Ml Vial) 4 mg IVPUSH Q8H PRN PRN Reason: Nausea and Vomiting Oxycodone HCl (Oxycodone Hcl Immed Release 5 Mg Tablet) 5 mg PO Q6H PRN PRN Reason: Pain, Severe (Pain Scale 7-10) Sodium Chloride (0.9 % Sodium Chloride Flush 3 Ml Syringe) 3 ml IVFLUSH QSHIFT [facility] Last Admin: 07/11/25 09:31 Dose: 3 ml Tramadol HCl (Tramadol Hcl 50 Mg Tablet) 50 mg PO Q6H PRN PRN Reason: Pain, Moderate(Pain Scale 4-6) Home Medications ?Medication ?Instructions ?Recorded ?Confirmed ?Last Taken ?Type omeprazole 20 mg capsule,delayed 20 mg PO DAILY@0630 07/14/20 07/10/25 07/10/25 History release nebulizers 12/13/22 05/23/25 Unknown History acetaminophen 325 mg tablet 650 mg PO Q6H PRN Pain 02/22/25 07/10/25 Unknown History alfuzosin 10 mg tablet,extended 10 mg PO DAILY 07/10/25 07/10/25 07/10/25 History release 24 hr fluticasone furoate 200 1 ea inhalation DAILY 07/10/25 07/10/25 07/10/25 History mcg-vilanterol 25 mcg/dose inhalation powder (Breo Ellipta) Physical Exam Vital Signs: Last Vital Signs Temp 96.8 F 07/11/25 11:51 Pulse 81 07/11/25 11:51 Resp 16 07/11/25 11:51 BP 105/57 L 07/11/25 11:51 Pulse Ox 97 07/11/25 11:51 O2 Del Method Room Air 07/11/25 11:51 BMI result Body Mass Index 22.8 Comfortable mucosa dry Neck supple no JVD. Lungs entry equal no rales. Heart S1-S2 heard no gallop or rub. Abdomen soft nontender. Neuro alert awake oriented. No asterixis. Extremities no edema. Results Lab Results 07/11/25 03:56 07/11/25 03:56 Lab results: Chemistry 07/10/25 07/10/25 07/11/25 17:57 20:57 01:24 Sodium 136 139 137 Potassium 5.7 H D 4.8 4.4 Carbon Dioxide 18 L 17 L 15 L BUN 123 H 124 H 121 H Creatinine 7.79 H* 6.79 H* 6.55 H* Calcium 10.3 H 9.4 D 9.0 07/11/25 03:56 Sodium 137 Potassium 4.3 Carbon Dioxide 16 L BUN 120 H Creatinine 6.53 H* Calcium 9.3 Hematology 07/10/25 07/11/25 17:57 03:56 WBC 21.7 H 17.5 H Hgb 12.8 L 11.5 L Plt Count 232 D 213 Urinalysis 07/10/25 18:10 Urine Color Yellow Urine Appearance Turbid Urine pH 7.0 Ur Specific [place] 1.015 Urine Protein 300 (3+) H Urine Glucose (UA) Negative Urine Ketones Negative Urine Blood Large (3+) H Urine Nitrite Negative Ur Leukocyte Esterase Large (3+) H Urine RBC >20 H Urine WBC >50 H Ur Squamous Epith Cells 3-5 Hyaline Casts 11-20 Assessment and Plan (1) Acute kidney injury: Status: Acute (2) Acute hyperkalemia: Status: Acute Plan Acute kidney injury most likely due to obstructive uropathy. Mojica has been changed. He is currently nonoliguric. Renal function should gradually improve. No absolute indication for dialysis yet. Maintain intake more than output Hyperkalemia due to potassium supplementation in the setting of ANGELA. Discontinue potassium phosphate. At present potassium has been medically corrected and currently in the normal range. Check phosphorus levels as well. Shall follow along with the team. Procedures Date of Service Date of Service: 07/11/25
--- NOTE | 2025-07-11 13:17 | PHA.MEDREC ---
Pharmacy Consult ? Medication Reconciliation Pharmacy has completed the medication reconciliation.Med rec completed by comparing pharmacy claim history and speaking to his visiting nurse Ricarda.
--- NOTE | 2025-07-11 14:48 | HO.WOUND ---
Wound Consult: Initial 74 yr old male admitted to [facility] [place] [facility] [place] - See progress notes and H&P for detailed history. Wound consult placed for buttocks/groin. Recommendations completed with photo documentation from direct care team and chart review, will attempt to see patient at a later date/time. Buttocks Etiology: MASD/IAD Wound Bed: [place] intact redness mirrored down gluteal cleft Goals of Treatment: ? triad paste/foam for moisture barrier/offloading Groin Etiology: MASD/IAD with fungal component Wound Bed: pink intact with satellite lesions Goals of Treatment: ? antifungal powder per provider order - moisture barrier Recommendations: 1. Turn and Reposition every 2 hours and as needed for patient comfort. Use pillows or wedges to support off loading positions. 2. Off Load all bony prominences with use of pillows and heel boots if needed. Apply Preventative foams where needed. 3. Monitor for incontinence and moisture control, use barrier creams when needed for prevention and treatment. 4. Provide adequate and supplemental nutrition. 5. Order or Continue low air loss mattress. 6. When applicable maintain blood glucose levels per Providers order. Buttocks: Off Load Pressure with Q2 hr turns and use of pillows - Cleanse with PH balance spray or wipes, pat dry. ?Apply thin layer of Triad to wound bed. Do not remove all of paste between applications as this may cause further skin damage.? Cover with foam dressing to aid in off loading and protection from friction. Change every 3 days and PRN. Groin: gentle routine hygiene and incontinence care with pH balanced cleanser and bath wipes. antifungal medication per provider orders: apply a light dusting to prevent caking. apply triad paste BID and PRN. use disposable pads underneath patient when in chair or bed. use proactive toileting to promote continence. Re-consult wound care Nurse for wound deterioration or wound changes.
[2025-07-11 15:55] VITALS: BP 116/56; PULSE 90; RESP 18; TEMP 36.6; O2SAT 97
[2025-07-11] MEDS: Flu Vacc TS2025-26(6mo up)/PF 0.5 ML SYRINGE IM (17:18)
[2025-07-11 19:29] VITALS: BP 107/54; PULSE 82; RESP 18; TEMP 36.6; O2SAT 95
[2025-07-12] VITALS (7 sets, daily range): BP systolic 117–144; BP diastolic 57–77; PULSE 72–89; RESP 16–18; TEMP 36.2–36.8; O2SAT 94–98
[2025-07-12 06:11] LABS: MANUAL DIFF FLAG NO
[2025-07-12 06:14] LABS: Hematocrit 38.1 % (42.0-52.0); Hemoglobin 12.7 g/dl (14.0-18.0); Imm Gran Abs Auto 0.15 X10*3/uL (0.00-0.03); Imm Gran Pct Auto 1.0 % (0.0-0.4); Lymphocytes Absolute Auto 0.7 X10*3/uL (1.2-4.9); Mean Corpuscular HGB Conc 33.3 g/dl (31.0-36.0); Mean Corpuscular Hemoglobin 29.6 pg (27.0-33.0); Mean Corpuscular Volume 88.8 fL (80.0-98.0); NRBC Abs Auto 0.000 X10*3/uL (0.0-0.012); NRBC Pct Auto 0.0 /100WBC (0.0-0.2); Platelet Count 250 X10*3/uL (160-400); Red Blood Count 4.29 X10*6/uL (4.60-5.80); White Blood Count 15.1 X10*3/uL (4.8-10.8)
[2025-07-12 06:33] LABS: Anion Gap 16 (12-20); Blood Urea Nitrogen 101 mg/dL (9-16); Calcium 8.9 mg/dL (8.4-10.2); Carbon Dioxide 18 mmol/L (22-29); Chloride 108 mmol/L (96-108); Creatinine Clr Calc Pharmacy 19.7; Estimated Glomerular Filt Rate 16; Magnesium 1.8 mg/dL (1.6-2.6); Potassium 3.8 mmol/L (3.3-5.1); Sodium 138 mmol/L (135-145)
--- NOTE | 2025-07-12 07:48 | P.PNIM_ITS ---
Subjective Subjective Date of Service: 07/12/25 Interval History: f/u on uti, ANGELA, hyperkalemia, ennis malfunction renal function is better, K is normal urine culture in negative Physical Exam 2 Vital Signs: Vital Signs: Last Vital Signs Temp 97.1 F 07/12/25 07:39 Pulse 77 07/12/25 07:39 Resp 18 07/12/25 07:39 BP 120/57 L 07/12/25 07:39 Pulse Ox 94 07/12/25 07:39 O2 Del Method Room Air 07/12/25 07:39 BMI result Body Mass Index 22.8 Const: Other: General: AO X 3, no acute distress Resp: CTA bilateral CVS: S1,S2,RRR GI: +BS, NT, no distention Skin: No rash Neuro: motor grossly intact Psych: appropriate affect Objective Data Active Medications Acetaminophen (Acetaminophen 325 Mg Tablet) 975 mg PO Q6H PRN PRN Reason: Pain, Mild 1-3,fever,headache Calcium Carbonate (Calcium Carbonate 750 Mg Tab.Chew) 750 mg PO Q4H PRN PRN Reason: Heartburn Heparin Sodium (Porcine) (Heparin Sodium,Porcine 5,000 Unit/Ml Vial) 5,000 unit SUBCUT Q12H [facility] Last Admin: 07/11/25 21:41 Dose: 5,000 unit Documented By: DIXIE Ceftriaxone Sodium 2 gm/ (Sodium Chloride) 50 mls @ 100 mls/hr IV Q24H [facility] Last Infusion: 07/11/25 17:56 Dose: Infused Documented By: MINOO Magnesium Hydroxide (Milk Of Magnesia 30 Ml Oral.Susp) 30 ml PO DAILY PRN PRN Reason: Constipation Melatonin (Melatonin 3 Mg Tablet) 6 mg PO BEDTIME PRN PRN Reason: Insomnia Ondansetron HCl (Ondansetron Hcl 4 Mg/2 Ml Vial) 4 mg IVPUSH Q8H PRN PRN Reason: Nausea and Vomiting Oxycodone HCl (Oxycodone Hcl Immed Release 5 Mg Tablet) 5 mg PO Q6H PRN PRN Reason: Pain, Severe (Pain Scale 7-10) Sodium Chloride (0.9 % Sodium Chloride Flush 3 Ml Syringe) 3 ml IVFLUSH QSHIFT [facility] Last Admin: 07/11/25 21:41 Dose: 3 ml Documented By: HO.[email or web address] Tramadol HCl (Tramadol Hcl 50 Mg Tablet) 50 mg PO Q6H PRN PRN Reason: Pain, Moderate(Pain Scale 4-6) Labs 07/12/25 05:51 07/12/25 05:51 Labs: Laboratory Results - last 24 hr 07/12/25 05:51 MCV 88.8 MCH 29.6 MCHC 33.3 RDW 15.2 Plt Count 250 MPV 9.3 L Immature Gran % (Auto) 1.0 H Neut % (Auto) 83.9 H Lymph % (Auto) 4.8 L Sutter % (Auto) 8.8 Eos % (Auto) 1.3 Baso % (Auto) 0.2 Lymph # (Auto) 0.7 L Sutter # (Auto) 1.3 H Eos # (Auto) 0.2 Baso # (Auto) 0.0 Abs Immat Gran (auto) 0.15 H Absolute Neuts (auto) 12.7 H Absolute Nucleated RBC 0.000 Nucleated RBC % (auto) 0.0 Anion Gap 16 Estim Creat Clear Calc 19.7 Estimated GFR 16 Random Glucose 155 H Calcium 8.9 Phosphorus 5.0 H Magnesium 1.8 Microbiology Microbiology Results: Microbiology 07/10/25 18:03 Blood Culture - Preliminary Blood - Venous No growth after 24 hours. 07/10/25 17:57 Blood Culture - Preliminary Blood - Venous No growth after 24 hours. 07/10/25 Unknown Urine Culture - Preliminary Urine clean catch - Clean Catch Midstream Culture in progress. Assessment and Plan (1) Urinary tract infection: Status: Acute Plan Patient is a 74-year-old male with past medical history significant for chronic Ennis secondary to BPH, COPD, history of smoking and GERD, who presented to the ED due to weakness, lower abdominal fullness and no urine output x4 days in Ennis catheter. Ennis catheter was malfunctioning, once replaced bladder drained greater than 700 cc. Sepsis secondary to UTI with chronic indwelling ennis cath Ennis replaced, now draining well ceftriaxone,change to PO Ceftin monitor CBC and BMP ANGELA, likely postrenal secondary to malfunctioning Ennis catheter causing obstructive uropathy--improving cr 7.79 --> 6.79-->3.62 today nephrology following monitor BMP US--mild bilateral hydro acute hyperkalemia, resolved monitor BMP no longer needs tele Moderate COPD, no acute exacerbation continue home medications GERD continue home medications BPH--Flomax Full code VTE prophylaxis: Heparin Patient with sepsis secondary to UTI from malfunctioning Ennis catheter complicated by ANGELA and acute hyperkalemia, requiring admission for at least 2 midnight stay for IV antibiotics and monitoring. Quality Stroke Does the patient have a stroke diagnosis?: No VTE Prior VTE?: No VTE Risk Level:: Medical - moderate - high VTE Device Contraindication: Treatment Not Indicated VTE Drug Contraindication: N/A - Med Ordered
[2025-07-12] MEDS: 0.9 % Sodium Chloride Flush 3 ML SYRINGE IVFLUSH ×3 (09:37→22:02)
[2025-07-12] MEDS: Fluticasone/Vilanterol 200/25 BLST.W.DEV 1 PUFF INHALE (11:30)
--- NOTE | 2025-07-12 12:43 | PM.PNNEP ---
Subjective Subjective Date of Service: 07/12/25 Interval history: f/u on uti, ANGELA, hyperkalemia, ennis malfunction renal function is better, K is normal urine culture in negative Physical Exam Vital Signs: Vital Signs: Last Vital Signs Temp 97.1 F 07/12/25 07:39 Pulse 76 07/12/25 11:30 Resp 16 07/12/25 11:30 BP 120/57 L 07/12/25 07:39 Pulse Ox 94 07/12/25 07:39 O2 Del Method Room Air 07/12/25 07:39 BMI result Body Mass Index 22.8 Const: Other: General: AO X 3, no acute distress Resp: CTA bilateral CVS: S1,S2,RRR GI: +BS, NT, no distention Skin: No rash Neuro: motor grossly intact Psych: appropriate affect Objective Data Labs 07/12/25 05:51 07/12/25 05:51 Labs: Laboratory Results - last 24 hr 07/12/25 05:51 WBC 15.1 H RBC 4.29 L Hgb 12.7 L Hct 38.1 L MCV 88.8 MCH 29.6 MCHC 33.3 RDW 15.2 Plt Count 250 MPV 9.3 L Immature Gran % (Auto) 1.0 H Neut % (Auto) 83.9 H Lymph % (Auto) 4.8 L Kendall % (Auto) 8.8 Eos % (Auto) 1.3 Baso % (Auto) 0.2 Lymph # (Auto) 0.7 L Kendall # (Auto) 1.3 H Eos # (Auto) 0.2 Baso # (Auto) 0.0 Abs Immat Gran (auto) 0.15 H Absolute Neuts (auto) 12.7 H Absolute Nucleated RBC 0.000 Nucleated RBC % (auto) 0.0 Sodium 138 Potassium 3.8 Chloride 108 Carbon Dioxide 18 L Anion Gap 16 BUN 101 H Creatinine 3.62 H Estim Creat Clear Calc 19.7 Estimated GFR 16 Random Glucose 155 H Calcium 8.9 Phosphorus 5.0 H Magnesium 1.8 Microbiology Microbiology Results: Microbiology 07/10/25 Unknown Urine clean catch - Clean Catch Midstream Urine Culture - Final 07/10/25 18:03 Blood - Venous Blood Culture - Preliminary No growth after 24 hours. 07/10/25 17:57 Blood - Venous Blood Culture - Preliminary No growth after 24 hours. Procedures Date of Service Date of Service: 07/12/25 Assessment & Plan Assessment and plan (1) Acute kidney injury: Status: Acute (2) Acute hyperkalemia: Status: Acute Plan Acute kidney injury most likely due to obstructive uropathy. s/p Ennis change He is currently nonoliguric. Renal function should gradually improve. No absolute indication for dialysis yet. Maintain intake more than output Hyperkalemia due to potassium supplementation in the setting of ANGELA. Discontinued potassium phosphate. At present potassium has been medically corrected and currently in the normal range. Shall follow along with the team. Time Spent With Patient Time: Total time managing care of this patient today ____ minutes. Progress Note: Quality Stroke Does the patient have a stroke diagnosis?: No
--- NOTE | 2025-07-12 16:03 | MHC.CM.PN ---
PT NOT YET MEDICALLY CLEARED, RECEIVING IV ABX DCP: HOME RESUME [facility] TRANSPORT
--- NOTE | 2025-07-12 17:05 | HO.WOUND ---
Wound Consult: Follow up 74 yr old male admitted to [facility] [place] on 07/10/25 - See progress notes and H&P for detailed history. Wound consult placed for buttocks/groin. Patient agreeable to assessment and photo documentation. Buttocks Etiology: MASD/IAD Wound Bed: [place] intact redness mirrored down gluteal cleft - remains blanchable and acattered open areas with pink moist wound beds Goals of Treatment: ? triad paste/foam for moisture barrier/offloading Groin Etiology: MASD/IAD with fungal component Wound Bed: pink intact with satellite lesions Goals of Treatment: ? antifungal powder per provider order - moisture barrier Provider TT to order nystatin powder to treat fungal dermatitis. Recommendations: 1. Turn and Reposition every 2 hours and as needed for patient comfort. Use pillows or wedges to support off loading positions. 2. Off Load all bony prominences with use of pillows and heel boots if needed. Apply Preventative foams where needed. 3. Monitor for incontinence and moisture control, use barrier creams when needed for prevention and treatment. 4. Provide adequate and supplemental nutrition. 5. Order or Continue low air loss mattress. 6. When applicable maintain blood glucose levels per Providers order. Buttocks: Off Load Pressure with Q2 hr turns and use of pillows - Cleanse with PH balance spray or wipes, pat dry. ?Apply thin layer of Triad to wound bed. Do not remove all of paste between applications as this may cause further skin damage.? Cover with foam dressing to aid in off loading and protection from friction. Change every 3 days and PRN. Groin: gentle routine hygiene and incontinence care with pH balanced cleanser and bath wipes. antifungal medication per provider orders: apply a light dusting to prevent caking. apply triad paste BID and PRN. use disposable pads underneath patient when in chair or bed. use proactive toileting to promote continence. Re-consult wound care Nurse for wound deterioration or wound changes.
[2025-07-13] VITALS (7 sets, daily range): BP systolic 110–138; BP diastolic 40–73; PULSE 61–105; RESP 16–19; TEMP 36–36.8; O2SAT 95–97
[2025-07-13] MEDS: Fluticasone/Vilanterol 200/25 BLST.W.DEV 1 PUFF INHALE (07:54)
[2025-07-13] MEDS: 0.9 % Sodium Chloride Flush 3 ML SYRINGE IVFLUSH (09:15)
[2025-07-13 11:04] LABS: Anion Gap 15 (12-20); Blood Urea Nitrogen 62 mg/dL (9-16); Calcium 8.9 mg/dL (8.4-10.2); Carbon Dioxide 22 mmol/L (22-29); Chloride 106 mmol/L (96-108); Creatinine Clr Calc Pharmacy 32.5; Estimated Glomerular Filt Rate 29; Potassium 3.4 mmol/L (3.3-5.1); Sodium 140 mmol/L (135-145)
--- NOTE | 2025-07-13 15:43 | P.PNIM_ITS ---
Subjective Subjective Date of Service: 07/13/25 Interval History: f/u on uti, ANGELA, hyperkalemia, ennis malfunction renal function is better, K is normal urine culture is negative now with weakness Physical Exam 2 Vital Signs: Vital Signs: Last Vital Signs Temp 98 F 07/13/25 07:11 Pulse 105 H 07/13/25 15:08 Resp 16 07/13/25 07:55 BP 138/73 07/13/25 07:11 Pulse Ox 97 07/13/25 15:08 O2 Del Method Room Air 07/13/25 07:11 BMI result Body Mass Index 22.8 Const: Other: General: AO X 3, no acute distress Resp: CTA bilateral CVS: S1,S2,RRR GI: +BS, NT, no distention Skin: No rash Neuro: motor grossly intact Psych: appropriate affect Objective Data Active Medications Acetaminophen (Acetaminophen 325 Mg Tablet) 975 mg PO Q6H PRN PRN Reason: Pain, Mild 1-3,fever,headache Albuterol Sulfate (Albuterol Sulfate (0.083%) 2.5 Mg/3 Ml Vial.Neb) 2.5 mg INHALE Q4H PRN PRN Reason: shortness of breath or wheezing Albuterol Sulfate (Albuterol Sulfate 90 Mcg 8 Gm Inhaler) 2 puff INHALE QID PRN PRN Reason: shortness of breath or wheezing Budesonide (Budesonide 0.5 Mg/2 Ml Ampul.Neb) 0.5 mg INHALE BID [facility] Last Admin: 07/13/25 07:54 Dose: 0.5 mg Documented By: RISHI Calcium Carbonate (Calcium Carbonate 750 Mg Tab.Chew) 750 mg PO Q4H PRN PRN Reason: Heartburn Finasteride (Finasteride 5 Mg Tablet) 5 mg PO DAILY [facility] Last Admin: 07/13/25 09:14 Dose: 5 mg Documented By: FLYNN Fluticasone/Vilanterol (Fluticasone/Vilanterol 200/25 Blst.W.Dev) 1 puff INHALE RDAILY [facility] Last Admin: 07/13/25 07:54 Dose: 1 puff Documented By: RISHI Heparin Sodium (Porcine) (Heparin Sodium,Porcine 5,000 Unit/Ml Vial) 5,000 unit SUBCUT Q12H [facility] Last Admin: 07/13/25 09:14 Dose: 5,000 unit Documented By: FLYNN Ceftriaxone Sodium 2 gm/ (Sodium Chloride) 50 mls @ 100 mls/hr IV Q24H [facility] Last Admin: 07/13/25 15:23 Dose: Not Given Documented By: FLYNN Non-Admin Reason: hold per MD d/t no IV access, PO ceftin Magnesium Hydroxide (Milk Of Magnesia 30 Ml Oral.Susp) 30 ml PO DAILY PRN PRN Reason: Constipation Melatonin (Melatonin 3 Mg Tablet) 6 mg PO BEDTIME PRN PRN Reason: Insomnia Montelukast Sodium (Montelukast Sodium 10 Mg Tablet) 10 mg PO BEDTIME [facility] Last Admin: 07/12/25 22:01 Dose: 10 mg Documented By: BOBBI Multivitamins/Vitamin C (Multivitamin Tablet) 1 tab PO DAILY [facility] Last Admin: 07/13/25 09:14 Dose: 1 tab Documented By: FLYNN Omeprazole (Omeprazole 20 Mg Capsule.) 20 mg PO DAILY@0630 [facility] Last Admin: 07/13/25 06:16 Dose: 20 mg Documented By: KAROL Ondansetron HCl (Ondansetron Hcl 4 Mg/2 Ml Vial) 4 mg IVPUSH Q8H PRN PRN Reason: Nausea and Vomiting Oxycodone HCl (Oxycodone Hcl Immed Release 5 Mg Tablet) 5 mg PO Q6H PRN PRN Reason: Pain, Severe (Pain Scale 7-10) Sodium Chloride (0.9 % Sodium Chloride Flush 3 Ml Syringe) 3 ml IVFLUSH QSHIFT [facility] Last Admin: 07/13/25 15:17 Dose: Not Given Documented By: FLYNN Non-Admin Reason: no IV access Tamsulosin HCl (Tamsulosin Hcl 0.4 Mg Capsule) 0.4 mg PO DAILY [facility] Last Admin: 07/13/25 09:14 Dose: 0.4 mg Documented By: FLYNN Tamsulosin HCl (Tamsulosin Hcl 0.4 Mg Capsule) 0.4 mg PO BEDTIME [facility] Last Admin: 07/12/25 22:01 Dose: 0.4 mg Documented By: BOBBI Tramadol HCl (Tramadol Hcl 50 Mg Tablet) 50 mg PO Q6H PRN PRN Reason: Pain, Moderate(Pain Scale 4-6) Labs 07/12/25 05:51 07/13/25 09:50 Labs: Laboratory Results - last 24 hr 07/13/25 07/13/25 09:50 09:51 Hold Purple Top SEE NOTE Anion Gap 15 Estim Creat Clear Calc 32.5 Estimated GFR 29 Random Glucose 123 H Calcium 8.9 Microbiology Microbiology Results: Microbiology 07/10/25 17:57 Blood Culture - Preliminary Blood - Venous Prelim: GPR Gram Stain only 07/10/25 18:03 Blood Culture - Preliminary Blood - Venous No growth after 48 hours. Assessment and Plan (1) Urinary tract infection: Status: Acute Plan Patient is a 74-year-old male with past medical history significant for chronic Ennis secondary to BPH, COPD, history of smoking and GERD, who presented to the ED due to weakness, lower abdominal fullness and no urine output x4 days in Ennis catheter. Ennis catheter was malfunctioning, once replaced bladder drained greater than 700 cc. Sepsis secondary to UTI with chronic indwelling ennis cath Ennis replaced, now draining well ceftriaxone,change to PO Ceftin monitor CBC and BMP ANGELA, likely postrenal secondary to malfunctioning Ennis catheter causing obstructive uropathy--improving cr 7.79 --> 6.79-->3.62 --> 2,2 today nephrology following monitor BMP US--mild bilateral hydro acute hyperkalemia, resolved monitor BMP no longer needs tele Moderate COPD, no acute exacerbation continue home medications GERD continue home medications BPH--Flomax weakness: PT advises short term rehab, he's agreable Full code VTE prophylaxis: Heparin Patient with sepsis secondary to UTI from malfunctioning Ennis catheter complicated by ANGELA and acute hyperkalemia, requiring admission for at least 2 midnight stay for IV antibiotics and monitoring. Quality Stroke Does the patient have a stroke diagnosis?: No VTE Prior VTE?: No VTE Risk Level:: Medical - moderate - high VTE Device Contraindication: Treatment Not Indicated VTE Drug Contraindication: N/A - Med Ordered
--- NOTE | 2025-07-13 15:50 | PC.NURSE ---
Plan STR for d/c.
--- NOTE | 2025-07-13 16:11 | MHC.CM.PN ---
CM MET WITH PT TO DISCUSS DCP, PT IS AWARE STR WAS RECOMMENDED, BUT STATES HE WOULD PREFER TO DC HOME PT ADMITS HE DID SWAY A COUPLE TIMES WITH PT BUT DENIES LOSING HIS BALANCE HE CONTINUES TO REPORT HOME IS HIS PREFERENCE, HOWEVER AGREES TO REFERRALS AND SAYS HE WILL GO IF THERE ARE BED OFFERS SANKET DID RECEIVE A MESSAGE THAT A REFERRAL TO [facility] BE MADE, IT WAS SENT
--- NOTE | 2025-07-13 16:49 | PC.NURSE ---
provider okay with no IV access, pt medically DC for rehab
[2025-07-14 04:00] VITALS: BP 129/61; PULSE 86; RESP 18; TEMP 36.5; O2SAT 98
[2025-07-14 06:54] VITALS: BP 117/54; PULSE 71; RESP 16; TEMP 36.6; O2SAT 95
[2025-07-14 07:39] VITALS: PULSE 71; RESP 16; O2SAT 95
[2025-07-14] MEDS: Fluticasone/Vilanterol 200/25 BLST.W.DEV 1 PUFF INHALE (07:39)
--- NOTE | 2025-07-14 10:22 | PM.DS ---
DS: Providers Provider Date of Service: 07/14/25 Date of admission: 07/10/25 21:29 Date of discharge: 07/14/25 Primary care physician: Thaddeus Oreilly MD Consults: 07/11/25 04:53 Consult to Nephrology Routine Consulting Provider: [facility] Reason for consultation: cr 7.79 Has provider been notified: No 07/11/25 13:47 Consult to Wound Care Routine Consulting Provider: [facility] Reason for consultation: wound DS: Diagnosis Discharge Diagnosis (1) Acute kidney injury: Status: Acute (2) Acute hyperkalemia: Status: Acute DS: Summary Hospital Course Hospital Course: Admission hpi Chief Complaint: Weakness, ennis malfunctioning Patient is a 74-year-old male with past medical history significant for chronic Ennis secondary to BPH, COPD, history of smoking and GERD, who presented to the ED due to weakness, lower abdominal fullness and no urine output x4 days in Ennis catheter. The patient reports that he damaged his Ennis catheter 4 days, and it has not been draining since. He denies any fever, chills, nausea or vomiting. No upper respiratory symptoms including shortness of breath, cough or congestion. He has had some weight loss and generalized malaise. Hospital course Patient is a 74-year-old male with a past medical history significant for chronic Ennis catheter secondary to BPH, COPD, history of smoking, and GERD, who presented to the ED with weakness, lower abdominal fullness, and no urine output for four days via Ennis catheter. The Ennis catheter was found to be malfunctioning; after replacement, the bladder drained over 700 cc. Sepsis secondary to UTI due to acute urinary retention from malfunctioning Ennis catheter. Ennis was replaced and is now draining properly. UTI has been treated with Rocephin; urine culture has been negative. Blood culture grew a gram-positive dora, likely a contaminant. Will transition antibiotics to cefuroxime axetil (Ceftin) for 10 days. Of note blood culture grew 1/2 gram positve dora, likely an contaminant and non pathogenic, ANGELA, likely secondary to obstructive uropathy from malfunctioning Ennis catheter. Renal ultrasound showed mild hydronephrosis. Creatinine trended as follows: 7.79 -> 6.79 -> 6.53 .> 3.62-> today (11/9) Nephrology consulted and following closely amd will follow on outpatient basis Acute hypErkalemia due to renal failure, now resolved. Moderate COPD, no acute exacerbation. Continue home medications. GERD Continue home medications. Dispo: Home Time Attestation Discharge Coordination Time (in mins): 45 Quality: Safe Use of Opioids Does Pt have an Active Cancer Diagnosis on the Problem List?: No Quality: Stroke Does the patient have a stroke diagnosis?: No Physical Exam Vital Signs: Vital Signs: Last Vital Signs Temp 98 F 07/13/25 07:11 Pulse 75 07/13/25 07:55 Resp 16 07/13/25 07:55 BP 138/73 07/13/25 07:11 Pulse Ox 95 07/13/25 07:11 O2 Del Method Room Air 07/13/25 07:11 BMI result Body Mass Index 22.8 DS: Data Data Completed and Pending Labs on day of discharge: Preliminary micro results at discharge 07/10/25 17:57 Blood Culture - Preliminary Blood - Venous Prelim: GPR Gram Stain only 07/10/25 18:03 Blood Culture - Preliminary Blood - Venous No growth after 48 hours. Discharge Plan Discharge Anticipated Discharge Date/Time: 07/14/25 10:22 Patient Disposition: Xfer SNF Discharge Diagnosis: UTI, ANGELA, obstructive uropathy, Referrals: [facility] [Outside] Pramod Beltran MD [Physician, Nephrology] - 1 Week Thaddeus Oreilly MD [Primary Care Provider, Internal Medicine] - 1 Week Discharge Medications: New cefuroxime axetil 250 mg Tablet 250 mg PO BID Qty: 11 0RF Continued albuterol sulfate [Ventolin HFA] 90 mcg/actuation HFA aerosol inhaler 2 puff inhalation QID PRN (Reason: shortness of breath or wheezing) Qty: 18 0RF acetaminophen 325 mg Tablet 650 mg PO Q6H PRN (Reason: Pain) finasteride 5 mg tablet 5 mg PO DAILY 90 Days Qty: 90 0RF Rx Instructions: Daily tablet alfuzosin 10 mg tablet extended release 24 hr 10 mg PO DAILY fluticasone furoate-vilanterol [Breo Ellipta] 200-25 mcg/dose blister with device 1 ea inhalation DAILY budesonide 0.5 mg/2 mL suspension for nebulization 0.5 mg inhalation BID Centrum Men 8 mg iron- 200 mcg-600 mcg Tablet 1 tab PO DAILY omeprazole 20 mg capsule,delayed release(DR/EC) 20 mg PO DAILY@0630 ([facility]) nebulizers Misc See Rx Instructions .Route Rx Instructions: As directed tamsulosin 0.4 mg capsule 0.4 mg PO BEDTIME 90 Days Qty: 90 3RF montelukast [Singulair] 10 mg tablet 10 mg PO BEDTIME 30 Days Qty: 30 11RF albuterol sulfate 2.5 mg /3 mL (0.083 %) solution for nebulization 2.5 mg inhalation Q4H PRN (Reason: shortness of breath or wheezing) 30 Days Qty: 360 11RF Discharge Orders: Discharge Order (Routine); Ordered 07/14/25 Ordered By: Mt Rodriguez Diet: Advance to usual diet Activity on Discharge: As tolerated Stand Alone Forms: Patient Portal Discharge page Print Language: Armenian Care Plan Goals: recovery from kidney failure from malfunctioning ennis catheter, uti and high potassium Health Concerns: kidney failure, malfunction ennis catherer, uti Plan of Treatment: take Cefuroxime as directed, Yunior with primary care doctor Assessment: see above
--- NOTE | 2025-07-14 11:37 | MHC.CM.PN ---
Addendum entered by Ricarda Weiss 07/14/25 11:40: PTS SISTER, DEVIKA [phone] UPDATED PER HIS REQUEST Original Note: PT ACCEPTED AT [facility] AFTER MUCH DISCUSSION, PT AGREEABLE TO REHAB HE WILL GO BY [facility] AT 1300 HOURS CM WILL UPDATED SISTER
[2025-07-14 11:40] LABS: Anion Gap 16 (12-20); Blood Urea Nitrogen 49 mg/dL (9-16); Calcium 8.9 mg/dL (8.4-10.2); Carbon Dioxide 23 mmol/L (22-29); Chloride 107 mmol/L (96-108); Creatinine Clr Calc Pharmacy 38.2; Estimated Glomerular Filt Rate 35; Potassium 4.1 mmol/L (3.3-5.1); Sodium 142 mmol/L (135-145)
--- OUTSIDE RECORDS SUMMARY | 2025-08-09 19:00 | XMS_ITS | Clinical Summary ---
Author Organization Unknown Care Team Providers Care Chainstitch Seat Joiner Name Role Phone NATALIE BELTRAN, DYLAN Unavailable Unavailable MARIO ANDRE, TAY Unavailable Unavailable Payers Payer Name Policy Type Policy Number Effective Date Expira tion Date ON DEMAND [place] [id number] [place] [id number] Problems Condition Name Condition Details Condition Category Status Onset Date Resolution Date Last Treatment Date Treating Clinician Comments CHRONIC OBSTRUCTIVE PULMONARY DISEASE, UNSPECIFIED Active 2024-09 00:00: 00 BENIGN PROSTATIC HYPERPLASIA WITHOUT LOWER URINRY TRACT SYMP Active 02-08 00:00: 00 GASTRO-ESOPH AGEAL REFLUX DISEASE WITHOUT ESOPHAGITIS Active 01-16 00:00: 00 RETENTION OF URINE, UNSPECIFIED Active 02-08 00:00: 00 Allergies, Adverse Reactions, Alerts Allergy Name Allergy Type Status Severity Reaction(s) Onset Date Inactive Date Treating Clinician Comments NKA Propensity to adverse reactions Active 2025-06 14:51:0 6 Medications Ordered Medication Name Filled Medication Name Start Date Stop Date Current Medication? Ordering Clinician Indication Dosage Frequency Signature (SIG) Comments Components acetaminoph en 325 mg tablet 2024-09 00:00: 00 Yes [id number] 1 tablet EVERY 6-8 HOURS NEEDED 1 tablet EVERY 6-8 HOURS NEEDED (route: oral) Med Classific ation: Analgesic , Anti-infl ammatory or Antipyret ic alfuzosin ER 10 mg tablet,exte nded release 24 hr 2024-09 00:00: 00 Yes [id number] 1 tablet BEDTIME 1 tablet BEDTIME (route: oral) Med Classific ation: Genitouri nary Therapy finasteride 5 mg tablet 2024-09 00:00: 00 Yes [id number] 1 tablet BEDTIME 1 tablet BEDTIME (route: oral) Med Classific ation: Genitouri nary Therapy montelukast 10 mg tablet 2024-09 00:00: 00 Yes [id number] 1 tablet BEDTIME 1 tablet BEDTIME (route: oral) Med Classific ation: Respirato ry Therapy Agents omeprazole 20 mg capsule,del ayed release 2024-09 00:00: 00 Yes [id number] 1 capsule EVERY AM 1 capsule EVERY AM (route: oral) Med Classific ation: Gastroint estinal Therapy Agents budesonide 0.5 mg/2 mL suspension for nebulizatio n 2024-09 00:00: 00 Yes [id number] 2 mL 2 TIMES DAILY 2 mL 2 TIMES DAILY (route: inhalation ) Med Classific ation: Respirato ry Therapy Agents albuterol sulfate 2.5 mg/3 mL (0.083 %) solution for nebulizatio n 2024-09 00:00: 00 Yes [id number] 3 mL 2 TIMES DAILY 3 mL 2 TIMES DAILY (route: inhalation ) Med Classific ation: Respirato ry Therapy Agents Vital Signs Vital Name Observation Time Observation Value Commen ts Pulse 2025-06-12 14:45:00.000 92 /min O2 Saturation (%) 2025-06-12 14:45:00.000 97 % Respirations 2025-06-12 14:45:00.000 12 /min Systolic Blood Pressure 2025-06-12 14:45:00.000 140 mm [Hg] Diastolic Blood Pressure 2025-06-12 14:45:00.000 70 mm [Hg] Plan of Treatment Planned Activity Planned Date Details Comments Future Scheduled Test SKILLED NU RSE TO EVALUATE PATIENT, IDENTIFY PRIMARY AND CO-MORBID CONDITIONS CODED PER CODING GUIDELINES, AND DEVELOP PATIENT SPECIFIC PLAN OF CARE THAT INCLUDES PATIENT GOAL FOR HOME HEALTH. [code = SKILLED NURSE TO EVALUATE PATIENT, IDENTIFY PRIMARY AND CO-MORBID CONDITIONS CODED PER CODING GUIDELINES, AND DEVELOP PATIENT SPECIFIC PLAN OF CARE THAT INCLUDES PATIENT GOAL FOR HOME HEALTH.] Future Scheduled Test SKILLED NU RSE TO PERFORM HOME SAFETY AND FALL ASSESSMENT AND PROVIDE INSTRUCTION TO IMPLEMENT HOME SAFETY AND FALL PREVENTION STRATEGIES. [code = SKILLED NURSE TO PERFORM HOME SAFETY AND FALL ASSESSMENT AND PROVIDE INSTRUCTION TO IMPLEMENT HOME SAFETY AND FALL PREVENTION STRATEGIES.] Future Scheduled Test SKILLED NU RSE FOR OBSERVATION AND ASSESSMENT OF PATIENT S PAIN LEVEL AND EFFECTIVENESS OF PAIN MANAGEMENT REGIMEN. SKILLED NURSE TO INSTRUCT PATIENT/CAREGIVER REGARDING PHARMACOLOGIC AND NON-PHARMACOLOGIC PAIN CONTROL MEASURES. SKILLED NURSE TO REPORT TO PHYSICIAN IF PAIN IS UNCONTROLLED WITH CURRENT PAIN MANAGEMENT REGIMEN. [code = SKILLED NURSE FOR OBSERVATION AND ASSESSMENT OF PATIENT S PAIN LEVEL AND EFFECTIVENESS OF PAIN MANAGEMENT REGIMEN. SKILLED NURSE TO INSTRUCT PATIENT/CAREGIVER REGARDING PHARMACOLOGIC AND NON-PHARMACOLOGIC PAIN CONTROL MEASURES. SKILLED NURSE TO REPORT TO PHYSICIAN IF PAIN IS UNCONTROLLED WITH CURRENT PAIN MANAGEMENT REGIMEN.] Future Scheduled Test PATIENT WALKER S A RISK OF HOSPITALIZATION AND ED USE. SKILLED NURSE TO ESTABLISH SUPPORT MEASURES TO MINIMIZE RISK OF HOSPITALIZATION AND ED USE, AND INSTRUCT PATIENT/CAREGIVER ON METHODS TO REDUCE AVOIDABLE HOSPITALIZATION AND ED USE. [code = PATIENT HAS A RISK OF HOSPITALIZATION AND ED USE. SKILLED NURSE TO ESTABLISH SUPPORT MEASURES TO MINIMIZE RISK OF HOSPITALIZATION AND ED USE, AND INSTRUCT PATIENT/CAREGIVER ON METHODS TO REDUCE AVOIDABLE HOSPITALIZATION AND ED USE.] Future Scheduled Test SKILLED NU RSE TO O/A OF PATIENTS MENTAL/BEHAVIORAL STATUS, ASSESS VITAL SIGNS EVERY VISIT, ALLOW 2 PRNS FOR MEDICATION MANAGEMENT. [code = SKILLED NURSE TO O/A OF PATIENTS MENTAL/BEHAVIORAL STATUS, ASSESS VITAL SIGNS EVERY VISIT, ALLOW 2 PRNS FOR MEDICATION MANAGEMENT.] Future Scheduled Test SKILLED NU RSE WILL MAINTAIN SITUATIONAL AWARENESS FOR SAFETY AND WILL NOTIFY CLINICAL LEATHER HEEL BREASTER AND PHYSICIAN/PROVIDER WITH ANY CHANGE IN CONDITION. [code = SKILLED NURSE WILL MAINTAIN SITUATIONAL AWARENESS FOR SAFETY AND WILL NOTIFY CLINICAL LEATHER HEEL BREASTER AND PHYSICIAN/PROVIDER WITH ANY CHANGE IN CONDITION.] Future Scheduled Test SKILLED NU RSE FOR O/A OF GENERAL HEALTH STATUS OF PAIN, CARDIAC, RESPIRATORY, GASTROINTESTINAL, GENITOURINARY, SKIN, NEUROLOGIC, ENDOCRINE SYSTEMS TO IDENTIFY CHANGES ASSOCIATED WITH EXACERBATION FOR EARLY INTERVENTION OF COMPLICATIONS EACH VISIT [code = SKILLED NURSE FOR O/A OF GENERAL HEALTH STATUS OF PAIN, CARDIAC, RESPIRATORY, GASTROINTESTINAL, GENITOURINARY, SKIN, NEUROLOGIC, ENDOCRINE SYSTEMS TO IDENTIFY CHANGES ASSOCIATED WITH EXACERBATION FOR EARLY INTERVENTION OF COMPLICATIONS EACH VISIT] Future Scheduled Test SKILLED NU RSE TO REVIEW PATIENT MEDICATIONS. INSTRUCT PATIENT/CAREGIVER ON MONITORING OF EFFECTIVENESS, ADVERSE DRUG REACTIONS, SIDE EFFECTS OF ALL MEDICATIONS (PRESCRIPTION/-OTC), AND HOW AND WHEN TO REPORT PROBLEMS. [code = SKILLED NURSE TO REVIEW PATIENT MEDICATIONS. INSTRUCT PATIENT/CAREGIVER ON MONITORING OF EFFECTIVENESS, ADVERSE DRUG REACTIONS, SIDE EFFECTS OF ALL MEDICATIONS (PRESCRIPTION/-OTC), AND HOW AND WHEN TO REPORT PROBLEMS.] Future Scheduled Test SKILLED NU RSE TO PRE-POUR MEDICATION PER MEDICATION LIST WEEKLY. [code = SKILLED NURSE TO PRE-POUR MEDICATION PER MEDICATION LIST WEEKLY.] Future Scheduled Test SKILLED NU RSE TO ASSESS PATIENT S PSYCHOSOCIAL STATUS TO IDENTIFY POTENTIAL ISSUES THAT MAY COMPLICATE THE PROVISION OF THE PLAN OF CARE INCLUDING THE PATIENT S ABILITY TO ACCESS COMMUNITY RESOURCES AND PSYCHOSOCIAL SUPPORT SERVICES. [code = SKILLED NURSE TO ASSESS PATIENT S PSYCHOSOCIAL STATUS TO IDENTIFY POTENTIAL ISSUES THAT MAY COMPLICATE THE PROVISION OF THE PLAN OF CARE INCLUDING THE PATIENT S ABILITY TO ACCESS COMMUNITY RESOURCES AND PSYCHOSOCIAL SUPPORT SERVICES.] Future Scheduled Test SKILLED NU RSE MAY PICKUP AND TRANSPORT MEDICATIONS [code = SKILLED NURSE MAY PICKUP AND TRANSPORT MEDICATIONS] Future Scheduled Test SKILLED NU RSE FOR O/A, TEACHING AND MANAGEMENT BPH FOR EARLY IDENTIFICATION OF EXACERBATION OF DISEASE PROCESS [code = SKILLED NURSE FOR O/A, TEACHING AND MANAGEMENT BPH FOR EARLY IDENTIFICATION OF EXACERBATION OF DISEASE PROCESS] Goal Patient Goal - TAKE MY PILLS ON MY OWN Goal Provider Goal - A PLAN OF CARE WILL BE ESTABLISHED THAT MEETS PATIENT'S HALFWAY NEEDS AND INCLUDES PATIENT GOAL FOR HOME HEALTH. Goal Provider Goal - PATIENT/CAREGIVER WILL VERBALIZE/DEMONSTRATE EFFECTIVE HOME SAFETY AND FALL PREVENTION STRATEGIES THROUGHOUT CERTIFICATION PERIOD. Goal Provider Goal - PATIENT/CAREGIVER WILL DEMONSTRATE UNDERSTANDING OF PHARMACOLOGIC AND NONPHARMACOLOGIC PAIN CONTROL MEASURES AND PATIENT WILL HAVE IMPROVEMENT IN PAIN INTERFERING WITH ACTIVITY EVIDENCED BY PAIN AT A LEVEL THAT IS ACCEPTABLE TO THE PATIENT AND PAIN LEVEL WITHIN ESTABLISHED PARAMETERS BY END OF CERTIFICATION PERIOD. Goal Provider Goal - PATIENT WILL HAVE SUPPORT MEASURES ESTABLISHED TO PREVENT HOSPITALIZATION AND ED USE AND PATIENT/CAREGIVER WILL VERBALIZE/DEMONSTRATE METHODS TO REDUCE AVOIDABLE HOSPITALIZATION AND ED USE BY END OF EPISODE. Goal Provider Goal - ALTERED MENTAL/BEHAVIORAL STATUS WILL BE IDENTIFIED PROMPTLY AND INTERVENTION INITIATED QUICKLY TO MINIMIZE ASSOCIATED RISKS THROUGHOUT CERTIFICATION PERIOD. Goal Provider Goal - PATIENT WILL REMAIN SAFE IN THE COMMUNITY AND WILL BE FREE OF DANGER TO SELF AND OTHERS THROUGHOUT THE CERTIFICATION PERIOD. Goal Provider Goal - CHANGE IN GENERAL HEALTH STATUS WILL BE IDENTIFIED AND REPORTED TO PHYSICIAN FOR PROMPT INTERVENTION TO MINIMIZE ASSOCIATED RISKS THROUGHOUT CERTIFICATION PERIOD. Goal Provider Goal - PATIENT/CAREGIVER WILL VERBALIZE UNDERSTANDING OF EDUCATION PROVIDED ON MEDICATIONS BY THE END OF THE CERTIFICATION PERIOD. Goal Provider Goal - PATIENT WILL COMPLY WITH MEDICATION WHEN SKILLED NURSE PRE-POURS MEDICATION THROUGHOUT CERTIFICATION PERIOD. Goal Provider Goal - PSYCHOSOCIAL NEEDS WILL BE IDENTIFIED AND PLAN IMPLEMENTED TO MINIMIZE RISK THROUGHOUT CERTIFICATION PERIOD. Goal Provider Goal - SKILLED NURSE PICKED UP AND TRANSPORTED MEDICATIONS FOR SAFETY. Goal Provider Goal - PATIENT/CAREGIVER WILL VERBALIZE UNDERSTANDING OF BPH GENITOURINARY DISEASE PROCESS, AND EXACERBATIONS OF GENITOURINARY DISEASE WILL BE PROMPTLY IDENTIFIED FOR EARLY INTERVENTION THROUGHOUT THE CERTIFICATION PERIOD. Progress Notes Progress Notes <paragraph>[Visit Date: 2024 by TAY MARTIN RN]:</paragraph><paragraph>RYAN HAS DISCONNECTED HIS WALLACE BAG, SAYING HE HASNT URINATED YET TODAY. NO PAIN ON PALPATION OF ABDOMEN, NO FULL BLADDER. WHOLE HOUSE SMELLS STRONGLY OF URINE, CANT TELL IF ITS HUMAN OR CAT. PATIENT IS VERY THIN, PANTS FALLING OFF, TELLING ME ALL THE REASONS WHY HE FORGETS TO EAT. 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 I TOLD HIM TO DRINK A COUPLE OF LARGE GLASSES OF WATER BECAUSE HE COULD BE DEHYDRATED. RECOMMENDED TO REATTACH LEG BAG TO AVOID INFECTION. HE REPORTS HE IS DUE TO SEE UROLOGIST TO CHANGE WALLACE NEXT WEEK, HAS RIDE. SOME CONCERN ABOUT HIM BEING ALONE - NEED PRN VISIT FOR TUESDAY.</paragraph> Encounters Start Date/Time End Date/Time Encounter Type Admission Type Attending [facility] Care Facility Care Department Encounter ID Discharge Date Discharge Status Discharge Condition Discharge Reason Percent Goals Met 2025-06-12 00:00:00 2025-08-10 00:00:00 Outpatient NEW ADMISSION TAY MARTIN [facility] [id number] [id number]
== END 2025-07-14 13:17 | disposition skilled nursing facility (03) | DRG 698 ==
LOC: HO.ED 19:35 → HO.EDOVER 21:46 → HO.S3 07-11 10:56
PROVIDERS: Admitting Provider Physician Assistant; Emergency Provider Emergency Medicine; PCP Internal Medicine Medical Oncology; Visit Provider Internal Medicine
DX: T83.098A Other mechanical complication of other urinary catheter, initial encounter (principal); A41.9 Sepsis, unspecified organism; N17.9 Acute kidney failure, unspecified; N13.6 Pyonephrosis; Y73.8 Miscellaneous gastroenterology and urology devices associated with adverse incidents, not elsewhere classified; N40.1 Benign prostatic hyperplasia with lower urinary tract symptoms; R33.8 Other retention of urine; E87.5 Hyperkalemia; K21.9 Gastro-esophageal reflux disease without esophagitis; Z87.891 Personal history of nicotine dependence; Z79.899 Other long term (current) drug therapy
CPT/HCPCS: 36415; 71045; 74176; 76775; 80048; 81001; 81003; 82247; 82803; 83605; 83735; 83880; 84100; 85025; 85610; 85730; 87040; 87076; 87086; 87205; 90656; 93005; 94640; 97162; 99285; J0613; J0696; J1644; J1938; J3373

== ENCOUNTER → 2025-07-10 17:36 | Outpatient (BNV) | payer MEDICARE, SELFPAY | PROVIDERS: Emergency Provider Emergency Medicine; PCP Internal Medicine Medical Oncology; Visit Provider Radiology Diagnostic Radiology | DX: N13.30 Unspecified hydronephrosis (principal); R79.89 Other specified abnormal findings of blood chemistry | CPT/HCPCS: 76775 ==

== ENCOUNTER 2025-07-10 21:29 | Outpatient (BNV) | payer MEDICARE, SELFPAY | END 2025-07-11 09:03 | PROVIDERS: Admitting Provider Physician Assistant; Emergency Provider Emergency Medicine; PCP Internal Medicine Medical Oncology; Visit Provider Internal Medicine Cardiovascular Disease | DX: I49.3 Ventricular premature depolarization (principal) | CPT/HCPCS: 93010 ==

== ENCOUNTER → 2025-07-10 21:29 | Outpatient (BNV) | payer MEDICARE, SELFPAY | PROVIDERS: Admitting Provider Physician Assistant; Emergency Provider Emergency Medicine; PCP Internal Medicine Medical Oncology; Visit Provider Internal Medicine | DX: N39.0 Urinary tract infection, site not specified (principal) | CPT/HCPCS: 99223; 99232 ==

== ENCOUNTER → 2025-07-10 21:29 | Outpatient (BNV) | payer MEDICARE, SELFPAY | PROVIDERS: Admitting Provider Physician Assistant; Emergency Provider Emergency Medicine; PCP Internal Medicine Medical Oncology; Visit Provider Internal Medicine Hypertension Specialist | DX: N17.9 Acute kidney failure, unspecified (principal); E87.5 Hyperkalemia | CPT/HCPCS: 99223 ==

== ENCOUNTER 2025-08-07 15:01 | Outpatient (AMB) | payer MEDICARE, SELFPAY ==
--- OUTSIDE RECORDS SUMMARY | 2025-05-21 10:00 | XMS_ITS ---
Author Organization Thaddeus Oreilly III, MD Address [address] [place] [address] [place] [address] Care Team Providers Care Human Relations Manager Name Role Phone Dr. Thaddeus Oreilly III Primary Care Provider Allergies Allergen (clinical drug ingredient) Drug/Non Drug Allergy documented on EMR Reaction Allergy Type Onset Date Status No Known Drug Allergy Unknown Drug Allergy Active REASON FOR VISIT gerd, copd, Benign prostatic hypertrophy, Overweight, Urine retention, Mojica catheter in place Medications Medication SIG (Take, Route, Frequency, Duration) Notes Start Date End Date Status DuoNeb 0.5-2.5 (3) MG/3ML 3 mL as needed Inhalation twice a day Active Tylenol 325 MG 1 tablet as needed Orally every 6 hrs As needed Active Alfuzosin HCl ER 10 MG 1 tablet Orally Once a day 05/01/2025 Active Finasteride 5 MG 1 tablet Orally Once a day 2024 Active Finasteride 5 MG 1 tablet Orally at b ed time Active Montelukast Sodium 10 MG TAKE 1 TABLET B Y MOUTH AT BEDTIME Diagnosis Unavailable Oral Active Roflumilast 500 MCG 1 tablet Orally Once a day Active Omeprazole 20 MG TAKE 1 CAPSULE BY [facility] EVERY DAY 30 MINUTES BEFORE BREAKFAST Active Ventolin HFA 108 (90 Base) MCG/ACT INHALE 2 PUFFS INTO THE LUNGS EVERY 6 HOURS Active Albuterol Sulfate (2.5 MG/3ML) 0.083% INHALE 3 ML TWICE DAILY WITH NEBULIZER Inhalation Active Budesonide 0.5 MG/2ML INHALE 2 ML BY NEBULIZATION TWICE DAILY FOR 30 DAYS Inhalation Active Alfuzosin HCl ER 10 MG 1 tablet after me al Orally at bed time Active Social History Tobacco Use: Social History [...] non-user Ex-cigaret te smoker Vital Signs Temperature 97.9 degrees Fahrenheit 05/21/20 25 Blood pressure systolic 99 mm Hg 05/21/20 25 Blood pressure diastolic 43 mm Hg 025 Heart Rate 90 /min 05/21/2025 Height 74 in 05/21/2025 Weight 197 lbs 05/21/2025 BMI 25.29 kg/m2 05/21/2025 Encounters Encounter Location Date Provider Diagnosis Thaddeus Oreilly III, MD [address] [place] [address] [place] [address] 05/21/2025 Thaddeus Oreilly Benign prostatic hypertrophy N40.0 ; Urine retention R33.9 ; Overweight (BMI 25.0-29.9) E66.3 ; Former smoker Z87.891 ; Gastroesophageal reflux disease without esophagitis K21.9 ; Pulmonary nodule less than 6 mm determined by computed tomography of lung R91.1 and Chronic obstructive pulmonary disease, unspecified COPD type J44.9 Assessments Encounter Date Diagnosis (ICD Code) Assessment Notes T reatment Notes Treatment Clinical Notes 05/21/2025 Benign prostatic hypertrophy (ICD-10 - N40.0) 05/21/2025 Urine retention (ICD-10 - R33.9) He was acutely ill and was taken to the emergency room at [facility] across the street from my office he was evaluated and subsequently admitted to the hospital.He was discharged after 6 days and spent 2 months in rehabilitation and is now living at home alone with nursing support. He has an indwelling Mojica catheter in place. He will see urology next week for an outpatient voiding trial. 05/21/2025 Overweight (BMI 25.0-29.9) (ICD-10 - E66.3) He is now overweight with a body mass index of 25.68. We discussed his weight loss strategy and I reinforced continued weight loss through diet restricted in fat calories and sodium. 05/21/2025 Former smoker (ICD-1 0 - Z87.891) He is highly motivated not to smoke. We discussed a plan to prevent relapse in times of stress and illness. 05/21/2025 Gastroesophageal reflux disease without esophagitis (ICD-10 - K21.9) His symptoms are well-controlled with current regimen. No change was necessary today. 05/21/2025 Pulmonary nodule les s than 6 mm determined by computed tomography of lung (ICD-10 - R91.1) The 6 mm left lower lobe nodule is stable on a CT scan done in January of this year. He will have an annual CT scan. 05/21/2025 Chronic obstructive pulmonary disease, unspecified COPD type (ICD-10 - J44.9) He will continue to see the crutching contractor regularly. The 6 mm pulmonary nodule will be followed carefully. He is no longer smoking. He will exercise regularly. He will continue to use his nebulizer and his new inhaler. Plan Of Treatment Medication Medication Name Sig Start Date Stop Date Notes DuoNeb 0.5-2.5 (3) MG/3ML 3 mL as needed Inhalation twice a day Tylenol 325 MG 1 tablet as needed O rally every 6 hrs Alfuzosin HCl ER 10 MG 1 tablet Orally Once a day 05/01/20 25 Finasteride 5 MG 1 tablet Orally Once a day 05/01/2025 Finasteride 5 MG 1 tablet Orally at bed time Montelukast Sodium 10 MG TAKE 1 TABLET B Y MOUTH AT BEDTIME Diagnosis Unavailable Oral Roflumilast 500 MCG 1 tablet Orally Once a day Omeprazole 20 MG TAKE 1 CAPSULE BY [facility] EVERY DAY 30 MINUTES BEFORE BREAKFAST Ventolin HFA 108 (90 Base) MCG/ACT INHALE 2 PUFFS INTO THE LUNGS EVERY 6 HOURS Albuterol Sulfate (2.5 MG/3ML) 0.083% INHALE 3 ML TWICE DAILY WITH NEBULIZER Inhalation Budesonide 0.5 MG/2ML INHALE 2 ML BY NEB ULIZATION TWICE DAILY FOR 30 DAYS Inhalation Alfuzosin HCl ER 10 MG 1 tablet after me al Orally at bed time Pending Test Test Name Order Date PROFILE, FASTING (COMPREHENSIVE METABOLI C) 05/21/2025 PSA, TOTAL 05/21/2025 CBC w DIFF 05/21/2025 Lipid Panel 05/21/2025 Next Appt Details Follow Up: 3 Weeks, Reason: OV Provider Name:Thaddeus Oreilly , 09/09/2025 02:45:00 PM, [address] [place] [address] [address], [place], [address], Provider Name:Thaddeus Oreilly , 11/06/2025 03:00:00 PM, [address] [place] [address] [address], [place], [address], Progress Notes * CURT WOODSDOB:1950 (74 yo M)Acc No.[id number]:05/21/2025 Progress Notes Patient: CURT BERRY Provider: Roddy Oreilly MD :1950 A ge:74 Y S ex:Male Date:05/21/2025 Address:[address] [place], [place] [id number] Subjective: * Chief Complaints: * G erdCopdBenign prostatic hypertrophyOverweightUrine retention, Mojica catheter in place * HPI: C OVID-19 Screening: He returns to the office for medical management.In February of 2025 he presented to the office with severe urinary retention and was admitted to the hospital. He was discharged at the end of February of this matter and has been in rrehabilitation in [place]. He has been home for 2 weeks. He is receiving home services from [facility]. He continues to have an indwelling Mojica catheter and is scheduled to see his urologist, Dr. Lindsey, May 23, 2025@9 AM. His understanding is that the catheter will be removed.Was awake and alert today and seeemed stronger. He walks without difficulty. Questions H ave you had any new onset fever, chills, cough, congestion, sore throat, shortness of breath, muscle aches? N o * ROS: G eneral/Constitutional: pain o nly normal aches and pains. C hills d enies.?Fatigue a dmits. F ever d enies. E NT: Decreased hearing m ild. R espiratory: Cough d enies. C ardiovascular: Chest pain with exertion d enies. D yspnea on exertion?denies. S hortness of breath d enies. G astrointestinal: Constipation o ccasional. D ecreased appetite d enies. D iarrhea d enies. H eartburn o ccasional. N ausea d enies. R ectal bleeding d enies. V omiting d enies. H ematology: bruising d enies. p etechiae d enies. S wollen glands n one have been noted. G enitourinary: Frequent urination H as a catheter for urinaary retention.? M usculoskeletal: Muscle aches d enies. P [...] Findings: Tobacco non-user E x-cigarette smoker Taina zavala was born and raised in [facility]. 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 * Medications: T akingFinasteride 5 MG Tablet 1 tablet Orally Once a day Tylenol 325 MG Tablet 1 tablet as [...] List reviewed and reconciled with the patientTaking Finasteride 5 MG Tablet 1 tablet Orally Once a day Taking Tylenol 325 MG Tablet 1 tablet as [...] Verified] Objective: * Vitals: H t: 74, Wt:197, BMI:25.29, BP:99/43, HR:90, Temp:97.9, Wt-k.36. * P ast Orders: Lab:Magnesium * Collection Date 02/27/2025 02/26/2025 02/25/2025 [...] 1.6-2.6 mg/dL) 2.3 (Ref Range: 1.6-2.6 mg/dL) ???Lab:Urine Culture (Order Date - 02/22/2025) (Collection Date & Time - 02/22/2025 07:52 PM)?ValueReference Range?Urine CultureNo growth.- * Lab:Complete Blood Count Aut o Diff [...] 0.0-0.012 X10*3/uL) 0.000 (Ref Range: 0.0-0.012 X10*3/uL) ???Lab:Blood Culture (First) (Order Date - 02/22/2025) (Collection Date & Time - 02/22/2025 06:32 PM)?ValueReference Range?Blood Culture (First)No growth after 5 days.- ???Lab:Liver Panel (Order Date - 02/22/2025) (Collection Date & Time - 02/22/2025 06:32 PM)?ValueReference Range?Bilirubin Total0.60.0- 1.0 - mg/dL?Bilirubin Direct0.30.0-0.5 - mg/dL?Aspartate Amino Mwfbfolfgkr906-09 - U/L?Alanine Zcdeqkqdgraqumco811-28 - U/L?Total Protein7.46.5-8.0 - g/dL?Albumin Level4.33.5-5.0 - g/dL?Alkaline Yfrunfowalr9821-481 - U/L ???Lab:Blood Culture (Second) (Order Date - 02/22/2025) (Collection Date & Time - 02/22/2025 06:32PM)?ValueReference Range?Blood Culture (Second) No growth after 5 days.- * Lab:Basic Metabolic Panel * Collection Date 02/27/2025 [...] Pharmacy 88.0 84.9 68.9 70.9 73.0 25.2 ???Lab:UA ClnCatch+Micro w/rflx Cult (Order Date - 02/22/2025) (Collection Date & Time - 02/22/2025 06:33 PM)?ValueReference Range?Color Urine Yellow-?Appearance UrineClear-?PH5.05.0-9.0 -?Glucose Urine UANegativeNegative - mg/dL?Urine BloodSmall (1+)ANegative - ?Specific [place] - Urine1.0201.005-1.025 -?Urine ProteinNegative Neg-Trace - mg/dL?Urine KetonesTraceNegative - mg/dL?Nitrite Urine NegativeNegative -?Leukocyte Esterase UrineModerate (2+)ANegative - ?RBC Sgswe6-28J0-2 - /HPF?WBC Pxivd25-13E8-6 - /HPF ?Squamous Epithelial Cell Urine0-20-2 - /HPF?Bacteria UrineNone SeenNone Seen -?Hyaline Casts Urine0-20-2 - /LPF ???Lab:Lactic Acid (Order Date - 02/22/2025) (Collection Date & Time - 02/22/2025 06:32 PM)?ValueReference Range?Lactic Acid1.00.5-2.0 - mmol/L * Lab:Comprehensive Met. Panel * Collection Date [...] mg/dL) Creatinine Clr Calc Pharmacy 50.0 NR * Lab:Phosphorus * Collection Date 02/27/2025 02/26/2025 02/25/2025 02/25/2025 02/24/2025 Collection Time 07:00 AM 05:56 AM 03:47 PM 08:44 AM 08:2 3 AM Order Date 02/27/2025 02/26/2025 02/25/2025 02/25/202502/24 Phosphorus 2.0 L (Ref Range: 2.7-4.5 mg/dL) 2.0 L (Ref Range: 2.7-4.5 mg/dL) 2.4 L (Ref Range: 2.7-4.5 mg/dL) 1.4 L (Ref Range: 2.7-4.5 mg/dL) 2.2 L (Ref Range: 2.7-4.5 mg/dL) ???Lab:Hold Lav - Possible Hematology (Order Date - 02/27/2025) (Collection Date & Time - 02/27/2025 07:00 AM)?ValueReference Range?Hold Lav - Possible HematologySEE NOTE- ???Imaging:CT abdomen pelvis wo con (Order Date [...] vascular bruits. LUNGS: : diminished breath sounds throughout. BREASTS: no masses palpable bilaterally. ABDOMEN: b [...] - Male: PENIS: A Mojica catheter is in place attached to a very on his right side which contains normal appearing yellow urine. Assessment: * Assessment: 1. U rine retention - R33.9 (Primary) N otes :He was acutely ill and was taken to the emergency room at [facility] across the street from my office he was evaluated and subsequently admitted to the hospital.He was discharged after 6 days and spent 2 months in rehabilitation and is now living at home alone with nursing support. He has an indwelling Mojica catheter in place. He will see urology next week for an outpatient voiding trial. 2 . B enign prostatic hypertrophy - N40.0 3 . O verweight (BMI 25.0-29.9) - E66.3 N otes :He is now overweight with a body mass index of 25.68. We discussed his weight loss strategy and I reinforced continued weight loss through diet restricted in fat calories and sodium. 4 . F ormer smoker - Z87.891 N otes :He is highly motivated not to smoke. We discussed a plan to prevent relapse in times of stress and illness. 5 . G astroesophageal reflux disease without esophagitis - K21.9 ?Notes :His symptoms are well-controlled with current regimen. No change was necessary today. 6 . P ulmonary nodule less than 6 mm determined by computed tomography of lung - R91.1 N otes :The 6 mm left lower lobe nodule is stable on a CT scan done in January of this year. He will have an annual CT scan. 7 . C hronic obstructive pulmonary disease, unspecified COPD type - J44.9 N otes :He will continue to see the crutching contractor regularly. The 6 mm pulmonary nodule will be followed carefully. He is no longer smoking. He will exercise regularly. He will continue to use his nebulizer and his new inhaler. Plan: * Treatment: 2. C hronic obstructive pulmonary disease, unspecified COPD type Continue Albuterol Sulfate Nebulization Solution, (2.5 MG/3ML) 0.083%, INHALE 3 ML TWICE DAILY WITH NEBULIZER, Inhalation. L AB: PROFILE, FASTING (COMPREHENSIVE METABOLIC) L AB: PSA, TOTAL L AB: CBC w DIFF L AB: Lipid Panel 3. O thers Continue Finasteride Tablet, 5 MG, [...] Follow-up D ietary management education, guidance, and counseling S moking/Tobacco Use Patient counseled on the dangers of tobacco use and urged to quit. 0 05/21/2025 COPD Care Plan: P atient Lifestyle Goals B e able to be more active with friends and family, Relieve symptoms and improve quality of life. T reatment Goals E at a nutritious diet and increase water consumption to 6-8 glasses a day, Exercise to help whole body, including lungs. B arriers n o barriers. S elf-Managment Goals G et an air purifier for the rooms you are in the most, Eat a healthy diet, Exercise at least 3xs per week for at least 30 mins.? * Follow Up: 3 Weeks (Reason: OV) * Images: * Sign off status: Completed true * Provider: Roddy Oreilly MD Date: 0 05/21/2025 Generated for Hayden wiley/Shawn/Joseransmitting on: 1 10/08/2024 06:01 PM EST History and Physical Notes * HPI (History of Present Illness) Category Sub-Category Detail Notes COVID-19 Screening Questions Have you had any new onset fever, chills, cough, congestion, sore throat, shortness of breath, muscle aches?: No Examination Category Sub-Category Detail Notes Genitourinary - Male PENIS: A Mojica cat heter is in place attached to a very on his right side which contains normal appearing yellow urine General Examination GENERAL APPEARANCE: pleasant , well [...] vascular bruits LUNGS: : diminished breath sounds throughout ABDOMEN: bowel sounds normal, no ascites, no [...]
--- OUTSIDE RECORDS SUMMARY | 2025-06-07 08:56 | XMS_ITS ---
Author Organization Thaddeus Oreilly III, MD Address [address] [place] [address] [address] SAEED Yakelin [place] [address] Care Team Providers Care Engineering Production Worker Name Role Phone Dr. Thaddeus Oreilly III Primary Care Provider Reason For Referral Reason Evaluate and Treat Medication Management and Teaching Usp Diagnosis 1 Need for assistance at home and no other household member able to render care (Z74.2) Diagnosis 2 Other specified coun seling (Z71.89) Referral Organization Thaddeus Oreilly III, MD Referring Provider First Name Thaddeus Referring Provider Last Name Denilson Referring Provider Speciality Internal M edicine Referred Provider Augustus Portillo Referred Provider Specialty Unknown General Notes D, Harini 06/07/2025 03:58:05 PM > referral and last 2 progress notes faxed., D, Harini 06/10/2025 10:21:46 AM > Spoke with Shanika Pang from [facility]. Stated patient would benefit under the behavioral health services, for medication management and teaching. Shanika stated it would still be considered intermediate. Would like referral to be refaxed with to [phone]. Referral was refaxed. Referral Priority Routine Referral Appointment Date 06/12/2025 REASON FOR VISIT Patient Concerns Social History Sex Assigned At : Social History Observation Description Sex Assigned At Male Encounters Encounter Location Date Provider Diagnosis Thaddeus Oreilly III, MD [address] [place] [address] [place] [address] 06/07/2025 Thaddeus Oreilly Plan Of Treatment Referrals Referral Date Details 06/07/2025 06/07/2025, Evaluate and Treat Medication Management and Teaching Usp, Augustus Portillo Next Appt Details Provider Name:Thaddeus Gaytan Denilson , 09/09/2025 02:45:00 PM, [address] [place] [address] [address], [place], [address], Provider Name:Thaddeus Gaytan Oreilly , 11/06/2025 03:00:00 PM, [address] [place] [address] [address], [place], [address], Progress Notes * CURT WOODSDOB:1950 (74 yo M)Acc No.[id number]:06/07/2025 Patient: CURT BERRY :1950 A ge:74 Y S ex:Male Address:[address] [place] [address] [place], [address] Subjective: * Chief Complaints: * P atient Concerns * Medical History: * Surgical History: * Hospitalization/Major Diagno stic Procedure: * Medications: Objective: * Vitals: * Physical Examination: Assessment: Plan: * Treatment: * Procedure Codes: * true * Date: Generated for Hayden wiley/Shawn/eTransmitting on: 10/08/2024 06:01 PM EST Consultation Request Notes Referral Date Referring Provider Referred Provider Not kaylee 06/07/2025 Thaddeus Oreilly [facility] Evaluate and Treat Medication Management and Teaching Usp
--- OUTSIDE RECORDS SUMMARY | 2025-06-10 10:15 | XMS_ITS ---
Author Organization Thaddeus Oreilly III, MD Address [address] [place] [address] DR SAEED Yakelin [place] [address] Care Team Providers Care Relays Draftsperson Name Role Phone Dr. Thaddeus Oreilly III Primary Care Provider [phone] Allergies Allergen (clinical drug ingredient) Drug/Non Drug [...] Date Provider Diagnosis Thaddeus Oreilly III, MD [address] [place] [address] DR [place], [place] [phone] 06/10/2025 Thaddeus Oreilly Chronic obstructive pulmonary disease, [...] J44.9) He will continue to see the conversion worker regularly. The 6 mm pulmonary nodule will [...] was taken to the emergency room at [facility] across the street from my office [...] CENTER EVERY DAY 30 MINUTES BEFORE BREAKFAST Ventolin HFA 108 (90 Base) MCG/ACT INHALE 2 PUFFS INTO THE LUNGS EVERY 6 HOURS Finasteride 5 MG 1 tablet Orally Once a day 05/01/2025 Alfuzosin HCl ER 10 MG 1 tablet Orally Once a day 05/01/20 25 Next Appt Details Follow Up: 6 Weeks, Reason: ov Provider Name:Thaddeus Oreilly , 09/09/2025 02:45:00 PM, [address] [place] [address] [address], [place], [address], Provider Name:Thaddeus Oreilly , 11/06/2025 03:00:00 PM, [address] [place] [address] [address], [place], [address], Progress Notes * CURT WOODSDOB:1950 (74 yo M)Acc No.[id number]:06/10/2025 Progress Notes Patient: CURT BERRY Provider: Roddy Oreilly MD :1950 A ge:74 Y S ex:Male Date:06/10/2025 Address:[address] [place], [place] [phone] Subjective: * Chief Complaints: * B alance [...] Taina zavala was born and raised in [facility]. 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 * Medications: T akingFinasteride 5 MG Tablet [...] ?Notes :He will continue to see the conversion worker regularly. The 6 mm pulmonary nodule will [...] was taken to the emergency room at [facility] across the street from my office [...] MD Date: Generated for Kobii saurabh/Luisag/eTransmitting on: 10/08/2024 06:02 PM EST History and Physical Notes * [...]
--- OUTSIDE RECORDS SUMMARY | 2025-06-12 09:40 | XMS_ITS ---
Author Organization Thaddeus Oreilly III, MD Address [address] [place] [address] [place] [address] Care Team Providers Care Security Intelligence Analyst Name Role Phone Dr. Thaddeus Oreilly III Primary Care Provider REASON FOR VISIT Message Social History Sex Assigned At : Social History Observation Description Sex Assigned At Male Encounters Encounter Location Date Provider Diagnosis Thaddeus Oreilly III, MD [address] [place] [address] [place] [address] 06/12/2025 Thaddeus Oreilly Plan Of Treatment Next Appt Details Provider Name:Thaddeus Oreilly , 09/09/2025 02:45:00 PM, [address] [place] [address] [place], [address], Provider Name:Thaddeus Oreilly , 11/06/2025 03:00:00 PM, [address] [place] [address] [place], [phone], Progress Notes * CURT WOODSDOB:1950 (74 yo M)Acc No.[id number]:06/12/2025 Patient: Asa BÁRBARACURT :1950 A ge:74 Y S ex:Male Address:[address] [place] [address], [phone] * true * Date: Generated for Printi ng/Faxing/eTransmitting on: 10/08/2024 06:01 PM EST
--- OUTSIDE RECORDS SUMMARY | 2025-06-12 10:41 | XMS_ITS ---
Author Organization Thaddeus Oreilly III, MD Address [address] [place] [address] [place] [address] Care Team Providers Care Milling Operator Name Role Phone Dr. Thaddeus Oreilly III Primary Care Provider REASON FOR VISIT Safety Concern Social History Sex Assigned At : Social History Observation Description Sex Assigned At Male Encounters Encounter Location Date Provider Diagnosis Thaddeus Oreilly III, MD [address] [place] [address] [place] [address] 06/12/2025 Thaddeus Oreilly Plan Of Treatment Next Appt Details Provider Name:Thaddeus Oreilly , 09/09/2025 02:45:00 PM, [address] [place] [address] [place], [address], Provider Name:Thaddeus Oreilly , 11/06/2025 03:00:00 PM, [address] [place] [address] [place], [address], Progress Notes * CURT WOODSDOB:1950 (74 yo M)Acc No.[id number]:06/12/2025 Patient: Asa GRANGERCURT :1950 A ge:74 Y S ex:Male Address:[address] [place] [address], [phone] * true * Date: Generated for Printi ng/Faxing/eTransmitting on: 10/08/2024 06:00 PM EST
--- OUTSIDE RECORDS SUMMARY | 2025-07-10 08:56 | XMS_ITS ---
Author Organization Thaddeus Oreilly III, MD Address [address] [place] [address] [place] [address] Care Team Providers Care Commercial Real Estate Sales Manager Name Role Phone Dr. Thaddeus Oreilly III Primary Care Provider REASON FOR VISIT Needs call back from Social History Sex Assigned At : Social History Observation Description Sex Assigned At Male Encounters Encounter Location Date Provider Diagnosis Thaddeus Oreilly III, MD [address] [place] [address] [place] [address] 07/10/2025 Thaddeus Oreilly Plan Of Treatment Next Appt Details Provider Name:Thaddeus Oreilly , 09/09/2025 02:45:00 PM, [address] [place] [address] [place], [address], Provider Name:Thaddeus Oreilly , 11/06/2025 03:00:00 PM, [address] [place] [address] [place], [phone], Progress Notes * CURT WOODSDOB:1950 (74 yo M)Acc No.[id number]:07/10/2025 Patient: Asa BÁRBARACURT :1950 A ge:74 Y S ex:Male Address:[address] [place], [place] [address], [address] * true * Date: Generated for Printi ng/Faxing/eTransmitting on: 10/08/2024 06:02 PM EST
--- OUTSIDE RECORDS SUMMARY | 2025-07-24 12:00 | XMS_ITS ---
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 Thaddeus Oreilly III Primary Care Provider [phone] REASON FOR VISIT Follow up Social History Sex Assigned At : Social History Observation Description Sex Assigned At Male Encounters Encounter Location Date Provider Diagnosis Thaddeus Oreilly III, MD [address] [place] [address] [place] [phone] 07/24/2025 Thaddeus Oreilly Plan Of Treatment Next Appt Details Provider Name:Thaddeus Oreilly , 09/09/2025 02:45:00 PM, [address] [place] [address] [place], [address], Provider Name:Thaddeus Oreilly , 11/06/2025 03:00:00 PM, [address] [place] [address] [place], [address], Progress Notes * CURT WOODSDOB:1950 (74 yo M)Acc No.[id number]:07/24/2025 Progress Notes Patient: Asa BÁRBARACURT Provider: Roddy Oreilly MD :1950 A ge:74 Y S ex:Male Date:07/24/2025 Address:[address] [place] [id number] Subjective: * Chief Complaints: * 1 . Follow up. * Medical History: Objective: * Vitals: Assessment: Plan: * Treatment: * Images: * The named appointment provid er may or may not be the originator of this progress note, and it is not deemed complete until electronically signed by the appointment provider. Sign off status: Pending * Provider: Roddy Oreilly MD Date: 09/23/2024 Generated for Hayden wiley/Shawn/Brice on: 10/08/2024 06:00 PM EST
--- OUTSIDE RECORDS SUMMARY | 2025-07-30 12:00 | XMS_ITS ---
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 Thaddeus Oreilly III Primary Care Provider [phone] Allergies Allergen (clinical drug ingredient) Drug/Non Drug Allergy documented on EMR Reaction Allergy Type Onset Date Status No Known Drug Allergy Unknown Drug Allergy Active REASON FOR VISIT Hospital Follow up Medications Medication SIG (Take, Route, Frequency, Duration) Notes Start Date End Date Status DuoNeb 0.5-2.5 (3) MG/3ML 3 mL as needed Inhalation twice a day Active Budesonide 0.5 MG/2ML INHALE 2 ML BY NEBULIZATION TWICE DAILY FOR 30 DAYS Inhalation Active Ventolin HFA 108 (90 Base) MCG/ACT INHALE 2 PUFFS INTO THE LUNGS EVERY 6 HOURS Active Omeprazole 20 MG TAKE 1 CAPSULE BY [facility] EVERY DAY 30 MINUTES BEFORE BREAKFAST Active Roflumilast 500 MCG 1 tablet Orally Once a day Active Finasteride 5 MG 1 tablet Orally Once a day 2024 Active Alfuzosin HCl ER 10 MG 1 tablet Orally Once a day 05/01/2025 Active Tylenol 325 MG 1 tablet as needed Orally every 6 hrs As needed Active Montelukast Sodium 10 MG TAKE 1 [...] Provider Diagnosis Thaddeus Oreilly III, MD [address] [facility] [place] [address] 07/30/2025 Thaddeus Oreilly Chronic obstructive pulmonary disease, unspecified COPD type J44.9 Assessments Encounter Date Diagnosis (ICD Code) Assessment Notes Treatment Notes Treatment Clinical Notes 07/30/2025 Chronic obstructive pulmonary disease, unspecified COPD type (ICD-10 - J44.9) He will continue to see the antenna design engineer regularly. The 6 mm pulmonary nodule will be followed carefully. He is no longer smoking. He will exercise regularly. He will continue to use his nebulizer and his new inhaler. Plan Of Treatment Medication Medication Name Sig Start Date Stop Date Notes DuoNeb 0.5-2.5 (3) MG/3ML 3 mL as needed Inhalation twice a day Budesonide 0.5 MG/2ML INHALE 2 ML BY NEB ULIZATION TWICE DAILY FOR 30 DAYS Inhalation Ventolin HFA 108 (90 Base) MCG/ACT INHALE 2 PUFFS INTO THE LUNGS EVERY 6 HOURS Omeprazole 20 MG TAKE 1 CAPSULE BY [facility] EVERY DAY 30 MINUTES BEFORE BREAKFAST Roflumilast 500 MCG 1 tablet Orally Once a day Finasteride 5 MG 1 tablet Orally Once a day 05/01/2025 Alfuzosin HCl ER 10 MG 1 tablet Orally Once a day 05/01/20 Tylenol 325 MG 1 tablet as needed O rally every 6 hrs Montelukast Sodium 10 MG TAKE 1 TABLET B Y MOUTH AT BEDTIME Diagnosis Unavailable Oral Albuterol Sulfate (2.5 MG/3ML) 0.083% INHALE 3 ML TWICE DAILY WITH NEBULIZER Inhalation Next Appt Details Provider Name:Thaddeus Oreilly , 09/09/2025 02:45:00 PM, [address] [facility] [address], [place], [address], Provider Name:Thaddeus Oreilly , 11/06/2025 03:00:00 PM, [address] [facility] [place], [address], Progress Notes * REGAN WOODS:1950 (74 yo M)Acc No.[id number]:07/30/2025 Patient: CURT BERRY Provider: Roddy Oreilly MD :1950 A ge:74 Y S ex:Male Date:07/30/2025 Address:[address] [place], [place] [phone] Subjective: * Chief Complaints: * 1 . Hospital Follow up. * HPI: C OVID-19 Screening: [...] Taina zavala was born and raised in [facility]. 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 * Medications: T aking Finasteride 5 MG Tablet 1 tablet Orally Once a day , Taking Alfuzosin HCl ER 10 MG Tablet Extended Release 24 Hour 1 tablet Orally Once a day , Taking Tylenol 325 MG Tablet 1 tablet as needed Orally every 6 hrs As needed, Taking DuoNeb 0.5-2.5 (3) MG/3ML Solution 3 mL as needed Inhalation twice a day , Taking Budesonide 0.5 MG/2ML Suspension INHALE [...] ML TWICE DAILY WITH NEBULIZER Inhalation , Medication List reviewed and reconciled with the [...] otes :He will continue to see the antenna design engineer regularly. The 6 mm pulmonary nodule will be followed carefully. He is no longer smoking. He will exercise regularly. He will continue to use his nebulizer and his new inhaler. Plan: * Treatment: * Images: * The named appointment provid er may or may not be the originator of this progress note, and it is not deemed complete until electronically signed by the appointment provider. Sign off status: Pending * Provider: Roddy Oreilly MD Date: 09/29/2024 Generated for Hayden wiley/Shawn/Brice on: 10/08/2024 06:01 PM EST History and Physical [...]
--- OUTSIDE RECORDS SUMMARY | 2025-08-06 11:00 | XMS_ITS ---
Author Organization Thaddeus Oreilly III, MD Address [address] [place] [address] DR SAEED [place]akelin [place] [address] Care Team Providers Care Prospecting Driller Name Role Phone Dr. Thaddeus Oreilly III Primary Care Provider [phone] Allergies Allergen (clinical drug ingredient) Drug/Non Drug Allergy documented on EMR Reaction Allergy Type Onset Date Status No Known Drug Allergy Unknown Drug Allergy Active REASON FOR VISIT Hospital Follow up Medications Medication SIG (Take, Route, Frequency, Duration) Notes Start Date End Date Status Montelukast Sodium 10 MG TAKE 1 TABLET [...] MG TAKE 1 CAPSULE BY [facility] EVERY DAY 30 MINUTES BEFORE BREAKFAST Active Finasteride 5 MG 1 tablet Orally [...] Date Provider Diagnosis Thaddeus Oreilly III, MD [address] [place] [address] [place] [address] 08/06/2025 Thaddeus Oreilly Chronic obstructive pulmonary disease, unspecified COPD type J44.9 Assessments Encounter Date Diagnosis (ICD Code) Assessment Notes Treat ment Notes Treatment Clinical Notes 08/06/2025 Chronic obstructive pulmonary disease, unspecified COPD type (ICD-10 - J44.9) Plan Of Treatment Medication Medication Name Sig Start Date Stop Date Notes Montelukast Sodium 10 MG TAKE 1 TABLET B Y MOUTH AT BEDTIME Diagnosis Unavailable Oral Albuterol Sulfate (2.5 MG/3ML) 0.083% INHALE 3 ML TWICE DAILY WITH NEBULIZER Inhalation Roflumilast 500 MCG 1 tablet Orally Once a day Budesonide 0.5 MG/2ML INHALE 2 ML BY NEB ULIZATION TWICE DAILY FOR 30 DAYS Inhalation Ventolin HFA 108 (90 Base) MCG/ACT INHALE 2 PUFFS INTO THE LUNGS EVERY 6 HOURS Tylenol 325 MG 1 tablet as needed O rally every 6 hrs DuoNeb 0.5-2.5 (3) MG/3ML 3 mL as needed Inhalation twice a day Omeprazole 20 MG TAKE 1 CAPSULE BY [facility] EVERY DAY 30 MINUTES BEFORE BREAKFAST Finasteride 5 MG 1 tablet Orally Once a day 05/01/2025 Alfuzosin HCl ER 10 MG 1 tablet Orally Once a day 05/01/20 25 Next Appt Details Provider Name:Thaddeus Oreilly , 09/09/2025 02:45:00 PM, [address] [place] [address] [address], [place], [address], Provider Name:Thaddeus Oreilly , 11/06/2025 03:00:00 PM, [address] [place] [address] [place], [address], Progress Notes * CURT WOODSDOB:1950 (74 yo M)Acc No.[id number]:08/06/2025 Patient: CURT BERRY Provider: Roddy Oreilly MD :1950 A ge:74 Y S ex:Male Date:08/06/2025 Address:[address] [place], [place] [phone] Subjective: * Chief Complaints: * 1 . [...] arthritis, diabetes mellitus, diagnosed with DM. S ibmike: alive, kidney problems, diagnosed with DM. 3 [...] Taina zavala was born and raised in [facility]. 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 * Medications: T aking Finasteride 5 MG [...] THE LUNGS EVERY 6 HOURS , Taking Roflumilast 500 MCG Tablet 1 tablet Orally Once a day , Taking Montelukast Sodium 10 MG Tablet TAKE 1 TABLET BY MOUTH AT BEDTIME Diagnosis Unavailable Oral , Taking Albuterol Sulfate (2.5 MG/3ML) 0.083% Nebulization Solution INHALE 3 ML TWICE DAILY WITH NEBULIZER Inhalation , Taking Omeprazole 20 MG Capsule Delayed Release TAKE 1 CAPSULE BY MOUTH EVERY DAY 30 MINUTES BEFORE BREAKFAST , Medication List reviewed and reconciled with [...] COPD type - J44.9 Plan: * Treatment: * Images: * The named appointment provid er may or may not be the originator of this progress note, and it is not deemed complete until electronically signed by the appointment provider. Sign off status: Pending * Provider: Roddy Oreilly MD Date: 10/07/2024 Generated for Hayden wiley/Shawn/Deshawnitting on: 10/08/2024 06:01 PM EST History and [...]
--- OUTSIDE RECORDS SUMMARY | 2025-08-07 09:45 | XMS_ITS ---
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 Thaddeus Oreilly III Primary Care Provider Allergies Allergen (clinical drug ingredient) Drug/Non Drug Allergy documented on EMR Reaction Allergy Type Onset Date Status No Known Drug Allergy Unknown Drug Allergy Active REASON FOR VISIT [facility] on 07/10/2025, Dx: Sepsis Medications Medication SIG (Take, Route, Frequency, Duration) [...] MOUTH AT BEDTIME Diagnosis Unavailable Oral Active Alfuzosin HCl ER 10 MG 1 tablet Orally Once a day 05/01/2025 Active Omeprazole 20 MG TAKE 1 CAPSULE BY [facility] EVERY DAY 30 MINUTES BEFORE BREAKFAST Active Finasteride 5 MG 1 tablet Orally Once a day 2024 Active Tylenol 325 MG 1 tablet as needed Orally every 6 hrs As needed Active DuoNeb 0.5-2.5 (3) MG/3ML 3 mL as needed Inhalation twice a day Active Social History Tobacco Use: Social History [...] non-user Ex-cigaret te smoker Vital Signs Temperature 97.3 degrees Fahrenheit 08/07/20 25 Blood pressure systolic 134 mm Hg 08/07/20 25 Blood pressure diastolic 80 mm Hg 025 Heart Rate 96 /min 08/07/2025 Height 74 in 08/07/2025 Weight 188 lbs 08/07/2025 BMI 24.14 kg/m2 08/07/2025 Encounters Encounter Location Date Provider Diagnosis Thaddeus Oreilly III, MD [address] [place] [address] [address] [place] [phone] 08/07/2025 Thaddeus Oreilly Chronic obstructive pulmonary disease, unspecified COPD type J44.9 Assessments Encounter Date Diagnosis (ICD Code) Assessment Notes Treat ment Notes Treatment Clinical Notes 08/07/2025 Chronic obstructive pulmonary disease, unspecified COPD type [...] Y MOUTH AT BEDTIME Diagnosis Unavailable Oral Alfuzosin HCl ER 10 MG 1 tablet Orally Once a day 05/01/20 25 Omeprazole 20 MG TAKE 1 CAPSULE BY [facility] EVERY DAY 30 MINUTES BEFORE BREAKFAST Finasteride 5 MG 1 tablet Orally Once a day 05/01/2025 Tylenol 325 MG 1 tablet as needed O rally every 6 hrs DuoNeb 0.5-2.5 (3) MG/3ML 3 mL as needed Inhalation twice a day Next Appt Details Follow Up: 4 Weeks, Reason: OV Provider Name:Thaddeus Oreilly , 09/09/2025 02:45:00 PM, [address] [place] [address] [address], [place], [address], Provider Name:Thaddeus Ortizne , 11/06/2025 03:00:00 PM, [address] [place] [address] [address], [place], [address], Progress Notes * CURT WOODSDOB:1950 (74 yo M)Acc No.[id number]:08/07/2025 Patient: CURT BERRY Provider: Roddy Oreilly MD :1950 A ge:74 Y S ex:Male Date:08/07/2025 Address:[address] [place], [place] [address], [phone] Subjective: * Chief Complaints: * 1 . [facility] on 07/10/2025, Dx: Sepsis. * HPI: C OVID-19 Screening: recent hospit hfere then [facility] now home for a week, doing ok litetslfe sob, has ennis in leaks. Questions H ave you had any new [...] Taina zavala was born and raised in [facility]. 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 * Medications: T aking Omeprazole 20 MG Capsule Delayed Release TAKE 1 CAPSULE BY MOUTH EVERY DAY 30 MINUTES BEFORE BREAKFAST , Taking Finasteride 5 MG Tablet 1 [...] o Known Drug Allergy. Objective: * Vitals: H t: 74, Wt:188, BMI:24.14, BP:134/80, HR:96, Temp:97.3, Wt-k.28. * P ast Orders: I maging:US renal BI (Order Date - 07/10/2025) (Performed Date - 07/10/2025) Lab:Complete Blood Count Aut o Diff * Collection Date 07/12/2025 07/11/2025 06/03/2025 Collection Time 05:51 AM 03:56 AM 04:34 PM Order Date 07/12/2025 07/11/2025 06/03/2025 White Blood Count 15.1 H (Ref Range: 4.8-10.8 X10*3/uL) 17.5 H (Ref Range: 4.8-10.8 X10*3/uL) 13.1 H (Ref Range: 4.8-10.8 X10*3/uL) Red Blood Count 4.29 L (Ref Range: 4.60-5.80 X10*6/uL) 3.85 L (Ref Range: 4.60-5.80 X10*6/uL) 4.44 L (Ref Range: 4.60-5.80 X10*6/uL) Hemoglobin 12.7 L (Ref Range: 14.0-18.0 g/dl) 11.5 L (Ref Range: 14.0-18.0 g/dl) 13.2 L (Ref Range: 14.0-18.0 g/dl) Hematocrit 38.1 L (Ref Range: 42.0-52.0 %) 34.6 L (Ref Range: 42.0-52.0 %) 40.3 L (Ref Range: 42.0-52.0 %) Mean Corpuscular Volume 88.8 (Ref Range: 80.0-98.0 fL) 89.9 (Ref Range: 80.0-98.0 fL) 90.8 (Ref Range: 80.0-98.0 fL) Mean Corpuscular Hemoglobin 29.6 (Ref Range: 27.0-33.0 pg) 29.9 (Ref Range: 27.0-33.0 pg) 29.7 (Ref Range: 27.0-33.0 pg) Mean Corpuscular HGB Conc 33.3 (Ref Range: 31.0-36.0 g/dl) 33.2 (Ref Range: 31.0-36.0 g/dl) 32.8 (Ref Range: 31.0-36.0 g/dl) Red Cell Distribution Width 15.2 (Ref Range: 11.0-16.0 %) 15.5 (Ref Range: 11.0-16.0 %) 15.0 (Ref Range: 11.0-16.0 %) Platelet Count 250 (Ref Range: 160-400 X10*3/uL) 213 (Ref Range: 160-400 X10*3/uL) 366 (Ref Range: 160-400 X10*3/uL) Mean Platelet Volume 9.3 L (Ref Range: 9.4-12.4 fL) 9.4 (Ref Range: 9.4-12.4 fL) 8.6 L (Ref Range: 9.4-12.4 fL) Neutrophils Percent Auto 83.9 H (Ref Range: 45-73 %) 85.6 H (Ref Range: 45-73 %) 79.0 H (Ref Range: 45-73 %) Imm Gran Pct Auto 1.0 H (Ref Range: 0.0-0.4 %) 0.4 (Ref Range: 0.0-0.4 %) 0.4 (Ref Range: 0.0-0.4 %) Lymphocytes Percent Auto 4.8 L (Ref Range: 20-40 %) 4.5 L (Ref Range: 20-40 %) 11.2 L (Ref Range: 20-40 %) Monocytes Percent Auto 8.8 (Ref Range: 2-11 %) 9.2 (Ref Range: 2-11 %) 7.2 (Ref Range: 2-11 %) Eosinophils Percent Auto 1.3 (Ref Range: 0-4 %) 0.1 (Ref Range: 0-4 %) 1.3 (Ref Range: 0-4 %) Basophils Percent Auto 0.2 (Ref Range: 0-2 %) 0.2 (Ref Range: 0-2 %) 0.9 (Ref Range: 0-2 %) NRBC Pct Auto 0.0 (Ref Range: 0.0-0.2 /100WBC) 0.0 (Ref Range: 0.0-0.2 /100WBC) 0.0 (Ref Range: 0.0-0.2 /100WBC) Neutrophils Absolute Auto 12.7 H (Ref Range: 2.0-8.3 x10*3/uL) 15.0 H (Ref Range: 2.0-8.3 x10*3/uL) 10.3 H (Ref Range: 2.0-8.3 x10*3/uL) Imm Gran Abs Auto 0.15 H (Ref Range: 0.00-0.03 X10*3/uL) 0.07 H (Ref Range: 0.00-0.03 X10*3/uL) 0.05 H (Ref Range: 0.00-0.03 X10*3/uL) Lymphocytes Absolute Auto 0.7 L (Ref Range: 1.2-4.9 X10*3/uL) 0.8 L (Ref Range: 1.2-4.9 X10*3/uL) 1.5 (Ref Range: 1.2-4.9 X10*3/uL) Monocytes Absolute Auto 1.3 H (Ref Range: 0.1-1.2 X10*3/uL) 1.6 H (Ref Range: 0.1-1.2 X10*3/uL) 0.9 (Ref Range: 0.1-1.2 X10*3/uL) Eosinophils Absolute Auto 0.2 (Ref Range: 0.0-0.4 X10*3/uL) 0.0 (Ref Range: 0.0-0.4 X10*3/uL) 0.2 (Ref Range: 0.0-0.4 X10*3/uL) Basophils Absolute Auto 0.0 (Ref Range: 0.0-0.2 X10*3/uL) 0.0 (Ref Range: 0.0-0.2 X10*3/uL) 0.1 (Ref Range: 0.0-0.2 X10*3/uL) NRBC Abs Auto 0.000 (Ref Range: 0.0-0.012 X10*3/uL) 0.000 (Ref Range: 0.0-0.012 X10*3/uL) 0.000 (Ref Range: 0.0-0.012 X10*3/uL) * Lab:Magnesium * Collection Date 07/12/2025 07/11/2025 02/27/2025 Collection Time 05:51 AM 03:56 AM 07:00 AM Order Date 07/12/2025 07/11/2025 02/27/2025 Magnesium 1.8 (Ref Range: 1.6-2.6 mg/dL) 2.3 (Ref Range: 1.6-2.6 mg/dL) 1.9 (Ref Range: 1.6-2.6 mg/dL) * Imaging:CT abdomen pelvis wo con * Performed Date 07/11/2025 02/22/2025 07:03 AM 10:32 PM Order Date 07/11/2025 02/22/2025 * Lab:Basic Metabolic Panel * Collection Date 07/14/2025 07/13/2025 07/12/2025 07/11/2025 07/11/2025 Collection Time 10:31 AM 09:50 AM 05:51 AM 03:56 AM 01:2 4 AM Order Date 07/14/2025 07/13/2025 07/12/2025 07/11/202507/11 Sodium 142 (Ref Range: 135-145 mmol/L) 140 (Ref Range: 135-145 mmol/L) 138 (Ref Range: 135-145 mmol/L) 137 (Ref Range: 135-145 mmol/L) 137 (Ref Range: 135-145 mmol/L) Blood Urea Nitrogen 49 H (Ref Range: 9-16 mg/dL) 62 H (Ref Range: 9-16 mg/dL) 101 H (Ref Range: 9-16 mg/dL) 120 H (Ref Range: 9-16 mg/dL) 121 H (Ref Range: 9-16 mg/dL) Creatinine 1.87 H (Ref Range: 0.5-1.4 mg/dL) 2.20 H (Ref Range: 0.5-1.4 mg/dL) 3.62 H (Ref Range: 0.5-1.4 mg/dL) 6.53 HH (Ref Range: 0.5-1.4 mg/dL) 6.55 HH (Ref Range: 0.5-1.4 mg/dL) Glucose Random 101 (Ref Range: 60-115 mg/dL) 123 H (Ref Range: 60-115 mg/dL) 155 H (Ref Range: 60-115 mg/dL) 81 (Ref Range: 60-115 mg/dL) 88 (Ref Range: 60-115 mg/dL) Calcium 8.9 (Ref Range: 8.4-10.2 mg/dL) 8.9 (Ref Range: 8.4-10.2 mg/dL) 8.9 (Ref Range: 8.4-10.2 mg/dL) 9.3 (Ref Range: 8.4-10.2 mg/dL) 9.0 (Ref Range: 8.4-10.2 mg/dL) Potassium 4.1 (Ref Range: 3.3-5.1 mmol/L) 3.4 (Ref Range: 3.3-5.1 mmol/L) 3.8 (Ref Range: 3.3-5.1 mmol/L) 4.3 (Ref Range: 3.3-5.1 mmol/L) 4.4 (Ref Range: 3.3-5.1 mmol/L) Chloride 107 (Ref Range: 96-108 mmol/L) 106 (Ref Range: 96-108 mmol/L) 108 (Ref Range: 96-108 mmol/L) 108 (Ref Range: 96-108 mmol/L) 108 (Ref Range: 96-108 mmol/L) Carbon Dioxide 23 (Ref Range: 22-29 mmol/L) 22 (Ref Range: 22-29 mmol/L) 18 L (Ref Range: 22-29 mmol/L) 16 L (Ref Range: 22-29 mmol/L) 15 L (Ref Range: 22-29 mmol/L) Anion Gap 16 (Ref Range: 12-20) 15 (Ref Range: 12-20) 16 (Ref Range: 12-20) 17 (Ref Range: 12-20) 18 (Ref Range: 12-20) Estimated Glomerular Filt Rate 35 29 16 8 8 Creatinine Clr Calc Pharmacy 38.2 32.5 19.7 11.1 11.1 ???Lab:SLIDE REVIEW (Order Date - 07/11/2025) (Collection Date & Time - 07/11/2025 03:56 AM)?ValueReference Range?SLIDE REVIEWVERIFIED- ???Lab:NT Pro B Type Natriuretic Pept (Order Date - 07/11/2025) (Collection Date & Time - 07/11/2025 03:56 AM)?ValueReference Range?NT Pro B Type Natriuretic Jdiz4311.4H<300 - pg/mL ???Lab:Venous Blood Gases - POC (Order Date - 07/10/2025) (Collection Date & Time - 07/10/2025 09:47 PM)?ValueReference Range?VBG pH7.367.32- 7.43 -?VBG hZS553- mmHg?VBG pO272- mmHg?VBG Base Excess-9.3 - mmol/L?VBG EFW521C02-63 - mmol/L?VBG O2 % Essbeqgnde75.0- % * Lab:PSA Free and Total * Collection Date [...] Clr Calc Pharmacy NR 50.0 NR * Lab:Urine Culture * Collection Date 05/23/2025 [...] type - J44.9 Plan: * Treatment: * Follow Up: 4 Weeks (Reason: OV) * Images: * The named appointment provid er may or may not be the originator of this progress note, and it is not deemed complete until electronically signed by the appointment provider. Sign off status: Pending * Provider: Roddy Oreilly MD Date: 10/08/2024 Generated for Hayden wiley/Shawn/Deshawnitting on: 10/08/2024 06:01 [...]
--- NOTE | 2025-08-07 15:24 | AM.OFFVISNUR ---
Intake Visit Reasons: Catheter change Allergies No Known Allergies Allergy (Verified 07/10/25 17:37) Office Procedures Bladder/Catheter Procedure Details: Patient presents to office for catheter change. 20 fr coude ennis catheter 30ml balloon with large urine bag removed, new 16fr cuode ennis catheter with 10ml balloon plug inserted. Patient tolerated exchange well. Patient to make follow up in 4 weeks with nurse for next cath change [id number] Temporary Bladder Catheter Procedure code (CPT) selection complete Assessment & Plan Assessment & Plan Orders: Orders AMB Bladder/Catheter Procedure Today Z97.8 - Presence of other specified devices Coding CPT Codes Bladder/Catheter Procedure - CPT: 96672-Nycvlm Temporary Bladder Catheter ([id number])
--- OUTSIDE RECORDS SUMMARY | 2025-08-07 18:00 | XMS_ITS | Clinical Summary ---
Author Organization 299 [facility] Address [address] [place] [address] Phone Care Team Providers Care Audiovisual Production Specialist Name Role Phone Tyler Castillo MD Primary Care Provider Allergies No known active allergies Medications polyethylene glycol (COLYTE) 240-22.72-6.72 -5.84 gram solution Drink 8 oz every 15 mins over 2 sittings as directed. Finish the entire jug. 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 07/18/2025 Lab Requisition [facility] Lab [address] [place] [phone] Ranjana Fonseca MD Encounter for other general examination 07/18/2025 Lab Requisition [facility] Lab [address] [place] [phone] Ranjana Fonseca MD Encounter for other general examination 07/17/2025 Lab Requisition [facility] Main Lab [address] [place] [phone] Ranjana Fonseca MD 07/17/2025 Lab Requisition [facility] Main Lab [address] [place] [phone] Sophia Valdes PA Encounter for other general examination 07/16/2025 Lab Requisition [facility] Main Lab [address] [place] [phone] Marina Malik MD Encounter for other general examination 07/15/2025 Lab Requisition [facility] Main Lab [address] [place] [phone] Danuta Cantu PA Encounter for other general examination from Last 3 Months Immunizations Immunization Administration [...] Years Used Date Smoking Tobacco: Former Cigarettes 1.5 Q uit: 02/03/2016 Smokeless Tobacco: Never Alcohol [...] Procedure Name Priority Date/Time Associated Diagnosis Comments CBC WITH AUTO DIFFERENTIAL Routine 07/22/2025 5:43 AM EST Encounter for other general examination BASIC METABOLIC PANEL Routine 07/22/2025 5:43 AM EST Encounter for other general examination CBC AND DIFFERENTIAL Routine 07/22/2025 5:43 AM EST Encounter for other general examination CBC WITH AUTO DIFFERENTIAL Routine 07/19/2025 6:43 AM EST 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 COMPREHENSIVE METABOLIC PANEL Routine 07/19/2025 6:43 AM EST Other retirement (current) drug therapy C-REACTIVE PROTEIN Routine 07/19/2025 6: 43 AM EST Other retirement (current) drug therapy CBC AND DIFFERENTIAL Routine 07/19/2025 6:43 AM EST Other retirement (current) drug therapy CBC WITH AUTO DIFFERENTIAL STAT 07/18/2025 11:30 AM EST Encounter for other general examination BASIC METABOLIC PANEL STAT 07/18/2025 11:30 AM EST Encounter for other general examination CBC AND DIFFERENTIAL STAT 07/18/2025 11:30 AM EST Encounter for other general examination URINALYSIS WITH REFLEX MICROSCOPIC AND CULTURE Routine 07/17/2025 5:52 PM EST Encounter for other general examination MONTALVO URINE CULTURE TUBE Routine 07/17/2025 5:52 PM EST Encounter for other general examination URINALYSIS WITH REFLEX MICROSCOPIC AND CULTURE Routine 07/17/2025 5:52 PM EST Encounter for other general examination CULTURE URINE Routine 07/17/2025 5:52 PM EST Encounter for other general examination CBC WITH AUTO DIFFERENTIAL Routine 07/17/2025 6:04 AM EST Encounter for other general examination CBC AND DIFFERENTIAL Routine 07/17/2025 6:04 AM EST Encounter for other general examination MAGNESIUM Routine 07/16/2025 9:23 AM EST Encounter for other general examination BASIC METABOLIC PANEL Routine 07/16/2025 9:23 AM EST Encounter for other general examination COMPLETE BLOOD COUNT Routine 07/16/2025 9:23 AM EST Encounter for other general examination CBC WITH AUTO DIFFERENTIAL Routine 07/15/2025 5:46 AM EST Encounter for other general examination MAGNESIUM Routine 07/15/2025 5:46 AM EST Encounter for other general examination COMPREHENSIVE METABOLIC PANEL Routine 07/15/2025 5:46 AM EST Encounter for other general examination CBC AND DIFFERENTIAL Routine 07/15/2025 5:46 AM EST Encounter for other general examination HEMOGLOBIN A1C Routine 07/15/2025 5:46 AM EST Encounter for other general examination LIPID PANEL Routine 03/05/2016 HM ABDOMINAL AORTIC ANEURYSM SCRREN Routine 12/06/2014 from Last 3 Months or Most Recently Relevant to Health Maintenance Results * (ABNORMAL) CBC auto differential (07/22/2025 5:43 AM EST) Only the most recent of5 resultswithin the time period is included. WBC 12.6(H) 4.8 - 10.8 K/mcL LAB HEMETOLOGY METHOD 07/22/2025 11:29 AM [facility] RBC 4.30(L) 4.50 - 5.50 M/mcL LAB HEMETOLOGY METHOD 07/22/2025 11:29 AM [facility] Hemoglobin 12.7(L) 13.5 - 17.5 g/dL LAB HEMETOLOGY METHOD 07/22/2025 11:29 AM [facility] Hematocrit 38.9(L) 42.0 - 54.0 % LAB HEMETOLOGY METHOD 07/22/2025 11:29 AM [facility] MCV 91.1 79.0 - 98.0 FL LAB HEMETOLOGY METHOD 07/22/2025 11:29 AM [facility] LAB MCH 29.7 27.0 - 32.0 pcg LAB HEMETOLOGY METHOD 07/22/2025 11:29 AM [facility] LAB MCHC 32.6 32.0 - 37.0 g/dL LAB HEMETOLOGY METHOD 07/22/2025 11:29 AM [facility] RDW 14.5 11.0 - 15.0 % LAB HEMETOLOGY METHOD 07/22/2025 11:29 AM [facility] Platelets 392 130 - 400 K/mcL LAB HEMETOLOGY METHOD 07/22/2025 11:29 AM [facility] MPV 8.9 7.0 - 11.0 FL LAB HEMETOLOGY METHOD 07/22/2025 11:29 AM [facility] NRBC 0.0 <1.0 % LAB HEMETOLOGY METHOD 07/22/2025 11:29 AM [facility] NRBC Absolute 0.00 <0.10 K/mcL LAB HEMETOLOGY METHOD 07/22/2025 11:29 AM [facility] Neutrophils Relative 77.5 % LAB HEMETOLOGY METHOD 07/22/2025 11:29 AM [facility] Lymphocytes Relative 9.9 % LAB HEMETOLOGY METHOD 07/22/2025 11:29 AM [facility] Monocytes Relative 10.3 % LAB HEMETOLOGY METHOD 07/22/2025 11:29 AM [facility] Eosinophils Relative 1.1 % LAB HEMETOLOGY METHOD 07/22/2025 11:29 AM [facility] Basophils Relative 0.6 % LAB HEMETOLOGY METHOD 07/22/2025 11:29 AM [facility] Immature Granulocytes Relative 0.6 % LAB HEMETOLOGY METHOD 07/22/2025 11:29 AM [facility] Neutrophils Absolute 9.72(H) 1.50 - 7.00 K/mcL LAB HEMETOLOGY METHOD 07/22/2025 11:29 AM EST [facility] Lymphocytes Absolute 1.24 1.00 - 5.00 K/[facility] LAB HEMETOLOGY METHOD 07/22/2025 11:29 AM [facility] Monocytes Absolute 1.29(H) 0.20 - 1.00 K/mcL LAB HEMETOLOGY METHOD 07/22/2025 11:29 AM EST [facility] Eosinophils Absolute 0.14 0.00 - 0.50 K/[facility] LAB HEMETOLOGY METHOD 07/22/2025 11:29 AM [facility] Basophils Absolute 0.08 0.00 - 0.20 K/[facility] LAB HEMETOLOGY METHOD 07/22/2025 11:29 AM [facility] Immature Granulocytes Absolute 0.08(H) 0.00 - 0.03 K/[facility] LAB HEMETOLOGY METHOD 07/22/2025 11:29 AM [facility] Blood Venous blood specimen / Unknown Venipuncture / Unknown 07/22/2025 5:43 AM EST 07/22/2025 10:31 AM EST Sally AGUIRRE LAB BLOOD ORDERABLES Final Resul t [facility] [address] [place] [address], * Basic metabolic panel (07/22/2025 5:43 AM EST) Only the most recent of3 resultswithin the time period is included. Sodium 138 133 - 145 mmol/L LAB CHEMISTRY METHOD 07/22/2025 12:49 PM [facility] Potassium 4.6 3.5 - 5.5 mmol/L LAB CHEMISTRY METHOD 07/22/2025 12:49 PM [facility] Chloride 105 96 - 110 mmol/L LAB CHEMISTRY METHOD 07/22/2025 12:49 PM [facility] CO2 26 21 - 32 mmol/L LAB CHEMISTRY METHOD 07/22/2025 12:49 PM [facility] Anion Gap 7 3 - 11 LAB CHEMISTRY METHOD 07/22/2025 12:49 PM [facility] Glucose 73 70 - 100 mg/dL LAB CHEMISTRY METHOD 07/22/2025 12:49 PM [facility] BUN 24 5 - 25 mg/dL LAB CHEMISTRY METHOD 07/22/2025 12:49 PM [facility] Creatinine 1.11 0.70 - 1.30 mg/dL LAB CHEMISTRY METHOD 07/22/2025 12:49 PM [facility] eGFR 69 >=60 mL/min/1. 73m2 LAB CHEMISTRY METHOD 07/22/2025 12:49 PM [facility] Comment:Calculation based on the Chronic Kidney Disease Epidemiology Collaboration (CKD-EPI) equation refit without adjustment for race. BUN/Creatinine Ratio 21.6 LAB CHEMISTRY METHOD 07/22/2025 12:49 PM [facility] Calcium 8.5 8.5 - 10.5 mg/dL LAB CHEMISTRY METHOD 07/22/2025 12:49 PM [facility] Blood Venous blood specimen / Unknown Venipuncture / Unknown 07/22/2025 5:43 AM EST 07/22/2025 10:31 AM EST Sally AGUIRRE LAB BLOOD ORDERABLES Final Resul t [facility] [address] [place] [address], * (ABNORMAL) C-reactive protein (07/19/2025 6:43 AM EST) C-Reactive Protein 2.13(H) <=0.50 mg/dL LAB CHEMISTRY METHOD 07/19/2025 11:58 AM [facility] Blood Venous blood specimen / Unknown Venipuncture / Unknown 07/19/2025 6:43 AM EST 07/19/2025 11:10 AM EST us Tyler Gabriel MD LAB BLOOD ORDERABLES Final Resu lt [facility] [address] [place] [address], [place] [phone] * (ABNORMAL) Comprehensive metabolic panel (07/19/2025 6:43 AM EST) Only the most recent of2 resultswithin the time period is included. Sodium 139 133 - 145 mmol/L LAB CHEMISTRY METHOD 07/19/2025 11:59 AM [facility] Potassium 4.3 3.5 - 5.5 mmol/L LAB CHEMISTRY METHOD 07/19/2025 11:59 AM [facility] Chloride 104 96 - 110 mmol/L LAB CHEMISTRY METHOD 07/19/2025 11:59 AM [facility] CO2 27 21 - 32 mmol/L LAB CHEMISTRY METHOD 07/19/2025 11:59 AM [facility] Anion Gap 8 3 - 11 LAB CHEMISTRY METHOD 07/19/2025 11:59 AM [facility] Glucose 91 70 - 100 mg/dL LAB CHEMISTRY METHOD 07/19/2025 11:59 AM [facility] BUN 22 5 - 25 mg/dL LAB CHEMISTRY METHOD 07/19/2025 11:59 AM [facility] Creatinine 1.18 0.70 - 1.30 mg/dL LAB CHEMISTRY METHOD 07/19/2025 11:59 AM [facility] eGFR 64 >=60 mL/min/1. 73m2 LAB CHEMISTRY METHOD 07/19/2025 11:59 AM [facility] Comment:Calculation based on the Chronic Kidney Disease Epidemiology Collaboration (CKD-EPI) equation refit without adjustment for race. BUN/Creatinine Ratio 18.6 LAB CHEMISTRY METHOD 07/19/2025 11:59 AM [facility] Calcium 8.6 8.5 - 10.5 mg/dL LAB CHEMISTRY METHOD 07/19/2025 11:59 AM [facility] AST (SGOT) 11 10 - 42 unit/L LAB CHEMISTRY METHOD 07/19/2025 11:59 AM [facility] ALT (SGPT) 28 10 - 60 unit/L LAB CHEMISTRY METHOD 07/19/2025 11:59 AM [facility] Alkaline Phosphatase 99 42 - 121 unit/L LAB CHEMISTRY METHOD 07/19/2025 11:59 AM [facility] Total Protein 6.7 6.0 - 8.0 g/dL LAB CHEMISTRY METHOD 07/19/2025 11:59 AM [facility] Albumin 2.6(L) 3.2 - 5.0 g/dL LAB CHEMISTRY METHOD 07/19/2025 11:59 AM [facility] Total Bilirubin 0.2 0.0 - 1.4 mg/dL LAB CHEMISTRY METHOD 07/19/2025 11:59 AM [facility] Blood Venous blood specimen / Unknown Venipuncture / Unknown 07/19/2025 6:43 AM EST 07/19/2025 11:10 AM EST us Tyler Gabriel MD LAB BLOOD ORDERABLES Final Resu lt [facility] [address] [place] [address], [place] [phone] * (ABNORMAL) Urinalysis with reflex microscopic and culture (07/17/2025 5:52 PM EST) Specific [place] Urine 1.016 1.003 - 1.030 LAB URINALYSIS - AUTOMATED METHOD 07/18/2025 6:59 AM [facility] pH, Urine 6.0 5.0 - 8.0 pH LAB URINALYSIS - AUTOMATED METHOD 07/18/2025 6:59 AM [facility] Leukocytes, Urine Moderate(A) Negative LAB URINALYSIS - AUTOMATED METHOD 07/18/2025 6:59 AM [facility] Nitrite, Urine Negative Negative LAB URINALYSIS - AUTOMATED METHOD 07/18/2025 6:59 AM [facility] Protein, Urine 100(A) <=Trace mg/dL LAB URINALYSIS - AUTOMATED METHOD 07/18/2025 6:59 AM [facility] Glucose, Urine Negative Negative mg/dL LAB URINALYSIS - AUTOMATED METHOD 07/18/2025 6:59 AM [facility] Ketones, Urine Negative Negative mg/dL LAB URINALYSIS - AUTOMATED METHOD 07/18/2025 6:59 AM [facility] Urobilinogen , Urine 0.2 0.2 - 1.0 mg/dL LAB URINALYSIS - AUTOMATED METHOD 07/18/2025 6:59 AM [facility] Bilirubin, Urine Negative Negative LAB URINALYSIS - AUTOMATED METHOD 07/18/2025 6:59 AM [facility] Blood, Urine Trace(A) Negative LAB URINALYSIS - AUTOMATED METHOD 07/18/2025 6:59 AM [facility] RBC, Urine 10(H) 0 - 4 /HPF 07/18/2025 6:59 AM [facility] WBC, Urine >100(H) 0 - 4 /HPF 07/18/2025 6:59 AM [facility] Squamous Epithelial, Urine 10 0 - 60 /LPF 07/18/2025 6:59 AM [facility] Bacteria, Urine Many(A) Negative /HPF 07/18/2025 6:59 AM [facility] Hyaline Casts, Urine 3 0 - 3 /LPF 07/18/2025 6:59 AM EST [facility] Urine Urine specimen obtained by clean catch procedure / Unknown Non-blood Collection / Unknown 07/17/2025 5:52 PM EST 07/18/2025 6:43 AM EST us Ranjana Fonseca MD LAB URINE ORDERABLES Final Resu lt Performing Organization Address City/[facility]/ZIP Co de Phone Number [facility] [address] [place] [address], [place] [phone] * [place] urine culture tube (07/17/2025 5:52 PM EST) Extra Tube Hold for add-ons. 07/18/2025 8:01 AM EST [facility] Comment:Auto resulted. Urine Urine specimen obtained by clean catch procedure / Unknown Non-blood Collection / Unknown 07/17/2025 5:52 PM EST 07/18/2025 6:43 AM EST us Ranjana Fonseca MD LAB URINE ORDERABLES Final Resu lt Performing Organization Address [facility] Co de Phone Number [facility] [address] [place] [address], [place] [phone] * Culture urine (07/17/2025 5:52 PM EST) Culture, Urine No growth 07/19/2025 10:05 AM EST [facility] Urine Urine specimen obtained by clean catch procedure / Unknown Non-blood Collection / Unknown 07/17/2025 5:52 PM EST 07/18/2025 6:59 AM EST us Ranjana Fonseca MD LAB MICROBIOLOGY - GENERAL ORDE RABLES Final Result Performing Organization Address City/[facility]/ZIP Co de Phone Number [facility] [address] [place] [address], [place] [phone] * (ABNORMAL) Complete blood count (07/16/2025 9:23 AM EST) [facility] WBC 20.2(H) 4.8 - 10.8 K/mcL LAB HEMETOLOGY METHOD 07/16/2025 10:45 AM [facility] RBC 4.40(L) 4.50 - 5.50 M/mcL LAB HEMETOLOGY METHOD 07/16/2025 10:45 AM [facility] Hemoglobin 13.1(L) 13.5 - 17.5 g/dL LAB HEMETOLOGY METHOD 07/16/2025 10:45 AM [facility] Hematocrit 40.7(L) 42.0 - 54.0 % LAB HEMETOLOGY METHOD 07/16/2025 10:45 AM [facility] MCV 91.7 79.0 - 98.0 FL LAB HEMETOLOGY METHOD 07/16/2025 10:45 AM [facility] MCH 29.5 27.0 - 32.0 pcg LAB HEMETOLOGY METHOD 07/16/2025 10:45 AM [facility] MCHC 32.2 32.0 - 37.0 g/dL LAB HEMETOLOGY METHOD 07/16/2025 10:45 AM [facility] RDW 14.6 11.0 - 15.0 % LAB HEMETOLOGY METHOD 07/16/2025 10:45 AM [facility] Platelets 376 130 - 400 K/mcL LAB HEMETOLOGY METHOD 07/16/2025 10:45 AM [facility] MPV 8.9 7.0 - 11.0 FL LAB HEMETOLOGY METHOD 07/16/2025 10:45 AM [facility] NRBC 0.0 <1.0 % LAB HEMETOLOGY METHOD 07/16/2025 10:45 AM [facility] NRBC Absolute 0.00 <0.10 K/mcL LAB HEMETOLOGY METHOD 07/16/2025 10:45 AM EST [facility] Blood Venous blood specimen / Unknown Venipuncture / Unknown 07/16/2025 9:23 AM EST 07/16/2025 10:04 AM EST Marina Malik MD LAB BLOOD ORDERABLES Fin al Result Performing Organization Address City/[facility]/ZIP Co de Phone Number [facility] [address] [place] [address], [place] [phone] * (ABNORMAL) Magnesium (07/16/2025 9:23 AM EST) Only the most recent of2 resultswithin the time period is included. Magnesium 1.7(L) 1.9 - 2.6 mg/dL LAB CHEMISTRY METHOD 07/16/2025 11:32 AM EST [facility] Blood Venous blood specimen / Unknown Venipuncture / Unknown 07/16/2025 9:23 AM EST 07/16/2025 10:04 AM EST Marina Malik MD LAB BLOOD ORDERABLES Fin al Result Performing Organization Address City/[facility]/ZIP Co de Phone Number [facility] [address] [place] [address], [place] [phone] * Hemoglobin A1c (07/15/2025 5:46 AM EST) Hemoglobin A1C 5.4 <6.5 % LAB CHEMISTRY METHOD 07/15/2025 4:35 PM EST [facility] Mean Bld Glu Estim. 108 mg/dL LAB CHEMISTRY METHOD 07/15/2025 4:35 PM EST [facility] Blood Venous blood specimen / Unknown Venipuncture / Unknown 07/15/2025 5:46 AM EST 07/15/2025 10:41 AM EST Danuta AGUIRRE LAB BLOOD ORDERABLES Final Resu lt [facility] [address] [place] [address], * (ABNORMAL) Lipid panel (03/05/2016) LDL/HDL Ratio 4 0 - 4 Triglycerides 140 0 - 150 mg/dL Cholesterol 188 0 - 200 mg/dL HDL 43 >=40 mg/dL LDL Cholesterol 117(A) 0 - 100 mg/dL Blood Venous blood specimen / Unknown Historical Provider LAB BLOOD ORDERABLES Marilou l Result * Abdominal Aortic Aneurysm Screen (12/06/2014) Pathologist [facility] Abdominal Aortic Aneurysm (AAA) Screening Abstracted Anatomical Region Laterality Modality Other Historical Provider HEALTH MAINTENANCE Final Result from Last 3 Months or Most Recently Relevant to Health Maintenance Insurance MEDICAID - [place] MEDICARE Care Teams Audiovisual Production Specialist Relationship Specialty Start Date End Date Tyler Castillo MD [address] [place] [address] PCP - General Internal Medicine 10/20/15
--- OUTSIDE RECORDS SUMMARY | 2025-08-07 18:01 | XMS_ITS | Encounter Summary ---
Author Organization [facility] Address [address] [place] [address] Care Team Providers Care Adapted Physical Education Aide Name Role Phone Tyler Castillo MD Primary Care Provider [phone] Encounter Details Date Type Department Care Team (Late st Contact Info) Description 07/15/2025 Lab Requisition [facility] - Main Lab [address] [facility] [place] [address] Danuta Cantu PA [address] [place] [phone] Encounter for other general examination Social History Tobacco Use Types Packs/Day Years [...] Diagnosis Comments CBC WITH AUTO DIFFERENTIAL Routine 07/15/2025 5:46 AM EST Encounter for other general examination CBC AND DIFFERENTIAL Routine 07/15/2025 5:46 AM EST Encounter for other general examination MAGNESIUM Routine 07/15/2025 5:46 AM EST Encounter for other general examination HEMOGLOBIN A1C Routine 07/15/2025 5:46 AM EST Encounter for other general examination COMPREHENSIVE METABOLIC PANEL Routine 07/15/2025 5:46 AM EST Encounter for other general examination documented in this encounter Results * (ABNORMAL) CBC auto differential (07/15/2025 5:46 AM EST) WBC 17.3(H) 4.8 - 10.8 K/mcL LAB HEMETOLOGY METHOD 07/15/2025 2:[address] [facility] RBC 4.40(L) 4.50 - 5.50 M/mcL LAB HEMETOLOGY METHOD 07/15/2025 2:[address] [facility] Hemoglobin 12.9(L) 13.5 - 17.5 g/dL LAB HEMETOLOGY METHOD 07/15/2025 2:[address] [facility] Hematocrit 41.1(L) 42.0 - 54.0 % LAB HEMETOLOGY METHOD 07/15/2025 2:[address] [facility] MCV 92.6 79.0 - 98.0 FL LAB HEMETOLOGY METHOD 07/15/2025 2:[address] [facility] MCH 29.1 27.0 - 32.0 pcg LAB HEMETOLOGY METHOD 07/15/2025 2:[address] [facility] MCHC 31.4(L) 32.0 - 37.0 g/dL LAB HEMETOLOGY METHOD 07/15/2025 2:[address] [facility] RDW 14.8 11.0 - 15.0 % LAB HEMETOLOGY METHOD 07/15/2025 2:[address] [facility] Platelets 378 130 - 400 K/mcL LAB HEMETOLOGY METHOD 07/15/2025 2:[address] [facility] MPV 9.0 7.0 - 11.0 FL LAB HEMETOLOGY METHOD 07/15/2025 2:[address] [facility] NRBC 0.0 <1.0 % LAB HEMETOLOGY METHOD 07/15/2025 2:[address] [facility] NRBC Absolute 0.00 <0.10 K/mcL LAB HEMETOLOGY METHOD 07/15/2025 2:[address] [facility] Neutrophils Relative 75.9 % LAB HEMETOLOGY METHOD 07/15/2025 2:[address] [facility] Lymphocytes Relative 11.5 % LAB HEMETOLOGY METHOD 07/15/2025 2:[address] [facility] Monocytes Relative 4.7 % LAB HEMETOLOGY METHOD 07/15/2025 2:[address] [facility] Eosinophils Relative 2.5 % LAB HEMETOLOGY METHOD 07/15/2025 2:[address] [facility] Basophils Relative 0.8 % LAB HEMETOLOGY METHOD 07/15/2025 2:[address] [facility] Immature Granulocytes Relative 4.6 % LAB HEMETOLOGY METHOD 07/15/2025 2:[address] [facility] Neutrophils Absolute 13.11(H) 1.50 - 7.00 K/mcL LAB HEMETOLOGY METHOD 07/15/2025 2:[address] [facility] Lymphocytes Absolute 1.98 1.00 - 5.00 K/mcL LAB HEMETOLOGY METHOD 07/15/2025 2:[address] [facility] Monocytes Absolute 0.81 0.20 - 1.00 K/mcL LAB HEMETOLOGY METHOD 07/15/2025 2:[address] [facility] Eosinophils Absolute 0.43 0.00 - 0.50 K/mcL LAB HEMETOLOGY METHOD 07/15/2025 2:[address] [facility] Basophils Absolute 0.14 0.00 - 0.20 K/mcL LAB HEMETOLOGY METHOD 07/15/2025 2:[address] [facility] Immature Granulocytes Absolute 0.80(H) 0.00 - 0.03 K/mcL LAB HEMETOLOGY METHOD 07/15/2025 2:17 PM EST [facility] Blood Venous blood specimen / Unknown Venipuncture / Unknown 07/15/2025 5:46 AM EST 07/15/2025 10:41 AM EST Danuta AGUIRRE LAB BLOOD ORDERABLES Final Resu lt Performing Organization Address City/[facility]/ZIP Co de Phone Number [facility] [address] [place] [address], [place] [phone] * (ABNORMAL) Magnesium (07/15/2025 5:46 AM EST) Pathologist [facility] Magnesium 1.6(L) 1.9 - 2.6 mg/dL LAB CHEMISTRY METHOD 07/15/2025 3:[address] [facility] Blood Venous blood specimen / Unknown Venipuncture / Unknown 07/15/2025 5:46 AM EST 07/15/2025 10:41 AM EST Danuta AGUIRRE LAB BLOOD ORDERABLES Final Resu lt Performing Organization Address City/[facility]/ZIP Co de Phone Number [facility] [address] [place] [address], [place] [phone] * (ABNORMAL) Comprehensive metabolic panel (07/15/2025 5:46 AM EST) Pathologist [facility] Sodium 140 133 - 145 mmol/L LAB CHEMISTRY METHOD 07/15/2025 3:[address] [facility] Potassium 4.1 3.5 - 5.5 mmol/L LAB CHEMISTRY METHOD 07/15/2025 3:[address] [facility] Chloride 105 96 - 110 mmol/L LAB CHEMISTRY METHOD 07/15/2025 3:[address] [facility] CO2 25 21 - 32 mmol/L LAB CHEMISTRY METHOD 07/15/2025 3:[address] [facility] Anion Gap 10 3 - 11 LAB CHEMISTRY METHOD 07/15/2025 3:[address] [facility] Glucose 116(H) 70 - 100 mg/dL LAB CHEMISTRY METHOD 07/15/2025 3:[address] [facility] BUN 37(H) 5 - 25 mg/dL LAB CHEMISTRY METHOD 07/15/2025 3:[address] [facility] Creatinine 1.47(H) 0.70 - 1.30 mg/dL LAB CHEMISTRY METHOD 07/15/2025 3:[address] [facility] eGFR 49(L) >=60 mL/min/1. 73m2 LAB CHEMISTRY METHOD 07/15/2025 3:[address] [facility] Comment:Calculation based on the Chronic Kidney Disease Epidemiology Collaboration (CKD-EPI) equation refit without adjustment for race. BUN/Creatinine Ratio 25.2 LAB CHEMISTRY METHOD 07/15/2025 3:[address] [facility] Calcium 8.2(L) 8.5 - 10.5 mg/dL LAB CHEMISTRY METHOD 07/15/2025 3:[address] [facility] AST (SGOT) 18 10 - 42 unit/L LAB CHEMISTRY METHOD 07/15/2025 3:[address] [facility] ALT (SGPT) 35 10 - 60 unit/L LAB CHEMISTRY METHOD 07/15/2025 3:[address] [facility] Alkaline Phosphatase 96 42 - 121 unit/L LAB CHEMISTRY METHOD 07/15/2025 3:[address] [facility] Total Protein 6.5 6.0 - 8.0 g/dL LAB CHEMISTRY METHOD 07/15/2025 3:[address] [facility] Albumin 2.5(L) 3.2 - 5.0 g/dL LAB CHEMISTRY METHOD 07/15/2025 3:[address] [facility] Total Bilirubin 0.3 0.0 - 1.4 mg/dL LAB CHEMISTRY METHOD 07/15/2025 3:[address] [facility] Blood Venous blood specimen / Unknown Venipuncture / Unknown 07/15/2025 5:46 AM EST 07/15/2025 10:41 AM EST Danuta AGUIRRE LAB BLOOD ORDERABLES Final Resu lt Performing Organization Address City/[facility]/ZIP Co de Phone Number [facility] [address] [place] [address], [place] [phone] * Hemoglobin A1c (07/15/2025 5:46 AM EST) Hemoglobin A1C 5.4 <6.5 % LAB CHEMISTRY METHOD 07/15/2025 4:35 PM EST [facility] Mean Bld Glu Estim. 108 mg/dL LAB CHEMISTRY METHOD 07/15/2025 4:35 PM EST [facility] Blood Venous blood specimen / Unknown Venipuncture / Unknown 07/15/2025 5:46 AM EST 07/15/2025 10:41 AM EST Danuta AGUIRRE LAB BLOOD ORDERABLES Final Resu lt Performing Organization Address City/[facility]/ZIP Co de Phone Number [facility] [address] [place] [address], [place] [phone] documented in this encounter Visit Diagnoses Diagnosis Encounter for other general examination documented in this encounter Care Teams Adapted Physical Education Aide Relationship Specialty Start Date End Date Tyler Castillo MD [address] [place] [id number] PCP - General Internal Medicine 10/20/15 documented as of this encounter
--- OUTSIDE RECORDS SUMMARY | 2025-08-07 18:01 | XMS_ITS | Encounter Summary ---
Author Organization [facility] Address [address] [place] [address] Care Team Providers Care Water Trainer Name Role Phone Tyler Castillo MD Primary Care Provider [phone] Encounter Details Date Type Department Care Team (Late st Contact Info) Description 04/23/2025 Lab Requisition [facility] - Main Lab [address] [facility] [place] [address] Scott Starr MD [address] [place], [place] [phone] Anemia, unspecified; Acute kidney failure, unspecified (CMS/HCC [...] Starr MD LAB BLOOD ORDERABLES Final Result [facility] [address] [place] [address], [place] [phone] * (ABNORMAL) Complete blood count (04/23/2025 7:12 AM EDT) [facility] WBC 8.9 4.8 - 10.8 K/mcL LAB HEMETOLOGY METHOD 04/23/2025 9:48 AM EDT [facility] RBC 4.10(L) 4.50 - 5.50 M/mcL LAB HEMETOLOGY METHOD 04/23/2025 9:48 AM EDT [facility] Hemoglobin 12.0(L) 13.5 - 17.5 g/dL LAB HEMETOLOGY METHOD 04/23/2025 9:48 AM EDT [facility] Hematocrit 37.6(L) 42.0 - 54.0 % LAB HEMETOLOGY METHOD [facility]25 [facility] MCV 91.0 79.0 - 98.0 FL LAB HEMETOLOGY METHOD 04/23/2025 9[facility] MCH 29.1 27.0 - 32.0 pcg LAB HEMETOLOGY METHOD 04/23/2025 9:48 AM [facility] MCHC 31.9(L) 32.0 - 37.0 g/dL LAB HEMETOLOGY METHOD 04/23/2025 9:48 AM [facility] RDW 14.4 11.0 - 15.0 % LAB HEMETOLOGY METHOD 04/23/2025 9:48 [facility] Platelets 437(H) 130 - 400 K/mcL LAB HEMETOLOGY METHOD 04/23/2025 9:48 AM EDT [facility] MPV 8.8 7.0 - 11.0 FL LAB HEMETOLOGY METHOD 04/23/2025 9:48 AM EDT [facility] NRBC 0.0 <1.0 % LAB HEMETOLOGY METHOD 04/23/2025 9:48 AM EDT [facility] NRBC Absolute 0.00 <0.10 K/mcL LAB HEMETOLOGY METHOD 04/23/2025 9:48 AM EDT [facility] Blood Venous blood specimen / Unknown Venipuncture / Unknown 04/23/2025 7:12 AM EDT 04/23/2025 9:11 AM EDT us Scott Starr MD LAB BLOOD ORDERABLES Final Result [facility] [address] [place] [address], documented in this encounter Visit Diagnoses Diagnosis Anemia, unspecified Acute kidney failure, unspecified (CMS/HCC V24) Acute kidney failure, unspecified documented in this encounter Care Teams Water Trainer Relationship Specialty Start Date End Date Tyler Castillo MD [address] [place] [address] PCP - General Internal Medicine 10/20/15 documented as of this encounter
--- OUTSIDE RECORDS SUMMARY | 2025-08-07 18:01 | XMS_ITS | Encounter Summary ---
Author Organization [facility] Address [address] [place] [address] Care Team Providers Care Dewatering Filtering Supervisor Name Role Phone Tyler Castillo MD Primary Care Provider [phone] Encounter Details Date Type Department Care Team (Late st Contact Info) Description 04/07/2025 Lab Requisition [facility] - Main Lab 299 [facility] [place] [address] Scott Starr MD [address] [place], [place] [phone] Painful micturition, unspecified; Frequency of micturition; Hematuria, [...] Pseudomonas aeruginosa(A) MIRIAM 04/10/2025 7:34 AM EDT [facility] Comment: This is an edited result. Previous organism was Gram negative bacilli on 04/08/2025 at 0830 EDT. Culture, Urine 10,000-49,000 CFU/mL Citrobacter freundii(A) MIRIAM 04/10/2025 7:34 AM EDT [facility] Comment: The organism value for this result has been updated. These results have been appended to the previously preliminary verified report. This is an edited result. Previous organism was Gram negative bacilli on 04/09/2025 at 0938 EDT. Culture, Urine 10,000-49,000 CFU/mL Enterococcus faecalis(A) MIRIAM 04/10/2025 7:34 AM EDT [facility] Comment: The organism value for [...] LAB MICROBIOLOGY - GENERAL ORDERABLES Final Result [facility] [address] [place] [address], * (ABNORMAL) Urinalysis with reflex microscopic and culture (04/07/2025 12:00 AM EDT) Specific [place] Urine 1.015 1.003 - 1.030 LAB URINALYSIS - AUTOMATED METHOD 04/07/2025 10:07 AM EDT [facility] pH, Urine 6.0 5.0 - 8.0 pH LAB URINALYSIS - AUTOMATED METHOD 04/07/2025 10:07 AM EDT [facility] Leukocytes, Urine Large(A) Negative LAB URINALYSIS - AUTOMATED METHOD 04/07/2025 10:07 AM EDT [facility] Nitrite, Urine Negative Negative LAB URINALYSIS - AUTOMATED METHOD 04/07/2025 10:07 AM [facility] Protein, Urine 300(A) <=Trace mg/dL LAB URINALYSIS - AUTOMATED METHOD 04/07/2025 10:07 AM [facility] Glucose, Urine Negative Negative mg/dL LAB URINALYSIS - AUTOMATED METHOD 04/07/2025 10:07 AM [facility] Ketones, Urine Negative Negative mg/dL LAB URINALYSIS - AUTOMATED METHOD 04/07/2025 10:07 AM [facility] Urobilinogen , Urine 0.2 0.2 - 1.0 mg/dL LAB URINALYSIS - AUTOMATED METHOD 04/07/2025 10:07 AM [facility] Bilirubin, Urine Negative Negative LAB URINALYSIS - AUTOMATED METHOD 04/07/2025 10:07 AM [facility] Blood, Urine Large(A) Negative LAB URINALYSIS - AUTOMATED METHOD 04/07/2025 10:07 AM [facility] RBC, Urine 508.8(H) 0 - 4 /HPF LAB URINALYSIS - AUTOMATED METHOD 04/07/2025 10:07 AM [facility] WBC, Urine >4,000(H) 0 - 4 /HPF LAB URINALYSIS - AUTOMATED METHOD 04/07/2025 10:07 AM [facility] Squamous Epithelial, Urine 20 0 - 60 /LPF LAB URINALYSIS - AUTOMATED METHOD 04/07/2025 10:07 AM [facility] Bacteria, Urine Many(A) Negative /HPF LAB URINALYSIS - AUTOMATED METHOD 04/07/2025 10:07 AM [facility] Hyaline Casts, Urine 0.2 0 - 3 /LPF LAB URINALYSIS - AUTOMATED METHOD 04/07/2025 10:07 AM [facility] Urine Urine specimen obtained by clean catch procedure / Unknown 04/07/2025 04/07/2025 9:02 AM EDT us Scott Starr MD LAB URINE ORDERABLES Final Result Performing Organization Address [facility]/ZIP Co de Phone Number [facility] [address] [place] [address], [place] [phone] * [place] urine culture tube (04/07/2025 12:00 AM EDT) Extra Tube Hold for add-ons. 04/07/2025 11:01 AM EDT [facility] Comment:Auto resulted. Urine Urine specimen obtained by clean catch procedure / Unknown 04/07/2025 04/07/2025 9:02 AM EDT us Scott Starr MD LAB URINE ORDERABLES Final Result Performing Organization Address [facility] de Phone Number [facility] [address] [place] [address], [place] [phone] documented in this encounter Visit Diagnoses Diagnosis Painful micturition, unspecified Frequency of micturition Urinary frequency Hematuria, unspecified documented in this encounter Care Teams Dewatering Filtering Supervisor Relationship Specialty Start Date End Date Tyler Castillo MD [address] [place] [address] PCP - General Internal Medicine 10/20/15 documented as of this encounter
--- OUTSIDE RECORDS SUMMARY | 2025-08-07 18:01 | XMS_ITS | Encounter Summary ---
Author Organization [facility] Address [address] [place] [address] Care Team Providers Care Terra Cotta Roofer Name Role Phone Tyler Castillo MD Primary Care Provider [phone] Encounter Details Date Type Department Care Team (Late st Contact Info) Description 04/15/2025 Lab Requisition [facility] - Main Lab [address] [facility] [place] [address] Scott Starr MD [address] [place], [place] [phone] Benign prostatic hyperplasia without lower urinary tract [...] mmol/L LAB CHEMISTRY METHOD 04/16/2025 12:49 PM [facility] Potassium 4.4 3.5 - 5.5 mmol/L LAB CHEMISTRY METHOD 04/16/2025 12:49 PM [facility] Chloride 105 96 - 110 mmol/L LAB CHEMISTRY METHOD 04/16/2025 12:49 PM [facility] CO2 29 21 - 32 mmol/L LAB CHEMISTRY METHOD 04/16/2025 12:49 PM [facility] Anion Gap 5 3 - 11 LAB CHEMISTRY METHOD 04/16/2025 12:49 PM [facility] Glucose 85 70 - 100 mg/dL LAB CHEMISTRY METHOD 04/16/2025 12:49 PM [facility] BUN 21 5 - 25 mg/dL LAB CHEMISTRY METHOD 04/16/2025 12:49 PM [facility] Creatinine 1.10 0.70 - 1.30 mg/dL LAB CHEMISTRY METHOD 04/16/2025 12:49 PM [facility] eGFR 70 >=60 mL/min/1. 73m2 LAB CHEMISTRY METHOD 04/16/2025 12:49 PM [facility] Comment:Calculation based on the Chronic Kidney Disease Epidemiology Collaboration (CKD-EPI) equation refit without adjustment for race. BUN/Creatinine Ratio 19.1 LAB CHEMISTRY METHOD 04/16/2025 12:49 PM [facility] Calcium 8.5 8.5 - 10.5 mg/dL LAB CHEMISTRY METHOD 04/16/2025 12:49 PM [facility] AST (SGOT) 19 10 - 42 unit/L LAB CHEMISTRY METHOD 04/16/2025 12:49 PM [facility] ALT (SGPT) 29 10 - 60 unit/L LAB CHEMISTRY METHOD 04/16/2025 12:49 PM [facility] Alkaline Phosphatase 78 42 - 121 unit/L LAB CHEMISTRY METHOD 04/16/2025 12:49 PM [facility] Total Protein 6.6 6.0 - 8.0 g/dL LAB CHEMISTRY METHOD 04/16/2025 12:49 PM EDT [facility] Albumin 2.5(L) 3.2 - 5.0 g/dL LAB CHEMISTRY METHOD 04/16/2025 12:49 PM EDT [facility] Total Bilirubin 0.3 0.0 - 1.4 mg/dL LAB CHEMISTRY METHOD 04/16/2025 12:49 PM EDT [facility] Blood Venous blood specimen / Unknown Venipuncture / Unknown 04/16/2025 7:09 AM EDT 04/16/2025 8:53 AM EDT Scott Starr MD LAB BLOOD ORDERABLES Final Result [facility] [address] [place] [address], * (ABNORMAL) Complete blood count (04/16/2025 7:09 AM EDT) WBC 13.3(H) 4.8 - 10.8 K/mcL LAB HEMETOLOGY METHOD 04/16/2025 9:35 AM [facility] RBC 4.10(L) 4.50 - 5.50 M/mcL LAB HEMETOLOGY METHOD 04/16/2025 9:35 AM EDT [facility] Hemoglobin 12.0(L) 13.5 - 17.5 g/dL LAB HEMETOLOGY METHOD 04/16/2025 9:35 AM T [facility] Hematocrit 38.2(L) 42.0 - 54.0 % LAB HEMETOLOGY METHOD 04/16/2025 9:35 AM [facility] MCV 92.5 79.0 - 98.0 FL LAB HEMETOLOGY METHOD 04/16/2025 9:35 AM EDT [facility] MCH 29.1 27.0 - 32.0 pcg LAB HEMETOLOGY METHOD 04/16/2025 9:35 AM EDT [facility] MCHC 31.4(L) 32.0 - 37.0 g/dL LAB HEMETOLOGY METHOD 04/16/2025 9:35 AM EDT [facility] RDW 14.0 11.0 - 15.0 % LAB HEMETOLOGY METHOD 04/16/2025 9:35 AM EDT [facility] Platelets 488(H) 130 - 400 K/mcL LAB HEMETOLOGY METHOD 04/16/2025 9:35 AM EDT [facility] MPV 8.7 7.0 - 11.0 FL LAB HEMETOLOGY METHOD 04/16/2025 9:35 AM EDT [facility] NRBC 0.0 <1.0 % LAB HEMETOLOGY METHOD 04/16/2025 9:35 AM EDT [facility] NRBC Absolute 0.00 <0.10 K/mcL LAB HEMETOLOGY METHOD 04/16/2025 9:35 AM EDT [facility] Blood Venous blood specimen / Unknown Venipuncture / Unknown 04/16/2025 7:09 AM EDT 04/16/2025 8:53 AM EDT Scott Starr MD LAB BLOOD ORDERABLES Final Result [facility] [address] [place] [address], documented in this encounter Visit Diagnoses Diagnosis Benign prostatic hyperplasia without lower urinary tract symptoms Urinary tract infection, site not specified documented in this encounter Care Teams Terra Cotta Roofer Relationship Specialty Start Date End Date Tyler Castillo MD [address] [place] [address] PCP - General Internal Medicine 10/20/15 documented as of this encounter
--- OUTSIDE RECORDS SUMMARY | 2025-08-07 18:01 | XMS_ITS | Encounter Summary ---
Author Organization [facility] Address [address] [place] [address] Care Team Providers Care Stud Driver Name Role Phone Tyler Castillo MD Primary Care Provider [phone] Encounter Details Date Type Department Care Team (Late st Contact Info) Description 04/04/2025 Lab Requisition [facility] - Main Lab 299 [facility] [place] [address] Scott Starr MD [address] [place] [address] Diarrhea, unspecified Social History Tobacco Use Types [...] documented as of this encounter Care Teams Stud Driver Relationship Specialty Start Date End Date Tyler Castillo MD [address] [place] [address] PCP - General Internal Medicine 10/20/15 documented as of this encounter
--- OUTSIDE RECORDS SUMMARY | 2025-08-07 18:01 | XMS_ITS | Encounter Summary ---
Author Organization [facility] Address [address] [place] [address] Care Team Providers Care Building Operator Name Role Phone Tyler Castillo MD Primary Care Provider [phone] Encounter Details Date Type Department Care Team (Late st Contact Info) Description 04/11/2025 Lab Requisition [facility] - Main Lab [address] [place] [address] Scott Starr MD [address] [place], [place] [phone] Anemia, unspecified; Other malaise Social History Tobacco [...] LAB CHEMISTRY METHOD 04/11/2025 10:12 AM EDT [facility] Potassium 3.8 3.5 - 5.5 mmol/L LAB CHEMISTRY METHOD 04/11/2025 10:12 AM [facility] Chloride 103 96 - 110 mmol/L LAB CHEMISTRY METHOD 04/11/2025 10:12 AM [facility] CO2 25 21 - 32 mmol/L LAB CHEMISTRY METHOD 04/11/2025 10:12 AM [facility] Anion Gap 8 3 - 11 LAB CHEMISTRY METHOD 04/11/2025 10:12 AM [facility] Glucose 78 70 - 100 mg/dL LAB CHEMISTRY METHOD 04/11/2025 10:12 AM [facility] BUN 33(H) 5 - 25 mg/dL LAB CHEMISTRY METHOD 04/11/2025 10:12 AM [facility] Creatinine 1.35(H) 0.70 - 1.30 mg/dL LAB CHEMISTRY METHOD 04/11/2025 10:12 AM [facility] eGFR 54(L) >=60 mL/min/1. 73m2 LAB CHEMISTRY METHOD 04/11/2025 10:12 AM [facility] Comment:Calculation based on the Chronic Kidney Disease Epidemiology Collaboration (CKD-EPI) equation refit without adjustment for race. BUN/Creatinine Ratio 24.4 LAB CHEMISTRY METHOD 04/11/2025 10:12 AM [facility] Calcium 8.3(L) 8.5 - 10.5 mg/dL LAB CHEMISTRY METHOD 04/11/2025 10:12 AM [facility] Blood Venous blood specimen / Unknown Venipuncture / Unknown 04/11/2025 4:58 AM EDT 04/11/2025 9:25 AM EDT Scott Starr MD LAB BLOOD ORDERABLES Final Result [facility] [address] [place] [address], * (ABNORMAL) Complete blood count (04/11/2025 4:58 AM EDT) [facility] WBC 18.4(H) 4.8 - 10.8 K/mcL LAB HEMETOLOGY METHOD 04/11/2025 9:41 AM [facility] RBC 3.90(L) 4.50 - 5.50 M/mcL LAB HEMETOLOGY METHOD 04/11/2025 9:41 AM [facility] Hemoglobin 11.5(L) 13.5 - 17.5 g/dL LAB HEMETOLOGY METHOD 04/11/2025 9:41 AM [facility] Hematocrit 34.7(L) 42.0 - 54.0 % LAB HEMETOLOGY METHOD 04/11/2025 9:41 AM [facility] MCV 89.9 79.0 - 98.0 FL LAB HEMETOLOGY METHOD 04/11/2025 9:41 AM [facility] MCH 29.8 27.0 - 32.0 pcg LAB HEMETOLOGY METHOD 04/11/2025 9:41 AM [facility] MCHC 33.1 32.0 - 37.0 g/dL LAB HEMETOLOGY METHOD 04/11/2025 9:41 AM [facility] RDW 13.9 11.0 - 15.0 % LAB HEMETOLOGY METHOD 04/11/2025 9:41 AM [facility] Platelets 326 130 - 400 K/mcL LAB HEMETOLOGY METHOD 04/11/2025 9:41 AM [facility] MPV 9.1 7.0 - 11.0 FL LAB HEMETOLOGY METHOD 04/11/2025 9:41 AM [facility] NRBC 0.0 <1.0 % LAB HEMETOLOGY METHOD 04/11/2025 9:41 AM [facility] NRBC Absolute 0.00 <0.10 K/mcL LAB HEMETOLOGY METHOD 04/11/2025 9:41 AM EDT [facility] Blood Venous blood specimen / Unknown Venipuncture / Unknown 04/11/2025 4:58 AM EDT 04/11/2025 9:25 AM EDT Scott Starr MD LAB BLOOD ORDERABLES Final Result [facility] [address] [place] [address], documented in this encounter Visit Diagnoses Diagnosis Anemia, unspecified Other malaise documented in this encounter Care Teams Building Operator Relationship Specialty Start Date End Date Tyler Castillo MD [address] [place] [address] PCP - General Internal Medicine 10/20/15 documented as of this encounter
--- OUTSIDE RECORDS SUMMARY | 2025-08-07 18:01 | XMS_ITS | Encounter Summary ---
Author Organization [facility] Address [address] [place] [address] Care Team Providers Care Construction Controller Name Role Phone Tyler Castillo MD Primary Care Provider [phone] Encounter Details Date Type Department Care Team (Late st Contact Info) Description 03/18/2025 Lab Requisition [facility] - Main Lab [address] [facility] [place] [address] Scott Starr MD [address] [place], [place] [id number] Anemia, unspecified Social History Tobacco Use Types [...] Hold for add-ons. 03/19/2025 11:01 AM EDT [facility] Comment:Auto resulted. Blood Venous blood specimen / Unknown Venipuncture / Unknown 03/19/2025 8:12 AM EDT 03/19/2025 9:04 AM EDT us Scott Starr MD LAB BLOOD ORDERABLES Final Result [facility] [address] [place] [address], [place] [phone] * SST tube (03/19/2025 8:12 AM EDT) Extra Tube Hold for add-ons. 03/19/2025 11:01 AM EDT [facility] Comment:Auto resulted. Blood Venous blood specimen / Unknown Venipuncture / Unknown 03/19/2025 8:12 AM EDT 03/19/2025 9:04 AM EDT us Scott Starr MD LAB BLOOD ORDERABLES Final Result [facility] [address] [place] [address], [place] [phone] * Cortisol (03/19/2025 8:12 AM EDT) Cortisol 35.1 mcg/dL LAB CHEMISTRY METHOD 03/19/2025 11:51 AM EDT [facility] Blood Venous blood specimen / Unknown Venipuncture / Unknown 03/19/2025 8:12 AM EDT 03/19/2025 9:04 AM EDT Narrative [facility] - 03/19/2025 11:51 AM EDT CORTISOL REFERENCE RANGE 8 AM SPEC: 5.0-23.0 mcg/dL 4 PM SPEC: 3.0-16.0 mcg/dL 8 PM SPEC: <5.0 mcg/dL us Scott Starr MD LAB BLOOD ORDERABLES Final Result Performing Organization Address City/[facility]/ZIP Co de Phone Number [facility] [address] [place] [address], [place] [phone] * Thyroid stimulating hormone (03/19/2025 8:12 AM EDT) [facility] TSH 0.86 0.40 - 4.00 mcIU/mL LAB CHEMISTRY METHOD 03/19/2025 11:51 AM EDT [facility] Blood Venous blood specimen / Unknown Venipuncture / Unknown 03/19/2025 8:12 AM EDT 03/19/2025 9:04 AM EDT us Scott Starr MD LAB BLOOD ORDERABLES Final Result Performing Organization Address [facility]/ZIP Co de Phone Number [facility] [address] [place] [address], [place] [phone] * Basic metabolic panel (03/19/2025 8:12 AM EDT) [facility] Sodium 137 133 - 145 mmol/L LAB CHEMISTRY METHOD 03/19/2025 10:43 AM EDT [facility] Potassium 4.5 3.5 - 5.5 mmol/L LAB CHEMISTRY METHOD 03/19/2025 10:43 AM EDT [facility] Chloride 105 96 - 110 mmol/L LAB CHEMISTRY METHOD 03/19/2025 10:43 AM EDT [facility] CO2 23 21 - 32 mmol/L LAB CHEMISTRY METHOD 03/19/2025 10:43 AM EDT [facility] Anion Gap 9 3 - 11 LAB CHEMISTRY METHOD 03/19/2025 10:43 AM EDT [facility] Glucose 94 70 - 100 mg/dL LAB CHEMISTRY METHOD 03/19/2025 10:43 AM [facility] BUN 18 5 - 25 mg/dL LAB CHEMISTRY METHOD 03/19/2025 10:43 AM [facility] Creatinine 1.10 0.70 - 1.30 mg/dL LAB CHEMISTRY METHOD 03/19/2025 10:43 AM T [facility] eGFR 70 >=60 mL/min/1. 73m2 LAB CHEMISTRY METHOD 03/19/2025 10:43 AM T [facility] Comment:Calculation based on the Chronic Kidney Disease Epidemiology Collaboration (CKD-EPI) equation refit without adjustment for race. BUN/Creatinine Ratio 16.4 LAB CHEMISTRY METHOD 03/19/2025 10:43 AM [facility] Calcium 9.5 8.5 - 10.5 mg/dL LAB CHEMISTRY METHOD 03/19/2025 10:43 AM [facility] Blood Venous blood specimen / Unknown Venipuncture / Unknown 03/19/2025 8:12 AM EDT 03/19/2025 9:04 AM EDT Scott Starr MD LAB BLOOD ORDERABLES Final Result [facility] [address] [place] [address], * Complete blood count (03/19/2025 8:12 AM EDT) WBC 10.7 4.8 - 10.8 K/mcL LAB HEMETOLOGY METHOD 03/19/2025 9:33 AM T [facility] RBC 5.10 4.50 - 5.50 M/mcL LAB HEMETOLOGY METHOD 03/19/2025 9:33 AM T [facility] Hemoglobin 15.1 13.5 - 17.5 g/dL LAB HEMETOLOGY METHOD 03/19/2025 9:33 AM EDT [facility] Hematocrit 46.1 42.0 - 54.0 % LAB HEMETOLOGY METHOD 03/19/2025 9:33 AM EDT [facility] MCV 91.3 79.0 - 98.0 FL LAB HEMETOLOGY METHOD 03/19/2025 9:33 AM EDT [facility] MCH 29.9 27.0 - 32.0 pcg LAB HEMETOLOGY METHOD 03/19/2025 9:33 AM EDT [facility] MCHC 32.8 32.0 - 37.0 g/dL LAB HEMETOLOGY METHOD 03/19/2025 9:33 AM EDT [facility] RDW 13.4 11.0 - 15.0 % LAB HEMETOLOGY METHOD 03/19/2025 9:33 AM EDT [facility] Platelets 400 130 - 400 K/mcL LAB HEMETOLOGY METHOD 03/19/2025 9:33 AM EDT [facility] MPV 9.1 7.0 - 11.0 FL LAB HEMETOLOGY METHOD 03/19/2025 9:33 AM EDT [facility] NRBC 0.0 <1.0 % LAB HEMETOLOGY METHOD 03/19/2025 9:33 AM EDT [facility] NRBC Absolute 0.00 <0.10 K/mcL LAB HEMETOLOGY METHOD 03/19/2025 9:33 AM EDT [facility] Blood Venous blood specimen / Unknown Venipuncture / Unknown 03/19/2025 8:12 AM EDT 03/19/2025 9:04 AM EDT us Scott Starr MD LAB BLOOD ORDERABLES Final Result [facility] [address] [place] [address], documented in this encounter Visit Diagnoses Diagnosis Anemia, unspecified documented in this encounter Additional Health Concerns Infection Onset Date Last Indicated Resolved Time C. difficile Rule-Out 04/04/2025 04/04/20252024 12:46 PM EDT documented as of this encounter Care Teams Construction Controller Relationship Specialty Start Date End Date Tyler Castillo MD [address] [place] [address] PCP - General Internal Medicine 10/20/15 documented as of this encounter
--- OUTSIDE RECORDS SUMMARY | 2025-08-07 18:01 | XMS_ITS | Encounter Summary ---
Author Organization [facility] Address [address] [place] [address] Care Team Providers Care Scientific Programmer Analyst Name Role Phone Tyler Castillo MD Primary Care Provider [phone] Encounter Details Date Type Department Care Team (Late st Contact Info) Description 03/25/2025 Lab Requisition [facility] - Main Lab [address] [place] [address] Scott Starr MD [address] [place], [place] [phone] Anemia, unspecified Social History Tobacco Use Types [...] LAB CHEMISTRY METHOD 03/26/2025 11:14 AM EDT [facility] Potassium 5.0 3.5 - 5.5 mmol/L LAB CHEMISTRY METHOD 03/26/2025 11:14 AM [facility] Chloride 105 96 - 110 mmol/L LAB CHEMISTRY METHOD 03/26/2025 11:14 AM [facility] CO2 26 21 - 32 mmol/L LAB CHEMISTRY METHOD 03/26/2025 11:14 AM [facility] Anion Gap 7 3 - 11 LAB CHEMISTRY METHOD 03/26/2025 11:14 AM [facility] Glucose 85 70 - 100 mg/dL LAB CHEMISTRY METHOD 03/26/2025 11:14 AM [facility] BUN 18 5 - 25 mg/dL LAB CHEMISTRY METHOD 03/26/2025 11:14 AM [facility] Creatinine 1.06 0.70 - 1.30 mg/dL LAB CHEMISTRY METHOD 03/26/2025 11:14 AM [facility] eGFR 73 >=60 mL/min/1. 73m2 LAB CHEMISTRY METHOD 03/26/2025 11:14 AM [facility] Comment:Calculation based on the Chronic Kidney Disease Epidemiology Collaboration (CKD-EPI) equation refit without adjustment for race. BUN/Creatinine Ratio 17.0 LAB CHEMISTRY METHOD 03/26/2025 11:14 AM [facility] Calcium 9.5 8.5 - 10.5 mg/dL LAB CHEMISTRY METHOD 03/26/2025 11:14 AM [facility] Blood Venous blood specimen / Unknown Venipuncture / Unknown 03/26/2025 8:08 AM EDT 03/26/2025 10:22 AM EDT us Scott Starr MD LAB BLOOD ORDERABLES Final Result [facility] [address] [place] [address], * Complete blood count (03/26/2025 8:08 AM EDT) WBC 9.5 4.8 - 10.8 K/[facility] LAB HEMETOLOGY METHOD 03/26/2025 10:51 AM [facility] RBC 4.70 4.50 - 5.50 M/[facility] LAB HEMETOLOGY METHOD 03/26/2025 10:51 AM [facility] Hemoglobin 13.9 13.5 - 17.5 g/dL LAB HEMETOLOGY METHOD 03/26/2025 10:51 AM [facility] Hematocrit 43.4 42.0 - 54.0 % LAB HEMETOLOGY METHOD 03/26/2025 10:51 AM [facility] MCV 91.6 79.0 - 98.0 FL LAB HEMETOLOGY METHOD 03/26/2025 10:51 AM [facility] MCH 29.3 27.0 - 32.0 pcg LAB HEMETOLOGY METHOD 03/26/2025 10:51 AM [facility] MCHC 32.0 32.0 - 37.0 g/dL LAB HEMETOLOGY METHOD 03/26/2025 10:51 AM [facility] RDW 14.1 11.0 - 15.0 % LAB HEMETOLOGY METHOD 03/26/2025 10:51 AM [facility] Platelets 378 130 - 400 K/[facility] LAB HEMETOLOGY METHOD 03/26/2025 10:51 AM [facility] MPV 9.5 7.0 - 11.0 FL LAB HEMETOLOGY METHOD 03/26/2025 10:51 AM [facility] NRBC 0.0 <1.0 % LAB HEMETOLOGY METHOD 03/26/2025 10:51 AM [facility] NRBC Absolute 0.00 <0.10 K/[facility] LAB HEMETOLOGY METHOD 03/26/2025 10:51 AM [facility] Blood Venous blood specimen / Unknown Venipuncture / Unknown 03/26/2025 8:08 AM EDT 03/26/2025 10:22 AM EDT Scott Starr MD LAB BLOOD ORDERABLES Final Result Performing Organization Address City/State/[facility] Co de Phone Number [facility] [address] [place] [address], documented in this encounter Visit Diagnoses Diagnosis Anemia, unspecified documented in this encounter Additional Health Concerns Infection Onset Date Last Indicated Resolved Time C. difficile Rule-Out 04/04/2025 04/04/20252024 12:46 PM EDT documented as of this encounter Care Teams Scientific Programmer Analyst Relationship Specialty Start Date End Date Tyler Castillo MD [address] [place] [address] PCP - General Internal Medicine 10/20/15 documented as of this encounter
--- OUTSIDE RECORDS SUMMARY | 2025-08-07 18:01 | XMS_ITS | Patient Health Record ---
Author Organization Thaddeus Oreilly III, MD Address [address] [place] [address] [place] [address] Care Team Providers Care Quantitative Associate Name Role Phone Dr. Thaddeus Oreilly III Primary Care Provider Allergies Allergen (clinical drug ingredient) Drug/Non Drug Allergy documented on EMR Reaction Allergy Type Onset Date Status No Known Drug Allergy Unknown Drug Allergy Active Results Component Value Reference Range Notes Complete Blood Count Auto Di ff Reviewed date:08/13/2024 04:55:29 AM Interpretation: Performing Lab:[facility], [address] [place] [phone] Notes/Report: White Blood Count 9.6 4.8-10.8 X10*3/uL [...] Panel Reviewed date:08/13/2024 04:55:29 AM Interpretation: Performing Lab:[address] [address] Notes/Report: Sodium 139 135-145 mmol/L Potassium 5.0 [...] Antigen Reviewed date:08/13/2024 04:55:29 AM Interpretation: Performing Lab:[address] [address] Notes/Report: Prostate Specific Antigen 4.00 <0.05- 4.0 ng/mL PSA methodology: [employer] i Chemiluminescent Microparticle Immunoassay (CMIA) Complete Blood Count Auto Di ff Reviewed date:11/05/2024 03:32:23 PM Interpretation: Performing Lab:[facility], [address] [place] [phone] Notes/Report: White Blood Count 7.8 4.8-10.8 X10*3/uL [...] NRBC Abs Auto 0.000 0.0-0.012 X10*3/uL Comprehensive [place]. Panel Fa st Reviewed date:11/05/2024 03:32:23 PM Interpretation: Performing Lab:[facility], [address] [place] [phone] Notes/Report: Sodium 139 135-145 mmol/L Potassium 4.4 [...] Panel Reviewed date:11/05/2024 03:32:23 PM Interpretation: Performing Lab:[facility], [address] [place] [phone] Notes/Report: Triglycerides 197 <150 mg/dL Desirable Triglyceride: [...] Antigen Reviewed date:11/05/2024 03:32:23 PM Interpretation: Performing Lab:[address] [address] Notes/Report: Prostate Specific Antigen 3.92 <0.05- 4.0 ng/mL PSA methodology: [employer] i Chemiluminescent Microparticle Immunoassay (CMIA) Complete Blood Count Auto Di ff Reviewed date:02/24/2025 01:37:52 PM Interpretation: Performing Lab:[facility], [address] [place] [phone] Notes/Report: White Blood Count 15.3 4.8-10.8 X10*3/uL [...] Panel Reviewed date:02/24/2025 01:37:52 PM Interpretation: Performing Lab:[facility], [address] [place] [phone] Notes/Report: Bilirubin Total 0.6 0.0-1.0 mg/dL Bilirubin Direct 0.3 0.0-0.5 mg/dL Aspartate Amino Transferase 22 5-37 U/L Alanine Aminotransferase 21 0-40 U/L Total Protein 7.4 6.5-8.0 g/dL Albumin Level 4.3 3.5-5.0 g/dL Alkaline Phosphatase 91 39-117 U/L Basic Metabolic Panel Reviewed date:02/24/2025 01:37:52 PM Interpretation: Performing Lab:[facility], [address] [place] [phone] Notes/Report: Sodium 142 135-145 mmol/L Potassium 4.5 [...] Acid Reviewed date:02/24/2025 01:37:52 PM Interpretation: Performing Lab:[facility], [address] [place] [phone] Notes/Report: Lactic Acid 1.0 0.5-2.0 mmol/L Magnesium Reviewed date:02/24/2025 01:37:52 PM Interpretation: Performing Lab:[facility], [address] [place] [phone] Notes/Report: Magnesium 2.3 1.6-2.6 mg/dL Urine Culture Reviewed date:02/24/2025 01:37:52 PM Interpretation: Performing Lab:[facility], [address] [place] [phone] Notes/Report: Urine Culture No growth. Blood Culture (First) Reviewed date:02/28/2025 04:32:50 AM Interpretation: Performing Lab:[facility], [address] [place] [phone] Notes/Report: Blood Culture (First) No growth after 5 days. Blood Culture (Second) Reviewed date:02/28/2025 04:32:50 AM Interpretation: Performing Lab:[facility], [address] [place] [phone] Notes/Report: Blood Culture (Second) No growth after 5 days. UA ClnCatch+Micro w/rflx Cul t Reviewed date:02/24/2025 01:37:52 PM Interpretation: Performing Lab:[facility], [address] [place] [phone] Notes/Report: [id number] Urine, Catheterized Color Urine Yellow Appearance Urine Clear PH 5.0 5.0-9.0 Glucose Urine UA Negative Negative mg/dL Urine Blood Small (1+) Negative Specific Shelley - Urine 1.020 1.005-1.025 Urine Protein Negative [...] date:02/24/2025 01:37:52 PM Interpretation: Performing Lab: Notes/Report: [address] [address] [address] Scan Report Signed Patient: Curt Trejo MR#: [id number] : 1950 Acct:[id number] Age/Sex: 74 / M ADM Date: 02/22/25 Loc: [facility] 468-[address]: Anupam Tate MD Ordering Physician: Francisco Blanton MD Date of Service: 02/22/25 Procedure(s): CT abdomen pelvis wo IV con Accession Number(s): [id number] cc: Thaddeus Oreilly MD; Francisco Blanton MD Report Number: [id number]: Total DLP = 711.00 mGy-cm CLINICAL HISTORY: [...] in OV> 02/22/252233 DD/ 31 TD/TT: 02/22/252231 Screw Machine Set Up Operator Tool: [place] [address] CT Scan Report Signed Patient: Mikhail Trejo MR#: [id number] : 1950 Acct:[id number] Age/Sex: 74 / M ADM Date: 02/22/25 Loc: [facility] 468-[address]: Rich Tate MD Ordering Physician: Francisco Blanton MD Date of Service: 02/22/25 Procedure(s): CT abd omen pelvis wo IV con Accession Number(s): [id number] cc: Thaddeus Oreilly MD; Francisco Blanton MD [...] in OV> 02/22/252233 DD/ 31 TD/TT: 02/22/252231 Screw Machine Set Up Operator Tool: Complete Blood Count Auto Di ff Reviewed date:02/24/2025 01:37:52 PM Interpretation: Performing Lab:[facility], [address] [place] [phone] Notes/Report: White Blood Count 11.8 4.8-10.8 X10*3/uL [...] Panel Reviewed date:02/24/2025 01:37:52 PM Interpretation: Performing Lab:[facility], [address] [place] [phone] Notes/Report: Sodium 143 135-145 mmol/L Potassium 4.0 [...] Panel Reviewed date:02/24/2025 01:37:52 PM Interpretation: Performing Lab:[address] [address] Notes/Report: Sodium 143 135-145 mmol/L Potassium 3.4 [...] Phosphorus Reviewed date:02/24/2025 01:37:52 PM Interpretation: Performing Lab:[address] [phone] Notes/Report: Phosphorus 2.2 2.7-4.5 mg/dL Magnesium Reviewed date:02/24/2025 01:37:52 PM Interpretation: Performing Lab:[address] [phone] Notes/Report: Magnesium 1.2 1.6-2.6 mg/dL Critical [Magnesium] sent by a secure message and confirmed by (SHONA, 02/24/25 1154) Tech: ROSEMARY Basic Metabolic Panel Reviewed date:02/27/2025 05:39:52 AM Interpretation: Performing Lab:[facility], [address] [place] [phone] Notes/Report: Sodium 139 135-145 mmol/L Potassium 3.0 [...] Phosphorus Reviewed date:02/27/2025 05:39:52 AM Interpretation: Performing Lab:[facility], [address] [place] [phone] Notes/Report: Phosphorus 1.4 2.7-4.5 mg/dL Magnesium Reviewed date:02/27/2025 05:39:52 AM Interpretation: Performing Lab:[facility], [address] [place] [phone] Notes/Report: Magnesium 1.4 1.6-2.6 mg/dL Critical mags sent by a secure message and confirmed by katelin Smart 02/25/25 0956 Tech: yanira Basic Metabolic Panel Reviewed date:02/27/2025 05:39:52 AM Interpretation: Performing Lab:[facility], [address] [place] [phone] Notes/Report: Sodium 139 135-145 mmol/L Test was [...] Phosphorus Reviewed date:02/27/2025 05:39:52 AM Interpretation: Performing Lab:[facility], [address] [place] [phone] Notes/Report: Phosphorus 2.4 2.7-4.5 mg/dL Magnesium Reviewed date:02/27/2025 05:39:52 AM Interpretation: Performing Lab:[facility], [address] [place] [phone] Notes/Report: Magnesium 1.7 1.6-2.6 mg/dL Basic Metabolic Panel Reviewed date:02/27/2025 05:39:52 AM Interpretation: Performing Lab:[facility], [address] [place] [phone] Notes/Report: Sodium 142 135-145 mmol/L Potassium 3.6 [...] Phosphorus Reviewed date:02/27/2025 05:39:52 AM Interpretation: Performing Lab:[facility], [address] [place] [phone] Notes/Report: Phosphorus 2.0 2.7-4.5 mg/dL Magnesium Reviewed date:02/27/2025 05:39:52 AM Interpretation: Performing Lab:[facility], [address] [place] [phone] Notes/Report: Magnesium 1.4 1.6-2.6 mg/dL Critical [MAGS] sent by a secure message and confirmed by ( ON [id number] @0652) Tech:TIFF Hold Lav - Possible Hematolo gy Reviewed date:02/27/2025 03:19:41 PM Interpretation: Performing Lab:[facility], [address] [place] [phone] Notes/Report: Hold Lav - Possible Hematology SEE NOTE Specimen will be held untested for 8 hours. Call Hematology if testing is desired. Basic Metabolic Panel Reviewed date:02/27/2025 03:19:41 PM Interpretation: Performing Lab:[facility], [address] [place] [phone] Notes/Report: Sodium 142 135-145 mmol/L Potassium 4.1 [...] Phosphorus Reviewed date:02/27/2025 03:19:41 PM Interpretation: Performing Lab:[facility], [address] [place] [phone] Notes/Report: Phosphorus 2.0 2.7-4.5 mg/dL Magnesium Reviewed date:02/27/2025 03:19:41 PM Interpretation: Performing Lab:[address] [address] Notes/Report: Magnesium 1.9 1.6-2.6 mg/dL Urine Culture Reviewed date:06/10/2025 03:18:52 PM Interpretation: Performing Lab:[address] [address] Notes/Report: O:ENTFAC Enterococcus faecalis Urine Culture Quant Urine Culture > 100,000 cfu/mL Ampicillin <=2 Levofloxacin 0.5 Nitrofurantoin <=16 Tetracycline >=16 Vancomycin 1 Complete Blood Count Auto Di ff Reviewed date:06/10/2025 03:18:52 PM Interpretation: Performing Lab:[facility], [address] [place] [phone] Notes/Report: White Blood Count 13.1 4.8-10.8 X10*3/uL [...] Panel Reviewed date:06/10/2025 03:18:52 PM Interpretation: Performing Lab:[address] [address] Notes/Report: Sodium 143 135-145 mmol/L Potassium 4.6 [...] Panel Reviewed date:06/10/2025 03:18:52 PM Interpretation: Performing Lab:[address] [address] Notes/Report: Triglycerides 104 <150 mg/dL Desirable Triglyceride: [...] Total Reviewed date:06/10/2025 03:18:52 PM Interpretation: Performing Lab:[facility], [address] [place] [phone] Notes/Report: Prostate Specific Ag Total 5.0 < [...] 30 93 9 (3)Catalona et al.:LEROY 277: 2652-1490 (1996) (4)Catalona et al.:LEROY 279: 7179-4373 (1997) (x)These estimates vary with age, ethnicity, [...] mind. PSA was performed using the Zulma [place] Immunoassay method. Values obtained from different assay methods cannot be used interchangeably. PSA levels, regardless of value, should not be interpreted as absolute evidence of the presence or absence of disease. THIS TEST WAS PERFORMED AT: [facility] [address] [place] [phone] JOHN PAUL BELCHER MD Free Prostate Spec Ag 0.3 Venous Blood Gases - POC Reviewed date:07/12/2025 05:22:57 AM Interpretation: Performing Lab:[facility], [address] [place] [address] Notes/Report: VBG pH 7.36 7.32-7.43 METER #: [id number] additional_comment : Cb mcmolli VBG pCO2 24 METER #: [id number] additional_comment : Cb mcmolli VBG pO2 72 METER #: [id number] additional_comment : Cb mcmolli VBG Base Excess -9.3 METER #: [id number] additional_comment : Cb mcmolli VBG HCO3 14 22-26 mmol/L METER #: [id number] additional_comment : Cb mcmolli VBG O2 % Saturation 93.0 METER #: [id number] additional_comment : Cb carlosi US renal BI Reviewed date:07/12/2025 05:22:57 AM Interpretation: Performing Lab: Notes/Report: [address] [address] Ultrasound Report Signed Patient: Curt Trejo MR#: [id number] : 1950 Acct:[id number] Age/Sex: 74 / M ADM Date: 07/10/25 Loc: [facility]: Mt Rodriguez MD Ordering Physician: Katie Gutiérrez PA-C Date of Service: 07/10/25 Procedure(s): US renal BI Accession Number(s): [id number] cc: Thaddeus Oreilly MD; Katie Gutiérrez PA-C Reason for Exam: elevated cr, hydro on bedside US in ED, re-eval EXAMINATION: US RETROPERITONEAL LIMITED (RENAL ONLY) CLINICAL INFORMATION: Elevated creatinine, either.. COMPARISON: None available. TECHNIQUE: Retroperitoneal ultrasound of kidneys was performed. FINDINGS: RIGHT KIDNEY: 11.1 x 6.9 x 5.7 cm (SAG x AP x TRV). The kidney is normal in size, contour, and echogenicity. Renal cortical thickness is normal. Prominent renal pyramids are seen with punctate tiny calcification seen throughout. There is mild hydronephrosis LEFT KIDNEY: 12.5 x 6.9 x 6.5 cm (SAG x AP x TRV). The kidney is normal in size, contour, and echogenicity. Renal cortical thickness is normal. There are prominent renal pyramids with calcification seen. There is mild hydronephrosis US/US renal BI IMPRESSION: Bilateral prominent renal pyramids with punctate tiny calcifications. There is mild bilateral hydronephrosis.. Electronically signed by: Pj Ewing MD 07/11/2025 07:17 AM EST Dictated By: Pj Ewing MD Signed By: <Electronically signed by Pj Ewing MD in OV> 07/11/25 0717 DD/ 01 TD/TT: 07/10/252207 Screw Machine Set Up Operator Tool: [place] [address] Ultrasound Report Signed Patient: Mikhail Trejo MR#: [id number] : 1950 Acct:[id number] Age/Sex: 74 / M ADM Date: 07/10/25 Loc: [facility]: Shira Rodriguez MD Ordering Physician: Katie Gutiérrez PA-C Date of Service: 07/10/25 Procedure(s): US renal BI Accession Number(s): [id number] cc: Thaddeus Oreilly MD; Katie Gutiérrez PA-C Reason for Exam: shawn vated cr, hydro on bedside US in ED, re-eval EXAMINATION: US RETROPERITONEAL L IMITED (RENAL ONLY) CLINICAL INFORMATION: Elevated creatinine, either.. COMPARISON: None available. TECHNIQUE: Retroperitoneal ultr asound of kidneys was performed. FINDINGS: RIGHT KIDNEY: 11.1 x 6.9 x 5.7 cm (SAG x AP x TRV). The kidney is normal in size, cont our, and echogenicity. Renal cortical thickness is normal. Prominent re nal pyramids are seen with punctate tiny calcification seen throughout. There is mild hydronephrosis LEFT KIDNEY: 12.5 x 6.9 x 6.5 cm (SAG x AP x TRV). The kidney is normal in size, contour, an d echogenicity. Renal cortical thickness is normal. There are prominent renal pyramids with calcification seen. There is mild hydronephrosis U S/US renal BI IMPRESSION: Bilateral prominent renal pyramids with punctate tiny calcifications. There is mild bilate ral hydronephrosis.. Electronically brian d by: Pj Ewing MD 07/11/2025 07:17 AM [facility] Dictated By: Mr brent Ewing MD Signed By: <Electron ically signed by Pj Ewing MD in OV> 07/11/25716 DD/ 01 TD/TT: 07/10/252207 Screw Machine Set Up Operator Tool: COLLETTE Complete Blood Count Auto Di ff Reviewed date:07/12/2025 05:22:57 AM Interpretation: Performing Lab:[facility], [address] [place] [phone] Notes/Report: White Blood Count 17.5 4.8-10.8 X10*3/uL Red Blood Count 3.85 4.60-5.80 X10*6/uL Hemoglobin 11.5 14.0-18.0 g/dl Hematocrit 34.6 42.0-52.0 % Mean Corpuscular Volume 89.9 80.0-98.0 fL Mean Corpuscular Hemoglobin 29.9 27.0-33.0 pg Mean Corpuscular HGB Conc 33.2 31.0-36.0 g/dl Red Cell Distribution Width 15.5 11.0-16.0 % Platelet Count 213 160-400 X10*3/uL Mean Platelet Volume 9.4 9.4-12.4 fL Neutrophils Percent Auto 85.6 45-73 % Imm Gran Pct Auto 0.4 0.0-0.4 % Lymphocytes Percent Auto 4.5 20-40 % Monocytes Percent Auto 9.2 2-11 % Eosinophils Percent Auto 0.1 0-4 % Basophils Percent Auto 0.2 0-2 % NRBC Pct Auto 0.0 0.0-0.2 /100WBC Neutrophils Absolute Auto 15.0 2.0-8. 3 x10*3/uL Imm Gran Abs Auto 0.07 0.00-0.03 X10*3/uL Lymphocytes Absolute Auto 0.8 1.2-4. 9 X10*3/uL Monocytes Absolute Auto 1.6 0.1-1.2 X10*3/uL Eosinophils Absolute Auto 0.0 0.0-0. 4 X10*3/uL Basophils Absolute Auto 0.0 0.0-0.2 X10*3/uL NRBC Abs Auto 0.000 0.0-0.012 X10*3/uL White Blood Count 17.5 4.8-10.8 X10*3/uL Red Blood Count 3.85 4.60-5.80 X10*6/uL Hemoglobin 11.5 14.0-18.0 g/dl Hematocrit 34.6 42.0-52.0 % Mean Corpuscular Volume 89.9 80.0-98.0 fL Mean Corpuscular Hemoglobin 29.9 27.0-33.0 pg Mean Corpuscular HGB Conc 33.2 31.0-36.0 g/dl Red Cell Distribution Width 15.5 11.0-16.0 % Platelet Count 213 160-400 X10*3/uL Mean Platelet Volume 9.4 9.4-12.4 fL Neutrophils Percent Auto 85.6 45-73 % Imm Gran Pct Auto 0.4 0.0-0.4 % Lymphocytes Percent Auto 4.5 20-40 % Monocytes Percent Auto 9.2 2-11 % Eosinophils Percent Auto 0.1 0-4 % Basophils Percent Auto 0.2 0-2 % NRBC Pct Auto 0.0 0.0-0.2 /100WBC Neutrophils Absolute Auto 15.0 2.0-8. 3 x10*3/uL Imm Gran Abs Auto 0.07 0.00-0.03 X10*3/uL Lymphocytes Absolute Auto 0.8 1.2-4. 9 X10*3/uL Monocytes Absolute Auto 1.6 0.1-1.2 X10*3/uL Eosinophils Absolute Auto 0.0 0.0-0. 4 X10*3/uL Basophils Absolute Auto 0.0 0.0-0.2 X10*3/uL NRBC Abs Auto 0.000 0.0-0.012 X10*3/uL UNA ECTED REPORT UNA ECTED REPORT Basic Metabolic Panel Reviewed date:07/12/2025 05:22:57 AM Interpretation: Performing Lab:[address] [address] Notes/Report: Sodium 137 135-145 mmol/L Potassium 4.4 3.3-5.1 mmol/L Chloride 108 96-108 mmol/L Carbon Dioxide 15 22-29 mmol/L Anion Gap 18 12-20 Blood Urea Nitrogen 121 9-16 mg/dL Creatinine 6.55 0.5-1.4 mg/dL Critical value for test(s): CREAT Results called to and read back by: JACKIE Person calling:VYASRID Date: [id number] Time:0144 Creatinine Clr Calc Pharmacy 11.1 eGFR (calculated from the MDRD study equation) and eCrCl (calculated from the Cockcroft-Gault equation) are based on different parameters and may not yield comparable results. If eCrCl result is absurd, please check patient's height/weight. Estimated Glomerular Filt Rate 8 Chronic Kidney Disease: Estimated GFR < 60 mL/min/1.73m2 Severe Kidney Disease: Estimated GFR < 15 mL/min/1.73m2 Glucose Random 88 60-115 mg/dL Calcium 9.0 8.4-10.2 mg/dL Magnesium Reviewed date:07/12/2025 05:22:57 AM Interpretation: Performing Lab:[address] [address] Notes/Report: Magnesium 2.3 1.6-2.6 mg/dL SLIDE REVIEW Reviewed date:07/12/2025 05:22:57 AM Interpretation: Performing Lab:[facility], [address] [place] [phone] Notes/Report: SLIDE REVIEW VERIFIED NT Pro B Type Natriuretic Pe pt Reviewed date:07/12/2025 05:22:57 AM Interpretation: Performing Lab:[facility], [address] [place] [phone] Notes/Report: NT Pro B Type Natriuretic Pept 5260.4 <300 pg/mL Reference Range: Age Group (years) NT-proBNP (pg/ml) Interpretation All <300 Negative: HF unlikely For patients presenting to the ED with clinical suspicion of new onset or worsening HF, see below: 18 to <50 >299.9 to <450.0 Grayzone: Consider 50 to 75 >299.9 to <900.0 other causes of >75 >299.9 to <1800.0 NT-proBNP elevation 18 to <50 >449.9 Positive: HF likely 50-75 >899.9 >75 >1799.9 Note: Elevated NT-proBNP levels should be interpreted in the context of other clinical information. CT abdomen pelvis wo con Reviewed date:07/12/2025 05:22:57 AM Interpretation: Performing Lab: Notes/Report: [address] [address] [address] Scan Report Signed Patient: Curt Trejo MR#: [id number] : 1950 Acct:[id number] Age/Sex: 74 / M ADM Date: 07/10/25 Loc: [facility]: Katie Gutiérrez PA-C Ordering Physician: Katie Gutiérrez PA-C Date of Service: 07/11/25 Procedure(s): CT abdomen pelvis wo IV con Accession Number(s): [id number] cc: Thaddeus Oreilly MD; Katie Gutiérrez PA-C Report Number: [id number]: Total DLP = 572.00 mGy-cm Reason for Exam: urinary retention, ANGELA CLINICAL HISTORY: urinary retention, ANGELA CT abdomen and pelvis without contrast Comparison: US/SR - US RENAL BI - 07/10/25 22:[address]/SR - CT ABDOMEN PELVIS WO IV CON - 02/22/25 20:02 EDT Findings: The lung bases are clear without effusion or consolidation. Liver, gallbladder, spleen, pancreas, and bilateral adrenal glands are within normal limits. Multiple punctate left intrarenal stones are present measuring up to 3 mm in the left lower pole. Mild hydroureteronephrosis is present without focal obstructions are radiopaque stones identified. Bladder is collapsed around a Mojica catheter with mild intraluminal air penetration to stranding around the bladder phipps, Nonspecific. Aorta is nonaneurysmal and contains moderate atherosclerotic calcification throughout. No abdominal or pelvic free fluid. No bowel obstruction, pneumoperitoneum, or pneumatosis. Appendix not visualized. Prostate unremarkable. Degenerative changes of the lower lumbar spine without acute osseous abnormality. No acute soft tissue abnormality. IMPRESSION: 1. Mild persistent right hydronephrosis with new right ureteral dilation and no left hydronephrosis. Stable punctate left intrarenal stones. 2. Mild bladder nonspecific bladder wall stranding could reflect cystitis in the appropriate clinical setting. This document has been electronically signed by: Marbin Genao MD on 07/11/2025 07:03:21 Dictated By: Marbin Genao MD Signed By: <Electronically signed by Marbin Genao MD in OV> 07/11/25 0704 DD/ 2 TD/TT: 07/11/25702 Screw Machine Set Up Operator Tool: [place] [address] CT Scan Report Signed Patient: Mikhail Trejo MR#: [id number] : 1950 Acct:[id number] Age/Sex: 74 / M ADM Date: 07/10/25 Loc: [facility]: Ashlee Gutiérrez PA-C Ordering Physician: Katie Gutiérrez PA-C Date of Service: 07/11/25 Procedure(s): CT abd omen pelvis wo IV con Accession Number(s): [id number] cc: Thaddeus Oreilly MD; Katie Gutiérrez PA-C Report Number: [id number]: Total DLP = 572.00 mGy-cm Reason for Exam: uri nary retention, ANGELA CLINICAL HISTORY: ur inary retention, ANGELA CT abdomen and pelvi s without contrast Comparison: US/SR - US RENAL BI - 07/10/25 22:[address]/SR - CT ABDOMEN P CLARISSA WO IV CON - 02/22/25 20:02 EDT Findings: The lung bases are c lear without effusion or consolidation. Liver, gallbladder, spleen, pancreas, and bilateral adrenal glands are within normal limits. Multiple punctate le ft intrarenal stones are present measuring up to 3 mm in the left lower po le. Mild hydroureteronephrosis is present without focal obstructions a re radiopaque stones identified. Bladder is collapsed around a Mojica tab ter with mild intraluminal air penetration to stranding around the bladder phipps, Nonspecific. Aorta is nonaneurysm al and contains moderate atherosclerotic calcification throughout. No abdom inal or pelvic free fluid. No bowel obstruction , pneumoperitoneum, or pneumatosis. Appendix not visualized. Prostate unremarkabl e. Degenerative changes of the lower lumbar spine without acute osseou s abnormality. No acute soft tissue abnormality. IMPRESSION: 1. Mild persistent r ight hydronephrosis with new right ureteral dilation and no left hydronephrosis. Stable punctate left intrarenal stones. 2. Mild bladder nonspecific bladder wall stranding could reflect cystitis in the appropriate clinical setting. This document has be en electronically signed by: Marbin Genao MD on 07/11/2025 07:03:21 Dictated By: Katie Genao MD Signed By: <Emmanuel hooker signed by Marbin Genao MD in OV> 07/11/25 0704 DD/ 2 TD/TT: 07/11/25 07 Screw Machine Set Up Operator Tool: Basic Metabolic Panel Reviewed date:07/12/2025 05:22:57 AM Interpretation: Performing Lab:[facility], [address] [place] [phone] Notes/Report: Sodium 137 135-145 mmol/L Potassium 4.3 3.3-5.1 mmol/L Chloride 108 96-108 mmol/L Carbon Dioxide 16 22-29 mmol/L Anion Gap 17 12-20 Blood Urea Nitrogen 120 9-16 mg/dL Creatinine 6.53 0.5-1.4 mg/dL Critical value for test(s): CREAT Results called to and read back by:JACKIE Person calling: VYASRID Date:[id number] Time:431 Creatinine Clr Calc Pharmacy 11.1 eGFR (calculated from the MDRD study equation) and eCrCl (calculated from the Cockcroft-Gault equation) are based on different parameters and may not yield comparable results. If eCrCl result is absurd, please check patient's height/weight. Estimated Glomerular Filt Rate 8 Chronic Kidney Disease: Estimated GFR < 60 mL/min/1.73m2 Severe Kidney Disease: Estimated GFR < 15 mL/min/1.73m2 Glucose Random 81 60-115 mg/dL Calcium 9.3 8.4-10.2 mg/dL Complete Blood Count Auto Di ff Reviewed date:07/14/2025 08:03:05 AM Interpretation: Performing Lab:[facility], [address] [place] [phone] Notes/Report: White Blood Count 15.1 4.8-10.8 X10*3/uL Red Blood Count 4.29 4.60-5.80 X10*6/uL Hemoglobin 12.7 14.0-18.0 g/dl Hematocrit 38.1 42.0-52.0 % Mean Corpuscular Volume 88.8 80.0-98.0 fL Mean Corpuscular Hemoglobin 29.6 27.0-33.0 pg Mean Corpuscular HGB Conc 33.3 31.0-36.0 g/dl Red Cell Distribution Width 15.2 11.0-16.0 % Platelet Count 250 160-400 X10*3/uL Mean Platelet Volume 9.3 9.4-12.4 fL Neutrophils Percent Auto 83.9 45-73 % Imm Gran Pct Auto 1.0 0.0-0.4 % Lymphocytes Percent Auto 4.8 20-40 % Monocytes Percent Auto 8.8 2-11 % Eosinophils Percent Auto 1.3 0-4 % Basophils Percent Auto 0.2 0-2 % NRBC Pct Auto 0.0 0.0-0.2 /100WBC Neutrophils Absolute Auto 12.7 2.0-8. 3 x10*3/uL Imm Gran Abs Auto 0.15 0.00-0.03 X10*3/uL Lymphocytes Absolute Auto 0.7 1.2-4. 9 X10*3/uL Monocytes Absolute Auto 1.3 0.1-1.2 X10*3/uL Eosinophils Absolute Auto 0.2 0.0-0. 4 X10*3/uL Basophils Absolute Auto 0.0 0.0-0.2 X10*3/uL NRBC Abs Auto 0.000 0.0-0.012 X10*3/uL Basic Metabolic Panel Reviewed date:07/14/2025 08:03:05 AM Interpretation: Performing Lab:[facility], [address] [place] [phone] Notes/Report: Sodium 138 135-145 mmol/L Potassium 3.8 3.3-5.1 mmol/L Chloride 108 96-108 mmol/L Carbon Dioxide 18 22-29 mmol/L Anion Gap 16 12-20 Blood Urea Nitrogen 101 9-16 mg/dL Creatinine 3.62 0.5-1.4 mg/dL Creatinine Clr Calc Pharmacy 19.7 eGFR (calculated from the MDRD study equation) and eCrCl (calculated from the Cockcroft-Gault equation) are based on different parameters and may not yield comparable results. If eCrCl result is absurd, please check patient's height/weight. Estimated Glomerular Filt Rate 16 Chronic Kidney Disease: Estimated GFR < 60 mL/min/1.73m2 Severe Kidney Disease: Estimated GFR < 15 mL/min/1.73m2 Glucose Random 155 60-115 mg/dL Calcium 8.9 8.4-10.2 mg/dL Phosphorus Reviewed date:07/14/2025 08:03:05 AM Interpretation: Performing Lab:[facility], [address] [place] [phone] Notes/Report: Phosphorus 5.0 2.7-4.5 mg/dL Magnesium Reviewed date:07/14/2025 08:03:05 AM Interpretation: Performing Lab:[facility], [address] [place] [phone] Notes/Report: Magnesium 1.8 1.6-2.6 mg/dL Basic Metabolic Panel Reviewed date:07/14/2025 08:03:05 AM Interpretation: Performing Lab:[address] [phone] Notes/Report: Sodium 140 135-145 mmol/L Potassium 3.4 3.3-5.1 mmol/L Chloride 106 96-108 mmol/L Carbon Dioxide 22 22-29 mmol/L Anion Gap 15 12-20 Blood Urea Nitrogen 62 9-16 mg/dL Creatinine 2.20 0.5-1.4 mg/dL Creatinine Clr Calc Pharmacy 32.5 eGFR (calculated from the MDRD study equation) and eCrCl (calculated from the Cockcroft-Gault equation) are based on different parameters and may not yield comparable results. If eCrCl result is absurd, please check patient's height/weight. Estimated Glomerular Filt Rate 29 Chronic Kidney Disease: Estimated GFR < 60 mL/min/1.73m2 Severe Kidney Disease: Estimated GFR < 15 mL/min/1.73m2 Glucose Random 123 60-115 mg/dL Calcium 8.9 8.4-10.2 mg/dL Hold Lav - Possible Hematolo gy Reviewed date:07/15/2025 09:13:09 AM Interpretation: Performing Lab:[facility], [address] [place] [phone] Notes/Report: Hold Lav - Possible Hematology SEE NOTE Specimen will be held untested for 8 hours. Call Hematology if testing is desired. Basic Metabolic Panel Reviewed date:07/15/2025 09:13:09 AM Interpretation: Performing Lab:[facility], [address] [place] [phone] Notes/Report: Sodium 142 135-145 mmol/L Potassium 4.1 3.3-5.1 mmol/L Chloride 107 96-108 mmol/L Carbon Dioxide 23 22-29 mmol/L Anion Gap 16 12-20 Blood Urea Nitrogen 49 9-16 mg/dL Creatinine 1.87 0.5-1.4 mg/dL Creatinine Clr Calc Pharmacy 38.2 eGFR (calculated from the MDRD study equation) and eCrCl (calculated from the Cockcroft-Gault equation) are based on different parameters and may not yield comparable results. If eCrCl result is absurd, please check patient's height/weight. Estimated Glomerular Filt Rate 35 Chronic Kidney Disease: Estimated GFR < 60 mL/min/1.73m2 Severe Kidney Disease: Estimated GFR < 15 mL/min/1.73m2 Glucose Random 101 60-115 mg/dL Calcium 8.9 8.4-10.2 mg/dL Reason For Referral Reason Evaluate and Treat Medication Management and Teaching Long Term Diagnosis 1 Need for assistance at home [...] Shanika stated it would still be considered senior living. Would like referral to be refaxed with to [phone]. Referral was refaxed. Referral Priority Routine Referral Appointment Date 06/12/2025 Medications Medication SIG (Take, Route, Frequency, Duration) Notes Start Date End Date Status Alfuzosin HCl ER 10 MG 1 tablet Orally Once a day 05/01/2025 Active Albuterol Sulfate (2.5 MG/3ML) 0.083% INHALE 3 ML TWICE DAILY WITH NEBULIZER Inhalation Active Omeprazole 20 MG TAKE 1 CAPSULE BY [facility] EVERY DAY 30 MINUTES BEFORE BREAKFAST Active Finasteride 5 MG 1 tablet Orally Once a day 2024 Active Budesonide 0.5 MG/2ML INHALE 2 ML BY NEBULIZATION TWICE DAILY FOR 30 DAYS Inhalation Active Ventolin HFA 108 (90 Base) MCG/ACT INHALE 2 PUFFS INTO THE LUNGS EVERY 6 HOURS Active Roflumilast 500 MCG 1 tablet Orally Once a day Active Montelukast Sodium 10 MG TAKE 1 TABLET B Y MOUTH AT BEDTIME Diagnosis Unavailable Oral Active Tylenol 325 MG 1 tablet as needed Orally every 6 hrs As needed Active DuoNeb 0.5-2.5 (3) MG/3ML 3 mL as needed Inhalation twice a day Active Immunizations Vaccine Route Administration Date Status [...] Problem Status W/U Status Risk Notes Problem 2745443 Former smoker (Z87.891) Active confirmed He is highly motivated not to smoke. We discussed a plan to prevent relapse in times of stress and illness. Problem 546392857 Overweight (BMI 25.0-29.9) (E66.3) Active confirmed He is now overweight with a body mass index of 25.68. We discussed his weight loss strategy and I reinforced continued weight loss through diet restricted in fat calories and sodium. Problem Obese class I (finding) (534299605903 107) Obesity (BMI 30.0-34.9) (E66.9) Active confirmed His body mass index is 31 with 243 pounds. We have reviewed his weight loss strategy. We have discussed diet and nutrition. I recommended he lose weight at a rate of one half up of a pound to a diet restricted in fat calories and sodium combined with regular exercise. Problem 07835250 Skin lesion (L98.9) Active confirmed He will call me in 3 weeks. If the lesion does not resolve he will be seen by a carburetor repairer. Problem 03247204 Simple chronic bronchitis (J41.0) Active confirmed Problem 23330032 Chronic obstructive pulmonary disease, unspecified COPD type (J44.9) Active confirmed He will continu e to see the die sinker apprentice regularly. The 6 mm pulmonary nodule will be followed carefully. He is no longer smoking. He will exercise regularly. He will continue to use his nebulizer and his new inhaler. Problem Benign prostatic hypertrophy (957261828) Benign prostatic hypertrophy (N40.0) Active confirmed He recently became unable to sleep and has overflow incontinence with a massively distended bladder. He has been hospitalized. Problem 204134547 Gastroesophageal reflux disease without esophagitis (K21.9) Active confirmed His symptoms ar e well-controlled with current regimen. No change was necessary today. Problem 643174473 Urine retention (R33.9) Active confirmed He was acutely ill and was taken to the emergency room at [facility] across the street from my office he was evaluated and subsequently admitted to the hospital.He was discharged after 6 days and spent 2 months in rehabilitation and is now living at home alone with nursing support. He has an indwelling Mojica catheter in place. He will see urology next week for an outpatient voiding trial. Problem 041128234 History of appendectomy (Z90.49) Active confirmed This was done a t the age of 7. 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 Problem 285738349 Pulmonary nodule less than 6 mm determined by computed tomography of lung (R91.1) Active confirmed The 6 mm left lower lobe nodule is stable on a CT scan done in January of this year. He will have an annual CT scan. Vital Signs Heart Rate 96 /min 08/07/2025 Temperature 97.3 degrees Fahrenheit 08/07/2025 Blood pressure diastolic 80 mm Hg 08/07/2025 Height 74 in 08/07/2025 Blood pressure systolic 134 mm Hg 08/07/2025 Weight 188 lbs 08/07/2025 BMI 24.14 kg/m2 08/07/2025 Encounters Encounter Location Date Provider Diagnosis Thaddeus Oreilly III, MD [address] [place] [address] [place] [phone] 08/07/2025 Thaddeus Oreilly Chronic obstructive pulmonary disease, unspecified COPD type J44.9 Thaddeus Oreilly III, MD [address] [place] [address] [place] [address] 08/13/2024 Thaddeus Oreilly Benign prostatic hypertrophy N40.0 ; Chronic obstructive pulmonary disease, unspecified COPD type J44.9 ; Former smoker Z87.891 ; Gastroesophageal reflux disease without esophagitis K21.9 and Overweight (BMI 25.0-29.9) E66.3 Thaddeus Oreilly III, MD [address] [place] [address] [place] [address] 11/05/2024 Thaddeus Oreilly History of appendect lyndsey Z90.49 ; Chronic obstructive pulmonary disease, unspecified COPD type J44.9 ; Former smoker Z87.891 ; Gastroesophageal reflux disease without esophagitis K21.9 ; Benign prostatic hypertrophy N40.0 and Overweight (BMI 25.0-29.9) E66.3 Thaddeus Oreilly III, MD [address] [place] [address] [place] [address] 02/22/2025 Thaddeus Oreilly Urine retention R33. 9 ; Chronic obstructive pulmonary disease, unspecified COPD type J44.9 ; Gastroesophageal reflux disease without esophagitis K21.9 ; Former smoker Z87.891 ; Overweight (BMI 25.0-29.9) E66.3 and Benign prostatic hypertrophy N40.0 Thaddeus Oreilly III, MD [address] [place] [address] [place] [address] 04/26/2025 Thaddeus Oreilly Chronic obstructive pulmonary disease, unspecified COPD type J44.9 ; Urine retention R33.9 ; Former smoker Z87.891 ; Overweight (BMI 25.0-29.9) E66.3 and Benign prostatic hypertrophy N40.0 Thaddeus Oreilly III, MD [address] [place] [address] [place] [address] 05/21/2025 Thaddeus Oreilly Benign prostatic hypertrophy N40.0 ; Urine retention R33.9 ; Overweight (BMI 25.0-29.9) E66.3 ; Former smoker Z87.891 ; Gastroesophageal reflux disease without esophagitis K21.9 ; Pulmonary nodule less than 6 mm determined by computed tomography of lung R91.1 and Chronic obstructive pulmonary disease, unspecified COPD type J44.9 Thaddeus Oreilly III, MD [address] [place] [address] [place] [address] 06/10/2025 Thaddeus Oreilly Chronic obstructive pulmonary disease, unspecified COPD type J44.9 ; Former smoker Z87.891 ; Gastroesophageal reflux disease without esophagitis K21.9 ; Benign prostatic hypertrophy N40.0 ; Overweight (BMI 25.0-29.9) E66.3 ; Pulmonary nodule less than 6 mm determined by computed tomography of lung R91.1 and Urine retention R33.9 Thaddeus Oreilly III, MD [address] [place] [address] [place] [address] 03/13/2025 Thaddeus Oreilly III, MD [address] [place] [address] [place] [address] 04/22/2025 Thaddeus Oreilly III, MD [address] [place] [address] [place] [address] 04/24/2025 Thaddeus Oreilly III, MD [address] [place] [address] [place] [address] 04/30/2025 Thaddeus Oreilly III, MD [address] [place] [address] [place] [address] 05/01/2025 Thaddeus Oreilly III, MD [address] [place] [address] [place] [address] 06/07/2025 Thaddeus Oreilly III, MD [address] [place] [address] [place] [address] 06/12/2025 Thaddeus Oreilly III, MD [address] [place] [address] [place] [address] 06/12/2025 Thaddeus Oreilly III, MD [address] [place] [address] [place] [address] 07/10/2025 Thaddeus Oreilly Assessments Encounter Date Diagnosis (ICD Code) Assessment Notes T reatment Notes Treatment Clinical Notes 08/07/2025 Chronic obstructive pulmonary disease, unspecified COPD type (ICD-10 - J44.9) 08/13/2024 Chronic obstructive pulmonary disease, unspecified COPD type (ICD-10 - J44.9) He will continue to see the die sinker apprentice regularly. The 6 mm pulmonary nodule will [...] J44.9) He will continue to see the die sinker apprentice regularly. The 6 mm pulmonary nodule will [...] to the emergency room at [facility] across the [place] from my office he was evaluated and subsequently admitted to the hospital. 04/26/2025 Chronic obstructive pulmonary disease, unspecified COPD type (ICD-10 - J44.9) He will continue to see the die sinker apprentice regularly. The 6 mm pulmonary nodule will be followed carefully. He is no longer smoking. He will exercise regularly. He will continue to use his nebulizer and his new inhaler. 04/26/2025 Urine retention (ICD-10 - R33.9) He was acutely ill and was taken to the emergency room at [facility] across the street from my office [...] to the emergency room at [facility] across the street from my office [...] J44.9) He will continue to see the die sinker apprentice regularly. The 6 mm pulmonary nodule will [...] J44.9) He will continue to see the die sinker apprentice regularly. The 6 mm pulmonary nodule will [...] J44.9) He will continue to see the die sinker apprentice regularly. The 6 mm pulmonary nodule will be followed carefully. He is no longer smoking. He will exercise regularly. He will continue to use his nebulizer and his new inhaler. 06/10/2025 Urine retention (ICD-10 - R33.9) He was acutely ill and was taken to the emergency room at [facility] across the street from my office [...] Provider Name:Thaddeus Oreilly , 09/09/2025 02:45:00 PM, [address] [place] [address] [place], [address], Provider Name:Thaddeus Lukas Denilson , 11/06/2025 03:00:00 PM, [address] [place] [address] [place], [address], Insurance Providers Payer Name Payer Address Payer Phone Subscriber Number Group Number Insured Name Patient Relationship to Insured Coverage Start Date Coverage End Date MEDICARE NGS [address] [place] [address] [phone] [id number] CURT TREJO Self - patient is the insured MEDICAID [place] [address] [place], [place] [id number] [phone] [id number] CURT TREJO Self - patient is the insured Medical (General) History Medical History History ICD Code COPD Emphysema Diffusion defect 6 mm pulmonary nodule November 2021 Obesity Benign prostatic hypertrophy Glaucoma Former smoker GERD Surgical History Surgery Date(Month/Year) No history appendectomy age 7 Hospitalization History Reason Date(Month/Year) No history
--- OUTSIDE RECORDS SUMMARY | 2025-08-07 18:02 | XMS_ITS | Encounter Summary ---
Author Organization [facility] Address [address] [place] [address] Care Team Providers Care Software Client Architect Name Role Phone Tyler Castillo MD Primary Care Provider [phone] Encounter Details Date Type Department Care Team (Late st Contact Info) Description 07/19/[address] 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 (current) drug therapy C-REACTIVE PROTEIN Routine 07/19/2025 6: 43 AM EST Other detention (current) drug therapy COMPREHENSIVE METABOLIC PANEL Routine 07/19/2025 6:43 AM EST Other terminal press operator (current) drug therapy documented in this encounter Results * (ABNORMAL) CBC auto differential (07/19/2025 6:43 AM EST) [facility] WBC 16.5(H) 4.8 - 10.8 K/mcL LAB HEMETOLOGY METHOD 07/19/2025 11:27 AM [facility] RBC 4.30(L) 4.50 - 5.50 M/mcL LAB HEMETOLOGY METHOD 07/19/2025 11:27 AM [facility] Hemoglobin 12.7(L) 13.5 - 17.5 g/dL LAB HEMETOLOGY METHOD 07/19/2025 11:27 AM [facility] Hematocrit 40.4(L) 42.0 - 54.0 % LAB HEMETOLOGY METHOD 07/19/2025 11:27 AM [facility] MCV 93.7 79.0 - 98.0 FL LAB HEMETOLOGY METHOD 07/19/2025 11:27 AM [facility] MCH 29.5 27.0 - 32.0 pcg LAB HEMETOLOGY METHOD 07/19/2025 11:27 AM [facility] MCHC 31.4(L) 32.0 - 37.0 g/dL LAB HEMETOLOGY METHOD 07/19/2025 11:27 AM [facility] RDW 14.4 11.0 - 15.0 % LAB HEMETOLOGY METHOD 07/19/2025 11:27 AM [facility] Platelets 344 130 - 400 K/mcL LAB HEMETOLOGY METHOD 07/19/2025 11:27 AM [facility] MPV 8.8 7.0 - 11.0 FL LAB HEMETOLOGY METHOD 07/19/2025 11:27 AM [facility] NRBC 0.0 <1.0 % LAB HEMETOLOGY METHOD 07/19/2025 11:27 AM [facility] NRBC Absolute 0.00 <0.10 K/mcL LAB HEMETOLOGY METHOD 07/19/2025 11:27 AM [facility] Neutrophils Relative 80.5 % LAB HEMETOLOGY METHOD 07/19/2025 11:27 AM [facility] Lymphocytes Relative 8.8 % LAB HEMETOLOGY METHOD 07/19/2025 11:27 AM [facility] Monocytes Relative 7.3 % LAB HEMETOLOGY METHOD 07/19/2025 11:27 AM [facility] Eosinophils Relative 1.5 % LAB HEMETOLOGY METHOD 07/19/2025 11:27 AM [facility] Basophils Relative 0.7 % LAB HEMETOLOGY METHOD 07/19/2025 11:27 AM [facility] Immature Granulocytes Relative 1.2 % LAB HEMETOLOGY METHOD 07/19/2025 11:27 AM [facility] Neutrophils Absolute 13.30(H) 1.50 - 7.00 K/mcL LAB HEMETOLOGY METHOD 07/19/2025 11:27 AM [facility] Lymphocytes Absolute 1.45 1.00 - 5.00 K/mcL LAB HEMETOLOGY METHOD 07/19/2025 11:27 AM [facility] Monocytes Absolute 1.20(H) 0.20 - 1.00 K/mcL LAB HEMETOLOGY METHOD 07/19/2025 11:27 AM [facility] Eosinophils Absolute 0.25 0.00 - 0.50 K/mcL LAB HEMETOLOGY METHOD 07/19/2025 11:27 AM [facility] Basophils Absolute 0.11 0.00 - 0.20 K/mcL LAB HEMETOLOGY METHOD 07/19/2025 11:27 AM [facility] Immature Granulocytes Absolute 0.19(H) 0.00 - 0.03 K/mcL LAB HEMETOLOGY METHOD 07/19/2025 11:27 AM [facility] Blood Venous blood specimen / Unknown 07/19/2025 6:43 AM EST 07/19/2025 11:10 AM EST us Tyler Gabriel MD LAB BLOOD ORDERABLES Final Resu lt [facility] [address] [place] [address], [place] [phone] * (ABNORMAL) Comprehensive metabolic panel (07/19/2025 6:43 AM EST) Sodium 139 133 - 145 mmol/L LAB CHEMISTRY METHOD 07/19/2025 11:59 AM EST [facility] Potassium 4.3 3.5 - 5.5 mmol/L LAB CHEMISTRY METHOD 07/19/2025 11:59 AM [facility] Chloride 104 96 - 110 mmol/L LAB CHEMISTRY METHOD 07/19/2025 11:59 AM [facility] CO2 27 21 - 32 mmol/L LAB CHEMISTRY METHOD 07/19/2025 11:59 AM [facility] Anion Gap 8 3 - 11 LAB CHEMISTRY METHOD 07/19/2025 11:59 AM [facility] Glucose 91 70 - 100 mg/dL LAB CHEMISTRY METHOD 07/19/2025 11:59 AM [facility] BUN 22 5 - 25 mg/dL LAB CHEMISTRY METHOD 07/19/2025 11:59 AM [facility] Creatinine 1.18 0.70 - 1.30 mg/dL LAB CHEMISTRY METHOD 07/19/2025 11:59 AM [facility] eGFR 64 >=60 mL/min/1. 73m2 LAB CHEMISTRY METHOD 07/19/2025 11:59 AM [facility] Comment:Calculation based on the Chronic Kidney Disease Epidemiology Collaboration (CKD-EPI) equation refit without adjustment for race. BUN/Creatinine Ratio 18.6 LAB CHEMISTRY METHOD 07/19/2025 11:59 AM [facility] Calcium 8.6 8.5 - 10.5 mg/dL LAB CHEMISTRY METHOD 07/19/2025 11:59 AM EST [facility] AST (SGOT) 11 10 - 42 unit/L LAB CHEMISTRY METHOD 07/19/2025 11:59 AM [facility] ALT (SGPT) 28 10 - 60 unit/L LAB CHEMISTRY METHOD 07/19/2025 11:59 AM [facility] Alkaline Phosphatase 99 42 - 121 unit/L LAB CHEMISTRY METHOD 07/19/2025 11:59 AM [facility] Total Protein 6.7 6.0 - 8.0 g/dL LAB CHEMISTRY METHOD 07/19/2025 11:59 AM [facility] Albumin 2.6(L) 3.2 - 5.0 g/dL LAB CHEMISTRY METHOD 07/19/2025 11:59 AM [facility] Total Bilirubin 0.2 0.0 - 1.4 mg/dL LAB CHEMISTRY METHOD 07/19/2025 11:59 AM [facility] Blood Venous blood specimen / Unknown Venipuncture / Unknown 07/19/2025 6:43 AM EST 07/19/2025 11:10 AM EST us Tyler Gabriel MD LAB BLOOD ORDERABLES Final Resu lt [facility] [address] [place] [address], * (ABNORMAL) C-reactive protein (07/19/2025 6:43 AM EST) C-Reactive Protein 2.13(H) <=0.50 mg/dL LAB CHEMISTRY METHOD 07/19/2025 11:58 AM EST [facility] Blood Venous blood specimen / Unknown Venipuncture / Unknown 07/19/2025 6:43 AM EST 07/19/2025 11:10 AM EST us Tyler Gabriel MD LAB BLOOD ORDERABLES Final Resu lt [facility] [address] [place] [address], documented in this encounter Visit Diagnoses Diagnosis Other detention (current) drug therapy documented in this encounter Care Teams Software Client Architect Relationship Specialty Start Date End Date Tyler Castillo MD [address] [place] [address] PCP - General Internal Medicine 10/20/15 documented as of this encounter
--- OUTSIDE RECORDS SUMMARY | 2025-08-07 18:02 | XMS_ITS | Encounter Summary ---
Author Organization [facility] Address [address] [place] [address] Care Team Providers Care Property Assessment Monitor Name Role Phone Tyler Castillo MD Primary Care Provider [phone] Encounter Details Date Type Department Care Team (Late st Contact Info) Description 07/18/2025 Lab Requisition [facility] - Main Lab [address] [facility] [place] [address] Ranjana Fonseca MD [address] [place], [place] [phone] Encounter for other general examination Social History [...] Associated Diagnosis Comments CBC WITH AUTO DIFFERENTIAL STAT 07/18/2025 11:30 AM EST Encounter for other general examination CBC AND DIFFERENTIAL STAT 07/18/2025 11:30 AM EST Encounter for other general examination BASIC METABOLIC PANEL STAT 07/18/2025 11:30 AM EST Encounter for other general examination documented in this encounter Results * (ABNORMAL) CBC auto differential (07/18/2025 11:30 AM EST) WBC 20.3(H) 4.8 - 10.8 /[facility] LAB HEMETOLOGY METHOD 07/18/2025 1:18 PM [facility] LAB RBC 4.50 4.50 - 5.50 M/mcL LAB HEMETOLOGY METHOD 07/18/2025 1:18 PM [facility] LAB Hemoglobin 13.3(L) 13.5 - 17.5 g/dL LAB HEMETOLOGY METHOD 07/18/2025 1:18 PM [facility] LAB Hematocrit 41.7(L) 42.0 - 54.0 % LAB HEMETOLOGY METHOD 07/18/2025 1:18 PM [facility] LAB MCV 93.1 79.0 - 98.0 FL LAB HEMETOLOGY METHOD 07/18/2025 1:18 PM [facility] LAB MCH 29.7 27.0 - 32.0 pcg LAB HEMETOLOGY METHOD 07/18/2025 1:18 PM [facility] LAB MCHC 31.9(L) 32.0 - 37.0 g/dL LAB HEMETOLOGY METHOD 07/18/2025 1:18 PM [facility] LAB RDW 14.3 11.0 - 15.0 % LAB HEMETOLOGY METHOD 07/18/2025 1:18 PM [facility] LAB Platelets 386 130 - 400 K/mcL LAB HEMETOLOGY METHOD 07/18/2025 1:18 PM [facility] LAB MPV 8.7 7.0 - 11.0 FL LAB HEMETOLOGY METHOD 07/18/2025 1:18 PM [facility] LAB NRBC 0.0 <1.0 % LAB HEMETOLOGY METHOD 07/18/2025 1:18 PM [facility] LAB NRBC Absolute 0.00 <0.10 K/mcL LAB HEMETOLOGY METHOD 07/18/2025 1:18 PM [facility] LAB Neutrophils Relative 83.6 % LAB HEMETOLOGY METHOD 07/18/2025 1:18 PM [facility] LAB Lymphocytes Relative 7.5 % LAB HEMETOLOGY METHOD 07/18/2025 1:18 PM [facility] LAB Monocytes Relative 5.7 % LAB HEMETOLOGY METHOD 07/18/2025 1:18 PM [facility] LAB Eosinophils Relative 1.0 % LAB HEMETOLOGY METHOD 07/18/2025 1:18 PM [facility] LAB Basophils Relative 0.6 % LAB HEMETOLOGY METHOD 07/18/2025 1:18 PM [facility] LAB Immature Granulocytes Relative 1.6 % LAB HEMETOLOGY METHOD 07/18/2025 1:18 PM [facility] LAB Neutrophils Absolute 16.95(H) 1.50 - 7.00 K/mcL LAB HEMETOLOGY METHOD 07/18/2025 1:18 PM [facility] LAB Lymphocytes Absolute 1.53 1.00 - 5.00 K/mcL LAB HEMETOLOGY METHOD 07/18/2025 1:18 PM [facility] LAB Monocytes Absolute 1.16(H) 0.20 - 1.00 K/mcL LAB HEMETOLOGY METHOD 07/18/2025 1:18 PM [facility] LAB Eosinophils Absolute 0.21 0.00 - 0.50 K/mcL LAB HEMETOLOGY METHOD 07/18/2025 1:18 PM [facility] LAB Basophils Absolute 0.12 0.00 - 0.20 K/mcL LAB HEMETOLOGY METHOD 07/18/2025 1:18 PM [facility] LAB Immature Granulocytes Absolute 0.33(H) 0.00 - 0.03 K/mcL LAB HEMETOLOGY METHOD 07/18/2025 1:18 PM [facility] LAB Blood Venous blood specimen / Unknown Venipuncture / Unknown 07/18/2025 11:30 AM EST 07/18/2025 1:03 PM EST us Ranjana Fonseca MD LAB BLOOD ORDERABLES Final Resu lt [facility] LAB [address] [place] [address], * (ABNORMAL) Basic metabolic panel (07/18/2025 11:30 AM EST) Sodium 138 133 - 145 mmol/L LAB CHEMISTRY METHOD 07/18/2025 1:40 PM EST [facility] LAB Potassium 4.7 3.5 - 5.5 mmol/L LAB CHEMISTRY METHOD 07/18/2025 1:40 PM [facility] LAB Chloride 103 96 - 110 mmol/L LAB CHEMISTRY METHOD 07/18/2025 1:40 PM [facility] LAB CO2 28 21 - 32 mmol/L LAB CHEMISTRY METHOD 07/18/2025 1:40 PM EST [facility] LAB Anion Gap 7 3 - 11 LAB CHEMISTRY METHOD 07/18/2025 1:40 PM [facility] LAB Glucose 83 70 - 100 mg/dL LAB CHEMISTRY METHOD 07/18/2025 1:40 PM [facility] LAB BUN 25 5 - 25 mg/dL LAB CHEMISTRY METHOD 07/18/2025 1:40 PM [facility] LAB Creatinine 1.45(H) 0.70 - 1.30 mg/dL LAB CHEMISTRY METHOD 07/18/2025 1:40 PM [facility] LAB eGFR 50(L) >=60 mL/min/1. 73m2 LAB CHEMISTRY METHOD 07/18/2025 1:40 PM [facility] LAB Comment:Calculation based on the Chronic Kidney Disease Epidemiology Collaboration (CKD-EPI) equation refit without adjustment for race. BUN/Creatinine Ratio 17.2 LAB CHEMISTRY METHOD 07/18/2025 1:40 PM [facility] LAB Calcium 8.9 8.5 - 10.5 mg/dL LAB CHEMISTRY METHOD 07/18/2025 1:40 PM EST [facility] LAB Blood Venous blood specimen / Unknown Venipuncture / Unknown 07/18/2025 11:30 AM EST 07/18/2025 1:03 PM EST us Ranjana Fonseca MD LAB BLOOD ORDERABLES Final Resu lt [facility] [address] [place] [address], documented in this encounter Visit Diagnoses Diagnosis Encounter for other general examination documented in this encounter Care Teams Property Assessment Monitor Relationship Specialty Start Date End Date Tyler Castillo MD [address] [place] [address] PCP - General Internal Medicine 10/20/15 documented as of this encounter
--- OUTSIDE RECORDS SUMMARY | 2025-08-07 18:02 | XMS_ITS | Encounter Summary ---
Author Organization [facility] Address [address] [place] [address] Care Team Providers Care Gathering Worker Name Role Phone Tyler Castillo MD Primary Care Provider [phone] Encounter Details Date Type Department Care Team (Late st Contact Info) Description 03/11/2025 Lab Requisition [facility] - Main Lab [address] [facility] [place] [address] Scott Starr MD [address] [place], [place] [phone] Anemia, unspecified Social History Tobacco Use Types [...] LAB CHEMISTRY METHOD 03/12/2025 11:29 AM EDT [facility] LAB Blood Venous blood specimen / Unknown Venipuncture / Unknown 03/12/2025 7:13 AM EDT 03/12/2025 10:31 AM EDT us Scott Starr MD LAB BLOOD ORDERABLES Final Result Performing Organization Address [facility]/ZIP Co de Phone Number [facility] [address] [place] [address], [place] [phone] * Magnesium (03/12/2025 7:13 AM EDT) [facility] Magnesium 2.3 1.9 - 2.6 mg/dL LAB CHEMISTRY METHOD 03/12/2025 11:29 AM EDT [facility] LAB Comment:Hemolysis present Blood Venous blood specimen / Unknown Venipuncture / Unknown 03/12/2025 7:13 AM EDT 03/12/2025 10:31 AM EDT us Scott Starr MD LAB BLOOD ORDERABLES Final Result Performing Organization Address [facility] de Phone Number [facility] [address] [place] [address], [place] [phone] * Basic metabolic panel (03/12/2025 7:13 AM EDT) [facility] Sodium 136 133 - 145 mmol/L LAB CHEMISTRY METHOD 03/12/2025 11:29 AM EDT [facility] Potassium 4.7 3.5 - 5.5 mmol/L LAB CHEMISTRY METHOD 03/12/2025 11:29 AM EDT [facility] LAB Comment:Hemolysis present Chloride 104 96 - 110 mmol/L LAB CHEMISTRY METHOD 03/12/2025 11:29 AM EDT [facility] CO2 26 21 - 32 mmol/L LAB CHEMISTRY METHOD 03/12/2025 11:29 AM [facility] LAB Anion Gap 6 3 - 11 LAB CHEMISTRY METHOD 03/12/2025 11:29 AM [facility] LAB Glucose 72 70 - 100 mg/dL LAB CHEMISTRY METHOD 03/12/2025 11:29 AM [facility] LAB BUN 19 5 - 25 mg/dL LAB CHEMISTRY METHOD 03/12/2025 11:29 AM [facility] LAB Creatinine 1.02 0.70 - 1.30 mg/dL LAB CHEMISTRY METHOD 03/12/2025 11:29 AM [facility] LAB eGFR 76 >=60 mL/min/1. 73m2 LAB CHEMISTRY METHOD 03/12/2025 11:29 AM [facility] LAB Comment:Calculation based on the Chronic Kidney Disease Epidemiology Collaboration (CKD-EPI) equation refit without adjustment for race. BUN/Creatinine Ratio 18.6 LAB CHEMISTRY METHOD 03/12/2025 11:29 AM [facility] LAB Calcium 8.9 8.5 - 10.5 mg/dL LAB CHEMISTRY METHOD 03/12/2025 11:29 AM [facility] Blood Venous blood specimen / Unknown Venipuncture / Unknown 03/12/2025 7:13 AM EDT 03/12/2025 10:31 AM EDT Scott Starr MD LAB BLOOD ORDERABLES Final Result [facility] [address] [place] [address], * Complete blood count (03/12/2025 7:13 AM EDT) WBC 9.0 4.8 - 10.8 K/mcL LAB HEMETOLOGY METHOD 03/12/2025 11:08 AM [facility] LAB RBC 4.70 4.50 - 5.50 M/mcL LAB HEMETOLOGY METHOD 03/12/2025 11:08 AM [facility] LAB Hemoglobin 14.1 13.5 - 17.5 g/dL LAB HEMETOLOGY METHOD 03/12/2025 11:08 AM [facility] LAB Hematocrit 43.1 42.0 - 54.0 % LAB HEMETOLOGY METHOD 03/12/2025 11:08 AM [facility] LAB MCV 92.3 79.0 - 98.0 FL LAB HEMETOLOGY METHOD 03/12/2025 11:08 AM [facility] LAB MCH 30.2 27.0 - 32.0 pcg LAB HEMETOLOGY METHOD 03/12/2025 11:08 AM [facility] LAB MCHC 32.7 32.0 - 37.0 g/dL LAB HEMETOLOGY METHOD 03/12/2025 11:08 AM [facility] LAB RDW 13.4 11.0 - 15.0 % LAB HEMETOLOGY METHOD 03/12/2025 11:08 AM [facility] LAB Platelets 339 130 - 400 K/mcL LAB HEMETOLOGY METHOD 03/12/2025 11:08 AM [facility] LAB MPV 9.2 7.0 - 11.0 FL LAB HEMETOLOGY METHOD 03/12/2025 11:08 AM [facility] LAB NRBC 0.0 <1.0 % LAB HEMETOLOGY METHOD 03/12/2025 11:08 AM [facility] LAB NRBC Absolute 0.00 <0.10 K/mcL LAB HEMETOLOGY METHOD 03/12/2025 11:08 AM [facility] Blood Venous blood specimen / Unknown Venipuncture / Unknown 03/12/2025 7:13 AM EDT 03/12/2025 10:31 AM EDT Scott Starr MD LAB BLOOD ORDERABLES Final Result [facility] [address] [place] [address], documented in this encounter Visit Diagnoses Diagnosis Anemia, unspecified documented in this encounter Additional Health Concerns Infection Onset Date Last Indicated Resolved Time C. difficile Rule-Out 04/04/2025 04/04/20252024 12:46 PM EDT documented as of this encounter Care Teams Gathering Worker Relationship Specialty Start Date End Date Tyler Castillo MD [address] [place] [address] PCP - General Internal Medicine 10/20/15 documented as of this encounter
--- OUTSIDE RECORDS SUMMARY | 2025-08-07 18:02 | XMS_ITS | Encounter Summary ---
Author Organization [facility] Address [address] [place] [address] Care Team Providers Care Neighborhood Worker Name Role Phone Tyler Castillo MD Primary Care Provider [phone] Encounter Details Date Type Department Care Team (Late st Contact Info) Description 03/05/2025 Lab Requisition [facility] - Main Lab [address] [facility] [place] [address] Scott Starr MD [address] [place], [place] [phone] Anemia, unspecified Social History Tobacco Use Types [...] LAB CHEMISTRY METHOD 03/05/2025 11:44 AM EDT [facility] LAB Blood Venous blood specimen / Unknown Venipuncture / Unknown 03/05/2025 7:35 AM EDT 03/05/2025 9:55 AM EDT us Scott Starr MD LAB BLOOD ORDERABLES Final Result [facility] [address] [place] [address], [place] [phone] * Magnesium (03/05/2025 7:35 AM EDT) [facility] Magnesium 2.3 1.9 - 2.6 mg/dL LAB CHEMISTRY METHOD 03/05/2025 11:44 AM EDT [facility] LAB Blood Venous blood specimen / Unknown Venipuncture / Unknown 03/05/2025 7:35 AM EDT 03/05/2025 9:55 AM EDT us Scott Starr MD LAB BLOOD ORDERABLES Final Result Performing Organization Address City/[facility]/ZIP Co de Phone Number [facility] [address] [place] [address], [place] [phone] * (ABNORMAL) Comprehensive metabolic panel (03/05/2025 7:35 AM EDT) Pathologist [facility] Sodium 139 133 - 145 mmol/L LAB CHEMISTRY METHOD 03/05/2025 12:05 PM EDT [facility] Potassium 4.1 3.5 - 5.5 mmol/L LAB CHEMISTRY METHOD 03/05/2025 12:05 PM EDT [facility] Chloride 105 96 - 110 mmol/L LAB CHEMISTRY METHOD 03/05/2025 12:05 PM EDT [facility] CO2 24 21 - 32 mmol/L LAB CHEMISTRY METHOD 03/05/2025 12:05 PM [facility] Anion Gap 10 3 - 11 LAB CHEMISTRY METHOD 03/05/2025 12:05 PM [facility] Glucose 77 70 - 100 mg/dL LAB CHEMISTRY METHOD 03/05/2025 12:05 PM [facility] BUN 21 5 - 25 mg/dL LAB CHEMISTRY METHOD 03/05/2025 12:05 PM [facility] Creatinine 1.04 0.70 - 1.30 mg/dL LAB CHEMISTRY METHOD 03/05/2025 12:05 PM [facility] LAB eGFR 74 >=60 mL/min/1. 73m2 LAB CHEMISTRY METHOD 03/05/2025 12:05 PM [facility] LAB Comment:Calculation based on the Chronic Kidney Disease Epidemiology Collaboration (CKD-EPI) equation refit without adjustment for race. BUN/Creatinine Ratio 20.2 LAB CHEMISTRY METHOD 03/05/2025 12:05 PM [facility] Calcium 9.0 8.5 - 10.5 mg/dL LAB CHEMISTRY METHOD 03/05/2025 12:05 PM [facility] AST (SGOT) 15 10 - 42 unit/L LAB CHEMISTRY METHOD 03/05/2025 12:05 [facility] LAB ALT (SGPT) 27 10 - 60 unit/L LAB CHEMISTRY METHOD 03/05/2025 12:05 PM [facility] Alkaline Phosphatase 89 42 - 121 unit/L LAB CHEMISTRY METHOD 03/05/2025 12:05 PM [facility] Total Protein 6.6 6.0 - 8.0 g/dL LAB CHEMISTRY METHOD 03/05/2025 12:05 PM [facility] Albumin 3.1(L) 3.2 - 5.0 g/dL LAB CHEMISTRY METHOD 03/05/2025 12:05 PM [facility] Total Bilirubin 0.4 0.0 - 1.4 mg/dL LAB CHEMISTRY METHOD 03/05/2025 12:05 PM T [facility] Blood Venous blood specimen / Unknown Venipuncture / Unknown 03/05/2025 7:35 AM EDT 03/05/2025 9:55 AM EDT Scott Starr MD LAB BLOOD ORDERABLES Final Result [facility] [address] [place] [address], * Complete blood count (03/05/2025 7:35 AM EDT) WBC 8.7 4.8 - 10.8 K/mcL LAB HEMETOLOGY METHOD 03/05/2025 11:06 AM [facility] RBC 4.70 4.50 - 5.50 M/mcL LAB HEMETOLOGY METHOD 03/05/2025 11:06 AM [facility] Hemoglobin 14.0 13.5 - 17.5 g/dL LAB HEMETOLOGY METHOD 03/05/2025 11:06 AM [facility] LAB Hematocrit 42.8 42.0 - 54.0 % LAB HEMETOLOGY METHOD 03/05/2025 11:06 AM [facility] LAB MCV 90.7 79.0 - 98.0 FL LAB HEMETOLOGY METHOD 03/05/2025 11:06 AM [facility] MCH 29.7 27.0 - 32.0 pcg LAB HEMETOLOGY METHOD 03/05/2025 11:06 AM [facility] LAB MCHC 32.7 32.0 - 37.0 g/dL LAB HEMETOLOGY METHOD 03/05/2025 11:06 AM [facility] RDW 12.9 11.0 - 15.0 % LAB HEMETOLOGY METHOD 03/05/2025 11:06 AM [facility] Platelets 383 130 - 400 K/mcL LAB HEMETOLOGY METHOD 03/05/2025 11:06 AM EDT [facility] MPV 9.0 7.0 - 11.0 FL LAB HEMETOLOGY METHOD 03/05/2025 11:06 AM EDT [facility] NRBC 0.0 <1.0 % LAB HEMETOLOGY METHOD 03/05/2025 11:06 AM EDT [facility] NRBC Absolute 0.00 <0.10 K/mcL LAB HEMETOLOGY METHOD 03/05/2025 11:06 AM EDT [facility] Blood Venous blood specimen / Unknown Venipuncture / Unknown 03/05/2025 7:35 AM EDT 03/05/2025 9:55 AM EDT Scott Starr MD LAB BLOOD ORDERABLES Final Result [facility] [address] [place] [address], documented in this encounter Visit Diagnoses Diagnosis Anemia, unspecified documented in this encounter Additional Health Concerns Infection Onset Date Last Indicated Resolved Time C. difficile Rule-Out 04/04/2025 04/04/20252024 12:46 PM EDT documented as of this encounter Care Teams Neighborhood Worker Relationship Specialty Start Date End Date Tyler Castillo MD [address] [place] [address] PCP - General Internal Medicine 10/20/15 documented as of this encounter
--- OUTSIDE RECORDS SUMMARY | 2025-08-07 18:02 | XMS_ITS | Encounter Summary ---
Author Organization [facility] Address [address] [place] [address] Care Team Providers Care Central Supply Supervisor Name Role Phone Tyler Castillo MD Primary Care Provider Encounter Details Date Type Department Care Team (Late st Contact Info) Description 07/17/2025 Lab Requisition [facility] - Main Lab [address] [facility] [place] [address] Ranjana Fonseca MD [address] [place], [place] [id number] Social History Tobacco Use Types Packs/Day Years [...] as of this encounter Plan of Treatment Scheduled Orders Name Type Priority Associated Diagnoses Orde r Schedule Urinalysis with reflex microscopic and culture Lab Routine Ordered: 07/17/2025 documented as of this encounter Visit Diagnoses Not on filedocumented in this encounter Care Teams Central Supply Supervisor Relationship Specialty Start Date End Date Tyler Castillo MD [address] [place] [address] PCP - General Internal Medicine 10/20/15 documented as of this encounter
--- OUTSIDE RECORDS SUMMARY | 2025-08-07 18:02 | XMS_ITS | Encounter Summary ---
Author Organization [facility] Address [address] [place] [address] Care Team Providers Care Orchid Hand Name Role Phone Tyler Castillo MD Primary Care Provider [phone] Encounter Details Date Type Department Care Team (Late st Contact Info) Description 07/22/2025 Lab Requisition [facility] - Main Lab [address] [facility] [place] [address] Sally Jackson PA [address] [place] [address] Encounter for other general examination Social History [...] encounter Results * (ABNORMAL) CBC auto differential (07/22/2025 5:43 AM EST) WBC 12.6(H) 4.8 - 10.8 K/[facility] LAB HEMETOLOGY METHOD 07/22/2025 11:29 AM [facility] LAB RBC 4.30(L) 4.50 - 5.50 M/mcL LAB HEMETOLOGY METHOD 07/22/2025 11:29 AM [facility] LAB Hemoglobin 12.7(L) 13.5 - 17.5 g/dL LAB HEMETOLOGY METHOD 07/22/2025 11:29 AM [facility] LAB Hematocrit 38.9(L) 42.0 - 54.0 % LAB HEMETOLOGY METHOD 07/22/2025 11:29 AM [facility] LAB MCV 91.1 79.0 - 98.0 FL LAB HEMETOLOGY METHOD 07/22/2025 11:29 AM [facility] LAB MCH 29.7 27.0 - 32.0 pcg LAB HEMETOLOGY METHOD 07/22/2025 11:29 AM [facility] LAB MCHC 32.6 32.0 - 37.0 g/dL LAB HEMETOLOGY METHOD 07/22/2025 11:29 AM [facility] LAB RDW 14.5 11.0 - 15.0 % LAB HEMETOLOGY METHOD 07/22/2025 11:29 AM [facility] LAB Platelets 392 130 - 400 K/mcL LAB HEMETOLOGY METHOD 07/22/2025 11:29 AM [facility] LAB MPV 8.9 7.0 - 11.0 FL LAB HEMETOLOGY METHOD 07/22/2025 11:29 AM [facility] LAB NRBC 0.0 <1.0 % LAB HEMETOLOGY METHOD 07/22/2025 11:29 AM [facility] LAB NRBC Absolute 0.00 <0.10 K/mcL LAB HEMETOLOGY METHOD 07/22/2025 11:29 AM [facility] LAB Neutrophils Relative 77.5 % LAB HEMETOLOGY METHOD 07/22/2025 11:29 AM [facility] LAB Lymphocytes Relative 9.9 % LAB HEMETOLOGY METHOD 07/22/2025 11:29 AM [facility] Monocytes Relative 10.3 % LAB HEMETOLOGY METHOD 07/22/2025 11:29 AM [facility] LAB Eosinophils Relative 1.1 % LAB HEMETOLOGY METHOD 07/22/2025 11:29 AM [facility] Basophils Relative 0.6 % LAB HEMETOLOGY METHOD 07/22/2025 11:29 AM [facility] Immature Granulocytes Relative 0.6 % LAB HEMETOLOGY METHOD 07/22/2025 11:29 AM [facility] LAB Neutrophils Absolute 9.72(H) 1.50 - 7.00 K/mcL LAB HEMETOLOGY METHOD 07/22/2025 11:29 AM [facility] LAB Lymphocytes Absolute 1.24 1.00 - 5.00 K/mcL LAB HEMETOLOGY METHOD 07/22/2025 11:29 AM [facility] LAB Monocytes Absolute 1.29(H) 0.20 - 1.00 K/mcL LAB HEMETOLOGY METHOD 07/22/2025 11:29 AM [facility] LAB Eosinophils Absolute 0.14 0.00 - 0.50 K/mcL LAB HEMETOLOGY METHOD 07/22/2025 11:29 AM [facility] LAB Basophils Absolute 0.08 0.00 - 0.20 K/mcL LAB HEMETOLOGY METHOD 07/22/2025 11:29 AM [facility] LAB Immature Granulocytes Absolute 0.08(H) 0.00 - 0.03 K/mcL LAB HEMETOLOGY METHOD 07/22/2025 11:29 AM [facility] LAB Blood Venous blood specimen / Unknown Venipuncture / Unknown 07/22/2025 5:43 AM EST 07/22/2025 10:31 AM EST Sally AGUIRRE LAB BLOOD ORDERABLES Final Resul t [facility] [address] [place] [address], * Basic metabolic panel (07/22/2025 5:43 AM EST) Sodium 138 133 - 145 mmol/L LAB CHEMISTRY METHOD 07/22/2025 12:49 PM [facility] LAB Potassium 4.6 3.5 - 5.5 mmol/L LAB CHEMISTRY METHOD 07/22/2025 12:49 PM [facility] LAB Chloride 105 96 - 110 mmol/L LAB CHEMISTRY METHOD 07/22/2025 12:49 PM [facility] LAB CO2 26 21 - 32 mmol/L LAB CHEMISTRY METHOD 07/22/2025 12:49 PM [facility] LAB Anion Gap 7 3 - 11 LAB CHEMISTRY METHOD 07/22/2025 12:49 PM [facility] LAB Glucose 73 70 - 100 mg/dL LAB CHEMISTRY METHOD 07/22/2025 12:49 PM [facility] BUN 24 5 - 25 mg/dL LAB CHEMISTRY METHOD 07/22/2025 12:49 PM [facility] LAB Creatinine 1.11 0.70 - 1.30 mg/dL LAB CHEMISTRY METHOD 07/22/2025 12:49 PM [facility] LAB eGFR 69 >=60 mL/min/1. 73m2 LAB CHEMISTRY METHOD 07/22/2025 12:49 PM [facility] LAB Comment:Calculation based on the Chronic Kidney Disease Epidemiology Collaboration (CKD-EPI) equation refit without adjustment for race. BUN/Creatinine Ratio 21.6 LAB CHEMISTRY METHOD 07/22/2025 12:49 PM [facility] Calcium 8.5 8.5 - 10.5 mg/dL LAB CHEMISTRY METHOD 07/22/2025 12:49 PM [facility] LAB Blood Venous blood specimen / Unknown Venipuncture / Unknown 07/22/2025 5:43 AM EST 07/22/2025 10:31 AM EST us Sally AGUIRRE LAB BLOOD ORDERABLES Final Resul t [facility] [address] [place] [address], documented in this encounter Visit Diagnoses Diagnosis Encounter for other general examination documented in this encounter Care Teams Orchid Hand Relationship Specialty Start Date End Date Tyler Castillo MD [address] [place] [address] PCP - General Internal Medicine 10/20/15 documented as of this encounter
--- OUTSIDE RECORDS SUMMARY | 2025-08-07 18:02 | XMS_ITS | Encounter Summary ---
Author Organization [facility] Address [address] [place] [address] Care Team Providers Care Dinkey Engine Firer/Fireman Name Role Phone Tyler Castillo MD Primary Care Provider [phone] Encounter Details Date Type Department Care Team (Late st Contact Info) Description 07/18/2025 Lab Requisition [facility] - Main Lab [address] [facility] [place] [address] Ranjana Fonseca MD [address] [place], [place] [id number] Encounter for other general examination Social History [...] PM EST Encounter for other general examination documented in this encounter Results * Culture urine (07/17/2025 5:52 PM EST) Pathologist [facility] Culture, Urine No growth 07/19/2025 10:05 AM [facility] Urine Urine specimen obtained by clean catch procedure / Unknown Non-blood Collection / Unknown 07/17/2025 5:52 PM EST 07/18/2025 6:59 AM EST Ranjana Fonseca MD LAB MICROBIOLOGY - [facility] [employer]HA CLEANING Final Result [facility] [address] [place] [address], [place] [phone] * (ABNORMAL) Urinalysis with reflex microscopic and culture (07/17/2025 5:52 PM EST) [facility] Specific Alpha Urine 1.016 1.003 - 1.030 LAB URINALYSIS - AUTOMATED METHOD 07/18/2025 6:59 AM [facility] pH, Urine 6.0 5.0 - 8.0 pH LAB URINALYSIS - AUTOMATED METHOD 07/18/2025 6:59 AM [facility] Leukocytes, Urine Moderate(A) Negative LAB URINALYSIS - AUTOMATED METHOD 07/18/2025 6:59 AM [facility] Nitrite, Urine Negative Negative LAB URINALYSIS - AUTOMATED METHOD 07/18/2025 6:59 AM [facility] Protein, Urine 100(A) <=Trace mg/dL LAB URINALYSIS - AUTOMATED METHOD 07/18/2025 6:59 AM [facility] Glucose, Urine Negative Negative mg/dL LAB URINALYSIS - AUTOMATED METHOD 07/18/2025 6:59 AM [facility] Ketones, Urine Negative Negative mg/dL LAB URINALYSIS - AUTOMATED METHOD 07/18/2025 6:59 AM [facility] Urobilinogen , Urine 0.2 0.2 - 1.0 mg/dL LAB URINALYSIS - AUTOMATED METHOD 07/18/2025 6:59 AM [facility] Bilirubin, Urine Negative Negative LAB URINALYSIS - AUTOMATED METHOD 07/18/2025 6:59 AM [facility] Blood, Urine Trace(A) Negative LAB URINALYSIS - AUTOMATED METHOD 07/18/2025 6:59 AM [facility] RBC, Urine 10(H) 0 - 4 /HPF 07/18/2025 6:59 AM [facility] WBC, Urine >100(H) 0 - 4 /HPF 07/18/2025 6:59 AM [facility] Squamous Epithelial, Urine 10 0 - 60 /LPF 07/18/2025 6:59 AM [facility] Bacteria, Urine Many(A) Negative /HPF 07/18/2025 6:59 AM [facility] Hyaline Casts, Urine 3 0 - 3 /LPF 07/18/2025 6:59 AM [facility] Urine Urine specimen obtained by clean catch procedure / Unknown Non-blood Collection / Unknown 07/17/2025 5:52 PM EST 07/18/2025 6:43 AM EST us Ranjana Fonseca MD LAB URINE ORDERABLES Final Resu lt [facility] [address] [place] [address], * [place] urine culture tube (07/17/2025 5:52 PM EST) Extra Tube Hold for add-ons. 07/18/2025 8:01 AM [facility] Comment:Auto resulted. Urine Urine specimen obtained by clean catch procedure / Unknown Non-blood Collection / Unknown 07/17/2025 5:52 PM EST 07/18/2025 6:43 AM EST us Ranjana Fonseca MD LAB URINE ORDERABLES Final Resu lt [facility] [address] [place] [address], documented in this encounter Visit Diagnoses Diagnosis Encounter for other general examination documented in this encounter Care Teams Dinkey Engine Firer/Fireman Relationship Specialty Start Date End Date Tyler Castillo MD [address] [place] [address] PCP - General Internal Medicine 10/20/15 documented as of this encounter
--- OUTSIDE RECORDS SUMMARY | 2025-08-07 18:03 | XMS_ITS | Encounter Summary ---
Author Organization [facility] Address [address] [place] [address] Care Team Providers Care Vp Ancillary Name Role Phone Tyler Castillo MD Primary Care Provider [phone] Encounter Details Date Type Department Care Team (Late st Contact Info) Description 07/17/2025 Lab Requisition [facility] - Main Lab [address] [place] [address] Sophia Valdes PA [address] [place] [address] Encounter for other general examination Social History [...] Diagnosis Comments CBC WITH AUTO DIFFERENTIAL Routine 07/17/2025 6:04 AM EST Encounter for other general examination CBC AND DIFFERENTIAL Routine 07/17/2025 6:04 AM EST Encounter for other general examination documented in this encounter Results * (ABNORMAL) CBC auto differential (07/17/2025 6:04 AM EST) WBC 17.9(H) 4.8 - 10.8 K/[facility] LAB HEMETOLOGY METHOD 07/17/2025 11:18 AM EST [facility] RBC 4.10(L) 4.50 - 5.50 M/[facility] LAB HEMETOLOGY METHOD 07/17/2025 11:18 AM [facility] Hemoglobin 12.2(L) 13.5 - 17.5 g/dL LAB HEMETOLOGY METHOD 07/17/2025 11:18 AM [facility] Hematocrit 37.9(L) 42.0 - 54.0 % LAB HEMETOLOGY METHOD 07/17/2025 11:18 AM [facility] MCV 92.4 79.0 - 98.0 FL LAB HEMETOLOGY METHOD 07/17/2025 11:18 AM [facility] MCH 29.8 27.0 - 32.0 pcg LAB HEMETOLOGY METHOD 07/17/2025 11:18 AM [facility] MCHC 32.2 32.0 - 37.0 g/dL LAB HEMETOLOGY METHOD 07/17/2025 11:18 AM [facility] RDW 14.6 11.0 - 15.0 % LAB HEMETOLOGY METHOD 07/17/2025 11:18 AM [facility] Platelets 351 130 - 400 K/mcL LAB HEMETOLOGY METHOD 07/17/2025 11:18 AM [facility] MPV 8.9 7.0 - 11.0 FL LAB HEMETOLOGY METHOD 07/17/2025 11:18 AM [facility] NRBC 0.0 <1.0 % LAB HEMETOLOGY METHOD 07/17/2025 11:18 AM [facility] NRBC Absolute 0.00 <0.10 K/mcL LAB HEMETOLOGY METHOD 07/17/2025 11:18 AM [facility] Neutrophils Relative 79.1 % LAB HEMETOLOGY METHOD 07/17/2025 11:18 AM [facility] Lymphocytes Relative 9.5 % LAB HEMETOLOGY METHOD 07/17/2025 11:18 AM [facility] Monocytes Relative 5.4 % LAB HEMETOLOGY METHOD 07/17/2025 11:18 AM EST [facility] Eosinophils Relative 1.8 % LAB HEMETOLOGY METHOD 07/17/2025 11:18 AM [facility] Basophils Relative 0.7 % LAB HEMETOLOGY METHOD 07/17/2025 11:18 AM [facility] Immature Granulocytes Relative 3.5 % LAB HEMETOLOGY METHOD 07/17/2025 11:18 AM [facility] Neutrophils Absolute 14.14(H) 1.50 - 7.00 K/mcL LAB HEMETOLOGY METHOD 07/17/2025 11:18 AM [facility] Lymphocytes Absolute 1.70 1.00 - 5.00 K/mcL LAB HEMETOLOGY METHOD 07/17/2025 11:18 AM [facility] Monocytes Absolute 0.97 0.20 - 1.00 K/mcL LAB HEMETOLOGY METHOD 07/17/2025 11:18 AM EST [facility] Eosinophils Absolute 0.32 0.00 - 0.50 K/mcL LAB HEMETOLOGY METHOD 07/17/2025 11:18 AM [facility] Basophils Absolute 0.12 0.00 - 0.20 K/mcL LAB HEMETOLOGY METHOD 07/17/2025 11:18 AM [facility] Immature Granulocytes Absolute 0.62(H) 0.00 - 0.03 K/mcL LAB HEMETOLOGY METHOD 07/17/2025 11:18 AM [facility] Blood Venous blood specimen / Unknown Venipuncture / Unknown 07/17/2025 6:04 AM EST 07/17/2025 10:59 AM EST us Sophia AGUIRRE LAB BLOOD ORDERABLES Final Re sult [facility] [address] [place], [place] [address] [phone] documented in this encounter Visit Diagnoses Diagnosis Encounter for other general examination documented in this encounter Care Teams Vp Ancillary Relationship Specialty Start Date End Date Tyler Castillo MD [address] [place] [address] PCP - General Internal Medicine 10/20/15 documented as of this encounter
--- OUTSIDE RECORDS SUMMARY | 2025-08-07 18:03 | XMS_ITS | Encounter Summary ---
Author Organization [facility] Address [address] [place] [address] Care Team Providers Care Assistant In Nursing Name Role Phone Tyler Castillo MD Primary Care Provider [phone] Encounter Details Date Type Department Care Team (Late st Contact Info) Description 07/16/2025 Lab Requisition [facility] - Main Lab [address] [facility] [place] [address] Marina Malik MD [address] [phone] Encounter for other general examination Social History [...] Associated Diagnosis Comments COMPLETE BLOOD COUNT Routine 07/16/2025 9:23 AM EST Encounter for other general examination MAGNESIUM Routine 07/16/2025 9:23 AM EST Encounter for other general examination BASIC METABOLIC PANEL Routine 07/16/2025 9:23 AM EST Encounter for other general examination documented in this encounter Results * (ABNORMAL) Magnesium (07/16/2025 9:23 AM EST) Magnesium 1.7(L) 1.9 - 2.6 mg/dL LAB CHEMISTRY METHOD 07/16/2025 11:32 AM [facility] Blood Venous blood specimen / Unknown Venipuncture / Unknown 07/16/2025 9:23 AM EST 07/16/2025 10:04 AM EST us Marina Malik MD LAB BLOOD ORDERABLES Fin al Result [facility] [address] [place] [address], * (ABNORMAL) Basic metabolic panel (07/16/2025 9:23 AM EST) Sodium 139 133 - 145 mmol/L LAB CHEMISTRY METHOD 07/16/2025 11:35 AM [facility] Potassium 4.1 3.5 - 5.5 mmol/L LAB CHEMISTRY METHOD 07/16/2025 11:35 AM [facility] Chloride 105 96 - 110 mmol/L LAB CHEMISTRY METHOD 07/16/2025 11:35 AM [facility] CO2 24 21 - 32 mmol/L LAB CHEMISTRY METHOD 07/16/2025 11:35 AM [facility] Anion Gap 10 3 - 11 LAB CHEMISTRY METHOD 07/16/2025 11:35 AM [facility] Glucose 98 70 - 100 mg/dL LAB CHEMISTRY METHOD 07/16/2025 11:35 AM [facility] BUN 34(H) 5 - 25 mg/dL LAB CHEMISTRY METHOD 07/16/2025 11:35 AM [facility] Creatinine 1.31(H) 0.70 - 1.30 mg/dL LAB CHEMISTRY METHOD 07/16/2025 11:35 AM [facility] eGFR 56(L) >=60 mL/min/1. 73m2 LAB CHEMISTRY METHOD 07/16/2025 11:35 AM [facility] Comment:Calculation based on the Chronic Kidney Disease Epidemiology Collaboration (CKD-EPI) equation refit without adjustment for race. BUN/Creatinine Ratio 26.0 LAB CHEMISTRY METHOD 07/16/2025 11:35 AM [facility] Calcium 8.3(L) 8.5 - 10.5 mg/dL LAB CHEMISTRY METHOD 07/16/2025 11:35 AM [facility] Blood Venous blood specimen / Unknown Venipuncture / Unknown 07/16/2025 9:23 AM EST 07/16/2025 10:04 AM EST us Marina Malik MD LAB BLOOD ORDERABLES Fin al Result [facility] [address] [place] [address], * (ABNORMAL) Complete blood count (07/16/2025 9:23 AM EST) WBC 20.2(H) 4.8 - 10.8 K/mcL LAB HEMETOLOGY METHOD 07/16/2025 10:45 AM [facility] RBC 4.40(L) 4.50 - 5.50 M/mcL LAB HEMETOLOGY METHOD 07/16/2025 10:45 AM [facility] Hemoglobin 13.1(L) 13.5 - 17.5 g/dL LAB HEMETOLOGY METHOD 07/16/2025 10:45 AM [facility] Hematocrit 40.7(L) 42.0 - 54.0 % LAB HEMETOLOGY METHOD 07/16/2025 10:45 AM [facility] MCV 91.7 79.0 - 98.0 FL LAB HEMETOLOGY METHOD 07/16/2025 10:45 AM [facility] MCH 29.5 27.0 - 32.0 pcg LAB HEMETOLOGY METHOD 07/16/2025 10:45 AM [facility] MCHC 32.2 32.0 - 37.0 g/dL LAB HEMETOLOGY METHOD 07/16/2025 10:45 AM EST [facility] RDW 14.6 11.0 - 15.0 % LAB HEMETOLOGY METHOD 07/16/2025 10:45 AM [facility] Platelets 376 130 - 400 K/mcL LAB HEMETOLOGY METHOD 07/16/2025 10:45 AM EST [facility] MPV 8.9 7.0 - 11.0 FL LAB HEMETOLOGY METHOD 07/16/2025 10:45 AM EST [facility] NRBC 0.0 <1.0 % LAB HEMETOLOGY METHOD 07/16/2025 10:45 AM [facility] NRBC Absolute 0.00 <0.10 K/mcL LAB HEMETOLOGY METHOD 07/16/2025 10:45 AM [facility] Blood Venous blood specimen / Unknown Venipuncture / Unknown 07/16/2025 9:23 AM EST 07/16/2025 10:04 AM EST us Marina Malik MD LAB BLOOD ORDERABLES Fin al Result [facility] [address] [place] [address], documented in this encounter Visit Diagnoses Diagnosis Encounter for other general examination documented in this encounter Care Teams Assistant In Nursing Relationship Specialty Start Date End Date Tyler Castillo MD [address] [place] [address] PCP - General Internal Medicine 10/20/15 documented as of this encounter
--- OUTSIDE RECORDS SUMMARY | 2025-09-21 19:00 | XMS_ITS | Clinical Summary ---
Author Organization Unknown Care Team Providers Care Steward[employer] Name Role Phone NATALIE BELTRAN, DYLAN Unavailable Unavailable MARIO ANDRE, TAY Unavailable Unavailable Payers Payer Name Policy Type Policy Number Effective Date Expira tion Date MEDICARE - [place]GS [place] - PDGM [id number] Problems Condition Name Condition Details Condition Category Status Onset Date Resolution Date Last Treatment Date Treating Clinician Comments CHRONIC OBSTRUCTIVE PULMONARY DISEASE, UNSPECIFIED Active 2024-09 0-06 00:00: 00 Allergies, Adverse Reactions, Alerts Allergy Name Allergy Type Status Severity Reaction(s) Onset Date Inactive Date Treating Clinician Comments NKA Propensity to adverse reactions Active 2025-07 11:12:5 6 Medications Ordered Medication Name Filled Medication Name Start Date Stop Date Current Medication? Ordering Clinician Indication Dosage Frequency Signature (SIG) Comments Components acetaminoph en 325 mg tablet 2024-09 0-08 00:00: 00 07-22 23:59 :00 No [id number] 1 tablet EVERY 6-8 HOURS NEEDED 1 tablet EVERY 6-8 HOURS NEEDED (route: oral) Med Classific ation: Analgesic , Anti-infl ammatory or Antipyret ic alfuzosin ER 10 mg tablet,exte nded release 24 hr 2024-09 0-08 00:00: 00 07-22 23:59 :00 No [id number] 1 tablet BEDTIME 1 tablet BEDTIME (route: oral) Med Classific ation: Genitouri nary Therapy finasteride 5 mg tablet 2024-09 0-08 00:00: 00 07-22 23:59 :00 No [id number] 1 tablet BEDTIME 1 tablet BEDTIME (route: oral) Med Classific ation: Genitouri nary Therapy montelukast 10 mg tablet 2024-09 0-08 00:00: 00 07-22 23:59 :00 No [id number] 1 tablet BEDTIME 1 tablet BEDTIME (route: oral) Med Classific ation: Respirato ry Therapy Agents omeprazole 20 mg capsule,del ayed release 2024-09 0-08 00:00: 00 07-22 23:59 :00 No [id number] 1 capsule EVERY AM 1 capsule EVERY AM (route: oral) Med Classific ation: Gastroint estinal Therapy Agents budesonide 0.5 mg/2 mL suspension for nebulizatio n 2024-09 0-14 00:00: 00 07-22 23:59 :00 No [id number] 2 mL 2 TIMES DAILY 2 mL 2 TIMES DAILY (route: inhalation ) Med Classific ation: Respirato ry Therapy Agents albuterol sulfate 2.5 mg/3 mL (0.083 %) solution for nebulizatio n 2024-09 014 00:00: 00 07-22 23:59 :00 No [id number] 3 mL 2 TIMES DAILY 3 mL 2 TIMES DAILY (route: inhalation ) Med Classific ation: Respirato ry Therapy Agents albuterol sulfate HFA 90 mcg/actuati on aerosol inhaler 2024-09 00:00: 00 Yes [id number] 2 puff EVERY 4 HOURS 2 puff EVERY 4 HOURS (route: inhalation ) Med Classific ation: Respirato ry Therapy Agents alfuzosin ER 10 mg tablet,exte nded release 24 hr 2024-09 00:00: 00 Yes [id number] 1 tablet EVERY AM 1 tablet EVERY AM (route: oral) Med Classific ation: Genitouri nary Therapy Breo Ellipta 200 mcg-25 mcg/dose powder for inhalation 2024-09 00:00: 00 Yes [id number] 1 inhalat ion DAILY 1 inhalation DAILY (route: inhalation ) Med Classific ation: Respirato ry Therapy Agents Centrum Silver Men 300 mcg-60 mcg-600 mcg-300 mcg tablet 2024-09 00:00: 00 Yes [id number] 1 tablet EVERY AM 1 tablet EVERY AM (route: oral) Med Classific ation: Electroly te Balance-N utritiona l Products finasteride 5 mg tablet 2024-09 00:00: 00 Yes [id number] 1 tablet EVERY AM 1 tablet EVERY AM (route: oral) Med Classific ation: Genitouri nary Therapy magnesium glycinate,m agnesium oxide 120 mg capsule 2024-09 00:00: 00 Yes [id number] 120 mg 2 TIMES DAILY 120 mg 2 TIMES DAILY (route: oral) Med Classific ation: Electroly te Balance-N utritiona l Products montelukast 10 mg tablet 2024-09 00:00: 00 Yes [id number] 1 tablet EVERY AM 1 tablet EVERY AM (route: oral) Med Classific ation: Respirato ry Therapy Agents pantoprazol e 40 mg tablet,rene yed release 2024-09 00:00: 00 Yes [id number] 1 tablet EVERY AM 1 tablet EVERY AM (route: oral) Med Classific ation: Gastroint estinal Therapy Agents ropinirole 0.5 mg tablet 2024-09 00:00: 00 Yes [id number] 1 tablet BEDTIME 1 tablet BEDTIME (route: oral) Med Classific ation: Central Nervous System Agents tamsulosin 0.4 mg capsule 2024-09 00:00: 00 Yes [id number] 1 capsule BEDTIME 1 capsule BEDTIME (route: oral) Med Classific ation: Genitouri nary Therapy Vital Signs Vital Name Observation Time Observation Value Commen ts Temperature 2025-07-31 14:24:00.000 97.1 [degF] Pulse 2025-07-31 14:24:00.000 76 /min Pulse 2025-07-25 17:48:00.000 74 /min O2 Saturation (%) 2025-07-25 17:50:00.000 94 % Respirations 2025-07-31 14:24:00.000 18 /min Systolic Blood Pressure 2025-07-31 14:24:00.000 138 mm [Hg] Diastolic Blood Pressure 2025-07-31 14:24:00.000 82 mm [Hg] Plan of Treatment Planned Activity Planned Date Details Comments Future Scheduled Test SKILLED NU RSE TO EVALUATE PATIENT, IDENTIFY PRIMARY AND CO-MORBID CONDITIONS CODED PER CODING GUIDELINES, AND DEVELOP PATIENT SPECIFIC PLAN OF CARE THAT INCLUDES PATIENT GOAL FOR HOME HEALTH. PLAN OF CARE TO INCLUDE 3 PRN VISIT(S) FOR OASIS DATA COLLECTION/COMPREHENSIVE ASSESSMENT AT TIMEPOINTS PER FEDERAL REGULATIONS. THIS INCLUDES VISITS FOR AILYN, RECERT, SCIC, AND/OR DC. [code = SKILLED NURSE TO EVALUATE PATIENT, IDENTIFY PRIMARY AND CO-MORBID CONDITIONS CODED PER CODING GUIDELINES, AND DEVELOP PATIENT SPECIFIC PLAN OF CARE THAT INCLUDES PATIENT GOAL FOR HOME HEALTH. PLAN OF CARE TO INCLUDE 3 PRN VISIT(S) FOR OASIS DATA COLLECTION/COMPREHENSIVE ASSESSMENT AT TIMEPOINTS PER FEDERAL REGULATIONS. THIS INCLUDES VISITS FOR AILYN, RECERT, SCIC, AND/OR DC.] Future Scheduled Test SKILLED NU RSE TO O/A OF PATIENTS MENTAL/BEHAVIORAL STATUS, ASSESS VITAL SIGNS EVERY VISIT, ALLOW 2 PRNS FOR MEDICATION MANAGEMENT. [code = SKILLED NURSE TO O/A OF PATIENTS MENTAL/BEHAVIORAL STATUS, ASSESS VITAL SIGNS EVERY VISIT, ALLOW 2 PRNS FOR MEDICATION MANAGEMENT.] Future Scheduled Test SKILLED NU RSE WILL MAINTAIN SITUATIONAL AWARENESS FOR SAFETY AND WILL NOTIFY CLINICAL SURVEYING CREW RODMAN AND PHYSICIAN/PROVIDER WITH ANY CHANGE IN CONDITION. [code = SKILLED NURSE WILL MAINTAIN SITUATIONAL AWARENESS FOR SAFETY AND WILL NOTIFY CLINICAL SURVEYING CREW RODMAN AND PHYSICIAN/PROVIDER WITH ANY CHANGE IN CONDITION.] Future Scheduled Test SKILLED NU RSE FOR O/A OF GENERAL HEALTH STATUS OF PAIN, CARDIAC, RESPIRATORY, GASTROINTESTINAL, GENITOURINARY, SKIN, NEUROLOGIC, ENDOCRINE SYSTEMS TO IDENTIFY CHANGES ASSOCIATED WITH EXACERBATION FOR EARLY INTERVENTION OF COMPLICATIONS. [code = SKILLED NURSE FOR O/A OF GENERAL HEALTH STATUS OF PAIN, CARDIAC, RESPIRATORY, GASTROINTESTINAL, GENITOURINARY, SKIN, NEUROLOGIC, ENDOCRINE SYSTEMS TO IDENTIFY CHANGES ASSOCIATED WITH EXACERBATION FOR EARLY INTERVENTION OF COMPLICATIONS.] Future Scheduled Test SKILLED NU RSE TO [...] WEEKLY.] Future Scheduled Test SKILLED NU RSE FOR O/A AND SKILLED TEACHING RELATED TO MANAGEMENT OF DEPRESSIVE SYMPTOMS AND/OR DEPRESSION. SN TO REPORT SIGNIFICANT CHANGE IN DEPRESSIVE SYMPTOMS TO CLINICAL PROVIDER FOR EARLY INTERVENTION. [code = SKILLED NURSE FOR O/A AND SKILLED TEACHING RELATED TO MANAGEMENT OF DEPRESSIVE SYMPTOMS AND/OR DEPRESSION. SN TO REPORT SIGNIFICANT CHANGE IN DEPRESSIVE SYMPTOMS TO CLINICAL PROVIDER FOR EARLY INTERVENTION.] Future Scheduled Test SKILLED NU RSE TO [...] SERVICES.] Future Scheduled Test SKILLED NU RSE FOR O/A OF CLIENT'S SOCIAL ISOLATION AND PROVIDE ASSISTANCE TO CLIENT IN DEVELOPMENT OF PLANNED ACTIVITIES [code = SKILLED NURSE FOR O/A OF CLIENT'S SOCIAL ISOLATION AND PROVIDE ASSISTANCE TO CLIENT IN DEVELOPMENT OF PLANNED ACTIVITIES] Future Scheduled Test SKILLED NU RSE MAY PICKUP AND TRANSPORT MEDICATIONS [code = SKILLED NURSE MAY PICKUP AND TRANSPORT MEDICATIONS] Future Scheduled Test PHYSICAL T HERAPIST TO EVALUATE PATIENT FOR STRENGTH, BALANCE, ENDURANCE [code = PHYSICAL THERAPIST TO EVALUATE PATIENT FOR STRENGTH, BALANCE, ENDURANCE] Future Scheduled Test OCCUPATION AL THERAPIST TO EVALUATE PATIENT FOR BATHROOM SAFETY, DRESSING SELF [code = OCCUPATIONAL THERAPIST TO EVALUATE PATIENT FOR BATHROOM SAFETY, DRESSING SELF] Future Scheduled Test MEDICAL SO CIAL WORKER TO EVALUATE PATIENT FOR ASSIST GETTING HIS [facility] BACK. [code = PLANTING SUPERVISOR TO EVALUATE PATIENT FOR ASSIST GETTING HIS [facility] BACK.] Future Scheduled Test PHYSICAL T HERAPIST TO EVALUATE PATIENT FOR STRENGTH, BALANCE, ENDURANCE [code = PHYSICAL THERAPIST TO EVALUATE PATIENT FOR STRENGTH, BALANCE, ENDURANCE] Future Scheduled Test OCCUPATION AL THERAPIST TO EVALUATE PATIENT FOR DRESSING, BATHROOM SAFETY [code = OCCUPATIONAL THERAPIST TO EVALUATE PATIENT FOR DRESSING, BATHROOM SAFETY] Future Scheduled Test MEDICAL SO CIAL WORKER TO EVALUATE PATIENT FOR ASSIST WITH GETTING BACK HIS [facility] [code = PLANTING SUPERVISOR TO EVALUATE PATIENT FOR ASSIST WITH GETTING BACK HIS [facility]] Future Scheduled Test SKILLED NU RSE TO INSTRUCT PATIENT/CAREGIVER ON COPD TO INCLUDE TEACHING AND SELF-MANAGEMENT RELATED TO COPD DISEASE PROCESS, SIGNS AND SYMPTOMS, AND COMPLICATIONS. [code = SKILLED NURSE TO INSTRUCT PATIENT/CAREGIVER ON COPD TO INCLUDE TEACHING AND SELF-MANAGEMENT RELATED TO COPD DISEASE PROCESS, SIGNS AND SYMPTOMS, AND COMPLICATIONS.] Future Scheduled Test SKILLED NU RSE FOR O/A OF CLIENT'S CURRENT DEGREE OF HOPELESSNESS AND PROVIDE THERAPEUTIC INTERVENTIONS AND TEACHING DESIGNED TO ENHANCE THE CLIENT'S WELL BEING. [code = SKILLED NURSE FOR O/A OF CLIENT'S CURRENT DEGREE OF HOPELESSNESS AND PROVIDE THERAPEUTIC INTERVENTIONS AND TEACHING DESIGNED TO ENHANCE THE CLIENT'S WELL BEING.] Future Scheduled Test SKILLED NU RSE TO INSTRUCT PATIENT/CAREGIVER ON COPD TO INCLUDE TEACHING AND SELF-MANAGEMENT RELATED TO COPD DISEASE PROCESS, SIGNS AND SYMPTOMS, AND COMPLICATIONS. [code = SKILLED NURSE TO INSTRUCT PATIENT/CAREGIVER ON COPD TO INCLUDE TEACHING AND SELF-MANAGEMENT RELATED TO COPD DISEASE PROCESS, SIGNS AND SYMPTOMS, AND COMPLICATIONS.] Goal Patient Goal - TO FEEL MY BE [facility] Goal Provider Goal - A PLAN OF CARE WILL BE ESTABLISHED THAT MEETS PATIENT'S [facility] NEEDS AND INCLUDES PATIENT GOAL FOR HOME HEALTH. Goal Provider Goal - ALTERED MENTAL/BEHAVIORAL STATUS [...] Provider Goal - PATIENT WILL REMAIN SAFE WITHOUT DECOMPENSATION IN DEPRESSIVE CONDITION, WHILE MAINTAINING OPTIMAL LEVEL OF MENTAL HEALTH AND WELL BEING THROUGHOUT CERTIFICATION PERIOD. Goal Provider Goal - PSYCHOSOCIAL NEEDS WILL BE IDENTIFIED AND PLAN IMPLEMENTED TO MINIMIZE RISK THROUGHOUT CERTIFICATION PERIOD. Goal Provider Goal - PATIENT WILL DEMONSTRATE AN INCREASED INTEREST IN SOCIALIZATION AND ACTIVITIES BY THE END OF THE CERTIFICATION PERIOD. Goal Provider Goal - SKILLED NURSE PICKED UP AND TRANSPORTED MEDICATIONS FOR SAFETY. Goal Provider Goal - A PHYSICAL THERAPY EVALUATION TO BE COMPLETED WITH RECOMMENDATIONS AND/OR WRITTEN PLAN OF TREATMENT ESTABLISHED FOR PHYSICIAN S SIGNATURE. Goal Provider Goal - OCCUPATIONAL THERAPY EVALUATION TO BE COMPLETED WITH RECOMMENDATIONS AND WRITTEN PLAN OF TREATMENT ESTABLISHED FOR THE PHYSICIAN S SIGNATURE. Goal Provider Goal - PLANTING SUPERVISOR TO COMPLETE EVALUATION TO ADDRESS THE PATIENT S SOCIAL AND EMOTIONAL FACTORS AND/OR WRITTEN PLAN OF TREATMENT ESTABLISHED FOR THE PHYSICIAN'S SIGNATURE. Goal Provider Goal - A PHYSICAL THERAPY EVALUATION TO BE COMPLETED WITH RECOMMENDATIONS AND/OR WRITTEN PLAN OF TREATMENT ESTABLISHED FOR PHYSICIAN S SIGNATURE. Goal Provider Goal - OCCUPATIONAL THERAPY EVALUATION TO BE COMPLETED WITH RECOMMENDATIONS AND WRITTEN PLAN OF TREATMENT ESTABLISHED FOR THE PHYSICIAN S SIGNATURE. Goal Provider Goal - PLANTING SUPERVISOR TO COMPLETE EVALUATION TO ADDRESS THE PATIENT S SOCIAL AND EMOTIONAL FACTORS AND/OR WRITTEN PLAN OF TREATMENT ESTABLISHED FOR THE PHYSICIAN'S SIGNATURE. Goal Provider Goal - PATIENT/CAREGIVER WILL VERBALIZE/DEMONSTRATE KNOWLEDGE AND MANAGEMENT OF COPD BY END OF EPISODE. Goal Provider Goal - PATIENT WILL VERBALIZE OWN ASSOCIATION OF FEELINGS OF HOPELESSNESS, AND 3 THERAPEUTIC TECHNIQUES TO DECREASE THESE FEELINGS BY THE END OF THIS CERTIFICATION. Goal Provider Goal - PATIENT/CAREGIVER WILL VERBALIZE/DEMONSTRATE KNOWLEDGE AND MANAGEMENT OF COPD BY END OF EPISODE. Encounters Start Date/Time End Date/Time Encounter Type Admission Type Attending [facility] Department Encounter ID Discharge Date Discharge Status Discharge Condition Discharge Reason Percent Goals Met 2025-07-25 00:00:00 2025-09-22 00:00:00 Outpatient TAY PRADHAN [facility] [id number] 18.60
== END 2025-08-07 16:17 | disposition home or self-care (01) ==
LOC: HO.HUSH 15:01
PROVIDERS: PCP Internal Medicine Medical Oncology; Visit Provider Urology
DX: Z97.8 Presence of other specified devices (principal)

== ENCOUNTER → 2025-08-07 15:01 | Outpatient (BNVA) | payer MEDICARE, SELFPAY | PROVIDERS: PCP Internal Medicine Medical Oncology; Visit Provider Urology | DX: Z46.6 Encounter for fitting and adjustment of urinary device (principal); Z97.8 Presence of other specified devices | CPT/HCPCS: 51702 ==

== ENCOUNTER → 2025-09-04 13:22 | Outpatient (BNVA) | payer MEDICARE, SELFPAY | PROVIDERS: PCP Internal Medicine Medical Oncology; Visit Provider Urology | DX: Z97.8 Presence of other specified devices (principal) | CPT/HCPCS: 51702 ==